=== PATIENT | male | born 1945 | race Caucasian/White ===

== ENCOUNTER → 2017-07-19 08:42 | Outpatient (CLI) | payer MEDICARE, OTHER, SELFPAY ==
[2017-07-19 10:38] LABS: PSA,Total- Diagnostic 0.08 ng/mL (0.0-4.0)
== END ==
PROVIDERS: Family Provider Family Medicine; PCP Family Medicine; Visit Provider Urology
DX: R97.20 Elevated prostate specific antigen [PSA] (principal)
CPT/HCPCS: 36415; 84153

== ENCOUNTER → 2017-09-14 10:40 | Outpatient (CLI) | payer MEDICARE, OTHER, SELFPAY ==
--- NOTE | 2017-09-14 10:41 | EKG12_ITS ---
Test Reason : PREOP Blood Pressure : / mmHG Vent. Rate : 077 BPM Atrial Rate : 077 BPM P-R Int : 176 ms QRS Dur : 150 ms QT Int : 448 ms P-R-T Axes : 066 007 042 degrees QTc Int : 506 ms Normal sinus rhythm Right bundle branch block Abnormal ECG Confirmed by DONTE LUU, SIERRA ([id number]), magazine editor CRISPIN GARCIA ([id number]) on 09/15/2017 9:09:32 AM Referred By: Siddharth Navarro Confirmed By:SIERRA KENT MD
== END ==
PROVIDERS: Family Provider Family Medicine; PCP Family Medicine; Visit Provider Urology
DX: Z01.818 Encounter for other preprocedural examination (principal)
CPT/HCPCS: 93005

== ENCOUNTER → 2017-11-23 07:45 | Outpatient (CLI) | payer MEDICARE, OTHER, SELFPAY ==
[2017-11-23 10:32] LABS: PSA,Total- Diagnostic 0.11 ng/mL (0.0-4.0)
== END ==
PROVIDERS: Family Provider Family Medicine; PCP Family Medicine; Visit Provider Urology
DX: C61 Malignant neoplasm of prostate (principal)
CPT/HCPCS: 36415; 84153

== ENCOUNTER → 2018-01-11 07:42 | Outpatient (CLI) | payer MEDICARE, OTHER, SELFPAY ==
[2018-01-11 08:19] LABS: Hematocrit 37.2 % (40-54); Hemoglobin 11.9 g/dl (13.0-16.5); Mean Corpuscular Hgb 26.5 pg (27.0-32.0); Mean Corpuscular Volume 82.9 fL (80-94); Mean Platelet Vol. 9.7 fl (6.2-12.0); Platelet Count 226 K/mm3 (150-450); RBC Distribution Width CV 15.1 % (11.6-14.6); RBC Distribution Width SD 45.3 fl (35.1-43.9); Red Blood Count 4.49 M/mm3 (4.6-6.2); White Blood Count 6.3 K/mm3 (4.4-11.0)
[2018-01-11 08:27] LABS: Scan Indicated on CBC? Y/N NO
[2018-01-11 08:39] LABS: Anion Gap 9 (5-15); BUN 20 mg/dL (7-18); BUN/Creat Ratio 16.4 RATIO (10-20); Calcium,Total 9.7 mg/dL (8.5-10.1); Chloride 105 mmol/L (98-107); Creatinine, Serum 1.22 mg/dL (0.70-1.30); EST Glomerular Filtration Rate 62 mL/min (>60); Est Glom Filt Rate - Afr Amer 75 mL/min (>60); Glucose 133 mg/dL (74-106); Potassium 4.4 mmol/L (3.5-5.1); Sodium Level 140 mmol/L (136-145)
== END ==
PROVIDERS: Family Provider Family Medicine; PCP Family Medicine; Visit Provider Urology
DX: Z01.812 Encounter for preprocedural laboratory examination (principal); I10 Essential (primary) hypertension; E78.00 Pure hypercholesterolemia, unspecified
CPT/HCPCS: 36415; 80048; 85027

== ENCOUNTER → 2018-01-19 17:32 | Outpatient (CLI) | payer MEDICARE, OTHER, SELFPAY | PROVIDERS: Family Provider Family Medicine; PCP Family Medicine; Visit Provider Urology | DX: R82.99 Other abnormal findings in urine (principal) | CPT/HCPCS: 87077; 87086; 87088; 87186 ==

== ENCOUNTER → 2018-02-07 16:59 | Outpatient (CLI) | payer MEDICARE, OTHER, SELFPAY | PROVIDERS: Referring Provider Urology; Visit Provider Urology | DX: R82.99 Other abnormal findings in urine (principal) | CPT/HCPCS: 87086 ==

== ENCOUNTER → 2018-02-28 08:17 | Outpatient (CLI) | payer MEDICARE, OTHER, SELFPAY ==
[2018-02-28 11:00] LABS: PSA,Total- Diagnostic 0.15 ng/mL (0.0-4.0)
== END ==
PROVIDERS: Family Provider Family Medicine; PCP Family Medicine; Referring Provider Urology; Visit Provider Urology
DX: C61 Malignant neoplasm of prostate (principal)
CPT/HCPCS: 36415; 84153

== ENCOUNTER → 2018-03-23 07:07 | Outpatient (CLI) | payer MEDICARE, OTHER, SELFPAY ==
[2018-03-23 11:03] LABS: AST(SGOT) 21 U/L (15-37); Alanine Aminotransfer ALT/SGPT 44 U/L (16-61); Albumin, Serum 3.8 g/dL (3.2-5.0); Alkaline Phosphatase 86 U/L (45-117); Anion Gap 11 (5-15); BUN 20 mg/dL (7-18); BUN/Creat Ratio 14.4 RATIO (10-20); Bilirubin, Direct 0.07 mg/dL (0.00-0.30); Calcium,Total 9.1 mg/dL (8.5-10.1); Chloride 107 mmol/L (98-107); Cholesterol 178 mg/dL (200); Creatinine, Serum 1.39 mg/dL (0.70-1.30); EST Glomerular Filtration Rate 53 mL/min (>60); Est Glom Filt Rate - Afr Amer 64 mL/min (>60); Globulin 3.8 g/dL (2.2-4.2); Glucose 122 mg/dL (74-106); High Density Lipoprotein 31 mg/dL; Protein, Total 7.6 g/dL (6.4-8.2); Sodium Level 143 mmol/L (136-145); Triglycerides 419 mg/dL
[2018-03-23 13:20] LABS: Microalbumin:Creatinine Ratio 672.9 mg/g CRE (<30 mg/g CRE)
== END ==
PROVIDERS: Family Provider Family Medicine; PCP Family Medicine; Referring Provider Family Medicine; Visit Provider Family Medicine
DX: E11.9 Type 2 diabetes mellitus without complications (principal)
CPT/HCPCS: 36415; 80048; 80061; 80076; 82043; 82570

== ENCOUNTER → 2018-05-30 13:43 | Outpatient (CLI) | payer MEDICARE, OTHER, SELFPAY ==
[2018-05-30 15:35] LABS: PSA,Total- Diagnostic 0.22 ng/mL (0.0-4.0)
== END ==
PROVIDERS: Family Provider Family Medicine; PCP Family Medicine; Referring Provider Urology; Visit Provider Urology
DX: C61 Malignant neoplasm of prostate (principal)
CPT/HCPCS: 36415; 84153

== ENCOUNTER 2018-06-23 05:52 | Day surgery (SDC) | payer MEDICARE, OTHER, SELFPAY ==
--- NOTE | 2018-06-22 17:03 | PCM.HP.BLA ---
History and Physical Date of Admission: 06/23/18 In 2004 patient had PSA of five and Chiqui 3+ 4, then had XRT . During follow-up evaluation develop rectal cancere and colostomy and closure and doing well. Apparently part of the prostate was and involved in the rectal cancer. PSA is increasing too quickly and now has adenopathy, abnormal prostate on CT and ureteral obstruction as well as questionable nodules in lungs. S/p bilateral stents. He had a CT scan at [facility]. And found to have ureteral obstruction. PSA in very low at 0.22 but rising , on Hormone therapy he is going to see Dr Funk we could start zytiga but will see what Dr Funk thinks plan to change his stent in Jun. ALLERGIES: None MEDICATIONS: Flomax 0.4 mg capsule 1 capsule PO BID Amlodipine Besylate 5 mg tablet Benazepril Hcl Losartan Potassium Metoprolol Succinate Simvastatin Notes: Had Pneumonia vaccine 2013 PSH: Catheterize For Residual - 01/19/2018 Cysto Remove Stent FB Sim - 01/13/2018, 09/16/2017 Cystoscopy Insert Stent - 01/13/2018, Right - 05/27/2017, 02/02/2017, 10/08/2016, 02/11/2016, 2013 Cystoscopy Retrogrades, Left - 05/27/2017, 02/11/2016 Depolupron 1 3 4 Month - 03/06/2018, 11/29/2017, 07/25/2017, 03/24/2017, 12/20/2016, 09/13/2016, 06/14/2016, 03/08/2016 Initial Male VB Sounds - 03/20/2018 Injection, Degarelix, 1 Mg - 02/02/2016 Prostate Needle Biopsy - 2004 NON- PSH: Colon Resection - 2013 Colonoscopy Patient documented to have received pneumococcal vaccination PMH: Post-traumatic urethral stricture, male, meatal - 03/20/2018 Benign prostatic hyperplasia with lower urinary tract symptoms (Stable) - 03/06/2018, - 02/02/2016, - 2015, - 2015, - 2015 Other retention of urine (Stable) - 03/06/2018, - 02/07/2018 (Stable), - 01/23/2018, - 01/19/2018 Acute cystitis without hematuria - 01/23/2018 Frequency of micturition - 01/23/2018 Nocturia - 01/23/2018 Urgency of urination - 01/23/2018 Elevated prostate specific antigen [PSA] - 07/25/2017 Malignant neoplasm of prostate - 03/24/2017, - 12/20/2016, - 10/26/2016, - 06/14/2016, - 2016, - 03/30/2016, - 02/23/2016, - 02/02/2016, - 2015, - 2015, - 2015, - 2014, - 2014, - 2013, - 2013, - 2013, - 2012 Histology/Primary Site: Adenocarcinoma, no subtype (morphologic abnormality), Malignant neoplasm of prostate Ch[place] Score: 7 (3+4) Clinical Staging: [id number], Stage IIIC, Staged by: Managing physician on 03/06/2018 Diagnostic Confirmation: Positive histology Behaviour, Grade: Malignant, primary site, Not applicable Laterality: Left Provider at the office diagnosed the cancer Other hydronephrosis - 03/24/2017, - 06/14/2016, - 2016 Unspecified hydronephrosis - 12/20/2016, - 10/26/2016 Gross hematuria - 03/30/2016 Hematuria, unspecified - 2013 Other microscopic hematuria - 2012 Dysuria Flaccid neuropathic bladder, not elsewhere classified Splitting of urinary stream NON- PMH: 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 Tobacco Use Assessment Completed: Used Smokeless in last 30 days? Smoking cessation counseling was provided. Does not use smokeless tobacco. Social Drinker. Does not use drugs. Drinks 2 caffeinated drinks per day. Has not had a blood transfusion. 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 REVIEW OF SYSTEMS: Constitutional: Patient denies fever, chills, weight loss, and weight gain. Genitourinary: Patient reports frequent urination and urinary retention. Patient denies get up at night to void, leakage of urine, blood in urine, frequent urinary tract infections, history of stones, weak stream, and bedwetting. Notes: Reviewed previous review of systems 03/06/2018. No changes. VITAL SIGNS: 06/08/2018 10:29 AM Weight 195 lb / 88.45 kg Height 66 in / 167.64 cm BP 142/92 mmHg BMI 31.5 kg/m? - BMI Counseling was provided. MULTI-SYSTEM PHYSICAL EXAMINATION: Constitutional: Well-nourished. No physical deformities. Normally developed. Good grooming. Neck: Neck symmetrical, not swollen. Normal tracheal position. Respiratory: No labored breathing, no use of accessory muscles. Cardiovascular: Normal temperature, normal extremity pulses, no swelling, no varicosities. Lymphatic: No enlargement of neck, axillae, groin. Skin: No paleness, no jaundice, no cyanosis. No lesion, no ulcer, no rash. Neurologic / Psychiatric: Oriented to time, oriented to place, oriented to person. No depression, no anxiety, no agitation. Gastrointestinal: No mass, no tenderness, no rigidity, non obese abdomen. Eyes: Normal conjunctivae. Normal eyelids. Ears, Nose, Mouth, and Throat: Left ear no scars, no lesions, no masses. Right ear no scars, no lesions, no masses. Nose no scars, no lesions, no masses. Normal hearing. Normal lips. Musculoskeletal: Normal gait and station of head and neck. PAST DATA REVIEWED: Source Of History: Patient 05/30/18 02/28/18 11/23/17 07/19/17 03/17/17 12/14/16 09/07/16 06/11/16 PSA Total PSA 0.22 ng/mL 0.15 ng/mL 0.11 ng/mL 0.08 ng/mL 0.08 ng/mL 0.08 ng/mL 0.09 mg/dl 0.15 mg/dl Notes [facility] [address] [place], [address] This test was performed using the TPSA assay method for the [employer] system. Values obtained with different assay methods cannot be used interchangably. When changing PSA assays in the course of monitoring a patient, additional sequential testing should be carried out to confirm baseline values. [facility] [address] [place], [address] This test was performed using the TPSA assay method for the [employer] chemistry system. Values obtained with different assay methods cannot be used interchangably. When changing PSA assays in the course of monitoring a patient, additional sequential testing should be carried out to confirm baseline values. [facility] [address] [place], [place], [id number] This test was performed using the TPSA assay method for the [employer] system. Values obtained with different assay methods cannot be used interchangably. When changing PSA assays in the course of monitoring a patient, additional sequential testing should be carried out to confirm baseline values. [facility] [address] [place], [address] This test was performed using the TPSA assay method for the [employer] chemistry system. Values obtained with different assay methods cannot be used interchangably. When changing PSA assays in the course of monitoring a patient, additional sequential testing should be carried out to confirm baseline values. [facility] [address] [place], [place], [id number] This test was performed using the TPSA assay method for the [employer] system. Values obtained with different assay methods cannot be used interchangably. When changing PSA assays in the course of monitoring a patient, additional sequential testing should be carried out to confirm baseline values. [facility] [address] [place], [place], [id number] This test was performed using the TPSA assay method for the [employer] system. Values obtained with different assay methods cannot be used interchangably. When changing PSA assays in the course of monitoring a patient, additional sequential testing should be carried out to confirm baseline values. 02/02/16 05/14/11 Hormones Testosterone, Total 245 ng/dL 202 pg/dL Notes [facility] [address] [place], [place], [id number] PROCEDURES: Urinalysis - 60347 Dipstick Dipstick Cont'd Specimen: Voided Blood: about 250 Appearance: Clear Protein: Neg Color: Yellow Urobilinogen: Neg Glucose: Normal Nitrites: Neg Bilirubin: Neg Leukocyte Esterase: 2+ Ketones: Neg Eligard (3month) - J9217, 03411 SQ injection. pt tolerated injection well . Qty: 1 Adm. By: VIGNESH HUBER Unit: kit Lot No [id number] Route: SQ Exp. Date 03/16/2019 Freq: Q3M Mfgr.: PRADIP Site: ruq ASSESSMENT: ICD-10 Details 1 : Malignant neoplasm of prostate - C61 2 Benign prostatic hyperplasia with lower urinary tract symptoms - N40.1 3 Frequency of micturition - R35.0 PLAN: Document Letter(s): Created for Patient: Clinical Summary Notes: 73-year-old male with a complicated history of prostate cancer treated with radiation therapy he then had rectal cancer which was involved in the prostate has retroperitoneal adenopathy. Required bilateral stents for obstruction and the stents need to be changed every so often. Plan the changes stents in June. Also had episode of urinary retention due to prostate, underwent Urolift procedure which is open up the prostate and now is able to urinate and not and retention anymore. Were to continue with hormone deprivation therapy. Last PSA was still fairly low at 0.22 but the patient is concerned about rising and were to continue with observation certainly we could continue treatments and may need to add zytiga or Xtandi if the PSA continues to go higher or if there's any signs of metastatic disease. He's also to see Dr. aMchado coming up shortly. I'll see him in three months for another Eligard. Plan for a stent change in [place].
--- NOTE | 2018-06-22 17:06 | HP.PCM_ITS ---
History and Physical Date of Admission: 06/23/18 In 2004 patient had PSA of five and Chiqui 3+ 4, then had XRT . During follow-up evaluation develop rectal cancere and colostomy and closure and doing well. Apparently part of the prostate was and involved in the rectal cancer. PSA is increasing too quickly and now has adenopathy, abnormal prostate on CT and ureteral obstruction as well as questionable nodules in lungs. S/p bilateral stents. He had a CT scan at [facility]. And found to have ureteral obstruction. PSA in very low at 0.22 but rising , on Hormone therapy he is going to see Dr Funk we could start zytiga but will see what Dr Funk thinks plan to change his stent in Jun. ALLERGIES: None MEDICATIONS: Flomax 0.4 mg capsule 1 capsule PO BID Amlodipine Besylate 5 mg tablet Benazepril Hcl Losartan Potassium Metoprolol Succinate Simvastatin Notes: Had Pneumonia vaccine 2013 PSH: Catheterize For Residual - 01/19/2018 Cysto Remove Stent FB Sim - 01/13/2018, 09/16/2017 Cystoscopy Insert Stent - 01/13/2018, Right - 05/27/2017, 02/02/2017, 10/08/2016, 02/11/2016, 2013 Cystoscopy Retrogrades, Left - 05/27/2017, 02/11/2016 Depolupron 1 3 4 Month - 03/06/2018, 11/29/2017, 07/25/2017, 03/24/2017, 12/20/2016, 09/13/2016, 06/14/2016, 03/08/2016 Initial Male VB Sounds - 03/20/2018 Injection, Degarelix, 1 Mg - 02/02/2016 Prostate Needle Biopsy - 2004 NON- PSH: Colon Resection - 2013 Colonoscopy Patient documented to have received pneumococcal vaccination PMH: Post-traumatic urethral stricture, male, meatal - 03/20/2018 Benign prostatic hyperplasia with lower urinary tract symptoms (Stable) - 03/06/2018, - 02/02/2016, - 2015, - 2015, - 2015 Other retention of urine (Stable) - 03/06/2018, - 02/07/2018 (Stable), - 018, - 01/19/2018 Acute cystitis without hematuria - 01/23/2018 Frequency of micturition - 01/23/2018 Nocturia - 01/23/2018 Urgency of urination - 01/23/2018 Elevated prostate specific antigen [PSA] - 07/25/2017 Malignant neoplasm of prostate - 03/24/2017, - 12/20/2016, - 10/26/2016, - 06/14/2016, - 2016, - 03/30/2016, - 02/23/2016, - 02/02/2016, - 2015, - 2015, - 2015, - 2014, - 2014, - 2013, - 2013, - 2013, - 2012 Histology/Primary Site: Adenocarcinoma, no subtype (morphologic abnormality), Malignant neoplasm of prostate [place] Score: 7 (3+4) Clinical Staging: [id number], Stage IIIC, Staged by: Managing physician on 03/06/2018 Diagnostic Confirmation: Positive histology Behaviour, Grade: Malignant, primary site, Not applicable Laterality: Left Provider at the office diagnosed the cancer Other hydronephrosis - 03/24/2017, - 06/14/2016, - 2016 Unspecified hydronephrosis - 12/20/2016, - 10/26/2016 Gross hematuria - 03/30/2016 Hematuria, unspecified - 2013 Other microscopic hematuria - 2012 Dysuria Flaccid neuropathic bladder, not elsewhere classified Splitting of urinary stream NON- PMH: 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 Tobacco Use Assessment Completed: Used Smokeless in last 30 days? Smoking cessation counseling was provided. Does not use smokeless tobacco. Social Drinker. Does not use drugs. Drinks 2 caffeinated drinks per day. Has not had a blood transfusion. 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 REVIEW OF SYSTEMS: Constitutional: Patient denies fever, chills, weight loss, and weight gain. Genitourinary: Patient reports frequent urination and urinary retention. Patient denies get up at night to void, leakage of urine, blood in urine, frequent urinary tract infections, history of stones, weak stream, and bedwetting. Notes: Reviewed previous review of systems 03/06/2018. No changes. VITAL SIGNS: 06/08/2018 10:29 AM Weight 195 lb / 88.45 kg Height 66 in / 167.64 cm BP 142/92 mmHg BMI 31.5 kg/m? - BMI Counseling was provided. MULTI-SYSTEM PHYSICAL EXAMINATION: Constitutional: Well-nourished. No physical deformities. Normally developed. Good grooming. Neck: Neck symmetrical, not swollen. Normal tracheal position. Respiratory: No labored breathing, no use of accessory muscles. Cardiovascular: Normal temperature, normal extremity pulses, no swelling, no varicosities. Lymphatic: No enlargement of neck, axillae, groin. Skin: No paleness, no jaundice, no cyanosis. No lesion, no ulcer, no rash. Neurologic / Psychiatric: Oriented to time, oriented to place, oriented to person. No depression, no anxiety, no agitation. Gastrointestinal: No mass, no tenderness, no rigidity, non obese abdomen. Eyes: Normal conjunctivae. Normal eyelids. Ears, Nose, Mouth, and Throat: Left ear no scars, no lesions, no masses. Right ear no scars, no lesions, no masses. Nose no scars, no lesions, no masses. Normal hearing. Normal lips. Musculoskeletal: Normal gait and station of head and neck. PAST DATA REVIEWED: Source Of History: Patient 05/30/18 02/28/18 11/23/17 07/19/17 03/17/17 12/14/16 09/07/16 06/11/16 PSA Total PSA 0.22 ng/mL 0.15 ng/mL 0.11 ng/mL 0.08 ng/mL 0.08 ng/mL 0.08 ng/mL 0.09 mg/dl 0.15 mg/dl Notes [facility] [address] [place], [address] This test was performed using the TPSA assay method for the [employer] system. Values obtained with different assay methods cannot be used i nterchangably. When changing PSA assays in the course of monitoring a patient, additional sequential testing should be carried out to confirm baseline values. [facility] [address] [place], [address] This test was performed using the TPSA assay method for the [employer] system. Values obtained with different assay methods cannot be used interc hangably. When changing PSA assays in the course of monitoring a patient, additional sequential testing should be carried out to confirm baseline values. [facility] [address] [place], [place], [id number] This test was performed using the TPSA assay method for the [employer] system. Values obtained with different assay methods cannot be used interchanga mita. When changing PSA assays in the course of monitoring a patient, additional sequential testing should be carried out to confirm baseline values. [facility] [address] [place], [address] This test was performed using the TPSA assay method for the [employer] system. Values obtained with different assay methods cannot be used interchangably. When changing PSA assays in the course of monitoring a patient, additional sequential testing should be carried out to confirm baseline values. [facility] [address] [place], [place], [id number] This test was performed using the TPSA assay method for the [employer] system. Values obtained with different assay methods cannot be used interchangably. When changing PSA assays in the course of monitoring a patient, additional sequential testing should be carried out to confirm baseline values. [facility] [address] [place], [place], [id number] This test was performed using the TPSA assay method for the [employer] system. Values obtained with different assay methods cannot be used interchangably. When changing PSA assays in the course of monitoring a patient, additional sequential testing should be carried out to confirm baseline values. 02/02/16 05/14/11 Hormones Testosterone, Total 245 ng/dL 202 pg/dL Notes [facility] [address] [place], [place], [id number] PROCEDURES: Urinalysis - 26714 Dipstick Dipstick Cont'd Specimen: Voided Blood: about 250 Appearance: Clear Protein: Neg Color: Yellow Urobilinogen: Neg Glucose: Normal Nitrites: Neg Bilirubin: Neg Leukocyte Esterase: 2+ Ketones: Neg Eligard (3month) - J9217, 05706 SQ injection. pt tolerated injection well . Qty: 1 Adm. By: VIGNESH HUBER Unit: kit Lot No [id number] Route: SQ Exp. Date 03/16/2019 Freq: Q3M Mfgr.: PRADIP Site: ruq ASSESSMENT: ICD-10 Details 1 : Malignant neoplasm of prostate - C61 2 Benign prostatic hyperplasia with lower urinary tract symptoms - N40.1 3 Frequency of micturition - R35.0 PLAN: Document Letter(s): Created for Patient: Clinical Summary Notes: 73-year-old male with a complicated history of prostate cancer treated with radiation therapy he then had rectal cancer which was involved in the prostate has retroperitoneal adenopathy. Required bilateral stents for obstruction and the stents need to be changed every so often. Plan the changes stents in June. Also had episode of urinary retention due to prostate, underwent Urolift procedure which is open up the prostate and now is able to urinate and not and retention anymore. Were to continue with hormone deprivation therapy. Last PSA was still fairly low at 0.22 but the patient is concerned about rising and were to continue with observation certainly we could continue treatments and may need to add zytiga or Xtandi if the PSA continues to go higher or if there's any signs of metastatic disease. He's also to see Dr. Machado coming up shortly. I'll see him in three months for another Eligard. Plan for a stent change in [place].
[2018-06-23 06:27] VITALS: BP 191/86; PULSE 76; RESP 16; TEMP 36.4; O2SAT 100; BMI 29.6
[2018-06-23] MEDS: Cefazolin 2 GM in 0.9% Normal Saline 100 ML IV (07:19)
--- NOTE | 2018-06-23 07:51 | DCINST_ITS ---
Discharge Diet: Light diet - advance as tolerated Discharge Activity: Return to Normal Activity Call your doctor if your incision/area has: Continuous Slow Oozing, Sudden Increased Bleeding, Increased Pain/ Swelling, Increased Redness Call your doctor if you observe: Fever of 101 or Higher, Inability to urinate Suture Line Care: Avoid Pulling/Pushing, Avoid Pinching/Bending Allergies/Adverse Reactions: Allergies meperidine [From Demerol] Adverse Reaction (Verified 06/16/18 10:49) Nausea/Vom/Diarrhea Medications to take at Discharge Amlodipine [Norvasc] 5 mg PO DAILY 06/01/13 Benazepril HCl [Lotensin] 20 mg PO DAILY 06/01/13 Losartan Potassium [Cozaar] 100 mg PO DAILY 06/01/13 Metoprolol(XL)Succ [Toprol Xl (Beta Sophia)] 100 mg PO DAILY 06/01/13 Simvastatin [Zocor] 20 mg PO DAILY 06/01/13 Tamsulosin HCl [Flomax] 0.4 mg PO DAILY 06/16/18 Primary Care Physician: Rigo Izaguirre MD [Primary Care Provider] - Test Results: Test results from this visit will be discussed in further detail at your follow- up appointment, if applicable. Please Follow Up With: Siddharth Navarro MD When: KEEP APPT FOR NEXT INJECTION.
--- NOTE | 2018-06-23 07:54 | OP.PCM_ITS ---
Report of Operation Date of Procedure: 06/23/18 Pre-Operative Diagnosis: Prostate cancer bilateral hydronephrosis history of colon cancer and radiation Post-Operative Diagnosis: Same Surgery/Procedure Performed:: Cystoscopy and bilateral stent changes Description of Surgical Findings:: 73-year-old male who has a history of prostate cancer also has a history of colorectal cancer underwent radiation therapy had chemotherapy in the past has developed bilateral obstruction of both ureters which is managed with chronic stents and the stents were in their 6 months ago so he needs a new stent now is a due to get encrusteD. 73-year-old male taken back to the operating room at the smooth induction of anesthesia he was placed supine on the table. The penis and testicles are prepped and draped in usual sterile fashion. Went into the urethra with a 21 Hungarian rigid cystourethroscope the urethra was a little narrow the bulbar urethra had a minor annular stricture was able to get through this with the scope turning the scope up towards the bladder quite difficult very stiff hard from radiation got to the prostate and then identified the stent on the left side grab the stent pulled out the meatus advanced a wire through the stent backloaded over the wire with the scope and then went back into the bladder again very rigid prostate had to be very careful into point down the scope to get all through the prostate very hard rigid prostate from radiation I then pushes stent up in the good position pulled the wire and the stent called coiled in the bladder in good position I then grabbed the other stent on the right side again pulled out the meatus put a wire to the stent on the right side and then went back in the bladder and same situation with a very stiff hard prostate and then advanced a stent up on the right side once stent was in good position pulled the wire and the stent coiled in the bladder I then drained the bladder patient's anesthetic was reversed he needs to urinate before he goes home and then he will see me in a few months for his next hormone deprivation therapy shot. Type of Anesthesia:: General Drains: BILATERAL STENTS - Admit VTE Documentation VTE Present on Admission: No VTE Mechan Device Prophylaxis: SCD's
[2018-06-23 07:55] VITALS: BP 141/77; BP 191/86; PULSE 70; RESP 16; TEMP 36.2; O2SAT 97
[2018-06-23 08:00] VITALS: BP 141/79; BP 191/86; PULSE 69; RESP 16; O2SAT 95
[2018-06-23 08:17] VITALS: BP 160/85; BP 191/86; PULSE 69; RESP 18; TEMP 36.2; O2SAT 97
[2018-06-23 09:59] VITALS: BP 145/87; BP 191/86; PULSE 80; RESP 18; TEMP 36.6; O2SAT 99
== END 2018-06-23 10:02 | disposition home or self-care (01) ==
LOC: SDC 05:53 → AC 05:54
PROVIDERS: Family Provider Family Medicine; PCP Family Medicine; Referring Provider Urology; Visit Provider Urology
DX: N40.1 Benign prostatic hyperplasia with lower urinary tract symptoms (principal); R33.8 Other retention of urine; C61 Malignant neoplasm of prostate; N13.1 Hydronephrosis with ureteral stricture, not elsewhere classified; R35.0 Frequency of micturition; R97.21 Rising PSA following treatment for malignant neoplasm of prostate; C78.00 Secondary malignant neoplasm of unspecified lung; I10 Essential (primary) hypertension; E78.00 Pure hypercholesterolemia, unspecified; Z85.038 Personal history of other malignant neoplasm of large intestine; Z93.3 Colostomy status; Z79.899 Other long term (current) drug therapy
CPT/HCPCS: 00910; 52332; J7120; C1769; C2617; J2405

== ENCOUNTER → 2018-09-04 09:02 | Outpatient (CLI) | payer MEDICARE, OTHER, SELFPAY ==
[2018-09-04 10:47] LABS: PSA,Total - Annual Screen 0.26 ng/mL (0.00-4.00)
[2018-09-04 13:44] LABS: PSA,Total- Diagnostic 0.26 ng/mL (0.0-4.0)
== END ==
PROVIDERS: Family Provider Family Medicine; PCP Family Medicine; Referring Provider Urology; Visit Provider Urology
DX: C61 Malignant neoplasm of prostate (principal)
CPT/HCPCS: 36415; 84153; G0103

== ENCOUNTER → 2018-09-22 07:28 | Outpatient (CLI) | payer MEDICARE, OTHER, SELFPAY ==
[2018-09-22 10:32] LABS: Absolute Lymphocyte Count 1.13 X10^3/ul (0.83-4.51); Absolute Neutrophil Count 3.2 X10^3/uL (2.0-7.7); Basophil# 0.03 X10^3/uL; Basophil% 0.6 % (0-1); Eosinophil# 0.42 X10^3/uL; Eosinophils% 7.7 % (0-5); Hematocrit 37.8 % (40-54); Hemoglobin 12.5 g/dl (13.0-16.5); Lymphocyte # 1.13 X10^3/ul (4.0); Lymphocyte % 20.8 % (19-41); Mean Corp Hgb Conc 33.1 g/gl (32-36); Mean Corpuscular Hgb 26.8 pg (27.0-32.0); Mean Corpuscular Volume 80.9 fL (80-94); Mean Platelet Vol. 10.4 fl (6.2-12.0); Monocyte# 0.62 X10^3/uL; Monocyte% 11.4 % (0-10); Neutrophil # 3.21 X10^3/uL (2.7-7.7); Neutrophil % 59.3 % (47-70); Platelet Count 201 K/mm3 (150-450); RBC Distribution Width CV 14.9 % (11.6-14.6); RBC Distribution Width SD 43.7 fl (35.1-43.9); Red Blood Count 4.67 M/mm3 (4.6-6.2); White Blood Count 5.4 K/mm3 (4.4-11.0)
[2018-09-22 10:33] LABS: POSITIVE COUNT NO; POSITIVE DIFFERENTIAL NO; POSITIVE MORPHOLOGY NO
[2018-09-22 10:58] LABS: Anion Gap 7 (5-15); BUN 25 mg/dL (7-18); BUN/Creat Ratio 19.2 RATIO (10-20); Calcium,Total 9.2 mg/dL (8.5-10.1); Chloride 107 mmol/L (98-107); Cholesterol 212 mg/dL (200); EST Glomerular Filtration Rate 57 mL/min (>60); Est Glom Filt Rate - Afr Amer 69 mL/min (>60); Glucose 125 mg/dL (74-106); High Density Lipoprotein 35 mg/dL; Potassium 4.2 mmol/L (3.5-5.1); Sodium Level 141 mmol/L (136-145); Thyroid Stim Hormone (TSH) 2.05 uIU/mL (0.358-3.74); Triglycerides 555 mg/dL
== END ==
PROVIDERS: Family Provider Family Medicine; PCP Family Medicine; Referring Provider Family Medicine; Visit Provider Family Medicine
DX: I10 Essential (primary) hypertension (principal); R53.83 Other fatigue
CPT/HCPCS: 36415; 80048; 80061; 84443; 85025

== ENCOUNTER → 2018-12-11 08:18 | Outpatient (CLI) | payer MEDICARE, OTHER, SELFPAY ==
[2018-12-11 11:18] LABS: PSA,Total- Diagnostic 0.43 ng/mL (0.0-4.0)
== END ==
PROVIDERS: Family Provider Family Medicine; PCP Family Medicine; Referring Provider Urology; Visit Provider Urology
DX: C61 Malignant neoplasm of prostate (principal)
CPT/HCPCS: 36415; 84153

== ENCOUNTER 2019-01-05 10:46 | Day surgery (SDC) | payer MEDICARE, OTHER, SELFPAY ==
[2018-12-22 17:14] VITALS: BMI 29.6
[2019-01-05 11:21] VITALS: BP 174/84; PULSE 69; RESP 16; TEMP 35.5; O2SAT 98; BMI 29.2
[2019-01-05] MEDS: Lactated Ringers 1,000 ML 75 ML IV (11:39)
[2019-01-05] MEDS: Cefazolin 2 GM in 0.9% Normal Saline 100 ML IV (13:25)
--- NOTE | 2019-01-05 14:00 | OP.PCM_ITS ---
Report of Operation Date of Procedure: 01/05/19 Pre-Operative Diagnosis: Bilateral ureteral obstruction history of prostate cancer Post-Operative Diagnosis: The same Surgery/Procedure Performed:: Right retrograde pyelogram interpretation of fluoroscopic and images and right stent change, left retrograde pyelogram interpretation of fluoroscopic images a left stent change cystoscopy. Description of Surgical Findings:: 73-year-old male with a history of prostate cancer he is on hormone deprivation therapy he has chronic bilateral obstruction which is managed with chronic bilateral stents the stent is due to be changed presents to the operating room for bilateral stent change and retrograde pyelograms 73-year-old male taken back to the operating with smooth induction of general anesthesia he was placed in dorsolithotomy position penis and testicles were prepped and draped in usual sterile fashion went into the urethra with a 21 Setswana rigid cystourethroscope the entire length urethra is normal the sphincter was really tight the prostate was extremely tight as it is went through with the scope he had some scar tissue that developed within the prostatic urethra once I got inside the bladder grabbed the right stent pulled out the meatus put a wire up to the right stent over the wire for the Pollick catheter the retrograde pyelogram and then advanced a wire over the stent in the wire through the Pollick catheter Ms. wire up to the kidney and then pulled the wire and the cancer stent coiled in the bladder and grabbed the left stent pulled out the meatus advance a wire through the stent advance a Pollack catheter over the wire then a retrograde pyelogram and then I could see contrast in the kidney and then advanced a wire up the Pollick catheter backloaded the Pollick catheter off and then over the wire advanced a stent once a stent was good position and pulled the wire stent the kidney bladder good position on both sides drained the bladder and the patient anesthetic was reversed and I will see him next time he gets his hormone shot. Of note the prostatic urethra was very hard had scarred down it was very difficult to get in with the cystoscope to the prostatic urethra. Type of Anesthesia:: General Drains: stent/ b/l - Admit VTE Documentation VTE Present on Admission: No VTE Mechan Device Prophylaxis: SCD's
--- NOTE | 2019-01-05 14:00 | DCINST_ITS ---
Discharge Diet: Light diet - advance as tolerated Discharge Activity: Return to Normal Activity Allergies/Adverse Reactions: Allergies meperidine [From Demerol] Adverse Reaction (Verified 12/26/18 11:03) Nausea/Vom/Diarrhea Medications to take at Discharge Amlodipine [Norvasc] 5 mg PO DAILY 06/01/13 Benazepril HCl [Lotensin] 20 mg PO DAILY 06/01/13 Losartan Potassium [Cozaar] 100 mg PO DAILY 06/01/13 Metoprolol(XL)Succ [Toprol Xl (Beta Sophia)] 100 mg PO DAILY 06/01/13 Simvastatin [Zocor] 40 mg PO DAILY 06/01/13 leuprolide 22.5 mg (3 month) subcutaneous syringe 22.5 mg SC [id number] 12/22/18 Tamsulosin HCl [Flomax] 0.4 mg PO DAILY 12/26/18 Primary Care Physician: Rigo Izaguirre MD [Primary Care Provider] - Test Results: Test results from this visit will be discussed in further detail at your follow- up appointment, if applicable. Please Follow Up With: Siddharth Navarro MD When: please call to make an appointment.
[2019-01-05 14:08] VITALS: BP 151/80; BP 174/84; PULSE 71; RESP 16; TEMP 36.8; O2SAT 97
[2019-01-05 14:15] VITALS: BP 149/82; BP 174/84; PULSE 70; RESP 16; O2SAT 97
[2019-01-05 14:30] VITALS: BP 150/86; BP 174/84; PULSE 68; RESP 16; TEMP 36.6; O2SAT 94
[2019-01-05 15:26] VITALS: BP 146/72; BP 174/84; PULSE 72; RESP 16; O2SAT 98
== END 2019-01-05 17:02 | disposition home or self-care (01) ==
LOC: SDC 10:47 → AC 10:48
PROVIDERS: Family Provider Family Medicine; PCP Family Medicine; Referring Provider Urology; Visit Provider Urology
PROC: (CPT 52332; principal; 2019-01-05 12:25)
DX: N13.5 Crossing vessel and stricture of ureter without hydronephrosis (principal); C61 Malignant neoplasm of prostate; R97.21 Rising PSA following treatment for malignant neoplasm of prostate; E78.00 Pure hypercholesterolemia, unspecified; I10 Essential (primary) hypertension; N40.1 Benign prostatic hyperplasia with lower urinary tract symptoms; N13.39 Other hydronephrosis; R35.0 Frequency of micturition; Z93.3 Colostomy status; Z79.899 Other long term (current) drug therapy
CPT/HCPCS: 00910; 52332; 76000; J7120; C1769; C2617; J2405

== ENCOUNTER → 2019-02-08 09:19 | Outpatient (CLI) | payer MEDICARE, OTHER, SELFPAY ==
[2019-02-08 14:11] LABS: Color, Urine Yellow (Yellow); Glucose, Dipstick Normal (Normal); Ketone-Dipstick Negative (Negative); Leukocyte Esterase-Dipstick 500 /ul (Negative); Nitrite-Dipstick Negative (Negative); Occult Blood-Urine 250 /ul (Negative); Protein-Dipstick 100 mg/dl (Negative); Specific Gravity, Urine 1.015 (1.002-1.030); Urine Bilirubin Dipstick Negative (Negative); Urine Clarity Sl. Cloudy (Clear); Urine Urobilinogen Normal (Normal)
== END ==
PROVIDERS: Family Provider Family Medicine; PCP Family Medicine; Referring Provider Urology; Visit Provider Urology
DX: N39.0 Urinary tract infection, site not specified (principal)
CPT/HCPCS: 81002; 87086; 87088

== ENCOUNTER → 2019-03-14 13:18 | Outpatient (CLI) | payer MEDICARE, OTHER, SELFPAY ==
[2019-03-14 14:39] LABS: PSA,Total- Diagnostic 0.41 ng/mL (0.0-4.0)
== END ==
PROVIDERS: Family Provider Family Medicine; PCP Family Medicine; Referring Provider Urology; Visit Provider Urology
DX: C61 Malignant neoplasm of prostate (principal); R97.20 Elevated prostate specific antigen [PSA]
CPT/HCPCS: 36415; 84153

== ENCOUNTER → 2019-05-01 07:36 | Outpatient (CLI) | payer MEDICARE, OTHER, SELFPAY ==
[2019-05-01 10:25] LABS: Anion Gap 6 (5-15); BUN 28 mg/dL (7-18); BUN/Creat Ratio 20.6 RATIO (10-20); Calcium,Total 9.2 mg/dL (8.5-10.1); Chloride 108 mmol/L (98-107); Cholesterol 186 mg/dL (200); Creatinine, Serum 1.36 mg/dL (0.70-1.30); EST Glomerular Filtration Rate 54 mL/min (>60); Est Glom Filt Rate - Afr Amer 66 mL/min (>60); Glucose 135 mg/dL (74-106); High Density Lipoprotein 34 mg/dL; Potassium 4.2 mmol/L (3.5-5.1); Sodium Level 141 mmol/L (136-145); Triglycerides 376 mg/dL; Very Low Density Lipoprotein 75 mg/dL (5-40)
== END ==
PROVIDERS: Family Provider Family Medicine; PCP Family Medicine; Referring Provider Family Medicine; Visit Provider Family Medicine
DX: I10 Essential (primary) hypertension (principal)
CPT/HCPCS: 36415; 80048; 80061

== ENCOUNTER → 2019-06-18 10:52 | Outpatient (CLI) | payer MEDICARE, OTHER, SELFPAY ==
[2019-06-18 12:41] LABS: PSA,Total- Diagnostic 0.48 ng/mL (0.0-4.0)
== END ==
PROVIDERS: PCP Family Medicine; Referring Provider Urology; Visit Provider Urology
DX: C61 Malignant neoplasm of prostate (principal)
CPT/HCPCS: 36415; 84153

== ENCOUNTER → 2019-06-26 11:39 | Outpatient (CLI) | payer MEDICARE, OTHER, SELFPAY | PROVIDERS: PCP Family Medicine; Referring Provider Family Medicine; Visit Provider Family Medicine | DX: N39.0 Urinary tract infection, site not specified (principal) | CPT/HCPCS: 87077; 87086; 87088; 87186 ==

== ENCOUNTER 2019-07-11 13:44 | Day surgery (SDC) | payer MEDICARE, OTHER, SELFPAY ==
[2019-07-11 14:19] VITALS: BP 149/72; PULSE 75; RESP 16; TEMP 36.2; O2SAT 96; BMI 29.4
[2019-07-11] MEDS: Lactated Ringers 1,000 ML 100 ML IV (14:47)
[2019-07-11] MEDS: Cefazolin 2 GM in 0.9% Normal Saline 100 ML IV (15:39)
--- NOTE | 2019-07-11 16:24 | DCINST_ITS ---
Discharge Diet: Light diet - advance as tolerated Discharge Activity: Return to Normal Activity, May Shower Call your doctor if you observe: Fever of 101 or Higher Catheter: Guthrie to leg bag Drain: [place] Allergies/Adverse Reactions: Allergies meperidine [From Demerol] Adverse Reaction (Verified 07/04/19 08:07) Nausea/Vom/Diarrhea Medications to take at Discharge Amlodipine [Norvasc] 5 mg PO DAILY 06/01/13 Benazepril HCl [Lotensin] 20 mg PO DAILY 06/01/13 Losartan Potassium [Cozaar] 100 mg PO DAILY 06/01/13 Metoprolol(XL)Succ [Toprol Xl (Beta Sophia)] 100 mg PO DAILY 06/01/13 Simvastatin [Zocor] 40 mg PO DAILY 06/01/13 leuprolide (3 month) 22.5 mg (3 month) subcutaneous syringe 22.5 mg SC [id number] 12/22/18 Ciprofloxacin [Cipro] 500 mg PO BID #6 tab 01/05/19 Ciprofloxacin [Cipro] 500 mg PO BID #14 tab 07/11/19 The following prescriptions were given: Ciprofloxacin [Cipro] 500 mg PO BID #14 tab Transmission Status: Pending to [id number] Primary Care Physician: Rigo Izaguirre MD [Primary Care Provider] - Test Results: Test results from this visit will be discussed in further detail at your follow- up appointment, if applicable. Please Follow Up With: Siddharth Navarro MD When: in 2 weeks, please call to make an appointment.
--- NOTE | 2019-07-11 16:26 | PCM.OPRPT ---
Report of Operation Date of Procedure: 07/11/19 Pre-Operative Diagnosis: Prostatic urethral stricture, history of prostate cancer with radiation bilateral ureteral scar tissue causing bilateral obstruction Post-Operative Diagnosis: The same Surgery/Procedure Performed:: Cystoscopy, dilation of urethral stricture, prostatic, left retrograde pyelogram interpretation fluoroscopic images and left stent placement. Right retrograde pyelogram interpretation fluoroscopic images and right stent placement. Guthrie placement Complicated. 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 He has been self dilating but stopped recently because he had some difficulties dilating the urethra probably has a recurrent stricture in the prosthetic urethra. Has a very scarred down prostate. Patient was taken back to the operating room after general anesthesia he was placed in dorsolithotomy position the urethra and penis testicles were prepped and draped in usual fashion, went into the bladder and through the urethra entire length the urethra was okay except until I got to the bulbar urethra and the prostatic urethra right at the sphincter really tight area. Could not get through the scope. I then used a sounds and dilated the stricture starting at [address] up to 28 Mauritanian after dilating this and then I was able to get through with a 21 Mauritanian rigid cystourethroscope again going to the prostate is extremely tight very tight prostate. Once inside the bladder I grabbed the left stent pulled out the meatus put a wire up the stent over the wire I backloaded off the stent and then backloaded the Catheter up and then performed a retrograde pyelogram could see the contrast in the kidney and then loaded up a wire through the Pollick catheter and then backloaded over the wire and then over the wire advanced a stent it was a 6 Mauritanian by 24 cm stent.. Once the stent was in good position then I pulled out the wire and the stent coiled in the kidney bladder good position I then went to the other side and grabbed the stent, grabbed the left stent pulled out the meatus pulled a wire through the left stent was able to get up to the kidney and then over the stent I backloaded the stent off the wire. I then advanced a new Pollick catheter over the wire and performed a retrograde pyelogram. I then advanced a stent up on the left side once a stent was a good position and pulled the wire of the stent coiled in the kidney bladder good position. I then drained the bladder both stents were in place he had extensive scarred scar tissue that was in the prostatic urethra that had to be dilated so we can put a catheter in over a wire I put a 18 Mauritanian moapa tip catheter he will go home with a catheter for 2 weeks and will remove in 2 weeks in the office he will go home with antibiotics. Type of Anesthesia:: General Drains: stent bilateral. - Admit VTE Documentation VTE Present on Admission: No VTE Mechan Device Prophylaxis: SCD's
[2019-07-11 16:35] VITALS: BP 149/72; BP 150/84; PULSE 74; RESP 16; TEMP 36.4; O2SAT 97
[2019-07-11 16:45] VITALS: BP 131/67; BP 149/72; PULSE 73; RESP 16; O2SAT 98
[2019-07-11 17:00] VITALS: BP 149/72; BP 158/78; PULSE 71; RESP 16; O2SAT 97
[2019-07-11 17:08] VITALS: BP 148/72; BP 149/72; PULSE 71; RESP 16; TEMP 36.7; O2SAT 97
[2019-07-11 18:28] VITALS: BP 148/63; BP 149/72; PULSE 84; RESP 20; TEMP 36.7; O2SAT 97
== END 2019-07-11 18:38 | disposition home or self-care (01) ==
LOC: SDC 13:44 → AC 13:46
PROVIDERS: PCP Family Medicine; Referring Provider Urology; Visit Provider Urology
PROC: (CPT 52332; principal; 2019-07-11 15:30)
DX: Z46.6 Encounter for fitting and adjustment of urinary device (principal); N35.819 Other urethral stricture, male, unspecified site; E78.00 Pure hypercholesterolemia, unspecified; I10 Essential (primary) hypertension; T66.XXXA Radiation sickness, unspecified, initial encounter; Y84.2 Radiological procedure and radiotherapy as the cause of abnormal reaction of the patient, or of later complication, without mention of misadventure at the time of the procedure; Z93.3 Colostomy status; Z79.899 Other long term (current) drug therapy; Z85.46 Personal history of malignant neoplasm of prostate; N35.011 Post-traumatic bulbous urethral stricture; Z85.118 Personal history of other malignant neoplasm of bronchus and lung; N39.3 Stress incontinence (female) (male)
CPT/HCPCS: 00910; 52332; 76000; J7120; A4216; C1769; C2617

== ENCOUNTER → 2019-09-12 12:34 | Outpatient (CLI) | payer MEDICARE, OTHER, SELFPAY | PROVIDERS: PCP Family Medicine; Referring Provider Urology; Visit Provider Urology | DX: Z01.818 Encounter for other preprocedural examination (principal) ==

== ENCOUNTER → 2019-09-26 10:05 | Outpatient (CLI) | payer MEDICARE, OTHER, SELFPAY ==
[2019-09-26 12:48] LABS: PSA,Total- Diagnostic 0.55 ng/mL (0.0-4.0)
== END ==
PROVIDERS: PCP Family Medicine; Referring Provider Urology; Visit Provider Urology
DX: C61 Malignant neoplasm of prostate (principal)
CPT/HCPCS: 36415; 84153

== ENCOUNTER → 2019-10-01 07:01 | Outpatient (CLI) | payer MEDICARE, OTHER, SELFPAY ==
[2019-10-01 10:20] LABS: Anion Gap 8 (5-15); BUN 25 mg/dL (7-18); BUN/Creat Ratio 18.1 RATIO (10-20); Calcium,Total 9.7 mg/dL (8.5-10.1); Chloride 104 mmol/L (98-107); Cholesterol 199 mg/dL (200); Creatinine, Serum 1.38 mg/dL (0.70-1.30); EST Glomerular Filtration Rate 53 mL/min (>60); Est Glom Filt Rate - Afr Amer 64 mL/min (>60); Glucose 144 mg/dL (74-106); High Density Lipoprotein 35 mg/dL; Potassium 4.4 mmol/L (3.5-5.1); Sodium Level 138 mmol/L (136-145); Triglycerides 455 mg/dL
== END ==
PROVIDERS: PCP Family Medicine; Referring Provider Family Medicine; Visit Provider Family Medicine
DX: I10 Essential (primary) hypertension (principal); R82.998 Other abnormal findings in urine
CPT/HCPCS: 36415; 80048; 80061; 87077; 87086; 87088; 87186

== ENCOUNTER → 2020-01-02 08:39 | Outpatient (CLI) | payer MEDICARE, OTHER, SELFPAY ==
[2020-01-02 10:46] LABS: PSA,Total- Diagnostic 0.68 ng/mL (0.0-4.0)
== END ==
PROVIDERS: PCP Family Medicine; Referring Provider Urology; Visit Provider Urology
DX: C61 Malignant neoplasm of prostate (principal)
CPT/HCPCS: 36415; 84153

== ENCOUNTER → 2020-01-07 16:53 | Outpatient (CLI) | payer MEDICARE, OTHER, SELFPAY | PROVIDERS: PCP Family Medicine; Referring Provider Urology; Visit Provider Urology | DX: N39.0 Urinary tract infection, site not specified (principal) | CPT/HCPCS: 87077; 87086; 87088; 87186 ==

== ENCOUNTER 2020-01-23 07:07 | Day surgery (SDC) | payer MEDICARE, OTHER, SELFPAY ==
[2020-01-23 07:35] VITALS: BP 168/79; PULSE 70; RESP 16; TEMP 36.4; O2SAT 95; BMI 28.6
[2020-01-23] MEDS: Lactated Ringers 1,000 ML 100 ML IV (07:47)
[2020-01-23] MEDS: Cefazolin 2 GM in 0.9% Normal Saline 100 ML IV (08:51)
[2020-01-23] MEDS: Ketorolac 15 MG/ML Vial IV (09:26)
--- NOTE | 2020-01-23 09:31 | DCINST_ITS ---
Discharge Diet: No Restrictions Discharge Activity: Return to Normal Activity, May Not Drive - for 2 days. Additional Activity Instructions:: Please be aware that pain medications may cause nausea. You should typically eat light foods as you take your pain medication. Pain medication may cause constipation, if this is a problem for you, please discuss with your doctor. Allergies/Adverse Reactions: Allergies hydromorphone [From Dilaudid] Adverse Reaction (Verified 01/23/20 07:34) Other tremors PostOp/ not certain if from Dilaudid meperidine [From Demerol] Adverse Reaction (Verified 01/23/20 07:34) Nausea/Vom/Diarrhea Medications to take at Discharge Amlodipine [Norvasc] 5 mg PO DAILY 06/01/13 Benazepril HCl [Lotensin] 20 mg PO DAILY 06/01/13 Losartan Potassium [Cozaar] 100 mg PO DAILY 06/01/13 Metoprolol(XL)Succ [Toprol Xl (Beta Sophia)] 100 mg PO DAILY 06/01/13 Simvastatin [Zocor] 40 mg PO DAILY 06/01/13 leuprolide (3 month) 22.5 mg (3 month) subcutaneous syringe 22.5 mg SC [id number] 12/22/18 Cephalexin [Keflex] 500 mg PO Q8 5 Days #15 cap 01/23/20 The following prescriptions were given: Cephalexin [Keflex] 500 mg PO Q8 5 Days #15 cap Transmission Status: Pending to [id number] Primary Care Physician: Rigo Izaguirre MD [Primary Care Provider] - Test Results: Test results from this visit will be discussed in further detail at your follow- up appointment, if applicable. Please Follow Up With: Siddharth Navarro MD When: please call to make an appointment.
--- NOTE | 2020-01-23 09:33 | PCM.HP.STD ---
History of Present Illness Date of Admission: 01/23/20 Chief Complaint: Bilateral stents and prostate cancer bilateral ureteral obstruction The patient is a 75 year old male with a history of prostate cancer treated with radiation in the past unfortunately developed severe stricture and scar tissue in the prostatic channel also bilateral ureteral strictures he needs bilateral stents to keep his kidneys drained he is now due for stent change on both sides. Past Medical History Medical History: Medical History (Last Updated 12/22/18 @ 17:09 by Leslie Ellis) Cancer C80.1 HTN (hypertension) I10 Allergies hydromorphone [From Dilaudid] Adverse Reaction (Verified 01/23/20 07:34) Other tremors PostOp/ not certain if from Dilaudid meperidine [From Demerol] Adverse Reaction (Verified 01/23/20 07:34) Nausea/Vom/Diarrhea Home Medications: Ambulatory Orders Medication Instructions Recorded Amlodipine [Norvasc] 5 mg PO DAILY 06/01/13 Benazepril HCl [Lotensin] 20 mg PO DAILY 06/01/13 Losartan Potassium [Cozaar] 100 mg PO DAILY 06/01/13 Metoprolol(XL)Succ [Toprol Xl 100 mg PO DAILY 06/01/13 (Beta Sophia)] Simvastatin [Zocor] 40 mg PO DAILY 06/01/13 leuprolide (3 month) 22.5 mg (3 22.5 mg SC [id number] 12/22/18 month) subcutaneous syringe Cephalexin [Keflex] 500 mg PO Q8 5 Days #15 cap 01/23/20 Surgical History: Surgical History (Last Updated 12/22/18 @ 17:09 by Leslie Ellis) History of appendectomy Z90.49 History of cholecystectomy Z90.49 Surgical History: no surgical history Smoking Status: Never smoker Review of Systems Constitutional: Denies: Chills, Fever, Weight Change HEENT: Denies: Head Aches, Sinus Congestion, Sinus Drainage Cardiovascular: Denies: Chest Pain, Palpitations Respiratory: Denies: Cough, Shortness of breath at rest, Sputum production Gastrointestinal: Denies: Abdominal Pain, Nausea, Vomiting Genitourinary: Denies: Dysuria Musculoskeletal: Denies: Joint Pain, Joint Tenderness Skin: Denies: Rash, Wounds Neurological: Denies: Numbness, Tingling, Focal weakness Psychiatric: Denies: Anxiety, Depression, Homicidal Ideations, Suicidal Ideations Hematologic/ Lymphatic: Denies: Easy Bruising, Easy Bleeding VTE Information - Inpt Only VTE Present on Admission: No - Physical Exam Vitals/I&O's: Vital Signs Temp Pulse Resp BP Pulse Ox 97.6 F L 70 16 168/79 H 95 01/23/20 07:35 01/23/20 07:35 01/23/20 07:35 01/23/20 07:35 01/23/20 07:35 Oxygen Delivery Method Room Air Weight: 90.5 kg Body Mass Index (BMI) 28.6 Intake and Output for Last 24 Hours 01/21/20 01/22/20 01/23/20 23:59 23:59 23:59 Intake Total 110 / 110 Balance 110 / 110 General: Alert, Oriented x3, Cooperative HEENT: Atraumatic, PERRLA, EOMI, Normocephalic Neck: Supple, No JVD, Negative Carotid Bruits Lungs: Clear to auscultation, Normal air movement Cardiovascular: Regular rate, No murmurs Abdomen: Bowel Sounds Present, Soft, Non Tender Extremities: No edema, Capillary Refill Less than 3 Seconds Skin: No rashes, No breakdown Musculoskeletal: No Tenderness to Palpation of Joints or Extremities Neurological: Cranial nerves II-XII grossly intact Psych/Mental Status: Normal Affect, Appropriate Current Medications Acetaminophen (Tylenol) 650 mg PO Q4H PRN PRN PRN Reason: Pain Score 1-5/10 Lactated Ringer's () 1,000 mls @ 100 mls/hr IV .Q10H TEE Last Admin: 01/23/20 07:47 Dose: 100 mls/hr Documented by: Ketorolac Tromethamine (Toradol (Bkc)) 15 mg IV X1 ONE Stop: 01/23/20 09:27 Metoclopramide HCl (Reglan) 10 mg IV X1 PRN PRN Reason: NAUSEA/VOMITING Ondansetron HCl (Zofran) 4 mg IV X1 PRN PRN Reason: NAUSEA Assessment/Plan All Active Problems (Last Updated 12/22/18 @ 17:09 by Leslie Ellis) Avulsion of skin of left hand (Acute) Ureteral obstruction (Acute) Bilateral hydronephrosis (Acute) Prostate cancer (Acute) Plan to proceed with bilateral stent changes
--- NOTE | 2020-01-23 09:35 | OP.PCM_ITS ---
Report of Operation Date of Procedure: 01/23/20 Pre-Operative Diagnosis: Bilateral ureteral obstruction bilateral stents history of prostate cancer Post-Operative Diagnosis: Same Surgery/Procedure Performed:: Cystoscopy and bilateral stent changes, bilateral retrograde pyelograms interpretation fluoroscopic images. Description of Surgical Findings:: 75-year-old male taken back to the operating room at the smooth induction of general anesthesia he was placed in dorsolithotomy position the penis and testicles were prepped and draped in usual sterile fashion went into the bladder with a 21 Barb[place] rigid cystourethroscope was able to get through the urethra quite easily he did have severe strictures along the course of the prostate was able to get through these with a 21 Barb[place] scope a little easier than usual. Then once inside the bladder I found the left stent grabbed the stent pulled out the meatus advance a wire up to the left kidney perform direct left retrograde pyelogram and then over the wire I advanced a 6 Barbadian by 24 cm stent once a stent was a good position pulled the wire and the stent: The kidney bladder good position. I then went to the left side and grabbed the left stent pulled out the meatus put a wire up to the left side put a Pollick catheter up performed a retrograde pyelogram and then over the wire I advanced a stent a 6 Barbadian by 24 cm stent once a stent was in good position then I pulled the wire the stent: The kidney bladder good position the bladder was drained no catheter was left. Spoke to the family afterwards and will see him back in the office for another injection for hormone therapy for his prostate cancer in a few months. Type of Anesthesia:: General - Admit VTE Documentation VTE Present on Admission: No VTE Mechan Device Prophylaxis: SCD's
[2020-01-23 09:38] VITALS: BP 157/75; BP 168/79; PULSE 69; RESP 17; TEMP 36.2; O2SAT 100
[2020-01-23 09:45] VITALS: BP 149/71; BP 168/79; PULSE 69; RESP 16; O2SAT 98
[2020-01-23 10:00] VITALS: BP 143/73; BP 168/79; PULSE 69; RESP 16; O2SAT 98
[2020-01-23 10:08] VITALS: BP 152/76; BP 168/79; PULSE 68; RESP 16; TEMP 36.3; O2SAT 98
[2020-01-23 10:49] VITALS: BP 168/79; BP 171/84; PULSE 73; RESP 18; TEMP 36.1; O2SAT 100
== END 2020-01-23 10:59 | disposition home or self-care (01) ==
LOC: SDC 07:09 → AC 07:10
PROVIDERS: Anesthesiology; PCP Family Medicine; Referring Provider Urology; Visit Provider Urology
PROC: (CPT 52332; principal; 2020-01-23 09:00)
DX: C61 Malignant neoplasm of prostate (principal); Z11.59 Encounter for screening for other viral diseases; I10 Essential (primary) hypertension; N13.1 Hydronephrosis with ureteral stricture, not elsewhere classified; E78.00 Pure hypercholesterolemia, unspecified; Z79.899 Other long term (current) drug therapy; Z85.048 Personal history of other malignant neoplasm of rectum, rectosigmoid junction, and anus; Z93.3 Colostomy status; Z87.440 Personal history of urinary (tract) infections
CPT/HCPCS: 52332; 76000; 87635; C9803; J7120; C1769; C2617; J2405; U0003

== ENCOUNTER → 2020-03-31 08:25 | Outpatient (CLI) | payer MEDICARE, OTHER, SELFPAY ==
[2020-03-31 10:09] LABS: Anion Gap 9 (5-15); BUN 38 mg/dL (7-18); BUN/Creat Ratio 20.3 RATIO (10-20); Calcium,Total 9.5 mg/dL (8.5-10.1); Chloride 109 mmol/L (98-107); Cholesterol 166 mg/dL (200); Creatinine, Serum 1.87 mg/dL (0.70-1.30); EST Glomerular Filtration Rate 37 mL/min (>60); Est Glom Filt Rate - Afr Amer 45 mL/min (>60); Glucose 158 mg/dL (74-106); High Density Lipoprotein 37 mg/dL; PSA,Total- Diagnostic 0.72 ng/mL (0.0-4.0); Potassium 4.4 mmol/L (3.5-5.1); Sodium Level 143 mmol/L (136-145); Triglycerides 196 mg/dL; Very Low Density Lipoprotein 39 mg/dL (5-40)
== END ==
PROVIDERS: PCP Family Medicine; Referring Provider Family Medicine; Visit Provider Family Medicine
DX: C61 Malignant neoplasm of prostate (principal); E11.9 Type 2 diabetes mellitus without complications
CPT/HCPCS: 36415; 80048; 80061; 84153

== ENCOUNTER → 2020-04-17 16:03 | Outpatient (CLI) | payer MEDICARE, OTHER, SELFPAY | PROVIDERS: PCP Family Medicine; Referring Provider Urology; Visit Provider Urology | DX: N30.00 Acute cystitis without hematuria (principal) | CPT/HCPCS: 87077; 87086; 87088; 87186 ==

== ENCOUNTER → 2020-04-23 18:06 | Outpatient (CLI) | payer MEDICARE, OTHER, SELFPAY | PROVIDERS: PCP Family Medicine; Referring Provider Family Medicine; Visit Provider Family Medicine | DX: Z20.828 Contact with and (suspected) exposure to other viral communicable diseases (principal) | CPT/HCPCS: 87635; U0003 ==

== ENCOUNTER 2020-05-28 09:41 | Day surgery (SDC) | payer MEDICARE, OTHER, SELFPAY ==
[2020-05-28] VITALS (7 sets, daily range): BP systolic 114–133; BP diastolic 43–71; PULSE 71–76; RESP 16–18; TEMP 36.4–36.6; O2SAT 95–98; BMI 27.6
[2020-05-28] MEDS: Lactated Ringers 1,000 ML 100 ML IV (10:41)
--- NOTE | 2020-05-28 10:46 | HP.PCM_ITS ---
Problem List (1) Bilateral hydronephrosis Status: Acute (2) Prostate cancer Status: Acute History of Present Illness Date of Admission: 05/28/20 Chief Complaint: Bilateral ureteral obstruction and prostate cancer. Urethral strictures The patient is a 75 year old male with a history of prostate cancer prior radiation he had a Guthrie placed in the office for dense urethral strictures we talked about a suprapubic catheter but he does not have a put in, so today we can remove the catheter and change both the stents and will put a new catheter in for a few more weeks to let the stricture is healed up. Past Medical History Medical History: Medical History (Last Reviewed 05/28/20 @ 10:[address] Siddharth Navarro MD) Cancer C80.1 HTN (hypertension) I10 Allergies hydromorphone [From Dilaudid] Adverse Reaction (Verified 04/25/20 11:21) Other tremors PostOp/ not certain if from Dilaudid meperidine [From Demerol] Adverse Reaction (Verified 04/25/20 11:21) Nausea/Vom/Diarrhea Home Medications: Ambulatory Orders Medication Instructions Recorded Amlodipine [Norvasc] 10 mg PO DAILY 06/01/13 Benazepril HCl [Lotensin] 20 mg PO DAILY 06/01/13 Losartan Potassium [Cozaar] 100 mg PO DAILY 06/01/13 Metoprolol(XL)Succ [Toprol Xl 100 mg PO DAILY 06/01/13 (Beta Sophia)] Simvastatin [Zocor] 40 mg PO DAILY 06/01/13 leuprolide (3 month) 22.5 mg (3 22.5 mg SC [id number] 12/22/18 month) subcutaneous syringe Amoxicillin/Potassium Clav [Amox 1 ea PO BID 04/25/20 Tr-K Clv 875-125 mg Tab] Ciprofloxacin HCl 500 mg PO BID 04/25/20 metFORMIN (XR) [Glucophage Xr] 500 mg PO DAILY 04/25/20 Surgical History: Surgical History (Last Updated 12/22/18 @ 17:09 by Leslie Ellis) History of appendectomy Z90.49 History of cholecystectomy Z90.49 Surgical History: no surgical history Smoking Status: Never smoker Tobacco Use: Non-smoker Review of Systems Constitutional: Denies: Chills, Fever, Weight Change HEENT: Denies: Head Aches, Sinus Congestion, Sinus Drainage Cardiovascular: Denies: Chest Pain, Palpitations Respiratory: Denies: Cough, Shortness of breath at rest, Sputum production Gastrointestinal: Denies: Abdominal Pain, Nausea, Vomiting Genitourinary: Denies: Dysuria Musculoskeletal: Denies: Joint Pain, Joint Tenderness Skin: Denies: Rash, Wounds Neurological: Denies: Numbness, Tingling, Focal weakness Psychiatric: Denies: Anxiety, Depression, Homicidal Ideations, Suicidal Ideations Hematologic/ Lymphatic: Denies: Easy Bruising, Easy Bleeding VTE Information - Inpt Only VTE Present on Admission: No - Physical Exam Vitals/I&O's: Vital Signs Temp Pulse Resp BP Pulse Ox 97.5 F L 76 16 133/71 H 98 05/28/20 10:37 05/28/20 10:37 05/28/20 10:37 05/28/20 10:37 05/28/20 10:37 Oxygen Delivery Method Room Air Weight: 87.543 kg Body Mass Index (BMI) 27.6 General: Alert, Oriented x3, Cooperative HEENT: Atraumatic, PERRLA, EOMI, Normocephalic Neck: Supple, No JVD, Negative Carotid Bruits Lungs: Clear to auscultation, Normal air movement Cardiovascular: Regular rate, No murmurs Abdomen: Bowel Sounds Present, Soft, Non Tender Extremities: No edema, Capillary Refill Less than 3 Seconds Skin: No rashes, No breakdown Musculoskeletal: No Tenderness to Palpation of Joints or Extremities Neurological: Cranial nerves II-XII grossly intact Psych/Mental Status: Normal Affect, Appropriate Current Medications Lactated Ringer's () 1,000 mls @ 100 mls/hr IV .Q10H [facility] Assessment/Plan All Active Problems (Last Updated 12/22/18 @ 17:09 by Leslie Ellis) Bilateral hydronephrosis (Acute) Avulsion of skin of left hand (Acute) Ureteral obstruction (Acute) Bilateral hydronephrosis (Acute) Prostate cancer (Acute) 75-year-old male with prostate cancer on hormone therapy and treatment when to go for bilateral stent changes today and dilation of urethral strictures and placement of Guthrie catheter.
--- NOTE | 2020-05-28 10:50 | OP.PCM_ITS ---
Problem List (1) Bilateral hydronephrosis Status: Acute (2) Prostate cancer Status: Acute Report of Operation Date of Procedure: 05/28/20 Pre-Operative Diagnosis: Bilateral ureteral obstruction, dense urethral strictures Post-Operative Diagnosis: Same Surgery/Procedure Performed:: Cystoscopy and dilation of dense urethral strictures and change left and right stents and Guthrie placement Description of Surgical Findings:: Patient was taken back to the operating room after induction of general anesthesia, the patient was placed in dorsolithotomy position. The urethra and genitals were prepped and draped in usual sterile fashion. Using a 21 Namibian rigid cystourethroscope the entire length of the urethra was severely strictured with multiple dense strictures I then dilated the strictures with sounds to perform a dilation. I then went to the prostatic urethra was very dense.. Identified the trigone the left and right ureteral orifice. I then cannulated the left ureteral orifice and advanced a wire up into the kidney. I then backloaded a 5 Namibian open ended catheter over the wire and injected contrast to delineate the anatomy. After the retrograde was performed I then used fluoroscopic images and guidance to advanced a wire up into the kidney and over the 0.038 glidewire I advanced a 6 Namibian by 26 cm double pigtail stent. I then pulled the 0.038 Glidewire off and the stent coiled in the kidney bladder good position. I then cannulated the right ureteral orifice and advanced a wire up into the kidney. I then backloaded a 5 [place]ibian open ended catheter over the wire and injected contrast to delineate the anatomy. After the retrograde was performed I then used fluoroscopic images and guidance to advanced a wire up into the kidney and over the 0.038 glidewire I advanced a 6 Namibian by 26 cm double pigtail stent. I then pulled the 0.038 Glidewire off and the stent coiled in the kidney bladder good position.The bladder was then drained. We confirmed the position of the stent by fluoroscopy. Guthrie catheter was then placed in the bladder to gravity drainage urine was fairly clear. Patient anesthetic was reversed and was taken back to the PACU in good condition. Type of Anesthesia:: General Drains: stents bilateral - Admit VTE Documentation VTE Present on Admission: No VTE Mechan Device Prophylaxis: SCD's
--- NOTE | 2020-05-28 10:50 | DCINST_ITS ---
Discharge Diet: Light diet - advance as tolerated Discharge Activity: Return to Normal Activity Suture Line Care: Avoid Pulling/Pushing, Avoid Pinching/Bending Catheter: Guthrie to leg bag, Guthrie to large bag Drain: [place] Allergies/Adverse Reactions: Allergies hydromorphone [From Dilaudid] Adverse Reaction (Verified 04/25/20 11:21) Other tremors PostOp/ not certain if from Dilaudid meperidine [From Demerol] Adverse Reaction (Verified 04/25/20 11:21) Nausea/Vom/Diarrhea Medications to take at Discharge Amlodipine [Norvasc] 10 mg PO DAILY 06/01/13 Benazepril HCl [Lotensin] 20 mg PO DAILY 06/01/13 Losartan Potassium [Cozaar] 100 mg PO DAILY 06/01/13 Metoprolol(XL)Succ [Toprol Xl (Beta Sophia)] 100 mg PO DAILY 06/01/13 Simvastatin [Zocor] 40 mg PO DAILY 06/01/13 leuprolide (3 month) 22.5 mg (3 month) subcutaneous syringe 22.5 mg SC [id number] 12/22/18 Amoxicillin/Potassium Clav [Amox Tr-K Clv 875-125 mg Tab] 1 ea PO BID 04/25/20 Ciprofloxacin HCl 500 mg PO BID 04/25/20 metFORMIN (XR) [Glucophage Xr] 500 mg PO DAILY 04/25/20 Primary Care Physician: Rigo Izaguirre MD [Primary Care Provider] - Test Results: Test results from this visit will be discussed in further detail at your follow- up appointment, if applicable. Please Follow Up With: Siddharth Navarro MD When: in 2 weeks, please call to make an appointment.
[2020-05-28] MEDS: Cefazolin 2 GM in 0.9% Normal Saline 100 ML IV (11:01)
[2020-05-28 11:05] LABS: Bedside Glucose 123 mg/dL (70-110)
== END 2020-05-28 13:06 | disposition home or self-care (01) ==
LOC: SDC 09:42 → AC 10:02
PROVIDERS: PCP Family Medicine; Referring Provider Family Medicine; Visit Provider Urology
PROC: 0T9B40Z Drainage of Bladder with Drainage Device, Percutaneous Endoscopic Approach (ICD-10-PCS; CPT 52005; principal; 2020-05-28 11:35)
DX: N13.1 Hydronephrosis with ureteral stricture, not elsewhere classified (principal); I10 Essential (primary) hypertension; Z85.46 Personal history of malignant neoplasm of prostate; Z92.3 Personal history of irradiation; Z79.84 Long term (current) use of oral hypoglycemic drugs; Z79.899 Other long term (current) drug therapy; N40.1 Benign prostatic hyperplasia with lower urinary tract symptoms; E78.00 Pure hypercholesterolemia, unspecified; E11.9 Type 2 diabetes mellitus without complications; Z85.828 Personal history of other malignant neoplasm of skin; Z85.048 Personal history of other malignant neoplasm of rectum, rectosigmoid junction, and anus
CPT/HCPCS: 00910; 52332; 76000; 82962; J7120; C1769; C2617

== ENCOUNTER → 2020-07-07 07:27 | Outpatient (CLI) | payer MEDICARE, OTHER, SELFPAY ==
[2020-05-28 10:37] VITALS: BMI 27.6
[2020-07-07 10:43] LABS: ALB/GLOB Ratio 0.9 RATIO (0.9-2.4); AST(SGOT) 26 U/L (15-37); Alanine Aminotransfer ALT/SGPT 42 U/L (16-61); Albumin, Serum 3.7 g/dL (3.2-5.0); Alkaline Phosphatase 82 U/L (45-117); Anion Gap 7 (5-15); BUN 27 mg/dL (7-18); BUN/Creat Ratio 19.3 RATIO (10-20); Calcium,Total 9.6 mg/dL (8.5-10.1); Chloride 107 mmol/L (98-107); Cholesterol 187 mg/dL (200); EST Glomerular Filtration Rate 52 mL/min (>60); Est Glom Filt Rate - Afr Amer 63 mL/min (>60); Globulin 4.2 g/dL (2.2-4.2); Glucose 137 mg/dL (74-106); High Density Lipoprotein 38 mg/dL; Potassium 4.4 mmol/L (3.5-5.1); Protein, Total 7.9 g/dL (6.4-8.2); Sodium Level 139 mmol/L (136-145); Triglycerides 351 mg/dL; Very Low Density Lipoprotein 70 mg/dL (5-40)
== END ==
PROVIDERS: PCP Family Medicine; Referring Provider Family Medicine; Visit Provider Family Medicine
DX: I10 Essential (primary) hypertension (principal); C61 Malignant neoplasm of prostate
CPT/HCPCS: 36415; 80048; 80061; 84153

== ENCOUNTER → 2020-10-16 14:54 | Outpatient (CLI) | payer MEDICARE, OTHER, SELFPAY ==
[2020-05-28 10:37] VITALS: BMI 27.6
[2020-10-16 18:08] LABS: PSA,Total- Diagnostic 1.17 ng/mL (0.0-4.0)
== END ==
PROVIDERS: PCP Family Medicine; Referring Provider Urology; Visit Provider Urology
DX: R97.20 Elevated prostate specific antigen [PSA] (principal)
CPT/HCPCS: 36415; 84153

== ENCOUNTER 2020-10-29 08:11 | Day surgery (SDC) | payer MEDICARE, OTHER, SELFPAY ==
[2020-05-28 10:37] VITALS: BMI 27.6
[2020-10-29] VITALS (9 sets, daily range): BP systolic 103–143; BP diastolic 53–72; PULSE 67–72; RESP 16; TEMP 36.1–36.9; O2SAT 95–99; BMI 28.2
[2020-10-29] MEDS: Lactated Ringers 1,000 ML 100 ML IV (08:40)
[2020-10-29] MEDS: Ciprofloxacin 400 MG/200 ML BAG 200 MG IV (08:50)
[2020-10-29 09:16] LABS: Bedside Glucose 140 mg/dL (70-110)
--- NOTE | 2020-10-29 10:35 | PCM.HP.STD ---
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 [facility] Medical History (Updated 10/23/20 @ 11:22 by Leilani Berman) Cancer Diabetes Gout High cholesterol History of anal cancer History of edema HTN (hypertension) Non-smoker Port-A-Cath in place Home Medications amlodipine 10 mg PO DAILY 06/01/13 [History Last Taken 10/29/20 07:00] benazepril 20 mg PO DAILY 06/01/13 [History Last Taken 10/29/20 07:00] losartan 100 mg PO DAILY 06/01/13 [History Last Taken 10/29/20 07:00] metoprolol succinate 100 mg PO DAILY 06/01/13 [History Last Taken 01/23/20] simvastatin 40 mg PO DAILY 06/01/13 [History Last Taken 09/06/13 07:30] leuprolide (3 month) 22.5 mg (3 month) subcutaneous syringe 22.5 mg SC [id number] 12/22/18 [History Last Taken 01/07/20] metformin 500 mg PO DAILY 04/25/20 [History Last Taken 10/29/20 07:00] ciprofloxacin HCl [Cipro] 500 mg PO BID #6 tab 10/29/20 [Rx Last Taken Unknown] Allergy/AdvReac Type Severity Reaction Status Date / Time hydromorphone [From Dilaudid] AdvReac Other Verified 10/23/20 11:04 meperidine [From Demerol] AdvReac Nausea/Vom/ Verified 10/23/20 11:04 Diarrhea Surgical History (Updated 10/23/20 @ 11:12 by Leilani Berman) History of appendectomy History of back surgery History of cholecystectomy History of removal of Port-a-Cath Hx of cataract surgery Hx of colonoscopy Hx of cystoscopy Hx of cystoscopy Hx of cystoscopy Hx of cystoscopy (~01/23/20) Hx of cystoscopy (~05/28/20) Hx of dilation of urethra Social History (Updated 12/22/18 @ 17:20 by Ifeanyi MCCOY, PA) Smoking Status: Never smoker alcohol intake: never ROS Constitutional Constitutional: Denies chills, fever(s) or malaise Eyes Eyes: Denies blurry vision or change in vision ENT HEENT: Reports none Cardiovascular Cardiovascular: Denies chest pain or palpitations Respiratory/Chest Respiratory/Chest: Denies cough or shortness of breath with exertion Gastrointestinal Gastrointestinal: Denies abdominal pain, constipation or diarrhea Musculoskeletal Musculoskeletal: Denies back pain, joint stiffness or joint swelling Integumentary Integumentary: Denies dry skin, jaundice, lesions or rash Neurologic Neurologic: Denies confusion, syncope or weakness Psychiatric Psychiatric: Reports none; Denies anxiety or depression Endocrine Endocrinology: Denies excessive sweating, fatigue or flushing Hematologic/Lymphatic Hematologic/Lymphatic: Denies anemia, easy bleeding or easy bruising Vital Signs Vital Signs Vital Signs: 10/29/20 08:30 10/29/20 08:40 Temperature 97.3 F L Temperature Source Temporal Pulse Rate 72 Respiratory Rate 16 Respiratory Pattern Normal Blood Pressure 143/70 H Blood Pressure Mean 94 Blood Pressure Source Monitor Blood Pressure Position Semi-Fowlers Blood Pressure Location Left Arm Pulse Ox 99 Oxygen Delivery Method Room Air Weight Weight: 89.3 kg Body Mass Index (BMI) 28.2 Physical Exam Const alert and oriented x3 General Appearance: cooperative HEENT normocephalic, head/scalp atraumatic, EAC's normal and TM's normal bilaterally Eyes PERRL and EOMs intact bilaterally Pupil: sluggish Neck no lymphadenopathy, supple and no JVD General: trachea midline Lymph Lymphatic: no lymphadenopathy noted, lymphedema and lymphadenopathy Resp normal respiratory effort, normal air movement and clear to auscultation bilaterally Cardio regular rate, regular rhythm and peripheral pulses 2+ throughout GI soft to palpation, non-tender and non-distended Extremity normal capillary refill and no clubbing, cyanosis or edema General Extremity: no tenderness to palpation of joints or extremities Skin no rashes or lesions noted General Skin Exam: turgor normal Lesions: no lesions Rashes: no rashes Neuro CN's II-XII intact bilaterally Speech: speech normal Motor Exam: strength 5/5 throughout; Negative for general weakness Psych thought process normal, cooperative and affect normal Appearance: appropriate Results Lab / Micro Data Labs: Laboratory Results - last 24 hr 10/29/20 09:03 POC Glucose 140 H Assessment & Plan Assessment/Plan (1) Prostate cancer: (2) Bilateral hydronephrosis: (3) Ureteral obstruction: PLAN: Plan to proceed with cystoscopy bilateral stent change, change of Guthrie catheter, bilateral retrograde pyelograms for obstruction
--- NOTE | 2020-10-29 10:37 | PCM.DC ---
Discharge Instructions Diet Discharge Diet: No restrictions Activity Discharge Activity: Return to Normal Activity and May Not Drive (while taking narcotic pain medications.) Dressing / Incision Call your doctor if you observe: Fever of 101 or Higher Follow Up Care Please Follow Up With: Siddharth Navarro MD When: Call [phone] for an appointment, keep appt for next Leuprolide hormone therapy shot. Need to see you in 1 month to change lyman. Test Results: Test results from this visit will be discussed in further detail at your follow-up appointment, if applicable. Discharge Plan Admission Primary Reason for Your Visit: stent change Attending Provider: Siddharth Navarro Primary Care Provider: Rigo Izaguirre Discharge Orders/Prescriptions Prescriptions: New ciprofloxacin HCl [Cipro] 500 mg tablet 500 mg PO BID Qty: 6 RF: 0 Continued Eligard (3 month) 22.5 mg syringe 22.5 mg SC [id number] RF: 0 metoprolol succinate 100 MG tablet 100 mg PO DAILY RF: 0 amlodipine 5 MG tablet 10 mg PO DAILY RF: 0 simvastatin 20 MG tablet 40 mg PO DAILY RF: 0 benazepril 20 MG tablet 20 mg PO DAILY RF: 0 losartan 100 MG tablet 100 mg PO DAILY RF: 0 metformin 500 MG tablet 500 mg PO DAILY RF: 0 Referrals / Follow Up: Siddharth Navarro MD [STAFF PHYSICIAN] - Rigo Izaguirre MD [Primary Care Provider] - Disposition Discharge Orders: Discharge Patient (Routine); Ordered 10/29/20 Ordered By: Dr. Siddharth Navarro
[2020-10-29] MEDS: Lidocaine Jelly 2% 20 ML Syringe (URO-JET) 20 APPLIC (10:41)
--- NOTE | 2020-10-29 10:55 | PCM.OPRPT ---
Report of Operation Date of Procedure: 10/29/20 Pre-Operative Diagnosis: Bilateral ureteral obstruction history of prostate cancer Post-Operative Diagnosis: Same Surgery/Procedure Performed:: Cystoscopy, bilateral retrograde pyelogram, bilateral stent change, complicated Guthrie placement, interpretation of fluoroscopic images Description of Surgical Findings:: Patient was taken back to the operating room at the smooth induction of general anesthesia the penis and testicles were prepped and draped in usual sterile fashion, the existing 14 Guatemalan catheter was removed from the penis, I went into the bladder with a 21 Guatemalan rigid cystourethroscope Entire length of the urethra was clear he had some scar tissue around the sphincter area within the prostatic channel was able to get through this with the scope is very tight. I then reached the bladder and I grabbed the existing stent on the left side I used a grasper pulled out the meatus advance a wire through the stent and then over the wire advanced the Pollack catheter performed a retrograde pyelogram could see contrast going up to the kidney to contrast delineating the anatomy of the kidney. I then put a wire up in the left kidney I backloaded the scope over the wire and then over the wire advanced a stent it was 6 Guatemalan by 26 cm stent. Once the stent was a good position pulled the wire and the stent coiled in the kidney bladder good position and I drained the bladder I then went to to the right side grabbed the existing stent in the right side pulled out the meatus, advance a wire through the right stent and then advance a Pollack catheter up in the right side performed a retrograde pyelogram to see more hydronephrosis on the right side and a swollen right kidney I then advanced a wire up on the right side and then over the wire I placed a stent it was a 6 Guatemalan by 26 cm stent. Once stent was good position I pulled the wire in the kidney and the bladder and the stent coiled in the kidney bladder good position of then drained the bladder I then placed a new catheter there was quite a difficult Guthrie placement because of the scar tissue but it was a 16 Guatemalan catheter into the bladder and then I inflated the balloon with 10 cc cc of saline. Patient anesthetic was reversed he will see me back in 1 month for Guthrie change in the office and will continue with hormone deprivation therapy for his prostate cancer he will need another stent change in a few months. Surgeon: aaron Type of Anesthesia: General Drains: stent bilateral Admit VTE Documentation VTE Present on Admission: No VTE Mechan Device Prophylaxis: SCD's
== END 2020-10-29 12:30 | disposition home or self-care (01) ==
LOC: SDC 08:11 → AC 08:11
PROVIDERS: PCP Family Medicine; Referring Provider Urology; Visit Provider Urology
PROC: (CPT 52332; principal; 2020-10-29 10:05)
DX: N13.1 Hydronephrosis with ureteral stricture, not elsewhere classified (principal); I10 Essential (primary) hypertension; N39.3 Stress incontinence (female) (male); M81.8 Other osteoporosis without current pathological fracture; C79.89 Secondary malignant neoplasm of other specified sites; C61 Malignant neoplasm of prostate; N13.39 Other hydronephrosis; N35.011 Post-traumatic bulbous urethral stricture; R97.21 Rising PSA following treatment for malignant neoplasm of prostate; E11.9 Type 2 diabetes mellitus without complications; E78.00 Pure hypercholesterolemia, unspecified; Z85.048 Personal history of other malignant neoplasm of rectum, rectosigmoid junction, and anus; Z79.899 Other long term (current) drug therapy; Z79.84 Long term (current) use of oral hypoglycemic drugs
CPT/HCPCS: 52332; 76000; 82962; J7120; C1769; C2617; J0744

== ENCOUNTER → 2020-12-10 08:13 | Outpatient (CLI) | payer MEDICARE, OTHER, SELFPAY ==
[2020-05-28 10:37] VITALS: BMI 27.6
[2020-10-29 08:40] VITALS: BMI 28.2
--- NOTE | 2020-12-10 08:25 | BD_ITS ---
STUDY: DUAL ENERGY X-RAY ABSORPTIOMETRY / DXA REASON FOR EXAM: Male, 75 years old. M810. Hormone injection for prostate cancer. TECHNIQUE: Bone Mineral Density (BMD) measurements of lumbar spine and bilateral hips were obtained. COMPARISON: None. FINDINGS: Lumbar Spine (L1-L4): g/cm2 (1.302) / T-score (2.3) / Z-score (3.3) Findings are suggestive of normal bone density with a low fracture risk. Left Femur Total: g/cm2 (0.874) / T-score (-1.1) / Z-score (-0.1) Left Femoral Neck: g/cm2 (0.642) / T-score (-2.1) / Z-score (-0.7) Right Femur Total: g/cm2 (0.853) / T-score (-1.2) / Z-score (-0.2) Right Femoral Neck: g/cm2 (0.660) / T-score (-2.0) / Z-score (-0.5) BD/Dexa Bone Density Study IMPRESSION: The patient is considered osteopenic as outlined below according to World Steven Organization (WHO) criteria with a moderate fracture risk. Reference Information: The T-score is the number of standard deviations above or below the standard which is normal for young adults at their peak bone mineral density. The World Health Organization (WHO) interprets the T-scores as follows: Above -1 Normal bone density Between -1 and -2.5 Osteopenia Equal to / or below -2.5 Osteoporosis As a practical clinical guideline, osteopenia may be graded as follows: Mild -1 through -1.5 Moderate -1.6 through -2.0 Severe -2.1 through -2.4 The Z-score is the number of standard deviations above or below age-matched controls. A Z-score of less than -1.5 would be considered abnormal. References: 1. NIH Osteoporosis and Related Bone Diseases www osteo.org 2. International Society for Clinical Densitometry www iscd.org 3. National Osteoporosis Foundation www nof.org Electronically Signed: Matthew Umana MD at 20:14 EDT , Service support ,
== END ==
PROVIDERS: PCP Family Medicine; Referring Provider Nurse Practitioner Adult Health; Visit Provider Nurse Practitioner Adult Health
DX: M81.8 Other osteoporosis without current pathological fracture (principal); M81.0 Age-related osteoporosis without current pathological fracture
CPT/HCPCS: 77080

== ENCOUNTER → 2020-12-15 10:32 | Outpatient (CLI) | payer MEDICARE, OTHER, SELFPAY ==
[2020-10-29 08:40] VITALS: BMI 28.2
== END ==
PROVIDERS: PCP Family Medicine; Visit Provider Family Medicine
DX: R19.7 Diarrhea, unspecified (principal)
CPT/HCPCS: 83630; 87177; 87209; 87493; 87506

== ENCOUNTER → 2021-01-15 09:55 | Outpatient (CLI) | payer MEDICARE, OTHER, SELFPAY ==
[2021-01-15 12:30] LABS: PSA,Total- Diagnostic 1.18 ng/mL (0.0-4.0)
== END ==
PROVIDERS: PCP Family Medicine; Referring Provider Urology; Visit Provider Urology
DX: C61 Malignant neoplasm of prostate (principal); R97.20 Elevated prostate specific antigen [PSA]
CPT/HCPCS: 36415; 84153

== ENCOUNTER → 2021-03-19 10:57 | Outpatient (CLI) | payer MEDICARE, OTHER, SELFPAY ==
[2021-03-19 12:12] LABS: Absolute Lymphocyte Count 1.36 X10^3/uL (0.83-4.51); Absolute Neutrophil Count 5.8 X10^3/uL (2.0-7.7); Basophil# 0.06 X10^3/uL; Basophil% 0.7 % (0-1); Eosinophils% 3.6 % (0-5); Hematocrit 36.9 % (40-54); Hemoglobin 12.1 g/dL (13.0-16.5); Lymphocyte # 1.36 X10^3/ul (0.83-4.51); Lymphocyte % 16.2 % (19-41); Mean Corp Hgb Conc 32.8 g/dL (32-36); Mean Corpuscular Hgb 26.5 pg (27.0-32.0); Mean Corpuscular Volume 80.9 fL (80-94); Mean Platelet Vol. 9.7 fl (6.2-12.0); Monocyte% 8.3 % (0-10); NRBC Flagged by Analyzer 0 % (0-5); Neutrophil # 5.83 X10^3/uL (2.7-7.7); Neutrophil % 69.3 % (47-70); Platelet Count 328 K/mm3 (150-450); RBC Distribution Width CV 14.7 % (11.6-14.6); RBC Distribution Width SD 43.1 fl (35.1-43.9); Red Blood Count 4.56 M/mm3 (4.6-6.2); White Blood Count 8.4 K/mm3 (4.4-11.0)
[2021-03-19 12:55] LABS: AST(SGOT) 21 U/L (15-37); Alanine Aminotransfer ALT/SGPT 41 U/L (16-61); Albumin, Serum 3.4 g/dL (3.2-5.0); Alkaline Phosphatase 93 U/L (45-117); Anion Gap 7 (5-15); BUN 29 mg/dL (7-18); BUN/Creat Ratio 19.1 RATIO (10-20); Bilirubin, Direct 0.11 mg/dL (0.00-0.30); Calcium,Total 9.9 mg/dL (8.5-10.1); Chloride 105 mmol/L (98-107); Creatinine, Serum 1.52 mg/dL (0.70-1.30); EST Glomerular Filtration Rate 47 mL/min (>60); Est Glom Filt Rate - Afr Amer 57 mL/min (>60); Globulin 5.2 g/dL (2.2-4.2); Glucose 150 mg/dL (74-106); Potassium 4.2 mmol/L (3.5-5.1); Protein, Total 8.6 g/dL (6.4-8.2); Sodium Level 139 mmol/L (136-145)
== END ==
PROVIDERS: PCP Family Medicine; Referring Provider Family Medicine; Visit Provider Family Medicine
DX: E11.9 Type 2 diabetes mellitus without complications (principal); R31.9 Hematuria, unspecified
CPT/HCPCS: 36415; 80048; 80076; 85025

== ENCOUNTER → 2021-03-27 07:32 | Outpatient (CLI) | payer MEDICARE, OTHER, SELFPAY | PROVIDERS: PCP Family Medicine; Referring Provider Family Medicine; Visit Provider Family Medicine | DX: E11.9 Type 2 diabetes mellitus without complications (principal); R31.9 Hematuria, unspecified ==

== ENCOUNTER → 2021-04-06 10:14 | Outpatient (CLI) | payer MEDICARE, OTHER, SELFPAY ==
[2021-04-06 12:32] LABS: PSA,Total- Diagnostic 1.77 ng/mL (0.0-4.0)
== END ==
PROVIDERS: PCP Family Medicine; Referring Provider Urology; Visit Provider Urology
DX: C61 Malignant neoplasm of prostate (principal)
CPT/HCPCS: 36415; 84153

== ENCOUNTER → 2021-04-21 08:17 | Outpatient (CLI) | payer MEDICARE, OTHER, SELFPAY ==
[2021-04-21 10:39] LABS: Cholesterol 135 mg/dL (200); High Density Lipoprotein 33 mg/dL; Triglycerides 146 mg/dL; Very Low Density Lipoprotein 29 mg/dL (5-40)
== END ==
PROVIDERS: PCP Family Medicine; Referring Provider Family Medicine; Visit Provider Family Medicine
DX: E11.9 Type 2 diabetes mellitus without complications (principal)
CPT/HCPCS: 36415; 80061

== ENCOUNTER 2021-05-29 08:44 | Day surgery (SDC) | payer MEDICARE, OTHER, SELFPAY ==
[2021-05-29 09:37] VITALS: BP 153/78; PULSE 68; RESP 16; TEMP 36.4; O2SAT 100; BMI 26.9
[2021-05-29] MEDS: Lactated Ringers 1,000 ML 15 ML IV (09:56)
[2021-05-29 10:05] LABS: Bedside Glucose 122 mg/dL (70-110)
[2021-05-29] MEDS: Lidocaine Jelly 2% 20 ML Syringe (URO-JET) 1 APPLIC (11:18)
--- NOTE | 2021-05-29 11:39 | HP.PCM_ITS ---
HPI - General HPI Narrative VILMA SAM, is a 76 M who presents to change his bilateral stents and also put a new Guthrie catheter in place he has a history of rectal and prostate cancer treated with radiation has significant scar tissue in the prostate and in the ureters causing obstruction and in order to keep his kidneys draining and wor sudha he has bilateral stents and he needs a Guthrie catheter to get severe he urethral strictures and the prostate channel. [facility] Medical History (Updated 05/22/21 @ 13:50 by Chloe Tan) Cancer COVID Diabetes Gout High cholesterol History of anal cancer History of Clostridium difficile infection History of edema HTN (hypertension) Indwelling urethral catheter present Non-smoker Port-A-Cath in place Home Medications amlodipine 10 mg PO DAILY 06/01/13 [History Last Taken 05/29/21 07:30] benazepril 20 mg PO DAILY 06/01/13 [History Last Taken 05/29/21 07:30] losartan 100 mg PO DAILY 06/01/13 [History Last Taken 05/29/21 07:30] metoprolol succinate 100 mg PO DAILY 06/01/13 [History Last Taken 05/29/21 07:30] simvastatin 40 mg PO DAILY 06/01/13 [History Last Taken 09/06/13 07:30] leuprolide (3 month) 22.5 mg (3 month) subcutaneous syringe 22.5 mg SC [id number] 12/22/18 [History Last Taken 01/07/20] metformin 500 mg PO DAILY 04/25/20 [History Last Taken 05/29/21 07:30] sulfamethoxazole-trimethoprim [Bactrim DS] 1 tab PO BID #10 tab 05/29/21 [Rx Last Taken Unknown] Allergy/AdvReac Type Severity Reaction Status Date / Time hydromorphone [From Dilaudid] AdvReac Other Verified 05/22/21 13:34 meperidine [From Demerol] AdvReac Nausea/Vom/ Verified 05/22/21 13:34 Diarrhea Surgical History (Updated 10/23/20 @ 11:12 by Leilani Berman) History of appendectomy History of back surgery History of cholecystectomy History of removal of Port-a-Cath Hx of cataract surgery Hx of colonoscopy Hx of cystoscopy Hx of cystoscopy Hx of cystoscopy Hx of cystoscopy (~01/23/20) Hx of cystoscopy (~05/28/20) Hx of dilation of urethra Social History (Updated 12/22/18 @ 17:20 by Ifeanyi MCCOY, PA) Smoking Status: Never smoker alcohol intake: never Vital Signs Vital Signs Vital Signs: 05/29/21 09:37 Temperature 97.5 F L Temperature Source Temporal Pulse Rate 68 Respiratory Rate 16 Respiratory Pattern Normal Blood Pressure 153/78 H Blood Pressure Mean 103 Blood Pressure Source Monitor Blood Pressure Position Semi-Fowlers Blood Pressure Location Right Arm Pulse Ox 100 Oxygen Delivery Method Room Air Weight Weight: 85 kg Body Mass Index (BMI) 26.9 Results Lab / Micro Data Labs: Laboratory Results - last 24 hr 05/29/21 09:30: POC Glucose 122 H
--- NOTE | 2021-05-29 11:39 | PCM.DC ---
Discharge Instructions Diet Discharge Diet: No restrictions Activity Discharge Activity: Return to Normal Activity and May Not Drive (while taking narcotic pain medications.) Dressing / Incision Call your doctor if you observe: Fever of 101 or Higher Follow Up Care Please Follow Up With: Siddharth Navarro MD When: 1 month for next cath change Test Results: Test results from this visit will be discussed in further detail at your follow-up appointment, if applicable. Discharge Plan Admission Primary Reason for Your Visit: lyman change and stent changes Attending Provider: Siddharth Navarro Primary Care Provider: Rigo Izaguirre Discharge Orders/Prescriptions Prescriptions: New sulfamethoxazole-trimethoprim [Bactrim DS] 800-160 mg tablet 1 tab PO BID Qty: 10 RF: 0 No Action Eligard (3 month) 22.5 mg syringe 22.5 mg SC [id number] RF: 0 metoprolol succinate 100 MG tablet 100 mg PO DAILY RF: 0 amlodipine 5 MG tablet 10 mg PO DAILY RF: 0 simvastatin 20 MG tablet 40 mg PO DAILY RF: 0 benazepril 20 MG tablet 20 mg PO DAILY RF: 0 losartan 100 MG tablet 100 mg PO DAILY RF: 0 metformin 500 MG tablet 500 mg PO DAILY RF: 0 Referrals / Follow Up: Siddharth Navarro MD [STAFF PHYSICIAN] - Rigo Izaguirre MD [Primary Care Provider] - Disposition Disposition (needs filled in before D/C Order can be placed): Home, Self Care
--- NOTE | 2021-05-29 12:12 | PCM.OPRPT ---
Report of Operation Date of Procedure: 05/29/21 Pre-Operative Diagnosis: History of rectal cancer and prostate cancer status post radiation with development of severe stricture in the prostatic urethra and also bilateral ureteral strictures managed with bilateral stents comes in for stent change Post-Operative Diagnosis: The same Surgery/Procedure Performed:: Cystoscopy, left retrograde pyelogram and left stent change interpretation fluoroscopic images, right retrograde pyelogram and right stent change, complicated Lyman placement Description of Surgical Findings:: This is a 76-year-old male who has a history of prostate cancer was treated with radiation therapy long time ago he has developed severe strictures in the prostatic urethra and in the distal ureters causing chronic obstruction been managed with stents and a Lyman catheter he now comes into the operating room for stent changes its been several months since the stents have been changed and they are due for stent change. Patient was taken back to the operating room at the [facility] local anesthesia he was placed in dorsolithotomy position. The 20 Cameroonian catheter was removed from the bladder then went into the bladder with a 21 Cameroonian rigid cystourethroscope the entire length of the urethra was clear the sphincter was intact inside the prostate very scarred down hard prostate could feel resistance with the scope coming through the prostate channel I then went into the bladder and identified the left ureteral orifice and the left stent I grabbed the stent pulled out to the meatus try to thread a wire through the stent but it so encrusted it was not possible so ended up pulling out the stent on the left side I then went back into the left side but it was the angle to get to the ureteral orifice was so difficult I was not able to get to it so I went to the right side grabbed the stent on the right side pulled out the meatus was able to get a wire through the stent in the right side and over the right side and I backloaded the cystoscope put a Pollick catheter up in the kidney david and did retrograde pyelogram interpreted the fluoroscopic images for this procedure I then put a wire up into the kidney and over the wire I placed a new stent 6 Cameroonian by 26 cm stent on the right side I then went back to the left side this to the side is having difficulties on the angle between the bladder neck and the ureteral orifice was quite acute and I had to really torque the prostate over to be able to see the ureteral orifice was very inflamed was extremely difficult try to angle straight angle wire and then I got a 0.0 2 5 angled tip wire I was able to then get the tip of the wire going to the ureter ureteral orifice followed this up with a Pollick catheter and there was able to thread the wire up into the kidney I then advanced the Pollack catheter over the wire and then exchanged for the 0.038 Glidewire and then backloaded the scope over that wire and then placed a stent on the left side again it was a very difficult stent placement on the left side because of the acute angle scarred prostate had to push really hard to get the angle to see the ureteral orifice. Once the stent was changed in the left side then had some difficulty getting catheter and use a 20 Cameroonian catheter had been guided in and then after the catheter was placed then 8 cc was put into the balloon we got urine from the catheter and sent for culture and he was given a few days of antibiotics see him back in a month for Lyman change in the office. Surgeon: aaron Type of Anesthesia: MAC and Topical Anesth Drains: stent 6 x 26 b/l and lyman 20 fr Admit VTE Documentation VTE Present on Admission: No VTE Mechan Device Prophylaxis: SCD's VTE Pharm Prophylaxis ordered?: No
[2021-05-29 12:25] VITALS: BP 122/68; BP 153/78; PULSE 68; RESP 16; TEMP 35.6; O2SAT 98
[2021-05-29 12:30] VITALS: BP 104/70; BP 153/78; PULSE 68; RESP 16; O2SAT 98
--- NOTE | 2021-05-29 12:34 | SUR.PHASEI ---
Guthrie Catheter to leg bag in OR. Back to patient's baseline.
[2021-05-29 12:35] VITALS: BP 122/67; BP 153/78; PULSE 66; RESP 16; O2SAT 97
[2021-05-29 12:40] VITALS: BP 127/73; BP 153/78; PULSE 68; RESP 16; TEMP 35.6; O2SAT 98
[2021-05-29 13:00] VITALS: BP 153/78
== END 2021-05-29 23:59 | disposition home or self-care (01) ==
LOC: SDC 08:45 → AC 08:48
PROVIDERS: PCP Family Medicine; Referring Provider Urology; Visit Provider Urology
PROC: (CPT 52332; principal; 2021-05-29 10:40)
DX: Z46.6 Encounter for fitting and adjustment of urinary device (principal); E11.9 Type 2 diabetes mellitus without complications; N35.011 Post-traumatic bulbous urethral stricture; N13.39 Other hydronephrosis; N40.1 Benign prostatic hyperplasia with lower urinary tract symptoms; R33.8 Other retention of urine; I10 Essential (primary) hypertension; R97.20 Elevated prostate specific antigen [PSA]; E78.00 Pure hypercholesterolemia, unspecified; M10.9 Gout, unspecified; Z79.84 Long term (current) use of oral hypoglycemic drugs; Z79.899 Other long term (current) drug therapy; Z85.048 Personal history of other malignant neoplasm of rectum, rectosigmoid junction, and anus; Z86.16 Personal history of COVID-19; Z85.46 Personal history of malignant neoplasm of prostate
CPT/HCPCS: 52332; 51703; 00910; 76000; 82962; 87077; 87086; 87088; 87186; J7120; C1769; C2617

== ENCOUNTER 2021-07-31 14:18 | Outpatient (CLI) | payer MEDICARE, OTHER, SELFPAY ==
[2021-07-31 18:17] LABS: PSA,Total- Diagnostic 1.79 ng/mL (0.0-4.0)
== END 2021-07-31 23:59 | disposition home or self-care (01) ==
LOC: MFPLAB 14:28
PROVIDERS: PCP Family Medicine; Referring Provider Family Medicine; Visit Provider Urology
DX: C61 Malignant neoplasm of prostate (principal)
CPT/HCPCS: 36415; 84153

== ENCOUNTER 2021-08-10 16:48 | Outpatient (CLI) | payer MEDICARE, OTHER, SELFPAY | END 2021-08-10 23:59 | disposition home or self-care (01) | LOC: LABSPEC 16:50 | PROVIDERS: PCP Family Medicine; Visit Provider Urology | DX: R31.9 Hematuria, unspecified (principal) | CPT/HCPCS: 87077; 87086; 87088; 87186 ==

== ENCOUNTER → 2021-09-21 | Outpatient (CLI) | payer MEDICARE, OTHER, SELFPAY ==
[2021-09-21 10:32] LABS: Anion Gap 7 (5-15); BUN 26 mg/dL (7-18); BUN/Creat Ratio 17.4 RATIO (10-20); Calcium,Total 9.6 mg/dL (8.5-10.1); Chloride 110 mmol/L (98-107); Cholesterol 218 mg/dL (200); Creatinine, Serum 1.49 mg/dL (0.70-1.30); EST Glomerular Filtration Rate 48 mL/min (>60); Est Glom Filt Rate - Afr Amer 59 mL/min (>60); Glucose 136 mg/dL (74-106); High Density Lipoprotein 42 mg/dL; Potassium 4.7 mmol/L (3.5-5.1); Sodium Level 142 mmol/L (136-145); Triglycerides 413 mg/dL
== END | disposition home or self-care (01) ==
LOC: MFPLAB 08:35
PROVIDERS: PCP Family Medicine; Referring Provider Family Medicine; Visit Provider Family Medicine
DX: E11.9 Type 2 diabetes mellitus without complications (principal)
CPT/HCPCS: 36415; 80048; 80061

== ENCOUNTER → 2021-09-22 | Outpatient (CLI) | payer MEDICARE, OTHER, SELFPAY ==
[2021-09-22 14:29] LABS: Microalbumin:Creatinine Ratio 730.5 mg/g CRE (<30 mg/g CRE)
== END | disposition home or self-care (01) ==
LOC: MFPLAB 11:02 → LABSPEC 11:03
PROVIDERS: PCP Family Medicine; Referring Provider Family Medicine; Visit Provider Family Medicine
DX: E11.9 Type 2 diabetes mellitus without complications (principal)
CPT/HCPCS: 82043; 82570

== ENCOUNTER → 2021-10-05 | Outpatient (CLI) | payer MEDICARE, OTHER, SELFPAY ==
--- NOTE | 2021-10-05 15:27 | RAD_ITS ---
STUDY: XR Knee Complete 4 Views or More 10/05/2021 4:24 PM REASON FOR EXAM: Male, 76 years old. PAIN TECHNIQUE: XR Knee Complete 4 Views or More LEFT COMPARISON: None FINDINGS: Normal visualized distal femur. Normal visualized proximal tibia and fibula. Normal proximal tibiofibular articulation. There are atherosclerotic vascular calcifications. Normal medial femorotibial compartment. Normal lateral femorotibial compartment. Normal patellofemoral articulation. The soft tissue structures are unremarkable. RAD/Knee 4 or More Views IMPRESSION: There are no acute findings. Electronically Signed: Yao Perez MD at 16:25 EDT ,
== END | disposition home or self-care (01) ==
LOC: MTRAD 15:26
PROVIDERS: PCP Family Medicine; Referring Provider Family Medicine; Visit Provider Family Medicine
DX: M25.562 Pain in left knee (principal)
CPT/HCPCS: 73564

== ENCOUNTER → 2021-10-30 | Outpatient (CLI) | payer MEDICARE, OTHER, SELFPAY ==
--- NOTE | 2021-10-30 14:21 | ART_ITS ---
Reason For Study: PVD Procedure A bilateral lower extremity continuous wave Doppler with analog waveform analysis,segmental pressures,and ankle brachial indexes without exercise. Unable to exercise due to patient's inability to balance and walk on treadmill. Left Segmental Pressures Left brachial= 180mmHg. Left posterior tibial artery = 231mmHg. Left dorsalis pedis artery = 228mmHg. Left digit = 185 mmHg. The left dorsalis pedis waveforms are triphasic. The left posterior tibial artery waveforms are triphasic. Right Segmental Pressures Right brachial= 183mmHg. Right posterior tibial artery = 239mmHg. Right dorsalis pedis artery = 224mmHg. Right digit = 170 mmHg. The right dorsalis pedis waveforms are triphasic. The right posterior tibial artery waveforms are triphasic. Indices The right ankle brachial index by the dorsalis pedis is 1.22. The right ankle brachial index by the posterior tibial artery is 1.31. The right digital-brachial index is 0.93. The left ankle brachial index by the dorsalis pedis is 1.25. The left ankle brachial index by the posterior tibial artery is 1.26. The left digital-brachial index is 1.01. VL/Lower Ext Art Exam w/ Exercise Interpretation Summary Triphasic Doppler waveforms are noted at ankle level bilaterally. Pulse-volume recordings appear satisfactory bilaterally. Resting ankle-brachial indices are normal bilaterally . Digital-brachial indices are normal bilaterally. There is no evidence of significant arterial occlusive disease in the lower ext remities bilaterally. Ordering Physician: Rigo Izaguirre Referring Physician: RIGO IZAGUIRRE MD Performed By: GENOVEVA SONI
== END | disposition home or self-care (01) ==
LOC: CVS 14:00
PROVIDERS: PCP Family Medicine; Visit Provider Family Medicine
DX: I73.9 Peripheral vascular disease, unspecified (principal)
CPT/HCPCS: 93924

== ENCOUNTER → 2021-11-09 | Outpatient (CLI) | payer MEDICARE, OTHER, SELFPAY ==
[2021-11-09 13:03] LABS: PSA,Total- Diagnostic 1.82 ng/mL (0.0-4.0)
== END | disposition home or self-care (01) ==
LOC: MFPLAB 09:32
PROVIDERS: PCP Family Medicine; Visit Provider Urology
DX: C61 Malignant neoplasm of prostate (principal)
CPT/HCPCS: 36415; 84153

== ENCOUNTER 2021-12-23 08:17 | Day surgery (SDC) | payer MEDICARE, OTHER, SELFPAY ==
[2021-12-23] VITALS (7 sets, daily range): BP systolic 119–176; BP diastolic 60–85; PULSE 67–78; RESP 16; TEMP 36.2–36.7; O2SAT 96–99; BMI 29.0
[2021-12-23] MEDS: Lactated Ringers 1,000 ML 15 ML IV (08:45)
[2021-12-23] MEDS: Cefazolin 2 GM in 0.9% Normal Saline 100 ML IV (09:15)
[2021-12-23 09:25] LABS: Bedside Glucose 144 mg/dL (74-106)
[2021-12-23] MEDS: Lidocaine Jelly 2% 20 ML Syringe (URO-JET) 1 APPLIC (09:40)
--- NOTE | 2021-12-23 10:01 | DCINST_ITS ---
Discharge Instructions Diet Discharge Diet: No restrictions and Light diet - advance as tolerated Follow Up Care Please Follow Up With: Siddharth Navarro MD When: keep appt Test Results: Test results from this visit will be discussed in further detail at your follow- up appointment, if applicable. Discharge Plan Admission Attending Provider: Siddharth Navarro Primary Care Provider: Rigo Izaguirre Discharge Orders/Prescriptions Prescriptions: No Action Eligard (3 month) 22.5 mg syringe 22.5 mg SC [id number] metoprolol succinate 100 MG tablet 100 mg PO DAILY Label Comments: BP amlodipine 5 MG tablet 10 mg PO DAILY Label Comments: BP benazepril [Lotensin] 20 MG tablet 20 mg PO DAILY Label Comments: BP losartan 100 MG tablet 50 mg PO DAILY Label Comments: BP metformin 500 MG tablet 500 mg PO DAILY rosuvastatin 5 mg tablet 5 mg PO DAILY Referrals / Follow Up: Rigo Izaguirre MD [Primary Care Provider] - Disposition Disposition (needs filled in before D/C Order can be placed): Home, Self Care
--- NOTE | 2021-12-23 10:01 | PCM.HP.STD ---
HPI - General HPI Narrative VILMA SAM, is a 76 M who presents for bilateral stent change and history of prostate cancer with radiation scar down ureters bilaterally were also going to change his catheter today Survanta cystoscopy bilateral stent change. PFSH Medical History Cancer Chronic pain COVID Diabetes Gout High cholesterol History of anal cancer History of Clostridium difficile infection HTN (hypertension) Indwelling urethral catheter present Non-smoker Home Medications amlodipine 5 mg tablet 10 mg PO DAILY bp 06/01/13 [History Last Taken 12/23/21] benazepril 20 mg tablet (Lotensin) 20 mg PO DAILY bp 06/01/13 [History Last Taken 12/23/21] losartan 100 mg tablet 50 mg PO DAILY bp 06/01/13 [History Last Taken 12/23/21] metoprolol succinate 100 mg tablet,extended release 24 hr 100 mg PO DAILY bp 06/01/13 [History Last Taken 12/23/21] leuprolide (3 month) 22.5 mg (3 month) subcutaneous syringe (I Love QC) 22.5 mg subcut [id number] PROSTATE CANCER 12/22/18 [History Last Taken 01/07/20] metformin 500 mg tablet,extended release 24 hr 500 mg PO DAILY 04/25/20 [History Last Taken 05/29/21 07:30] rosuvastatin 5 mg tablet 5 mg PO DAILY 12/16/21 [History Last Taken Unknown] Allergy/AdvReac Type Severity Reaction Status Date / Time hydromorphone [From Dilaudid] AdvReac Other Verified 12/23/21 08:36 meperidine [From Demerol] AdvReac Nausea/Vom/ Verified 12/23/21 08:36 Diarrhea Surgical History (Updated 10/23/20 @ 11:12 by Leilani Berman) History of appendectomy History of back surgery History of cholecystectomy History of removal of Port-a-Cath Hx of cataract surgery Hx of colonoscopy Hx of cystoscopy Hx of cystoscopy Hx of cystoscopy Hx of cystoscopy (~01/23/20) Hx of cystoscopy (~05/28/20) Hx of dilation of urethra Social History (Updated 12/22/18 @ 17:20 by Ifeanyi MCCOY, PA) Smoking Status: Never smoker alcohol intake: never Vital Signs Vital Signs Vital Signs: 12/23/21 08:39 12/23/21 08:43 Temperature 97.4 F L Temperature Source Temporal Pulse Rate 78 Respiratory Rate 16 Respiratory Pattern Normal Blood Pressure 176/85 H Blood Pressure Mean 115 Blood Pressure Source Monitor Blood Pressure Position Semi-Fowlers Blood Pressure Location Left Arm Pulse Ox 98 Oxygen Delivery Method Room Air Weight Weight: 89 kg Body Mass Index (BMI) 29.0 Results Lab / Micro Data Labs: Laboratory Results - last 24 hr 12/23/21 08:38: POC Glucose 144 H
--- NOTE | 2021-12-23 10:02 | OP.PCM_ITS ---
Report of Operation Date of Procedure: 12/23/21 Pre-Operative Diagnosis: Bilateral ureteral obstruction chronic urethral strict ures Post-Operative Diagnosis: Same history of radiation for prostate cancer Surgery/Procedure Performed:: Cystoscopy bilateral stent change retrograde pyelogram interpretation fluoroscopic images and new Guthrie placement Description of Surgical Findings:: 76-year-old gentleman who unfortunately has scarred down ureters bilaterally and scarred down prostate from the history of radiation Prostate cancer that was treated with primary radiation therapy has recurrence of cancer he is on hormone therapy because of this and keep his kidneys open he is required bilateral stents on both sides explained to the patient that we need to change his stents every few months because the stents get encrusted and stop working so it is time now to change his stents again at the same time today working also placing a Guthrie catheter in his bladder he has a chronic stricture in the prostatic urethra that keeps going down 76-year-old male taken back to the operating room at the [facility] [place] of general anesthesia he was placed in dorsolithotomy position. The Guthrie catheter was removed the penis and testicles were prepped and draped in usual sterile fashion when of the bladder with a 21 Barbadian rigid cystourethroscope the entire length the urethra was okay got through the sphincter okay the prostate was slightly enlarged very difficult prostate to get through with the scope very rigid and hard was able to get to the bladder I then grabbed the existing stent from the left side pulled out to the meatus with a grasper put a wire up but then contrast into the kidney saw the anatomy then put a wire up and coiled in the kidney and then over the wire place a stent on the left side, I then went to the right side grabbed the existing stent on the right side pulled out the meatus advance a wire up on the right side and then once the wire was in place then backloaded the stent up on the right side and then pulled the wire and the stent coiled in the kidney bladder good position. Once both stents were in good position I did not drain the bladder put a new catheter in the bladder and the patient acetic was reversed taken back to PACU in good condition he will follow- up as planned for Guthrie change in the office in about a month and he will continue with hormone therapy as prescribed in the office. Surgeon: Siddharth Navarro Type of Anesthesia: MAC and Topical Anesth Drains: 26 x 6 Barbadian stents bilateral
== END 2021-12-23 10:58 | disposition home or self-care (01) ==
LOC: SDC 08:19 → AC 08:19
PROVIDERS: PCP Family Medicine; Visit Provider Urology
PROC: (CPT 52332; principal; 2021-12-23 10:50)
DX: N13.5 Crossing vessel and stricture of ureter without hydronephrosis (principal); C61 Malignant neoplasm of prostate; E11.9 Type 2 diabetes mellitus without complications; N35.011 Post-traumatic bulbous urethral stricture; E78.00 Pure hypercholesterolemia, unspecified; I10 Essential (primary) hypertension; G89.29 Other chronic pain; Z79.84 Long term (current) use of oral hypoglycemic drugs; Z79.899 Other long term (current) drug therapy; Z92.3 Personal history of irradiation; Z86.16 Personal history of COVID-19
CPT/HCPCS: 52332; 00910; 76000; 82962; J7120; C1769; J2405

== ENCOUNTER → 2022-01-11 | Outpatient (CLI) | payer MEDICARE, OTHER, SELFPAY ==
--- NOTE | 2022-01-11 13:45 | NEURO ---
NCS and/or EMG Patient Report Ordering Doctor: Rigo Izaguirre DATE OF SERVICE: 01/11/22 Indication: Bilateral lower extremity numbness and tingling over many years. More recently he has developed severe left knee pain. History of diabetes and prostate cancer status post chemotherapy. Please note, the study was ordered for the bilateral lower extremities, however, the patient declined testing of the right side. Findings: Nerve conduction studies were performed in the left lower extremity. The right peroneal motor study recording the extensor digitorum brevis showed a markedly reduced amplitude, normal distal latency and slowed conduction velocity. No conduction block or focal slowing was present across the fibular neck. The right tibial motor study recording the abductor hallucis brevis showed a markedly reduced amplitude, normal distal latency and slowed conduction velocity. The left sural sensory response was absent. The left superficial peroneal sensory response was absent. The left medial plantar response was absent. The left radial sensory response showed a reduced amplitude. Needle EMG left lower extremity muscles was performed. The lumbar paraspinal muscles were not sampled due to the patient's history of back surgery. Active denervation was present in a length-dependent fashion. Motor units were large amplitude and long duration with reduced recruitment in distal muscles. Impression: This is a markedly abnormal study. There is electrophysiologic evidence consistent with a generalized, axonal, active and chronic sensorimotor peripheral neuropathy. There was no clear evidence of an active, superimposed lumbosacral radiculopathy. Tayo Lang D.O. Multi Select Codes Neurology Neurology Interp Codes: 08031-84 Musc test done w/n test comp (interp) and 03189-15 Nrv cndj tst 5-6 studies (interp)
== END | disposition home or self-care (01) ==
PROVIDERS: PCP Family Medicine; Referring Provider Family Medicine; Visit Provider Family Medicine
DX: I73.9 Peripheral vascular disease, unspecified (principal); R20.0 Anesthesia of skin
CPT/HCPCS: 95886; 95909

== ENCOUNTER → 2022-02-15 | Outpatient (CLI) | payer MEDICARE, OTHER, SELFPAY ==
[2022-02-15 10:56] LABS: PSA,Total- Diagnostic 2.72 ng/mL (0.0-4.0)
== END | disposition home or self-care (01) ==
LOC: MFPLAB 09:20
PROVIDERS: PCP Family Medicine; Visit Provider Urology
DX: C61 Malignant neoplasm of prostate (principal)
CPT/HCPCS: 36415; 84153

== ENCOUNTER → 2022-03-01 | Outpatient (CLI) | payer MEDICARE, OTHER, SELFPAY | END | disposition home or self-care (01) | LOC: LABSPEC 16:44 | PROVIDERS: PCP Family Medicine; Visit Provider Urology | DX: N30.01 Acute cystitis with hematuria (principal) | CPT/HCPCS: 87077; 87086; 87088; 87186 ==

== ENCOUNTER → 2022-03-24 | Outpatient (CLI) | payer MEDICARE, OTHER, SELFPAY ==
--- NOTE | 2022-03-24 07:57 | MRI_ITS ---
STUDY: MRI LEFT KNEE REASON FOR EXAM: Male, 77 years old. Left knee pain. TECHNIQUE: Standardized fat and water weighted pulse sequences were obtained in all 3 orthogonal planes. COMPARISON: Left knee x-rays dated October 05, 2021. FINDINGS: Partial thickness radial tear of the posterior horn of the medial meniscus adjacent to the meniscal root (coronal series 6 images 10-13). Mild thinning of the articular cartilage of the medial femorotibial compartment (coronal series 6 images 10-18). Normal medial femoral condyle and tibial plateau. Normal medial collateral ligamentous complex (MCL). Normal distal semimembranosus, gracilis and semitendinosus tendons. Normal lateral meniscus. Mild thinning of the articular cartilage of the lateral femorotibial compartment (coronal series 6 images 10-17). Normal lateral femoral condyle and tibial plateau. Normal proximal tibiofibular articulation. Normal lateral collateral (fibular) ligament. Normal popliteus tendon. Normal biceps femoris tendon. Normal anterior cruciate ligament (ACL). Normal posterior cruciate ligament (PCL). Normal congruent patellofemoral articulation. Moderate thinning of the articular cartilage of the patellofemoral compartment with grade III chondromalacia of the lateral patellar facet (axial series 2 images 8-14). Normal medial and lateral patellar retinaculum. Normal quadriceps tendon. Normal patellar tendon. Normal Hoffa''s fat pad. Small joint effusion (axial series 2 image 8). Prepatellar subcutaneous soft tissue edema (sagittal series 4 image 12). The otherwise visualized osseous structures are unremarkable. MRI/Lower Ext Joint Only (Routine) IMPRESSION: Partial thickness radial tear of the posterior horn of the medial meniscus adjacent to the meniscal root. Mild thinning of the articular cartilage of the medial and lateral femorotibial compartments. Moderate thinning of the articular cartilage of the patellofemoral compartment. 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 Prepatellar subcutaneous soft tissue edema. Small joint effusion. Electronically Signed: Magno Spivey, at 10:11 EST ,
== END | disposition home or self-care (01) ==
LOC: MRI 07:45
PROVIDERS: PCP Family Medicine; Visit Provider Physician Assistant Surgical
DX: M17.12 Unilateral primary osteoarthritis, left knee (principal); S83.8X2D Sprain of other specified parts of left knee, subsequent encounter
CPT/HCPCS: 73721

== ENCOUNTER → 2022-03-31 | Outpatient (CLI) | payer MEDICARE, OTHER, SELFPAY ==
[2022-03-31 10:50] LABS: Anion Gap 9 (5-15); BUN 49 mg/dL (7-18); Calcium,Total 9.2 mg/dL (8.5-10.1); Chloride 107 mmol/L (98-107); Cholesterol 214 mg/dL (200); Creatinine, Serum 1.75 mg/dL (0.70-1.30); EST Glomerular Filtration Rate 40 mL/min (>60); Est Glom Filt Rate - Afr Amer 49 mL/min (>60); Glucose 192 mg/dL (74-106); High Density Lipoprotein 44 mg/dL; Potassium 4.4 mmol/L (3.5-5.1); Sodium Level 136 mmol/L (136-145); Triglycerides 263 mg/dL; Very Low Density Lipoprotein 53 mg/dL (5-40)
== END | disposition home or self-care (01) ==
LOC: MFPLAB 09:45
PROVIDERS: PCP Family Medicine; Referring Provider Family Medicine; Visit Provider Family Medicine
DX: E11.9 Type 2 diabetes mellitus without complications (principal)
CPT/HCPCS: 36415; 80048; 80061

== ENCOUNTER → 2022-05-19 | Outpatient (CLI) | payer MEDICARE, OTHER, SELFPAY ==
[2022-05-19 13:28] LABS: PSA,Total- Diagnostic 2.45 ng/mL (0.0-4.0)
== END | disposition home or self-care (01) ==
LOC: MFPLAB 09:54
PROVIDERS: PCP Family Medicine; Visit Provider Urology
DX: C61 Malignant neoplasm of prostate (principal)
CPT/HCPCS: 36415; 84153

== ENCOUNTER 2022-06-16 11:21 | Day surgery (SDC) | payer MEDICARE, OTHER, SELFPAY ==
[2022-06-16] VITALS (7 sets, daily range): BP systolic 124–138; BP diastolic 58–76; PULSE 70–76; RESP 16–18; TEMP 36.1–37.1; O2SAT 97–100; BMI 28.1
[2022-06-16] MEDS: Lactated Ringers 1,000 ML 15 ML IV (12:01)
--- NOTE | 2022-06-16 13:35 | HP.PCM_ITS ---
HPI - General HPI Narrative VILMA SAM, is a 77 M who presents for bilateral stent change and history of cancer status post radiation with scarred down ureters and chronic obstruction Candice changes stents today has been about 6 months since the last change also we will change the Guthrie catheter [facility] Medical History (Updated 06/09/22 @ 13:29 by Leilani Berman) Cancer Chronic pain COVID Diabetes Guthrie catheter in place Gout High cholesterol History of anal cancer History of Clostridium difficile infection HTN (hypertension) Indwelling urethral catheter present Non-smoker Torn meniscus Home Medications amlodipine 5 mg tablet 10 mg PO DAILY bp 06/01/13 [History Last Taken 06/16/22] benazepril 20 mg tablet (Lotensin) 20 mg PO DAILY bp 06/01/13 [History Last Taken 06/16/22] losartan 100 mg tablet 50 mg PO DAILY bp 06/01/13 [History Last Taken 06/16/22] metoprolol succinate 100 mg tablet,extended release 24 hr 100 mg PO DAILY bp 06/01/13 [History Last Taken 06/16/22] leuprolide (3 month) 22.5 mg (3 month) subcutaneous syringe (Eligard) 22.5 mg subcut [id number] PROSTATE CANCER 12/22/18 [History Last Taken 01/07/20] metformin 500 mg tablet,extended release 24 hr 500 mg PO DAILY 04/25/20 [History Last Taken 05/29/21 07:30] rosuvastatin 5 mg tablet 5 mg PO DAILY 12/16/21 [History Last Taken Unknown] ciprofloxacin HCl 500 mg tablet (Cipro) 500 mg PO BID #6 tabs 06/16/22 [Rx Last Taken Unknown] Allergy/AdvReac Type Severity Reaction Status Date / Time hydromorphone [From Dilaudid] AdvReac Other Verified 06/16/22 11:59 meperidine [From Demerol] AdvReac Nausea/Vom/ Verified 06/16/22 11:59 Diarrhea Surgical History (Updated 06/09/22 @ 13:26 by Leilani Berman) History of appendectomy History of back surgery History of cholecystectomy History of removal of Port-a-Cath Hx of cataract surgery Hx of colonoscopy Hx of cystoscopy Hx of cystoscopy Hx of cystoscopy Hx of cystoscopy (~01/23/20) Hx of cystoscopy (~05/28/20) Hx of cystoscopy Hx of dilation of urethra Social History (Updated 12/22/18 @ 17:20 by Ifeanyi MCCOY PA) Smoking Status: Never smoker alcohol intake: never Vital Signs Vital Signs Vital Signs: 06/16/22 12:02 06/16/22 12:02 Temperature 97 F L Temperature Source Temporal Pulse Rate 70 Respiratory Rate 18 Respiratory Pattern Normal Blood Pressure 133/76 H Blood Pressure Mean 95 Blood Pressure Source Monitor Blood Pressure Position Semi-Fowlers Blood Pressure Location Left Arm Pulse Ox 100 Oxygen Delivery Method Room Air Weight Weight: 88.904 kg Body Mass Index (BMI) 28.1
--- NOTE | 2022-06-16 13:36 | DCINST_ITS ---
Discharge Instructions Diet Discharge Diet: No restrictions and Light diet - advance as tolerated Activity Discharge Activity: Return to Normal Activity Follow Up Care Test Results: Test results from this visit will be discussed in further detail at your follow- up appointment, if applicable. Discharge Plan Admission Primary Reason for Your Visit: stent changes Attending Provider: Siddharth Navarro Primary Care Provider: Rigo Izaguirre Discharge Orders/Prescriptions Prescriptions: New ciprofloxacin HCl [Cipro] 500 mg tablet 500 mg PO BID Qty: 6 0RF Continued Eligard (3 month) 22.5 mg syringe 22.5 mg SC [id number] metoprolol succinate 100 MG tablet 100 mg PO DAILY Label Comments: BP amlodipine 5 MG tablet 10 mg PO DAILY Label Comments: BP benazepril [Lotensin] 20 MG tablet 20 mg PO DAILY Label Comments: BP losartan 100 MG tablet 50 mg PO DAILY Label Comments: BP metformin 500 MG tablet 500 mg PO DAILY rosuvastatin 5 mg tablet 5 mg PO DAILY Referrals / Follow Up: Siddharth Navarro MD [Med Staff - Active Staff] - Rigo Izaguirre MD [Primary Care Provider] - Disposition Disposition (needs filled in before D/C Order can be placed): Home, Self Care
[2022-06-16 14:11] LABS: Bedside Glucose 131 mg/dL (74-106)
[2022-06-16] MEDS: Cefazolin 2 GM in 0.9% Normal Saline 100 ML IV (14:33)
--- NOTE | 2022-06-16 15:03 | OP.PCM_ITS ---
Report of Operation Date of Procedure: 06/16/22 Pre-Operative Diagnosis: Prostate cancer bilateral ureteral obstruction chronic stents Surgery/Procedure Performed:: Cystoscopy and bilateral stent changes Description of Surgical Findings:: Patient was taken back to the operating room after induction of general anesthesia, the patient was placed in dorsolithotomy position. The urethra and genitals were prepped and draped in usual sterile fashion. Using a 21 Sammarinese rigid cystourethroscope the entire length of the urethra was normal then went into the bladder. Identified the trigone the left and right ureteral orifice. I then cannulated the Left ureteral orifice and advanced a wire up into the kidney. I then backloaded a 5 Sammarinese open ended catheter over the wire and injected contrast to delineate the anatomy. After the retrograde was performed I then used fluoroscopic images and guidance to advanced a wire up into the kidney and over the 0.038 glidewire I advanced a 6 Sammarinese by 26 cm double pigtail stent. I then pulled the 0.038 Glidewire off and the stent coiled in the kidney bladder good position. The bladder was then drained. We confirmed the position of the stent by fluoroscopy. Then using a 21 Sammarinese rigid cystourethroscope the entire length of the urethra was normal then went into the bladder. Identified the trigone the left and right ureteral orifice. I then cannulated the Right ureteral orifice and advanced a wire up into the kidney. I then backloaded a 5 Sammarinese open ended catheter over the wire and injected contrast to delineate the anatomy. After the retrograde was performed I then used fluoroscopic images and guidance to advanced a wire up into the kidney and over the 0.038 glidewire I advanced a 6 Sammarinese by 26 cm double pigtail stent. I then pulled the 0.038 Glidewire off and the stent coiled in the kidney bladder good position. The bladder was then drained. We confirmed the position of the stent by fluoroscopy. Patient anesthetic was reversed and was taken back to the PACU in good condition. Patient anesthetic was reversed and was taken back to the PACU in good condition. Surgeon: Siddharth Navarro Type of Anesthesia: General Drains: stent Admit VTE Documentation VTE Present on Admission: No VTE Mechan Device Prophylaxis: SCD's VTE Pharm Prophylaxis ordered?: No
[2022-06-16 15:41] LABS: Bedside Glucose 104 mg/dL (74-106)
== END 2022-06-16 16:02 | disposition home or self-care (01) ==
LOC: SDC 11:24 → AC 11:26
PROVIDERS: PCP Family Medicine; Referring Provider Urology; Visit Provider Urology
PROC: (CPT 52332; principal; 2022-06-16 13:20)
DX: N13.5 Crossing vessel and stricture of ureter without hydronephrosis (principal); E11.9 Type 2 diabetes mellitus without complications; G89.29 Other chronic pain; I10 Essential (primary) hypertension; E78.00 Pure hypercholesterolemia, unspecified; Z86.16 Personal history of COVID-19; Z79.899 Other long term (current) drug therapy; Z79.84 Long term (current) use of oral hypoglycemic drugs
CPT/HCPCS: 52332; 00910; 76000; 82962; J7120; C1769; J2405

== ENCOUNTER → 2022-07-12 | Outpatient (CLI) | payer MEDICARE, OTHER, SELFPAY ==
[2022-07-12 16:04] LABS: Absolute Lymphocyte Count 0.96 X10^3/uL (0.83-4.51); Absolute Neutrophil Count 4.2 X10^3/uL (2.0-7.7); Basophil# 0.04 X10^3/uL; Basophil% 0.7 % (0-1); Eosinophils% 3.4 % (0-5); Hemoglobin 12.3 g/dL (13.0-16.5); Lymphocyte # 0.96 X10^3/ul (0.83-4.51); Lymphocyte % 16.1 % (19-41); Mean Corp Hgb Conc 33.2 g/dL (32-36); Mean Corpuscular Hgb 27.3 pg (27.0-32.0); Mean Corpuscular Volume 82.2 fL (80-94); Mean Platelet Vol. 9.7 fl (6.2-12.0); Monocyte# 0.52 X10^3/uL; Monocyte% 8.7 % (0-10); NRBC Flagged by Analyzer 0 % (0-5); Neutrophil # 4.22 X10^3/uL (2.7-7.7); Neutrophil % 70.6 % (47-70); Platelet Count 222 K/mm3 (150-450); RBC Distribution Width CV 14.6 % (11.6-14.6); RBC Distribution Width SD 43.8 fl (35.1-43.9)
[2022-07-12 16:18] LABS: AST(SGOT) 20 U/L (15-37); Alanine Aminotransfer ALT/SGPT 30 U/L (16-61); Albumin, Serum 3.8 g/dL (3.2-5.0); Alkaline Phosphatase 82 U/L (45-117); Anion Gap 8 (5-15); BUN 31 mg/dL (7-18); Calcium,Total 9.7 mg/dL (8.5-10.1); Chloride 107 mmol/L (98-107); Creatinine, Serum 1.72 mg/dL (0.70-1.30); EST Glomerular Filtration Rate 41 mL/min (>60); Est Glom Filt Rate - Afr Amer 50 mL/min (>60); Globulin 3.8 g/dL (2.2-4.2); Glucose 169 mg/dL (74-106); Potassium 4.2 mmol/L (3.5-5.1); Protein, Total 7.6 g/dL (6.4-8.2); Sodium Level 140 mmol/L (136-145)
== END | disposition home or self-care (01) ==
LOC: MFPLAB 15:31
PROVIDERS: PCP Family Medicine; Visit Provider Nurse Practitioner Family
DX: N18.9 Chronic kidney disease, unspecified (principal); D64.9 Anemia, unspecified
CPT/HCPCS: 36415; 80053; 85025

== ENCOUNTER 2022-07-20 07:47 | Day surgery (SDC) | payer MEDICARE, OTHER, SELFPAY ==
[2022-07-13] MEDS: Cefazolin 2 GM in 0.9% Normal Saline 100 ML IV (09:02)
[2022-07-20] VITALS (8 sets, daily range): BP systolic 133–156; BP diastolic 47–79; PULSE 70–74; RESP 16–18; TEMP 36.3–36.8; O2SAT 95–100; BMI 28.4
[2022-07-20] MEDS: Lactated Ringers 1,000 ML 15 ML IV (08:19)
--- NOTE | 2022-07-20 08:24 | PCM.HP.BLA ---
History and Physical Date of Admission: 07/20/22 [facility] [address] [place] [address] OFFICE VISIT Date of Service:? 06/21/22 MR#: [id number] Acct: [id number] Name:VILMA COMBS Rep #: [id number] : 1945 ? ? Provider: Dr. Jordan Garcia, DO Age/Sex:? 77/M ? ? Location: [facility] [place] [facility] Status: Signed Intake Vital Signs ? 06/16/2311:02 06/21/2312:13 Height 5 ft 10 in 5 ft 9 in Weight: ? 195 lb BMI ? 28.8 Intake Visit Reasons:?LEFT KNEE Chief Complaint: left knee Accompanied by: Is patient in pain?: Yes Pain scale (1-10): 8 Allergies hydromorphone [From Dilaudid] Adverse Reaction (Verified 06/16/22 11:59) Othermeperidine [From Demerol] Adverse Reaction (Verified 06/16/22 11:59) Nausea/Vom/Diarrhea Medications amlodipine 5 mg tablet 10 mg PO DAILY bp 06/01/13 [History Confirmed 06/21/22] losartan 100 mg tablet 50 mg PO DAILY bp 06/01/13 [History Confirmed 06/21/22] metoprolol succinate 100 mg tablet,extended release 24 hr 100 mg PO DAILY bp 06/01/13 [History Confirmed 06/21/22] leuprolide (3 month) 22.5 mg (3 month) subcutaneous syringe (Lex Machinabeatriced) 22.5 mg subcut [id number] PROSTATE CANCER 12/22/18 [History Confirmed 06/21/22] metformin 500 mg tablet,extended release 24 hr 500 mg PO DAILY 04/25/20 [History Confirmed 06/21/22] rosuvastatin 5 mg tablet 5 mg PO DAILY 12/16/21 [History Confirmed 06/21/22] PFSH Medical History? Cancer Chronic pain COVID Diabetes Guthrie catheter in place Gout High cholesterol History of anal cancer History of Clostridium difficile infection HTN (hypertension) Indwelling urethral catheter present Non-smoker Torn meniscus Surgical History? History of appendectomy History of back surgery History of cholecystectomy History of removal of Port-a-Cath Hx of cataract surgery Hx of colonoscopy Hx of cystoscopy Hx of cystoscopy Hx of cystoscopy Hx of cystoscopy (~01/23/20) Hx of cystoscopy (~05/28/20) Hx of cystoscopy Hx of dilation of urethra Social History? Smoking Status:? Never smoker alcohol intake:? never HPI LEFT KNEE Details: Parts of this documentation were recorded by a scribe, this documentation accurately reflects the service provided and the decisions made by me, Dr. oJrdan Garcia, DO 06/21/22 0808. VILMA SAM is a 77 year old M NEW patient here today for left knee pain that he has been having since about 09/2021. Denies any injury to the knee. He states that he started having pain and saw his PCP and had xrays. He did complete PT from 02/11/2022 through 03/18/2022 which caused his pain to become worse. He has also had a lower extremity arterial study as well as an EMG of the left lower leg. He had an MRI of the left knee in 03/2022. He did have a steroid injection 03/29/2022 which did not help at all with the pain. He then had a left knee Duralone injection which was not helpful at all either. He has all anterior knee pain around his patella. He states that his pain occasionally radiates about 4-5 inches into the thigh. Denies numbness, tingling or other associated symptoms. He does feel that the knee wants to give out on him at times and it is painful when it gives out. He has been using a cane now for ambulation since PT. He was taking Meloxicam but this wasn't helpful and then his [employer] told him to stop taking NSAIDs. Ortho Exam General General: Yes no acute distress Neurologic: Yes alert and Yes oriented x3 Psychologic: Yes reasonable and appropriate Right Knee Patella Translation: 1 Left Knee Skin/Wound: Yes CDI, No ecchymosis, No erythema and No swelling Homans Sign: No Knee ROM: No ROM-Extension -20 to 0 (lackign 23) and No ROM-Flexion 0-140 (108) Examination: No med jt line tenderness, No Lat jt line tenderness, Yes Tasneem's Test and No TTP Pes Anserine Stability: NML: Anterior Drawer, NML: Posterior Drawer, NML: Valgus 0, NML: Valgus 30, NML: Varus 0 and NML: Varus 30 Apprehension with Lateral Translation: No Patella Translation: 1 Patella Grind: No KNEE: edema to upper 3rd of leg no joint effusion painful medial and lateral rosalie numbness to the bottom 3rd of his leg denies any hx of infections on his feet Head: Normocephalic Atraumatic Chest: symmetrical rise, non-labored breathing, no audible wheeze Abdomen: no guarding, non-rigid Supplemental Info 03/24/2022 MRI left knee:Partial thickness radial tear of the posterior horn of the medial meniscus adjacent to the meniscal root.? Mild thinning of the articular cartilage of the medial and lateral? femorotibial compartments.? moderate thinning of the articular cartilage of the patellofemoral compartment.? Grade III chondromalacia of the lateral patellar facet.? Prepatellar subcutaneous soft tissue edema.? Small joint effusion.? 01/11/2022 EMG bilateral lower extremity: Markedly abnormal study generalized, axonal, active and chronic sensorimotor peripheral neuropathy 10/05/2021 x-ray left knee: Mild degenerative change and chondrocalcinosis mild ?? Coding Level of Care Code Off vis,new,level 3 Diagnoses Prostate cancer? C61 Medial meniscus tear? S83.249A Left knee DJD? M17.12 Assessment and Plan Assessment and Plan (1) Prostate cancer: ?Status:?Acute (2) Medial meniscus tear: ?Status:?Acute (3) Left knee DJD: ?Status:?Acute Plan Obtained X-rays of patient's left knee. Personally reviewed x-rays. There is no obvious fracture, dislocation, or lucency noted. Patient educated that he does have arthritis of the left knee along with a meniscus tear which seems to be degenerative tear. He has tried and failed conservative care which has included bracing, PT, steroid injection and visco injections with [facility].? Surgical treatment option is to have a left knee arthroscopy for a partial meniscectomy. Educated that with the surgical option there is a risk that he could still have pain from the arthritis of the knee. Reviewed the pre-operative plans with the patient. Risks and benefits of the procedure were fully explained, including but not limited to infection, neurovascular injury, continued pain, arthritis, stiffness, need for further surgery, re-injury, DVT, PE, general risks of anesthesia, and loss of limb or life. The patient understands all the risks and does wish to proceed with written consent for left knee arthroscopy for partial medial meniscectomy. He will need medical clearance d/t his Stage 4 prostate cancer. Follow up 2 weeks post op or sooner if pain, swelling, numbness or associated symptoms, or concerns develop.? All questions answered. Patient in agreement of plan. Tentative surgery date 07/06/2022 06/21/22 1436 <Electronically signed by Jordan Garcia DO> Date Jordan Garcia DO Cosigner Signature: Date (if applicable) I have examined the patient and the H&P has been reviewed. There are no clinical changes since date of exam.
[2022-07-20] MEDS: Epinephrine (1 mg/ml) 1 MG/ML VIAL ×2 (08:25→09:25)
[2022-07-20 08:40] LABS: Bedside Glucose 125 mg/dL (74-106)
[2022-07-20] MEDS: Cefazolin 2 GM in 0.9% Normal Saline 100 ML IV (09:02)
[2022-07-20] MEDS: Bupiv/Epi 0.25% 30 ML Vial (09:35)
[2022-07-20] MEDS: MethylPREDNISolone Acetate 80 MG/ML Vial (09:47)
[2022-07-20] MEDS: Bupivacaine 0.5% PF 10 ML VIAL (09:49)
--- NOTE | 2022-07-20 09:55 | OP.PCM_ITS ---
Operative Report Date of Procedure: 07/20/22 Preop diagnosis: Left knee posterior root medial meniscus tear Postoperative diagnosis: Left knee partial tear of the root of the medial meniscus, partial tear of root lateral meniscus grade 3 cartilage wear posterior medial femoral condyle grade 4 cartilage wear small area of trochlea crystalline deposition, medial and lateral plica band Procedure: Left knee arthroscopic partial medial partial lateral meniscectomy excision of medial and lateral plica Anesthesia: General Estimated blood loss: 5 mL Tourniquet time: 25 minutes 300 mmHg Complications: none Indication for procedure: 77-year-old male patient with ongoing knee pain was failed conservative treatment did have MRI evidence of a posterior root medial meniscus tear the patient did wish to proceed with an elective arthroscopic surgery to attempt to alleviate the symptoms. Risk benefits and alternatives of the procedure were reviewed including risk of bleeding infection nerve artery tissue damage need for further surgery continued pain and expected postoperative course. Procedure: The patient was met in the preoperative holding area. The operative extremity was identified by both patient and physician and family and marked. Patient was brought back to the operating room on a wheeled cart and transferred to the operating table in the supine position. Anesthesia was started. A well- padded tourniquet was placed on the operative extremity. A lower extremity leg jacobs was secured to the operative extremity. The contralateral extremity was well-padded and the end of the bed was flexed to 90 degrees. The patient was prepped and draped in the usual sterile fashion. A timeout was called to ensure the proper patient, procedure, and extremity were being contemplated. 0.5% Marcaine with epinephrine was injected into the planned incisional areas under the skin only. An Esmarch was used to exsanguinate the extremity and the tourniquet was inflated. An 11 blade scalpel was used to make a stab incision in the anterior lateral portal. The arthroscope was inserted into the intercondylar notch and inflow and outflow tubes were attached. Arthroscopic visualization began. The medial compartment was entered. An 18-gauge spinal needle was used to establish the placement for anterior medial portal. An 11 blade scalpel was used to make a stab incision. Blunt probe was inserted followed by a meniscal probe. Immediately there was noted to be thickening of the soft tissue and synovium. I had to use a shaver to perform a synovectomy to allow for visualization with the knee was flexed the posterior medial femoral condyle was noted to have grade 3 cartilage wear but no loose cartilage flaps need to be debrided there was a small partial-thickness tear of the root of the medial meniscus which was debrided with a shaver the ACL was found to be intact. The lateral compartment was entered there was a small partial tear of the root of the lateral meniscus which was debrided with a shaver was also noted to be crystalline deposition within the soft tissues around the knee The arthroscope was switched to the medial portal to complete the procedure. The medial and lateral gutters were inspected and were free of loose bodies. The patellofemoral joint was inspected and there was a grade four 1 cm defect of the central trochlea was also noted to be thickened medial and lateral plica bands which were excised. There was good patellar tracking. The knee was thoroughly irrigated and drained. An intra-articular injection with 5 cc 0.5% Marcaine plain and 40 mg of Depo-Medrol was injected intra-articularly. The arthroscope was removed the portals were closed with 3-0 nylon arthroscopic stitches. Followed by Xeroform 4 x 4's ABDs web roll and an Buck wrap. The tourniquet was let down and the drapes were removed. All counts were correct. The patient was brought back to the PACU in stable condition.
--- NOTE | 2022-07-20 09:59 | DCINST_ITS ---
Discharge Instructions Diet Discharge Diet: No restrictions Activity Weight Bearing Status: Weight bearing as tolerated Dressing / Incision Call your doctor if you observe: Shortness of breath and Chest pain Additional Dressing/Incision Instructions:: Ice and elevate next 72 hours .keep dressing on clean and dry for 48 hours then may remove begin showering daily but do not submerge in tub or pool. After shower may apply Band-Aids . Encourage knee range of motion weightbearing as tolerated, use crutches until confident in knee then may discontinue. No strenuous activity. When not ambulating keep iced and elevated next 72 hours. Do not mix pain medication with recreational drugs or alcohol only take as prescribed can be addictive and abusive, call with any questions or concerns. Follow Up Care Please Follow Up With: Jordan Garcia DO When: 2 weeks Test Results: Test results from this visit will be discussed in further detail at your follow- up appointment, if applicable. Discharge Plan Admission Attending Provider: Jordan Garcia Primary Care Provider: Rigo Izaguirre Discharge Orders/Prescriptions Prescriptions: New oxycodone 5 mg tablet 5 - 10 mg PO Q4H PRN (Reason: pain) 7 Days Qty: 30 0RF No Action Eligard (3 month) 22.5 mg syringe 22.5 mg SC [id number] metoprolol succinate 100 MG tablet 100 mg PO DAILY Label Comments: BP amlodipine 5 MG tablet 10 mg PO DAILY Label Comments: BP losartan 100 MG tablet 50 mg PO DAILY Label Comments: BP metformin 500 MG tablet 500 mg PO DAILY rosuvastatin 5 mg tablet 5 mg PO DAILY Referrals / Follow Up: Rigo Izaguirre MD [Primary Care Provider] - Disposition Discharge Orders: Discharge Patient (Routine); Ordered 07/20/22 Ordered By: Dr. Jordan Garcia
[2022-07-20 10:30] LABS: Bedside Glucose 110 mg/dL (74-106)
--- NOTE | 2022-07-20 11:33 | SUR.PHASEII ---
PT JERKING IN BED, ANESTHESIA AND CHARGE NURSE IN TO SEE HIM. STATES THAT LAST TIME HE REACTED THIS WAY HE WAS TOLD THAT IT WAS THE ANESTESIA WEARING OFF AND THAT EVENTUALLY IT STOPPED. WILL CONTINUE TO MONITOR HIM.
== END 2022-07-20 12:41 | disposition home or self-care (01) ==
LOC: SDC 07:47 → AC 07:48
PROVIDERS: PCP Family Medicine; Referring Provider Family Medicine; Visit Provider Orthopaedic Surgery
PROC: (CPT 29870; principal; 2022-07-20 08:55)
DX: M23.222 Derangement of posterior horn of medial meniscus due to old tear or injury, left knee (principal); C61 Malignant neoplasm of prostate; E11.9 Type 2 diabetes mellitus without complications; M23.252 Derangement of posterior horn of lateral meniscus due to old tear or injury, left knee; X58.XXXA Exposure to other specified factors, initial encounter; M67.52 Plica syndrome, left knee; I10 Essential (primary) hypertension; E78.00 Pure hypercholesterolemia, unspecified; M17.12 Unilateral primary osteoarthritis, left knee; M22.42 Chondromalacia patellae, left knee; G89.29 Other chronic pain; Z79.84 Long term (current) use of oral hypoglycemic drugs; Z79.899 Other long term (current) drug therapy; Z86.16 Personal history of COVID-19
CPT/HCPCS: 29880; 01400; 82962; 93005; J7120; J2405

== ENCOUNTER → 2022-08-24 | Outpatient (CLI) | payer MEDICARE, OTHER, SELFPAY | END | disposition home or self-care (01) | LOC: MFPLAB 09:15 | PROVIDERS: PCP Family Medicine; Visit Provider Registered Nurse | DX: C61 Malignant neoplasm of prostate (principal) | CPT/HCPCS: 36415; 84153 ==

== ENCOUNTER → 2022-08-30 | Outpatient (CLI) | payer MEDICARE, OTHER, SELFPAY ==
[2022-08-30 16:08] LABS: Uric Acid 5.7 mg/dL (3.5-7.2)
== END | disposition home or self-care (01) ==
PROVIDERS: PCP Family Medicine; Visit Provider Orthopaedic Surgery
DX: M10.9 Gout, unspecified (principal)
CPT/HCPCS: 36415; 84550

== ENCOUNTER 2022-09-02 14:00 | Outpatient (RCR) | payer MEDICARE, OTHER, SELFPAY ==
--- NOTE | 2022-08-04 14:51 | HP.PTEVAL ---
Patient's Visit Information VILMA SAM is a 77 year old M referred to Physical Therapy by Dr. Jordan Garcia DO with a diagnosis of Left Knee Scope. Date of Evaluation: 08/04/22 Physical Therapist: Shanice Phelan DPT - Visit Plan Frequency: 2x /Week Duration: 4 Weeks Plan: Left Knee Scope 06/23/22- focus on LE ROM and strength with functional mobility. HEP Given IE: Bolster Extn, Quad set, SLR, heel slide - Subjective 07/21/22 Dr. Ibarra performed a Left knee arthroscopic partial medial partial lateral meniscectomy excision of medial and lateral plica- he saw him the other day and he is going to do an injection in 4 weeks. The knee is not anyless painful than before surgery. He gave him some pain medication and is Voltaran gel. Pain is located along the distal patella and radiated above the patella and into the medial joint line- He had chemo in 2013 and he has had spots in his legs since then- so he has soreness in his left ankle. Has had 2 back surgeries so he knows what nerve pain feels like and he does not have that. The leg feels heavy and the pain is constant- its a soreness pain. Worst: 12/23 Agg: weather. Eases: nothing seems to make it better. Best: 07/23. No N/T in the toes. 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 He doesn't plan to go back just wants to be able to do some easy golfing. Sleep: wakes him up- right side- he is sleeping in his bed. He started using the cane late last year- due to the knee pain- they were worried about him falling. Fully I prior to surgery- able to drive. PMHx/Meds: no change since saw Dr. Ibarra. - Objective Posture: FH, RS- can correct with verbal cues but does not maintain. Gait: antalgic- decreased stance on the left LE with poor heel toe pattern- does not reach full extension. HR/TR: able to UE A. SLS: weight shift but does not SLS due to balance. Palpation: tender to medial and lateral joint line, distal patella and distal quad Flex: HS: severe, Gastroc: severe. ROM: WFL in all planes. Strength: Core: poor, Hip: 4-/5, Knee: Flexion: 4-/5 Extn: 4+/5, Ankle: 5/5. Observation: no s/s of infection. Transfers: sit to stand: requires UE A - Balance/Special Test Scores Lower Extremity Functional Score: 14 - Goals Goal 1:: Patient will be I with HEP and progression Goal Time Frame: 4-6 Weeks Goal 2:: Patient will ambulate >300 feet with a normalized gait pattern and LRD Goal Time Frame: 4-6 Weeks Goal 3:: Patient will asc/desc 8 recip with 1 HR Goal Time Frame: 4-6 Weeks Goal 4:: Patient will report 80% improvement Goal Time Frame: 4-6 Weeks - Rehabilitation Potential Physical Therapy Diagnosis: Patient presents with hypomobility- he has decreased LE and core strength/stabilization, proprioception, flex and muscular endurance leading to poor posture and increased pain with ADL's s/p left knee scope Rehabilitation Potential: Good - Anticipated Interventions Patient/Client Instruction: Educate patient on: Benefits of Fitness Program Therapeutic Exercise to Include: Strength training, Endurance training, Balance training, Coordination, Agility training, Body mechanics, Postural training, Flexibilty training, Gait and locomotor training, Neuromotor development, Passive ROM, Active ROM For the Purpose of:: To improve muscle performance and motor function TENS: Yes Cryotherapy (ice pack, ice massage): Yes Thermo therapy (hot pack): Yes Ultrasound (thermal/non thermal): Yes Thank you for the opportunity to evaluate your patient. For Medicare and Medicare HMO plans, please review the plan of care and approve it. It will need to be FAXED BACK to us at [phone] for Medicare purposes. For Medicare only, by signing this I certify the plan of care. Please let me know if there are questions or concerns regarding this plan of care. Physician Signature: Date:
--- NOTE | 2022-09-02 15:12 | HP.PTREVAL ---
Dr. Jordan Garcia, DO, It has been my pleasure to treat VILMA SAM over the last 10 visits for Left Knee Scope. Please see the progress note below for an update on the physical therapy plan of care! Subjective: Patient reports that he saw the MD on Tuesday-who gave him an injection. He was told that it was torn in 2 places. The knee was good all night but he got up this morning and it was really bad. Worst: 3/10 with pain- but more stiffness. The stiffness is in the anterior knee the pains in the quad. He is using the cane just when he goes out in the community. Objective/Function: Posture: FH, RS- can correct with verbal cues but does not maintain. Gait: antalgic- decreased stance on the left LE with poor heel toe pattern- does not reach full extension. Straight Cane HR/TR: able to UE A. SLS: weight shift but does not SLS due to balance. Palpation: tender to medial and lateral joint line, distal patella and distal quad Flex: HS: severe, Gastroc: severe. ROM: WFL in al planes. Strength: Core: poor, Hip: 4-/5, Knee: Flexion: 4-/5 Extn: 4+/5, Ankle: 5/5. Observation: no s/s of infection. Transfers: sit to stand: requires UE A. Did not attempt stairs today as pt had significant pain today Plan Plan: 09/02/22: pt appropriate to continue PT 2x a week for 4 weeks- will call to schedule if he decides he wants to continue- not sure if he will due to other health issues. PT issues HEP (marching, weight shift, hip abd). Left Knee Scope 06/23/22- focus on LE ROM and strength with functional mobility. HEP Given IE: Bolster Extn, Quad set, SLR, heel slide Balance/Gait/Functional tests - Balance/Special Test Scores Lower Extremity Functional Score: 14 Tug Test: >30sec.=impaired mobility Goals Goal 1:: Patient will be I with HEP and progression Goal Time Frame: 4-6 Weeks Goal Progress: Progressing Goal 2:: Patient will ambulate >300 feet with a normalized gait pattern and LRD Goal Time Frame: 4-6 Weeks Goal Progress: Progressing Goal 3:: Patient will asc/desc 8 recip with 1 HR Goal Time Frame: 4-6 Weeks Goal 4:: Patient will report 80% improvement Goal Time Frame: 4-6 Weeks Goal Progress: Progressing Anticipated Interventions Patient/Client Instruction: Educate patient on: Benefits of Fitness Program Therapeutic Exercise to Include: Strength training, Endurance training, Balance training, Coordination, Agility training, Body mechanics, Postural training, Flexibilty training, Gait and locomotor training, Neuromotor development, Passive ROM, Active ROM For the Purpose of:: To improve muscle performance and motor function TENS: Yes Cryotherapy (ice pack, ice massage): Yes Thermo therapy (hot pack): Yes Ultrasound (thermal/non thermal): Yes Please do not hesitate to contact me at [phone] by phone or if you have questions or concerns regarding this new plan of care! Sincerely, Shanice Phelan DPT
--- NOTE | 2022-11-29 12:30 | HP.PTDCNRP_ITS ---
Patient Information Patient Information: VILMA SAM was seen in my office for initial evaluation on 08/04/22. The following Plan of Care was established for this patient: POC Established Initial Frequency: 2x /Week Initial Duration: 4 Weeks Anticipated Interventions Patient/Client Instruction: Educate patient on: Benefits of Fitness Program Therapeutic Exercise to Include: Strength training, Endurance training, Balance training, Coordination, Agility training, Body mechanics, Postural training, Flexibilty training, Gait and locomotor training, Neuromotor development, Pas sive ROM and Active ROM For the Purpose of:: To improve muscle performance and motor function TENS: Yes Cryotherapy (ice pack, ice massage): Yes Thermo therapy (hot pack): Yes Ultrasound (thermal/non thermal): Yes Last Seen Last Seen: This patient was last seen in our office . Pertinent comments regarding their Physical therapy will appear below: Patient to continue HEP and be d/c from PT. At this point I will be discontinuing this patient from physical therapy. I would be happy to see this patient again in the future if found appropriate by the physician. Thank you! Shanice Phelan DPT Balance/Gait/Functional tests Balance/Special Test Scores Lower Extremity Functional Score: 73 Tug Test: >30sec.=impaired mobility
== END 2022-09-02 19:00 | disposition home or self-care (01) ==
LOC: PT 14:00
PROVIDERS: PCP Family Medicine; Referring Provider Orthopaedic Surgery; Visit Provider Orthopaedic Surgery
DX: M17.12 Unilateral primary osteoarthritis, left knee (principal); M79.89 Other specified soft tissue disorders; G89.29 Other chronic pain; M25.662 Stiffness of left knee, not elsewhere classified
CPT/HCPCS: 97110; 97162; 97164

== ENCOUNTER → 2022-09-30 | Outpatient (CLI) | payer MEDICARE, OTHER, SELFPAY ==
[2022-09-30 10:44] LABS: Anion Gap 8 (5-15); BUN 34 mg/dL (7-18); Calcium,Total 9.6 mg/dL (8.5-10.1); Chloride 108 mmol/L (98-107); Cholesterol 215 mg/dL (200); Creatinine, Serum 1.48 mg/dL (0.70-1.30); EST Glomerular Filtration Rate 49 mL/min (>60); Est Glom Filt Rate - Afr Amer 59 mL/min (>60); Glucose 142 mg/dL (74-106); High Density Lipoprotein 44 mg/dL; Potassium 4.4 mmol/L (3.5-5.1); Sodium Level 141 mmol/L (136-145); Triglycerides 323 mg/dL; Very Low Density Lipoprotein 65 mg/dL (5-40)
== END | disposition home or self-care (01) ==
LOC: MFPLAB 08:09
PROVIDERS: PCP Family Medicine; Visit Provider Family Medicine
DX: I10 Essential (primary) hypertension (principal)
CPT/HCPCS: 36415; 80048; 80061

== ENCOUNTER → 2022-10-28 | Outpatient (CLI) | payer MEDICARE, OTHER, SELFPAY ==
[2022-10-28 16:24] LABS: Color, Urine Yellow (Yellow); Glucose, Dipstick Normal (Normal); Ketone-Dipstick 5 mg/dl (Negative); Leukocyte Esterase-Dipstick 500 /ul (Negative); Nitrite-Dipstick Positive (Negative); Occult Blood-Urine 250 /ul (Negative); Protein-Dipstick 500 mg/dl (Negative); Urine Bilirubin Dipstick Negative (Negative); Urine Clarity Cloudy (Clear); Urine Urobilinogen Normal (Normal)
== END | disposition home or self-care (01) ==
LOC: LABSPEC 16:00
PROVIDERS: PCP Family Medicine; Referring Provider Urology; Visit Provider Urology
DX: R30.0 Dysuria (principal)
CPT/HCPCS: 81002

== ENCOUNTER → 2022-11-23 | Outpatient (CLI) | payer MEDICARE, OTHER, SELFPAY | END | disposition home or self-care (01) | LOC: MFPLAB 08:43 | PROVIDERS: PCP Family Medicine; Visit Provider Urology | DX: C61 Malignant neoplasm of prostate (principal) | CPT/HCPCS: 36415; 84153 ==

== ENCOUNTER 2022-12-17 11:32 | Day surgery (SDC) | payer MEDICARE, OTHER, SELFPAY ==
[2022-12-17] VITALS (7 sets, daily range): BP systolic 130–151; BP diastolic 65–76; PULSE 68–80; RESP 16–18; TEMP 36.3–36.6; O2SAT 94–98; BMI 28.8
[2022-12-17] MEDS: Lactated Ringers 1,000 ML 15 ML IV (11:45)
[2022-12-17 12:21] LABS: Bedside Glucose 126 mg/dL (74-106)
[2022-12-17] MEDS: Cefazolin 2 GM in 0.9% Normal Saline 100 ML IV (13:07)
--- NOTE | 2022-12-17 13:34 | HP.PCM_ITS ---
HPI - General General Date of Service: 12/17/22 Chief Complaint: Prostate cancer chronic obstruction HPI Narrative VILMA SAM, is a 77 M who presents for stent changes for chronic obstruction from prostate cancer also Guthrie catheter change retains both the stents. [facility] Medical History (Updated 12/10/22 @ 10:12 by Deneen Olivera) Cancer Chronic pain COVID Diabetes Gout High cholesterol History of anal cancer History of Clostridium difficile infection HTN (hypertension) Indwelling urethral catheter present Non-smoker Torn meniscus Home Medications amlodipine 5 mg tablet 10 mg PO DAILY bp 06/01/13 [History Last Taken 12/17/22] losartan 100 mg tablet 100 mg PO DAILY bp 06/01/13 [History Last Taken 12/17/22] metoprolol succinate 100 mg tablet,extended release 24 hr 100 mg PO DAILY bp 06/01/13 [History Last Taken 12/17/22] leuprolide (3 month) 22.5 mg (3 month) subcutaneous syringe ([employer]) 22.5 mg subcut [id number] PROSTATE CANCER 12/22/18 [History Last Taken 12/16/22] metformin 500 mg tablet,extended release 24 hr 500 mg PO DAILY 04/25/20 [History Last Taken 12/16/22] rosuvastatin 5 mg tablet 5 mg PO DAILY 12/16/21 [History Last Taken 12/16/22] benazepril 20 mg tablet 20 mg PO DAILY 12/10/22 [History Last Taken 12/17/22] ciprofloxacin HCl 500 mg tablet (Cipro) 500 mg PO BID #6 tabs 12/17/22 [Rx Last Taken Unknown] Allergy/AdvReac Type Severity Reaction Status Date / Time hydromorphone [From Dilaudid] AdvReac Other Verified 12/17/22 12:10 meperidine [From Demerol] AdvReac Nausea/Vom/ Verified 12/17/22 12:10 Diarrhea Surgical History (Updated 12/10/22 @ 10:12 by Deneen Olivera) History of appendectomy History of back surgery History of cholecystectomy History of removal of Port-a-Cath Hx of cataract surgery Hx of colonoscopy Hx of cystoscopy Hx of cystoscopy Hx of cystoscopy Hx of cystoscopy (~01/23/20) Hx of cystoscopy (~05/28/20) Hx of cystoscopy Hx of cystoscopy Hx of dilation of urethra Hx of left knee surgery Social History Smoking Status: Never smoker alcohol intake: never Vital Signs Vital Signs Vital Signs: 12/17/22 12:05 12/17/22 12:05 Temperature 97.4 F L Temperature Source Temporal Pulse Rate 72 Respiratory Rate 16 Respiratory Pattern Normal Blood Pressure 151/76 H Blood Pressure Mean 101 Blood Pressure Source Monitor Blood Pressure Position Semi-Fowlers Blood Pressure Location Left Arm Pulse Ox 98 Oxygen Delivery Method Room Air Weight Weight: 91.2 kg Body Mass Index (BMI) 28.8 Results Lab / Micro Data Labs: Laboratory Results - last 24 hr 12/17/22 11:55: POC Glucose 126 H
--- NOTE | 2022-12-17 13:35 | DCINST_ITS ---
Discharge Instructions Diet Discharge Diet: No restrictions Activity Discharge Activity: Return to Normal Activity and May Not Drive (while taking narcotic pain medications.) Dressing / Incision Call your doctor if you observe: Fever of 101 or Higher Follow Up Care Please Follow Up With: Siddharth Navarro MD When: Call [phone] for an appointment Test Results: Test results from this visit will be discussed in further detail at your follow- up appointment, if applicable. Discharge Plan Admission Primary Reason for Your Visit: stent change Attending Provider: Siddharth Navarro Primary Care Provider: Rigo Izaguirre Discharge Orders/Prescriptions Prescriptions: New ciprofloxacin HCl [Cipro] 500 mg tablet 500 mg PO BID Qty: 6 0RF Continued Eligard (3 month) 22.5 mg syringe 22.5 mg SC [id number] metoprolol succinate 100 MG tablet 100 mg PO DAILY Patient Comments: BP amlodipine 5 MG tablet 10 mg PO DAILY Patient Comments: BP losartan 100 MG tablet 100 mg PO DAILY Patient Comments: BP metformin 500 MG tablet 500 mg PO DAILY rosuvastatin 5 mg tablet 5 mg PO DAILY benazepril 20 mg tablet 20 mg PO DAILY Patient Comments: TAKE 1 TABLET BY MOUTH ONCE DAILY Referrals / Follow Up: Rigo Izaguirre MD [Primary Care Provider] - Disposition Disposition (needs filled in before D/C Order can be placed): Home, Self Care
--- NOTE | 2022-12-17 13:35 | OP.PCM_ITS ---
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 He also has a chronic scar tissue in the urethra that is managed with a chronic Guthrie catheter as a result of the radiation therapy in the past. Patient was taken back to the operating room after smooth induction of a MAC local he was placed in comfort position in lithotomy. I then took out the catheter of the penis and testicles were prepped and 50 usual fashion went in the bladder and grabbed existing stent from the left side pulled out the meatus put a wire up to the stent I then performed a retrograde pyelogram and then we placed a stent up on the left side. I then went to the right side grabbed the stent on the right side and then put a wire through the stent performed a retrograde pyelogram over a Pollick catheter and then placed a right new stent on the right side. The Guthrie catheter was then placed in the bladder patient acetic was reversed and he will follow-up for his next Guthrie catheter change and continue with hormone deprivation therapy as an outpatient. Surgeon: Siddharth Navarro Type of Anesthesia: General Drains: stents bilateral Estimated Blood Loss (mL): 0 Admit VTE Documentation VTE Present on Admission: No VTE Mechan Device Prophylaxis: SCD's VTE Pharm Prophylaxis ordered?: No
== END 2022-12-17 14:50 | disposition home or self-care (01) ==
LOC: SDC 11:32 → AC 11:34
PROVIDERS: PCP Family Medicine; Referring Provider Urology; Visit Provider Urology
PROC: (CPT 52332; principal; 2022-12-17 11:50)
DX: C61 Malignant neoplasm of prostate (principal); E11.9 Type 2 diabetes mellitus without complications; Z79.84 Long term (current) use of oral hypoglycemic drugs; Z86.16 Personal history of COVID-19; E78.00 Pure hypercholesterolemia, unspecified; I10 Essential (primary) hypertension; Z79.899 Other long term (current) drug therapy; N31.2 Flaccid neuropathic bladder, not elsewhere classified; R97.20 Elevated prostate specific antigen [PSA]; N13.5 Crossing vessel and stricture of ureter without hydronephrosis
CPT/HCPCS: 52332; 00910; 76000; 82962; J7120; C1769; C2617; J2405

== ENCOUNTER → 2023-01-25 | Outpatient (CLI) | payer MEDICARE, OTHER, SELFPAY ==
--- NOTE | 2023-01-25 18:47 | CT_ITS ---
EXAM: CT LEFT LOWER EXTREMITY WITHOUT INTRAVENOUS CONTRAST CLINICAL INDICATION: templating left TKA TECHNIQUE: Helically acquired images were obtained of the left lower extremity without intravenous contrast. 2-D reformats were performed by the technologist. CTDIvol = ( 18.73 ) mGy, DLP = ( 1472.15 ) mGycm This CT exam was performed using one or more of the following dose reduction techniques: automated exposure control, adjustment of the mA and/or kV according to patient size, and/or use of iterative reconstruction technique. COMPARISON: No relevant prior studies available. FINDINGS: BONES/JOINTS: Preoperative planning study showing diffuse osteopenia. Medial and lateral meniscal chondrocalcinosis noted. Mild degenerative space loss at the medial lateral femorotibial compartments. Small amount of suprapatellar joint fluid. Prominent suprapatellar enthesophyte. Prominent posterior calcaneal enthesophyte. Ankle mortise appears to be intact. End-stage osteonecrosis involving the left hip. Mild to moderate degenerative changes of the pubic symphysis. Mild enthesopathy at the left greater trochanter. Amorphous calcifications and some small ossifications located lateral/peripheral to the left acetabular roof. No acute fracture or malalignment. SOFT TISSUES: Subcutaneous edema involving the distal lower extremity. No radiopaque foreign body. Small fat-containing inguinal hernias bilaterally. VASCULATURE: Peripheral vascular calcifications posteriorly at the level of the lower extremity. BLADDER: Decompressed bladder with Guthrie catheter in place. REPRODUCTIVE: Calcified prostate. CT/Extremity Lower without Contra IMPRESSION: 1. Preoperative planning study demonstrating end-stage osteoarthrosis involving the left hip. 2. Ancillary findings as above. Electronically Signed: Karthikeyan Bonds MD at 1:28 EDT ,
== END | disposition home or self-care (01) ==
PROVIDERS: PCP Family Medicine; Visit Provider Orthopaedic Surgery
DX: M17.12 Unilateral primary osteoarthritis, left knee (principal)
CPT/HCPCS: 73700

== ENCOUNTER → 2023-01-26 | Outpatient (CLI) | payer MEDICARE, OTHER, SELFPAY ==
[2023-01-26 15:43] LABS: AST(SGOT) 19 U/L (15-37); Alanine Aminotransfer ALT/SGPT 68 U/L (16-61); Albumin, Serum 3.9 g/dL (3.2-5.0); Alkaline Phosphatase 98 U/L (45-117); Anion Gap 5 (5-15); BUN 25 mg/dL (7-18); BUN/Creat Ratio 16.6 RATIO (10-20); Calcium,Total 9.8 mg/dL (8.5-10.1); Chloride 109 mmol/L (98-107); Creatinine, Serum 1.51 mg/dL (0.70-1.30); EST Glomerular Filtration Rate 48 mL/min (>60); Est Glom Filt Rate - Afr Amer 58 mL/min (>60); Globulin 3.8 g/dL (2.2-4.2); Glucose 124 mg/dL (74-106); Potassium 4.3 mmol/L (3.5-5.1); Protein, Total 7.7 g/dL (6.4-8.2); Sodium Level 140 mmol/L (136-145)
[2023-01-26 15:50] LABS: Hemoglobin A1c 6.3 % (3.8-5.6)
[2023-01-26 15:53] LABS: Absolute Lymphocyte Count 1.13 X10^3/uL (0.83-4.51); Absolute Neutrophil Count 4.2 X10^3/uL (2.0-7.7); Basophil# 0.04 X10^3/uL; Basophil% 0.6 % (0-1); Eosinophil# 0.23 X10^3/uL; Eosinophils% 3.6 % (0-5); Hematocrit 39.1 % (40-54); Hemoglobin 12.7 g/dL (13.0-16.5); Lymphocyte # 1.13 X10^3/ul (0.83-4.51); Lymphocyte % 17.8 % (19-41); Mean Corp Hgb Conc 32.5 g/dL (32-36); Mean Corpuscular Hgb 27.7 pg (27.0-32.0); Mean Corpuscular Volume 85.2 fL (80-94); Mean Platelet Vol. 10.4 fl (6.2-12.0); Monocyte# 0.72 X10^3/uL; Monocyte% 11.4 % (0-10); NRBC Flagged by Analyzer 0 % (0-5); Neutrophil % 66.3 % (47-70); Platelet Count 226 K/mm3 (150-450); RBC Distribution Width CV 14.2 % (11.6-14.6); RBC Distribution Width SD 43.7 fl (35.1-43.9); Red Blood Count 4.59 M/mm3 (4.6-6.2); White Blood Count 6.3 K/mm3 (4.4-11.0)
== END | disposition home or self-care (01) ==
LOC: MFPLAB 11:51
PROVIDERS: PCP Family Medicine; Visit Provider Family Medicine
DX: Z01.818 Encounter for other preprocedural examination (principal); E11.9 Type 2 diabetes mellitus without complications
CPT/HCPCS: 36415; 80053; 83036; 85025

== ENCOUNTER 2023-02-15 09:33 | Inpatient (IN) | payer MEDICARE, OTHER, SELFPAY ==
[2023-02-04 15:26] LABS: Prothrombin Time (Protime)PT. 12.6 SECONDS (11.7-14.9)
[2023-02-04 15:27] LABS: Partial Thromboplast Time 37.5 Seconds (24.1-36.2)
[2023-02-04 16:10] LABS: Magnesium 2.1 mg/dL (1.6-2.6)
[2023-02-04 16:26] LABS: Hemoglobin A1c 6.4 % (3.8-5.6)
[2023-02-06 09:07] LABS: Fructosamine 264 umol/L (0-285)
[2023-02-15] VITALS (12 sets, daily range): BP systolic 120–160; BP diastolic 59–80; PULSE 68–74; RESP 14–18; TEMP 36.2–36.8; O2SAT 94–99; BMI 28.2
[2023-02-15] MEDS: Magnesium 1 GM over 15 mins IV (10:34)
[2023-02-15] MEDS: Gabapentin 600 MG Tablet PO (10:34)
[2023-02-15] MEDS: Scopolamine 1mg/72hr Patch 1 PATCH TD (10:34)
[2023-02-15] MEDS: Lactated Ringers 1,000 ML 15 ML IV (10:34)
[2023-02-15] MEDS: Acetaminophen 500 MG Tablet 1000 MG PO ×2 (10:34→22:06)
[2023-02-15] MEDS: Insulin Lispro 100 UNIT/ML INSULN.PEN SC ×2 (10:40→15:43)
--- NOTE | 2023-02-15 11:17 | PCM.HP.BLA ---
History and Physical Date of Admission: 02/15/23 [facility] [address] [place] [address] OFFICE VISIT Date of Service: 01/07/23 MR#: [id number] Acct: [id number] Name: VILMA SAM Rep #: [id number] : 1945 Provider: Dr. Jordan Garcia DO Age/Sex: 77/M [place] [facility] [place] Status: Signed Intake Vital Signs 12/18/2311:05 01/07/2310:04 Height 5 ft 10 in 5 ft 10 in Weight: 202 lb BMI 29.0 Intake Visit Reasons: LEFT KNEE Chief Complaint: left knee pain Is patient in pain?: Yes Pain scale (1-10): 6 Allergies hydromorphone [From Dilaudid] Adverse Reaction (Verified 01/07/23 10:08) Othermeperidine [From Demerol] Adverse Reaction (Verified 01/07/23 10:08) Nausea/Vom/Diarrhea Medications amlodipine 5 mg tablet 10 mg PO DAILY bp 06/01/13 [History Confirmed 01/07/23] losartan 100 mg tablet 100 mg PO DAILY bp 06/01/13 [History Confirmed 01/07/23] metoprolol succinate 100 mg tablet,extended release 24 hr 100 mg PO DAILY bp 06/01/13 [History Confirmed 01/07/23] leuprolide (3 month) 22.5 mg (3 month) subcutaneous syringe (Eligard) 22.5 mg subcut [id number] PROSTATE CANCER 12/22/18 [History Confirmed 01/07/23] metformin 500 mg tablet,extended release 24 hr 500 mg PO DAILY 04/25/20 [History Confirmed 01/07/23] rosuvastatin 5 mg tablet 5 mg PO DAILY 12/16/21 [History Confirmed 01/07/23] benazepril 20 mg tablet 20 mg PO DAILY 12/10/22 [History Confirmed 01/07/23] ciprofloxacin HCl 500 mg tablet (Cipro) 500 mg PO BID #6 tabs 12/17/22 [Rx Confirmed 01/07/23] amlodipine 10 mg tablet 10 mg PO DAILY 01/07/23 [History Confirmed 01/07/23] [facility] Medical History Cancer Chronic pain COVID Diabetes Gout High cholesterol History of anal cancer History of Clostridium difficile infection HTN (hypertension) Indwelling urethral catheter present Non-smoker Torn meniscus Surgical History History of appendectomy History of back surgery History of cholecystectomy History of removal of Port-a-Cath Hx of cataract surgery Hx of colonoscopy Hx of cystoscopy Hx of cystoscopy Hx of cystoscopy Hx of cystoscopy (~01/23/20) Hx of cystoscopy (~05/28/20) Hx of cystoscopy Hx of cystoscopy Hx of dilation of urethra Hx of left knee surgery Social History Smoking Status: Never smoker alcohol intake: never HPI LEFT KNEE Details: Parts of this documentation were recorded by a scribe, this documentation accurately reflects the service provided and the decisions made by me, Dr. Jordan Garcia, DO 01/07/23 0757. VILMA SAM is a 77 year old M here today for continued left knee pain. States that the last set of Euflexxa injections didn't help with his knee pain and he thinks it made it worse. Today he would like to discuss having a TKA with Dr Garcia. Patient does ambulate with a cane. The pain is making it hard to walk. He does feel like his instability has gotten worse as well. States that is pain is over his anterior knee and is going up into the thigh. He is afraid is is going to start affecting his hip because when his knee given out it almost causes his left hip to buckle as well. He has been taking Aleve and using Voltaren and neither of which helps anymore. Patient does have swelling to the BL lower extremities. He does report having numbness in the BL lower leg. Last chemotherapy was in 2013 for prostate cancer. Denies any hx of radiation. He does have an indwelling catheter and an ostomy bag as well. Ortho Exam General General: Yes no acute distress Neurologic: Yes alert and Yes oriented x3 Psychologic: Yes reasonable and appropriate Right Knee Patella Translation: 1 Left Knee Skin/Wound: Yes CDI, No ecchymosis, No erythema and No swelling Homans Sign: No Knee ROM: No ROM-Extension -20 to 0 (lacking 14) and No ROM-Flexion 0-140 (120) Examination: Yes med jt line tenderness, Yes Lat jt line tenderness, Yes Crepitus and Yes Pain with flexion Stability: NML: Anterior Drawer, NML: Posterior Drawer, NML: Valgus 0 and NML: Valgus 30 Patella Translation: 1 Patella Grind: Yes KNEE: edema to BL lower legs worse on right side Left Hip HIP: 10 internal with groin pain 10 external with groin pain Head: Normocephalic Atraumatic Chest: symmetrical rise, non-labored breathing, no audible wheeze Abdomen: no guarding, non-rigid Supplemental Info 07/20/2022 operative report left knee arthroscopy:Postoperative diagnosis: Left knee partial tear of the root of the medial meniscus, partial tear of root lateral meniscus grade 3 cartilage wear posterior medial femoral condyle grade 4 cartilage wear small area of trochlea crystalline deposition, medial and lateral plica band Procedure: Left knee arthroscopic partial medial partial lateral meniscectomy excision of medial and lateral plica 03/24/2022 MRI left knee:Partial thickness radial tear of the posterior horn of the medial meniscus adjacent to the meniscal root. Mild thinning of the articular cartilage of the medial and lateral femorotibial compartments. moderate thinning of the articular cartilage of the patellofemoral compartment. 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 Prepatellar subcutaneous soft tissue edema. Small joint effusion. 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 Personally reviewed x-rays. There is no obvious fracture, dislocation, or lucency noted. Patient educated that he does have arthritis of the left hip as well as the left knee. Patient has tried and failed left knee PT, steroid injection, viscosupplementation and knee bracing and arthroscopy without relief. He wishes to further discuss a left TKA. Risks, benefits and alternatives of surgery reviewed including but not limited to bleeding, infection, nerve, artery and/or tissue damage, fracture, VTE, mechanical feel of the knee, continued pain, stiffness and expected post-operative course. Patient educated that the swelling in his lower legs does increase his risk of infection and blood clots. Patient educated that it is recommended that he is admitted secondary to his age and comorbidities, edema. He will be on blood thinners post op. Discuss the recovery period. Will need PCP and oncology clearance and A1C/fructosamine. will Need CT for makoplasty. b Also discussed IOVERA tx and if this is covered by insurance he wishes to have IOVERA. Should have his catheter changed prior to having TKA, he is due to have his catheter changed the week of January. Tentative surgery date 02/15/2023. Follow up for IOVERA treatment or sooner if pain, swelling, numbness or associated symptoms, or concerns develop. All questions answered. Patient in agreement of plan. 01/07/23 1052 <Electronically signed by Jordan Garcia DO> Date Jordan Garcia DO Cosignemely Signature: Date (if applicable) CC: ~ I have examined the patient and the H&P has been reviewed. There are no clinical changes since date of exam.
[2023-02-15 11:31] LABS: Bedside Glucose 201 mg/dL (74-106)
[2023-02-15] MEDS: Cefazolin 2 GM in 0.9% Normal Saline (100mL Bag) 100 ML IV (11:45)
[2023-02-15] MEDS: TXA 1000mg in NS100 100ml (IVPB at Incision) 660 MG IV (11:55)
--- NOTE | 2023-02-15 12:00 | KNEE_PTH ---
PATIENT: VILMA SAM LOC: MS3 U#:[id number] AGE/SX: 78/M ROOM: [facility] [place] RE02/15/[address]: Dr. Jordan Garcia DO : 1945 BED: 1 DIS: 02/18/2023 SPEC #: [id number] RECD: 02/15/23 15:02 STATUS: BRUCE KALIE #: [id number] DERREK: 02/15/23 12:[address]: Jordan Garcia DEPT: SURGICAL PATHOLOGY RECD BY: Yissel Dennis ENTERED: 02/16/23 10:46 SP TYPE: TOTAL KNEE OTHR DR: DO Dr. Mango Fitch, DO Dr. Rigo Izaguirre MD Tissues: Knee, NOS Procedures: Decalcification bone/plaque Surgery Specimen Level IV HEADER OPERATION: ERAS, total knee arthroplasty, robotic assisted PRE-OP DIAGNOSIS: Left knee degenerative joint disease TISSUE SUBMITTED: Left knee bone and tissue MICROSCOPIC DIAGNOSIS Bone and tissue of left knee, total knee resection: Degenerative joint disease. AM:sarah 02/21/2023 MICROSCOPIC DESCRIPTION Slides are reviewed. GROSS DESCRIPTION Received is one container designated bone and tissue left knee. The specimen consists of multiple fragments of richmond-yellow bone measuring in aggregate 11.0 x 13.0 x 3.0 cm. No soft tissue is identified. A number of bony fragments contain articular surfaces consistent with tibial plateau and femoral condyle and displaying prominent osteophyte formation and bone erosion. Recycling Operations Manager sections are submitted in two cassettes after decalcification. / NIELS:sarah 02/16/2023 TC:5 CPT: 57097, 90518
[2023-02-15] MEDS: Lactated Ringers 1,000 ML 125 ML IV (12:16)
[2023-02-15] MEDS: dexAMETHasone 4 MG/ML Vial (12:32)
[2023-02-15] MEDS: 0.9% Normal Saline (Pres. free 10 ML Vial (12:33)
[2023-02-15] MEDS: Epinephrine (1 mg/ml) 1 MG/ML VIAL (12:34)
[2023-02-15] MEDS: Bupivacaine 0.5% PF 10 ML VIAL (12:35)
[2023-02-15] MEDS: TXA 1000mg in NS100 100ml (IVPB at Closure) 660 MG IV (13:37)
--- NOTE | 2023-02-15 14:12 | CASEMGMT ---
Social Work SW performed chart review; LW and HCPOA documents on file as of 2013. Patient's HCPOA is patient's Claudia and alternate is Mirian Feliz. Gina VELASQUEZ, AVA
--- NOTE | 2023-02-15 14:19 | PCM.OP.BLANK ---
Operative Report Date of Procedure: 02/15/23 Preoperative diagnosis: Left knee DJD with flexion contracture Postoperative diagnosis: Same Procedure: Left total knee arthroplasty CT guided Robotic Assisted Implant: Angi triathlon cemented, femoral component size 7, tibial baseplate size 6, asymmetric patella size 35, polyethylene X3 size 9 CS Anesthesia: Spinal with adductor canal block conversion to general Intra-Op Tourniquet time: 12 minutes at 300 mmHg Complications: None Condition: Stable to PACU Estimated blood loss: 200 cc Product Marketing Analyst Josr Dudley. My physician logging assistant was a vital part of this case. He was important in appropriate retraction during the case, and protection of soft tissues during procedure. His intimate knowledge of the case and my steps aided in safe and expedient completion of the procedure as well as appropriate position of the extremity during the case. He was also vital in assisting with closure under my direct supervision. Indication for procedure: This is a 78-year-old male with long standing degenerative joint disease of the knee who has failed conservative treatment and wished to proceed with elective total knee arthroplasty. Risk benefits and alternatives were reviewed including; risk of bleeding, infection, nerve artery and tissue damage, continued pain, postoperative stiffness, venous thromboembolism, need for postoperative rehabilitation, mechanical feel to the knee, and expected postoperative course. The pre- operative CT and templating was performed with component sizing. Procedure: The patient was met in the preoperative holding area. The operative extremity was identified by both patient and physician and was marked. Patient was met by anesthesia. An adductor canal block was placed by anesthesia postoperatively the patient was brought back to the operating room on a wheeled cart and transferred to the operating table in the supine position. Anesthesia was started. A well-padded tourniquet was placed on the operative extremity. The patient was prepped and draped in the usual sterile fashion. A timeout was called to ensure the proper patient procedure and extremity were being contemplated. An esmarch was used to exsanguinate the extremity. The tourniquet was inflated. A 10 blade scalpel was used to make a midline incision down through the skin and subcutaneous tissue. Skin retractors placed. Bovie and Aquamantis were used to perform meticulous hemostasis. full-thickness flaps were elevated medial and lateral along the joint capsule. A deep blade scalpel was used to perform a medial parapatellar arthrotomy. The knee was brought to full extension. A bovie was used to release the soft tissues off the most proximal aspect of the medial tibial plateau, a three-quarter inch curved osteotome was also used in this process. The infrapatellar fat pad was excised. The suprapatellar fat pad was excised partially anteriorolateraly and portion the anterioromedial pad was elevated from the femur. At this point our intra-articular femoral array was placed at a 45 degree angle proximal and posterior to the medial epicondyle. femoral checkpoint was placed at this time. Our tibial array was placed greater than 1 hands breath below the incision at a 20 degree angle stab incisions were made with a 15 blade scalpel and pins were placed and attached to the tibial array , tibial checkpoint was placed in the proximal tibial metaphysis. Tourniquet was let down. At this point registration newman were taken throughout the knee . Once the knee was registered we then tensioned the medial and lateral ligaments in extension and 90 degrees of flexion. We then used these numbers to adjust our components within parameters to balance the knee in both flexion and extension once this was done on our monitor we then proceeded with using the robotic arm to make our tibial plateau cut, anterior and posterior chamfer and distal femur cuts. we removed the cut fragments with the use of a bovie and Victorina, we did use a lamina electronic controls repairer supervisor to insure we visualized and removed all posterior osteophytes and at this time also used the Aquamantis on the posterior joint capsule. We had to recut the distal femur 3 times since secondary to his flexion contracture to obtain full extension , we then trialed and achieved the desired plan with a well-balanced knee. we used the green probe to radha the corresponding tibial rotation based on our CT template. Lug holes were drilled in the femur the tibia preparation was completed with the appropriate sized base plate pinned based on previous rotation radha. An appropriate sized fin punch was used on the tibia and the patella was prepared by first using a caliper to ensure sufficient bone stock and a patellar reamer to remove the desired amount of bone. lug holes drilled for an asymmetric poly. We then brought the knee through range of motion with excellent patellar tracking. We thoroughly irrigated the knee. Trial components were removed a posterior capsular injection was preformed with our standard cocktail. In addition the aqua Mantis was also used to aid in hemostasis. Betadine rinse was allowed to sit and washed out completely. Components were cemented into place. Aricept rinse was then used followed by several more liters of irrigation after it was allowed to sit. The joint capsule was closed with #1 Ethibond [id number] followed by Vicryl in the subcutaneous tissues with sammi in the skin. Arrays and checkpoints were removed prior to closure all counts were correct stab incisions were closed with a staple standard dressing in the form of Mepilex AG for the main incision and a small Mepilex over the pin holes. Thigh-high JAMILA hose applied over top of dressing. Patient tolerated the procedure well and was directed to PACU in stable condition . There were no intraoperative complications.
[2023-02-15] MEDS: Cefazolin 1 GM/50 ML BAG IV ×2 (14:45→22:05)
--- NOTE | 2023-02-15 14:45 | RAD_ITS ---
STUDY: X-RAY - LEFT KNEE REASON FOR EXAM: Male, 78 years old. Post op -- AP and Lateral x-ray of operative knee in PACU TECHNIQUE: 2 view(s) of the knee. COMPARISON: Comparison is made with prior study dated October 05, 2021. FINDINGS: Normal visualized distal femur. Normal visualized proximal tibia and fibula. Normal proximal tibiofibular articulation. The patient is status post total knee replacement. There is good alignment. Postoperative soft tissue changes. RAD/Knee 1 or 2 Views IMPRESSION: Status post total knee replacement. There is good alignment. Postoperative soft tissue changes. Electronically Signed: Matthew Umana MD at 15:12 EDT ,
[2023-02-15 16:18] LABS: Bedside Glucose 185 mg/dL (74-106)
[2023-02-15] MEDS: 0.9% Normal Saline (1000mL) 1,000 ML 125 ML IV ×2 (17:02→23:48)
[2023-02-15] MEDS: HYDROmorphone 0.5 MG/0.5 ML SYRINGE IV (17:03)
--- NOTE | 2023-02-15 19:14 | PCM.PN.HOSP ---
Subjective Subjective Patient with no acute events since operative intervention. He notes at this point dull aching rating it 1 out of 10 in severity to the left knee otherwise feeling well. He does report being significantly fatigued and continues to doze off intermittently while he is attempting to eat. He denies any history of motion sickness and does not have any history of significant perioperative nausea and emesis or associated with anesthetic administration but does have a scopolamine patch on which was discussed and he is amenable to discontinuing this just in case it is contributing. Patient denies fevers, chills, nausea, emesis, abdominal pain, chest pain or dyspnea. Objective Data Objective Data Vital Signs: Vital Signs Temp Pulse Resp BP Pulse Ox O2 Del Method O2 Flow Rate 97.8 F 72 15 122/62 H 94 Room Air 3 02/15/23 16:36 02/15/23 16:36 02/15/23 16:36 02/15/23 16:36 02/15/23 16:36 02/15/23 16:36 02/15/23 15:45 Oxygen Flow Rate (L/min) 3 Oxygen Delivery Method Room Air Weight: 196 lb 13.965 oz Body Mass Index (BMI) 28.2 Intake & Output: Intake and Output for Last 24 Hours 02/13/23 02/14/23 02/15/23 23:59 23:59 23:59 Intake Total 1380 / 1380 Output Total 1450 / 1450 Balance -70 / -70 Lab / Micro Data Labs: Laboratory Results - last 24 hr 02/15/23 10:16: POC Glucose 201 H 02/15/23 15:41: POC Glucose 185 H Micro: Microbiology 02/04/23 11:47 Swab (Method) Nasal Screen MRSA/MSSA - Final Radiography Diagnostic Testing: Radiology Impression Knee X-Ray 02/15/23 14:45 IMPRESSION: Status post total knee replacement. There is good alignment. Postoperative soft tissue changes. Electronically Signed: Matthew Umana MD at 15:12 EDT , Physical Exam Narrative Physical Examination: General: Awake, alert, oriented x 3 and cooperative, seated upright in SD bed in no apparent distress fatigued appearance reporting that he is intermittently dozing off while he is attempting to eat. Skin: Normal color, normal turgor, no icterus, no cyanosis except status post recent left total knee replacement with dressing in place, no drainage. HEENT: AT/NC, EOMI, PERRLA, dry MM. Lungs: Mildly diminished, greater bases, proper effort, no rales, ronchi or wheezing. Heart: Regular rate and rhythm; no gallop, rub audible. Abdomen: Soft, overweight, NTTP, ND, hyperactive BS. Extremities: No cyanosis, no clubbing, peripheral nonpitting edema, status post left total knee replacement dressing in place with no drainage. Neurological: Patient awake, alert, oriented as noted, cognitive function currently seems appropriately intact but does report frequently dozing off; pupils equally reactive to light and accommodation, cranial nerves grossly normal, moving all 4 extremities except expected left lower extremity difficulty status post recent left total knee replacement. Psychiatric: Affect appears fatigued otherwise normal, no acute evidence of depressive or anxiety feelings. Assessment & Plan Assessment/Plan (1) Left knee pain: QUALIFIERS: Chronicity: chronic Qualified Code(s): M25.562 - Pain in left knee; G89.29 - Other chronic pain PLAN: Plan The patient is an 78 y/o M w/ PMHx: Hx Anal CA, Chronic pain syndrome, Diabetes mellitus type II, HTN, HLD, Hx Cdiff colitis, Prostate CA with chronic indwelling catheter s/p recent BL ureteral stents on leuprolide injections who presents to the [facility] on 02/15[facility]23 for planned L TKR per Dr. Garcia. #1. Severe Osteoarthritis, left knee: Failed conservative therapies and treatments, admitted per Dr. Garcia for planned L TKR, post-operative pain management, bowel regimen, DVT Prophylaxis, PT/OT/CM per Orthopedic surgery discretion. #2. Diabetes mellitus type II: May consider holding oral home regimen, ADA diet, accu checks w/ ISS. Of note patient was administered IV Decadron 10 mg x 1 thus would expect some mild hyperglycemia associated. #3. Hypertension: Continue home regimen including amlodipine, metoprolol home regimen. Will request nursing clarification as patient is listed as being on both benazepril and losartan which were both continued, will discontinue the RICHARD inhibitor at this time until clarified further. PRN hydralazine. #4. Hyperlipidemia: We will continue patient on statin therapy. #5. Prostate cancer: Patient status post recent 12/17/2022 cystoscopy with bilateral retrograde pyelograms as well as a right stent placement, left stent placement and Guthrie changed with chronic indwelling Guthrie catheter per Dr. Navarro. Patient is on chronic every 3 month leuprolide injections, encourage continued outpatient follow-up with urology. #6. History anal cancer: 08/2013 diagnosis found on colonoscopy, status postresection, considered in remission, encourage continued outpatient follow-up as previously arranged. #7. Overweight: Weight loss and lifestyle changes encouraged. #8. DVT prophylaxis: SCDs, Eliquis per Dr. Garcia discretion. Charges/Coding Visit Charges Inpatient E&M: 81190 Subs Hosp L3
[2023-02-15] MEDS: Senna/Docusate Sodium 1 Tablet 2 TABLET PO (22:05)
[2023-02-15 22:31] LABS: Bedside Glucose 157 mg/dL (74-106)
[2023-02-16] MEDS: Acetaminophen 500 MG Tablet 1000 MG PO ×3 (05:15→21:36)
[2023-02-16] MEDS: Cefazolin 1 GM/50 ML BAG IV (06:44)
[2023-02-16] MEDS: 0.9% Normal Saline (1000mL) 1,000 ML 125 ML IV (06:44)
[2023-02-16] MEDS: APIXABAN 2.5 MG TABLET (WCH) PO ×2 (06:47→21:35)
[2023-02-16 07:02] LABS: Bedside Glucose 156 mg/dL (74-106)
[2023-02-16 07:20] LABS: Hematocrit 34.7 % (40-54); Hemoglobin 11.5 g/dL (13.0-16.5); Mean Corp Hgb Conc 33.1 g/dL (32-36); Mean Corpuscular Volume 81.5 fL (80-94); Mean Platelet Vol. 10.4 fl (6.2-12.0); Platelet Count 209 K/mm3 (150-450); RBC Distribution Width CV 13.7 % (11.6-14.6); RBC Distribution Width SD 40.1 fl (35.1-43.9); Red Blood Count 4.26 M/mm3 (4.6-6.2); White Blood Count 7.2 K/mm3 (4.4-11.0)
[2023-02-16 07:35] VITALS: BP 139/99; PULSE 79; RESP 14; TEMP 36.6; O2SAT 97
[2023-02-16 07:44] VITALS: PULSE 79
[2023-02-16] MEDS: Metoprolol(XL)Succ 100 MG Tablet PO (07:44)
[2023-02-16] MEDS: oxyCODONE 5 MG Tablet PO ×4 (07:44→21:39)
[2023-02-16] MEDS: Senna/Docusate Sodium 1 Tablet 2 TABLET PO ×2 (07:44→21:36)
[2023-02-16] MEDS: Losartan Potassium 100 MG Tablet PO (07:45)
[2023-02-16] MEDS: amLODIPine 10 MG Tablet PO (07:45)
[2023-02-16] MEDS: metFORMIN HCl 500 MG Tablet PO (07:45)
[2023-02-16 07:56] LABS: Anion Gap 8 (5-15); BUN 18 mg/dL (7-18); BUN/Creat Ratio 13.4 RATIO (10-20); Chloride 109 mmol/L (98-107); Creatinine, Serum 1.34 mg/dL (0.70-1.30); EST Glomerular Filtration Rate 55 mL/min (>60); Est Glom Filt Rate - Afr Amer 66 mL/min (>60); Glucose 148 mg/dL (74-106); Potassium 4.2 mmol/L (3.5-5.1); Sodium Level 139 mmol/L (136-145)
--- NOTE | 2023-02-16 08:13 | PCM.PN.ORT ---
Subjective Subjective Seen and examined. Complain of pain but overall doing well no fevers chills nausea vomiting shortness of breath or chest pain. No other complaints or concerns Objective Data Objective Data Vital Signs: Vital Signs Temp Pulse Resp BP Pulse Ox O2 Del Method O2 Flow Rate 97.8 F 79 18 131/70 H 98 Room Air 3 02/15/23 20:36 02/16/23 07:44 02/15/23 20:36 02/15/23 20:36 02/15/23 20:36 02/15/23 22:36 02/15/23 15:45 Oxygen Flow Rate (L/min) 3 Oxygen Delivery Method Room Air Weight: 196 lb 13.965 oz Body Mass Index (BMI) 28.2 Intake & Output: Intake and Output for Last 24 Hours 02/14/23 02/15/23 02/16/23 23:59 23:59 23:59 Intake Total 3236.16 / 3236.16 866.67 / 866.67 Output Total 1450 / 1450 600 / 600 Balance 1786.16 / 1786.16 266.67 / 266.67 Lab / Micro Data 02/16/23 06:25 02/16/23 06:25 Labs: Laboratory Results - last 24 hr 02/15/23 10:16: POC Glucose 201 H 02/15/23 15:41: POC Glucose 185 H 02/15/23 22:07: POC Glucose 157 H 02/16/23 06:25: WBC 7.2, RBC 4.26 L, Hgb 11.5 L, Hct 34.7 L, MCV 81.5, MCH 27.0, MCHC 33.1, RDW Std Deviation 40.1, RDW Coeff of Edmar 13.7, Plt Count 209, MPV 10.4, Sodium 139, Potassium 4.2, Chloride 109 H, Carbon Dioxide 22.0, Anion Gap 8, BUN 18, Creatinine 1.34 H, Estim Creat Clear Calc 45.40, Est GFR (MDRD) Af Amer 66, Est GFR (MDRD) Non-Af 55 L, BUN/Creatinine Ratio 13.4, Glucose 148 H, Calcium 9.0, Magnesium 2.0 02/16/23 06:40: POC Glucose 156 H Micro: Microbiology 02/04/23 11:47 Swab (Method) Nasal Screen MRSA/MSSA - Final Radiography Diagnostic Testing: Radiology Impression Knee X-Ray 02/15/23 14:45 IMPRESSION: Status post total knee replacement. There is good alignment. Postoperative soft tissue changes. Electronically Signed: Matthew Umana MD at 15:12 EDT , Physical Exam Const alert and oriented x3 General Appearance: cooperative Extremity Extremity Narrative: Dressing clean dry intact compartment soft neurovascular intact EHL tibialis anterior gastrocsoleus intact sensation light touch 2 out of 4 pedal pulse Assessment & Plan Assessment/Plan (1) S/P total knee arthroplasty: QUALIFIERS: Laterality: left Qualified Code(s): Z96.652 - Presence of left artificial knee joint PLAN: Plan Postop day #1 left total knee arthroplasty PT OT weightbearing as tolerated encourage full knee range of motion Eliquis 2.5 mg twice daily for 2 weeks postop Dressing to be changed daily after 72 hours postop and incision should be cleaned daily at that time with antibacterial soap and warm water DC planning home tomorrow if safe and cleared by physical therapy otherwise may need transitional care or rehab
--- NOTE | 2023-02-16 08:17 | DCINST_ITS ---
Discharge Instructions Diet Discharge Diet: No restrictions Dressing / Incision Call your doctor if you observe: Shortness of breath and Chest pain Additional Dressing/Incision Instructions:: Ice and elevate lower extremities 2 weeks while not ambulating. Ambulation is encouraged. Weight bearing as tolerated. Use assistive devise for stability. Encourage FULL knee extension and flexion 1 time EVERY time you get up and down and MULTIPLE times per day. No showering 72 hours after surgery. Begin showering postop day #3. Remove the dressing prior to shower and gently wash with warm water and antibacterial soap then pat dry and place abdominal pad (or plain gauze) and JAMILA hose over top. This is to be done daily. Do not submerge for 3 weeks. If not showering daily after the initial 72 hours then you must clean incision and change dressing daily. Do not allow animals near the incision area. Keep clean. Follow anti- coagulation recommendations as prescribed. Do not take any NSAIDs while on blood thinner. Do not take any additional narcotic pain medication other than what was prescribed on your surgery day without discussing with physician. Narcotic medication can be addictive. Do not drink alcohol while taking narcotics. Supplement narcotic prescription with acetaminophen 1000 mg 4 times a day. Start physical therapy. If you are not currently scheduled for physical therapy or you are unsure of appointment time please call office JULES to arrange. Call Dr. Garcia with any concerns. Follow Up Care Please Follow Up With: Jordan Garcia DO When: 2 weeks Test Results: Test results from this visit will be discussed in further detail at your follow- up appointment, if applicable. Discharge Plan Admission Admit Date/Time: 02/15/23 09:33 Primary Reason for Your Visit: Left total knee arthroplasty Attending Provider: Jordan Garcia Primary Care Provider: Rigo Izaguirre Consulting Providers: Hamzah Bob; aMngo Sal Discharge Orders/Prescriptions Prescriptions: New acetaminophen [acetaminophen] 500 mg tablet 1,000 mg PO Q6H PRN Qty: 100 0RF Eliquis 2.5 mg tablet 2.5 mg PO BID Qty: 28 0RF oxycodone 5 mg tablet 5 - 10 mg PO Q4H PRN (Reason: pain) 7 Days Qty: 60 0RF Continued Eligard (3 month) 22.5 mg syringe 22.5 mg SC [id number] amlodipine 10 mg tablet 10 mg PO DAILY metoprolol succinate 100 MG tablet 100 mg PO DAILY Patient Comments: BP losartan 100 MG tablet 100 mg PO DAILY Patient Comments: BP metformin 500 MG tablet 500 mg PO DAILY rosuvastatin 5 mg tablet 5 mg PO DAILY benazepril 20 mg tablet 20 mg PO DAILY Patient Comments: TAKE 1 TABLET BY MOUTH ONCE DAILY Referrals / Follow Up: Rigo Izaguirre MD [Primary Care Provider] -
[2023-02-16] MEDS: Insulin Lispro 100 UNIT/ML INSULN.PEN SC ×3 (10:48→21:36)
--- NOTE | 2023-02-16 11:48 | CASEMGMT ---
NATHAN STOUT Assessment: Face to Face with pt for initial transition planning/care coordination assessment. NATHAN STOUT introduced self and role at [facility], pt voices understanding and consents to assessment. Pt is A&O x4 and answers all questions appropriately at this time. Pt sitting up in chair in no distress. Care providers, pharmacy, and demographics verified/updated. Admitting Dx: left total knee arthroplasty robotic PCP:Dmitriy Specialists:Jose, ortho; Melanie, uro Preferred Pharmacy: [facility] Retail Insurance: [facility], [place] Prescription Benefit: yes LNOK: Claudia Smith, Living Arrangements: Pt lives with in a single story home with 3 steps to enter through the garage. Pt reports he was I in ADL's prior to surgery and used a cane. Pt denies concerns at home. Transportation: Pt drives self and denies concerns with transportation. Pt will transport pt until he can drive again. DME:cane, FWW, shower chair, [facility] care. 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 HHC/SNF: Pt has had HHC in the past but cannot recall the name of the agency. Pt denies SNF stays. Pt states no concerns with going home at time of dc. Pt has outpt therapy set up on Tuesday at [facility]. TC to [facility] Retail pharmacy, pt cost of eliquis is $21.84. Pt states no further concerns/needs. CM to follow. Advised pt to ask CM if any further question/concerns/needs arise, voices understanding. Pt Goal: Home with outpt therapy already set up Plan: Home with outpt therapy already set up
[2023-02-16 11:57] LABS: Bedside Glucose 202 mg/dL (74-106)
--- NOTE | 2023-02-16 14:37 | NURSING ---
HOME MEDS VERIFIED W/PT WELL CALLING AT HOME AND CHECKING. PT DOES TAKE ALL THE MEDS ON HIS HOME LIST. COMMUNICATION SENT TO DR OCHOA
--- NOTE | 2023-02-16 14:58 | NURSING ---
DR ALMAGUER CALLED REGARDING PAGE ABOUT HOME MEDS. HE STATES HE WAS GOING TO CALL PTS PCP DR ENRIQUEZ
--- NOTE | 2023-02-16 15:43 | PCM.PN.HOSP ---
Reason for Visit Reason for Visit: Diagnoses Other acute postprocedural pain (02/15/23) Other chronic pain (02/15/23) Pain in left knee (02/15/23) Presence of left artificial knee joint (02/15/23) Subjective Subjective Patient was seen and examined today, there was some confusion because the patient was listed as taking losartan and benazepril as an outpatient, he was only supposed to be on the losartan, I called his PCP and confirm this and his home-going medication list will need to be corrected to confirm that he is not to take the benazepril when he goes home. Objective Data Objective Data Vital Signs: Vital Signs Temp Pulse Resp BP Pulse Ox O2 Del Method O2 Flow Rate 97.8 F 79 14 139/99 H 97 Room Air 3 02/16/23 07:35 02/16/23 07:44 02/16/23 07:35 02/16/23 07:35 02/16/23 07:35 02/16/23 10:00 02/15/23 15:45 Oxygen Flow Rate (L/min) 3 Oxygen Delivery Method Room Air Weight: 89.3 kg Body Mass Index (BMI) 28.2 Intake & Output: Intake and Output for Last 24 Hours 02/14/23 02/15/23 02/16/23 23:59 23:59 23:59 Intake Total 3236.16 / 3236.16 916.67 / 916.67 Output Total 1450 / 1450 600 / 600 Balance 1786.16 / 1786.16 316.67 / 316.67 Lab / Micro Data 02/16/23 06:25 02/16/23 06:25 Labs: Laboratory Results - last 24 hr 02/15/23 15:41: POC Glucose 185 H 02/15/23 22:07: POC Glucose 157 H 02/16/23 06:25: WBC 7.2, RBC 4.26 L, Hgb 11.5 L, Hct 34.7 L, MCV 81.5, MCH 27.0, MCHC 33.1, RDW Std Deviation 40.1, RDW Coeff of [place]mar 13.7, Plt Count 209, MPV 10.4, Sodium 139, Potassium 4.2, Chloride 109 H, Carbon Dioxide 22.0, Anion Gap 8, BUN 18, Creatinine 1.34 H, Estim Creat Clear Calc 45.40, Est GFR (MDRD) Af Amer 66, Est GFR (MDRD) Non-Af 55 L, BUN/Creatinine Ratio 13.4, Glucose 148 H, Calcium 9.0, Magnesium 2.0 02/16/23 06:40: POC Glucose 156 H 02/16/23 10:46: POC Glucose 202 H Micro: Microbiology 02/04/23 11:47 Swab (Method) Nasal Screen MRSA/MSSA - Final Physical Exam Const alert, oriented x3, no apparent distress and healthy appearing General Appearance: cooperative, well kempt and well developed Orientation / Consciousness: awake, oriented to person, oriented to place and oriented to time HEENT normocephalic, head/scalp atraumatic and moist oral mucous membranes Eyes PERRL, EOMs intact bilaterally and conjunctivae normal Neck supple, no JVD, thyroid normal and no carotid bruits General: trachea midline Resp normal respiratory effort, no retractions, no use of accessory muscles and clear to auscultation bilaterally Auscultation: Negative for rales, rhonchi or wheezes Cardio regular rate, regular rhythm, S1 normal heart sound, S2 normal heart sound, no murmurs, no rub and no gallops GI normal to inspection, nondistended, normoactive bowel sounds, soft to palpation, non-tender and non-distended GI Narrative: Patient has a colostomy over the left mid abdominal area Neuro oriented x3, CN's II-XII intact bilaterally, moves all extremities, no focal motor deficits and no sensory deficits noted Sensorium / Orientation: awake, alert, oriented to person, oriented to place and oriented to time Speech: speech normal Psych affect normal Assessment & Plan Assessment/Plan (1) S/P total knee arthroplasty: QUALIFIERS: Laterality: left Qualified Code(s): Z96.652 - Presence of left artificial knee joint PLAN: Plan 1. Essential hypertension-patient will remain on his present medications, again he was not to resume his benazepril when he is discharged home. 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
[2023-02-16 16:00] VITALS: BP 121/65; PULSE 78; RESP 15; TEMP 36.7; O2SAT 98
[2023-02-16] MEDS: Atorvastatin Calcium 10 MG Tablet PO (21:37)
[2023-02-16 21:42] LABS: Bedside Glucose 156 mg/dL (74-106)
[2023-02-16 22:15] LABS: Bedside Glucose 190 mg/dL (74-106)
[2023-02-17 05:58] LABS: Hematocrit 31.5 % (40-54); Hemoglobin 10.4 g/dL (13.0-16.5); Mean Corpuscular Hgb 27.1 pg (27.0-32.0); Mean Platelet Vol. 10.3 fl (6.2-12.0); Platelet Count 176 K/mm3 (150-450); RBC Distribution Width CV 14.2 % (11.6-14.6); RBC Distribution Width SD 41.9 fl (35.1-43.9); Red Blood Count 3.84 M/mm3 (4.6-6.2); White Blood Count 5.5 K/mm3 (4.4-11.0)
[2023-02-17] MEDS: oxyCODONE 5 MG Tablet PO ×4 (06:34→20:42)
[2023-02-17] MEDS: Acetaminophen 500 MG Tablet 1000 MG PO ×3 (06:34→20:42)
[2023-02-17 06:58] LABS: Bedside Glucose 144 mg/dL (74-106)
[2023-02-17 07:54] VITALS: BP 110/70; PULSE 79; RESP 14; TEMP 36.6; O2SAT 96
[2023-02-17] MEDS: metFORMIN HCl 500 MG Tablet PO (08:09)
[2023-02-17] MEDS: Losartan Potassium 100 MG Tablet PO (10:12)
[2023-02-17 10:13] VITALS: PULSE 79
[2023-02-17] MEDS: APIXABAN 2.5 MG TABLET (WCH) PO ×2 (10:13→20:43)
[2023-02-17] MEDS: Metoprolol(XL)Succ 100 MG Tablet PO (10:13)
[2023-02-17] MEDS: amLODIPine 10 MG Tablet PO (10:13)
[2023-02-17] MEDS: Senna/Docusate Sodium 1 Tablet 2 TABLET PO ×2 (10:13→20:42)
--- NOTE | 2023-02-17 11:17 | CASEMGMT ---
Social Work SW spoke with [employer] who states pt was unable to complete stairs and took extended time with ambulation. SW met with pt and introduced self and role of SW. Pt is agreeable that he cannot return home at this time and will need short term rehabilitation. A list of SNF and RU providers including quality and resource use data and consistent with the patient?s preferred geographic region, medical needs, and insurance network were provided from the [employer] Guide. SW explained both levels of care and Medicare coverage. Pt wants time to speak with his regarding options. SW will revisit pt later today for discharge planning. MARY Matute
[2023-02-17 11:34] LABS: Bedside Glucose 155 mg/dL (74-106)
[2023-02-17] MEDS: Insulin Lispro 100 UNIT/ML INSULN.PEN SC ×2 (11:55→20:39)
--- NOTE | 2023-02-17 13:04 | PCM.PN.HOSP ---
Reason for Visit Reason for Visit: Diagnoses Other acute postprocedural pain (02/15/23) Other chronic pain (02/15/23) Pain in left knee (02/15/23) Presence of left artificial knee joint (02/15/23) Subjective Subjective Patient was seen and examined today, he does not have any complaints of shortness of breath, fevers, or chills. Objective Data Objective Data Vital Signs: Vital Signs Temp Pulse Resp BP Pulse Ox O2 Del Method O2 Flow Rate 97.9 F 79 14 110/70 96 Room Air 3 02/17/23 07:54 02/17/23 10:13 02/17/23 07:54 02/17/23 07:54 02/17/23 07:54 02/17/23 09:30 02/15/23 15:45 Oxygen Flow Rate (L/min) 3 Oxygen Delivery Method Room Air Weight: 89.3 kg Body Mass Index (BMI) 28.2 Intake & Output: Intake and Output for Last 24 Hours 02/15/23 02/16/23 02/17/23 23:59 23:59 23:59 Intake Total 3236.16 / 3236.16 1075.00 / 1075.00 Output Total 1450 / 1450 1100 / 1100 1150 / 1150 Balance 1786.16 / 1786.16 -25.00 / -25.00 -1150 / -1150 Lab / Micro Data 02/17/23 05:45 02/16/23 06:25 Labs: Laboratory Results - last 24 hr 02/16/23 16:36: POC Glucose 156 H 02/16/23 21:34: POC Glucose 190 H 02/17/23 05:45: WBC 5.5, RBC 3.84 L, Hgb 10.4 L, Hct 31.5 L, MCV 82.0, MCH 27.1, MCHC 33.0, RDW Std Deviation 41.9, RDW Coeff of [place] 14.2, Plt Count 176, MPV 10.3 02/17/23 06:27: POC Glucose 144 H 02/17/23 11:15: POC Glucose 155 H Micro: Microbiology 02/04/23 11:47 Swab (Method) Nasal Screen MRSA/MSSA - Final Physical Exam Narrative alert, oriented x3, no apparent distress and healthy appearing General Appearance: cooperative, well kempt and well developed Orientation / Consciousness: awake, oriented to person, oriented to place and oriented to time HEENT normocephalic, head/scalp atraumatic and moist oral mucous membranes Eyes PERRL, EOMs intact bilaterally and conjunctivae normal Neck supple, no JVD, thyroid normal and no carotid bruits General: trachea midline Resp normal respiratory effort, no retractions, no use of accessory muscles and clear to auscultation bilaterally Auscultation: Negative for rales, rhonchi or wheezes Cardio regular rate, regular rhythm, S1 normal heart sound, S2 normal heart sound, no murmurs, no rub and no gallops GI normal to inspection, nondistended, normoactive bowel sounds, soft to palpation, non-tender and non-distended GI Narrative: Patient has a colostomy over the left mid abdominal area Neuro oriented x3, CN's II-XII intact bilaterally, moves all extremities, no focal motor deficits and no sensory deficits noted Sensorium / Orientation: awake, alert, oriented to person, oriented to place and oriented to time Speech: speech normal Psych affect normal Assessment & Plan Assessment/Plan (1) S/P total knee arthroplasty: QUALIFIERS: Laterality: left Qualified Code(s): Z96.652 - Presence of left artificial knee joint PLAN: Plan 1. Essential hypertension-patient will remain on his present medications, again he was not to resume his benazepril when he is discharged home. I went over this with him today and he understands. 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
--- NOTE | 2023-02-17 13:27 | PCM.PN.ORT ---
Subjective Subjective Patient was seen and examined today. He denies chest pain, shortness of breath, nausea, vomiting, fevers or chills. He states that his pain is mostly well controlled. He states that he slept well last night. His pain does increase with ambulation. He does acknowledge that he is having some difficulty with ambulation and is hesitant to go home due to the difficulties he is having. PT/OT will evaluate today. Denies any other concerns at this time. Objective Data Objective Data Vital Signs: Vital Signs Temp Pulse Resp BP Pulse Ox O2 Del Method O2 Flow Rate 97.9 F 79 14 110/70 96 Room Air 3 02/17/23 07:54 02/17/23 10:13 02/17/23 07:54 02/17/23 07:54 02/17/23 07:54 02/17/23 09:30 02/15/23 15:45 Oxygen Flow Rate (L/min) 3 Oxygen Delivery Method Room Air Weight: 196 lb 13.965 oz Body Mass Index (BMI) 28.2 Intake & Output: Intake and Output for Last 24 Hours 02/15/23 02/16/23 02/17/23 23:59 23:59 23:59 Intake Total 3236.16 / 3236.16 1075.00 / 1075.00 Output Total 1450 / 1450 1100 / 1100 1150 / 1150 Balance 1786.16 / 1786.16 -25.00 / -25.00 -1150 / -1150 Lab / Micro Data 02/17/23 05:45 02/16/23 06:25 Labs: Laboratory Results - last 24 hr 02/16/23 16:36: POC Glucose 156 H 02/16/23 21:34: POC Glucose 190 H 02/17/23 05:45: WBC 5.5, RBC 3.84 L, Hgb 10.4 L, Hct 31.5 L, MCV 82.0, MCH 27.1, MCHC 33.0, RDW Std Deviation 41.9, RDW Coeff of [place] 14.2, Plt Count 176, MPV 10.3 02/17/23 06:27: POC Glucose 144 H 02/17/23 11:15: POC Glucose 155 H Micro: Microbiology 02/04/23 11:47 Swab (Method) Nasal Screen MRSA/MSSA - Final Physical Exam Const alert and oriented x3 General Appearance: cooperative Extremity Extremity Narrative: Upon inspection of the left knee there is a JAMILA hose over top of 2 dressings that are clean, dry and intact. He has soft compartments. Negative Homans. Intact sensation to light touch throughout left lower extremity. Palpable pedal pulses. Neurovascularly intact. Assessment & Plan Assessment/Plan (1) S/P total knee arthroplasty: QUALIFIERS: Laterality: left Qualified Code(s): Z96.652 - Presence of left artificial knee joint PLAN: Plan Postop day #2 left total knee arthroplasty Continue PT/OT weightbearing as tolerated. Encourage full knee range of motion Eliquis 2.5 mg twice daily for 2 weeks postop Dressing to be changed daily after 72 hours postop and incision should be cleaned daily at that time with antibacterial soap and warm water DC planning to SNF pending insurance and patient preference.
[2023-02-17 13:33] VITALS: BP 160/65; PULSE 83; RESP 18; TEMP 36.9; O2SAT 97
--- NOTE | 2023-02-17 15:13 | CASEMGMT ---
Social Work SW met with pt and and discussed discharge plan. Pt requesting to go to SNF for short term rehab prior to return home. Preferred provider is 1. TCU [facility]. [facility] 3. SW. Referral made to TCU and they are able to accept tomorrow. Pt updated and agreeable. Pt states he will notify his . Hospitalist updated and states he will update ortho. Plan: TCU, can discharge on Tuesday MARY Talamantes
[2023-02-17 16:36] VITALS: BP 151/65; PULSE 88; RESP 16; TEMP 37.3; O2SAT 96
[2023-02-17 16:46] LABS: Bedside Glucose 143 mg/dL (74-106)
[2023-02-17 20:33] VITALS: BP 170/73; PULSE 80; RESP 18; TEMP 36.6; O2SAT 95
[2023-02-17] MEDS: Atorvastatin Calcium 10 MG Tablet PO (20:43)
[2023-02-17 21:11] LABS: Bedside Glucose 167 mg/dL (74-106)
[2023-02-18 03:00] VITALS: BP 166/83; PULSE 81; RESP 18; TEMP 36.8; O2SAT 96
[2023-02-18] MEDS: oxyCODONE 5 MG Tablet PO (06:08)
[2023-02-18] MEDS: Acetaminophen 500 MG Tablet 1000 MG PO (06:08)
[2023-02-18 06:23] LABS: Bedside Glucose 147 mg/dL (74-106)
[2023-02-18 06:54] LABS: Hematocrit 31.2 % (40-54); Hemoglobin 10.3 g/dL (13.0-16.5); Mean Corpuscular Volume 81.7 fL (80-94); Mean Platelet Vol. 10.5 fl (6.2-12.0); Platelet Count 161 K/mm3 (150-450); RBC Distribution Width CV 14.2 % (11.6-14.6); RBC Distribution Width SD 41.9 fl (35.1-43.9); Red Blood Count 3.82 M/mm3 (4.6-6.2); White Blood Count 4.7 K/mm3 (4.4-11.0)
--- NOTE | 2023-02-18 07:56 | TREXTCAR_ITS ---
Diet Diet Order/Speech Therapy: 02/16/23 07:02 ADA [Diet: Consistent Carb - Calorie Controlled] Food consistency:: Regular Liquid Consistency:: Regular/Thin Is pt able to select menu?: Yes How many daily calories?: 1800 calorie Routine Orders/Code Status Routine Lab Work: - (Fingerstick blood sugars every morning, every 4 p.m. daily, Humalog subcu per scale: 200-250: 5 units, 251-300: 8 units, 301-350: 12 units) Wound(s) LEFT KNEE: Wound Type: Surgical Incision Therapies Weight Bearing: Full weight bearing Physical Therapy: Eval and Treat Occupational Therapy: Eval and Treat Problem/Diagnosis (1) S/P total knee arthroplasty: Status: Acute Code(s): Z96.659 - Presence of unspecified artificial knee joint Plan 1. Essential hypertension-patient will remain on his present medications, again he was not to resume his benazepril when he is discharged home. I went over this with him today and he understands. 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-complicates care, medical course, recovery, and prognosis #4 osteoarthritis of the left knee-status post total knee replacement postop day #3-PT and OT are seeing the patient, orthopedic surgery is managing the patient #5 hyperlipidemia-patient is on a statin presently Total clinical time spent by myself addressing the patient's medical issues, reviewing all of his data, and collaborating with patient's care team: 25 minutes Allergies/Procedures Done in Hospital Allergies hydromorphone [From Dilaudid] Adverse Reaction (Verified 02/15/23 10:18) Other tremors PostOp/ not certain if from Dilaudid meperidine [From Demerol] Adverse Reaction (Verified 02/15/23 10:18) Nausea/Vom/Diarrhea Procedures: - (Left total knee arthroplasty CT-guided robotic assisted-02/15/2023) Type of Care/Length of Stay Estimated LOS: Convalescent Care Less Than 30 days Type of Care Needed: Skilled Rehab Potential: Good Prognosis: Good Additional Orders/Day of Discharge H&P will serve as current which was dated: 02/15/23 Day of Discharge: 02/18/23 Follow Up Care Please Follow Up With: Jordan Garcia DO Discharge Plan Admission Admit Date/Time: 02/15/23 09:33 Primary Reason for Your Visit: Left total knee arthroplasty Attending Provider: Jordan Garcia Primary Care Provider: Rigo Izaguirre Consulting Providers: Hamzah Bob; Mango Sal Discharge Orders/Prescriptions Prescriptions: New acetaminophen [acetaminophen] 500 mg tablet 1,000 mg PO Q6H PRN Qty: 100 0RF Eliquis 2.5 mg tablet 2.5 mg PO BID Qty: 28 0RF oxycodone 5 mg tablet 5 - 10 mg PO Q4H PRN (Reason: pain) 7 Days Qty: 60 0RF acetaminophen 500 mg Tablet 1,000 mg PO Q8 Qty: 0 0RF Eliquis 5 mg Tablet 2.5 mg PO BID Qty: 0 0RF oxycodone 5 mg Tablet 5 - 10 mg PO Q4H PRN PRN (Reason: Pain Score 4-10) 2 Days Qty: 10 0RF sennosides-docusate sodium [Stool Softener-Stimulant Laxat] 8.6-50 mg Tablet 2 tab PO BID Qty: 0 0RF Continued amlodipine 10 mg tablet 10 mg PO DAILY metoprolol succinate 100 MG tablet 100 mg PO DAILY Patient Comments: BP losartan 100 MG tablet 100 mg PO DAILY Patient Comments: BP metformin 500 MG tablet 500 mg PO DAILY rosuvastatin 5 mg tablet 5 mg PO DAILY Discontinued Eligard (3 month) 22.5 mg syringe 22.5 mg SC [id number] benazepril 20 mg tablet 20 mg PO DAILY Patient Comments: TAKE 1 TABLET BY MOUTH ONCE DAILY Referrals / Follow Up: Rigo Izaguirre MD [Primary Care Provider] - Jordan Garcia DO [Med Staff - Active Staff] - See Referral Note (In 2 weeks, Dr. Garcia will see the patient in TCU) Disposition Disposition (needs filled in before D/C Order can be placed): Residential Facility (1) S/P total knee arthroplasty Qualifiers: Laterality: left Qualified Code(s): Z96.652 - Presence of left artificial knee joint
[2023-02-18] MEDS: metFORMIN HCl 500 MG Tablet PO (08:33)
[2023-02-18 08:45] VITALS: PULSE 79
[2023-02-18] MEDS: amLODIPine 10 MG Tablet PO (08:45)
[2023-02-18] MEDS: Metoprolol(XL)Succ 100 MG Tablet PO (08:45)
[2023-02-18] MEDS: Senna/Docusate Sodium 1 Tablet 2 TABLET PO (08:46)
[2023-02-18] MEDS: Losartan Potassium 100 MG Tablet PO (08:46)
[2023-02-18] MEDS: APIXABAN 2.5 MG TABLET (WCH) PO (08:46)
[2023-02-18 08:55] VITALS: BP 153/64; PULSE 77; RESP 16; TEMP 36.5; O2SAT 96
--- NOTE | 2023-02-18 08:56 | CASEMGMT ---
Social Work Per physician, pt is ready for dischrage today. Discharge orders faxed to TCU and Hollie updated that pt will be coming to TCU today. SW met with pt and he is agreeable to dc today. Pt states he will notify his . Nursing updated. Disposition: TCU, skilled level of care MARY Richardson
--- NOTE | 2023-02-18 18:12 | PCM.PN.HOSP ---
Reason for Visit Reason for Visit: Diagnoses Other acute postprocedural pain (02/15/23) Other chronic pain (02/15/23) Pain in left knee (02/15/23) Presence of left artificial knee joint (02/15/23) Presence of unspecified artificial knee joint (02/15/23) Subjective Subjective Seen and examined earlier this morning, he appeared medically stable, I talked with orthopedic surgery about his care, we received approval for him to go to TCU for inpatient rehab services. I filled out the patient's paperwork to be transferred to TCU. Objective Data Objective Data Vital Signs: Vital Signs Temp Pulse Resp BP Pulse Ox O2 Del Method O2 Flow Rate 97.7 F L 77 16 153/64 H 96 Room Air 3 02/18/23 08:55 02/18/23 08:55 02/18/23 08:55 02/18/23 08:55 02/18/23 08:55 02/18/23 08:55 02/15/23 15:45 Oxygen Flow Rate (L/min) 3 Oxygen Delivery Method Room Air Weight: 89.3 kg Body Mass Index (BMI) 28.2 Intake & Output: Intake and Output for Last 24 Hours 02/16/23 02/17/23 02/18/23 23:59 23:59 23:59 Intake Total 1075.00 / 1075.00 800 / 800 Output Total 1100 / 1100 2150 / 2550 900 / 900 Balance -25.00 / -25.00 -1350 / -1750 -900 / -900 Lab / Micro Data 02/18/23 05:55 02/16/23 06:25 Labs: Laboratory Results - last 24 hr 02/17/23 20:37: POC Glucose 167 H 02/18/23 05:55: WBC 4.7, RBC 3.82 L, Hgb 10.3 L, Hct 31.2 L, MCV 81.7, MCH 27.0, MCHC 33.0, RDW Std Deviation 41.9, RDW Coeff of [place]mar 14.2, Plt Count 161, MPV 10.5 02/18/23 05:59: POC Glucose 147 H Micro: Microbiology 02/04/23 11:47 Swab (Method) Nasal Screen MRSA/MSSA - Final Physical Exam Narrative alert, oriented x3, no apparent distress and healthy appearing General Appearance: cooperative, well kempt and well developed Orientation / Consciousness: awake, oriented to person, oriented to place and oriented to time HEENT normocephalic, head/scalp atraumatic and moist oral mucous membranes Eyes PERRL, EOMs intact bilaterally and conjunctivae normal Neck supple, no JVD, thyroid normal and no carotid bruits General: trachea midline Resp normal respiratory effort, no retractions, no use of accessory muscles and clear to auscultation bilaterally Auscultation: Negative for rales, rhonchi or wheezes Cardio regular rate, regular rhythm, S1 normal heart sound, S2 normal heart sound, no murmurs, no rub and no gallops GI normal to inspection, nondistended, normoactive bowel sounds, soft to palpation, non-tender and non-distended GI Narrative: Patient has a colostomy over the left mid abdominal area Neuro oriented x3, CN's II-XII intact bilaterally, moves all extremities, no focal motor deficits and no sensory deficits noted Sensorium / Orientation: awake, alert, oriented to person, oriented to place and oriented to time Speech: speech normal Psych affect normal Assessment & Plan Assessment/Plan (1) S/P total knee arthroplasty: QUALIFIERS: Laterality: left Qualified Code(s): Z96.652 - Presence of left artificial knee joint PLAN: Plan 1. Essential hypertension-patient will remain on his present medications, I did the medical reconciliation for the patient to go to TCU along with his TCU paperwork this morning. 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
== END 2023-02-18 09:08 | disposition skilled nursing facility (03) | DRG 470 ==
LOC: ACINP 09:37 → MS3 02-16 06:49
PROVIDERS: Admitting Provider Orthopaedic Surgery; PCP Family Medicine; Referring Provider Orthopaedic Surgery; Visit Provider Orthopaedic Surgery
PROC: 0SRD0JZ Replacement of Left Knee Joint with Synthetic Substitute, Open Approach (ICD-10-PCS; CPT 27447; principal; 2023-02-15 11:30)
DX: M17.12 Unilateral primary osteoarthritis, left knee (principal); E11.9 Type 2 diabetes mellitus without complications; Z93.3 Colostomy status; I10 Essential (primary) hypertension; E78.00 Pure hypercholesterolemia, unspecified; M16.12 Unilateral primary osteoarthritis, left hip; G89.29 Other chronic pain; E66.3 Overweight; Z68.28 Body mass index [BMI] 28.0-28.9, adult; Z79.84 Long term (current) use of oral hypoglycemic drugs; Z79.899 Other long term (current) drug therapy; Z85.46 Personal history of malignant neoplasm of prostate; Z85.048 Personal history of other malignant neoplasm of rectum, rectosigmoid junction, and anus; Z86.16 Personal history of COVID-19
CPT/HCPCS: 36415; 73560; 80048; 82962; 82985; 83036; 83735; 85027; 85610; 85730; 86850; 86900; 86901; 87081; 88305; 88311; 94668; 97110; 97116; 97162; 97166; 97530; 97535; 99252; C1776; J7030; J7120; G0463; J2405; J3475; J3490

== ENCOUNTER 2023-02-18 09:16 | Inpatient (IN) | payer MEDICARE, OTHER, SELFPAY ==
[2023-02-18 09:30] VITALS: BP 153/74; PULSE 82; RESP 16; TEMP 36.6; O2SAT 95; BMI 28.7
[2023-02-18 11:08] LABS: Bedside Glucose 155 mg/dL (74-106)
[2023-02-18] MEDS: Acetaminophen 500 MG Tablet 1000 MG PO ×2 (13:02→21:18)
--- NOTE | 2023-02-18 13:15 | HP.PCM_ITS ---
HPI - General General Date of Admission: 02/18/23 Date of Service: 02/18/23 Chief Complaint: Here for rehabilitation. HPI Narrative VILMA SAM, is a 78 Male who presents with followin02/15/2023 Admit to [facility]. 02/15/[address] Dr[address] Garcia perfomed CT guided robotic assisted left total knee arthroplasty. 02/15/2023 Pain control, bowel regimen, DVT prophylaxis, PT/OT/CM, for left TKA. 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 02/16/2023 Only on Losartan, not Benazepril. PT/OT left TKA. 02/17/2023 No complaints. Eliquis 2.5mg twice daily x 2 weeks for DVT prophylaxis thru 03/01/2023. 02/18/2023 Admit to TCU with debility, here for rehabilitation, strengthening, prior to discharge home with . [facility] Medical History (Updated 02/18/23 @ 13:[address] Tong Carpenter MD) Bladder infection Cancer Chronic pain COVID Diabetes Gout High cholesterol History of anal cancer History of Clostridium difficile infection HTN (hypertension) Indwelling urethral catheter present Non-smoker Torn meniscus Home Medications losartan 100 mg tablet 100 mg PO DAILY bp 06/01/13 [History Last Taken 02/18/23] metoprolol succinate 100 mg tablet,extended release 24 hr 100 mg PO DAILY bp 06/01/13 [History Last Taken 02/18/23] metformin 500 mg tablet,extended release 24 hr 500 mg PO DAILY DIABETES 04/25/20 [History Last Taken 02/18/23] rosuvastatin 5 mg tablet 5 mg PO DAILY CHOLESTEROL 12/16/21 [History Last Taken 02/17/23] amlodipine 10 mg tablet 10 mg PO DAILY BP 01/07/23 [History Last Taken 02/18/23] acetaminophen 500 mg tablet 1,000 mg (2 x 500 mg) PO Q6H PRN pain #100 tabs 02/16/23 [Rx Last Taken Unknown] apixaban 2.5 mg tablet (Eliquis) 2.5 mg PO BID blood thinner #28 tabs 02/16/23 [Rx Last Taken Unknown] oxycodone 5 mg tablet 5 - 10 mg (1 - 2 x 5 mg) PO Q4H PRN pain 7 days #60 tabs 02/16/23 [Rx Last Taken Unknown] acetaminophen 500 mg tablet 1,000 mg (2 x 500 mg) PO Q8 pain #0 tabs 02/18/23 [Rx Last Taken Unknown] apixaban 5 mg tablet (Eliquis) 2.5 mg (1/2 x 5 mg) PO BID blood thinner #0 tabs 02/18/23 [Rx Last Taken 02/18/23] oxycodone 5 mg tablet 5 - 10 mg (1 - 2 x 5 mg) PO Q4H PRN PRN Pain Score 4-10 2 days #10 tabs 02/18/23 [Rx Last Taken 02/18/23] sennosides 8.6 mg-docusate sodium 50 mg tablet (Stool Softener-Stimulant Laxative) 2 tab PO BID bowels #0 tabs 02/18/23 [Rx Last Taken Unknown] Allergy/AdvReac Type Severity Reaction Status Date / Time hydromorphone [From Dilaudid] AdvReac Other Verified 02/15/23 10:18 meperidine [From Demerol] AdvReac Nausea/Vom/ Verified 02/15/23 10:18 Diarrhea Surgical History (Updated 02/18/23 @ 13:[address] Tong Carpenter MD) History of appendectomy History of back surgery History of cholecystectomy History of removal of Port-a-Cath History of total left knee replacement Hx of cataract surgery Hx of colonoscopy Hx of cystoscopy Hx of cystoscopy Hx of cystoscopy Hx of cystoscopy (~01/23/20) Hx of cystoscopy (~05/28/20) Hx of cystoscopy Hx of cystoscopy Hx of cystoscopy Hx of dilation of urethra Hx of left knee surgery Social History (Updated 02/18/23 @ 13:[address] Togn Carpenter MD) household members: spouse Smoking Status: Never smoker alcohol intake: never substance use type: does not use ROS Constitutional Constitutional: Denies chills, fever(s) or weight gain ENT HEENT: Denies headache(s), nasal congestion or nasal discharge Cardiovascular Cardiovascular: Denies chest pain or palpitations Respiratory/Chest Respiratory/Chest: Denies cough, excessive phlegm production or shortness of breath with exertion Gastrointestinal Gastrointestinal: Denies abdominal pain, nausea or vomiting Genitourinary Genitourinary: Denies dysuria Musculoskeletal Musculoskeletal: Denies joint pain or joint swelling Integumentary Integumentary: Denies rash or wounds Neurologic Neurologic: Denies focal weakness, numbness or tingling Psychiatric Psychiatric: Denies anxiety, auditory hallucinations, depression, homicidal ideation or suicidal ideation Vital Signs Vital Signs Vital Signs: 02/18/23 09:30 02/18/23 09:30 Temperature 97.8 F Temperature Source Temporal Pulse Rate 82 Pulse Rhythm Regular Pulse Strength Normal (2+) Respiratory Rate 16 16 Respiratory Effort Normal Non-Labored Respiratory Depth Normal Respiratory Pattern Normal Blood Pressure 153/74 H Blood Pressure Mean 100 Blood Pressure Source Monitor Pulse Ox 95 Oxygen Delivery Method Room Air Room Air Weight Weight: 90.718 kg Body Mass Index (BMI) 28.7 Physical Exam Const alert General Appearance: cooperative HEENT normocephalic Eyes PERRL and EOMs intact bilaterally Neck supple, no JVD and no carotid bruits Resp normal respiratory effort, normal air movement and clear to auscultation bilaterally Cardio regular rate and regular rhythm GI normal to inspection, nondistended, normoactive bowel sounds, non-tender and non-distended Extremity normal capillary refill General Extremity: Negative for edema Skin no rashes or lesions noted General Skin Exam: no breakdown Psych affect normal Appearance: appropriate Results Lab / Micro Data Labs: Laboratory Results - last 24 hr 02/18/23 10:40: POC Glucose 155 H Assessment & Plan Assessment/Plan (1) Debility: (2) Status post total left knee replacement: (3) Diabetes: (4) HTN (hypertension): (5) Hyperlipidemia: (6) History of prostate cancer: (7) History of anal cancer: (8) Bilateral ureteral obstruction: PLAN: Plan 78 year old male with below past medical history hospitalized for left total knee arthroplasty 02/15/[address] Garcia, admitted to TCU with debility, here for rehabilitation, strengthening, prior to discharge home with . * Debility - PT/OT. * Pain - Tylenol 1000mg q8, Oxycodone 5-10mg q4h prn. * Bowel - senna/colace 2 tablets bid, Magnesium citrate 300ml po daily prn. * Adult immunization - Administer pneumonia vaccine, covid19 vaccine, flu vaccine as appropriate. * DVT prophylaxis - Eliquis 2.5mg bid thru 03/04/2023. * Hypertension - Metoprolol succinate 100mg daily, Losartan 100mg daily, Amlodipine 10mg daily. * Hyperlipidemia - Atorvastatin 10mg qhs. * Diabetes Mellitus II - Metformin XR 500mg daily.
--- NOTE | 2023-02-18 13:48 | CASEMGMT ---
Social Work Met with patient to complete initial assessment. Introduced self and role. Verified contacts. Discussed code status. Pt wishes to be full code. Educated to Medicare benefit. Encouraged to contact secondary insurance to ensure copay coverage. Pt's goal is to return home with at [facility]. SW will continue to follow for DC planning. RON ShaikhW
[2023-02-18 16:43] LABS: Bedside Glucose 187 mg/dL (74-106)
[2023-02-18] MEDS: Ondansetron ODT 4 MG Tablet 8 MG PO (18:19)
--- NOTE | 2023-02-18 19:23 | RAD_ITS ---
INDICATION: nausea/vomiting EXAMINATION/TECHNIQUE: X-RAY - XR Abdomen 1 View: 2 image AP abdomen COMPARISON: None FINDINGS: BOWEL GAS PATTERN: Nonspecific air-filled mildly distended stomach. Layering distended loops of small bowel in the upper and central abdomen. Moderate peripheral colonic stool. . FREE AIR: Not well assessed on a supine view. ORGANOMEGALY: Not seen. CALCIFICATIONS: Bilateral double-J ureteral stents with dense projecting over the expected location of the renal pelvis and bladder.] Right lower quadrant surgical clips. No pelvic phleboliths. Prostatic radiation rods. LOWER CHEST: No acute pathology. BONES AND SOFT TISSUES: Severe left hip osteoarthritis with superior femoral acetabular osseous remodeling. Mild right hip osteoarthritis. RAD/Abdomen Single View IMPRESSION: Multiple dilated loops of small bowel in the central abdomen with moderate colonic stool. Findings could be secondary to constipation, generalized dysmotility from abdominal inflammatory process, with distal small bowel obstruction cannot excluded. Consider CT. Electronically Signed: Josr Heaton MD at 23:09 EDT ,
[2023-02-18] MEDS: APIXABAN 2.5 MG TABLET (WCH) PO (21:19)
[2023-02-18] MEDS: Senna/Docusate Sodium 1 Tablet 2 TABLET PO (21:19)
[2023-02-18 21:55] LABS: Bedside Glucose 192 mg/dL (74-106)
[2023-02-18] MEDS: Lactulose 20 GM/30 ML UDC PO (22:59)
[2023-02-19 00:08] LABS: Mucous, Urine 0 SEEN /hpf (<or=2+); Squamous Epithelial Cells - UA 0 SEEN /hpf (0-5)
[2023-02-19 00:12] LABS: Color, Urine Yellow (Yellow); Glucose, Dipstick Normal (Normal); Ketone-Dipstick Negative (Negative); Leukocyte Esterase-Dipstick 500 /ul (Negative); Nitrite-Dipstick Positive (Negative); Occult Blood-Urine 150 /ul (Negative); Protein-Dipstick 500 mg/dl (Negative); Urine Bilirubin Dipstick Negative (Negative); Urine Clarity Sl. Cloudy (Clear); Urine Urobilinogen Normal (Normal)
[2023-02-19 00:18] LABS: Bacteria 3+ /hpf (None Seen); Red Blood Cells-Urine 25-50 SEEN /hpf (0-5); White Blood Cells >100 SEEN /hpf (0-5)
[2023-02-19] MEDS: Ciprofloxacin 250 MG Tablet PO ×2 (01:12→09:11)
[2023-02-19] MEDS: Ondansetron ODT 4 MG Tablet 8 MG PO (05:14)
--- NOTE | 2023-02-19 06:45 | NURSING ---
Pt woke up this am at 0500 and c/o nausea. Has had no stool out of colostomy since lactulose given. Zofran given per order. Pt has had 2 episodes of vomiting green bile emesis. Abd firm with tympanic bowel sounds. Pt devaughn pain, states he is just tired and has nausea. Dr. Carpenter, new order for CT of abdomen and pelvis.
--- NOTE | 2023-02-19 06:45 | NURSING ---
Pt woke up at 0500, c/o nausea, Zofran given per order, cool washcloth given. Pt then had 2 episodes of vomiting green bile. Pt denies pain, states he just feels tired and nauseated. Dr. Carpenter notified, new order for CT abdomen and pelvis and notify him of results. Pt informed of new orders.
[2023-02-19 06:59] LABS: Bedside Glucose 201 mg/dL (74-106)
[2023-02-19 07:58] LABS: Absolute Lymphocyte Count 0.32 X10^3/uL (0.83-4.51); Absolute Neutrophil Count 5.6 X10^3/uL (2.0-7.7); Basophil# 0.02 X10^3/uL; Basophil% 0.3 % (0-1); Hematocrit 37.1 % (40-54); Hemoglobin 11.9 g/dL (13.0-16.5); Lymphocyte # 0.32 X10^3/ul (0.83-4.51); Lymphocyte % 4.8 % (19-41); Mean Corp Hgb Conc 32.1 g/dL (32-36); Mean Corpuscular Hgb 26.9 pg (27.0-32.0); Mean Corpuscular Volume 83.7 fL (80-94); Monocyte# 0.78 X10^3/uL; Monocyte% 11.6 % (0-10); NRBC Flagged by Analyzer 0 % (0-5); Neutrophil # 5.59 X10^3/uL (2.7-7.7); POSITIVE DIFFERENTIAL YES; Platelet Count 246 K/mm3 (150-450); RBC Distribution Width CV 14.3 % (11.6-14.6); RBC Distribution Width SD 43.5 fl (35.1-43.9); Red Blood Count 4.43 M/mm3 (4.6-6.2); White Blood Count 6.7 K/mm3 (4.4-11.0)
[2023-02-19 08:04] LABS: Differential Indicated SCAN CRITERIA MET
[2023-02-19 08:25] LABS: Anion Gap 6 (5-15); BUN 26 mg/dL (7-18); BUN/Creat Ratio 17.4 RATIO (10-20); Calcium,Total 9.7 mg/dL (8.5-10.1); Chloride 106 mmol/L (98-107); Creatinine, Serum 1.49 mg/dL (0.70-1.30); EST Glomerular Filtration Rate 48 mL/min (>60); Est Glom Filt Rate - Afr Amer 58 mL/min (>60); Estimated Creatinine Clearance 40.83 ml/min; Glucose 197 mg/dL (74-106); Potassium 3.7 mmol/L (3.5-5.1); Sodium Level 138 mmol/L (136-145)
--- NOTE | 2023-02-19 08:29 | NURSING ---
PT OFF UNIT TO CT SCAN AT THIS TIME VIA BED
[2023-02-19 08:31] LABS: Differential Comment SCANNED
[2023-02-19] MEDS: metFORMIN (XR) 500 MG Tablet PO (09:09)
[2023-02-19] MEDS: Losartan Potassium 100 MG Tablet PO (09:10)
[2023-02-19] MEDS: APIXABAN 2.5 MG TABLET (WCH) PO (09:11)
[2023-02-19] MEDS: Senna/Docusate Sodium 1 Tablet 2 TABLET PO (09:11)
[2023-02-19 09:12] VITALS: BP 180/85; PULSE 86
[2023-02-19] MEDS: Metoprolol(XL)Succ 100 MG Tablet PO (09:12)
[2023-02-19] MEDS: amLODIPine 10 MG Tablet PO (09:13)
[2023-02-19] MEDS: Atorvastatin Calcium 10 MG Tablet PO (09:13)
[2023-02-19 09:17] VITALS: BP 180/85; PULSE 86
[2023-02-19] MEDS: Tuberculin,Purif.prot.deriv. 50 TU/ML Vial 0.1 ML ID (09:35)
[2023-02-19] MEDS: 0.9% Saline Lock 10 ML Syringe IV (09:41)
[2023-02-19] MEDS: 0.9% Normal Saline (1000mL) 1,000 ML 100 ML IV (09:45)
--- NOTE | 2023-02-19 09:51 | NURSING ---
WALKED IN TO PT ROOM AND FOUND PT BLOOD BAND CUT OFF AND LYING ON PT BED SIDE TABLE. CALLED LAB AND LAB STATED TO THROW OLD AWAY AND IF PT NEEDS ANY BLOOD WE WOULD HAVE TO START ALL OVER AGAIN. RN AWARE.
--- NOTE | 2023-02-19 09:55 | NURSING ---
PT VOMITING CLEAR MUCUS. CHECKED COLOSTOMY AND NOTHING IN IT AT THIS TIME. PT IS VOIDING STRAW/CLEAR URINE. WILL CONTINUE TO MONITOR.
[2023-02-19 11:45] LABS: Bedside Glucose 174 mg/dL (74-106)
--- NOTE | 2023-02-19 11:52 | NURSING ---
DR LIMON UPATED ON CT SCAN OF ABD/PELVIS, NEW ORDER TO SEND PT TO ER.
--- NOTE | 2023-02-19 11:55 | NURSING ---
REPORT CALLED TO NATHAN SCOTT
--- NOTE | 2023-02-19 12:01 | NURSING ---
Notified patients spouse that he is being transferred to the ED.
--- NOTE | 2023-02-19 13:16 | DS.PCM_ITS ---
Providers Date of Admission: 02/18/23 Primary Care Physician: Dr. Rigo Izaguirre MD Reason For Visit: LEFT TOTAL KNEE ARTHROPLASTY Diagnosis Discharge Diagnosis (1) Debility: Status: Acute Code(s): R53.81 - Other malaise (2) Status post total left knee replacement: Status: Acute Code(s): Z96.652 - Presence of left artificial knee joint (3) Diabetes: Status: Acute Code(s): E11.9 - Type 2 diabetes mellitus without complications (4) HTN (hypertension): Status: Chronic Code(s): I10 - Essential (primary) hypertension (5) Hyperlipidemia: Status: Acute Code(s): E78.5 - Hyperlipidemia, unspecified (6) History of prostate cancer: Status: Acute Code(s): Z85.46 - Personal history of malignant neoplasm of prostate (7) History of anal cancer: Status: Acute Code(s): Z85.048 - Personal history of other malignant neoplasm of rectum, rectosigmoid junction, and anus (8) Bilateral ureteral obstruction: Status: Acute Code(s): N13.5 - Crossing vessel and stricture of ureter without hydronephrosis Plan 78 year old male with below past medical history hospitalized for left total knee arthroplasty 02/15/[address] Garcia, admitted to TCU with debility, here for rehabilitation, strengthening, prior to discharge home with . * Debility - PT/OT. * Pain - Tylenol 1000mg q8, Oxycodone 5-10mg q4h prn. * Bowel - senna/colace 2 tablets bid, Magnesium citrate 300ml po daily prn. * Adult immunization - Administer pneumonia vaccine, covid19 vaccine, flu vaccine as appropriate. * DVT prophylaxis - Eliquis 2.5mg bid thru 03/04/2023. * Hypertension - Metoprolol succinate 100mg daily, Losartan 100mg daily, Amlodipine 10mg daily. * Hyperlipidemia - Atorvastatin 10mg qhs. * Diabetes Mellitus II - Metformin XR 500mg daily. Medications at Discharge Home Medications losartan 100 mg tablet 100 mg PO DAILY bp 06/01/13 metoprolol succinate 100 mg tablet,extended release 24 hr 100 mg PO DAILY bp 06/01/13 metformin 500 mg tablet,extended release 24 hr 500 mg PO DAILY DIABETES 04/25/20 rosuvastatin 5 mg tablet 5 mg PO DAILY CHOLESTEROL 12/16/21 amlodipine 10 mg tablet 10 mg PO DAILY BP 01/07/23 acetaminophen 500 mg tablet 1,000 mg (2 x 500 mg) PO Q6H PRN pain #100 tabs apixaban 2.5 mg tablet (Eliquis) 2.5 mg PO BID blood thinner #28 tabs 02/16/23 oxycodone 5 mg tablet 5 - 10 mg (1 - 2 x 5 mg) PO Q4H PRN pain 7 days #60 tabs 02/16/23 acetaminophen 500 mg tablet 1,000 mg (2 x 500 mg) PO Q8 pain #0 tabs 02/18/23 apixaban 5 mg tablet (Eliquis) 2.5 mg (1/2 x 5 mg) PO BID blood thinner #0 tabs 02/18/23 oxycodone 5 mg tablet 5 - 10 mg (1 - 2 x 5 mg) PO Q4H PRN PRN Pain Score 4-10 2 days #10 tabs 02/18/23 sennosides 8.6 mg-docusate sodium 50 mg tablet (Stool Softener-Stimulant Laxative) 2 tab PO BID bowels #0 tabs 02/18/23 Hospital Course Operations total knee replacement (Left.) Procedures None Summary of Care Provided Minutes Spent on Discharge: 15 Hospital Course: 78 year old male with below past medical history hospitalized for left total knee arthroplasty 02/15/[address] Garcia, admitted to TCU with debility, here for rehabilitation, strengthening, prior to discharge home with . 02/19/2023 CT abdomen/pelvis shows partial small bowel obstruction. Discharge to [facility] 02/19/2023 for evaluation, possible admission to hospital. Weight / BMI Weight Weight: 90.718 kg Body Mass Index (BMI) 28.7 ABG / Lab / Microbiology Data 02/19/23 07:45 02/19/23 07:45 Laboratory: Laboratory Results - last 24 hr 02/18/23 16:11: POC Glucose 187 H 02/18/23 21:37: POC Glucose 192 H 02/18/23 23:58: Urine Color Yellow, Urine Clarity Sl. Cloudy, Urine pH 6.0, Ur Specific [place] 1.020, Urine Protein 500 H, Urine Glucose (UA) Normal, Urine Ketones Negative, Urine Occult Blood 150 H, Urine Nitrite Positive H, Urine Bilirubin Negative, Urine Urobilinogen Normal, Ur Leukocyte Esterase 500 H, Urine RBC 25-50 SEEN, Urine WBC >100 SEEN, Ur Squamous Epith Cells 0 SEEN, Urine Bacteria 3+, Urine Mucus 0 SEEN 02/19/23 06:29: POC Glucose 201 H 02/19/23 07:45: WBC 6.7, RBC 4.43 L, Hgb 11.9 L, Hct 37.1 L, MCV 83.7, MCH 26.9 L, MCHC 32.1, RDW Std Deviation 43.5, RDW Coeff of [place] 14.3, Plt Count 246, MPV 10.0, Immature Gran % (Auto) 0.300, Neut % (Auto) 83.0 H, Lymph % (Auto) 4.8 L, Foster % (Auto) 11.6 H, Eos % (Auto) 0.0, Baso % (Auto) 0.3, Absolute Neuts (auto) 5.6, Absolute Lymphs (auto) 0.32 L, Nucleated RBC % 0, Differential Comment S CANNED, Sodium 138, Potassium 3.7, Chloride 106, Carbon Dioxide 26.0, Anion Gap 6, BUN 26 H, Creatinine 1.49 H, Estim Creat Clear Calc 40.83, Est GFR (MDRD) Af Amer 58 L, Est GFR (MDRD) Non-Af 48 L, BUN/Creatinine Ratio 17.4, Glucose 197 H, Calcium 9.7 02/19/23 11:12: POC Glucose 174 H Radiography Diagnostic Testing: Radiology Impression KUB X-Ray 02/18/23 19:23 IMPRESSION: Multiple dilated loops of small bowel in the central abdomen with moderate colonic stool. Findings could be secondary to constipation, generalized dysmotility from abdominal inflammatory process, with distal small bowel obstruction cannot excluded. Consider CT. Electronically Signed: Josr Heaton MD at 23:09 EDT , D/C Instructions Discharge Activity: Return to Normal Activity and Use Walker Weight Bearing Status: Weight bearing as tolerated Call your doctor if you observe: Fever of 101 or Higher, Inability to urinate, Inability to have a bowel movement, Shortness of breath, Dizziness, Fainting spells, Swelling in the ankles, Chest pain and Uncontrolled pain Additional Instructions: Discharge to [facility] Department 02/19/2023 for evaluation, possible admission to hospital. Please Follow Up With: Jordan Garcia, DO Meaningful Use Info Meaningful Use Diagnoses (Choose all that apply): None applicable Discharge Plan Admission Admit Date/Time: 02/18/23 09:16 Primary Reason for Your Visit: Debility. Attending Provider: Tong Carpenter Chi Primary Care Provider: Rigo Izaguirre Instructions Additional Instructions / Restrictions: Discharge to [facility] 02/19/2023 for evaluation, possible admission to hospital. Discharge Orders/Prescriptions Prescriptions: No Action amlodipine 10 mg tablet 10 mg PO DAILY metoprolol succinate 100 MG tablet 100 mg PO DAILY Patient Comments: BP losartan 100 MG tablet 100 mg PO DAILY Patient Comments: BP metformin 500 MG tablet 500 mg PO DAILY rosuvastatin 5 mg tablet 5 mg PO DAILY acetaminophen [acetaminophen] 500 mg tablet 1,000 mg PO Q6H PRN Qty: 100 0RF Eliquis 2.5 mg tablet 2.5 mg PO BID Qty: 28 0RF Patient Comments: 2.5MG PO BID oxycodone 5 mg tablet 5 - 10 mg PO Q4H PRN (Reason: pain) 7 Days Qty: 60 0RF acetaminophen 500 mg Tablet 1,000 mg PO Q8 Qty: 0 0RF Eliquis 5 mg Tablet 2.5 mg PO BID Qty: 0 0RF Patient Comments: 2.5MGPO BID oxycodone 5 mg Tablet 5 - 10 mg PO Q4H PRN PRN (Reason: Pain Score 4-10) 2 Days Qty: 10 0RF sennosides-docusate sodium [Stool Softener-Stimulant Laxat] 8.6-50 mg Tablet 2 tab PO BID Qty: 0 0RF Referrals / Follow Up: Rigo Izaguirre MD [Primary Care Provider] - Disposition Disposition (needs filled in before D/C Order can be placed): [facility]
--- NOTE | 2023-02-19 13:18 | NURSING ---
Ari for spouse to return call to [facility]
--- NOTE | 2023-03-02 08:16 | MDS.RN ---
Information for the mds was obtained from review of the clinical record, interview of resident, staff, and direct observation of resident's care.
== END 2023-02-19 13:16 | disposition short-term general hospital (02) | DRG 560 ==
LOC: TCU 09:20
PROVIDERS: Admitting Provider Family Medicine Geriatric Medicine; PCP Family Medicine; Referring Provider Family Medicine Geriatric Medicine; Visit Provider Family Medicine Geriatric Medicine
DX: Z47.1 Aftercare following joint replacement surgery (principal); K56.600 Partial intestinal obstruction, unspecified as to cause; E11.9 Type 2 diabetes mellitus without complications; Z93.3 Colostomy status; I10 Essential (primary) hypertension; E78.00 Pure hypercholesterolemia, unspecified; N13.5 Crossing vessel and stricture of ureter without hydronephrosis; Z79.01 Long term (current) use of anticoagulants; G89.29 Other chronic pain; Z79.84 Long term (current) use of oral hypoglycemic drugs; Z96.652 Presence of left artificial knee joint; Z79.899 Other long term (current) drug therapy
CPT/HCPCS: 36415; 74018; 80048; 81001; 82962; 85025; 87077; 87086; 87088; 87186; 97110; 97162; 97166; J7030; A4216

== ENCOUNTER 2023-02-19 12:05 | Inpatient (IN) | payer MEDICARE, OTHER, SELFPAY ==
[2023-02-19 12:07] VITALS: BP 179/85; PULSE 91; RESP 16; TEMP 36.7; O2SAT 96; BMI 28.0
--- NOTE | 2023-02-19 12:15 | EDS_ITS ---
<Statement entered by Rigo Mann MD - 02/19/23 20:41> I have personally performed a face to face assessment of the patient and have reviewed the EWA Note. HPI History of Present Illness Chief Complaint: Nausea/Vomiting Narrative Narrative: 78-year-old male was sent to the ED from TCU for nausea and vomiting. He was admitted on and had left total knee arthroplasty. He developed nausea and vomiting over the last few days. He has a colostomy due to remote anal cancer (surgery in 2013 at [facility]). He has not been able to keep anything down over the last few days and had decreased output in the colostomy bag. Denies abdominal pain. CT done this morning in the TCU shows partial early distal small bowel obstruction. Patient denies history of obstruction. Of note he was also started on Cipro x1 day for UTI. [facility] Medical History (Updated 02/19/23 @ 12:41 by DARIUS Henderson) Bladder infection Cancer Chronic pain COVID Diabetes Gout High cholesterol History of anal cancer History of Clostridium difficile infection HTN (hypertension) Indwelling urethral catheter present Non-smoker Torn meniscus Home Medications losartan 100 mg tablet 100 mg PO DAILY bp 06/01/13 [History Last Taken 02/18/23] metoprolol succinate 100 mg tablet,extended release 24 hr 100 mg PO DAILY bp 06/01/13 [History Last Taken 02/18/23] metformin 500 mg tablet,extended release 24 hr 500 mg PO DAILY DIABETES 04/25/20 [History Last Taken 02/18/23] rosuvastatin 5 mg tablet 5 mg PO DAILY CHOLESTEROL 12/16/21 [History Last Taken 02/17/23] amlodipine 10 mg tablet 10 mg PO DAILY BP 01/07/23 [History Last Taken 02/18/23] acetaminophen 500 mg tablet 1,000 mg (2 x 500 mg) PO Q6H PRN pain #100 tabs 02/16/23 [Rx Last Taken Unknown] apixaban 2.5 mg tablet (Eliquis) 2.5 mg PO BID blood thinner #28 tabs 02/16/23 [Rx Last Taken Unknown] oxycodone 5 mg tablet 5 - 10 mg (1 - 2 x 5 mg) PO Q4H PRN pain 7 days #60 tabs 02/16/23 [Rx Last Taken Unknown] acetaminophen 500 mg tablet 1,000 mg (2 x 500 mg) PO Q8 pain #0 tabs 02/18/23 [Rx Last Taken Unknown] apixaban 5 mg tablet (Eliquis) 2.5 mg (1/2 x 5 mg) PO BID blood thinner #0 tabs 02/18/23 [Rx Last Taken 02/18/23] oxycodone 5 mg tablet 5 - 10 mg (1 - 2 x 5 mg) PO Q4H PRN PRN Pain Score 4-10 2 days #10 tabs 02/18/23 [Rx Last Taken 02/18/23] sennosides 8.6 mg-docusate sodium 50 mg tablet (Stool Softener-Stimulant Laxative) 2 tab PO BID bowels #0 tabs 02/18/23 [Rx Last Taken Unknown] Allergy/AdvReac Type Severity Reaction Status Date / Time hydromorphone [From Dilaudid] AdvReac Other Verified 02/15/23 10:18 meperidine [From Demerol] AdvReac Nausea/Vom/ Verified 02/15/23 10:18 Diarrhea Surgical History History of appendectomy History of back surgery History of cholecystectomy History of removal of Port-a-Cath History of total left knee replacement Hx of cataract surgery Hx of colonoscopy Hx of cystoscopy Hx of cystoscopy Hx of cystoscopy Hx of cystoscopy (~01/23/20) Hx of cystoscopy (~05/28/20) Hx of cystoscopy Hx of cystoscopy Hx of cystoscopy Hx of dilation of urethra Hx of left knee surgery Social History (Updated 02/18/23 @ 13:[address] Tong Carpenter MD) household members: spouse Smoking Status: Never smoker alcohol intake: never substance use type: does not use ROS ROS ED ROS Narrative Constitutional: Negative for fever, chills, malaise. Eyes: Negative for visual change. ENT: Negative for sore throat, ear pain, rhinorrhea. CVS: Negative for palpitations, chest pain, syncope. Respiratory: Negative for shortness of breath, cough, orthopnea. GI: Negative for abdominal pain, nausea, vomiting, diarrhea, constipation, melena, hematochezia. : Negative for dysuria, hematuria or frequency. Neuro: Negative for headache, motor/sensory dysfunction. Skin: Negative for rash, abscess, or wound. Musc: Negative for joint pain, swelling, trauma. Heme: Negative for easy bruising, bleeding, lymphadenopathy. EXAM Physical Exam Narrative Exam Narrative: CONST: Patient sitting in no acute distress. EYES: Normal inspection. ENT: Normal inspection, dry mucous membranes. NECK: Normal inspection. RESP: No respiratory distress, CTAB. CVS: Regular rate and rhythm, no murmur, no gallop. ABD: Soft with left upper quadrant tenderness, no guarding or rebound, nondistended. Colostomy bag left lower abdomen intact. SKIN: Left knee arthroplasty incision is stapled, slight erythema and warmth on the medial knee/thigh. EXTREMITIES: Normal appearance, no pedal edema. NEURO: Oriented x4. PSYCH: Normal affect. Const Vital Signs: 02/19/23 12:07 Temperature 98.1 F Temperature Source Oral Pulse Rate 91 Respiratory Rate 16 Blood Pressure 179/85 H Blood Pressure Mean 116 Pulse Ox 96 Oxygen Delivery Method Room Air MDM MDM MDM Narrative Medical decision making narrative: 78-year-old male is POD #4 for left knee arthroplasty presenting with few days of nausea vomiting and decreased output from his colostomy bag. He is dry heaving but appears nontoxic. Vital signs stable. He has dry mucous membranes and left-sided abdominal tenderness with no peritoneal signs. I reviewed blood work done this morning in the TCU. White count is 6.7, hemoglobin 11.9, normal electrolytes with creatinine of 1.49. No prior for comparison. CT shows early partial SBO. I consulted general surgery and Dr. Michele evaluated at bedside and recommended NG tube placement and admission to the medicine team. Discharge Plan Triage Chief Complaint: Nausea/Vomiting ED Midlevel Provider: Kita Winkler ED Provider: Rigo Mann Dx/Rx/DC Orders Clinical Impression: Nausea and vomiting, Partial small bowel obstruction Prescriptions: No Action amlodipine 10 mg tablet 10 mg PO DAILY metoprolol succinate 100 MG tablet 100 mg PO DAILY Patient Comments: BP losartan 100 MG tablet 100 mg PO DAILY Patient Comments: BP metformin 500 MG tablet 500 mg PO DAILY rosuvastatin 5 mg tablet 5 mg PO DAILY acetaminophen [acetaminophen] 500 mg tablet 1,000 mg PO Q6H PRN Qty: 100 0RF Eliquis 2.5 mg tablet 2.5 mg PO BID Qty: 28 0RF oxycodone 5 mg tablet 5 - 10 mg PO Q4H PRN (Reason: pain) 7 Days Qty: 60 0RF acetaminophen 500 mg Tablet 1,000 mg PO Q8 Qty: 0 0RF Eliquis 5 mg Tablet 2.5 mg PO BID Qty: 0 0RF oxycodone 5 mg Tablet 5 - 10 mg PO Q4H PRN PRN (Reason: Pain Score 4-10) 2 Days Qty: 10 0RF sennosides-docusate sodium [Stool Softener-Stimulant Laxat] 8.6-50 mg Tablet 2 tab PO BID Qty: 0 0RF Primary Care Provider: Rigo Izaguirre Referrals: Rigo Izaguirre MD [Primary Care Provider] -
[2023-02-19] MEDS: 0.9% Normal Saline (1000mL) 1,000 ML 999 ML IV (12:20)
[2023-02-19] MEDS: Ondansetron 4 MG/2 ML Vial IV ×3 (12:22→17:36)
[2023-02-19] MEDS: Oxymetazoline 0.05% 1 SPRAY SPRAY.BTL 2 SPRAY NASAL (12:42)
--- NOTE | 2023-02-19 12:51 | RAD_ITS ---
EXAM: XR ABDOMEN, 1 VIEW CLINICAL INDICATION: NG Insertion TECHNIQUE: Frontal supine view of the abdomen/pelvis. COMPARISON: No relevant prior studies available. FINDINGS: GASTROINTESTINAL TRACT: Incompletely evaluated. ORGANS: Cholecystectomy clips are in place. BONES/JOINTS: No acute abnormality. TUBES, LINES AND DEVICES: Endogastric tube extends into the proximal stomach with proximal sidehole at the level of the distal esophagus. Recommend further advancing the tube. Residual contrast material noted within the renal collecting system bilaterally. Partially visualized bilateral ureteral stent catheters. RAD/Abdomen Single View (Portable) IMPRESSION: Recommend further insertion of the endogastric tube. Electronically Signed: Amol Whitley MD at 13:17 EDT ,
[2023-02-19 12:52] LABS: Absolute Lymphocyte Count 0.38 X10^3/uL (0.83-4.51); Absolute Neutrophil Count 4.2 X10^3/uL (2.0-7.7); Basophil# 0.01 X10^3/uL; Basophil% 0.2 % (0-1); Eosinophil# 0.01 X10^3/uL; Eosinophils% 0.2 % (0-5); Hematocrit 34.3 % (40-54); Hemoglobin 11.1 g/dL (13.0-16.5); Lymphocyte # 0.38 X10^3/ul (0.83-4.51); Lymphocyte % 7.1 % (19-41); Mean Corp Hgb Conc 32.4 g/dL (32-36); Mean Corpuscular Hgb 26.8 pg (27.0-32.0); Mean Corpuscular Volume 82.9 fL (80-94); Mean Platelet Vol. 10.3 fl (6.2-12.0); Monocyte# 0.74 X10^3/uL; Monocyte% 13.9 % (0-10); NRBC Flagged by Analyzer 0 % (0-5); Neutrophil # 4.17 X10^3/uL (2.7-7.7); Neutrophil % 78.2 % (47-70); POSITIVE DIFFERENTIAL YES; Platelet Count 224 K/mm3 (150-450); RBC Distribution Width CV 14.3 % (11.6-14.6); RBC Distribution Width SD 43.4 fl (35.1-43.9); Red Blood Count 4.14 M/mm3 (4.6-6.2); White Blood Count 5.3 K/mm3 (4.4-11.0)
[2023-02-19 12:53] LABS: Differential Indicated SCAN CRITERIA MET
[2023-02-19 13:23] LABS: Anion Gap 7 (5-15); BUN 28 mg/dL (7-18); Calcium,Total 9.4 mg/dL (8.5-10.1); Chloride 106 mmol/L (98-107); Creatinine, Serum 1.47 mg/dL (0.70-1.30); EST Glomerular Filtration Rate 49 mL/min (>60); Est Glom Filt Rate - Afr Amer 59 mL/min (>60); Estimated Creatinine Clearance 41.38 ml/min; Glucose 185 mg/dL (74-106); Potassium 3.6 mmol/L (3.5-5.1); Sodium Level 139 mmol/L (136-145)
[2023-02-19 13:38] LABS: Differential Comment SCANNED
--- NOTE | 2023-02-19 14:02 | ED.RN ---
NG ADVANCED PER DR ORDER. CALLED FOR REPEAT XRAY TO CONFIRM PLACEMENT
--- NOTE | 2023-02-19 14:03 | CON.PCM.SX_ITS ---
Assessment & Plan Assessment/Plan (1) Partial small bowel obstruction: PLAN: Patient has extensive surgical history and likely has adhesions causing a partial small bowel obstruction. I will have the emergency room place an NG tube. Continue NG suction for 24 hours to decompress and then I will likely order some imaging with contrast tomorrow. Jose Michele MD Pager: [facility] [address] [place] [address], [address] [place] [address] Office: HPI Consult Data Date of Consult: 02/19/23 HPI Narrative HPI Narrative: VILMA SAM, is a 78 M who presents as a transfer from the TCU. Patient had orthopedic surgery 4 days ago. The patient started having decreased output from his colostomy and increased nausea yesterday. KUB and CT scan showed a partial small bowel obstruction so he was sent to the emergency room. Patient has never had a bowel obstruction in the past. He denies fevers or chills. He does not have any pain in his abdomen only nausea and decreased stool output. [facility] Medical History (Updated 02/19/23 @ 12:41 by DARIUS Henderson) Bladder infection Cancer Chronic pain COVID Diabetes Gout High cholesterol History of anal cancer History of Clostridium difficile infection HTN (hypertension) Indwelling urethral catheter present Non-smoker Torn meniscus Home Medications losartan 100 mg tablet 100 mg PO DAILY bp 06/01/13 [History Last Taken 02/18/23] metoprolol succinate 100 mg tablet,extended release 24 hr 100 mg PO DAILY bp 06/01/13 [History Last Taken 02/18/23] metformin 500 mg tablet,extended release 24 hr 500 mg PO DAILY DIABETES 04/25/20 [History Last Taken 02/18/23] rosuvastatin 5 mg tablet 5 mg PO DAILY CHOLESTEROL 12/16/21 [History Last Taken 02/17/23] amlodipine 10 mg tablet 10 mg PO DAILY BP 01/07/23 [History Last Taken 02/18/23] acetaminophen 500 mg tablet 1,000 mg (2 x 500 mg) PO Q6H PRN pain #100 tabs 02/16/23 [Rx Last Taken Unknown] apixaban 2.5 mg tablet (Eliquis) 2.5 mg PO BID blood thinner #28 tabs 02/16/23 [Rx Last Taken 02/18/23] oxycodone 5 mg tablet 5 - 10 mg (1 - 2 x 5 mg) PO Q4H PRN pain 7 days #60 tabs 02/16/23 [Rx Last Taken Unknown] acetaminophen 500 mg tablet 1,000 mg (2 x 500 mg) PO Q8 pain #0 tabs 02/18/23 [Rx Last Taken Unknown] apixaban 5 mg tablet (Eliquis) 2.5 mg (1/2 x 5 mg) PO BID blood thinner #0 tabs 02/18/23 [Rx Last Taken 02/18/23] oxycodone 5 mg tablet 5 - 10 mg (1 - 2 x 5 mg) PO Q4H PRN PRN Pain Score 4-10 2 days #10 tabs 02/18/23 [Rx Last Taken 02/18/23] sennosides 8.6 mg-docusate sodium 50 mg tablet (Stool Softener-Stimulant Laxative) 2 tab PO BID bowels #0 tabs 02/18/23 [Rx Last Taken Unknown] Allergy/AdvReac Type Severity Reaction Status Date / Time hydromorphone [From Dilaudid] AdvReac Other Verified 02/15/23 10:18 meperidine [From Demerol] AdvReac Nausea/Vom/ Verified 02/15/23 10:18 Diarrhea Surgical History History of appendectomy History of back surgery History of cholecystectomy History of removal of Port-a-Cath History of total left knee replacement Hx of cataract surgery Hx of colonoscopy Hx of cystoscopy Hx of cystoscopy Hx of cystoscopy Hx of cystoscopy (~01/23/20) Hx of cystoscopy (~05/28/20) Hx of cystoscopy Hx of cystoscopy Hx of cystoscopy Hx of dilation of urethra Hx of left knee surgery Social History (Updated 02/18/23 @ 13:[address] Tong Carpenter MD) household members: spouse Smoking Status: Never smoker alcohol intake: never substance use type: does not use ROS Constitutional Constitutional: Reports anorexia; Denies fatigue or fever(s) Eyes Eyes: Denies blurry vision ENT HEENT: Denies abnormal hearing Cardiovascular Cardiovascular: Denies chest pain Respiratory/Chest Respiratory/Chest: Denies cough or dyspnea Gastrointestinal Gastrointestinal: Reports nausea; Denies abdominal pain or vomiting Genitourinary Genitourinary: Denies change in urinary stream Musculoskeletal Musculoskeletal: Denies abnormal gait Integumentary Integumentary: Denies jaundice Physical Exam Const alert and oriented x3 HEENT normocephalic Eyes PERRL Resp normal respiratory effort Cardio Rate: regular rate Rhythm: regular rhythm GI soft to palpation and non-tender Inspection: abdominal distention Extremity normal to inspection Lab / Micro Data 02/19/23 12:22 02/19/23 12:22 Labs: Laboratory Results - last 24 hr 02/19/23 12:22: WBC 5.3, RBC 4.14 L, Hgb 11.1 L, Hct 34.3 L, MCV 82.9, MCH 26.8 L, MCHC 32.4, RDW Std Deviation 43.4, RDW Coeff of [place] 14.3, Plt Count 224, MPV 10.3, Immature Gran % (Auto) 0.400, Neut % (Auto) 78.2 H, Lymph % (Auto) 7.1 L, [place] % (Auto) 13.9 H, Eos % (Auto) 0.2, Baso % (Auto) 0.2, Absolute Neuts (auto) 4.2, Absolute Lymphs (auto) 0.38 L, Nucleated RBC % 0, Differential Comment SCANNED, Sodium 139, Potassium 3.6, Chloride 106, Carbon Dioxide 26.0, Anion Gap 7, BUN 28 H, Creatinine 1.47 H, Estim Creat Clear Calc 41.38, Est GFR (MDRD) Af Amer 59 L, Est GFR (MDRD) Non-Af 49 L, BUN/Creatinine Ratio 19.0, Glucose 185 H, Calcium 9.4 Radiology Impression KUB X-Ray 02/19/23 12:51 IMPRESSION: Recommend further insertion of the endogastric tube. Electronically Signed: Amol Whitley MD at 13:17 EDT ,
[2023-02-19] MEDS: Morphine 4 MG/ML Syringe IV (14:15)
--- NOTE | 2023-02-19 14:28 | RAD_ITS ---
EXAM: XR ABDOMEN, 1 VIEW CLINICAL INDICATION: ng advanced -- KUB with both diaphragms for NG/OG Verification TECHNIQUE: Frontal supine view of the abdomen/pelvis. COMPARISON: No relevant prior studies available. FINDINGS: GASTROINTESTINAL TRACT: Distended bowel loops incompletely evaluated on this exam. ORGANS: No organomegaly. BONES/JOINTS: No acute abnormality. TUBES, LINES AND DEVICES: Endogastric tube extends into the proximal stomach with proximal sidehole at the level of the esophagogastric junction. Recommend further advancing the tube. Residual contrast material within the renal collecting system. Bilateral ureteral stent catheters partially visualized. RAD/Abdomen Single View (Portable) IMPRESSION: Recommend further advancing the endogastric tube. Electronically Signed: Amol Whitley MD at 15:39 EDT ,
[2023-02-19 16:05] VITALS: BMI 28.7
[2023-02-19 16:22] VITALS: BP 203/74; PULSE 84; RESP 16; TEMP 36.4; O2SAT 95
[2023-02-19] MEDS: 0.9% Normal Saline (1000mL) 1,000 ML 125 ML IV (16:42)
[2023-02-19] MEDS: 0.9% Saline Lock 10 ML Syringe IV ×2 (16:43→19:32)
[2023-02-19] MEDS: Pantoprazole Sodium 40 MG in 0.9% Normal Saline (100mL MB+) 100 ML 330 MG IV (16:53)
--- NOTE | 2023-02-19 17:18 | NURSING ---
Recent KUB states to advance 4-5cm so this room service waiter at this time. Radiology called, order is placed and aware of order.
[2023-02-19] MEDS: Enalaprilat 1.25 MG/ML Vial 2.5 MG IV (17:20)
--- NOTE | 2023-02-19 17:25 | RAD_ITS ---
EXAM: XR ABDOMEN, 1 VIEW CLINICAL INDICATION: placement of NG tube TECHNIQUE: Frontal supine view of the abdomen/pelvis. COMPARISON: Abdominal radiograph earlier on the same date. FINDINGS: LOWER THORAX: No acute pathology. GASTROINTESTINAL TRACT: Nonspecific bowel gas pattern. Non-obstructive. No bowel or stomach distention. ORGANS: Bilateral ureteral stents partially visualized with hydronephrotic left kidney and contrast identified in the bilateral collecting systems greater on the left. No organomegaly. No abnormal calcifications. BONES/JOINTS: No acute pathology. SOFT TISSUES: Surgical clips in the right upper quadrant. TUBES, LINES AND DEVICES: Enteric tube tip and side-port below the level of the GE junction. RAD/Abdomen Single View IMPRESSION: 1. Enteric tube tip and side-port below the level of the GE junction. 2. Bilateral ureteral stents partially visualized with hydronephrotic left kidney and contrast identified in the bilateral collecting systems greater on the left. Electronically Signed: Ramiro Childress DO at 18:52 EDT ,
[2023-02-19] MEDS: Heparin Injection (Vial) 5,000 UNIT/ML VIAL 5000 UNIT SC ×2 (17:33→22:34)
[2023-02-19 17:50] VITALS: BP 187/78; PULSE 87
--- NOTE | 2023-02-19 18:31 | PCM.HP.STD ---
HPI - General General Date of Admission: 02/19/23 Date of Service: 02/19/23 Chief Complaint: Nausea and vomiting, abdominal pain, abdominal distention HPI Narrative VILMA SAM, is a 78 M who presents to the emergency room at [facility] after being transported from the TCU unit where he was undergoing rehab services, he was transferred for evaluation of abdominal distention, abdominal pain, and persistent nausea and vomiting. Patient recently underwent a total left knee replacement, his past medical history includes a colostomy due to anal cancer. Labs obtained in the emergency room included a CBC which showed a normal white blood cell count, hemoglobin was 11.1, chemistry panel was remarkable for a creatinine of 1.47, a BUN of 28, and a glucose of 185. CT of the abdomen and pelvis performed earlier this morning when the patient was in TCU showed a partial early distal small bowel obstruction, I distended biliary tree without evidence of an obstructing stone or mass, and surgical changes of distal colectomy and proctectomy. General surgery was contacted (Dr. Michele) he recommended insertion of an NG tube and admission of the patient to the hospital. Patient was admitted to [place] [address] for small bowel obstruction. [facility] Medical History (Updated 02/19/23 @ 12:41 by DARIUS Henderson) Bladder infection Cancer Chronic pain COVID Diabetes Gout High cholesterol History of anal cancer History of Clostridium difficile infection HTN (hypertension) Indwelling urethral catheter present Non-smoker Torn meniscus Home Medications losartan 100 mg tablet 100 mg PO DAILY bp 06/01/13 [History Last Taken 02/18/23] metoprolol succinate 100 mg tablet,extended release 24 hr 100 mg PO DAILY bp 06/01/13 [History Last Taken 02/18/23] metformin 500 mg tablet,extended release 24 hr 500 mg PO DAILY DIABETES 04/25/20 [History Last Taken 02/18/23] rosuvastatin 5 mg tablet 5 mg PO DAILY CHOLESTEROL 12/16/21 [History Last Taken 02/17/23] amlodipine 10 mg tablet 10 mg PO DAILY BP 01/07/23 [History Last Taken 02/18/23] acetaminophen 500 mg tablet 1,000 mg (2 x 500 mg) PO Q6H PRN pain #100 tabs 02/16/23 [Rx Last Taken Unknown] apixaban 2.5 mg tablet (Eliquis) 2.5 mg PO BID blood thinner #28 tabs 02/16/23 [Rx Last Taken 02/18/23] oxycodone 5 mg tablet 5 - 10 mg (1 - 2 x 5 mg) PO Q4H PRN pain 7 days #60 tabs 02/16/23 [Rx Last Taken Unknown] acetaminophen 500 mg tablet 1,000 mg (2 x 500 mg) PO Q8 pain #0 tabs 02/18/23 [Rx Last Taken Unknown] apixaban 5 mg tablet (Eliquis) 2.5 mg (1/2 x 5 mg) PO BID blood thinner #0 tabs 02/18/23 [Rx Last Taken 02/18/23] oxycodone 5 mg tablet 5 - 10 mg (1 - 2 x 5 mg) PO Q4H PRN PRN Pain Score 4-10 2 days #10 tabs 02/18/23 [Rx Last Taken 02/18/23] sennosides 8.6 mg-docusate sodium 50 mg tablet (Stool Softener-Stimulant Laxative) 2 tab PO BID bowels #0 tabs 02/18/23 [Rx Last Taken Unknown] Allergy/AdvReac Type Severity Reaction Status Date / Time hydromorphone [From Dilaudid] AdvReac Other Verified 02/15/23 10:18 meperidine [From Demerol] AdvReac Nausea/Vom/ Verified 02/15/23 10:18 Diarrhea Surgical History History of appendectomy History of back surgery History of cholecystectomy History of removal of Port-a-Cath History of total left knee replacement Hx of cataract surgery Hx of colonoscopy Hx of cystoscopy Hx of cystoscopy Hx of cystoscopy Hx of cystoscopy (~01/23/20) Hx of cystoscopy (~05/28/20) Hx of cystoscopy Hx of cystoscopy Hx of cystoscopy Hx of dilation of urethra Hx of left knee surgery Social History (Updated 02/18/23 @ 13:[address] Tong Carpenter MD) household members: spouse Smoking Status: Never smoker alcohol intake: never substance use type: does not use ROS Constitutional Constitutional: Denies anorexia, change in weight, chills, fatigue, fever(s), malaise, night sweats or weakness Eyes Eyes: Denies blurry vision, change in vision, discharge from eye(s) or eye pain Cardiovascular Cardiovascular: Denies chest pain, claudication, dyspnea on exertion, edema, lightheadedness or palpitations Respiratory/Chest Respiratory/Chest: Denies cough, excessive phlegm production, hemoptysis, productive cough, shortness of breath at rest or shortness of breath with exertion Gastrointestinal Gastrointestinal: Reports abdominal pain, nausea and vomiting; Denies constipation, diarrhea, hematemesis, hematochezia or melena Genitourinary Genitourinary: Denies dysuria, hematuria, urinary frequency, urinary hesitancy, urinary incontinence or urinary urgency Musculoskeletal Musculoskeletal: Reports joint pain; Denies back pain, joint stiffness, joint swelling, myalgias or neck pain Neurologic Neurologic: Denies abnormal gait, abnormal speech, dizziness, focal weakness, headache(s), loss of vision, numbness, other visual disturbances, paresthesias, syncope or tingling Psychiatric Psychiatric: Denies anxiety, cognitive impairment, depression, irritability, mood swings or suicidal ideation Endocrine Endocrinology: Denies change in body appearance, cold intolerance, excessive sweating, heat intolerance, polydipsia or polyuria Hematologic/Lymphatic Hematologic/Lymphatic: Denies none, anemia, easy bleeding, easy bruising or lymphadenopathy Allergic/Immunologic Allergic/Immunologic: Denies rhinitis, urticaria, eczemia or asthma Vital Signs Vital Signs Vital Signs: 02/19/23 12:07 02/19/23 16:22 02/19/23 17:50 Temperature 98.1 F 97.6 F L Temperature Source Oral Oral Pulse Rate 91 84 87 Respiratory Rate 16 16 Blood Pressure 179/85 H 203/74 H Blood Pressure [BP] 187/78 H Blood Pressure Mean 116 117 Blood Pressure Mean [BP] 114 Blood Pressure Source Monitor Blood Pressure Source [BP] Monitor Blood Pressure Position Semi-Fowlers Blood Pressure Position [BP] Semi-Fowlers Blood Pressure Location Left Arm Blood Pressure Location [BP] Left Forearm Pulse Ox 96 95 Oxygen Delivery Method Room Air Room Air Weight Weight: 90.718 kg Body Mass Index (BMI) 28.7 Physical Exam Const alert, oriented x3, no apparent distress and average body habitus General Appearance: cooperative, well kempt and well developed Orientation / Consciousness: awake, oriented to person, oriented to place and oriented to time HEENT normocephalic, head/scalp atraumatic, hearing grossly normal bilaterally and moist oral mucous membranes Eyes PERRL, EOMs intact bilaterally and conjunctivae normal Neck supple, no JVD, thyroid normal and no carotid bruits General: trachea midline Resp normal respiratory effort, no retractions, no use of accessory muscles and clear to auscultation bilaterally Auscultation: Negative for rales, rhonchi or wheezes Cardio regular rate, regular rhythm, S1 normal heart sound, S2 normal heart sound, no murmurs, no rub and no gallops GI GI Narrative: Patient's abdomen is distended and tympanic, bowel sounds are minimal, patient has diffuse moderate abdominal discomfort to palpation, there is a colostomy in place. Auscultation: hypoactive bowel sounds Palpation: tender other (Diffuse abdominal discomfort to palpation) Extremity Extremity Narrative: There is a surgical incision over the patient's left knee, this area is clean and dry and there is no discharge from the area. Skin no rashes or lesions noted Neuro oriented x3, CN's II-XII intact bilaterally, moves all extremities, no focal motor deficits and no sensory deficits noted Sensorium / Orientation: awake and alert Speech: speech normal Psych affect normal Results Lab / Micro Data 02/19/23 12:22 02/19/23 12:22 Labs: Laboratory Results - last 24 hr 02/19/23 12:22: WBC 5.3, RBC 4.14 L, Hgb 11.1 L, Hct 34.3 L, MCV 82.9, MCH 26.8 L, MCHC 32.4, RDW Std Deviation 43.4, RDW Coeff of [place] 14.3, Plt Count 224, MPV 10.3, Immature Gran % (Auto) 0.400, Neut % (Auto) 78.2 H, Lymph % (Auto) 7.1 L, [place] % (Auto) 13.9 H, Eos % (Auto) 0.2, Baso % (Auto) 0.2, Absolute Neuts (auto) 4.2, Absolute Lymphs (auto) 0.38 L, Nucleated RBC % 0, Differential Comment SCANNED, Sodium 139, Potassium 3.6, Chloride 106, Carbon Dioxide 26.0, Anion Gap 7, BUN 28 H, Creatinine 1.47 H, Estim Creat Clear Calc 41.38, Est GFR (MDRD) Af Amer 59 L, Est GFR (MDRD) Non-Af 49 L, BUN/Creatinine Ratio 19.0, Glucose 185 H, Calcium 9.4 Radiology Impression KUB X-Ray 02/19/23 12:51 IMPRESSION: Recommend further insertion of the endogastric tube. Electronically Signed: Amol Whitley MD at 13:17 EDT , KUB X-Ray 02/19/23 14:28 IMPRESSION: Recommend further advancing the endogastric tube. Electronically Signed: Amol Whitley MD at 15:39 EDT , ADDENDUM: 02/19/23 1634 IMPRESSION: undefined Assessment & Plan Assessment/Plan (1) Partial small bowel obstruction: PLAN: Plan 1. Distal small bowel obstruction-etiology unclear, patient was admitted to [place] [address], he will be seen in consultation by general surgery, and NG was inserted in the emergency room and this will be hooked up to low intermittent suction. #2 essential hypertension-I placed the patient on IV Vasotec, IV metoprolol every 6 hours, and Apresoline as needed for extreme hypertension. #3 type 2 diabetes-patient's blood sugars will be monitored, sliding scale insulin will be administered as needed #4 osteoarthritis of the left knee-status post total knee replacement postop day #4 #5 hyperlipidemia-patient's statin will be held due to his n.p.o. status Total clinical time spent by myself addressing the patient's medical issues, reviewing all of his data, and collaborating with patient's care team: 55 minutes Charges/Coding Visit Charges Inpatient E&M: 50421 Init Hosp L2
[2023-02-19 18:43] VITALS: BP 192/80
--- NOTE | 2023-02-19 18:59 | NURSING ---
Applied Tele-Monitor at this time.
[2023-02-19 19:31] VITALS: BP 192/80; PULSE 87
[2023-02-19] MEDS: hydrALAZINE 20 MG/ML Vial 10 MG IV (19:31)
[2023-02-19 20:36] VITALS: BP 168/73; PULSE 91; RESP 18; TEMP 37.1; O2SAT 97
[2023-02-20] VITALS (23 sets, daily range): BP systolic 170–199; BP diastolic 74–97; PULSE 78–95; RESP 16–18; TEMP 36.4–37; O2SAT 95–99
[2023-02-20] MEDS: Insulin Lispro 100 UNIT/ML INSULN.PEN SC ×3 (00:24→12:24)
[2023-02-20] MEDS: 0.9% Normal Saline (1000mL) 1,000 ML 125 ML IV ×4 (00:25→23:48)
[2023-02-20] MEDS: 0.9% Saline Lock 10 ML Syringe IV ×5 (00:25→23:30)
[2023-02-20] MEDS: Metoprolol Tartrate 5 MG/5 ML Vial IV ×5 (00:25→23:38)
[2023-02-20] MEDS: Ondansetron 4 MG/2 ML Vial IV ×5 (00:25→23:38)
[2023-02-20 00:57] LABS: Bedside Glucose 160 mg/dL (74-106)
[2023-02-20] MEDS: Enalaprilat 1.25 MG/ML Vial 2.5 MG IV ×5 (00:57→23:49)
[2023-02-20 06:06] LABS: Absolute Lymphocyte Count 0.43 X10^3/uL (0.83-4.51); Absolute Neutrophil Count 3.1 X10^3/uL (2.0-7.7); Basophil# 0.01 X10^3/uL; Basophil% 0.2 % (0-1); Eosinophil# 0.01 X10^3/uL; Eosinophils% 0.2 % (0-5); Hematocrit 34.4 % (40-54); Hemoglobin 10.9 g/dL (13.0-16.5); Lymphocyte # 0.43 X10^3/ul (0.83-4.51); Lymphocyte % 10.3 % (19-41); Mean Corp Hgb Conc 31.7 g/dL (32-36); Mean Corpuscular Hgb 26.5 pg (27.0-32.0); Mean Corpuscular Volume 83.5 fL (80-94); Mean Platelet Vol. 10.5 fl (6.2-12.0); Monocyte# 0.63 X10^3/uL; NRBC Flagged by Analyzer 0 % (0-5); Neutrophil # 3.09 X10^3/uL (2.7-7.7); Neutrophil % 73.8 % (47-70); POSITIVE DIFFERENTIAL YES; Platelet Count 233 K/mm3 (150-450); RBC Distribution Width CV 14.6 % (11.6-14.6); RBC Distribution Width SD 44.1 fl (35.1-43.9); Red Blood Count 4.12 M/mm3 (4.6-6.2); White Blood Count 4.2 K/mm3 (4.4-11.0)
[2023-02-20] MEDS: Heparin Injection (Vial) 5,000 UNIT/ML VIAL 5000 UNIT SC ×3 (06:16→23:34)
[2023-02-20 07:23] LABS: Bedside Glucose 151 mg/dL (74-106)
[2023-02-20 07:26] LABS: Anion Gap 7 (5-15); BUN 28 mg/dL (7-18); BUN/Creat Ratio 19.7 RATIO (10-20); Calcium,Total 8.7 mg/dL (8.5-10.1); Chloride 112 mmol/L (98-107); Creatinine, Serum 1.42 mg/dL (0.70-1.30); EST Glomerular Filtration Rate 51 mL/min (>60); Est Glom Filt Rate - Afr Amer 62 mL/min (>60); Estimated Creatinine Clearance 42.84 ml/min; Glucose 160 mg/dL (74-106); Potassium 3.5 mmol/L (3.5-5.1); Sodium Level 142 mmol/L (136-145)
[2023-02-20 07:31] LABS: Differential Indicated SCAN CRITERIA MET
--- NOTE | 2023-02-20 08:24 | PCM.PN.SRG ---
Subjective Subjective Patient is not having any gas in his colostomy bag yet. He denies any nausea or vomiting or abdominal pain today. Objective Data Objective Data Vital Signs: Vital Signs Temp Pulse Resp BP Pulse Ox O2 Del Method 97.7 F L 79 18 170/82 H 97 Room Air 02/20/23 06:05 02/20/23 06:33 02/20/23 06:05 02/20/23 06:33 02/20/23 06:05 02/20/23 06:05 Oxygen Delivery Method Room Air Weight: 200 lb Body Mass Index (BMI) 28.7 Intake & Output: Intake and Output for Last 24 Hours 02/18/23 02/19/23 02/20/23 23:59 23:59 23:59 Intake Total 1189.17 / 1289.17 1964.58 / 1964.58 Output Total 425 / 825 925 / 925 Balance 764.17 / 464.17 1039.58 / 1039.58 Lab / Micro Data 02/20/23 05:00 02/20/23 05:00 Labs: Laboratory Results - last 24 hr 02/19/23 12:22: WBC 5.3, RBC 4.14 L, Hgb 11.1 L, Hct 34.3 L, MCV 82.9, MCH 26.8 L, MCHC 32.4, RDW Std Deviation 43.4, RDW Coeff of [place] 14.3, Plt Count 224, MPV 10.3, Immature Gran % (Auto) 0.400, Neut % (Auto) 78.2 H, Lymph % (Auto) 7.1 L, [place] % (Auto) 13.9 H, Eos % (Auto) 0.2, Baso % (Auto) 0.2, Absolute Neuts (auto) 4.2, Absolute Lymphs (auto) 0.38 L, Nucleated RBC % 0, Differential Comment SCANNED, Sodium 139, Potassium 3.6, Chloride 106, Carbon Dioxide 26.0, Anion Gap 7, BUN 28 H, Creatinine 1.47 H, Estim Creat Clear Calc 41.38, Est GFR (MDRD) Af Amer 59 L, Est GFR (MDRD) Non-Af 49 L, BUN/Creatinine Ratio 19.0, Glucose 185 H, Calcium 9.4 02/20/23 00:22: POC Glucose 160 H 02/20/23 05:00: WBC 4.2 L, RBC 4.12 L, Hgb 10.9 L, Hct 34.4 L, MCV 83.5, MCH 26.5 L, MCHC 31.7 L, RDW Std Deviation 44.1 H, RDW Coeff of [place] 14.6, Plt Count 233, MPV 10.5, Immature Gran % (Auto) 0.500, Neut % (Auto) 73.8 H, Lymph % (Auto) 10.3 L, [place] % (Auto) 15.0 H, Eos % (Auto) 0.2, Baso % (Auto) 0.2, Absolute Neuts (auto) 3.1, Absolute Lymphs (auto) 0.43 L, Nucleated RBC % 0, Sodium 142, Potassium 3.5, Chloride 112 H, Carbon Dioxide 23.0, Anion Gap 7, BUN 28 H, Creatinine 1.42 H, Estim Creat Clear Calc 42.84, Est GFR (MDRD) Af Amer 62, Est GFR (MDRD) Non-Af 51 L, BUN/Creatinine Ratio 19.7, Glucose 160 H, Calcium 8.7 02/20/23 06:28: POC Glucose 151 H Radiography Diagnostic Testing: Radiology Impression KUB X-Ray 02/19/23 12:51 IMPRESSION: Recommend further insertion of the endogastric tube. Electronically Signed: Amol Whitley MD at 13:17 EDT , KUB X-Ray 02/19/23 14:28 IMPRESSION: Recommend further advancing the endogastric tube. Electronically Signed: Amol Whitley MD at 15:39 EDT , ADDENDUM: 02/19/23 1634 IMPRESSION: undefined KUB X-Ray 02/19/23 17:25 IMPRESSION: 1. Enteric tube tip and side-port below the level of the GE junction. 2. Bilateral ureteral stents partially visualized with hydronephrotic left kidney and contrast identified in the bilateral collecting systems greater on the left. Electronically Signed: Ramiro Childress DO at 18:52 EDT , Physical Exam Const oriented x3 and no apparent distress Resp normal respiratory effort GI soft to palpation and non-tender Assessment & Plan Assessment/Plan (1) Partial small bowel obstruction: PLAN: Patient has a partial small bowel obstruction is not having any bowel function yet. Continue to observe on IV fluids with n.p.o. If there is still no bowel function tomorrow we will discuss contrast study versus exploratory laparoscopy. Hold a.m. dose of heparin in case. Jose Michele MD Pager: [facility] [address] [place] [address], [address] [place] [address] Office:
[2023-02-20] MEDS: Pantoprazole Sodium 40 MG in 0.9% Normal Saline (100mL MB+) 100 ML 330 MG IV (08:36)
[2023-02-20 10:53] LABS: Differential Comment SCANNED
[2023-02-20 13:05] LABS: Bedside Glucose 161 mg/dL (74-106)
--- NOTE | 2023-02-20 15:10 | PCM.PN.HOSP ---
Reason for Visit Reason for Visit: Diagnoses Partial intestinal obstruction, unspecified as to cause (02/19/23) Subjective Subjective Patient was was seen and examined today, his NG tube remains in place, talked with general surgery briefly about his care, general surgery may do an imaging study tomorrow on the patient if he does not improve. Patient's blood pressure is still little high. Objective Data Objective Data Vital Signs: Vital Signs Temp Pulse Resp BP Pulse Ox O2 Del Method 98.2 F 80 16 171/91 H 97 Room Air 02/20/23 12:05 02/20/23 12:44 02/20/23 12:05 02/20/23 12:44 02/20/23 12:05 02/20/23 12:05 Oxygen Delivery Method Room Air Weight: 90.718 kg Body Mass Index (BMI) 28.7 Intake & Output: Intake and Output for Last 24 Hours 02/18/23 02/19/23 02/20/23 23:59 23:59 23:59 Intake Total 1189.17 / 1289.17 2224.58 / 2224.58 Output Total 425 / 825 1575 / 1575 Balance 764.17 / 464.17 649.58 / 649.58 Lab / Micro Data 02/20/23 05:00 02/20/23 05:00 Labs: Laboratory Results - last 24 hr 02/20/23 00:22: POC Glucose 160 H 02/20/23 05:00: WBC 4.2 L, RBC 4.12 L, Hgb 10.9 L, Hct 34.4 L, MCV 83.5, MCH 26.5 L, MCHC 31.7 L, RDW Std Deviation 44.1 H, RDW Coeff of [place] 14.6, Plt Count 233, MPV 10.5, Immature Gran % (Auto) 0.500, Neut % (Auto) 73.8 H, Lymph % (Auto) 10.3 L, [place] % (Auto) 15.0 H, Eos % (Auto) 0.2, Baso % (Auto) 0.2, Absolute Neuts (auto) 3.1, Absolute Lymphs (auto) 0.43 L, Nucleated RBC % 0, Differential Comment SCANNED, Diff Path Review May foll, Sodium 142, Potassium 3.5, Chloride 112 H, Carbon Dioxide 23.0, Anion Gap 7, BUN 28 H, Creatinine 1.42 H, Estim Creat Clear Calc 42.84, Est GFR (MDRD) Af Amer 62, Est GFR (MDRD) Non-Af 51 L, BUN/Creatinine Ratio 19.7, Glucose 160 H, Calcium 8.7 02/20/23 06:28: POC Glucose 151 H 02/20/23 12:18: POC Glucose 161 H Radiography Diagnostic Testing: Radiology Impression KUB X-Ray 02/19/23 14:28 IMPRESSION: Recommend further advancing the endogastric tube. Electronically Signed: Amol Whitley MD at 15:39 EDT , ADDENDUM: 02/19/23 1634 IMPRESSION: undefined KUB X-Ray 02/19/23 17:25 IMPRESSION: 1. Enteric tube tip and side-port below the level of the GE junction. 2. Bilateral ureteral stents partially visualized with hydronephrotic left kidney and contrast identified in the bilateral collecting systems greater on the left. Electronically Signed: Ramiro VCoty Childress at 18:52 EDT , Physical Exam Narrative alert, oriented x3, no apparent distress and average body habitus General Appearance: cooperative, well kempt and well developed Orientation / Consciousness: awake, oriented to person, oriented to place and oriented to time HEENT normocephalic, head/scalp atraumatic, hearing grossly normal bilaterally and moist oral mucous membranes Eyes PERRL, EOMs intact bilaterally and conjunctivae normal Neck supple, no JVD, thyroid normal and no carotid bruits General: trachea midline Resp normal respiratory effort, no retractions, no use of accessory muscles and clear to auscultation bilaterally Auscultation: Negative for rales, rhonchi or wheezes Cardio regular rate, regular rhythm, S1 normal heart sound, S2 normal heart sound, no murmurs, no rub and no gallops GI GI Narrative: Patient's abdomen is tympanic but nondistended, bowel sounds are minimal, patient has no abdominal discomfort to palpation Auscultation: hypoactive bowel sounds Palpation: Abdomen is soft, no rebound abdominal tenderness was noted Extremity Extremity Narrative: There is a surgical incision over the patient's left knee, this area is clean and dry and there is no discharge from the area. Skin no rashes or lesions noted Neuro oriented x3, CN's II-XII intact bilaterally, moves all extremities, no focal motor deficits and no sensory deficits noted Sensorium / Orientation: awake and alert Speech: speech normal Psych affect normal Assessment & Plan Assessment/Plan (1) Partial small bowel obstruction: PLAN: Plan 1. Distal small bowel obstruction-etiology unclear, patient is being seen by general surgery, NG suction will continue at this time #2 essential hypertension-patient is on IV metoprolol and Vasotec #3 type 2 diabetes-patient's blood sugars will be monitored, sliding scale insulin will be administered as needed #4 osteoarthritis of the left knee-status post total knee replacement postop day #5 #5 hyperlipidemia-patient's statin will be held due to his n.p.o. status Total clinical time spent by myself addressing the patient's medical issues, reviewing all of his data, and collaborating with patient's care team: 35 minutes Charges/Coding Visit Charges Inpatient E&M: 38237 Subs Hosp L2
--- NOTE | 2023-02-20 16:56 | NURSING ---
Earlier pt was only able to dangle feet and take a few steps in front of bed with therapy as he felt to weak to walk. Now pt was able to Dangle feet, Stand up and walked to the corner of the kitchen by room 307 and back to bed. Pt had 3-quarter sized, formed, hard stool at stoma site prior to the walk. After the walk he had 3 more that were same in shape and size. Dr. Michele aware, No new orders.
[2023-02-20] MEDS: hydrALAZINE 20 MG/ML Vial 10 MG IV (23:29)
[2023-02-21] VITALS (17 sets, daily range): BP systolic 141–191; BP diastolic 72–100; PULSE 82–98; RESP 16–18; TEMP 36.4–37.3; O2SAT 95–99
[2023-02-21 00:28] LABS: Bedside Glucose 135 mg/dL (74-106)
[2023-02-21 00:28] LABS: Bedside Glucose 141 mg/dL (74-106)
[2023-02-21] MEDS: 0.9% Saline Lock 10 ML Syringe IV (05:56)
[2023-02-21] MEDS: hydrALAZINE 20 MG/ML Vial 10 MG IV ×2 (05:56→11:57)
[2023-02-21] MEDS: Ondansetron 4 MG/2 ML Vial IV ×3 (06:04→17:50)
[2023-02-21] MEDS: Metoprolol Tartrate 5 MG/5 ML Vial IV ×3 (06:04→17:50)
[2023-02-21] MEDS: Enalaprilat 1.25 MG/ML Vial 2.5 MG IV ×3 (06:14→11:36)
[2023-02-21] MEDS: 0.9% Normal Saline (1000mL) 1,000 ML 125 ML IV ×2 (06:16→17:55)
[2023-02-21 07:17] LABS: Bedside Glucose 129 mg/dL (74-106)
--- NOTE | 2023-02-21 07:48 | PN.SURG_ITS ---
Subjective Subjective Patient had some hard stool balls from his colostomy overnight Objective Data Objective Data Vital Signs: Vital Signs Temp Pulse Resp BP Pulse Ox O2 Del Method 97.8 F 83 18 167/82 H 97 Room Air 02/21/23 05:48 02/21/23 06:24 02/21/23 05:48 02/21/23 06:24 02/21/23 05:48 02/21/23 06:00 Oxygen Delivery Method Room Air Weight: 200 lb Body Mass Index (BMI) 28.7 Intake & Output: Intake and Output for Last 24 Hours 02/19/23 02/20/23 02/21/23 23:59 23:59 23:59 Intake Total 1189.17 / 1289.17 4247.50 / 4397.50 1058.33 / 1058.33 Output Total 425 / 825 1975 / 2775 1150 / 1150 Balance 764.17 / 464.17 2272.50 / 1622.50 -91.67 / -91.67 Lab / Micro Data 02/20/23 05:00 02/20/23 05:00 Labs: Laboratory Results - last 24 hr 02/20/23 05:00: Differential Comment SCANNED, Diff Path Review September02/20/23 12:18: POC Glucose 161 H 02/20/23 18:40: POC Glucose 141 H 02/20/23 23:29: POC Glucose 135 H 02/21/23 05:54: POC Glucose 129 H Physical Exam Const oriented x3 Resp normal respiratory effort GI soft to palpation Inspection: Negative for abdominal distention Assessment & Plan Assessment/Plan (1) Partial small bowel obstruction: PLAN: The patient had some hard bowel movement yesterday but I believe this is just his colon waking up. Unsure if the small bowel has resumed function. I will order a small bowel follow-through for today. Jose Michele MD Pager: [facility] [address] [place] [address], [address] [place] [address] Office:
--- NOTE | 2023-02-21 08:45 | RAD_ITS ---
INDICATION: sbo -- gastgrograffin follow through EXAMINATION/TECHNIQUE: Gastrograffin oral contrast was administered orally via enteric tube to the patient. 6 total images. No fluoroscopic images. COMPARISON: Prior study dated: 02/19/2023 FINDINGS: The implementation project manager image shows an enteric tube in place in the stomach. Bilateral ureteral stents are seen. Dilated small bowel seen diffusely throughout the abdomen. Degenerative changes of the spine. The lung bases are clear. Contrast is injected into the enteric tube, filling the stomach and extending into the duodenum. Images obtained up to 120 minutes after contrast injection show mild progression of contrast into the proximal dilated small bowel. RAD/Small Bowel Series Only IMPRESSION: Diffuse small bowel dilatation with slow transit of contrast into the proximal dilated small bowel. There is no further extension after 120 minutes. Electronically Signed: Rene Mendoaz MD at 12:07 EDT ,
--- NOTE | 2023-02-21 10:56 | EKG12_ITS ---
Test Reason : PREOP Blood Pressure : / mmHG Vent. Rate : 095 BPM Atrial Rate : 095 BPM P-R Int : 134 ms QRS Dur : 134 ms QT Int : 408 ms P-R-T Axes : 067 -47 049 degrees QTc Int : 512 ms Normal sinus rhythm Right bundle branch block Left anterior fascicular block Bifascicular block Abnormal ECG No previous ECGs available Confirmed by YUE LUU, DENICE ([id number]), associate entertainment editor TIP HAIR ([id number]) on 02/22/2023 11:28:23 AM Referred By: Confirmed By:DENICE TURNER MD
[2023-02-21] MEDS: Pantoprazole Sodium 40 MG in 0.9% Normal Saline (100mL MB+) 100 ML 330 MG IV (11:04)
[2023-02-21 11:45] LABS: Bedside Glucose 154 mg/dL (74-106)
--- NOTE | 2023-02-21 12:29 | PCM.PN.BLA ---
Progress Note The patient had a small bowel follow-through today and after 2 hours the contrast at stoma of the colon and the small bowel looked moderately distended. At that point I canceled the small bowel follow-through and recommended surgery and placed his NG back to suction. I discussed surgery with the patient in detail. I will attempt to start laparoscopically and see if I can take down the adhesions and relieve the small bowel obstruction but if not I may have to convert to open surgery and I may have to resect bowel. I discussed the risks of the procedure such as bleeding, infection, injury to bowel or bladder, need for bowel resection, injury to underlying bowel. Patient understands the risks and is willing to proceed. Jose Michele MD Pager: [facility] [address] [place] [address] Office:
[2023-02-21 12:59] LABS: Pathologist Review Reviewed
[2023-02-21 13:24] LABS: Partial Thromboplast Time 33.1 Seconds (24.1-36.2)
[2023-02-21 13:59] LABS: Hemoglobin A1c 6.3 % (3.8-5.6)
[2023-02-21] MEDS: 0.9% Normal Saline (1000mL) 1,000 ML 15 ML IV (14:30)
[2023-02-21] MEDS: Cefotetan 2 GM in 0.9% Normal Saline (100mL MB+) 100 ML IV (14:35)
[2023-02-21] MEDS: Bupivacaine 0.5% PF 10 ML VIAL (15:00)
[2023-02-21] MEDS: Lactated Ringers 1,000 ML 15 ML IV (15:25)
[2023-02-21] MEDS: Sugammadex Sodium 200 MG/2 ML VIAL IV (15:49)
--- NOTE | 2023-02-21 16:00 | OP.PCM_ITS ---
Report of Operation Date of Procedure: 02/21/23 Pre-Operative Diagnosis: Small bowel obstruction Post-Operative Diagnosis: Small bowel obstruction Surgery/Procedure Performed:: Exploratory laparoscopy with lysis of adhesions Type of Anesthesia: General/Regional Estimated Blood Loss (mL): 10 Description of Procedure: Patient was brought back to the operating room and general anesthesia was in duced. The colostomy was draped off. The abdomen was prepped and draped in usual sterile fashion. A small midline incision was made superior to the umbilicus and deepened to the fascia which was elevated and incised. A finger sweep was performed and a port was placed into the abdomen and it was inflated to 15 mmHg. Patient was placed in Trendelenburg position. Under direct visualization 2 right lower quadrant 5 mm ports were placed as well as a left lower quadrant 5 mm port. The cecum was identified and traced back to the terminal ileum. The terminal ileum entered the pelvis and then came back out and the proximal small bowel was adherent to the stoma site. Proximal to the stoma site the small bowel was distended. I am unsure if the site of obstruction is the pelvis or the left lower quadrant small bowel adhesion and has it all appeared to have some stool in it. On his original CT scan all of the bowel that was in the pelvis was completely decompressed so I believe it is the more proximal adhesion. The more proximal small bowel was taken down sharply from its adhesions and its interloop adhesions were removed. The bowel was completely freed up and mobile. It was ran proximally and the bowel proximal to this was very distended. All of the small bowel except for the adhesion in the pelvis was mobilized and freely mobile. I do not believe that I would be able to safely remove the small bowel loop from the pelvis so I left it there. The left lower quadrant is irrigated and suction and then the air was allowed to desufflate from the abdomen. All the incisions were injected with local anesthetic. The fascia of the midline incision was closed with a [id number] 0 Vicryl suture. All of the incisions were closed with interrupted 4-0 Monocryl suture. Steri-Strips and bandages were applied and patient was taken to PACU in stable condition. Admit VTE Documentation VTE Mechan Device Prophylaxis: SCD's
[2023-02-21 16:38] LABS: Bedside Glucose 171 mg/dL (74-106)
--- NOTE | 2023-02-21 18:01 | PN.HOSP_ITS ---
Reason for Visit Reason for Visit: Diagnoses Partial intestinal obstruction, unspecified as to cause (02/19/23) Subjective Subjective Patient was seen and examined today, he went to surgery today for an exploratory laparoscopy with lysis of adhesions, I talked briefly with general surgery about his care today. He is alert, he does not complain of any severe abdominal pain, NG tube is still in place. Objective Data Objective Data Vital Signs: Vital Signs Temp Pulse Resp BP Pulse Ox O2 Del Method O2 Flow Rate 97.5 F L 93 18 141/72 H 97 Nasal Cannula 2 02/21/23 17:34 02/21/23 17:50 02/21/23 17:34 02/21/23 17:50 02/21/23 17:34 02/21/23 17:34 02/21/23 17:34 Oxygen Flow Rate (L/min) 2 Oxygen Delivery Method Nasal Cannula Weight: 90.718 kg Body Mass Index (BMI) 28.7 Intake & Output: Intake and Output for Last 24 Hours 02/19/23 02/20/23 02/21/23 23:59 23:59 23:59 Intake Total 1189.17 / 1289.17 4247.50 / 4397.50 3268.33 / 3268.33 Output Total 425 / 825 1975 / 2775 2750 / 2750 Balance 764.17 / 464.17 2272.50 / 1622.50 518.33 / 518.33 Lab / Micro Data 02/20/23 05:00 02/20/23 05:00 Labs: Laboratory Results - last 24 hr 02/20/23 05:00: Diff Path Review Reviewed 02/20/23 18:40: POC Glucose 141 H 02/20/23 23:29: POC Glucose 135 H 02/21/23 05:00: Hemoglobin A1c 6.3 H 02/21/23 05:54: POC Glucose 129 H 02/21/23 11:22: POC Glucose 154 H 02/21/23 11:55: APTT Cancelled 02/21/23 13:08: APTT 33.1 02/21/23 16:19: POC Glucose 171 H Radiography Diagnostic Testing: Radiology Impression Small Bowel X-Ray 02/21/23 08:45 IMPRESSION: Diffuse small bowel dilatation with slow transit of contrast into the proximal dilated small bowel. There is no further extension after 120 minutes. Electronically Signed: Rene Mendoza MD at 12:07 EDT Reading Location ID and State: [facility]0 / [place] Tel , Service support , Physical Exam Const alert, oriented x3, no apparent distress and average body habitus General Appearance: cooperative, well kempt and well developed Orientation / Consciousness: awake, oriented to person, oriented to place and oriented to time HEENT normocephalic, head/scalp atraumatic and moist oral mucous membranes Eyes PERRL, EOMs intact bilaterally and conjunctivae normal Neck supple, no JVD, thyroid normal and no carotid bruits General: trachea midline Resp normal respiratory effort, no retractions, no use of accessory muscles and clear to auscultation bilaterally Auscultation: Negative for rales, rhonchi or wheezes Cardio regular rate, regular rhythm, S1 normal heart sound, S2 normal heart sound, no murmurs, no rub and no gallops GI non-distended GI Narrative: Patient has a colostomy bag in place, NG tube is in place Extremity no clubbing, cyanosis or edema Skin no rashes or lesions noted Skin Narrative: There is a recent surgical incision over the patient's left knee with sammi in place Neuro oriented x3, CN's II-XII intact bilaterally, moves all extremities, no focal motor deficits and no sensory deficits noted Sensorium / Orientation: awake and alert Speech: speech normal Psych affect normal Assessment & Plan Assessment/Plan (1) Partial small bowel obstruction: PLAN: Plan 1. Small bowel obstruction-postop day 0 lysis of adhesions-General surgery is participating in his care #2 essential hypertension-patient will remain on IV medications for blood pressure, blood pressure will be monitored #3 type 2 diabetes-patient's blood sugars were monitored, sliding scale insulin will be given if necessary #4 osteoarthritis of the left knee-status post total knee replacement postop day #6-PT and OT are seeing patient #5 hyperlipidemia-patient's statin is being held due to his n.p.o. status Total clinical time spent by myself addressing the patient's medical issues, reviewing all of his data, and collaborating with patient's care team: 25 minutes Charges/Coding Visit Charges Inpatient E&M: 07811 Subs Hosp L1
[2023-02-21] MEDS: Heparin Injection (Vial) 5,000 UNIT/ML VIAL 5000 UNIT SC (21:46)
[2023-02-22] VITALS (22 sets, daily range): BP systolic 161–199; BP diastolic 71–96; PULSE 82–106; RESP 12–20; TEMP 36.1–37; O2SAT 95–97
[2023-02-22] MEDS: 0.9% Normal Saline (1000mL) 1,000 ML 125 ML IV ×3 (00:23→16:15)
[2023-02-22] MEDS: hydrALAZINE 20 MG/ML Vial 10 MG IV ×2 (00:29→16:00)
[2023-02-22] MEDS: Ondansetron 4 MG/2 ML Vial IV ×5 (00:31→22:56)
[2023-02-22] MEDS: 0.9% Saline Lock 10 ML Syringe IV ×3 (00:31→22:56)
[2023-02-22] MEDS: Enalaprilat 1.25 MG/ML Vial 2.5 MG IV ×3 (00:37→12:53)
[2023-02-22 00:46] LABS: Bedside Glucose 137 mg/dL (74-106)
[2023-02-22] MEDS: Metoprolol Tartrate 5 MG/5 ML Vial IV ×3 (00:49→12:54)
[2023-02-22] MEDS: Heparin Injection (Vial) 5,000 UNIT/ML VIAL 5000 UNIT SC ×3 (06:14→21:43)
--- NOTE | 2023-02-22 06:35 | PCM.PN.SRG ---
Subjective Subjective The patient report is having a softer bowel movement overnight through his colostomy. He denies any nausea or dry heaving overnight. He says he overall feels better than before surgery. Objective Data Objective Data Vital Signs: Vital Signs Temp Pulse Resp BP Pulse Ox O2 Del Method O2 Flow Rate 98.6 F 98 16 186/96 H 95 Room Air 1 02/22/23 00:57 02/22/23 06:20 02/22/23 00:57 02/22/23 06:20 02/22/23 00:57 02/22/23 00:57 02/21/23 23:56 Oxygen Flow Rate (L/min) 1 Oxygen Delivery Method Room Air Weight: 200 lb Body Mass Index (BMI) 28.7 Intake & Output: Intake and Output for Last 24 Hours 02/20/23 02/21/23 02/22/23 23:59 23:59 23:59 Intake Total 4247.50 / 4397.50 3329.58 / 3429.58 908.33 / 908.33 Output Total 1975 / 2775 2750 / 3450 1150 / 1150 Balance 2272.50 / 1622.50 579.58 / -20.42 -241.67 / -241.67 Lab / Micro Data 02/20/23 05:00 02/20/23 05:00 Labs: Laboratory Results - last 24 hr 02/20/23 05:00: Diff Path Review Reviewed 02/21/23 05:00: Hemoglobin A1c 6.3 H 02/21/23 05:54: POC Glucose 129 H 02/21/23 11:22: POC Glucose 154 H 02/21/23 11:55: APTT Cancelled 02/21/23 13:08: APTT 33.1 02/21/23 16:19: POC Glucose 171 H 02/22/23 00:21: POC Glucose 137 H Radiography Diagnostic Testing: Radiology Impression Small Bowel X-Ray 02/21/23 08:45 IMPRESSION: Diffuse small bowel dilatation with slow transit of contrast into the proximal dilated small bowel. There is no further extension after 120 minutes. Electronically Signed: Rene Mendoza MD at 12:07 EDT , Physical Exam Const oriented x3 and no apparent distress Resp normal respiratory effort GI soft to palpation and non-tender Assessment & Plan Assessment/Plan (1) Partial small bowel obstruction: PLAN: Patient had laparoscopic lysis of adhesions yesterday. He has decreased output from his NG. He says he feels better than yesterday but there is still no gas in the bag. His NG appears clearer than it was yesterday. I will try to remove the NG this morning and keep him on sips and chips until he starts having more significant bowel function. Once he starts passing gas I will advance diet as tolerated. Jose Michele MD Pager: [facility] [address] [place] [address], [address] [place] [address] Office:
--- NOTE | 2023-02-22 06:57 | NURSING ---
NGT removed at this time, per physician orders. pt tolerated well.
[2023-02-22 07:17] LABS: Bedside Glucose 135 mg/dL (74-106)
[2023-02-22] MEDS: Pantoprazole Sodium 40 MG in 0.9% Normal Saline (100mL MB+) 100 ML 330 MG IV (09:43)
--- NOTE | 2023-02-22 09:46 | CASEMGMT ---
Social Work SW met with pt and discussed discharge plan. Pt was admitted from TCU and would like to return to TCU for short term therapy prior to returning home. WARNER spoke with Hollie in TCU and pt can be accepted back when medically ready. Pt and physician notified. Plan: TCU, when medically ready MARY Talamantes
--- NOTE | 2023-02-22 09:58 | PCM.PN.HOSP ---
Reason for Visit Reason for Visit: Diagnoses Partial intestinal obstruction, unspecified as to cause (02/19/23) Subjective Subjective Patient was seen and examined today, I talked briefly with general surgery, his NG tube was removed, patient does have some bowel sounds. Patient is on sips and chips at this time, I will transition him over to oral blood pressure medication. I am going to refrain from placing him back on amlodipine due to its effect on slowing the bowels. Objective Data Objective Data Vital Signs: Vital Signs Temp Pulse Resp BP Pulse Ox O2 Del Method O2 Flow Rate 97.9 F 88 12 188/91 H 97 Room Air 1 02/22/23 08:49 02/22/23 08:49 02/22/23 08:49 02/22/23 08:49 02/22/23 08:49 02/22/23 09:35 02/21/23 23:56 Oxygen Flow Rate (L/min) 1 Oxygen Delivery Method Room Air Weight: 90.718 kg Body Mass Index (BMI) 28.7 Intake & Output: Intake and Output for Last 24 Hours 02/20/23 02/21/23 02/22/23 23:59 23:59 23:59 Intake Total 4247.50 / 4397.50 3329.58 / 3429.58 1958.33 / 1958.33 Output Total 1975 / 2775 2750 / 3450 1500 / 1500 Balance 2272.50 / 1622.50 579.58 / -20.42 458.33 / 458.33 Lab / Micro Data 02/20/23 05:00 02/20/23 05:00 Labs: Laboratory Results - last 24 hr 02/20/23 05:00: Diff Path Review Reviewed 02/21/23 05:00: Hemoglobin A1c 6.3 H 02/21/23 11:22: POC Glucose 154 H 02/21/23 11:55: APTT Cancelled 02/21/23 13:08: APTT 33.1 02/21/23 16:19: POC Glucose 171 H 02/22/23 00:21: POC Glucose 137 H 02/22/23 06:01: POC Glucose 135 H Radiography Diagnostic Testing: Radiology Impression Small Bowel X-Ray 02/21/23 08:45 IMPRESSION: Diffuse small bowel dilatation with slow transit of contrast into the proximal dilated small bowel. There is no further extension after 120 minutes. Electronically Signed: Rene Mendoza MD at 12:07 EDT Reading Location ID and State: [facility] / [place] Tel , Service support , Physical Exam Const alert, oriented x3, no apparent distress and average body habitus General Appearance: cooperative, well kempt and well developed Orientation / Consciousness: awake, oriented to person, oriented to place and oriented to time HEENT normocephalic, head/scalp atraumatic and moist oral mucous membranes Eyes PERRL, EOMs intact bilaterally and conjunctivae normal Neck supple, no JVD, thyroid normal and no carotid bruits General: trachea midline Resp normal respiratory effort and clear to auscultation bilaterally Auscultation: Negative for rales, rhonchi or wheezes Cardio regular rate, regular rhythm, S1 normal heart sound, S2 normal heart sound, no murmurs, no rub and no gallops GI normal to inspection, nondistended, normoactive bowel sounds, soft to palpation, non-tender and non-distended GI Narrative: Patient has a colostomy Extremity no clubbing, cyanosis or edema Skin no rashes or lesions noted General Skin Exam: no breakdown Neuro oriented x3, CN's II-XII intact bilaterally, no focal motor deficits and no sensory deficits noted Sensorium / Orientation: awake and alert Speech: speech normal Psych affect normal Assessment & Plan Assessment/Plan (1) Partial small bowel obstruction: PLAN: Plan 1. Small bowel obstruction-postop day 1 lysis of adhesions-General surgery is participating in his care, his NG tube is now out, I will reintroduce oral blood pressure medications #2 essential hypertension-patient's blood pressure medications will be readjusted today #3 type 2 diabetes-patient's blood sugars were monitored, sliding scale insulin will be given if necessary #4 osteoarthritis of the left knee-status post total knee replacement postop day #7-PT and OT are seeing patient, he will return to TCU when medically stable, he does not need preapproval to go back to TCU. #5 hyperlipidemia-patient's statin is being held due to his n.p.o. status Total clinical time spent by myself addressing the patient's medical issues, reviewing all of his data, and collaborating with patient's care team: 35 minutes Charges/Coding Visit Charges Inpatient E&M: 30893 Subs Hosp L2
[2023-02-22 11:48] LABS: Bedside Glucose 149 mg/dL (74-106)
[2023-02-22 17:05] LABS: Bedside Glucose 148 mg/dL (74-106)
[2023-02-22] MEDS: Metoprolol(XL)Succ 100 MG Tablet PO (18:32)
[2023-02-22] MEDS: hydrALAZINE 50 MG Tablet PO ×2 (18:33→22:55)
[2023-02-22] MEDS: Losartan Potassium 100 MG Tablet PO (18:34)
[2023-02-22] MEDS: hydroCHLOROthiazide 12.5mg 12.5 MG PO (18:34)
[2023-02-22 22:23] LABS: Bedside Glucose 148 mg/dL (74-106)
[2023-02-23] VITALS (9 sets, daily range): BP systolic 153–192; BP diastolic 68–87; PULSE 76–89; RESP 18–20; TEMP 36.3–36.6; O2SAT 94–97
[2023-02-23] MEDS: 0.9% Normal Saline (1000mL) 1,000 ML 125 ML IV (00:04)
[2023-02-23] MEDS: Ondansetron 4 MG/2 ML Vial IV ×4 (05:23→23:19)
[2023-02-23] MEDS: hydrALAZINE 50 MG Tablet PO ×2 (05:23→14:28)
[2023-02-23] MEDS: Heparin Injection (Vial) 5,000 UNIT/ML VIAL 5000 UNIT SC ×3 (05:23→21:49)
--- NOTE | 2023-02-23 07:10 | PCM.PN.SRG ---
Subjective Subjective Patient says that he had a lot of bowel output yesterday. He says he is still feeling bloated and not very hungry and not having any appetite Objective Data Objective Data Vital Signs: Vital Signs Temp Pulse Resp BP Pulse Ox O2 Del Method O2 Flow Rate 97.4 F L 89 18 192/80 H 97 Room Air 1 02/23/23 05:07 02/23/23 05:23 02/23/23 05:07 02/23/23 05:23 02/23/23 05:07 02/23/23 05:07 02/21/23 23:56 Oxygen Flow Rate (L/min) 1 Oxygen Delivery Method Room Air Weight: 200 lb Body Mass Index (BMI) 28.7 Intake & Output: Intake and Output for Last 24 Hours 02/21/23 02/22/23 02/23/23 23:59 23:59 23:59 Intake Total 3329.58 / 3429.58 3685.00 / 3685.00 977.08 / 977.08 Output Total 2750 / 3450 2550 / 2550 450 / 450 Balance 579.58 / -20.42 1135.00 / 1135.00 527.08 / 527.08 Lab / Micro Data 02/20/23 05:00 02/20/23 05:00 Labs: Laboratory Results - last 24 hr 02/22/23 06:01: POC Glucose 135 H 02/22/23 11:11: POC Glucose 149 H 02/22/23 16:48: POC Glucose 148 H 02/22/23 21:40: POC Glucose 148 H Physical Exam Const oriented x3 and no apparent distress Resp normal respiratory effort GI soft to palpation Assessment & Plan Assessment/Plan (1) Partial small bowel obstruction: PLAN: Patient is having stool output from his colostomy but he is still feeling very bloated and not very hungry. I asked him to stay at his own pace and take his clear liquid diet very slowly. Once he is feeling more hungry and tolerating more of a diet I will advance his diet. I will also decrease IV fluid rate as he has been urinating a lot. Jose Michele MD Pager: [facility] [address] [place] [address], [address] [place] [address] Office:
[2023-02-23] MEDS: 0.9% Normal Saline (1000mL) 1,000 ML 40 ML IV (09:25)
[2023-02-23] MEDS: Pantoprazole Sodium 40 MG in 0.9% Normal Saline (100mL MB+) 100 ML 330 MG IV (09:25)
[2023-02-23] MEDS: Metoprolol(XL)Succ 100 MG Tablet PO (09:26)
[2023-02-23] MEDS: Losartan Potassium 100 MG Tablet PO (09:27)
[2023-02-23] MEDS: hydroCHLOROthiazide 12.5mg 12.5 MG PO (09:27)
[2023-02-23 11:00] LABS: Bedside Glucose 153 mg/dL (74-106)
--- NOTE | 2023-02-23 11:16 | PCM.PN.HOSP ---
Reason for Visit Reason for Visit: Diagnoses Partial intestinal obstruction, unspecified as to cause (02/19/23) Subjective Subjective Abdomen overall better, though slope tender. +BM and flatus. Objective Data Objective Data Vital Signs: Vital Signs Temp Pulse Resp BP Pulse Ox O2 Del Method O2 Flow Rate 36.3 C L 83 18 153/69 H 97 Room Air 1 02/23/23 08:15 02/23/23 09:26 02/23/23 08:15 02/23/23 09:26 02/23/23 08:15 02/23/23 09:34 02/21/23 23:56 Oxygen Flow Rate (L/min) 1 Oxygen Delivery Method Room Air Weight: 90.718 kg Body Mass Index (BMI) 28.7 Intake & Output: Intake and Output for Last 24 Hours 02/21/23 02/22/23 02/23/23 23:59 23:59 23:59 Intake Total 3329.58 / 3429.58 3685.00 / 3685.00 1977.08 / 1976.08 Output Total 2750 / 3450 2550 / 2550 450 / 450 Balance 579.58 / -20.42 1135.00 / 1135.00 1527.08 / 1527.08 Lab / Micro Data 02/20/23 05:00 02/20/23 05:00 Labs: Laboratory Results - last 24 hr 02/22/23 11:11: POC Glucose 149 H 02/22/23 16:48: POC Glucose 148 H 02/22/23 21:40: POC Glucose 148 H 02/23/23 06:42: POC Glucose 153 H Physical Exam Const alert and no apparent distress HEENT head/scalp atraumatic and moist oral mucous membranes Resp normal respiratory effort, no retractions, no use of accessory muscles and clear to auscultation bilaterally Cardio regular rate, regular rhythm, S1 normal heart sound and S2 normal heart sound GI GI Narrative: distended. hypoactive BS. colostomy in RLE Neuro Sensorium / Orientation: awake and alert Assessment & Plan Assessment/Plan (1) Partial small bowel obstruction: PLAN: s/p LAURA on 02/21. GS following. Diet per GS, currently on CLD. PLAN: Plan Chronic conditions: essential hypertension: continue losartan, metoprolol succinate, HCTZ, hydralazine type 2 diabetes-patient's blood sugars were monitored, sliding scale insulin will be given if necessary. Metformin on hold osteoarthritis of the left knee-status post total knee replacement postop day #7-PT and OT are seeing patient, he will return to TCU when medically stable, he does not need preapproval to go back to TCU. He was on apixaban for VTE prophylaxis from this surgery. hyperlipidemia-resume statin VTE prophylaxis: Charges/Coding Visit Charges Inpatient E&M: 48954 Subs Hosp L2
[2023-02-23 12:46] LABS: Bedside Glucose 132 mg/dL (74-106)
[2023-02-23 16:33] LABS: Bedside Glucose 143 mg/dL (74-106)
[2023-02-23 20:39] LABS: Bedside Glucose 141 mg/dL (74-106)
[2023-02-23] MEDS: hydrALAZINE 20 MG/ML Vial 10 MG IV (21:49)
[2023-02-24 04:00] VITALS: BP 157/84; PULSE 80; RESP 18; TEMP 36.6; O2SAT 96
[2023-02-24] MEDS: 0.9% Normal Saline (1000mL) 1,000 ML 40 ML IV (04:11)
[2023-02-24] MEDS: Heparin Injection (Vial) 5,000 UNIT/ML VIAL 5000 UNIT SC ×3 (04:57→20:59)
[2023-02-24] MEDS: Ondansetron 4 MG/2 ML Vial IV ×3 (04:57→18:51)
[2023-02-24 06:36] LABS: Bedside Glucose 139 mg/dL (74-106)
[2023-02-24 06:53] LABS: Absolute Lymphocyte Count 0.58 X10^3/uL (0.83-4.51); Absolute Neutrophil Count 9.1 X10^3/uL (2.0-7.7); Basophil# 0.02 X10^3/uL; Basophil% 0.2 % (0-1); Eosinophil# 0.02 X10^3/uL; Eosinophils% 0.2 % (0-5); Hematocrit 35.1 % (40-54); Hemoglobin 11.2 g/dL (13.0-16.5); Lymphocyte # 0.58 X10^3/ul (0.83-4.51); Lymphocyte % 5.4 % (19-41); Mean Corp Hgb Conc 31.9 g/dL (32-36); Mean Corpuscular Hgb 26.6 pg (27.0-32.0); Mean Corpuscular Volume 83.4 fL (80-94); Mean Platelet Vol. 9.9 fl (6.2-12.0); Monocyte# 0.91 X10^3/uL; Monocyte% 8.5 % (0-10); NRBC Flagged by Analyzer 0 % (0-5); Neutrophil # 9.08 X10^3/uL (2.7-7.7); Neutrophil % 84.4 % (47-70); POSITIVE DIFFERENTIAL YES; Platelet Count 303 K/mm3 (150-450); RBC Distribution Width CV 14.9 % (11.6-14.6); RBC Distribution Width SD 44.8 fl (35.1-43.9); Red Blood Count 4.21 M/mm3 (4.6-6.2); White Blood Count 10.8 K/mm3 (4.4-11.0)
[2023-02-24 06:58] LABS: Differential Indicated SCAN CRITERIA MET
[2023-02-24 07:15] LABS: Anion Gap 10 (5-15); BUN 22 mg/dL (7-18); Calcium,Total 8.4 mg/dL (8.5-10.1); Chloride 115 mmol/L (98-107); Creatinine, Serum 1.47 mg/dL (0.70-1.30); EST Glomerular Filtration Rate 49 mL/min (>60); Est Glom Filt Rate - Afr Amer 59 mL/min (>60); Estimated Creatinine Clearance 41.38 ml/min; Glucose 142 mg/dL (74-106); Potassium 2.8 mmol/L (3.5-5.1); Sodium Level 144 mmol/L (136-145)
[2023-02-24 07:20] LABS: Differential Comment SCANNED
--- NOTE | 2023-02-24 07:35 | CT_ITS ---
HISTORY: SBO, recent surgery. TECHNIQUE: Helically acquired images were obtained of the abdomen and pelvis after the intravenous administration of 100mL Isovue-370. A radiation dose optimization technique was used for this scan. 454 images. COMPARISON: XR same day, CT 02/19/2023. FINDINGS: Motion artifact lowers the sensitivity of the examination. LOWER CHEST: Calcified granuloma in the right middle lobe. Mild dependent atelectasis in the right middle and lower lobes with mild pleural effusion. Mild dependent and alveolar opacities with air bronchograms in the left lower lobe with trace pleural effusion. BOWEL: Dilated fluid-filled distal esophagus with increased fluid dilatation of the stomach. Mildly increased dilatation of air-fluid levels in small bowel with transition in caliber distally in the left lower quadrant. Appendix not visualized. Contrast reaches the colon. Left lower quadrant colostomy with rectosigmoid resection. PERITONEUM: Trace extraluminal air in the anterior pelvis. Trace free fluid. LIVER: No enhancing mass. Small portal perfusion defect or focal fatty infiltration again noted. GALLBLADDER/BILIARY TREE: Cholecystectomy with unchanged biliary ductal dilatation. SPLEEN/PANCREAS/ADRENAL GLANDS: Homogeneous and nonenlarged. KIDNEYS: Bilateral ureteral stents in place.Unchanged left hydronephrosis with cortical thinning. No right hydronephrosis. Right renal scarring with cyst again seen. VESSELS: No abdominal aortic aneurysm. Atherosclerosis of the abdominal aorta and its major branches. Small retroperitoneal lymph nodes not pathologically enlarged. PELVIC ORGANS: Guthrie catheter and air again seen in the partially decompressed and thick-walled bladder. Prostate radiotherapy seeds. ABDOMINAL WALL: Fat-containing inguinal hernias. Subcutaneous edema. BONES: Degenerative change. CT/Abdomen/Pelvis W IV Cont ONLY IMPRESSION: Worsening partial small bowel obstruction with increased dilatation of small bowel, left lower quadrant transition zone, and oral contrast exiting the left lower quadrant colostomy. Trace free fluid. Trace free extraluminal air in the anterior pelvis, which may be postoperative rather than related to bowel perforation or peritonitis. Bilateral ureteral stents in place with unchanged moderate left hydronephrosis. Persistent bladder wall thickening. Bibasilar atelectasis and pneumonia with mild pleural effusions. Cholecystectomy with unchanged biliary ductal dilatation. Electronically Signed: Mercedes Holloway MD at 8:43 EDT ,
--- NOTE | 2023-02-24 07:35 | PCM.PN.HOSP ---
Reason for Visit Reason for Visit: Diagnoses Partial intestinal obstruction, unspecified as to cause (02/19/23) Subjective Subjective Vomiting overnight. NGT replaced. Objective Data Objective Data Vital Signs: Vital Signs Temp Pulse Resp BP Pulse Ox O2 Del Method O2 Flow Rate 36.6 C 80 18 157/84 H 96 Room Air 1 02/24/23 04:00 02/24/23 04:00 02/24/23 04:00 02/24/23 04:00 02/24/23 04:00 02/24/23 04:00 02/21/23 23:56 Oxygen Flow Rate (L/min) 1 Oxygen Delivery Method Room Air Weight: 90.718 kg Body Mass Index (BMI) 28.7 Intake & Output: Intake and Output for Last 24 Hours 02/22/23 02/23/23 02/24/23 23:59 23:59 23:59 Intake Total 3685.00 / 3685.00 2687.08 / 2687.08 750.67 / 750.67 Output Total 2550 / 2550 1400 / 1700 1050 / 1050 Balance 1135.00 / 1135.00 1287.08 / 987.08 -299.33 / -299.33 Lab / Micro Data 02/24/23 06:30 02/24/23 06:30 Labs: Laboratory Results - last 24 hr 02/23/23 06:42: POC Glucose 153 H 02/23/23 11:49: POC Glucose 132 H 02/23/23 16:05: POC Glucose 143 H 02/23/23 20:17: POC Glucose 141 H 02/24/23 06:19: POC Glucose 139 H 02/24/23 06:30: WBC 10.8, RBC 4.21 L, Hgb 11.2 L, Hct 35.1 L, MCV 83.4, MCH 26.6 L, MCHC 31.9 L, RDW Std Deviation 44.8 H, RDW Coeff of Edmar 14.9 H, Plt Count 303, MPV 9.9, Immature Gran % (Auto) 1.300 H, Neut % (Auto) 84.4 H, Lymph % (Auto) 5.4 L, [place] % (Auto) 8.5, Eos % (Auto) 0.2, Baso % (Auto) 0.2, Absolute Neuts (auto) 9.1 H, Absolute Lymphs (auto) 0.58 L, Nucleated RBC % 0, Differential Comment SCANNED, Sodium 144, Potassium 2.8 L, Chloride 115 H, Carbon Dioxide 19.0 L, Anion Gap 10, BUN 22 H, Creatinine 1.47 H, Estim Creat Clear Calc 41.38, Est GFR (MDRD) Af Amer 59 L, Est GFR (MDRD) Non-Af 49 L, BUN/Creatinine Ratio 15.0, Glucose 142 H, Calcium 8.4 L Physical Exam Const alert and no apparent distress Resp normal respiratory effort, no retractions, no use of accessory muscles and clear to auscultation bilaterally Cardio regular rate, regular rhythm, S1 normal heart sound and S2 normal heart sound GI GI Narrative: distended. Auscultation: hypoactive bowel sounds Neuro Sensorium / Orientation: awake and alert Assessment & Plan Assessment/Plan (1) Partial small bowel obstruction: PLAN: s/p LAURA on 02/21. GS following. NGT replaced on 02/24 (2) HTN (hypertension): QUALIFIERS: Hypertension type: primary hypertension Qualified Code(s): I10 - Essential (primary) hypertension PLAN: add PRN hydralazine since he now NPO. PLAN: Plan Chronic conditions: essential hypertension: continue losartan, metoprolol succinate, HCTZ, hydralazine type 2 diabetes-patient's blood sugars were monitored, sliding scale insulin will be given if necessary. Metformin on hold osteoarthritis of the left knee-status post total knee replacement postop day #7-PT and OT are seeing patient, he will return to TCU when medically stable, he does not need preapproval to go back to TCU. He was on apixaban for VTE prophylaxis from this surgery. hyperlipidemia-resume statin VTE prophylaxis: Charges/Coding Visit Charges Inpatient E&M: 33457 Subs Hosp L2
--- NOTE | 2023-02-24 07:40 | RAD_ITS ---
HISTORY: postoperative ileus. TECHNIQUE: XR Abdomen 1 View. COMPARISON: 02/21/2023. FINDINGS: BOWEL GAS PATTERN: Nasogastric tube removed. Multiple dilated small bowel loops again seen with interval passage of oral contrast into the ascending, transverse, and descending colon FREE AIR: Not assessed on supine view. SOFT TISSUES: Right upper quadrant surgical clips. Bilateral ureteral stents. RAD/Abdomen Single View (Portable) IMPRESSION: Persistent partial small bowel obstruction or ileus with interval passage of contrast into the colon. Electronically Signed: Mercedes Holloway MD at 8:51 EDT ,
[2023-02-24 08:40] VITALS: BP 186/95; PULSE 83; RESP 20; TEMP 37.1; O2SAT 93
--- NOTE | 2023-02-24 08:48 | NURSING ---
Ng placed per Dr. Michele orders. Enrico ordered at this time.
--- NOTE | 2023-02-24 08:50 | RAD_ITS ---
HISTORY: NG tube placement. TECHNIQUE: XR Abdomen 1 View. COMPARISON: 07:43. FINDINGS: BOWEL GAS PATTERN: Nasogastric tube tip in the mid abdomen at the level of the distal stomach. Gaseous dilatation of stomach and small bowel again seen. Oral contrast reaches the colon. FREE AIR: No gross free air seen on upright view. SOFT TISSUES: Cholecystectomy and bilateral ureteral stents noted with residual contrast in the dilated left renal collecting system. RAD/Abdomen Single View (Portable) IMPRESSION: Satisfactory appearance of nasogastric tube. Electronically Signed: Mercedes Holloway MD at 9:07 EDT ,
[2023-02-24] MEDS: Potassium Chloride 10mEq/100mL 10 MEQ/100 ML IV.SOLN. 100 MEQ IV BOLUS ×4 (08:51→13:43)
--- NOTE | 2023-02-24 10:11 | NURSING ---
NG to Suction and immediately had 700cc of olive green color drainage. Dr. Michele here with pt
[2023-02-24 10:21] VITALS: BP 170/96; PULSE 89
--- NOTE | 2023-02-24 10:21 | NURSING ---
This RN is aware of Vital Signs taken by [facility] [employer] Laminator/Itzel from this Morning. This RN rechecked bp at this time. See Vital Sign Intervention.
[2023-02-24] MEDS: Pantoprazole Sodium 40 MG in 0.9% Normal Saline (100mL MB+) 100 ML 330 MG IV (11:28)
--- NOTE | 2023-02-24 11:28 | NURSING ---
Potassium and protonix compatible per clinical pharmocology.
--- NOTE | 2023-02-24 13:07 | PN.SURG_ITS ---
Subjective Subjective Patient was having vomiting overnight. He still does report some liquid came out of his colostomy. He also reports bloating and abdominal pain. Objective Data Objective Data Vital Signs: Vital Signs Temp Pulse Resp BP Pulse Ox O2 Del Method O2 Flow Rate 98.8 F 89 20 H 170/96 H 93 Room Air 1 02/24/23 08:40 02/24/23 10:21 02/24/23 08:40 02/24/23 10:21 02/24/23 08:40 02/24/23 08:45 02/21/23 23:56 Oxygen Flow Rate (L/min) 1 Oxygen Delivery Method Room Air Weight: 200 lb Body Mass Index (BMI) 28.7 Intake & Output: Intake and Output for Last 24 Hours 02/22/23 02/23/23 02/24/23 23:59 23:59 23:59 Intake Total 3685.00 / 3685.00 2687.08 / 2687.08 1301.34 / 1301.34 Output Total 2550 / 2550 1400 / 1700 1050 / 1050 Balance 1135.00 / 1135.00 1287.08 / 987.08 251.34 / 251.34 Lab / Micro Data 02/24/23 06:30 02/24/23 06:30 Labs: Laboratory Results - last 24 hr 02/23/23 16:05: POC Glucose 143 H 02/23/23 20:17: POC Glucose 141 H 02/24/23 06:19: POC Glucose 139 H 02/24/23 06:30: WBC 10.8, RBC 4.21 L, Hgb 11.2 L, Hct 35.1 L, MCV 83.4, MCH 26.6 L, MCHC 31.9 L, RDW Std Deviation 44.8 H, RDW Coeff of [place] 14.9 H, Plt Count 303, MPV 9.9, Immature Gran % (Auto) 1.300 H, Neut % (Auto) 84.4 H, Lymph % (Auto) 5.4 L, [place] % (Auto) 8.5, Eos % (Auto) 0.2, Baso % (Auto) 0.2, Absolute Neuts (auto) 9.1 H, Absolute Lymphs (auto) 0.58 L, Nucleated RBC % 0, Differential Comment SCANNED, Sodium 144, Potassium 2.8 L, Chloride 115 H, Carbon Dioxide 19.0 L, Anion Gap 10, BUN 22 H, Creatinine 1.47 H, Estim Creat Clear Calc 41.38, Est GFR (MDRD) Af Amer 59 L, Est GFR (MDRD) Non-Af 49 L, BUN/Creatinine Ratio 15.0, Glucose 142 H, Calcium 8.4 L, Magnesium 2.0 Radiography Diagnostic Testing: Radiology Impression Abdomen/Pelvis CT 02/24/23 07:35 IMPRESSION: Worsening partial small bowel obstruction with increased dilatation of small bowel, left lower quadrant transition zone, and oral contrast exiting the left lower quadrant colostomy. Trace free fluid. Trace free extraluminal air in the anterior pelvis, which may be postoperative rather than related to bowel perforation or peritonitis. Bilateral ureteral stents in place with unchanged moderate left hydronephrosis. Persistent bladder wall thickening. Bibasilar atelectasis and pneumonia with mild pleural effusions. Cholecystectomy with unchanged biliary ductal dilatation. Electronically Signed: Mercedes Holloway MD at 8:43 EDT , KUB X-Ray 02/24/23 07:40 IMPRESSION: Persistent partial small bowel obstruction or ileus with interval passage of contrast into the colon. Electronically Signed: Mercedes Holloway MD at 8:51 EDT , KUB X-Ray 02/24/23 08:50 IMPRESSION: Satisfactory appearance of nasogastric tube. Electronically Signed: Mercedes Holloway MD at 9:07 EDT , Physical Exam Const oriented x3 and no apparent distress Resp normal respiratory effort GI soft to palpation Inspection: abdominal distention Assessment & Plan Assessment/Plan (1) Partial small bowel obstruction: PLAN: The patient had an NG tube placed this morning with over a liter of bilious output. I repeated the CT scan which does show a bowel obstruction. It appears the loop of bowel that I freed up that was attached to the colostomy is still the source of the obstruction. Somehow the contrast from the study before surgery all made through into the colon but on the CT scan today all of the contrast is in the colon but the distal small bowel is all completely collapsed and the proximal small bowel and stomach are all dilated. At this point I believe that an area of bowel would need to be resected as it must be ischemic or stenotic. I was hoping that freeing it up and opening it would allow it to decompress but it must be an intrinsic issue as the piece of bowel appears straight but it is still causing obstruction. I discussed taking him for surgery tomorrow. I also offered the patient transfer to [facility]. 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 The obstruction is just proximal to this and I would likely need to free everything up from the pelvis to perform a small bowel resection of this area. The other option would be performing small bowel bypass just proximal to the area of obstruction to just distal to the area coming out of the pelvis and perform a loop side to side bypass. I discussed both these options with him. The patient is agreeable. I discussed the risks including but not limited to bleeding, infection, need for bowel resection, injury to any pelvic organs that are attached to the bowel. Patient understands the risks. I will start him on prophylactic antibiotics to prevent translocation of bacteria as the patient has a new knee prosthesis. Patient is decompressing today via NG tube and I will take him to surgery tomorrow. I would asked the patient to have his Lovenox held tomorrow. Hold off on resuming Eliquis yet. Jose Michele MD Pager: [facility] [address] [place] [address] [address] [place] [address] Office:
[2023-02-24] MEDS: 0.9% Saline Lock 10 ML Syringe IV (13:42)
[2023-02-24 13:48] VITALS: PULSE 89
[2023-02-24] MEDS: hydrALAZINE 50 MG Tablet PO (13:48)
[2023-02-24] MEDS: Piperacil/Tazobactam 3.375 GM in 0.9% Normal Saline (50mL MB+) 50 ML IV ×2 (15:23→21:00)
[2023-02-24 15:31] VITALS: BP 174/74; PULSE 89; RESP 18; TEMP 36.5; O2SAT 95
[2023-02-24 16:46] LABS: Potassium 3.1 mmol/L (3.5-5.1)
[2023-02-24 17:51] LABS: Bedside Glucose 122 mg/dL (74-106)
[2023-02-24] MEDS: 0.9% Normal Saline (1000mL) 1,000 ML 125 ML IV (18:51)
[2023-02-24 19:03] LABS: Bedside Glucose 117 mg/dL (74-106)
[2023-02-24 20:45] VITALS: BP 167/66; PULSE 100; RESP 18; TEMP 36.6; O2SAT 95
[2023-02-24 23:13] LABS: Bedside Glucose 119 mg/dL (74-106)
[2023-02-25] VITALS (15 sets, daily range): BP systolic 124–198; BP diastolic 53–99; PULSE 84–94; RESP 16–18; TEMP 36.3–37.1; O2SAT 94–97; BMI 28.7
[2023-02-25] MEDS: Ondansetron 4 MG/2 ML Vial IV ×4 (00:15→22:55)
[2023-02-25] MEDS: 0.9% Normal Saline (1000mL) 1,000 ML 125 ML IV ×4 (03:54→23:24)
[2023-02-25] MEDS: hydrALAZINE 20 MG/ML Vial 10 MG IV (03:54)
--- NOTE | 2023-02-25 04:54 | EKG12_ITS ---
Test Reason : AM EKG Blood Pressure : / mmHG Vent. Rate : 098 BPM Atrial Rate : 098 BPM P-R Int : 122 ms QRS Dur : 140 ms QT Int : 382 ms P-R-T Axes : 050 -69 046 degrees QTc Int : 487 ms Normal sinus rhythm Right bundle branch block Left anterior fascicular block Bifascicular block Abnormal ECG When compared with ECG of 21-FEB-2023 11:03, No significant change was found Confirmed by YUE LUU, DENICE ([id number]), editor greeting card TIP [employer]IR ([id number]) on 03/03/2023 1:26:08 PM Referred By: TRIPP Confirmed By:DENICE TURNER MD
[2023-02-25] MEDS: Piperacil/Tazobactam 3.375 GM in 0.9% Normal Saline (50mL MB+) 50 ML IV ×3 (05:29→22:38)
[2023-02-25 06:47] LABS: Bedside Glucose 110 mg/dL (74-106)
[2023-02-25 07:12] LABS: Anion Gap 14 (5-15); BUN 22 mg/dL (7-18); BUN/Creat Ratio 15.3 RATIO (10-20); Calcium,Total 7.8 mg/dL (8.5-10.1); Chloride 118 mmol/L (98-107); Creatinine, Serum 1.44 mg/dL (0.70-1.30); EST Glomerular Filtration Rate 50 mL/min (>60); Est Glom Filt Rate - Afr Amer 61 mL/min (>60); Estimated Creatinine Clearance 42.25 ml/min; Glucose 119 mg/dL (74-106); Potassium 3.2 mmol/L (3.5-5.1); Sodium Level 147 mmol/L (136-145)
--- NOTE | 2023-02-25 07:25 | PN.HOSP_ITS ---
Reason for Visit Reason for Visit: Diagnoses Essential (primary) hypertension (02/19/23) Partial intestinal obstruction, unspecified as to cause (02/19/23) Subjective Subjective Still with NGT. Abdomen feeling better and less distended. Objective Data Objective Data Vital Signs: Vital Signs Temp Pulse Resp BP Pulse Ox O2 Del Method O2 Flow Rate 36.6 C 91 18 161/75 H 95 Room Air 1 02/25/23 03:30 02/25/23 03:54 02/25/23 03:30 02/25/23 04:15 02/25/23 03:30 02/25/23 03:30 02/21/23 23:56 Oxygen Flow Rate (L/min) 1 Oxygen Delivery Method Room Air Weight: 90.718 kg Body Mass Index (BMI) 28.7 Intake & Output: Intake and Output for Last 24 Hours 02/23/23 02/24/23 02/25/23 23:59 23:59 23:59 Intake Total 2687.08 / 2687.08 2430.67 / 2460.67 1140 / 1140 Output Total 1400 / 1700 3400 / 4050 1400 / 1400 Balance 1287.08 / 987.08 -969.33 / -1589.33 -260 / -260 Lab / Micro Data 02/24/23 06:30 02/25/23 06:10 Labs: Laboratory Results - last 24 hr 02/24/23 06:30: Magnesium 2.0 02/24/23 11:25: POC Glucose 122 H 02/24/23 16:25: Potassium 3.1 L 02/24/23 18:29: POC Glucose 117 H 02/24/23 20:57: POC Glucose 119 H 02/25/23 06:10: WBC Cancelled, Corrected WBC Cancelled, RBC Cancelled, Hgb Cancelled, Hct Cancelled, MCV Cancelled, MCH Cancelled, MCHC Cancelled, RDW Std Deviation Cancelled, RDW Coeff of [place]mar Cancelled, Plt Count Cancelled, MPV Cancelled, Immature Gran % (Auto) Cancelled, Neut % (Auto) Cancelled, Lymph % (Auto) Cancelled, [place] % (Auto) Cancelled, Eos % (Auto) Cancelled, Baso % (Auto) Cancelled, Absolute Neuts (auto) Cancelled, Absolute Lymphs (auto) Cancelled, Total Counted Cancelled, Neutrophils % (Manual) Cancelled, Band Neutrophils % Cancelled, Lymphocytes % (Manual) Cancelled, Monocytes % (Manual) Cancelled, E osinophils % (Manual) Cancelled, Basophils % (Manual) Cancelled, Metamyelocytes % Cancelled, Myelocytes % Cancelled, Promyelocytes % Cancelled, Blast Cells % Cancelled, Plasma Cell % (Manual) Cancelled, Other Cells % Cancelled, Nucleated RBC % Cancelled, Nucleated RBCs/100 WBC Cancelled, Differential Comment Cancelled, Diff Path Review Cancelled, Hypersegmented Neuts Cancelled, Atypical Lymphocytes Cancelled, Reactive Lymphocytes Cancelled, Smudge Cells Cancelled, Toxic Granulation Cancelled, Toxic Vacuolation Cancelled, Dohle Bodies Cancelled, Mary Kay Rods Cancelled, Platelet Estimate Cancelled, Plt Morphology Comment Cancelled, RBC Morphology Cancelled 02/25/23 06:10: RBC Morphology Cancelled, Polychromasia Cancelled, Hypochromasia Cancelled, Poikilocytosis Cancelled, Basophilic Stippling Cancelled, Anisocytosis Cancelled, Microcytosis Cancelled, Macrocytosis Cancelled, Spherocytes Cancelled, Sickle Cells Cancelled, Target Cells Cancelled, Tear Drop Cells Cancelled, Ovalocytes Cancelled, Stomatocytes Cancelled, [place] Bodies Cancelled, [place] Cells Cancelled, Bite Cells Cancelled, Crenated Cell Cancelled, Acanthocytes (Spur) Cancelled, Rouleaux Cancelled, Schistocytes Cancelled, Sodium 147 H, Potassium 3.2 L, Chloride 118 H, Carbon Dioxide 15.0 L, Anion Gap 14, BUN 22 H, Creatinine 1.44 H, Estim Creat Clear Calc 42.25, Est GFR (MDRD) Af Amer 61, Est GFR (MDRD) Non-Af 50 L, BUN/Creatinine Ratio 15.3, Glucose 119 H, Calcium 7.8 L 02/25/23 06:21: POC Glucose 110 H Radiography Diagnostic Testing: Radiology Impression Abdomen/Pelvis CT 02/24/23 07:35 IMPRESSION: Worsening partial small bowel obstruction with increased dilatation of small bowel, left lower quadrant transition zone, and oral contrast exiting the left lower quadrant colostomy. Trace free fluid. Trace free extraluminal air in the anterior pelvis, which may be postoperative rather than related to bowel perforation or peritonitis. Bilateral ureteral stents in place with unchanged moderate left hydronephrosis. Persistent bladder wall thickening. Bibasilar atelectasis and pneumonia with mild pleural effusions. Cholecystectomy with unchanged biliary ductal dilatation. Electronically Signed: Mercedes Holloway MD at 8:43 EDT , KUB X-Ray 02/24/23 07:40 IMPRESSION: Persistent partial small bowel obstruction or ileus with interval passage of contrast into the colon. Electronically Signed: Mercedes Holloway MD at 8:51 EDT , KUB X-Ray 02/24/23 08:50 IMPRESSION: Satisfactory appearance of nasogastric tube. Electronically Signed: Mercedes Holloway MD at 9:07 EDT , Physical Exam Const alert and no apparent distress HEENT head/scalp atraumatic and moist oral mucous membranes HEENT Narrative: NGT in place. Resp normal respiratory effort, no retractions, no use of accessory muscles and clear to auscultation bilaterally Cardio regular rate, regular rhythm, S1 normal heart sound and S2 normal heart sound GI GI Narrative: less distended. Assessment & Plan Assessment/Plan (1) Partial small bowel obstruction: PLAN: s/p LAURA on 02/21. GS following. NGT replaced on 02/24 Plan for OR today. (2) HTN (hypertension): QUALIFIERS: Hypertension type: primary hypertension Qualified Code(s): I10 - Essential (primary) hypertension PLAN: add PRN hydralazine since he now NPO. add scheduled enalaprilat. (3) Hypokalemia: PLAN: replaced again today. check magnesium. PLAN: Plan Chronic conditions: * essential hypertension: continue losartan, metoprolol succinate, HCTZ, hydralazine * type 2 diabetes-patient's blood sugars were monitored, sliding scale insulin will be given if necessary. Metformin on hold * osteoarthritis of the left knee-status post total knee replacement postop day #7-PT and OT are seeing patient, he will return to TCU when medically stable, he does not need preapproval to go back to TCU. He was on apixaban for VTE prophylaxis from this surgery. * hyperlipidemia-resume statin VTE prophylaxis: Charges/Coding Visit Charges Inpatient E&M: 09102 Subs Hosp L2
--- NOTE | 2023-02-25 10:16 | CASEMGMT ---
Social Work Discharge Plan is for pt to return to TCU when medically ready. Hollie in TCU updated that pt will not be ready for discharge today but does confirm he can return when medically ready. Plan: TCU, when medically ready MARY Talamantes
[2023-02-25] MEDS: Pantoprazole Sodium 40 MG in 0.9% Normal Saline (100mL MB+) 100 ML 330 MG IV (10:48)
[2023-02-25] MEDS: Potassium Chloride 10mEq/100mL 10 MEQ/100 ML IV.SOLN. 100 MEQ IV BOLUS ×4 (10:53→14:50)
--- NOTE | 2023-02-25 11:45 | NURSING ---
Patient left unit to the OR. Report given to AC charge, Antonella. All questions and concerns answered.
--- NOTE | 2023-02-25 11:47 | NURSING ---
AC Charge Nurse Antonella informed of order for midline w/ notification but no arrival of AccessRN for midline placement at this time per primary RN #[id number] PIV infusing without issue.
[2023-02-25] MEDS: Lactated Ringers 1,000 ML 15 ML IV (12:05)
[2023-02-25 12:19] LABS: Bedside Glucose 118 mg/dL (74-106)
--- NOTE | 2023-02-25 13:00 | COL_PTH ---
PATIENT: VILMA SAM LOC: MS3 U#:[id number] AGE/SX: 78/M ROOM: UT308 RE02/19/[address]: Dr. Neena Medina MD : 1945 BED: 1 DIS: 03/05/2023 SPEC #: [id number] RECD: 02/25/23 18:24 STATUS: BRUCE REMaggie #: [id number] DERREK: 02/25/23 13:[address]: Jose Michele DEPT: SURGICAL PATHOLOGY RECD BY: Yaneth Shields ENTERED: 02/28/23 07:32 SP TYPE: COLON OTHR DR: MD Dr. Hamzah Lombardi DO Dr. Mark Tereletsky, DO Dr. Nana Yaa Koram, MD Dr. Paul Nielsen, MD Tissues: Colon, NOS Procedures: Surgery Specimen Level V Comments: @ Ordering doctor for SUV edited from to @ by KIKE at 02/28/23 144 @ Submitting doctor edited from to @ by RGOOD at 02/28/23 1446 HEADER OPERATION: Exploratory laparotomy, small bowel resection PRE-OP DIAGNOSIS: Partial small bowel obstruction TISSUE SUBMITTED: Small bowel MICROSCOPIC DIAGNOSIS Small bowel, segmental resection: Serosal fibrosis, fat necrosis and vascular ectasia consistent with obstruction. Small bowel mucosa with mild nonspecific chronic inflammation. AM:sarah 03/02/2023 MICROSCOPIC DESCRIPTION Slides are reviewed. GROSS DESCRIPTION Received in fixative is one container labeled with the patient's name and designated small bowel. The specimen consists of a segment of small bowel measuring 56.0 cm in length. The center portion of the serosal surface shows dusky appearance. Focal adhesions are noted from one segment of the small bowel to the other segment in the center portion of the small bowel. The small bowel focally narrows up to 1.5 cm in diameter. Other portion of the small bowel measures up to 3.0 cm in diameter. Both resection margins are stapled. No mass lesion is identified. The central portion of the small bowel with adhesion to one segment to another segment shows flattened villi and measures 0.1 cm in thickness. The bowel in the peripheral portion measures up to 0.4 cm in thickness. A donut-shaped piece of bowel tissue is also noted measuring 4.0 x 1.0 x 1.0 cm. Sections will be submitted after fixation. / SJ:sarah 02/28/2023 Detached piece of bowel tissue shows multiple sammi. Sections of the mesenteric tissue do not reveal any obviously enlarged lymph node. Soaker Soda Worker sections are submitted in six cassettes as follows: 1??detached piece of bowel tissue, 2 - proximal and distal resection margins, 3 & 4 - central portion of the bowel, 5 - floor representative section from the peripheral portion of the uninvolved bowel, 6 - mesenteric tissue. / NIELS:sarah 03/01/2023 TC:3 CPT: 58717
[2023-02-25] MEDS: Bupivacaine Mpf 0.5% 30 ML VIAL (14:55)
--- NOTE | 2023-02-25 15:03 | PCM.OPRPT ---
Report of Operation Date of Procedure: 02/25/23 Pre-Operative Diagnosis: Small bowel obstruction Post-Operative Diagnosis: Small bowel obstruction Surgery/Procedure Performed:: Exploratory laparotomy with resection of small bowel Description of Surgical Findings:: Small bowel stenosis and obstruction in the pelvis Type of Anesthesia: General/Regional Specimen's removed: Small bowel segment Estimated Blood Loss (mL): 20 Description of Procedure: Patient was brought back to the operating room and general anesthesia was induced. The abdomen was prepped and draped in usual sterile fashion. An incision was made from just above the umbilicus down to the pubic symphysis and this was deepened to the fascia. The fascia was elevated and incised and the abdomen was entered. A finger sweep was performed and there were no adhesions. The fascia was opened superiorly and inferiorly along the length of the incision. A wound protector was then placed. The small bowel was traced down to the pelvis where it became obstructed. Using lots of finger fracture I was able to free up the small bowel from the pelvis after a lot of dissection. The small bowel that was in the pelvis was very stenotic and appeared to be only the diameter of my pinky finger. Distal to that the bowel appeared normal decompressed. Proximal to this it was distended. The decision was made to resect this entire area. ALDA stapler was used proximally to divide the dilated small bowel. Distally beyond the area that was stuck in the pelvis the small bowel was divided using ALDA stapler. There was a lot of length of small bowel between the anastomosis and the ileocecal valve. Next using LigaSure impact the small bowel was removed from its mesentery. It was sent for pathology. The corners of each staple line were removed and the ends of the small bowel were anastomosed in a [id number] functional end-to-end fashion. The staple line was inspected and appeared to have no bleeding. The he was closed with a [place] 60 stapler. Crotch suture was placed with 3-0 silk. The abdomen was irrigated and suctioned dry. The pelvis was inspected. There was oozing from his radiation throughout the pelvis but there was no pulsatile bleeding. The area was irrigated and suctioned dry. The bowel was returned to the abdomen and the wound protector was removed. The gloves were all changed to the surgical staff and then the fascia was closed in a running fashion from top and bottom meeting in the middle with #1 PDS suture. The skin was injected with local anesthetic and then closed with sammi. Dressing was applied. Patient was taken to PACU in stable condition. Admit VTE Documentation VTE Mechan Device Prophylaxis: SCD's
[2023-02-25 16:46] LABS: Bedside Glucose 122 mg/dL (74-106)
[2023-02-25 17:44] LABS: Bedside Glucose 138 mg/dL (74-106)
[2023-02-25] MEDS: Enalaprilat 1.25 MG/ML Vial 0.625 MG IV ×2 (18:45→22:37)
[2023-02-25] MEDS: 0.9% Saline Lock 10 ML Syringe IV ×3 (22:29→22:55)
[2023-02-25] MEDS: Morphine 2 MG/ML Syringe IV (22:30)
[2023-02-26] VITALS (15 sets, daily range): BP systolic 150–209; BP diastolic 55–76; PULSE 79–104; RESP 18–20; TEMP 36.4–37.4; O2SAT 95–100
[2023-02-26 00:15] LABS: Bedside Glucose 114 mg/dL (74-106)
[2023-02-26] MEDS: Morphine 2 MG/ML Syringe IV ×2 (02:38→14:40)
[2023-02-26] MEDS: 0.9% Saline Lock 10 ML Syringe IV ×3 (02:43→07:10)
[2023-02-26] MEDS: Ondansetron 4 MG/2 ML Vial IV ×3 (05:54→18:44)
[2023-02-26] MEDS: Enalaprilat 1.25 MG/ML Vial 0.625 MG IV ×3 (05:54→18:39)
[2023-02-26] MEDS: Piperacil/Tazobactam 3.375 GM in 0.9% Normal Saline (50mL MB+) 50 ML IV ×3 (05:54→22:31)
[2023-02-26 06:45] LABS: Bedside Glucose 137 mg/dL (74-106)
[2023-02-26 07:00] LABS: Absolute Lymphocyte Count 0.45 X10^3/uL (0.83-4.51); Absolute Neutrophil Count 9.7 X10^3/uL (2.0-7.7); Basophil# 0.02 X10^3/uL; Basophil% 0.2 % (0-1); Eosinophil# 0.01 X10^3/uL; Eosinophils% 0.1 % (0-5); Hemoglobin 10.4 g/dL (13.0-16.5); Lymphocyte # 0.45 X10^3/ul (0.83-4.51); Lymphocyte % 3.9 % (19-41); Mean Corp Hgb Conc 30.6 g/dL (32-36); Mean Corpuscular Hgb 26.3 pg (27.0-32.0); Mean Corpuscular Volume 86.1 fL (80-94); Mean Platelet Vol. 10.7 fl (6.2-12.0); Monocyte# 1.08 X10^3/uL; Monocyte% 9.4 % (0-10); NRBC Flagged by Analyzer 0 % (0-5); Neutrophil # 9.73 X10^3/uL (2.7-7.7); Neutrophil % 85.1 % (47-70); POSITIVE DIFFERENTIAL YES; Platelet Count 261 K/mm3 (150-450); RBC Distribution Width CV 15.9 % (11.6-14.6); RBC Distribution Width SD 48.8 fl (35.1-43.9); Red Blood Count 3.95 M/mm3 (4.6-6.2); White Blood Count 11.4 K/mm3 (4.4-11.0)
[2023-02-26 07:06] LABS: Differential Indicated SCAN CRITERIA MET
[2023-02-26] MEDS: hydrALAZINE 20 MG/ML Vial 10 MG IV ×2 (07:09→20:51)
[2023-02-26 07:43] LABS: Anion Gap 12 (5-15); BUN 20 mg/dL (7-18); BUN/Creat Ratio 12.8 RATIO (10-20); Calcium,Total 7.9 mg/dL (8.5-10.1); Chloride 122 mmol/L (98-107); Creatinine, Serum 1.56 mg/dL (0.70-1.30); EST Glomerular Filtration Rate 46 mL/min (>60); Est Glom Filt Rate - Afr Amer 55 mL/min (>60); Glucose 130 mg/dL (74-106); Magnesium 2.1 mg/dL (1.6-2.6); Potassium 3.2 mmol/L (3.5-5.1); Sodium Level 149 mmol/L (136-145)
--- NOTE | 2023-02-26 08:26 | PN.HOSP_ITS ---
Reason for Visit Reason for Visit: Diagnoses Hypokalemia (02/19/23) Essential (primary) hypertension (02/19/23) Partial intestinal obstruction, unspecified as to cause (02/19/23) Subjective Subjective Feeling ok post op. Objective Data Objective Data Vital Signs: Vital Signs Temp Pulse Resp BP Pulse Ox O2 Del Method O2 Flow Rate 37.4 C H 99 20 H 209/72 H 96 Room Air 1 02/26/23 05:49 02/26/23 07:09 02/26/23 07:06 02/26/23 07:09 02/26/23 07:06 02/26/23 07:06 02/21/23 23:56 Oxygen Flow Rate (L/min) 1 Oxygen Delivery Method Room Air Weight: 90.7 kg Body Mass Index (BMI) 28.7 Intake & Output: Intake and Output for Last 24 Hours 02/24/23 02/25/23 02/26/23 23:59 23:59 23:59 Intake Total 2430.67 / 2460.67 5503.75 / 5503.75 140 / 140 Output Total 3400 / 4050 2710 / 2710 600 / 600 Balance -969.33 / -1589.33 2793.75 / 2793.75 -460 / -460 Lab / Micro Data 02/26/23 05:45 02/26/23 05:45 Labs: Laboratory Results - last 24 hr 02/25/23 11:07: POC Glucose 118 H 02/25/23 15:35: POC Glucose 122 H 02/25/23 17:15: POC Glucose 138 H 02/25/23 21:54: POC Glucose 114 H 02/26/23 05:45: WBC 11.4 H, RBC 3.95 L, Hgb 10.4 L, Hct 34.0 L, MCV 86.1, MCH 26.3 L, MCHC 30.6 L, RDW Std Deviation 48.8 H, RDW Coeff of [place] 15.9 H, Plt Count 261, MPV 10.7, Immature Gran % (Auto) 1.300 H, Neut % (Auto) 85.1 H, Lymph % (Auto) 3.9 L, [place] % (Auto) 9.4, Eos % (Auto) 0.1, Baso % (Auto) 0.2, Absolute Neuts (auto) 9.7 H, Absolute Lymphs (auto) 0.45 L, Nucleated RBC % 0, Sodium 149 H, Potassium 3.2 L, Chloride 122 H, Carbon Dioxide 15.0 L, Anion Gap 12, BUN 20 H, Creatinine 1.56 H, Estim Creat Clear Calc 39.00, Est GFR (MDRD) Af Amer 55 L, Est GFR (MDRD) Non-Af 46 L, BUN/Creatinine Ratio 12.8, Glucose 130 H, Calcium 7.9 L, Magnesium 2.1 02/26/23 06:17: POC Glucose 137 H Physical Exam Const alert and no apparent distress HEENT head/scalp atraumatic and moist oral mucous membranes Resp normal respiratory effort, no retractions, no use of accessory muscles and clear to auscultation bilaterally Cardio regular rate, regular rhythm, S1 normal heart sound and S2 normal heart sound GI GI Narrative: distended. Auscultation: hypoactive bowel sounds Extremity normal to inspection Neuro Sensorium / Orientation: awake and alert Assessment & Plan Assessment/Plan (1) Partial small bowel obstruction: PLAN: s/p LAURA on 02/21. NGT replaced on 02/24. 02/25 Ex lap with resection of small bowel. mgmt per GS If failure to progress, may need to consider TPN. (2) HTN (hypertension): QUALIFIERS: Hypertension type: primary hypertension Qualified Code(s): I10 - Essential (primary) hypertension PLAN: add PRN hydralazine since he now NPO. add scheduled enalaprilat. BP still very high, will add IV metoprolol. May need to increase enalaprilat if that fails to yield results. Pt placed on telemetry because of the IV metoprolol. If persists, may consider clonidine patch. (3) Hypokalemia: PLAN: ongoing replace again today. magnesium WNL (4) Hypernatremia: PLAN: pt has been on LR since the . change to 0.45 NS monitor PLAN: Plan Chronic conditions: * type 2 diabetes-patient's blood sugars were monitored, sliding scale insulin will be given if necessary. Metformin on hold * osteoarthritis of the left knee-status post total knee replacement postop day #7-PT and OT are seeing patient, he will return to TCU when medically stable, he does not need preapproval to go back to TCU. He was on apixaban for VTE prophylaxis from this surgery. * hyperlipidemia-resume statin when able VTE prophylaxis: I discussed with the patient's at bedside. She is concerned by the patient being depressed. She had mentioned that he is ready for things to be over. Just recommend her to be continue to be encouraging and to listen to what he has to say. Anticipate a long recovery overall. Charges/Coding Visit Charges Inpatient E&M: 35590 Subs Hosp L2
--- NOTE | 2023-02-26 08:28 | PN.SURG_ITS ---
Subjective Subjective Patient seen and examined during AM rounds. He is found sitting out of bed in the chair. He states that he was in significant discomfort in bed but is feeling better in the chair. He denies any feelings of passage of gas into his ostomy appliance. He denies an appetite this morning. Objective Data Objective Data Vital Signs: Vital Signs Temp Pulse Resp BP Pulse Ox O2 Del Method O2 Flow Rate 99.3 F H 99 20 H 209/72 H 96 Room Air 1 02/26/23 05:49 02/26/23 07:09 02/26/23 07:06 02/26/23 07:09 02/26/23 07:06 02/26/23 07:06 02/21/23 23:56 Oxygen Flow Rate (L/min) 1 Oxygen Delivery Method Room Air Weight: 199 lb 15.348 oz Body Mass Index (BMI) 28.7 Intake & Output: Intake and Output for Last 24 Hours 02/24/23 02/25/23 02/26/23 23:59 23:59 23:59 Intake Total 2430.67 / 2460.67 5503.75 / 5503.75 140 / 140 Output Total 3400 / 4050 2710 / 2710 600 / 600 Balance -969.33 / -1589.33 2793.75 / 2793.75 -460 / -460 Lab / Micro Data 02/26/23 05:45 02/26/23 05:45 Labs: Laboratory Results - last 24 hr 02/25/23 11:07: POC Glucose 118 H 02/25/23 15:35: POC Glucose 122 H 02/25/23 17:15: POC Glucose 138 H 02/25/23 21:54: POC Glucose 114 H 02/26/23 05:45: WBC 11.4 H, RBC 3.95 L, Hgb 10.4 L, Hct 34.0 L, MCV 86.1, MCH 26.3 L, MCHC 30.6 L, RDW Std Deviation 48.8 H, RDW Coeff of [place] 15.9 H, Plt Count 261, MPV 10.7, Immature Gran % (Auto) 1.300 H, Neut % (Auto) 85.1 H, Lymph % (Auto) 3.9 L, [place] % (Auto) 9.4, Eos % (Auto) 0.1, Baso % (Auto) 0.2, Absolute Neuts (auto) 9.7 H, Absolute Lymphs (auto) 0.45 L, Nucleated RBC % 0, Sodium 149 H, Potassium 3.2 L, Chloride 122 H, Carbon Dioxide 15.0 L, Anion Gap 12, BUN 20 H, Creatinine 1.56 H, Estim Creat Clear Calc 39.00, Est GFR (MDRD) Af Amer 55 L, Est GFR (MDRD) Non-Af 46 L, BUN/Creatinine Ratio 12.8, Glucose 130 H, Calcium 7.9 L, Magnesium 2.1 02/26/23 06:17: POC Glucose 137 H Physical Exam Const oriented x3 Constitutional Narrative: Appears somewhat frail and in mild discomfort Resp normal respiratory effort GI GI Narrative: Mildly distended, operative dressings intact, minimally tender to palpation about incisions. Ostomy appliance in place in the left lower quadrant without output. NG tube in place with minimal, thin, brown aspirate Assessment & Plan Assessment/Plan (1) Partial small bowel obstruction: PLAN: Patient is an 78-year-old male postoperative days 1 and 5 from diagnostic laparoscopy with lysis of adhesions followed by ex lap and small bowel resection yesterday. Patient exhibits significant hypertension and low-grade fever this morning. He states that he had some initial difficulty with postoperative pain control but this is now improved. We continue to await return of bowel function, but his nasogastric tube output is minimal. His abdominal exam is as expected. Discussed management of patient's hypertension with hospitalist service and they have already look to transition him to intravenous formulations of his antihypertensives. Additionally, patient appears to have a developing metabolic acidosis and I have transitioned him from normal saline to lactated Ringer's to work to slowly correct this in light of patient's chronic kidney disease. Plan: ? Continue optimization of patient's postoperative pain control ? Agree with transition to IV hydralazine and metoprolol and patient's unknown enteral absorption ? Continue to keep patient out of bed in a chair and mobilize as tolerated ? Continue n.p.o. status with nasogastric tube to intermittent low wall suction ? Continue to hold anticoagulation and obtain repeat a.m. labs ? Replete potassium?already ordered by Dr. Bob Charges/Coding Visit Charges Inpatient E&M: 87757 Subs Hosp L2
[2023-02-26 09:29] LABS: ALB/GLOB Ratio 0.7 RATIO (0.9-2.4); AST(SGOT) 19 U/L (15-37); Alanine Aminotransfer ALT/SGPT 51 U/L (16-61); Albumin, Serum 2.2 g/dL (3.2-5.0); Alkaline Phosphatase 85 U/L (45-117); Protein, Total 5.2 g/dL (6.4-8.2)
[2023-02-26] MEDS: Pantoprazole Sodium 40 MG in 0.9% Normal Saline (100mL MB+) 100 ML 330 MG IV (09:48)
[2023-02-26] MEDS: Lactated Ringers 1,000 ML 125 ML IV (09:54)
[2023-02-26] MEDS: Potassium Chloride 10mEq/100mL 10 MEQ/100 ML IV.SOLN. 100 MEQ IV BOLUS ×4 (10:30→13:33)
[2023-02-26] MEDS: Menthol/Lanolin/Calamine/Znox 113 GM Tube 1 APPLIC TOPICAL ×2 (10:33→22:26)
[2023-02-26 12:15] LABS: Bedside Glucose 143 mg/dL (74-106)
[2023-02-26] MEDS: 0.45% Normal Saline 1,000 ML 100 ML IV ×2 (12:21→22:20)
[2023-02-26] MEDS: Metoprolol Tartrate 5 MG/5 ML Vial IV ×2 (12:22→18:41)
[2023-02-26 15:16] LABS: Differential Comment SCANNED
[2023-02-26 16:15] LABS: Bedside Glucose 154 mg/dL (74-106)
[2023-02-26 16:43] LABS: Mucous, Urine 0 SEEN /hpf (<or=2+)
[2023-02-26 16:53] LABS: Color, Urine Yellow (Yellow); Glucose, Dipstick Normal (Normal); Ketone-Dipstick 50 mg/dl (Negative); Leukocyte Esterase-Dipstick 500 /ul (Negative); Nitrite-Dipstick Negative (Negative); Occult Blood-Urine 250 /ul (Negative); Protein-Dipstick 100 mg/dl (Negative); Urine Bilirubin Dipstick Negative (Negative); Urine Clarity Cloudy (Clear); Urine Urobilinogen Normal (Normal)
[2023-02-26 17:06] LABS: Bacteria 1+ /hpf (None Seen); Red Blood Cells-Urine 50-100 SEEN /hpf (0-5); Squamous Epithelial Cells - UA 0-5 SEEN /hpf (0-5); White Blood Cells >100 SEEN /hpf (0-5)
[2023-02-26 17:08] LABS: Fine Granular Cast- Urine 0-5 SEEN /lpf (0-5)
[2023-02-26] MEDS: Insulin Lispro 100 UNIT/ML INSULN.PEN SC (18:38)
[2023-02-26 22:57] LABS: Bedside Glucose 150 mg/dL (74-106)
[2023-02-27] VITALS (14 sets, daily range): BP systolic 148–197; BP diastolic 62–81; PULSE 78–102; RESP 16–19; TEMP 36.2–36.6; O2SAT 95–97
[2023-02-27] MEDS: Metoprolol Tartrate 5 MG/5 ML Vial IV ×5 (00:19→23:12)
[2023-02-27] MEDS: Enalaprilat 1.25 MG/ML Vial 0.625 MG IV ×2 (00:20→06:14)
[2023-02-27] MEDS: Ondansetron 4 MG/2 ML Vial IV ×5 (00:20→23:13)
[2023-02-27] MEDS: 0.9% Normal Saline (250mL Bag) 250 ML 15 ML IV (06:07)
[2023-02-27] MEDS: Piperacil/Tazobactam 3.375 GM in 0.9% Normal Saline (50mL MB+) 50 ML IV ×3 (06:07→23:13)
[2023-02-27 06:55] LABS: Absolute Lymphocyte Count 0.41 X10^3/uL (0.83-4.51); Absolute Neutrophil Count 10.1 X10^3/uL (2.0-7.7); Basophil# 0.01 X10^3/uL; Basophil% 0.1 % (0-1); Eosinophil# 0.06 X10^3/uL; Eosinophils% 0.5 % (0-5); Hematocrit 28.7 % (40-54); Hemoglobin 9.2 g/dL (13.0-16.5); Lymphocyte # 0.41 X10^3/ul (0.83-4.51); Lymphocyte % 3.5 % (19-41); Mean Corp Hgb Conc 32.1 g/dL (32-36); Mean Corpuscular Hgb 27.4 pg (27.0-32.0); Mean Corpuscular Volume 85.4 fL (80-94); Mean Platelet Vol. 10.1 fl (6.2-12.0); Monocyte# 1.05 X10^3/uL; Monocyte% 8.9 % (0-10); NRBC Flagged by Analyzer 0 % (0-5); Neutrophil # 10.11 X10^3/uL (2.7-7.7); POSITIVE DIFFERENTIAL YES; Platelet Count 207 K/mm3 (150-450); RBC Distribution Width CV 16.5 % (11.6-14.6); RBC Distribution Width SD 50.8 fl (35.1-43.9); Red Blood Count 3.36 M/mm3 (4.6-6.2); White Blood Count 11.8 K/mm3 (4.4-11.0)
[2023-02-27 06:59] LABS: Differential Indicated SCAN CRITERIA MET
--- NOTE | 2023-02-27 07:23 | PN.HOSP_ITS ---
Reason for Visit Reason for Visit: Diagnoses Hyperosmolality and hypernatremia (02/19/23) Hypokalemia (02/19/23) Essential (primary) hypertension (02/19/23) Partial intestinal obstruction, unspecified as to cause (02/19/23) Subjective Subjective NGT clamped. Minimal output in ostomy. Objective Data Objective Data Vital Signs: Vital Signs Temp Pulse Resp BP Pulse Ox O2 Del Method O2 Flow Rate 36.6 C 97 16 197/67 H 95 Room Air 1 02/27/23 03:34 02/27/23 06:14 02/27/23 03:34 02/27/23 06:14 02/27/23 03:34 02/27/23 03:34 02/21/23 23:56 Oxygen Flow Rate (L/min) 1 Oxygen Delivery Method Room Air Weight: 90.7 kg Body Mass Index (BMI) 28.7 Intake & Output: Intake and Output for Last 24 Hours 02/25/23 02/26/23 02/27/23 23:59 23:59 23:59 Intake Total 5503.75 / 5503.75 3225.83 / 3255.83 110 / 110 Output Total 2710 / 2710 1250 / 1250 850 / 850 Balance 2793.75 / 2793.75 1975.83 / 2005.83 -740 / -740 Lab / Micro Data 02/27/23 06:40 02/27/23 06:40 Labs: Laboratory Results - last 24 hr 02/26/23 05:45: Differential Comment SCANNED, Sodium 149 H 02/26/23 05:45: Sodium Cancelled, Potassium 3.2 L 02/26/23 05:45: Potassium Cancelled, Chloride 122 H 02/26/23 05:45: Chloride Cancelled, Carbon Dioxide 15.0 L 02/26/23 05:45: Carbon Dioxide Cancelled, Anion Gap 12 02/26/23 05:45: Anion Gap Cancelled, BUN 20 H 02/26/23 05:45: BUN Cancelled, Creatinine 1.56 H 02/26/23 05:45: Creatinine Cancelled, Estim Creat Clear Calc 39.00 02/26/23 05:45: Estim Creat Clear Calc Cancelled, Est GFR (MDRD) Af Amer 55 L 02/26/23 05:45: Est GFR (MDRD) Af Amer Cancelled, Est GFR (MDRD) Non-Af 46 L 02/26/23 05:45: Est GFR (MDRD) Non-Af Cancelled, BUN/Creatinine Ratio 12.8 02/26/23 05:45: BUN/Creatinine Ratio Cancelled, Glucose 130 H 02/26/23 05:45: Glucose Cancelled, Calcium 7.9 L 02/26/23 05:45: Calcium Cancelled, Magnesium 2.1, Total Bilirubin 0.60 02/26/23 05:45: Total Bilirubin Cancelled, AST 19 02/26/23 05:45: AST Cancelled, ALT 51 02/26/23 05:45: ALT Cancelled, Alkaline Phosphatase 85 02/26/23 05:45: Alkaline Phosphatase Cancelled, Total Protein 5.2 L 02/26/23 05:45: Total Protein Cancelled, Albumin 2.2 L 02/26/23 05:45: Albumin Cancelled, Globulin 3.0 02/26/23 05:45: Globulin Cancelled, Albumin/Globulin Ratio 0.7 L 02/26/23 05:45: Albumin/Globulin Ratio Cancelled 02/26/23 11:41: POC Glucose 143 H 02/26/23 15:52: POC Glucose 154 H 02/26/23 16:10: Urine Color Yellow, Urine Clarity Cloudy, Urine pH 5.0, Ur Specific [place] 1.020, Urine Protein 100 H, Urine Glucose (UA) Normal, Urine Ketones 50 H, Urine Occult Blood 250 H, Urine Nitrite Negative, Urine Bilirubin Negative, Urine Urobilinogen Normal, Ur Leukocyte Esterase 500 H, Urine RBC 50- 100 SEEN, Urine WBC >100 SEEN, Ur Squamous Epith Cells 0-5 SEEN, Urine Bacteria 1+, Fine Granular Casts 0-5 SEEN, Urine Mucus 0 SEEN 02/26/23 22:30: POC Glucose 150 H 02/27/23 06:40: WBC 11.8 H, RBC 3.36 L, Hgb 9.2 L, Hct 28.7 L, MCV 85.4, MCH 27.4, MCHC 32.1, RDW Std Deviation 50.8 H, RDW Coeff of [place] 16.5 H, Plt Count 207, MPV 10.1, Immature Gran % (Auto) 1.000 H, Neut % (Auto) 86.0 H, Lymph % (Auto) 3.5 L, [place] % (Auto) 8.9, Eos % (Auto) 0.5, Baso % (Auto) 0.1, Absolute Neuts (auto) 10.1 H, Absolute Lymphs (auto) 0.41 L, Nucleated RBC % 0 Physical Exam Const alert and no apparent distress HEENT head/scalp atraumatic and moist oral mucous membranes Resp normal respiratory effort, no retractions, no use of accessory muscles and clear to auscultation bilaterally GI GI Narrative: distended. hypoactive BS. Minimal output in ostomy (the bag is opaque, so I was unable to determine color). Extremity General Extremity: edema bilateral lower extremity Details: moderate Neuro oriented x3 Sensorium / Orientation: awake and alert Assessment & Plan Assessment/Plan (1) Partial small bowel obstruction: PLAN: s/p LAURA on 02/21. NGT replaced on 02/24. 02/25 Ex lap with resection of small bowel. mgmt per GS DW nutrition to initiate PPN. (2) HTN (hypertension): QUALIFIERS: Hypertension type: primary hypertension Qualified Code(s): I10 - Essential (primary) hypertension PLAN: BP persistently high. Currently NPO so home medications have been held. Scheduled enalaprilat initiated 02/25, then scheduled IV metoprolol on the (pt had to be placed on telemetry in order to receive IV metoprolol). On the , creatinine is trending up, it is unclear if enalaprilat is contributing, so I will discontinue. Will clonidine patch and give a dose of furosemide. Additionally, HLIV today. (3) Hypokalemia: PLAN: ongoing replace again today. magnesium WNL (4) Hypernatremia: PLAN: pt has been on LR since the . Changed to 1/2 NS on 02/26. Will HLIV. PLAN: Plan Chronic conditions: * type 2 diabetes-patient's blood sugars were monitored, sliding scale insulin will be given if necessary. Metformin on hold * osteoarthritis of the left knee-status post total knee replacement postop day #7-PT and OT are seeing patient, he will return to TCU when medically stable, he does not need preapproval to go back to TCU. He was on apixaban for VTE prophylaxis from this surgery. * hyperlipidemia-resume statin when able VTE prophylaxis: SQ heparin SHAKIR Vergara. Charges/Coding Visit Charges Inpatient E&M: 66656 Subs Hosp L2
[2023-02-27 07:30] LABS: Anion Gap 10 (5-15); BUN 18 mg/dL (7-18); Chloride 125 mmol/L (98-107); Creatinine, Serum 1.63 mg/dL (0.70-1.30); EST Glomerular Filtration Rate 44 mL/min (>60); Est Glom Filt Rate - Afr Amer 53 mL/min (>60); Estimated Creatinine Clearance 37.32 ml/min; Glucose 139 mg/dL (74-106); Magnesium 2.1 mg/dL (1.6-2.6); Phosphorus 2.4 mg/dL (2.5-4.9); Potassium 3.2 mmol/L (3.5-5.1); Sodium Level 151 mmol/L (136-145)
[2023-02-27] MEDS: hydroCHLOROthiazide 12.5mg 12.5 MG PO (08:19)
[2023-02-27] MEDS: Menthol/Lanolin/Calamine/Znox 113 GM Tube 1 APPLIC TOPICAL ×2 (08:19→23:13)
[2023-02-27] MEDS: 0.45% Normal Saline 1,000 ML 100 ML IV (08:20)
[2023-02-27] MEDS: Pantoprazole Sodium 40 MG in 0.9% Normal Saline (100mL MB+) 100 ML 330 MG IV (08:21)
--- NOTE | 2023-02-27 08:47 | PCM.PN.SRG ---
Subjective Subjective Patient seen and examined during AM rounds. He is found sitting out of bed in the chair. He reports less discomfort this morning. Once again he denies any feelings of passage of gas into his ostomy appliance but is careful to note that he has a relief valve on his appliance. Objective Data Objective Data Vital Signs: Vital Signs Temp Pulse Resp BP Pulse Ox O2 Del Method O2 Flow Rate 97.9 F 94 18 169/70 H 95 Room Air 1 02/27/23 08:10 02/27/23 08:10 02/27/23 08:10 02/27/23 08:10 02/27/23 08:10 02/27/23 08:10 02/21/23 23:56 Oxygen Flow Rate (L/min) 1 Oxygen Delivery Method Room Air Weight: 199 lb 15.348 oz Body Mass Index (BMI) 28.7 Intake & Output: Intake and Output for Last 24 Hours 02/25/23 02/26/23 02/27/23 23:59 23:59 23:59 Intake Total 5503.75 / 5503.75 3225.83 / 3255.83 1132 / 1132 Output Total 2710 / 2710 1250 / 1250 850 / 850 Balance 2793.75 / 2793.75 1975.83 / 2004.83 282 / 282 Lab / Micro Data 02/27/23 06:40 02/27/23 06:40 Labs: Laboratory Results - last 24 hr 02/26/23 05:45: Differential Comment SCANNED, Sodium 149 H 02/26/23 05:45: Sodium Cancelled, Potassium 3.2 L 02/26/23 05:45: Potassium Cancelled, Chloride 122 H 02/26/23 05:45: Chloride Cancelled, Carbon Dioxide 15.0 L 02/26/23 05:45: Carbon Dioxide Cancelled, Anion Gap 12 02/26/23 05:45: Anion Gap Cancelled, BUN 20 H 02/26/23 05:45: BUN Cancelled, Creatinine 1.56 H 02/26/23 05:45: Creatinine Cancelled, Estim Creat Clear Calc 39.00 02/26/23 05:45: Estim Creat Clear Calc Cancelled, Est GFR (MDRD) Af Amer 55 L 02/26/23 05:45: Est GFR (MDRD) Af Amer Cancelled, Est GFR (MDRD) Non-Af 46 L 02/26/23 05:45: Est GFR (MDRD) Non-Af Cancelled, BUN/Creatinine Ratio 12.8 02/26/23 05:45: BUN/Creatinine Ratio Cancelled, Glucose 130 H 02/26/23 05:45: Glucose Cancelled, Calcium 7.9 L 02/26/23 05:45: Calcium Cancelled, Total Bilirubin 0.60 02/26/23 05:45: Total Bilirubin Cancelled, AST 19 02/26/23 05:45: AST Cancelled, ALT 51 02/26/23 05:45: ALT Cancelled, Alkaline Phosphatase 85 02/26/23 05:45: Alkaline Phosphatase Cancelled, Total Protein 5.2 L 02/26/23 05:45: Total Protein Cancelled, Albumin 2.2 L 02/26/23 05:45: Albumin Cancelled, Globulin 3.0 02/26/23 05:45: Globulin Cancelled, Albumin/Globulin Ratio 0.7 L 02/26/23 05:45: Albumin/Globulin Ratio Cancelled 02/26/23 11:41: POC Glucose 143 H 02/26/23 15:52: POC Glucose 154 H 02/26/23 16:10: Urine Color Yellow, Urine Clarity Cloudy, Urine pH 5.0, Ur Specific [place] 1.020, Urine Protein 100 H, Urine Glucose (UA) Normal, Urine Ketones 50 H, Urine Occult Blood 250 H, Urine Nitrite Negative, Urine Bilirubin Negative, Urine Urobilinogen Normal, Ur Leukocyte Esterase 500 H, Urine RBC 50-100 SEEN, Urine WBC >100 SEEN, Ur Squamous Epith Cells 0-5 SEEN, Urine Bacteria 1+, Fine Granular Casts 0-5 SEEN, Urine Mucus 0 SEEN 02/26/23 22:30: POC Glucose 150 H 02/27/23 06:40: WBC 11.8 H, RBC 3.36 L, Hgb 9.2 L, Hct 28.7 L, MCV 85.4, MCH 27.4, MCHC 32.1, RDW Std Deviation 50.8 H, RDW Coeff of [place] 16.5 H, Plt Count 207, MPV 10.1, Immature Gran % (Auto) 1.000 H, Neut % (Auto) 86.0 H, Lymph % (Auto) 3.5 L, [place] % (Auto) 8.9, Eos % (Auto) 0.5, Baso % (Auto) 0.1, Absolute Neuts (auto) 10.1 H, Absolute Lymphs (auto) 0.41 L, Nucleated RBC % 0, Sodium 151 H, Potassium 3.2 L, Chloride 125 H, Carbon Dioxide 16.0 L, Anion Gap 10, BUN 18, Creatinine 1.63 H, Estim Creat Clear Calc 37.32, Est GFR (MDRD) Af Amer 53 L, Est GFR (MDRD) Non-Af 44 L, BUN/Creatinine Ratio 11.0, Glucose 139 H, Calcium 8.0 L, Phosphorus 2.4 L, Magnesium 2.1 Physical Exam Const oriented x3 and no apparent distress Constitutional Narrative: Anasarca present Resp normal respiratory effort GI GI Narrative: Patient mildly distended, operative dressing is taken down and wound appears appropriate with skin sammi still intact. There is slight serous drainage from the wound but no surrounding erythema or purulence noted. Patient's tenderness is appropriate. His ostomy appliance is flat in the left lower quadrant. Nasogastric tube is in place with scant output and is currently disconnected from suction Bladder / Kidney Exam: catheter in place Assessment & Plan Assessment/Plan (1) Partial small bowel obstruction: PLAN: Patient is an 78-year-old male postoperative days 2 and 6 from diagnostic laparoscopy with lysis of adhesions followed by ex lap and small bowel resection. Patient has improved hypertension after transitioning to IV formulations of his regular medications. Appears well controlled for postoperative pain. We continue to await return of bowel function, but his nasogastric tube output remains minimal and he denies any present nausea despite being clamped for medications and a recent walk. His abdominal exam is as expected. Patient continues to exhibit evidence of metabolic acidosis and he was transition from normal saline to lactated Ringer's and then to half-normal saline by the hospitalist service yesterday. He remains with hypernatremia and hyperchloremia so plan is to consult nutrition for initiation of PPN. We will have to closely monitor patient's blood sugars given his diabetes. Lastly, with the presence of anasarca hospitalist service has already placed an order for beginning diuresis. Plan: ? Continue optimization of blood pressure via intravenous formulations per hospitalist service ? Initiate clamp trial of patient's nasogastric tube keeping him out of bed in a chair with aspiration precautions in place. Nursing has been instructed on full details. We will follow-up the results of this testing to see if patient's nasogastric tube can be discontinued later today. ? Continue to hold anticoagulation as patient has had a further fall in his hemoglobin. It remains unknown whether or not this is related to actual blood loss or simple hemodilution with patient's fluid status in flux. Repeat a.m. labs ? Replete potassium?combination of potassium chloride and potassium phosphate ordered?recheck a.m. labs for both electrolytes and patient's bump in creatinine Charges/Coding Visit Charges Inpatient E&M: 65493 Init Hosp L2
[2023-02-27 09:56] LABS: Differential Comment SCANNED
[2023-02-27] MEDS: Potassium Chloride 10mEq/100mL 10 MEQ/100 ML IV.SOLN. 100 MEQ IV BOLUS ×4 (10:45→16:18)
[2023-02-27] MEDS: Potassium Phosphate 15 MM in 0.9% Normal Saline (250mL Bag) 250 ML 125 MM IV (10:51)
[2023-02-27 11:36] LABS: Bedside Glucose 124 mg/dL (74-106)
[2023-02-27] MEDS: 0.9% Saline Lock 10 ML Syringe IV ×3 (12:21→23:13)
[2023-02-27] MEDS: Furosemide 40 MG/4 ML Vial IV (12:21)
--- NOTE | 2023-02-27 12:53 | NURSING ---
This Nurse Clamped NG tube at 08:30 this morning. At 12:35, this RN unclamped NG tube and put back to LIWS. at 1305, this RN will measure how much output pt has had in the 30min that the NG has been since back to suction.
[2023-02-27 13:30] LABS: Bedside Glucose 136 mg/dL (74-106)
[2023-02-27] MEDS: TPN - Clinimix E 4.25%-5% 2,000 ML with Multivitamins 10 ML, Trace Elements 1 ML, Folic... 42 ML IV (16:59)
[2023-02-27] MEDS: cloNIDine HCl 0.2 MG Patch TD (18:28)
[2023-02-27 20:08] LABS: Bedside Glucose 129 mg/dL (74-106)
[2023-02-28] VITALS (13 sets, daily range): BP systolic 131–197; BP diastolic 63–87; PULSE 87–97; RESP 16–20; TEMP 36.4–36.7; O2SAT 93–98; BMI 30.1
[2023-02-28 00:09] LABS: Bedside Glucose 137 mg/dL (74-106)
[2023-02-28] MEDS: Piperacil/Tazobactam 3.375 GM in 0.9% Normal Saline (50mL MB+) 50 ML IV (05:26)
[2023-02-28] MEDS: 0.9% Saline Lock 10 ML Syringe IV ×5 (05:26→18:09)
[2023-02-28] MEDS: Metoprolol Tartrate 5 MG/5 ML Vial IV ×3 (05:26→17:56)
[2023-02-28] MEDS: Ondansetron 4 MG/2 ML Vial IV ×3 (05:26→17:57)
[2023-02-28] MEDS: 0.9% Normal Saline (250mL Bag) 250 ML 15 ML IV (05:44)
[2023-02-28 06:37] LABS: Bedside Glucose 138 mg/dL (74-106)
--- NOTE | 2023-02-28 07:45 | NURSING ---
attempted to draw labs through [facility]. despite multiple flushes, repositioning unable to draw appropriate waste and blood. discussed placing picc line with patient as had discussed with Dr. Michele. pt agreeable
[2023-02-28] MEDS: Menthol/Lanolin/Calamine/Znox 113 GM Tube 1 APPLIC TOPICAL ×2 (08:41→21:07)
[2023-02-28] MEDS: hydrALAZINE 20 MG/ML Vial 10 MG IV ×2 (08:46→14:52)
--- NOTE | 2023-02-28 09:21 | CASEMGMT ---
Social Work SW left a message for Hollie in TCU letting her know that pt is not ready for discharge to TCU today. LIV Barragan
--- NOTE | 2023-02-28 09:49 | PN.SURG_ITS ---
Subjective Subjective Patient had a little bit of liquid in his colostomy bag. He is not complaining of any pain Objective Data Objective Data Vital Signs: Vital Signs Temp Pulse Resp BP Pulse Ox O2 Del Method O2 Flow Rate 98.1 F 89 18 197/87 H 95 Room Air 1 02/28/23 08:43 02/28/23 08:46 02/28/23 08:43 02/28/23 08:43 02/28/23 08:43 02/28/23 08:51 02/21/23 23:56 Oxygen Flow Rate (L/min) 1 Oxygen Delivery Method Room Air Weight: 210 lb 8.663 oz Body Mass Index (BMI) 30.1 Intake & Output: Intake and Output for Last 24 Hours 02/26/23 02/27/23 02/28/23 23:59 23:59 23:59 Intake Total 3225.83 / 3255.83 2502.42 / 2502.42 329.25 / 329.25 Output Total 1250 / 1250 4175 / 4175 1000 / 1000 Balance 1975.83 / 2005.83 -1672.58 / -1672.58 -670.75 / -670.75 Lab / Micro Data 02/27/23 06:40 02/27/23 06:40 Labs: Laboratory Results - last 24 hr 02/27/23 06:25: POC Glucose 124 H 02/27/23 06:40: Differential Comment SCANNED 02/27/23 12:24: POC Glucose 136 H 02/27/23 18:11: POC Glucose 129 H 02/27/23 23:15: POC Glucose 137 H 02/28/23 05:40: POC Glucose 138 H Physical Exam Const oriented x3 and no apparent distress Resp normal respiratory effort GI soft to palpation Palpation: Negative for tender Assessment & Plan Assessment/Plan (1) Partial small bowel obstruction: PLAN: Patient had laparotomy and small bowel resection on Tuesday. He had NG maintained over the weekend and has not been passing much gas into his colostomy bag. I am getting a KUB this morning to check the status of his bowel distenti on. Patient is on PPN. Unable to draw labs this morning through his midline. Jose Michele MD Pager: [facility] [address] [place] [address], [address] [place] [address] Office:
--- NOTE | 2023-02-28 09:51 | NURSING ---
call placed to Dr. Garcia office to see when sammi are to be removed - awaiting call back
--- NOTE | 2023-02-28 10:00 | RAD_ITS ---
EXAM: XR ABDOMEN, 1 VIEW CLINICAL INDICATION: postoperative ileus TECHNIQUE: Frontal supine view of the abdomen/pelvis. COMPARISON: XR Abdomen dated 02/24/2023 FINDINGS: GASTROINTESTINAL TRACT: Persistent distended small bowel loops suggestive of small bowel obstruction. ORGANS: No organomegaly. BONES/JOINTS: No acute abnormality. TUBES, LINES AND DEVICES: Double-J ureteral stent catheters remain in place. Enteric tube extends into the stomach. RAD/Abdomen Single View (Portable) IMPRESSION: Small bowel distention which may represent distal obstruction. Electronically Signed: Amol Whitley MD at 16:16 EDT ,
--- NOTE | 2023-02-28 11:07 | WOUNDNOTE ---
per Dr. Garcia office - pt will be seen on 03/01/[address] Garcia to evaluate pt to see if sammi will need out.
[2023-02-28] MEDS: Pantoprazole Sodium 40 MG in 0.9% Normal Saline (100mL MB+) 100 ML 330 MG IV (11:12)
--- NOTE | 2023-02-28 11:15 | PN_ITS ---
Subjective Subjective Patient seen and examined. He complained of a ripped right big toenail. He denies any abdominal pain, nausea, vomiting, fever or chills. Review of systems is otherwise negative. He is passing gas in his colostomy bag. Review of systems is otherwise negative. He wants podiatry consulted to check out his toe nail. Objective Data Objective Data Vital Signs: Vital Signs Temp Pulse Resp BP Pulse Ox O2 Del Method O2 Flow Rate 98.1 F 89 18 197/87 H 96 Room Air 1 02/28/23 08:43 02/28/23 08:46 02/28/23 08:43 02/28/23 08:43 02/28/23 09:01 02/28/23 08:51 02/21/23 23:56 Oxygen Flow Rate (L/min) 1 Oxygen Delivery Method Room Air Weight: 210 lb 8.663 oz Body Mass Index (BMI) 30.1 Intake & Output: Intake and Output for Last 24 Hours 02/26/23 02/27/23 02/28/23 23:59 23:59 23:59 Intake Total 3225.83 / 3255.83 2502.42 / 2502.42 329.25 / 329.25 Output Total 1250 / 1250 4175 / 4175 1000 / 1000 Balance 1975.83 / 2005.83 -1672.58 / -1672.58 -670.75 / -670.75 Lab / Micro Data 02/27/23 06:40 02/27/23 06:40 Labs: Laboratory Results - last 24 hr 02/27/23 06:25: POC Glucose 124 H 02/27/23 12:24: POC Glucose 136 H 02/27/23 18:11: POC Glucose 129 H 02/27/23 23:15: POC Glucose 137 H 02/28/23 05:40: POC Glucose 138 H Physical Exam Const alert, oriented x3 and no apparent distress HEENT normocephalic, head/scalp atraumatic, moist oral mucous membranes and oropharynx normal Eyes EOMs intact bilaterally Neck no lymphadenopathy, supple and no JVD Lymph Lymphatic: no lymphadenopathy noted and no lymphedema noted Resp normal respiratory effort, normal air movement and clear to auscultation bilaterally Cardio regular rhythm, S1 normal heart sound, S2 normal heart sound and no murmurs GI normal to inspection, nondistended, normoactive bowel sounds GI Narrative: abdomen nontender, non distended, no organomegaly. Colostomy bag has scant liquid stool. Normal bowel sounds Extremity normal capillary refill, no clubbing, cyanosis or edema and no calf tenderness Skin Skin Narrative: has a torn right great toenail. Neuro CN's II-XII intact bilaterally, no focal motor deficits, no sensory deficits noted and deep tendon reflexes 2+ bilaterally Motor Exam: strength 5/5 throughout and general weakness Psych thought process normal and cooperative Assessment & Plan Assessment/Plan (1) Partial small bowel obstruction: PLAN: Plan #Partial small bowel obstruction * s/p exploratory laparotomy with small bowel resection on 02/25/2023 * on PPN * general surgery on board. * for KUB today * on clear liquid diet * #Hypertension * NPO * on clonidine patch. Once he is able to tolerate oral diet, will resume oral meds * on IV metoprolol prn and IV enalaprilat * #Torn right big toenail: patient told he can follow up with podiatry on outpatient basis, but he insists he wants podiatry to see him in the hospital. Will consult podiatry. #Hypernatremia: labs pending today #Hypokalemia: labs pending today. He has been a difficult draw, so PICC line insertion pending. #Type 2 diabetes mellitus * metformin on hold. ISS. Accuchecks ACHS * Osteoarthritis of the left knee * s/p left total knee replacement * PT/OT on board. Fall precautions. * #Hyperlipidemia: on statin. DVT prophylaxis: heparin Charges/Coding Visit Charges Inpatient E&M: 36663 Subs Hosp L2
[2023-02-28 11:37] LABS: Bedside Glucose 124 mg/dL (74-106)
[2023-02-28 13:51] LABS: Absolute Lymphocyte Count 0.58 X10^3/uL (0.83-4.51); Absolute Neutrophil Count 8.6 X10^3/uL (2.0-7.7); Basophil# 0.01 X10^3/uL; Basophil% 0.1 % (0-1); Eosinophil# 0.17 X10^3/uL; Eosinophils% 1.6 % (0-5); Hematocrit 28.6 % (40-54); Lymphocyte # 0.58 X10^3/ul (0.83-4.51); Lymphocyte % 5.6 % (19-41); Mean Corp Hgb Conc 31.5 g/dL (32-36); Mean Corpuscular Hgb 26.6 pg (27.0-32.0); Mean Corpuscular Volume 84.6 fL (80-94); Mean Platelet Vol. 10.6 fl (6.2-12.0); Monocyte# 0.83 X10^3/uL; NRBC Flagged by Analyzer 0 % (0-5); Neutrophil # 8.62 X10^3/uL (2.7-7.7); Neutrophil % 83.3 % (47-70); POSITIVE DIFFERENTIAL YES; Platelet Count 244 K/mm3 (150-450); RBC Distribution Width CV 16.9 % (11.6-14.6); RBC Distribution Width SD 51.4 fl (35.1-43.9); Red Blood Count 3.38 M/mm3 (4.6-6.2); White Blood Count 10.4 K/mm3 (4.4-11.0)
[2023-02-28 14:00] LABS: Differential Indicated SCAN CRITERIA MET
[2023-02-28 14:16] LABS: ALB/GLOB Ratio 0.5 RATIO (0.9-2.4); AST(SGOT) 19 U/L (15-37); Alanine Aminotransfer ALT/SGPT 38 U/L (16-61); Alkaline Phosphatase 92 U/L (45-117); Anion Gap 7 (5-15); BUN 20 mg/dL (7-18); BUN/Creat Ratio 12.9 RATIO (10-20); Bilirubin, Direct 0.24 mg/dL (0.00-0.30); Calcium,Total 8.7 mg/dL (8.5-10.1); Chloride 122 mmol/L (98-107); Creatinine, Serum 1.55 mg/dL (0.70-1.30); EST Glomerular Filtration Rate 46 mL/min (>60); Est Glom Filt Rate - Afr Amer 56 mL/min (>60); Estimated Creatinine Clearance 39.25 ml/min; Globulin 3.8 g/dL (2.2-4.2); Glucose 151 mg/dL (74-106); Magnesium 1.8 mg/dL (1.6-2.6); Phosphorus 2.4 mg/dL (2.5-4.9); Potassium 3.1 mmol/L (3.5-5.1); Protein, Total 5.8 g/dL (6.4-8.2); Sodium Level 153 mmol/L (136-145); Triglycerides 325 mg/dL
--- NOTE | 2023-02-28 14:22 | PCM.CONS.GEN ---
Assessment & Plan Assessment/Plan (1) Pain in right toe(s): PLAN: Exam performed Patient had right ingrowing hangnail that was splintered longitudinally along the medial nail plate with ingrowing to the medial nail border. All toenails were mechanically debrided in length and thickness without incident incident using sterile nail nippers. A sterile atraumatic slant back procedure was performed to remove the splintered hangnail and ingrowing portion of that nail. Pain resolved postdebridement Recommend daily application of bacitracin and Band-Aid per nursing Patient follow-up outpatient for routine nail care. (2) Ingrowing nail: HPI Consult Data Date of Consult: 02/28/23 HPI Narrative HPI Narrative: VILMA SAM, is a 78 M who presents postop with a bowel obstruction after left total knee replacement. Patient caught his right hallux on some sheets and tore a piece of the nail loosened causing pain and discomfort. Patient denies constitutional symptoms and has no other complaints at this time. FORMERLY [facility] Medical History Bladder infection Cancer Chronic pain COVID Diabetes Gout High cholesterol History of anal cancer History of Clostridium difficile infection HTN (hypertension) Indwelling urethral catheter present Non-smoker Torn meniscus Home Medications losartan 100 mg tablet 100 mg PO DAILY bp 06/01/13 [History Last Taken 02/18/23] metoprolol succinate 100 mg tablet,extended release 24 hr 100 mg PO DAILY bp 06/01/13 [History Last Taken 02/18/23] metformin 500 mg tablet,extended release 24 hr 500 mg PO DAILY DIABETES 04/25/20 [History Last Taken 02/18/23] rosuvastatin 5 mg tablet 5 mg PO DAILY CHOLESTEROL 12/16/21 [History Last Taken 02/17/23] amlodipine 10 mg tablet 10 mg PO DAILY BP 01/07/23 [History Last Taken 02/18/23] acetaminophen 500 mg tablet 1,000 mg (2 x 500 mg) PO Q6H PRN pain #100 tabs 02/16/23 [Rx Last Taken Unknown] apixaban 2.5 mg tablet (Eliquis) 2.5 mg PO BID blood thinner #28 tabs 02/16/23 [Rx Last Taken 02/18/23] oxycodone 5 mg tablet 5 - 10 mg (1 - 2 x 5 mg) PO Q4H PRN pain 7 days #60 tabs 02/16/23 [Rx Last Taken Unknown] acetaminophen 500 mg tablet 1,000 mg (2 x 500 mg) PO Q8 pain #0 tabs 02/18/23 [Rx Last Taken Unknown] apixaban 5 mg tablet (Eliquis) 2.5 mg (1/2 x 5 mg) PO BID blood thinner #0 tabs 02/18/23 [Rx Last Taken 02/18/23] oxycodone 5 mg tablet 5 - 10 mg (1 - 2 x 5 mg) PO Q4H PRN PRN Pain Score 4-10 2 days #10 tabs 02/18/23 [Rx Last Taken 02/18/23] sennosides 8.6 mg-docusate sodium 50 mg tablet (Stool Softener-Stimulant Laxative) 2 tab PO BID bowels #0 tabs 02/18/23 [Rx Last Taken Unknown] Allergy/AdvReac Type Severity Reaction Status Date / Time hydromorphone [From Dilaudid] AdvReac Other Verified 02/15/23 10:18 meperidine [From Demerol] AdvReac Nausea/Vom/ Verified 02/15/23 10:18 Diarrhea Surgical History History of appendectomy History of back surgery History of cholecystectomy History of removal of Port-a-Cath History of total left knee replacement Hx of cataract surgery Hx of colonoscopy Hx of cystoscopy Hx of cystoscopy Hx of cystoscopy Hx of cystoscopy (~01/23/20) Hx of cystoscopy (~05/28/20) Hx of cystoscopy Hx of cystoscopy Hx of cystoscopy Hx of dilation of urethra Hx of left knee surgery Social History household members: spouse Smoking Status: Never smoker alcohol intake: never substance use type: does not use ROS Constitutional Constitutional: Denies excessive sweating, fatigue or fever(s) Eyes Eyes: Denies burning, erythema or loss of peripheral vision ENT HEENT: Reports dizziness; Denies dry mouth or loss taste/smell Cardiovascular Cardiovascular: Reports leg edema; Denies dyspnea or dyspnea at rest Respiratory/Chest Respiratory/Chest: Denies mouth breathing, productive cough or red skin Gastrointestinal Gastrointestinal: Reports bloating, constipation and cramping Physical Exam Narrative Dorsalis pedis and posterior tibial pulses palpable 2 out of 4. Skin well-hydrated intact to bilateral lower extremity. Digital hair growth noted. No sign skin atrophy. Light touch protective sensation intact bilateral feet. Right hallux great toenail demonstrates a hangnail with ingrowing nature to the medial nail fold. Some sanguinous drainage noted. No signs of infection. Postdebridement was a stable small partial-thickness wound to the medial hallux nail bed. Again no signs of infection noted. Pain resolved postdebridement. Status post left knee replacement. No signs DVT. No gross musculoskeletal deformity. Bilateral muscular strength 5 out of 5 to bilateral lower extremity compartments Const alert and oriented x3 Lab / Micro Data 02/28/23 13:37 02/28/23 13:37 Labs: Laboratory Results - last 24 hr 02/27/23 18:11: POC Glucose 129 H 02/27/23 23:15: POC Glucose 137 H 02/28/23 05:40: POC Glucose 138 H 02/28/23 11:19: POC Glucose 124 H 02/28/23 13:37: WBC 10.4, RBC 3.38 L, Hgb 9.0 L, Hct 28.6 L, MCV 84.6, MCH 26.6 L, MCHC 31.5 L, RDW Std Deviation 51.4 H, RDW Coeff of [place] 16.9 H, Plt Count 244, MPV 10.6, Immature Gran % (Auto) 1.400 H, Neut % (Auto) 83.3 H, Lymph % (Auto) 5.6 L, [place] % (Auto) 8.0, Eos % (Auto) 1.6, Baso % (Auto) 0.1, Absolute Neuts (auto) 8.6 H, Absolute Lymphs (auto) 0.58 L, Nucleated RBC % 0, Differential Comment COMMENT, Sodium 153 H, Potassium 3.1 L, Chloride 122 H, Carbon Dioxide 24.0, Anion Gap 7, BUN 20 H, Creatinine 1.55 H, Estim Creat Clear Calc 39.25, Est GFR (MDRD) Af Amer 56 L, Est GFR (MDRD) Non-Af 46 L, BUN/Creatinine Ratio 12.9, Glucose 151 H, Calcium 8.7, Phosphorus 2.4 L, Magnesium 1.8, Total Bilirubin 0.60, Direct Bilirubin 0.24, Indirect Bilirubin Cancelled, AST 19, ALT 38, Alkaline Phosphatase 92, Total Protein 5.8 L, Albumin 2.0 L, Globulin 3.8, Albumin/Globulin Ratio 0.5 L, Triglycerides 325 H
[2023-02-28 14:25] LABS: International Normalized Ratio 1.2
[2023-02-28] MEDS: Potassium Chloride 10mEq/100mL 10 MEQ/100 ML IV.SOLN. 100 MEQ IV BOLUS ×4 (16:07→19:24)
[2023-02-28] MEDS: TPN - Clinimix E 4.25%-5% 2,000 ML with Multivitamins 10 ML, Trace Elements 1 ML, Folic... 42 ML IV (16:13)
[2023-02-28 17:29] LABS: Bedside Glucose 150 mg/dL (74-106)
[2023-02-28 22:50] LABS: Bedside Glucose 142 mg/dL (74-106)
[2023-03-01] VITALS (18 sets, daily range): BP systolic 157–210; BP diastolic 68–83; PULSE 75–98; RESP 16–18; TEMP 36.4–36.9; O2SAT 94–99
[2023-03-01] MEDS: 0.9% Saline Lock 10 ML Syringe IV ×5 (00:07→17:47)
[2023-03-01] MEDS: Metoprolol Tartrate 5 MG/5 ML Vial IV ×5 (00:07→23:17)
[2023-03-01] MEDS: Ondansetron 4 MG/2 ML Vial IV ×5 (00:11→23:20)
[2023-03-01 05:49] LABS: Absolute Lymphocyte Count 0.54 X10^3/uL (0.83-4.51); Basophil# 0.02 X10^3/uL; Basophil% 0.3 % (0-1); Eosinophil# 0.26 X10^3/uL; Eosinophils% 3.5 % (0-5); Hemoglobin 8.1 g/dL (13.0-16.5); Lymphocyte # 0.54 X10^3/ul (0.83-4.51); Lymphocyte % 7.3 % (19-41); Mean Corp Hgb Conc 31.2 g/dL (32-36); Mean Corpuscular Hgb 26.8 pg (27.0-32.0); Mean Corpuscular Volume 86.1 fL (80-94); Mean Platelet Vol. 10.8 fl (6.2-12.0); Monocyte# 0.54 X10^3/uL; Monocyte% 7.3 % (0-10); NRBC Flagged by Analyzer 0 % (0-5); Neutrophil # 5.98 X10^3/uL (2.7-7.7); Neutrophil % 80.5 % (47-70); POSITIVE DIFFERENTIAL YES; Platelet Count 211 K/mm3 (150-450); RBC Distribution Width CV 17.2 % (11.6-14.6); RBC Distribution Width SD 52.8 fl (35.1-43.9); Red Blood Count 3.02 M/mm3 (4.6-6.2); White Blood Count 7.4 K/mm3 (4.4-11.0)
[2023-03-01 05:51] LABS: Differential Indicated SCAN CRITERIA MET
[2023-03-01 06:07] LABS: Anisocytosis 1+
[2023-03-01 06:22] LABS: ALB/GLOB Ratio 0.5 RATIO (0.9-2.4); AST(SGOT) 26 U/L (15-37); Alanine Aminotransfer ALT/SGPT 42 U/L (16-61); Albumin, Serum 1.8 g/dL (3.2-5.0); Alkaline Phosphatase 94 U/L (45-117); Anion Gap 7 (5-15); BUN 20 mg/dL (7-18); BUN/Creat Ratio 13.4 RATIO (10-20); Calcium,Total 8.4 mg/dL (8.5-10.1); Chloride 125 mmol/L (98-107); Creatinine, Serum 1.49 mg/dL (0.70-1.30); EST Glomerular Filtration Rate 48 mL/min (>60); Est Glom Filt Rate - Afr Amer 58 mL/min (>60); Estimated Creatinine Clearance 40.83 ml/min; Globulin 3.5 g/dL (2.2-4.2); Glucose 160 mg/dL (74-106); Magnesium 1.9 mg/dL (1.6-2.6); Phosphorus 2.7 mg/dL (2.5-4.9); Potassium 3.1 mmol/L (3.5-5.1); Protein, Total 5.3 g/dL (6.4-8.2); Sodium Level 154 mmol/L (136-145)
[2023-03-01 06:58] LABS: Bedside Glucose 144 mg/dL (74-106)
--- NOTE | 2023-03-01 07:21 | PN.ORTHO_ITS ---
Subjective Subjective Patient seen and examined. His knee is doing okay does admit to stiffness has not been doing much in terms of range of motion with all that has been going on. Objective Data Objective Data Vital Signs: Vital Signs Temp Pulse Resp BP Pulse Ox O2 Del Method O2 Flow Rate 98.5 F 83 18 186/74 H 96 Room Air 1 03/01/23 04:05 03/01/23 06:57 03/01/23 04:05 03/01/23 06:57 03/01/23 06:09 03/01/23 06:09 02/21/23 23:56 Oxygen Flow Rate (L/min) 1 Oxygen Delivery Method Room Air Weight: 210 lb 8.663 oz Body Mass Index (BMI) 30.1 Intake & Output: Intake and Output for Last 24 Hours 02/27/23 02/28/23 03/01/23 23:59 23:59 23:59 Intake Total 2502.42 / 2502.42 2262.13 / 2492.13 460 / 460 Output Total 4175 / 4175 2080 / 2530 1370 / 1370 Balance -1672.58 / -1672.58 182.13 / -37.87 -910 / -910 Lab / Micro Data 03/01/23 05:40 03/01/23 05:40 Labs: Laboratory Results - last 24 hr 02/28/23 11:19: POC Glucose 124 H 02/28/23 13:37: WBC 10.4, RBC 3.38 L, Hgb 9.0 L, Hct 28.6 L, MCV 84.6, MCH 26.6 L, MCHC 31.5 L, RDW Std Deviation 51.4 H, RDW Coeff of [place] 16.9 H, Plt Count 244, MPV 10.6, Immature Gran % (Auto) 1.400 H, Neut % (Auto) 83.3 H, Lymph % (Auto) 5.6 L, [place] % (Auto) 8.0, Eos % (Auto) 1.6, Baso % (Auto) 0.1, Absolute Neuts (auto) 8.6 H, Absolute Lymphs (auto) 0.58 L, Nucleated RBC % 0, Dif ferential Comment COMMENT, PT 15.0 H, INR 1.2, Sodium 153 H, Potassium 3.1 L, Chloride 122 H, Carbon Dioxide 24.0, Anion Gap 7, BUN 20 H, Creatinine 1.55 H, Estim Creat Clear Calc 39.25, Est GFR (MDRD) Af Amer 56 L, Est GFR (MDRD) Non-Af 46 L, BUN/Creatinine Ratio 12.9, Glucose 151 H, Calcium 8.7, Phosphorus 2.4 L, Magnesium 1.8, Total Bilirubin 0.60, Direct Bilirubin 0.24, Indirect Bilirubin Cancelled, AST 19, ALT 38, Alkaline Phosphatase 92, Total Protein 5.8 L, Albumin 2.0 L, Globulin 3.8, Albumin/Globulin Ratio 0.5 L, Triglycerides 325 H 02/28/23 16:05: POC Glucose 150 H 02/28/23 21:09: POC Glucose 142 H 03/01/23 05:40: WBC 7.4, RBC 3.02 L, Hgb 8.1 L, Hct 26.0 L, MCV 86.1, MCH 26.8 L , MCHC 31.2 L, RDW Std Deviation 52.8 H, RDW Coeff of [place] 17.2 H, Plt Count 211, MPV 10.8, Immature Gran % (Auto) 1.100 H, Neut % (Auto) 80.5 H, Lymph % (Auto) 7.3 L, [place] % (Auto) 7.3, Eos % (Auto) 3.5, Baso % (Auto) 0.3, Absolute Neuts (auto) 6.0, Absolute Lymphs (auto) 0.54 L, Nucleated RBC % 0, Anisocytosis 1+, Sodium 154 H, Potassium 3.1 L, Chloride 125 H, Carbon Dioxide 22.0, Anion Gap 7, BUN 20 H, Creatinine 1.49 H, Estim Creat Clear Calc 40.83, Est GFR (MDRD) Af Amer 58 L, Est GFR (MDRD) Non-Af 48 L, BUN/Creatinine Ratio 13.4, Glucose 160 H, Calcium 8.4 L, Phosphorus 2.7, Magnesium 1.9, Total Bilirubin 0.50, AST 26, ALT 42, Alkaline Phosphatase 94, Total Protein 5.3 L, Albumin 1.8 L, Globulin 3.5, Albumin/Globulin Ratio 0.5 L 03/01/23 06:21: POC Glucose 144 H Radiography Diagnostic Testing: Radiology Impression KUB X-Ray 02/28/23 10:00 IMPRESSION: Small bowel distention which may represent distal obstruction. Electronically Signed: Amol Whitley MD at 16:16 EDT , Physical Exam Const alert, oriented x3 and no apparent distress General Appearance: cooperative Extremity Extremity Narrative: Left knee incision well approximated healing well sammi are ready for removal no signs of infection or blood clot neurovascular intact left lower extremity Assessment & Plan Assessment/Plan (1) S/P total knee arthroplasty: QUALIFIERS: Laterality: left Qualified Code(s): Z96.652 - Presence of left artificial knee joint PLAN: Plan Spoke with nursing clean sammi with alcohol and removed today. Encourage knee range of motion ensure patient is receiving physical therapy specifically for the knee. Follow-up in the office in 4 weeks or sooner if any questions or concerns.
[2023-03-01] MEDS: Dextrose 5%-Water (1000mL Bag) 1,000 ML 75 ML IV ×2 (08:08→20:54)
--- NOTE | 2023-03-01 08:11 | PCM.PN.SRG ---
Subjective Subjective The patient had a liquid bowel movement overnight. He does not report any nausea or abdominal pain. Objective Data Objective Data Vital Signs: Vital Signs Temp Pulse Resp BP Pulse Ox O2 Del Method O2 Flow Rate 98.1 F 86 17 210/81 H 99 Room Air 1 03/01/23 07:50 03/01/23 07:50 03/01/23 07:50 03/01/23 07:50 03/01/23 07:50 03/01/23 07:50 02/21/23 23:56 Oxygen Flow Rate (L/min) 1 Oxygen Delivery Method Room Air Weight: 210 lb 8.663 oz Body Mass Index (BMI) 30.1 Intake & Output: Intake and Output for Last 24 Hours 02/27/23 02/28/23 03/01/23 23:59 23:59 23:59 Intake Total 2502.42 / 2502.42 2262.13 / 2492.13 460 / 460 Output Total 4175 / 4175 2080 / 2530 1370 / 1370 Balance -1672.58 / -1672.58 182.13 / -37.87 -910 / -910 Lab / Micro Data 03/01/23 05:40 03/01/23 05:40 Labs: Laboratory Results - last 24 hr 02/28/23 11:19: POC Glucose 124 H 02/28/23 13:37: WBC 10.4, RBC 3.38 L, Hgb 9.0 L, Hct 28.6 L, MCV 84.6, MCH 26.6 L, MCHC 31.5 L, RDW Std Deviation 51.4 H, RDW Coeff of [place] 16.9 H, Plt Count 244, MPV 10.6, Immature Gran % (Auto) 1.400 H, Neut % (Auto) 83.3 H, Lymph % (Auto) 5.6 L, [place] % (Auto) 8.0, Eos % (Auto) 1.6, Baso % (Auto) 0.1, Absolute Neuts (auto) 8.6 H, Absolute Lymphs (auto) 0.58 L, Nucleated RBC % 0, Differential Comment COMMENT, PT 15.0 H, INR 1.2, Sodium 153 H, Potassium 3.1 L, Chloride 122 H, Carbon Dioxide 24.0, Anion Gap 7, BUN 20 H, Creatinine 1.55 H, Estim Creat Clear Calc 39.25, Est GFR (MDRD) Af Amer 56 L, Est GFR (MDRD) Non-Af 46 L, BUN/Creatinine Ratio 12.9, Glucose 151 H, Calcium 8.7, Phosphorus 2.4 L, Magnesium 1.8, Total Bilirubin 0.60, Direct Bilirubin 0.24, Indirect Bilirubin Cancelled, AST 19, ALT 38, Alkaline Phosphatase 92, Total Protein 5.8 L, Albumin 2.0 L, Globulin 3.8, Albumin/Globulin Ratio 0.5 L, Triglycerides 325 H 02/28/23 16:05: POC Glucose 150 H 02/28/23 21:09: POC Glucose 142 H 03/01/23 05:40: WBC 7.4, RBC 3.02 L, Hgb 8.1 L, Hct 26.0 L, MCV 86.1, MCH 26.8 L, MCHC 31.2 L, RDW Std Deviation 52.8 H, RDW Coeff of [place] 17.2 H, Plt Count 211, MPV 10.8, Immature Gran % (Auto) 1.100 H, Neut % (Auto) 80.5 H, Lymph % (Auto) 7.3 L, [place] % (Auto) 7.3, Eos % (Auto) 3.5, Baso % (Auto) 0.3, Absolute Neuts (auto) 6.0, Absolute Lymphs (auto) 0.54 L, Nucleated RBC % 0, Anisocytosis 1+, Sodium 154 H, Potassium 3.1 L, Chloride 125 H, Carbon Dioxide 22.0, Anion Gap 7, BUN 20 H, Creatinine 1.49 H, Estim Creat Clear Calc 40.83, Est GFR (MDRD) Af Amer 58 L, Est GFR (MDRD) Non-Af 48 L, BUN/Creatinine Ratio 13.4, Glucose 160 H, Calcium 8.4 L, Phosphorus 2.7, Magnesium 1.9, Total Bilirubin 0.50, AST 26, ALT 42, Alkaline Phosphatase 94, Total Protein 5.3 L, Albumin 1.8 L, Globulin 3.5, Albumin/Globulin Ratio 0.5 L 03/01/23 06:21: POC Glucose 144 H Radiography Diagnostic Testing: Radiology Impression KUB X-Ray 02/28/23 10:00 IMPRESSION: Small bowel distention which may represent distal obstruction. Electronically Signed: Amol Whitley MD at 16:16 EDT , Physical Exam Const oriented x3 and no apparent distress Resp normal respiratory effort GI normal to inspection, nondistended, normoactive bowel sounds Assessment & Plan Assessment/Plan (1) Partial small bowel obstruction: PLAN: The patient is having bowel function so I will remove his NG tube and start clear liquids. He may resume his oral antihypertensive. I would still continue to hold anticoagulation as his hemoglobin dropped by a gram. I will be rechecked in the morning. Continue clears today to see how he tolerates and possibly advance diet tomorrow. Jose Michele MD Pager: [facility] [address] [place] [address], [address] [place] [address] Office:
[2023-03-01] MEDS: Metoprolol(XL)Succ 100 MG Tablet PO (09:20)
[2023-03-01] MEDS: hydroCHLOROthiazide 25 MG Tablet PO (09:20)
[2023-03-01] MEDS: Menthol/Lanolin/Calamine/Znox 113 GM Tube 1 APPLIC TOPICAL ×2 (09:21→20:55)
[2023-03-01] MEDS: Pantoprazole Sodium 40 MG in 0.9% Normal Saline (100mL MB+) 100 ML 330 MG IV (09:25)
[2023-03-01] MEDS: Smz/Tmp Ds Tablet 1 TABLET PO ×2 (09:42→16:20)
[2023-03-01] MEDS: Losartan Potassium 100 MG Tablet PO (09:42)
[2023-03-01] MEDS: Insulin Lispro 100 UNIT/ML INSULN.PEN SC ×3 (11:07→20:55)
--- NOTE | 2023-03-01 11:13 | CASEMGMT ---
Social Work Social work following patient. Patient has been accepted to TCU, however not medically ready for discharge at this time. Sw updated Sari Lara (TCU study abroad coordinator for TCU) that patient not yet ready for discharge. Patient on clear diet and will need to meet with dispatcher service. Betito Calvo, STAMP CLASSIFIER, SCOW CAPTAIN
--- NOTE | 2023-03-01 11:13 | PCM.PROGNOTE ---
Subjective Subjective Patient seen and examined. He had no complaints today. He has been started on a clear liquid diet. He has remained hemodynamically stable. Review of systems is otherwise negative. Objective Data Objective Data Vital Signs: Vital Signs Temp Pulse Resp BP Pulse Ox O2 Del Method O2 Flow Rate 98.1 F 86 17 210/81 H 99 Room Air 1 03/01/23 07:50 03/01/23 09:20 03/01/23 07:50 03/01/23 07:50 03/01/23 07:50 03/01/23 07:57 02/21/23 23:56 Oxygen Flow Rate (L/min) 1 Oxygen Delivery Method Room Air Weight: 210 lb 8.663 oz Body Mass Index (BMI) 30.1 Intake & Output: Intake and Output for Last 24 Hours 02/27/23 02/28/23 03/01/23 23:59 23:59 23:59 Intake Total 2502.42 / 2502.42 2262.13 / 2492.13 810 / 810 Output Total 4175 / 4175 2080 / 2530 1370 / 1370 Balance -1672.58 / -1672.58 182.13 / -37.87 -560 / -560 Lab / Micro Data 03/01/23 05:40 03/01/23 05:40 Labs: Laboratory Results - last 24 hr 02/28/23 11:19: POC Glucose 124 H 02/28/23 13:37: WBC 10.4, RBC 3.38 L, Hgb 9.0 L, Hct 28.6 L, MCV 84.6, MCH 26.6 L, MCHC 31.5 L, RDW Std Deviation 51.4 H, RDW Coeff of [place] 16.9 H, Plt Count 244, MPV 10.6, Immature Gran % (Auto) 1.400 H, Neut % (Auto) 83.3 H, Lymph % (Auto) 5.6 L, [place] % (Auto) 8.0, Eos % (Auto) 1.6, Baso % (Auto) 0.1, Absolute Neuts (auto) 8.6 H, Absolute Lymphs (auto) 0.58 L, Nucleated RBC % 0, Differential Comment COMMENT, PT 15.0 H, INR 1.2, Sodium 153 H, Potassium 3.1 L, Chloride 122 H, Carbon Dioxide 24.0, Anion Gap 7, BUN 20 H, Creatinine 1.55 H, Estim Creat Clear Calc 39.25, Est GFR (MDRD) Af Amer 56 L, Est GFR (MDRD) Non-Af 46 L, BUN/Creatinine Ratio 12.9, Glucose 151 H, Calcium 8.7, Phosphorus 2.4 L, Magnesium 1.8, Total Bilirubin 0.60, Direct Bilirubin 0.24, Indirect Bilirubin Cancelled, AST 19, ALT 38, Alkaline Phosphatase 92, Total Protein 5.8 L, Albumin 2.0 L, Globulin 3.8, Albumin/Globulin Ratio 0.5 L, Triglycerides 325 H 02/28/23 16:05: POC Glucose 150 H 02/28/23 21:09: POC Glucose 142 H 03/01/23 05:40: WBC 7.4, RBC 3.02 L, Hgb 8.1 L, Hct 26.0 L, MCV 86.1, MCH 26.8 L, MCHC 31.2 L, RDW Std Deviation 52.8 H, RDW Coeff of [place] 17.2 H, Plt Count 211, MPV 10.8, Immature Gran % (Auto) 1.100 H, Neut % (Auto) 80.5 H, Lymph % (Auto) 7.3 L, [place] % (Auto) 7.3, Eos % (Auto) 3.5, Baso % (Auto) 0.3, Absolute Neuts (auto) 6.0, Absolute Lymphs (auto) 0.54 L, Nucleated RBC % 0, Anisocytosis 1+, Sodium 154 H, Potassium 3.1 L, Chloride 125 H, Carbon Dioxide 22.0, Anion Gap 7, BUN 20 H, Creatinine 1.49 H, Estim Creat Clear Calc 40.83, Est GFR (MDRD) Af Amer 58 L, Est GFR (MDRD) Non-Af 48 L, BUN/Creatinine Ratio 13.4, Glucose 160 H, Calcium 8.4 L, Phosphorus 2.7, Magnesium 1.9, Total Bilirubin 0.50, AST 26, ALT 42, Alkaline Phosphatase 94, Total Protein 5.3 L, Albumin 1.8 L, Globulin 3.5, Albumin/Globulin Ratio 0.5 L 03/01/23 06:21: POC Glucose 144 H Radiography Diagnostic Testing: Radiology Impression KUB X-Ray 10/16/23 10:00 IMPRESSION: Small bowel distention which may represent distal obstruction. Electronically Signed: Amol Whitley MD at 16:16 EDT , Physical Exam Const alert, oriented x3, no apparent distress and average body habitus General Appearance: cooperative, well kempt and well developed Orientation / Consciousness: awake HEENT normocephalic, head/scalp atraumatic, hearing grossly normal bilaterally, moist oral mucous membranes and oropharynx normal Eyes PERRL, EOMs intact bilaterally and conjunctivae normal Neck no lymphadenopathy, supple, no JVD, thyroid normal and no carotid bruits General: trachea midline Lymph Lymphatic: no lymphadenopathy noted and no lymphedema noted Resp normal respiratory effort, normal air movement, no retractions, no use of accessory muscles and clear to auscultation bilaterally Auscultation: Negative for rales, rhonchi or wheezes Cardio regular rate, regular rhythm, S1 normal heart sound, S2 normal heart sound, no murmurs, no rub and no gallops GI normal to inspection, nondistended, normoactive bowel sounds and soft to palpation GI Narrative: abdomen nontender, non distended, no organomegaly. Colostomy bag has scant liquid stool. Normal bowel sounds. Intact sutures over abdomen at laparotomy site Auscultation: hypoactive bowel sounds Palpation: tender other (Diffuse abdominal discomfort to palpation) Extremity normal to inspection, normal capillary refill, no clubbing, cyanosis or edema and no calf tenderness Extremity Narrative: There is a surgical incision over the patient's left knee, this area is clean and dry and there is no discharge from the area. Sutures removed from patient's left knee General Extremity: edema bilateral lower extremity Details: moderate Skin no rashes or lesions noted Skin Narrative: right great toenail wrapped in bandage General Skin Exam: no breakdown Neuro oriented x3, CN's II-XII intact bilaterally, moves all extremities, no focal motor deficits, no sensory deficits noted and deep tendon reflexes 2+ bilaterally Sensorium / Orientation: awake and alert Speech: speech normal Motor Exam: strength 5/5 throughout and general weakness Psych thought process normal, cooperative and affect normal Appearance: appropriate Assessment & Plan Assessment/Plan (1) Partial small bowel obstruction: PLAN: Plan #Partial small bowel obstruction s/p exploratory laparotomy with small bowel resection on 02/25/2023 on PPN general surgery on board. on clear liquid diet #Hypertension oral meds resumed as he is on a clear liquid diet. on PO hydralazine, losartan and metoprolol on clonidine patch on IV metoprolol prn and IV enalaprilat #Torn right big toenail: patient told he can follow up with podiatry on outpatient basis, but he insists he wants podiatry to see him in the hospital. podiatry saw patient and had bedside debridement of splintered hangnail and ingrowing part of the toenail. daily application of bacitracin. 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 baseline Cr is ~ 1.4. Will monitor #Hypernatremia: sodium today is 154. Will start on D5W infusion. Will have to review PPN formula to bring down a low sodium #Hypokalemia: potassium today is 3.1. Will replace and trend. #Type 2 diabetes mellitus metformin on hold. ISS. Accuchecks ACHS Osteoarthritis of the left knee s/p left total knee replacement PT/OT on board. Fall precautions. #Hyperlipidemia: on statin. DVT prophylaxis: heparin Charges/Coding Visit Charges Inpatient E&M: [id number] [facility] L3
[2023-03-01] MEDS: TPN - Clinimix E 4.25%-5% 2,000 ML with Multivitamins 10 ML, Trace Elements 1 ML, Folic... 84 ML IV (16:06)
[2023-03-01 16:35] LABS: Bedside Glucose 176 mg/dL (74-106)
[2023-03-01 16:42] LABS: Bedside Glucose 162 mg/dL (74-106)
[2023-03-01 21:52] LABS: Bedside Glucose 173 mg/dL (74-106)
[2023-03-02] VITALS (11 sets, daily range): BP systolic 125–158; BP diastolic 50–66; PULSE 67–81; RESP 16–18; TEMP 36.5–36.7; O2SAT 93–95; BMI 30.1
[2023-03-02] MEDS: Metoprolol Tartrate 5 MG/5 ML Vial IV ×4 (04:57→23:03)
[2023-03-02] MEDS: Ondansetron 4 MG/2 ML Vial IV ×4 (04:57→23:04)
[2023-03-02] MEDS: Insulin Lispro 100 UNIT/ML INSULN.PEN SC ×3 (04:58→16:15)
[2023-03-02 05:26] LABS: Bedside Glucose 176 mg/dL (74-106)
[2023-03-02] MEDS: 0.9% Saline Lock 10 ML Syringe IV ×3 (06:13→17:38)
[2023-03-02 06:19] LABS: Absolute Neutrophil Count 6.1 X10^3/uL (2.0-7.7); Basophil# 0.02 X10^3/uL; Basophil% 0.3 % (0-1); Differential Indicated SCAN CRITERIA MET; Eosinophil# 0.31 X10^3/uL; Eosinophils% 4.2 % (0-5); Hematocrit 23.3 % (40-54); Hemoglobin 7.4 g/dL (13.0-16.5); Lymphocyte % 5.4 % (19-41); Mean Corp Hgb Conc 31.8 g/dL (32-36); Mean Corpuscular Hgb 27.2 pg (27.0-32.0); Mean Corpuscular Volume 85.7 fL (80-94); Mean Platelet Vol. 10.8 fl (6.2-12.0); Monocyte# 0.58 X10^3/uL; Monocyte% 7.8 % (0-10); NRBC Flagged by Analyzer 0 % (0-5); Neutrophil # 6.05 X10^3/uL (2.7-7.7); Neutrophil % 81.1 % (47-70); POSITIVE DIFFERENTIAL YES; Platelet Count 188 K/mm3 (150-450); RBC Distribution Width CV 16.7 % (11.6-14.6); RBC Distribution Width SD 52.5 fl (35.1-43.9); Red Blood Count 2.72 M/mm3 (4.6-6.2); White Blood Count 7.5 K/mm3 (4.4-11.0)
[2023-03-02 06:32] LABS: Anisocytosis 1+
[2023-03-02 06:55] LABS: ALB/GLOB Ratio 0.5 RATIO (0.9-2.4); AST(SGOT) 23 U/L (15-37); Alanine Aminotransfer ALT/SGPT 47 U/L (16-61); Albumin, Serum 1.7 g/dL (3.2-5.0); Alkaline Phosphatase 93 U/L (45-117); Anion Gap 6 (5-15); BUN 21 mg/dL (7-18); Calcium,Total 7.9 mg/dL (8.5-10.1); Chloride 114 mmol/L (98-107); EST Glomerular Filtration Rate 48 mL/min (>60); Est Glom Filt Rate - Afr Amer 58 mL/min (>60); Estimated Creatinine Clearance 40.56 ml/min; Globulin 3.4 g/dL (2.2-4.2); Glucose 189 mg/dL (74-106); Magnesium 1.8 mg/dL (1.6-2.6); Phosphorus 3.2 mg/dL (2.5-4.9); Potassium 2.9 mmol/L (3.5-5.1); Protein, Total 5.1 g/dL (6.4-8.2); Sodium Level 144 mmol/L (136-145)
--- NOTE | 2023-03-02 07:14 | PCM.PN.SRG ---
Subjective Subjective Patient reports he is passing flatus from his colostomy. He tolerated clear liquids with no nausea or vomiting yesterday. He only has incisional pain. He reports no pain in his deep abdomen or pelvis. Objective Data Objective Data Vital Signs: Vital Signs Temp Pulse Resp BP Pulse Ox O2 Del Method O2 Flow Rate 97.9 F 77 18 148/66 H 95 Room Air 1 03/02/23 03:40 03/02/23 04:57 03/02/23 03:40 03/02/23 04:57 03/02/23 03:40 03/02/23 03:40 02/21/23 23:56 Oxygen Flow Rate (L/min) 1 Oxygen Delivery Method Room Air Weight: 210 lb 8.663 oz Body Mass Index (BMI) 30.1 Intake & Output: Intake and Output for Last 24 Hours 02/28/23 03/01/23 03/02/23 23:59 23:59 23:59 Intake Total 2262.13 / 2492.13 2686.6 / 2686.6 Output Total 2080 / 2530 2220 / 2220 650 / 650 Balance 182.13 / -37.87 466.6 / 466.6 -650 / -650 Lab / Micro Data 03/02/23 06:10 03/02/23 06:10 Labs: Laboratory Results - last 24 hr 03/01/23 11:06: POC Glucose 176 H 03/01/23 16:19: POC Glucose 162 H 03/01/23 20:53: POC Glucose 173 H 03/02/23 04:57: POC Glucose 176 H 03/02/23 06:10: WBC 7.5, RBC 2.72 L, Hgb 7.4 L, Hct 23.3 L, MCV 85.7, MCH 27.2, MCHC 31.8 L, RDW Std Deviation 52.5 H, RDW Coeff of [place] 16.7 H, Plt Count 188, MPV 10.8, Immature Gran % (Auto) 1.200 H, Neut % (Auto) 81.1 H, Lymph % (Auto) 5.4 L, [place] % (Auto) 7.8, Eos % (Auto) 4.2, Baso % (Auto) 0.3, Absolute Neuts (auto) 6.1, Absolute Lymphs (auto) 0.40 L, Nucleated RBC % 0, Anisocytosis 1+, Sodium 144, Potassium 2.9 L, Chloride 114 H, Carbon Dioxide 24.0, Anion Gap 6, BUN 21 H, Creatinine 1.50 H, Estim Creat Clear Calc 40.56, Est GFR (MDRD) Af Amer 58 L, Est GFR (MDRD) Non-Af 48 L, BUN/Creatinine Ratio 14.0, Glucose 189 H, Calcium 7.9 L, Phosphorus 3.2, Magnesium 1.8, Total Bilirubin 0.30, AST 23, ALT 47, Alkaline Phosphatase 93, Total Protein 5.1 L, Albumin 1.7 L, Globulin 3.4, Albumin/Globulin Ratio 0.5 L Physical Exam Const oriented x3 and no apparent distress Resp normal respiratory effort GI soft to palpation and non-tender Assessment & Plan Assessment/Plan (1) Partial small bowel obstruction: PLAN: Patient tolerated some clear liquids yesterday with no nausea or vomiting. He reports passing gas from his colostomy. His abdomen is soft and nontender except for at his incision. His white count has returned to normal but his hemoglobin continues to drift downward. His platelets also decreased leading me to believe this is likely dilutional. The patient is on TPN and taking clear liquids and getting IV medications as well. Patient may benefit from diuresis. Patient is hypokalemic and I have replaced the potassium. I will also advance him to a full liquid diet. Jose Michele MD Pager: [facility] [address] [place] [address], [address] [place] [address] Office:
[2023-03-02] MEDS: Potassium Chloride 10mEq/100mL 10 MEQ/100 ML IV.SOLN. 100 MEQ IV BOLUS ×4 (08:23→11:52)
[2023-03-02] MEDS: hydroCHLOROthiazide 25 MG Tablet PO (08:36)
[2023-03-02] MEDS: Smz/Tmp Ds Tablet 1 TABLET PO ×2 (08:36→16:15)
[2023-03-02] MEDS: Furosemide 40 MG/4 ML Vial IV (08:48)
[2023-03-02] MEDS: Losartan Potassium 100 MG Tablet PO (09:42)
[2023-03-02] MEDS: Metoprolol(XL)Succ 100 MG Tablet PO (09:42)
[2023-03-02] MEDS: Pantoprazole Sodium 40 MG in 0.9% Normal Saline (100mL MB+) 100 ML 330 MG IV (09:42)
[2023-03-02] MEDS: Menthol/Lanolin/Calamine/Znox 113 GM Tube 1 APPLIC TOPICAL ×2 (09:43→22:53)
[2023-03-02] MEDS: Ensure Plus High Protein 120 ML LIQUID PO ×3 (11:58→22:53)
--- NOTE | 2023-03-02 13:40 | PCM.PROGNOTE ---
Subjective Subjective Patient seen and examined. He complained of swelling in his lower extremities. HE denied any fever, chills, cough, chest pain, palpitations, dizziness, nausea, vomiting or any other symptoms. He is on room air. His PPN is being discontinued. Diet has been advanced by general surgery. Objective Data Objective Data Vital Signs: Vital Signs Temp Pulse Resp BP Pulse Ox O2 Del Method O2 Flow Rate 98 F 77 17 158/53 H 95 Room Air 1 03/02/23 12:25 03/02/23 12:25 03/02/23 12:25 03/02/23 12:25 03/02/23 12:25 03/02/23 12:25 02/21/23 23:56 Oxygen Flow Rate (L/min) 1 Oxygen Delivery Method Room Air Weight: 210 lb 8.663 oz Body Mass Index (BMI) 30.1 Intake & Output: Intake and Output for Last 24 Hours 02/28/23 03/01/23 03/02/23 23:59 23:59 23:59 Intake Total 2262.13 / 2492.13 2686.6 / 2686.6 3062.6 / 3062.6 Output Total 2080 / 2530 2220 / 2220 2450 / 2450 Balance 182.13 / -37.87 466.6 / 466.6 612.6 / 612.6 Lab / Micro Data 03/02/23 06:10 03/02/23 06:10 Labs: Laboratory Results - last 24 hr 03/01/23 11:06: POC Glucose 176 H 03/01/23 16:19: POC Glucose 162 H 03/01/23 20:53: POC Glucose 173 H 03/02/23 04:57: POC Glucose 176 H 03/02/23 06:10: WBC 7.5, RBC 2.72 L, Hgb 7.4 L, Hct 23.3 L, MCV 85.7, MCH 27.2, MCHC 31.8 L, RDW Std Deviation 52.5 H, RDW Coeff of [place] 16.7 H, Plt Count 188, MPV 10.8, Immature Gran % (Auto) 1.200 H, Neut % (Auto) 81.1 H, Lymph % (Auto) 5.4 L, [place] % (Auto) 7.8, Eos % (Auto) 4.2, Baso % (Auto) 0.3, Absolute Neuts (auto) 6.1, Absolute Lymphs (auto) 0.40 L, Nucleated RBC % 0, Anisocytosis 1+, Sodium 144, Potassium 2.9 L, Chloride 114 H, Carbon Dioxide 24.0, Anion Gap 6, BUN 21 H, Creatinine 1.50 H, Estim Creat Clear Calc 40.56, Est GFR (MDRD) Af Amer 58 L, Est GFR (MDRD) Non-Af 48 L, BUN/Creatinine Ratio 14.0, Glucose 189 H, Calcium 7.9 L, Phosphorus 3.2, Magnesium 1.8, Total Bilirubin 0.30, AST 23, ALT 47, Alkaline Phosphatase 93, Total Protein 5.1 L, Albumin 1.7 L, Globulin 3.4, Albumin/Globulin Ratio 0.5 L Physical Exam Const alert, oriented x3, no apparent distress and average body habitus General Appearance: cooperative, well kempt and well developed Orientation / Consciousness: awake, oriented to person, oriented to place and oriented to time HEENT normocephalic, head/scalp atraumatic, hearing grossly normal bilaterally, moist oral mucous membranes and oropharynx normal Eyes PERRL, EOMs intact bilaterally and conjunctivae normal Neck no lymphadenopathy, supple, no JVD, thyroid normal and no carotid bruits General: trachea midline Lymph Lymphatic: no lymphadenopathy noted and no lymphedema noted Resp normal respiratory effort, normal air movement, no retractions, no use of accessory muscles and clear to auscultation bilaterally Auscultation: Negative for rales, rhonchi or wheezes Cardio regular rate, regular rhythm, S1 normal heart sound, S2 normal heart sound, no murmurs, no rub and no gallops GI normal to inspection, nondistended, normoactive bowel sounds, soft to palpation, non-tender and non-distended GI Narrative: abdomen nontender, non distended, no organomegaly. Colostomy bag has iquid stool. Normal bowel sounds. Intact sutures over abdomen at laparotomy site Palpation: tender other (Diffuse abdominal discomfort to palpation) Extremity normal to inspection, normal capillary refill, no clubbing, cyanosis or edema and no calf tenderness Extremity Narrative: There is a surgical incision over the patient's left knee, this area is clean and dry and there is no discharge from the area. Sutures removed from patient's left knee General Extremity: edema bilateral (bilateral lower extremity edema) lower extremity Details: moderate Skin no rashes or lesions noted Skin Narrative: r General Skin Exam: no breakdown Neuro oriented x3, CN's II-XII intact bilaterally, moves all extremities, no focal motor deficits, no sensory deficits noted and deep tendon reflexes 2+ bilaterally Sensorium / Orientation: awake and alert Speech: speech normal Motor Exam: strength 5/5 throughout and general weakness Psych thought process normal, cooperative and affect normal Appearance: appropriate Assessment & Plan Assessment/Plan (1) Partial small bowel obstruction: PLAN: Plan #Partial small bowel obstruction s/p exploratory laparotomy with small bowel resection on 02/25/2023 diet advanced as per general surgery will dc PPN today general surgery on board. on clear liquid diet #Hypertension on PO hydralazine, losartan and metoprolol on clonidine patch on IV metoprolol prn and IV enalaprilat prn #Torn right big toenail: podiatry saw patient and had bedside debridement of splintered hangnail and ingrowing part of the toenail. daily application of bacitracin. management as per podiatry #CKD 3B: Cr is 1.5 today. baseline Cr is ~ 1.4. Will monitor #Hypernatremia: resolved. Sodium is 144 today #Hypokalemia: potassium today is 2.9 Will replace aggressively and trend. Check magnesium level #Fluid overload: Has bilateral lower extremity edema. This likely due to fluid overload as he received 2 L of the PPN yesterday. We will give a dose of IV Lasix 40 mg x 1 and monitor. #Type 2 diabetes mellitus metformin on hold. Will resume metformin and trend. ISS. Accuchecks ACHS Osteoarthritis of the left knee s/p left total knee replacement PT/OT on board. Fall precautions. #Hyperlipidemia: on statin. DVT prophylaxis: heparin Charges/Coding Visit Charges Inpatient E&M: 63494 Subs Hosp L2
[2023-03-02 13:55] LABS: Bedside Glucose 157 mg/dL (74-106)
[2023-03-02 14:03] LABS: Hematocrit 26.3 % (40-54); Hemoglobin 8.5 g/dL (13.0-16.5)
[2023-03-02 14:13] LABS: Potassium 3.7 mmol/L (3.5-5.1)
[2023-03-02 16:45] LABS: Bedside Glucose 164 mg/dL (74-106)
[2023-03-02] MEDS: Atorvastatin Calcium 10 MG Tablet PO (22:54)
[2023-03-03] VITALS (13 sets, daily range): BP systolic 117–161; BP diastolic 49–78; PULSE 73–78; RESP 14–16; TEMP 36.4–36.8; O2SAT 92–95
[2023-03-03 00:31] LABS: Bedside Glucose 135 mg/dL (74-106)
[2023-03-03] MEDS: Ondansetron 4 MG/2 ML Vial IV ×4 (05:34→23:14)
[2023-03-03] MEDS: Metoprolol Tartrate 5 MG/5 ML Vial IV ×4 (05:34→23:14)
[2023-03-03 06:53] LABS: Bedside Glucose 136 mg/dL (74-106)
[2023-03-03] MEDS: 0.9% Saline Lock 10 ML Syringe IV ×3 (08:34→17:21)
[2023-03-03 08:43] LABS: Absolute Lymphocyte Count 0.53 X10^3/uL (0.83-4.51); Absolute Neutrophil Count 4.9 X10^3/uL (2.0-7.7); Basophil# 0.02 X10^3/uL; Basophil% 0.3 % (0-1); Eosinophil# 0.24 X10^3/uL; Eosinophils% 3.8 % (0-5); Hemoglobin 7.1 g/dL (13.0-16.5); Lymphocyte # 0.53 X10^3/ul (0.83-4.51); Lymphocyte % 8.3 % (19-41); Mean Corp Hgb Conc 30.9 g/dL (32-36); Mean Corpuscular Hgb 26.5 pg (27.0-32.0); Mean Corpuscular Volume 85.8 fL (80-94); Mean Platelet Vol. 10.9 fl (6.2-12.0); Monocyte# 0.59 X10^3/uL; Monocyte% 9.2 % (0-10); NRBC Flagged by Analyzer 0 % (0-5); Neutrophil # 4.92 X10^3/uL (2.7-7.7); POSITIVE DIFFERENTIAL YES; Platelet Count 172 K/mm3 (150-450); RBC Distribution Width CV 16.6 % (11.6-14.6); RBC Distribution Width SD 50.8 fl (35.1-43.9); Red Blood Count 2.68 M/mm3 (4.6-6.2); White Blood Count 6.4 K/mm3 (4.4-11.0)
[2023-03-03 08:45] LABS: Differential Indicated SCAN CRITERIA MET
[2023-03-03 09:02] LABS: Anion Gap 5 (5-15); BUN 20 mg/dL (7-18); BUN/Creat Ratio 11.7 RATIO (10-20); Calcium,Total 7.9 mg/dL (8.5-10.1); Chloride 111 mmol/L (98-107); Creatinine, Serum 1.71 mg/dL (0.70-1.30); EST Glomerular Filtration Rate 41 mL/min (>60); Est Glom Filt Rate - Afr Amer 50 mL/min (>60); Estimated Creatinine Clearance 35.58 ml/min; Glucose 142 mg/dL (74-106); Sodium Level 142 mmol/L (136-145)
[2023-03-03] MEDS: metFORMIN (XR) 500 MG Tablet PO (09:11)
[2023-03-03] MEDS: Smz/Tmp Ds Tablet 1 TABLET PO ×2 (09:11→17:21)
[2023-03-03] MEDS: hydroCHLOROthiazide 25 MG Tablet PO (09:12)
[2023-03-03] MEDS: Menthol/Lanolin/Calamine/Znox 113 GM Tube 1 APPLIC TOPICAL ×2 (09:12→23:08)
[2023-03-03] MEDS: Losartan Potassium 100 MG Tablet PO (09:12)
[2023-03-03] MEDS: Metoprolol(XL)Succ 100 MG Tablet PO (09:13)
[2023-03-03] MEDS: amLODIPine 10 MG Tablet PO (09:13)
[2023-03-03] MEDS: Ensure Plus High Protein 120 ML LIQUID PO ×4 (09:15→23:13)
[2023-03-03 09:30] LABS: Anisocytosis 1+; Hypochromasia 2+
[2023-03-03] MEDS: Pantoprazole Sodium 40 MG in 0.9% Normal Saline (100mL MB+) 100 ML 330 MG IV (10:15)
--- NOTE | 2023-03-03 10:49 | CASEMGMT ---
Social Work Per physician, pt is not medically ready for discharge today. Hollie in TCU updated. MARY Talamantes
--- NOTE | 2023-03-03 11:17 | PN_ITS ---
Subjective Subjective Patient seen and examined. He had no complaints today. He is tolerating a diet. His hb has dropped to 7.1 today, and platelets have dropped some more to 172, from 188. Potassium is 3. Objective Data Objective Data Vital Signs: Vital Signs Temp Pulse Resp BP Pulse Ox O2 Del Method O2 Flow Rate 97.6 F L 76 16 151/58 H 95 Room Air 1 03/03/23 08:57 03/03/23 09:13 03/03/23 08:57 03/03/23 08:57 03/03/23 08:57 03/03/23 08:57 02/21/23 23:56 Oxygen Flow Rate (L/min) 1 Oxygen Delivery Method Room Air Weight: 210 lb 8.663 oz Body Mass Index (BMI) 30.1 Intake & Output: Intake and Output for Last 24 Hours 03/01/23 03/02/23 03/03/23 23:59 23:59 23:59 Intake Total 2686.6 / 2686.6 3062.6 / 3262.6 510 / 510 Output Total 2220 / 2220 2800 / 3050 950 / 950 Balance 466.6 / 466.6 262.6 / 212.6 -440 / -440 Lab / Micro Data 03/03/23 08:30 03/03/23 08:30 Labs: Laboratory Results - last 24 hr 03/02/23 11:49: POC Glucose 157 H 03/02/23 13:50: Hgb 8.5 L, Hct 26.3 L, Potassium 3.7 03/02/23 16:08: POC Glucose 164 H 03/02/23 22:57: POC Glucose 135 H 03/03/23 06:36: POC Glucose 136 H 03/03/23 08:30: WBC 6.4, RBC 2.68 L, Hgb 7.1 L, Hct 23.0 L, MCV 85.8, MCH 26.5 L , MCHC 30.9 L, RDW Std Deviation 50.8 H, RDW Coeff of [place] 16.6 H, Plt Count 172, MPV 10.9, Immature Gran % (Auto) 1.400 H, Neut % (Auto) 77.0 H, Lymph % (Auto) 8.3 L, [place] % (Auto) 9.2, Eos % (Auto) 3.8, Baso % (Auto) 0.3, Absolute Neuts (auto) 4.9, Absolute Lymphs (auto) 0.53 L, Nucleated RBC % 0, Hypochromasia 2+, Anisocytosis 1+, Sodium 142, Potassium 3.0 L, Chloride 111 H, Carbon Dioxide 26.0, Anion Gap 5, BUN 20 H, Creatinine 1.71 H, Estim Creat Clear Calc 35.58, Est GFR (MDRD) Af Amer 50 L, Est GFR (MDRD) Non-Af 41 L, BUN/Creatinine Ratio 11.7, Glucose 142 H, Calcium 7.9 L Physical Exam Const alert, oriented x3, no apparent distress and average body habitus General Appearance: cooperative, well kempt and well developed Orientation / Consciousness: awake, oriented to person, oriented to place and oriented to time HEENT normocephalic, head/scalp atraumatic, hearing grossly normal bilaterally, moist oral mucous membranes and oropharynx normal Eyes PERRL, EOMs intact bilaterally and conjunctivae normal Neck no lymphadenopathy, supple, no JVD, thyroid normal and no carotid bruits General: trachea midline Lymph Lymphatic: no lymphadenopathy noted and no lymphedema noted Resp normal respiratory effort, normal air movement, no retractions, no use of accessory muscles and clear to auscultation bilaterally Auscultation: Negative for rales, rhonchi or wheezes Cardio regular rate, regular rhythm, S1 normal heart sound, S2 normal heart sound, no murmurs, no rub and no gallops GI normal to inspection, nondistended, normoactive bowel sounds, soft to palpation, non-tender and non-distended GI Narrative: abdomen nontender, non distended, no organomegaly. Colostomy bag has iquid stool. Normal bowel sounds. Intact sutures over abdomen at laparotomy site Auscultation: hypoactive bowel sounds Palpation: tender other (Diffuse abdominal discomfort to palpation) Extremity normal to inspection, normal capillary refill, no clubbing, cyanosis or edema and no calf tenderness Extremity Narrative: There is a surgical incision over the patient's left knee, this area is clean and dry and there is no discharge from the area. Sutures removed from patient's left knee General Extremity: edema bilateral (bilateral lower extremity edema) lower extremity Details: moderate Skin no rashes or lesions noted Skin Narrative: r General Skin Exam: no breakdown Neuro oriented x3, CN's II-XII intact bilaterally, moves all extremities, no focal motor deficits, no sensory deficits noted and deep tendon reflexes 2+ bilaterally Sensorium / Orientation: awake and alert Speech: speech normal Motor Exam: strength 5/5 throughout and general weakness Psych thought process normal, cooperative and affect normal Appearance: appropriate Assessment & Plan Assessment/Plan (1) Partial small bowel obstruction: PLAN: Plan #Partial small bowel obstruction * s/p exploratory laparotomy with small bowel resection on 02/25/2023 * diet advanced as per general surgery * now on regular diet. PPN discontinued yesterday * general surgery on board. * #Hypertension * on PO hydralazine, losartan and metoprolol * on clonidine patch * on IV metoprolol prn and IV enalaprilat prn * #Torn right big toenail: * podiatry saw patient and had bedside debridement of splintered hangnail and ingrowing part of the toenail. * daily application of bacitracin. * management as per podiatry #CKD 3B: Cr is slightly up to 1.71 today. baseline Cr is ~ 1.4. Will monitor #Hypernatremia: resolved. #Hypokalemia: potassium today is 3.0 Will replace aggressively and trend. Check magnesium level #Fluid overload: Bilateral lower extremity edema has improved significantly. We will continue diuresing today. #Anemia: * Hemoglobin is down to 7.1. Patient does not appear to be bleeding and is stable. * We will hold off on transfusion for now. There is a concern this could be hemodilutional as also lets have dropped. * Will monitor hemoglobin. * #Type 2 diabetes mellitus * on metformin. ISS. Accuchecks ACHS * Osteoarthritis of the left knee * s/p left total knee replacement * PT/OT on board. Fall precautions. * #Hyperlipidemia: on statin. DVT prophylaxis: heparin Disposition: Anticipate DC to TCU for the next 24 to 48 hours. Charges/Coding Visit Charges Inpatient E&M: 47613 Subs Hosp L2
[2023-03-03] MEDS: Insulin Lispro 100 UNIT/ML INSULN.PEN SC ×2 (11:44→23:10)
[2023-03-03] MEDS: Potassium Chloride Oral Tablet 20 MEQ 60 MEQ PO (11:44)
[2023-03-03] MEDS: Furosemide 40 MG/4 ML Vial IV ×2 (11:44→17:21)
[2023-03-03 12:12] LABS: Bedside Glucose 174 mg/dL (74-106)
[2023-03-03] MEDS: Atorvastatin Calcium 10 MG Tablet PO (23:07)
[2023-03-03 23:57] LABS: Bedside Glucose 162 mg/dL (74-106)
[2023-03-04] VITALS (8 sets, daily range): BP systolic 129–146; BP diastolic 55–60; PULSE 75–80; RESP 16–18; TEMP 36.6–37.2; O2SAT 92–95; BMI 30.3
[2023-03-04] MEDS: Metoprolol Tartrate 5 MG/5 ML Vial IV (05:49)
[2023-03-04] MEDS: Ondansetron 4 MG/2 ML Vial IV ×2 (05:49→11:58)
[2023-03-04] MEDS: 0.9% Saline Lock 10 ML Syringe IV (05:50)
[2023-03-04] MEDS: Insulin Lispro 100 UNIT/ML INSULN.PEN SC ×2 (06:32→11:59)
[2023-03-04 06:41] LABS: Bedside Glucose 148 mg/dL (74-106)
[2023-03-04 06:54] LABS: Bedside Glucose 154 mg/dL (74-106)
--- NOTE | 2023-03-04 08:20 | PCM.PN.SRG ---
Subjective Subjective The patient reports he tolerated regular diet. He is having bowel output. He is not having any abdominal pain. Objective Data Objective Data Vital Signs: Vital Signs Temp Pulse Resp BP Pulse Ox O2 Del Method O2 Flow Rate 97.8 F 80 16 141/60 H 93 Room Air 1 03/04/23 05:47 03/04/23 05:49 03/04/23 05:47 03/04/23 06:01 03/04/23 05:47 03/04/23 05:47 02/21/23 23:56 Oxygen Flow Rate (L/min) 1 Oxygen Delivery Method Room Air Weight: 211 lb 3.245 oz Body Mass Index (BMI) 30.3 Intake & Output: Intake and Output for Last 24 Hours 03/02/23 03/03/23 03/04/23 23:59 23:59 23:59 Intake Total 3062.6 / 3262.6 510 / 910 600 / 600 Output Total 2800 / 3050 950 / 3350 3050 / 3050 Balance 262.6 / 212.6 -440 / -2440 -2450 / -2450 Lab / Micro Data 03/03/23 08:30 03/03/23 08:30 Labs: Laboratory Results - last 24 hr 03/03/23 08:30: WBC 6.4, RBC 2.68 L, Hgb 7.1 L, Hct 23.0 L, MCV 85.8, MCH 26.5 L, MCHC 30.9 L, RDW Std Deviation 50.8 H, RDW Coeff of [place] 16.6 H, Plt Count 172, MPV 10.9, Immature Gran % (Auto) 1.400 H, Neut % (Auto) 77.0 H, Lymph % (Auto) 8.3 L, [place] % (Auto) 9.2, Eos % (Auto) 3.8, Baso % (Auto) 0.3, Absolute Neuts (auto) 4.9, Absolute Lymphs (auto) 0.53 L, Nucleated RBC % 0, Hypochromasia 2+, Anisocytosis 1+, Sodium 142, Potassium 3.0 L, Chloride 111 H, Carbon Dioxide 26.0, Anion Gap 5, BUN 20 H, Creatinine 1.71 H, Estim Creat Clear Calc 35.58, Est GFR (MDRD) Af Amer 50 L, Est GFR (MDRD) Non-Af 41 L, BUN/Creatinine Ratio 11.7, Glucose 142 H, Calcium 7.9 L 03/03/23 11:25: POC Glucose 174 H 03/03/23 16:40: POC Glucose 148 H 03/03/23 23:09: POC Glucose 162 H 03/04/23 06:31: POC Glucose 154 H Physical Exam Const oriented x3 and no apparent distress Resp normal respiratory effort GI soft to palpation and non-tender Assessment & Plan Assessment/Plan (1) Partial small bowel obstruction: PLAN: Patient still complaining of bilateral lower extremity swelling but he reports he is tolerating a diet with stool from his colostomy. He is not having any abdominal pain. As long as his hemoglobin is stable today he may be transferred to TCU. I will see him there on Tuesday or Tuesday to remove his asmmi. Patient may resume Eliquis. Jose Michele MD Pager: [facility] [address] [place] [address], [address] [place] [address] Office:
[2023-03-04] MEDS: Menthol/Lanolin/Calamine/Znox 113 GM Tube 1 APPLIC TOPICAL ×2 (09:09→21:52)
[2023-03-04] MEDS: Ensure Plus High Protein 120 ML LIQUID PO ×3 (09:09→21:53)
[2023-03-04] MEDS: Losartan Potassium 100 MG Tablet PO (09:10)
[2023-03-04] MEDS: hydroCHLOROthiazide 25 MG Tablet PO (09:10)
[2023-03-04] MEDS: Smz/Tmp Ds Tablet 1 TABLET PO ×2 (09:10→16:32)
[2023-03-04] MEDS: Metoprolol(XL)Succ 100 MG Tablet PO (09:10)
[2023-03-04] MEDS: metFORMIN (XR) 500 MG Tablet PO (09:10)
[2023-03-04] MEDS: amLODIPine 10 MG Tablet PO (09:11)
[2023-03-04] MEDS: Furosemide 40 MG/4 ML Vial IV (09:26)
[2023-03-04] MEDS: Pantoprazole Sodium 40 MG in 0.9% Normal Saline (100mL MB+) 100 ML 330 MG IV (09:27)
[2023-03-04 09:44] LABS: Absolute Lymphocyte Count 0.54 X10^3/uL (0.83-4.51); Basophil# 0.01 X10^3/uL; Basophil% 0.2 % (0-1); Eosinophil# 0.19 X10^3/uL; Eosinophils% 2.9 % (0-5); Hematocrit 22.8 % (40-54); Hemoglobin 7.4 g/dL (13.0-16.5); Lymphocyte # 0.54 X10^3/ul (0.83-4.51); Lymphocyte % 8.1 % (19-41); Mean Corp Hgb Conc 32.5 g/dL (32-36); Mean Corpuscular Hgb 27.3 pg (27.0-32.0); Mean Corpuscular Volume 84.1 fL (80-94); Mean Platelet Vol. 11.1 fl (6.2-12.0); Monocyte# 0.79 X10^3/uL; Monocyte% 11.9 % (0-10); NRBC Flagged by Analyzer 0 % (0-5); Neutrophil # 5.03 X10^3/uL (2.7-7.7); Neutrophil % 75.7 % (47-70); POSITIVE DIFFERENTIAL YES; Platelet Count 185 K/mm3 (150-450); RBC Distribution Width CV 16.7 % (11.6-14.6); RBC Distribution Width SD 50.6 fl (35.1-43.9); Red Blood Count 2.71 M/mm3 (4.6-6.2); White Blood Count 6.6 K/mm3 (4.4-11.0)
--- NOTE | 2023-03-04 09:44 | NURSING ---
BMP and CBC obtained via PICC line and sent down to lab.
[2023-03-04 09:47] LABS: Differential Indicated SCAN CRITERIA MET
[2023-03-04 10:05] LABS: Anion Gap 7 (5-15); BUN 25 mg/dL (7-18); BUN/Creat Ratio 11.5 RATIO (10-20); Chloride 107 mmol/L (98-107); Creatinine, Serum 2.17 mg/dL (0.70-1.30); EST Glomerular Filtration Rate 31 mL/min (>60); Est Glom Filt Rate - Afr Amer 38 mL/min (>60); Estimated Creatinine Clearance 28.03 ml/min; Glucose 160 mg/dL (74-106); Potassium 3.2 mmol/L (3.5-5.1); Sodium Level 141 mmol/L (136-145)
[2023-03-04 10:23] LABS: Differential Comment SCANNED
--- NOTE | 2023-03-04 10:55 | RAD_ITS ---
INDICATION: pain EXAMINATION/TECHNIQUE: X-RAY - LEFT XR Ankle 2 Views 2 VIEWS COMPARISON: No relevant prior comparison study available FINDINGS: SOFT TISSUES: Diffuse soft tissue swelling. No radiopaque foreign body. BONES/JOINTS: No acute fracture or subluxation.. Normal alignment. Preservation of the joint space.. Posterior calcaneal spur. RAD/Ankle 2 Views IMPRESSION: Soft tissues swelling. No evidence of acute osseous injury. Electronically Signed: Justice Samuel MD at 12:04 EDT ,
--- NOTE | 2023-03-04 10:55 | RAD_ITS ---
INDICATION: pain EXAMINATION/TECHNIQUE: X-RAY - LEFT XR Foot 2 Views 2 VIEWS COMPARISON: No relevant prior comparison study available FINDINGS: SOFT TISSUES: No soft tissue swelling or gas. No radiopaque foreign body. BONES/JOINTS: No acute fracture or subluxation.. Demineralization of the osseous structures. 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 Small posterior calcaneal spur.. No sclerotic or destructive changes observed. RAD/Foot 2 Views IMPRESSION: Degenerative arthrosis. No demonstrated acute osseous changes. Electronically Signed: Justice Samuel MD at 13:38 EDT ,
[2023-03-04] MEDS: Potassium Chloride Oral Tablet 20 MEQ 40 MEQ PO (11:58)
[2023-03-04 12:12] LABS: Bedside Glucose 175 mg/dL (74-106)
[2023-03-04] MEDS: APIXABAN 2.5 MG TABLET (WCH) PO ×2 (15:05→21:51)
--- NOTE | 2023-03-04 15:05 | PCM.PROGNOTE ---
Objective Data Objective Data Vital Signs: Vital Signs Temp Pulse Resp BP Pulse Ox O2 Del Method O2 Flow Rate 99 F 78 16 146/58 H 94 Room Air 1 03/04/23 09:45 03/04/23 09:45 03/04/23 09:45 03/04/23 09:45 03/04/23 11:46 03/04/23 09:45 02/21/23 23:56 Oxygen Flow Rate (L/min) 1 Oxygen Delivery Method Room Air Weight: 211 lb 3.245 oz Body Mass Index (BMI) 30.3 Intake & Output: Intake and Output for Last 24 Hours 03/02/23 03/03/23 03/04/23 23:59 23:59 23:59 Intake Total 3062.6 / 3262.6 510 / 910 710 / 710 Output Total 2800 / 3050 950 / 3350 3050 / 3050 Balance 262.6 / 212.6 -440 / -2440 -2340 / -2340 Lab / Micro Data 03/04/23 09:35 03/04/23 09:35 Labs: Laboratory Results - last 24 hr 03/03/23 16:40: POC Glucose 148 H 03/03/23 23:09: POC Glucose 162 H 03/04/23 06:31: POC Glucose 154 H 03/04/23 09:35: WBC 6.6, RBC 2.71 L, Hgb 7.4 L, Hct 22.8 L, MCV 84.1, MCH 27.3, MCHC 32.5 D, RDW Std Deviation 50.6 H, RDW Coeff of [place] 16.7 H, Plt Count 185, MPV 11.1, Immature Gran % (Auto) 1.200 H, Neut % (Auto) 75.7 H, Lymph % (Auto) 8.1 L, [place] % (Auto) 11.9 H, Eos % (Auto) 2.9, Baso % (Auto) 0.2, Absolute Neuts (auto) 5.0, Absolute Lymphs (auto) 0.54 L, Nucleated RBC % 0, Differential Comment SCANNED, Sodium 141, Potassium 3.2 L, Chloride 107, Carbon Dioxide 27.0, Anion Gap 7, BUN 25 H, Creatinine 2.17 H, Estim Creat Clear Calc 28.03, Est GFR (MDRD) Af Amer 38 L, Est GFR (MDRD) Non-Af 31 L, BUN/Creatinine Ratio 11.5, Glucose 160 H, Calcium 8.0 L 03/04/23 11:50: POC Glucose 175 H Radiography Diagnostic Testing: Radiology Impression Ankle X-Ray 03/04/23 10:55 IMPRESSION: Soft tissues swelling. No evidence of acute osseous injury. Electronically Signed: Justice Samuel MD at 12:04 EDT , Foot X-Ray 03/04/23 10:55 IMPRESSION: Degenerative arthrosis. No demonstrated acute osseous changes. Electronically Signed: Justice Samuel MD at 13:38 EDT ,
--- NOTE | 2023-03-04 15:08 | PN_ITS ---
Subjective Subjective Patient seen and examined. He was complaining of pain in his right foot. He had no other complaints. She is creatinine has trended up slightly to 2.17. Review of systems otherwise negative he has remained hemodynamically stable. Objective Data Objective Data Vital Signs: Vital Signs Temp Pulse Resp BP Pulse Ox O2 Del Method O2 Flow Rate 99 F 78 16 146/58 H 94 Room Air 1 03/04/23 09:45 03/04/23 09:45 03/04/23 09:45 03/04/23 09:45 03/04/23 11:46 03/04/23 09:45 02/21/23 23:56 Oxygen Flow Rate (L/min) 1 Oxygen Delivery Method Room Air Weight: 211 lb 3.245 oz Body Mass Index (BMI) 30.3 Intake & Output: Intake and Output for Last 24 Hours 03/02/23 03/03/23 03/04/23 23:59 23:59 23:59 Intake Total 3062.6 / 3262.6 510 / 910 710 / 710 Output Total 2800 / 3050 950 / 3350 3050 / 3050 Balance 262.6 / 212.6 -440 / -2440 -2340 / -2340 Lab / Micro Data 03/04/23 09:35 03/04/23 09:35 Labs: Laboratory Results - last 24 hr 03/03/23 16:40: POC Glucose 148 H 03/03/23 23:09: POC Glucose 162 H 03/04/23 06:31: POC Glucose 154 H 03/04/23 09:35: WBC 6.6, RBC 2.71 L, Hgb 7.4 L, Hct 22.8 L, MCV 84.1, MCH 27.3, MCHC 32.5 D, RDW Std Deviation 50.6 H, RDW Coeff of [place] 16.7 H, Plt Count 185, MPV 11.1, Immature Gran % (Auto) 1.200 H, Neut % (Auto) 75.7 H, Lymph % (Auto) 8.1 L, [place] % (Auto) 11.9 H, Eos % (Auto) 2.9, Baso % (Auto) 0.2, Absolute Neuts (auto) 5.0, Absolute Lymphs (auto) 0.54 L, Nucleated RBC % 0, Differential C omment SCANNED, Sodium 141, Potassium 3.2 L, Chloride 107, Carbon Dioxide 27.0, Anion Gap 7, BUN 25 H, Creatinine 2.17 H, Estim Creat Clear Calc 28.03, Est GFR (MDRD) Af Amer 38 L, Est GFR (MDRD) Non-Af 31 L, BUN/Creatinine Ratio 11.5, Glucose 160 H, Calcium 8.0 L 03/04/23 11:50: POC Glucose 175 H Radiography Diagnostic Testing: Radiology Impression Ankle X-Ray 03/04/23 10:55 IMPRESSION: Soft tissues swelling. No evidence of acute osseous injury. Electronically Signed: Justice Samuel MD at 12:04 EDT , Foot X-Ray 03/04/23 10:55 IMPRESSION: Degenerative arthrosis. No demonstrated acute osseous changes. Electronically Signed: Justice Samuel MD at 13:38 EDT , Physical Exam Const alert, oriented x3, no apparent distress and average body habitus General Appearance: cooperative, well kempt and well developed Orientation / Consciousness: awake, oriented to person, oriented to place and oriented to time HEENT normocephalic, head/scalp atraumatic, hearing grossly normal bilaterally, moist oral mucous membranes and oropharynx normal Eyes PERRL, EOMs intact bilaterally and conjunctivae normal Neck no lymphadenopathy, supple, no JVD, thyroid normal and no carotid bruits General: trachea midline Lymph Lymphatic: no lymphadenopathy noted and no lymphedema noted Resp normal respiratory effort, normal air movement, no retractions, no use of accessory muscles and clear to auscultation bilaterally Auscultation: Negative for rales, rhonchi or wheezes Cardio regular rate, regular rhythm, S1 normal heart sound, S2 normal heart sound, no murmurs, no rub and no gallops GI normal to inspection, nondistended, normoactive bowel sounds, soft to palpation, non-tender and non-distended GI Narrative: abdomen nontender, non distended, no organomegaly. Colostomy bag has iquid st ool. Normal bowel sounds. Intact sutures over abdomen at laparotomy site Auscultation: hypoactive bowel sounds Palpation: tender other (Diffuse abdominal discomfort to palpation) Extremity normal to inspection, normal capillary refill, no clubbing, cyanosis or edema and no calf tenderness Extremity Narrative: There is a surgical incision over the patient's left knee, this area is clean and dry and there is no discharge from the area. Sutures removed from patient's left knee General Extremity: edema bilateral (bilateral lower extremity edema) lower extremity Details: moderate Skin no rashes or lesions noted Skin Narrative: r General Skin Exam: no breakdown Neuro oriented x3, CN's II-XII intact bilaterally, moves all extremities, no focal motor deficits, no sensory deficits noted and deep tendon reflexes 2+ bi laterally Sensorium / Orientation: awake and alert Speech: speech normal Motor Exam: strength 5/5 throughout and general weakness Psych thought process normal, cooperative and affect normal Appearance: appropriate Assessment & Plan Assessment/Plan (1) Partial small bowel obstruction: PLAN: Plan #Partial small bowel obstruction * s/p exploratory laparotomy with small bowel resection on 02/25/2023 * diet advanced as per general surgery * now on regular diet. * general surgery on board. * #Hypertension * on PO hydralazine, losartan and metoprolol * on clonidine patch * on IV metoprolol prn and IV enalaprilat prn * #Torn right big toenail: * podiatry saw patient and had bedside debridement of splintered hangnail and ingrowing part of the toenail. * daily application of bacitracin. * management as per podiatry * Complained of right foot pain today. X-ray done showed degenerative arthrosis . PT OT on board. #MEAGAN on CKD 3B: Creatinine trended further post to 2.21 today from 1.7 yesterday . Likely due to Lasix. Lasix discontinued. Trend creatinine. #Hypernatremia: resolved. #Hypokalemia: Potassium is 3.2 today. Replace and trend. #Fluid overload: Bilateral lower extremity edema has improved significantly. DC Lasix due to upward trending creatinine. #Anemia: * Hemoglobin today 7.4. Will monitor. * * #Type 2 diabetes mellitus * on metformin. ISS. Accuchecks ACHS * Osteoarthritis of the left knee * s/p left total knee replacement * PT/OT on board. Fall precautions. * #Hyperlipidemia: on statin. DVT prophylaxis: heparin Disposition: For likely DC to TCU tomorrow. Charges/Coding Visit Charges Inpatient E&M: 19365 Subs Hosp L2
[2023-03-04] MEDS: oxyCODONE 5 MG Tablet PO (16:31)
[2023-03-04 16:45] LABS: Bedside Glucose 142 mg/dL (74-106)
[2023-03-04] MEDS: Atorvastatin Calcium 10 MG Tablet PO (21:52)
[2023-03-04 22:30] LABS: Bedside Glucose 138 mg/dL (74-106)
[2023-03-05 02:41] VITALS: BP 138/53; PULSE 73; RESP 16; TEMP 37.2; O2SAT 93
[2023-03-05] MEDS: oxyCODONE 5 MG Tablet PO (05:29)
[2023-03-05] MEDS: 0.9% Saline Lock 10 ML Syringe IV ×2 (05:30→10:26)
[2023-03-05 05:37] VITALS: BMI 30.4
[2023-03-05 07:02] LABS: Bedside Glucose 126 mg/dL (74-106)
[2023-03-05 07:21] LABS: Absolute Lymphocyte Count 0.62 X10^3/uL (0.83-4.51); Absolute Neutrophil Count 3.9 X10^3/uL (2.0-7.7); Basophil# 0.02 X10^3/uL; Basophil% 0.4 % (0-1); Eosinophil# 0.22 X10^3/uL; Eosinophils% 3.9 % (0-5); Hematocrit 23.8 % (40-54); Hemoglobin 7.3 g/dL (13.0-16.5); Lymphocyte # 0.62 X10^3/ul (0.83-4.51); Lymphocyte % 11.1 % (19-41); Mean Corp Hgb Conc 30.7 g/dL (32-36); Mean Corpuscular Hgb 26.3 pg (27.0-32.0); Mean Corpuscular Volume 85.6 fL (80-94); Mean Platelet Vol. 11.5 fl (6.2-12.0); Monocyte# 0.72 X10^3/uL; Monocyte% 12.9 % (0-10); NRBC Flagged by Analyzer 0 % (0-5); Neutrophil # 3.92 X10^3/uL (2.7-7.7); Neutrophil % 70.1 % (47-70); Platelet Count 191 K/mm3 (150-450); RBC Distribution Width CV 16.5 % (11.6-14.6); RBC Distribution Width SD 51.3 fl (35.1-43.9); Red Blood Count 2.78 M/mm3 (4.6-6.2); White Blood Count 5.6 K/mm3 (4.4-11.0)
[2023-03-05 07:51] LABS: Anion Gap 9 (5-15); BUN 36 mg/dL (7-18); BUN/Creat Ratio 15.3 RATIO (10-20); Calcium,Total 8.1 mg/dL (8.5-10.1); Chloride 107 mmol/L (98-107); Creatinine, Serum 2.36 mg/dL (0.70-1.30); EST Glomerular Filtration Rate 28 mL/min (>60); Est Glom Filt Rate - Afr Amer 34 mL/min (>60); Estimated Creatinine Clearance 25.78 ml/min; Glucose 143 mg/dL (74-106); Potassium 3.8 mmol/L (3.5-5.1); Sodium Level 142 mmol/L (136-145)
[2023-03-05 08:22] VITALS: BP 147/67; PULSE 77; RESP 18; TEMP 36.7; O2SAT 94
[2023-03-05] MEDS: amLODIPine 10 MG Tablet PO (08:27)
[2023-03-05 08:28] VITALS: PULSE 77
[2023-03-05] MEDS: Losartan Potassium 100 MG Tablet PO (08:28)
[2023-03-05] MEDS: hydroCHLOROthiazide 25 MG Tablet PO (08:28)
[2023-03-05] MEDS: metFORMIN (XR) 500 MG Tablet PO (08:28)
[2023-03-05] MEDS: Metoprolol(XL)Succ 100 MG Tablet PO (08:28)
[2023-03-05] MEDS: Smz/Tmp Ds Tablet 1 TABLET PO (08:29)
[2023-03-05] MEDS: APIXABAN 2.5 MG TABLET (WCH) PO (08:29)
[2023-03-05] MEDS: Menthol/Lanolin/Calamine/Znox 113 GM Tube 1 APPLIC TOPICAL (08:29)
[2023-03-05] MEDS: Ensure Plus High Protein 120 ML LIQUID PO ×2 (08:30→13:51)
--- NOTE | 2023-03-05 08:55 | PN.SURG_ITS ---
Subjective Subjective Patient tolerating diet and having output from his colostomy. Patient's hemoglobin is stable at 7.3 Objective Data Objective Data Vital Signs: Vital Signs Temp Pulse Resp BP Pulse Ox O2 Del Method O2 Flow Rate 98.0 F 77 18 147/67 H 94 Room Air 1 03/05/23 08:22 03/05/23 08:28 03/05/23 08:22 03/05/23 08:22 03/05/23 08:22 03/05/23 08:22 02/21/23 23:56 Oxygen Flow Rate (L/min) 1 Oxygen Delivery Method Room Air Weight: 212 lb 8.41 oz Body Mass Index (BMI) 30.4 Intake & Output: Intake and Output for Last 24 Hours 03/03/23 03/04/23 03/05/23 23:59 23:59 23:59 Intake Total 510 / 910 1760 / 2060 600 / 600 Output Total 950 / 3350 4500 / 4800 700 / 700 Balance -440 / -2440 -2740 / -2740 -100 / -100 Lab / Micro Data 03/05/23 07:11 03/05/23 07:11 Labs: Laboratory Results - last 24 hr 03/04/23 09:35: WBC 6.6, RBC 2.71 L, Hgb 7.4 L, Hct 22.8 L, MCV 84.1, MCH 27.3, MCHC 32.5 D, RDW Std Deviation 50.6 H, RDW Coeff of [place] 16.7 H, Plt Count 185, MPV 11.1, Immature Gran % (Auto) 1.200 H, Neut % (Auto) 75.7 H, Lymph % (Auto) 8.1 L, [place] % (Auto) 11.9 H, Eos % (Auto) 2.9, Baso % (Auto) 0.2, Absolute Neuts (auto) 5.0, Absolute Lymphs (auto) 0.54 L, Nucleated RBC % 0, Differential Comment SCANNED, Sodium 141, Potassium 3.2 L, Chloride 107, Carbon Dioxide 27.0, Anion Gap 7, BUN 25 H, Creatinine 2.17 H, Estim Creat Clear Calc 28.03, Est GFR (MDRD) Af Amer 38 L, Est GFR (MDRD) Non-Af 31 L, BUN/Creatinine Ratio 11.5, Glucose 160 H, Calcium 8.0 L 10/20/23 11:50: POC Glucose 175 H 03/04/23 16:23: POC Glucose 142 H 03/04/23 21:47: POC Glucose 138 H 03/05/23 06:44: POC Glucose 126 H 03/05/23 07:11: WBC 5.6, RBC 2.78 L, Hgb 7.3 L, Hct 23.8 L, MCV 85.6, MCH 26.3 L , MCHC 30.7 L D, RDW Std Deviation 51.3 H, RDW Coeff of [place] 16.5 H, Plt Count 191, MPV 11.5, Immature Gran % (Auto) 1.600 H, Neut % (Auto) 70.1 H, Lymph % (Auto) 11.1 L, [place] % (Auto) 12.9 H, Eos % (Auto) 3.9, Baso % (Auto) 0.4, Absolute Neuts (auto) 3.9, Absolute Lymphs (auto) 0.62 L, Nucleated RBC % 0, Sodium 142, Potassium 3.8, Chloride 107, Carbon Dioxide 26.0, Anion Gap 9, BUN 36 H, Creatinine 2.36 H, Estim Creat Clear Calc 25.78, Est GFR (MDRD) Af Amer 34 L, Est GFR (MDRD) Non-Af 28 L, BUN/Creatinine Ratio 15.3, Glucose 143 H, Calcium 8.1 L Radiography Diagnostic Testing: Radiology Impression Ankle X-Ray 03/04/23 10:55 IMPRESSION: Soft tissues swelling. No evidence of acute osseous injury. Electronically Signed: Justice Samuel MD at 12:04 EDT Reading Location ID and State: [facility] / [place] Tel , Service support , Foot X-Ray 03/04/23 10:55 IMPRESSION: Degenerative arthrosis. No demonstrated acute osseous changes. Electronically Signed: Justice Samuel MD at 13:38 EDT , Physical Exam Const oriented x3 and no apparent distress Resp normal respiratory effort GI soft to palpation and non-tender GI Narrative: Colostomy in place with gas and liquid stool. Incision clean dry and intact with sammi Assessment & Plan Assessment/Plan (1) Partial small bowel obstruction: PLAN: Patient is tolerating diet and having flatus and stool from colostomy. Hemoglobin is stable at 7.3 okay to resume Eliquis at and transfer to TCU. Dr. Michele will plan to remove his sammi either Tuesday or Tuesday in the TCU. Maribel Casey M.D. Pager: [phone] [facility] [address] [place] [address], [facility], [address] [place] [address] Office: [phone]
[2023-03-05] MEDS: 0.9% Normal Saline (500mL Bag) 500 ML IV (10:26)
[2023-03-05] MEDS: Pantoprazole Sodium 40 MG Tablet PO (10:28)
[2023-03-05 11:53] LABS: Bedside Glucose 143 mg/dL (74-106)
--- NOTE | 2023-03-05 13:03 | TREXTCAR_ITS ---
Diet Diet Order/Speech Therapy: 03/03/23 08:30 Diet: Consistent Carb - Calorie Controlled Is pt able to select menu?: Yes Diet Comments: NO CARBONATION How many daily calories?: 1999 calorie Routine Orders/Code Status Enema Type: Fleetz Enema Frequency: Daily PRN Suppository Type: Dulcolax 10mg Suppository Frequency: Daily PRN O2 Frequency: PRN Keep PO Greater than or Equal to (%): 90 Wound(s) Lt knee: Wound Type: Surgical Incision ABDOMEN: Wound Type: Surgical Incision Left top of foot: Wound Type: Blister Coccyx: Wound Type: Pressure Injury Therapies Weight Bearing: Weight bearing as tolerated Physical Therapy: Eval and Treat Occupational Therapy: Eval and Treat Speech Therapy: Eval and Treat Problem/Diagnosis (1) Partial small bowel obstruction: Status: Acute Code(s): K56.600 - Partial intestinal obstruction, unspecified as to cause Plan #Partial small bowel obstruction * s/p exploratory laparotomy with small bowel resection on 02/25/2023 * diet advanced as per general surgery * now on regular diet. * general surgery on board. * #Hypertension * on PO hydralazine, losartan and metoprolol * on clonidine patch * on IV metoprolol prn and IV enalaprilat prn * #Torn right big toenail: * podiatry saw patient and had bedside debridement of splintered hangnail and ingrowing part of the toenail. * daily application of bacitracin. * management as per podiatry * Complained of right foot pain today. X-ray done showed degenerative arthrosis. PT OT on board. #MEAGAN on CKD 3B: Creatinine trended further post to 2.21 today from 1.7 yesterday. Likely due to Lasix. Lasix discontinued. Trend creatinine. #Hypernatremia: resolved. #Hypokalemia: Potassium is 3.2 today. Replace and trend. #Fluid overload: Bilateral lower extremity edema has improved significantly. DC Lasix due to upward trending creatinine. #Anemia: * Hemoglobin today 7.4. Will monitor. * * #Type 2 diabetes mellitus * on metformin. ISS. Accuchecks ACHS * Osteoarthritis of the left knee * s/p left total knee replacement * PT/OT on board. Fall precautions. * #Hyperlipidemia: on statin. DVT prophylaxis: heparin Disposition: For likely DC to TCU tomorrow. Allergies/Procedures Done in Hospital Allergies hydromorphone [From Dilaudid] Adverse Reaction (Verified 02/15/23 10:18) Other tremors PostOp/ not certain if from Dilaudid meperidine [From Demerol] Adverse Reaction (Verified 02/15/23 10:18) Nausea/Vom/Diarrhea Procedures: None Type of Care/Length of Stay Estimated LOS: Convalescent Care Less Than 30 days Type of Care Needed: Skilled Rehab Potential: Fair Prognosis: Fair Additional Orders/Day of Discharge Day of Discharge: 03/05/23 Dietary and Speech Recommendations Dietitian Recommendations/Changes: Recommend advance diet as tolerated to transitional, continue add ensure plus high protein 120mL 4x/day w/ medpass. Continue daily wts. Discharge Plan Admission Admit Date/Time: 02/19/23 12:42 Primary Reason for Your Visit: small bowel obstruction Attending Provider: Neena Medina Primary Care Provider: Rigo Izaguirre Consulting Providers: Jose Michele; Mango Sal; Hamzah Bob; [place] Mir Instructions Patient Instructions: Small Bowel Obstruction Discharge Orders/Prescriptions Prescriptions: New oxycodone 5 mg Tablet 5 mg PO Q6H PRN PRN (Reason: Pain Score 6-10) 3 Days Qty: 12 0RF Continued amlodipine 10 mg tablet 10 mg PO DAILY metoprolol succinate 100 MG tablet 100 mg PO DAILY Patient Comments: BP losartan 100 MG tablet 100 mg PO DAILY Patient Comments: BP metformin 500 MG tablet 500 mg PO DAILY rosuvastatin 5 mg tablet 5 mg PO DAILY acetaminophen 500 mg tablet 1,000 mg PO Q6H PRN Qty: 100 0RF Eliquis 2.5 mg tablet 2.5 mg PO BID Qty: 28 0RF Patient Comments: 2.5MG PO BID Eliquis 5 mg Tablet 2.5 mg PO BID Qty: 0 0RF Patient Comments: 2.5MGPO BID sennosides-docusate sodium [Stool Softener-Stimulant Laxat] 8.6-50 mg Tablet 2 tab PO BID Qty: 0 0RF Discontinued oxycodone 5 mg tablet 5 - 10 mg PO Q4H PRN (Reason: pain) 7 Days Qty: 60 0RF acetaminophen 500 mg Tablet 1,000 mg PO Q8 Qty: 0 0RF oxycodone 5 mg Tablet 5 - 10 mg PO Q4H PRN PRN (Reason: Pain Score 4-10) 2 Days Qty: 10 0RF Referrals / Follow Up: Ry Victor DPM [Med Staff - Active Staff] - Within 2 Weeks (follow up for nail care) Rigo Izaguirre MD [Primary Care Provider] - Within 1 Week Disposition Disposition (needs filled in before D/C Order can be placed): [facility]
[2023-03-05 14:48] VITALS: BP 145/67; PULSE 75; RESP 18; TEMP 36.7; O2SAT 94
--- NOTE | 2023-03-05 14:53 | DS.PCM_ITS ---
Providers Date of Admission: 02/19/23 Date of Discharge: 03/05/23 Primary Care Physician: Dr. Rigo Izaguirre MD Consultations 02/19/23 16:04 Consult: General Surgery Routine Consulting Provider: Jose Michele Reason for Consult: small bowel obstruction EMERGENT Consult: No Notified: Yes Date Notified: 02/19/23 Time Notified: 12:46 Method of Notification: Verbal 02/28/23 04:33 Consult: Onc/Wound/fire prevention inspector Routine Comment: Reason for Consult:: left knee sammi assess for removal? 02/28/23 11:27 Consult: Podiatry Routine Consulting Provider: [place] Mir Reason for Consult: torn right great toenail EMERGENT Consult: No Notified: Yes Date Notified: 02/28/23 Time Notified: 11:27 Method of Notification: Text Reason For Visit: SMALL BOWEL OBSTRUCTION Diagnosis Discharge Diagnosis (1) Partial small bowel obstruction: Status: Acute Code(s): K56.600 - Partial intestinal obstruction, unspecified as to cause Plan #Partial small bowel obstruction * s/p exploratory laparotomy with small bowel resection on 02/25/2023 * diet advanced as per general surgery * now on regular diet. * general surgery on board. * #Hypertension * on PO hydralazine, losartan and metoprolol * on clonidine patch * on IV metoprolol prn and IV enalaprilat prn * #Torn right big toenail: * podiatry saw patient and had bedside debridement of splintered hangnail and ingrowing part of the toenail. * daily application of bacitracin. * management as per podiatry * Complained of right foot pain today. X-ray done showed degenerative arthrosis. PT OT on board. #MEAGAN on CKD 3B: Creatinine trended further post to 2.21 today from 1.7 yesterday. Likely due to Lasix. Lasix discontinued. Trend creatinine. #Hypernatremia: resolved. #Hypokalemia: Potassium is 3.2 today. Replace and trend. #Fluid overload: Bilateral lower extremity edema has improved significantly. DC Lasix due to upward trending creatinine. #Anemia: * Hemoglobin today 7.4. Will monitor. * * #Type 2 diabetes mellitus * on metformin. ISS. Accuchecks ACHS * Osteoarthritis of the left knee * s/p left total knee replacement * PT/OT on board. Fall precautions. * #Hyperlipidemia: on statin. DVT prophylaxis: heparin Disposition: For likely DC to TCU tomorrow. Medications at Discharge Home Medications losartan 100 mg tablet 100 mg PO DAILY bp 06/01/13 metoprolol succinate 100 mg tablet,extended release 24 hr 100 mg PO DAILY bp 06/01/13 metformin 500 mg tablet,extended release 24 hr 500 mg PO DAILY DIABETES 04/25/20 rosuvastatin 5 mg tablet 5 mg PO DAILY CHOLESTEROL 12/16/21 amlodipine 10 mg tablet 10 mg PO DAILY BP 01/07/23 acetaminophen 500 mg tablet 1,000 mg (2 x 500 mg) PO Q6H PRN pain #100 tabs 02/16/23 apixaban 2.5 mg tablet (Eliquis) 2.5 mg PO BID blood thinner #28 tabs 02/16/23 apixaban 5 mg tablet (Eliquis) 2.5 mg (1/2 x 5 mg) PO BID blood thinner #0 tabs 02/18/23 sennosides 8.6 mg-docusate sodium 50 mg tablet (Stool Softener-Stimulant Laxative) 2 tab PO BID bowels #0 tabs 02/18/23 oxycodone 5 mg tablet 5 mg PO Q6H PRN PRN Pain Score 6-10 3 days #12 tabs 03/05/23 Hospital Course Operations - (Exploratory laparotomy with small bowel resection) Procedures None Summary of Care Provided Minutes Spent on Discharge: 65 Hospital Course: Patient is an 78-year-old male with a past medical history as outlined was admitted through the ED on 02/19/2023 with a complaint of nausea and vomiting and abdominal pain as well as abdominal distention. He had been in the TCU for rehab when he developed the symptoms. He had been admitted there after he had total left knee replacement. Patient had a history of anal cancer as well and h ad a colostomy bag. CT of the abdomen and pelvis done showed the distal early small bowel obstruction. General surgery was consulted and he had an NG tube placed. He was admitted and managed for small bowel obstruction. Patient eventually required surgery and had exploratory laparotomy with small bowel resection. NG tube was subsequently removed and he was eventually restarted on a diet. He had a protracted and prolonged hospital course complicated by patient requiring peripheral parenteral nutrition. He was eventually resumed on a diet and his PPN was discontinued. He also had some fluid overload and was given Lasix. However subsequently his creatinine trended upwards to a peak of 2.3. This was thought to be due to the Lasix and Lasix was discontinued. He had a torn right big toenail and podiatry was consulted and he had bedside debridement done by podiatry. Urine cultures grew Citrobacter melanotic because which was sensitive to Bactrim and so he was placed on Bactrim and completed a course of it. Creatinine as mentioned trended up to a peak of three 2.3. Patient was however stable and making urine. Decision therefore made to discharge patient to the transitional care unit. He is to have follow-up BMP there to assess kidney function within the next 2 to 3 days. General surgery to follow patient up in the TCU for sammi to be removed on 03/07/2023. Patient seen and examined prior to discharge. He felt well and had no complaints. He had an uneventful night. Review of systems otherwise negative. Labs and vitals reviewed. Home medication reviewed and reconciled. Physical Exam Const alert, oriented x3, no apparent distress and average body habitus General Appearance: cooperative, well kempt and well developed Orientation / Consciousness: awake, oriented to person, oriented to place and oriented to time HEENT normocephalic, head/scalp atraumatic, hearing grossly normal bilaterally, moist oral mucous membranes and oropharynx normal Mouth: oral and palatal mucosa normal Eyes PERRL, EOMs intact bilaterally and conjunctivae normal Neck no lymphadenopathy, supple, no JVD, thyroid normal and no carotid bruits General: trachea midline Lymph Lymphatic: no lymphadenopathy noted and no lymphedema noted Resp normal respiratory effort, normal air movement, no retractions, no use of accessory muscles and clear to auscultation bilaterally Auscultation: Negative for rales, rhonchi or wheezes Cardio regular rate, regular rhythm, S1 normal heart sound, S2 normal heart sound, no murmurs, no rub and no gallops GI normal to inspection, nondistended, normoactive bowel sounds, soft to palpation, non-tender and non-distended GI Narrative: abdomen nontender, non distended, no organomegaly. Colostomy bag has iquid stool. Normal bowel sounds. Intact sutures over abdomen at laparotomy site Auscultation: hypoactive bowel sounds Palpation: tender other (Diffuse abdominal discomfort to palpation) Extremity normal to inspection, normal capillary refill, no clubbing, cyanosis or edema and no calf tenderness Extremity Narrative: There is a surgical incision over the patient's left knee, this area is clean and dry and there is no discharge from the area. Sutures removed from patient's left knee General Extremity: edema bilateral (bilateral lower extremity edema) lower extremity Details: moderate Skin no rashes or lesions noted Skin Narrative: r General Skin Exam: no breakdown Neuro oriented x3, CN's II-XII intact bilaterally, moves all extremities, no focal motor deficits, no sensory deficits noted and deep tendon reflexes 2+ bilaterally Sensorium / Orientation: awake and alert Speech: speech normal Motor Exam: strength 5/5 throughout and general weakness Psych thought process normal, cooperative and affect normal Appearance: appropriate Weight / BMI Weight Weight: 212 lb 8.41 oz Body Mass Index (BMI) 30.4 ABG / Lab / Microbiology Data 03/05/23 07:11 03/05/23 07:11 Laboratory: Laboratory Results - last 24 hr 03/04/23 16:23: POC Glucose 142 H 03/04/23 21:47: POC Glucose 138 H 03/05/23 06:44: POC Glucose 126 H 03/05/23 07:11: WBC 5.6, RBC 2.78 L, Hgb 7.3 L, Hct 23.8 L, MCV 85.6, MCH 26.3 L , MCHC 30.7 L D, RDW Std Deviation 51.3 H, RDW Coeff of [place] 16.5 H, Plt Count 191, MPV 11.5, Immature Gran % (Auto) 1.600 H, Neut % (Auto) 70.1 H, Lymph % (Auto) 11.1 L, [place] % (Auto) 12.9 H, Eos % (Auto) 3.9, Baso % (Auto) 0.4, Absolute Neuts (auto) 3.9, Absolute Lymphs (auto) 0.62 L, Nucleated RBC % 0, Sodium 142, Potassium 3.8, Chloride 107, Carbon Dioxide 26.0, Anion Gap 9, BUN 36 H, Creatinine 2.36 H, Estim Creat Clear Calc 25.78, Est GFR (MDRD) Af Amer 34 L, Est GFR (MDRD) Non-Af 28 L, BUN/Creatinine Ratio 15.3, Glucose 143 H, Calcium 8.1 L 03/05/23 11:32: POC Glucose 143 H D/C Instructions Discharge Diet: Low fat / Low cholesterol Discharge Activity: Return to Normal Activity Weight Bearing Status: Weight bearing as tolerated Call your doctor if you observe: Fever of 101 or Higher, Shortness of breath, Dizziness, Swelling in the ankles and Chest pain Meaningful Use Info Meaningful Use Diagnoses (Choose all that apply): None applicable Discharge Plan Admission Admit Date/Time: 02/19/23 12:42 Primary Reason for Your Visit: small bowel obstruction Attending Provider: Neena Medina Primary Care Provider: Rigo Izaguirre Consulting Providers: Jose Michele; Mango Sal; Hamzah Bob; [place] Mir Instructions Patient Instructions: Small Bowel Obstruction Discharge Orders/Prescriptions Prescriptions: New oxycodone 5 mg Tablet 5 mg PO Q6H PRN PRN (Reason: Pain Score 6-10) 3 Days Qty: 12 0RF Continued amlodipine 10 mg tablet 10 mg PO DAILY metoprolol succinate 100 MG tablet 100 mg PO DAILY Patient Comments: BP losartan 100 MG tablet 100 mg PO DAILY Patient Comments: BP metformin 500 MG tablet 500 mg PO DAILY rosuvastatin 5 mg tablet 5 mg PO DAILY acetaminophen 500 mg tablet 1,000 mg PO Q6H PRN Qty: 100 0RF Eliquis 2.5 mg tablet 2.5 mg PO BID Qty: 28 0RF Patient Comments: 2.5MG PO BID Eliquis 5 mg Tablet 2.5 mg PO BID Qty: 0 0RF Patient Comments: 2.5MGPO BID sennosides-docusate sodium [Stool Softener-Stimulant Laxat] 8.6-50 mg Tablet 2 tab PO BID Qty: 0 0RF Discontinued oxycodone 5 mg tablet 5 - 10 mg PO Q4H PRN (Reason: pain) 7 Days Qty: 60 0RF acetaminophen 500 mg Tablet 1,000 mg PO Q8 Qty: 0 0RF oxycodone 5 mg Tablet 5 - 10 mg PO Q4H PRN PRN (Reason: Pain Score 4-10) 2 Days Qty: 10 0RF Referrals / Follow Up: Ry Victor DPM [Med Staff - Active Staff] - Within 2 Weeks (follow up for nail care) Rigo Izaguirre MD [Primary Care Provider] - Within 1 Week Disposition Disposition (needs filled in before D/C Order can be placed): [facility] Charges/Coding Visit Charges Inpatient E&M: 95182 Disch Hosp >30min
== END 2023-03-05 16:12 | disposition skilled nursing facility (03) | DRG 330 ==
LOC: ED 12:43 → MS3 02-21 08:47
PROVIDERS: Anesthesiology; Physician Assistant; Surgery; Admitting Provider Internal Medicine; Emergency Provider Emergency Medicine; PCP Family Medicine; Visit Provider Student in an Organized Health Care Education/Training Program
PROC: 0DN84ZZ Release Small Intestine, Percutaneous Endoscopic Approach (ICD-10-PCS; CPT 49320; principal; 2023-02-21 15:00)
PROC: 0DB80ZZ Excision of Small Intestine, Open Approach (ICD-10-PCS; CPT 49000; principal; 2023-02-25 12:40)
DX: K56.51 Intestinal adhesions [bands], with partial obstruction (principal); E87.0 Hyperosmolality and hypernatremia; E87.21 Acute metabolic acidosis; N17.9 Acute kidney failure, unspecified; N39.0 Urinary tract infection, site not specified; D63.1 Anemia in chronic kidney disease; N13.5 Crossing vessel and stricture of ureter without hydronephrosis; E11.22 Type 2 diabetes mellitus with diabetic chronic kidney disease; N18.32 Chronic kidney disease, stage 3b; Z93.3 Colostomy status; I12.9 Hypertensive chronic kidney disease with stage 1 through stage 4 chronic kidney disease, or unspecified chronic kidney disease; E78.00 Pure hypercholesterolemia, unspecified; E87.6 Hypokalemia; M17.12 Unilateral primary osteoarthritis, left knee; L60.0 Ingrowing nail; L60.3 Nail dystrophy; B96.89 Other specified bacterial agents as the cause of diseases classified elsewhere; G89.29 Other chronic pain; R60.0 Localized edema; Z90.49 Acquired absence of other specified parts of digestive tract; Z79.01 Long term (current) use of anticoagulants; Z79.84 Long term (current) use of oral hypoglycemic drugs; Z79.891 Long term (current) use of opiate analgesic; Z79.899 Other long term (current) drug therapy; Z85.048 Personal history of other malignant neoplasm of rectum, rectosigmoid junction, and anus; Z85.46 Personal history of malignant neoplasm of prostate; Z86.16 Personal history of COVID-19
CPT/HCPCS: 36415; 36569; 73600; 73620; 74018; 74177; 74250; 80048; 80053; 81001; 82248; 82962; 83036; 83735; 84100; 84132; 84478; 85014; 85018; 85025; 85610; 85730; 88307; 93005; 97110; 97116; 97162; 97166; 97530; 97535; 97802; 97803; 99285; J7030; J7040; J7050; J7120; Q9967; A4216; C1760; J1940; J2405

== ENCOUNTER → 2023-02-19 | Outpatient (CLI) | payer MEDICARE, OTHER, SELFPAY ==
--- NOTE | 2023-02-19 07:33 | CT_ITS ---
EXAM: CT ABDOMEN AND PELVIS WITH INTRAVENOUS CONTRAST CLINICAL INDICATION: BILAT URETERAL OBSTRUCTION TECHNIQUE: Helically acquired images were obtained of the abdomen and pelvis with intravenous contrast. This CT exam was performed using one or more of the following dose reduction techniques: automated exposure control, adjustment of the mA and/or kV according to patient size, and/or use of iterative reconstruction technique. CONTRAST: IV 100mL Isovue-370 COMPARISON: No relevant prior studies available. FINDINGS: LOWER THORAX: See below. ABDOMEN: LIVER: Normal. Homogeneous. No focal mass. GALLBLADDER AND BILE DUCTS: Cholecystectomy clips are in place. Distention of the biliary tree without evidence of an obstructing stone or mass. Common bile duct measuring 13 mm in maximum diameter. PANCREAS: Normal. No focal cystic or solid mass. SPLEEN: Normal. Normal size without focal cystic or solid mass. ADRENALS: Normal. No nodules. KIDNEYS AND URETERS: See below. STOMACH AND BOWEL: Multiple dilated loops of small bowel noted with transition to nondistended small bowel within the lower abdomen. Appearance suggestive of small bowel obstruction. Left-sided colostomy in place with surgical resection of the distal colon and rectum. PELVIS: APPENDIX: No evidence of acute appendicitis. BLADDER: Guthrie catheter in place within decompressed thick-walled urinary bladder. REPRODUCTIVE: Prostate gland is not significantly enlarged. ABDOMEN and PELVIS: INTRAPERITONEAL SPACE: Normal. No ascites or other fluid collection. No free air. BONES/JOINTS: No suspicious lytic or blastic abnormality. SOFT TISSUES: Normal. No discrete abdominal or pelvic wall hernia. VASCULATURE: Normal. Abdominal aorta is non-dilated. LYMPH NODES: Normal. No enlarged lymph nodes. TUBES, LINES AND DEVICES: Bilateral double-J ureteral stent catheters are in place. Right renal collecting system is decompressed. There is moderate diffuse left hydronephrosis and hydroureter. There is diffuse cortical thinning of the left kidney which may be due to chronic obstructive changes. Focal areas of cortical scarring within the right kidney. No evidence of ureteral stone. 5.6 cm right renal cyst. CT/Abdomen/Pelvis W IV Cont ONLY IMPRESSION: 1. Partial molar early distal small bowel obstruction. 2. Surgical changes of distal colectomy and proctectomy. 3. Distended biliary tree without evidence of an obstructing stone or mass. 4. Double-J ureteral stent catheters in place with residual distention of the left renal collecting system. Electronically Signed: Amol Whitley MD at 11:01 EDT ,
== END | disposition home or self-care (01) ==
LOC: CT 07:15
PROVIDERS: PCP Family Medicine; Visit Provider Family Medicine Geriatric Medicine
DX: N13.5 Crossing vessel and stricture of ureter without hydronephrosis (principal)
CPT/HCPCS: 74177; Q9967

== ENCOUNTER 2023-03-05 16:26 | Inpatient (IN) | payer MEDICARE, OTHER, SELFPAY ==
[2023-03-05 16:42] VITALS: BP 162/64; PULSE 78; RESP 14; RESP 16; TEMP 36.3; O2SAT 91; O2SAT 95; BMI 29.2
[2023-03-05 16:44] VITALS: BMI 29.2
--- NOTE | 2023-03-05 18:33 | HP.PCM_ITS ---
HPI - General General Date of Admission: 03/05/23 Date of Service: 03/07/23 Chief Complaint: Here for rehabilitation. HPI Narrative VILMA SAM, is a 78 Male who presents with followin02/19/2023 [facility] Emergency Department, TCU resident status post left TKA with small bowel obstruction. Nausea/vomiting, decreased output from colostomy, dry heaving. Hemoglobin 11.9, Creatinine 1.49. CT abdomen/pelvis showed small bowel obstruction, NG tube placed per Dr. Michele. 02/19/2023 Admit to Hospital. NG tube, General Surgery for small bowel obstruction. IV Vasotec, IV Metoprolol, IV Hydralazine PRN high blood pressure. 02/20/2023 NG tube, blood pressure elevated. 02/21/2023 Small bowel follow through consistent with obstruction. Dr. Michele recommended surgery. 02/21/2023 Dr. Michele performed exploratory laparoscopy with lysis of adhesions. 02/21/2023 PT/OT for debility. 02/22/2023 NG removed, positive bowel sounds, sips and chips diet. PO blood pressure medications. PT/OT for TCU. 02/23/2023 Lot of bowel output, bloated, no hungry. No appetite. Clear liquid diet, decrease IV fluid rate. 02/23/2023 Abdominal pain improved, but tender, positive flatus. 02/24/2023 Vomiting overnight, NG tube replaced. TCU on discharge. NPO currently. 02/25/2023 Dr. Michele performed exploratory laparoscopy with resection of small bowel. 02/26/2023 Feels okay. Consider TPN. Metoprolol IV, Hydralazine IV for elevated blood pressure. Replace potassium. Change LR to 1/2 Normal Saline. 02/27/2023 NG tube clamped, minimal output to ostomy. Start PPN. Stop Enalapril due to elevated creatinine. Add Clonidine patch, Furosemide for elevated blood pressure. 02/28/2023 Podiatry for ripped right big toenail, hangnail debrided. Gas from colostomy. On PPN, Clear liquid diet. Resume oral blood pressure medications. 03/01/2023 Liquid bowel movement overnight. Remove NG tube, hold anticoagulation. 03/02/2023 Bilateral lower extremity swelling, Discontinue PPN, Advance diet. PO Hydralazine, Losartan, Metoprolol, clonidine patch, IV Metoprolol PRN, IV Enalapril PRN high blood pressure. Lasix 40mg IV x 1 dose for fluid overload. Replace potassium 2.9. 03/03/2023 Hemoglobin 7.1, Hold transfusion. Replace potassium 3.0. 03/04/2023 Creatinine 2.17, secondary to Lasix, Trend BMP. Replace potassium 3.2. Hemoglobin 7.4. Right foot pain, X-ray shows arthritis. 03/05/2023 Admit to TCU with debility, here for rehabilitation, strengtheing, prior to discharge home with . [facility] Medical History Bladder infection Cancer Chronic pain COVID Diabetes Gout High cholesterol History of anal cancer History of Clostridium difficile infection HTN (hypertension) Indwelling urethral catheter present Non-smoker Torn meniscus Home Medications losartan 100 mg tablet 100 mg PO DAILY bp 06/01/13 [History Last Taken 03/05/23] metoprolol succinate 100 mg tablet,extended release 24 hr 100 mg PO DAILY bp 06/01/13 [History Last Taken 03/05/23] metformin 500 mg tablet,extended release 24 hr 500 mg PO DAILY DIABETES 04/25/20 [History Last Taken 03/05/23] rosuvastatin 5 mg tablet 5 mg PO DAILY CHOLESTEROL 12/16/21 [History Last Taken 03/04/23] amlodipine 10 mg tablet 10 mg PO DAILY BP 01/07/23 [History Last Taken 03/05/23] acetaminophen 500 mg tablet 1,000 mg (2 x 500 mg) PO Q6H PRN pain #100 tabs 02/16/23 [Rx Last Taken Unknown] apixaban 2.5 mg tablet (Eliquis) 2.5 mg PO BID blood thinner #28 tabs 02/16/23 [Rx Last Taken 03/05/23] apixaban 5 mg tablet (Eliquis) 2.5 mg (1/2 x 5 mg) PO BID blood thinner #0 tabs 02/18/23 [Rx Last Taken 02/18/23] sennosides 8.6 mg-docusate sodium 50 mg tablet (Stool Softener-Stimulant Laxative) 2 tab PO BID bowels #0 tabs 02/18/23 [Rx Last Taken Unknown] oxycodone 5 mg tablet 5 mg PO Q6H PRN PRN Pain Score 6-10 3 days #12 tabs 03/05/23 [Rx Last Taken 03/05/23] Allergy/AdvReac Type Severity Reaction Status Date / Time hydromorphone [From Dilaudid] AdvReac Other Verified 02/15/23 10:18 meperidine [From Demerol] AdvReac Nausea/Vom/ Verified 02/15/23 10:18 Diarrhea Surgical History History of appendectomy History of back surgery History of cholecystectomy History of removal of Port-a-Cath History of total left knee replacement Hx of cataract surgery Hx of colonoscopy Hx of cystoscopy Hx of cystoscopy Hx of cystoscopy Hx of cystoscopy (~01/23/20) Hx of cystoscopy (~05/28/20) Hx of cystoscopy Hx of cystoscopy Hx of cystoscopy Hx of dilation of urethra Hx of left knee surgery Social History household members: spouse Smoking Status: Never smoker alcohol intake: never substance use type: does not use ROS Constitutional Constitutional: Denies chills, fever(s) or weight gain ENT HEENT: Reports loss taste/smell; Denies headache(s), nasal congestion or nasal discharge Cardiovascular Cardiovascular: Denies chest pain or palpitations Respiratory/Chest Respiratory/Chest: Denies cough, excessive phlegm production or shortness of breath with exertion Gastrointestinal Gastrointestinal: Denies abdominal pain, nausea or vomiting Genitourinary Genitourinary: Denies dysuria Musculoskeletal Musculoskeletal: Denies joint pain or joint swelling Integumentary Integumentary: Denies rash or wounds Neurologic Neurologic: Denies focal weakness, numbness or tingling Psychiatric Psychiatric: Denies anxiety, auditory hallucinations, depression, homicidal ideation or suicidal ideation Vital Signs Vital Signs Vital Signs: 03/05/23 16:42 03/05/23 16:42 Temperature 97.3 F L Temperature Source Temporal Pulse Rate 78 78 Pulse Rhythm Regular Pulse Strength Normal (2+) Respiratory Rate 16 14 Respiratory Effort Normal Non-Labored Respiratory Depth Normal Respiratory Pattern Normal Blood Pressure 162/64 H Blood Pressure Mean 96 Blood Pressure Source Monitor Blood Pressure Position Supine Blood Pressure Location Right Arm Pulse Ox 91 95 Oxygen Delivery Method Room Air Room Air Weight Weight: 92.6 kg Body Mass Index (BMI) 29.2 Physical Exam Const alert General Appearance: cooperative HEENT normocephalic Eyes PERRL and EOMs intact bilaterally Neck supple, no JVD and no carotid bruits Resp normal respiratory effort, normal air movement and clear to auscultation bilaterally Cardio regular rate and regular rhythm GI normal to inspection, nondistended, normoactive bowel sounds, non-tender and non-distended GI Narrative: Midline incision sammi intact. Colostomy. Bladder / Kidney Exam: catheter in place urethral Extremity normal capillary refill General Extremity: Negative for edema Skin no rashes or lesions noted General Skin Exam: no breakdown Psych affect normal Appearance: appropriate Results Lab / Micro Data 03/07/23 05:24 03/07/23 05:24 Assessment & Plan Assessment/Plan (1) Debility: (2) Small bowel obstruction: (3) Status post small bowel resection: (4) Hypertensive urgency: (5) Hypokalemia: (6) Acute kidney injury: (7) Status post total left knee replacement: (8) Diabetes: (9) Postoperative anemia: (10) HTN (hypertension): QUALIFIERS: Hypertension type: primary hypertension Qualified Code(s): I10 - Essential (primary) hypertension (11) Hyperlipidemia: (12) History of prostate cancer: (13) Indwelling Guthrie catheter present: (14) Colostomy present: PLAN: Plan 78 year old male with below past medical history significant for recent left total knee arthroplasty hospitalized for small bowel obstruction, underwent small bowel resection 02/25/[address] Michele, complicated by postoperative anemia, hypokalemia, acute kidney injury, elevated blood pressure, admitted to TCU with debility, here for rehabilitation, strengthening, prior to discharge home with . * Debility - PT/OT. * Pain - Tylenol 1000mg q6 prn pain (1-5), Oxycodone 5mg q4h prn pain (6-10). * Bowel - senna/colace 2 tablets bid, Magnesium citrate 300ml daily prn. * Adult immunization - Administer pneumonia vaccine, covid19 vaccine, flu vaccine as appropriate. * DVT prophylaxis - Lovenox 30mg sc daily. * Hypertension - Metoprolol succinate 100mg daily, Losartan 100mg daily, Amlodipine 10mg daily. * Hyperlipidemia - Atorvastatin 10mg qhs. * Skin irritation - Bacitracin ointment topical daily. * Nutrition - Ensure Plus 120ml 4x/day. * Diabetes Mellitus II - Metformin XR 500mg daily. * Acute kidney injury - Creatinine 2.36, trend bmp.
[2023-03-05] MEDS: Atorvastatin Calcium 10 MG Tablet PO (21:51)
[2023-03-05] MEDS: Ensure Plus High Protein 120 ML LIQUID PO (21:51)
[2023-03-05] MEDS: Senna/Docusate Sodium 1 Tablet 2 TABLET PO (21:52)
[2023-03-06 05:54] LABS: Absolute Lymphocyte Count 0.48 X10^3/uL (0.83-4.51); Absolute Neutrophil Count 3.8 X10^3/uL (2.0-7.7); Basophil# 0.02 X10^3/uL; Basophil% 0.4 % (0-1); Eosinophil# 0.14 X10^3/uL; Eosinophils% 2.7 % (0-5); Hematocrit 26.2 % (40-54); Lymphocyte # 0.48 X10^3/ul (0.83-4.51); Lymphocyte % 9.2 % (19-41); Mean Corp Hgb Conc 30.5 g/dL (32-36); Mean Corpuscular Hgb 26.1 pg (27.0-32.0); Mean Corpuscular Volume 85.6 fL (80-94); Mean Platelet Vol. 11.6 fl (6.2-12.0); Monocyte# 0.65 X10^3/uL; Monocyte% 12.5 % (0-10); NRBC Flagged by Analyzer 0 % (0-5); Neutrophil # 3.83 X10^3/uL (2.7-7.7); Neutrophil % 73.7 % (47-70); POSITIVE DIFFERENTIAL YES; Platelet Count 233 K/mm3 (150-450); RBC Distribution Width CV 16.5 % (11.6-14.6); RBC Distribution Width SD 51.1 fl (35.1-43.9); Red Blood Count 3.06 M/mm3 (4.6-6.2); White Blood Count 5.2 K/mm3 (4.4-11.0)
[2023-03-06] MEDS: Enoxaparin 30 MG/0.3 ML Syringe SC (05:57)
[2023-03-06 06:00] VITALS: BMI 29.6
[2023-03-06 06:02] LABS: Differential Indicated SCAN CRITERIA MET
[2023-03-06 06:12] LABS: Anion Gap 7 (5-15); BUN 33 mg/dL (7-18); BUN/Creat Ratio 15.6 RATIO (10-20); Calcium,Total 8.3 mg/dL (8.5-10.1); Chloride 109 mmol/L (98-107); Creatinine, Serum 2.11 mg/dL (0.70-1.30); EST Glomerular Filtration Rate 32 mL/min (>60); Est Glom Filt Rate - Afr Amer 39 mL/min (>60); Estimated Creatinine Clearance 28.83 ml/min; Glucose 165 mg/dL (74-106); Potassium 3.9 mmol/L (3.5-5.1); Sodium Level 141 mmol/L (136-145)
[2023-03-06 06:21] LABS: Differential Comment SCANNED
[2023-03-06 06:23] LABS: Bedside Glucose 161 mg/dL (74-106)
[2023-03-06 08:27] VITALS: PULSE 88
[2023-03-06] MEDS: Losartan Potassium 100 MG Tablet PO (08:27)
[2023-03-06] MEDS: amLODIPine 10 MG Tablet PO (08:27)
[2023-03-06] MEDS: Metoprolol(XL)Succ 100 MG Tablet PO (08:27)
[2023-03-06] MEDS: metFORMIN (XR) 500 MG Tablet PO (08:28)
[2023-03-06] MEDS: Senna/Docusate Sodium 1 Tablet 2 TABLET PO ×2 (08:28→21:39)
[2023-03-06] MEDS: BACITRACIN 15 GM Tube 1 APPLIC TOPICAL (08:28)
[2023-03-06] MEDS: Tuberculin,Purif.prot.deriv. 50 TU/ML Vial 0.1 ML ID (08:47)
[2023-03-06 10:00] VITALS: PULSE 78; RESP 12; O2SAT 94
[2023-03-06] MEDS: Ensure Plus High Protein 120 ML LIQUID PO ×2 (11:50→21:39)
[2023-03-06] MEDS: Iron Polysaccharide Complex 150 MG CAPSULE PO (11:51)
[2023-03-06 16:00] VITALS: BP 132/56; PULSE 76; RESP 14; TEMP 36.8; O2SAT 96
[2023-03-06] MEDS: Atorvastatin Calcium 10 MG Tablet PO (21:39)
--- NOTE | 2023-03-06 21:45 | NURSING ---
Spoke w/ Dr. Carpenter via phone to update staff reports stool passed in colostomy is hard and pt verbalizes some abdominal discomfort. Currently taking Senna-S 2 tablets po BID. New order received and read back to add Miralax 17 gm po daily. Spoke w/ pt to update on new order as option w/ border measurer to start Miralax tonight or tomorrow. Pt elects to start Miralax tomorrow.
[2023-03-07] MEDS: Ensure Plus High Protein 120 ML LIQUID PO ×2 (05:30→21:24)
[2023-03-07] MEDS: Enoxaparin 30 MG/0.3 ML Syringe SC (05:30)
[2023-03-07 06:00] VITALS: BMI 29.6
[2023-03-07 06:19] LABS: Hematocrit 24.8 % (40-54); Hemoglobin 7.7 g/dL (13.0-16.5)
[2023-03-07 06:47] LABS: Bedside Glucose 144 mg/dL (74-106)
[2023-03-07 06:58] LABS: Anion Gap 6 (5-15); BUN 32 mg/dL (7-18); BUN/Creat Ratio 17.2 RATIO (10-20); Calcium,Total 8.4 mg/dL (8.5-10.1); Chloride 110 mmol/L (98-107); Creatinine, Serum 1.86 mg/dL (0.70-1.30); EST Glomerular Filtration Rate 37 mL/min (>60); Est Glom Filt Rate - Afr Amer 45 mL/min (>60); Estimated Creatinine Clearance 32.71 ml/min; Glucose 141 mg/dL (74-106); Sodium Level 140 mmol/L (136-145)
[2023-03-07] MEDS: BACITRACIN 15 GM Tube 1 APPLIC TOPICAL (08:53)
[2023-03-07 08:55] VITALS: PULSE 88
[2023-03-07] MEDS: Losartan Potassium 100 MG Tablet PO (08:55)
[2023-03-07] MEDS: Metoprolol(XL)Succ 100 MG Tablet PO (08:55)
[2023-03-07] MEDS: Iron Polysaccharide Complex 150 MG CAPSULE PO (08:55)
[2023-03-07] MEDS: amLODIPine 10 MG Tablet PO (08:55)
[2023-03-07] MEDS: Senna/Docusate Sodium 1 Tablet 2 TABLET PO ×2 (08:55→21:24)
[2023-03-07] MEDS: metFORMIN (XR) 500 MG Tablet PO (08:56)
[2023-03-07] MEDS: Polyethylene Glycol 3350 17 GM PACKET PO (08:56)
--- NOTE | 2023-03-07 10:54 | CASEMGMT ---
Social Work Patient is a readmit to TCU. No changes to assessment. Educated to Medicare benefit - admitted on day . Confirmed code status is full code. Pt's goal is to return home with . SW will continue to follow for DC planning. Chula Lu, RON HAMMERW
--- NOTE | 2023-03-07 12:59 | NURSING ---
Outreach Director Note; Activity Asset: Complete Young is independent in his choice of daily activities. Young will watch tv, read the newspaper and visit with family and friends. He did state he welcomes visit from the periodontist when available. Staff will continue to remind him of daily activities and respect his right to say no.
[2023-03-07 13:09] VITALS: BP 164/67; PULSE 79; RESP 16; TEMP 36.4; O2SAT 96
[2023-03-07 14:23] VITALS: PULSE 76; RESP 14; O2SAT 95
--- NOTE | 2023-03-07 16:23 | PCM.PN.DRR ---
Documented by User: Nilo Salas 03/07/23 16:52 TCU RX Drug Regimen Review Subjective/Objective Subjective/Objective: Subjective: 78 year old male with below past medical history significant for recent left total knee arthroplasty hospitalized for small bowel obstruction, underwent small bowel resection 02/25/[address] Michele, complicated by postoperative anemia, hypokalemia, acute kidney injury, elevated blood pressure, admitted to TCU with debility, here for rehabilitation, strengthening, prior to discharge home with . Objective: Allergies hydromorphone [From Dilaudid] Adverse Reaction (Verified 02/15/23 10:18) Other tremors PostOp/ not certain if from Dilaudid meperidine [From Demerol] Adverse Reaction (Verified 02/15/23 10:18) Nausea/Vom/Diarrhea Current Medications Generic Name Dose Route Start Last Admin Trade Name Freq PRN Reason Stop Dose Admin Acetaminophen 1,000 mg 03/05/23 19:05 Acetaminophen 500 Mg Tablet PO Q6H PRN PRN Pain Score 1-5 Amlodipine Besylate 10 mg 03/06/23 10:00 03/07/23 08:55 Amlodipine 10 Mg Tablet PO 10 mg DAILY TEE Administration Protocol Atorvastatin Calcium 10 mg 03/05/23 22:00 03/06/23 21:39 Atorvastatin Calcium 10 Mg Tablet PO 10 mg QHS TEE Administration Bacitracin 1 applic 03/06/23 10:00 03/07/23 08:53 Bacitracin 15 Gm Tube TOPICAL 1 applic DAILY TEE Administration Protocol Calamine/Phenol 1 applic 03/07/23 10:25 Menthol/Lanolin/Calamine/Znox 113 Gm Tube TOPICAL BID TEE Protocol Enoxaparin Sodium 30 mg 03/06/23 06:00 03/07/23 05:30 Enoxaparin 30 Mg/0.3 Ml Syringe SC 30 mg DAILY@0600 TEE Administration Losartan Potassium 100 mg 03/06/23 10:00 03/07/23 08:55 Losartan Potassium 100 Mg Tablet PO 100 mg DAILY TEE Administration Protocol Magnesium Citrate 300 ml 03/05/23 19:04 Magnesium Citrate 300 Ml PO DAILY PRN PRN Constipation Metformin HCl 500 mg 03/06/23 08:00 03/07/23 08:56 Metformin (Xr) 500 Mg Tablet PO 500 mg DAILYCM TEE Administration Metoprolol Succinate 100 mg 03/06/23 10:00 03/07/23 08:55 Metoprolol(Xl)Succ 100 Mg Tablet PO 100 mg DAILY TEE Administration Protocol Miconazole Nitrate 1 applic 03/07/23 10:30 Miconazole Nitrate 43 Gm Bottle TOPICAL BID [facility] Protocol Nutritional Formula (Lactose Free) 120 ml 03/05/23 17:00 03/07/23 05:30 Ensure Plus High Protein 120 Ml Liquid PO 120 ml 4X/DAY TEE Administration Oxycodone HCl 5 mg 03/05/23 19:05 Oxycodone 5 Mg Tablet PO Q4H PRN PRN Pain Score 6-10 Polyethylene Glycol 17 gm 03/07/23 10:00 03/07/23 08:56 Polyethylene Glycol 3350 17 Gm Packet PO 17 gm DAILY TEE Administration Polysaccharide Iron Complex 150 mg 03/06/23 10:00 03/07/23 08:55 Iron Polysaccharide Complex 150 Mg Capsule PO 150 mg DAILY TEE Administration Senna/Docusate Sodium 2 tablet 03/05/23 22:00 03/07/23 08:55 Senna/Docusate Sodium 1 Tablet PO 2 tablet BID TEE Administration Tuberculin PPD 0.1 ml 03/13/23 10:00 Tuberculin,Purif.Prot.Deriv. 50 Tu/Ml Vial ID 03/13/23 10:01 X1 ONE Problem List (Updated 03/05/23 @ 18:[address] Tong Carpenter MD) Colostomy present (Acute) Indwelling Guthrie catheter present (Acute) Postoperative anemia (Acute) Acute kidney injury (Acute) Hypertensive urgency (Acute) Status post small bowel resection (Acute) Small bowel obstruction (Acute) Hypokalemia (Acute) History of prostate cancer (Acute) Hyperlipidemia (Acute) HTN (hypertension) (Chronic) Diabetes (Acute) Status post total left knee replacement (Acute) Debility (Acute) Vital Signs Temp Pulse Resp BP Pulse Ox O2 Del Method 97.6 F L 76 14 164/67 H 95 Room Air 03/07/23 13:09 03/07/23 14:23 03/07/23 14:23 03/07/23 13:09 03/07/23 14:23 03/07/23 14:23 Oxygen Delivery Method Room Air Weight: 93.667 kg Body Mass Index (BMI) 29.6 Sodium 140 mmol/L (136-145) 03/07/23 05:24 Potassium 4.0 mmol/L (3.5-5.1) 03/07/23 05:24 Chloride 110 mmol/L (98-107) H 03/07/23 05:24 Carbon Dioxide 24.0 mmol/L (21.0-32.0) 03/07/23 05:24 Anion Gap 6 (5-15) 03/07/23 05:24 BUN 32 mg/dL (7-18) H 03/07/23 05:24 Creatinine 1.86 mg/dL (0.70-1.30) H 03/07/23 05:24 Est GFR (MDRD) Af Amer 45 mL/min (>60) L 03/07/23 05:24 Est GFR (MDRD) Non-Af 37 mL/min (>60) L 03/07/23 05:24 BUN/Creatinine Ratio 17.2 RATIO (10-20) 03/07/23 05:24 Glucose 141 mg/dL (74-106) H 03/07/23 05:24 Assessment/Plan: 1. Pain: acetaminophen 1000 mg PO Q6H PRN pain (1-5), oxycodone 5 mg PO Q4H PRN pain (6-10). The patient has not used any PRN doses of pain medications so far this admission. Please continue to monitor pain levels, PRN medication usage, LFTs (AST/ALT = 23/47 U/L on 03/02/23), for dizziness/drowsiness, for syncope/ataxia/falls, for constipation, and for respiratory depressions. 2. Bowel: senna/docusate 2 tablets PO BID, polyethylene glycol 17 grams PO daily. magnesium citrate 300 mL PO daily PRN constipation. The patient has not required any PRN doses of magnesium citrate so far this admission, and his las bowel movement was on 03/04/23. Please continue to monitor for bowel movements, for PRN medication usage, for constipation and for diarrhea. Please consider administering magnesium citrate as the patient has not had a bowel movement in 3 days. 3. DVT prophylaxis: enoxaparin 30 mg SQ daily. Please continue to monitor for s/s of a DVT such as lower extremity erythema/swelling/pain, for s/s of bleeding or excessive bruising, renal function (serum creatinine 1.86 mg/dL with creatinine clearance ~33 mL/min on 03/07/23), hemoglobin levels (Hgb = 7.7 g/dL on 03/07/23), and platelet count (PLT = 233 K/mm3 on 03/06/23). Because the patient's renal function has improved will increase enoxaparin dose to 40 mg SC daily. 4. Hypertension: amlodipine 10 mg PO daily, losartan 100 mg PO daily, metoprolol succinate 100 mg PO daily. Please continue to monitor blood pressures (recent range = 129-164/55-67 mmHg), heart rates (recent range = 73-88 beats/min), for fatigue, for lower extremity edema, renal function (serum creatinine 1.86 mg/dL with creatinine clearance ~33 mL/min on 03/07/23), potassium levels (K = 4.0 mmol/L on 03/07/23), and sodium levels (Na = 140 mmol/L on 03/07/23). The patient continues to have high blood pressures despite being on 3 blood pressure agents at large doses. Please consider changing metoprolol succinate 100 mg PO daily to carvedilol 12.5 mg PO BID with additional titration to 25 mg PO BID if needed for further blood pressure control as patient may benefit from the additional blood pressure lowering effect from carvedilol vs. metoprolol succinate. 5. Hyperlipidemia: atorvastatin 10 mg PO QHS. Please continue to monitor lipid levels (cholesterol = 215 mg/dL with LDL = 106 mg/dL on 09/30/22), for myopathies, and LFTs (AST/ALT = 23/47 U/L on 03/02/23). 6. Diabetes Mellitus II: metformin XR 500 mg PO daily. Please continue to monitor blood glucose (recent range = 126-161 mg/dL), hemoglobin A1C (A1C = 6.3% on 02/21/23), for GI distress, renal function (GFR = 37 mL/min on 03/07/23), and vitamin B-12 levels (no recent vitamin B-12 level). Please consider ordering a vitamin B-12 level to assess for deficiency as the patient is on metformin therapy. 7. Iron deficiency anemia: iron polysaccharide 150 mg PO daily. Please continue to monitor iron levels (no recent iron levels), hemoglobin levels (Hgb = 7.7 g/dL on 03/07/23), for constipation and discolored stools. Please consider ordering iron studies to assess repletion status. 8. Skin irritation/tinea corporis: bacitracin ointment 1 application topically daily, calmoseptine ointment 1 application topically BID, miconazole nitrate powder 1 application topically BID. Please continue to monitor for resolution of tinea corporis as well as for skin irritation and integrity. 9. General nutrition: ensure plus high protein 120 mL PO 4x daily. Please continue to monitor overall nutritional status. Assessment/Plan for indications treated with psychotropic medications: NA Medical chart and medication regimen reviewed. The following medication irregularities or issues were identified: 1. Hypertension: amlodipine 10 mg PO daily, losartan 100 mg PO daily, metoprolol succinate 100 mg PO daily. The patient continues to have high blood pressures despite being on 3 blood pressure agents at large doses. Please consider changing metoprolol succinate 100 mg PO daily to carvedilol 12.5 mg PO BID with additional titration to 25 mg PO BID if needed for further blood pressure control as patient may benefit from the additional blood pressure lowering effect from carvedilol vs. metoprolol succinate. 2. Diabetes Mellitus II: metformin XR 500 mg PO daily. Please consider ordering a vitamin B-12 level to assess for deficiency as the patient is on metformin therapy. 3. Iron deficiency anemia: iron polysaccharide 150 mg PO daily. Please consider ordering iron studies to assess repletion status. Date Date of Note:: 03/07/23 Documented by User: Dr. Tong Carpenter MD 03/07/23 17:06 TCU RX Drug Regimen Review Provider Comments Provider responsibility Provider Comments to Recommendations by Pharmacy: Agree
[2023-03-07] MEDS: Furosemide 20 MG Tablet PO (18:00)
[2023-03-07] MEDS: Atorvastatin Calcium 10 MG Tablet PO (21:24)
[2023-03-07] MEDS: Menthol/Lanolin/Calamine/Znox 113 GM Tube 1 APPLIC TOPICAL (21:24)
[2023-03-07] MEDS: Miconazole Nitrate 43 GM Bottle 1 APPLIC TOPICAL (21:25)
[2023-03-08 05:29] LABS: Hematocrit 24.4 % (40-54); Hemoglobin 7.6 g/dL (13.0-16.5)
[2023-03-08] MEDS: Ensure Plus High Protein 120 ML LIQUID PO ×4 (05:37→21:28)
[2023-03-08] MEDS: Enoxaparin 40 MG/0.4 ML Syringe SC (05:37)
[2023-03-08 06:00] VITALS: BMI 28.3
[2023-03-08 06:22] LABS: Bedside Glucose 131 mg/dL (74-106)
--- NOTE | 2023-03-08 08:07 | NURSING ---
Addendum entered by Ayde Rico 03/08/23 08:55: Call back from , updated that patient is to receive blood tomorrow morning @0830. Original Note: Updated patient that 2 units blood ordered. Left VM with .
[2023-03-08] MEDS: Losartan Potassium 100 MG Tablet PO (08:37)
[2023-03-08] MEDS: Iron Polysaccharide Complex 150 MG CAPSULE PO (08:37)
[2023-03-08] MEDS: metFORMIN (XR) 500 MG Tablet PO (08:37)
[2023-03-08] MEDS: Polyethylene Glycol 3350 17 GM PACKET PO (08:38)
[2023-03-08] MEDS: Furosemide 20 MG Tablet PO (08:39)
[2023-03-08 08:40] VITALS: BP 170/76; PULSE 83
[2023-03-08] MEDS: Senna/Docusate Sodium 1 Tablet 2 TABLET PO ×2 (08:40→21:29)
[2023-03-08] MEDS: Metoprolol(XL)Succ 100 MG Tablet PO (08:40)
[2023-03-08] MEDS: amLODIPine 10 MG Tablet PO (08:40)
[2023-03-08] MEDS: Miconazole Nitrate 43 GM Bottle 1 APPLIC TOPICAL ×2 (08:43→21:28)
[2023-03-08] MEDS: Menthol/Lanolin/Calamine/Znox 113 GM Tube 1 APPLIC TOPICAL ×2 (08:43→21:28)
[2023-03-08] MEDS: BACITRACIN 15 GM Tube 1 APPLIC TOPICAL (08:45)
[2023-03-08 08:49] VITALS: BP 170/76; PULSE 83
[2023-03-08] MEDS: COVID VAC 23-24(12UP)(ANDU)/PF 50 MCG/0.5 ML SYRINGE IM (11:09)
--- NOTE | 2023-03-08 11:16 | NURSING ---
GAVE PT THE COVID VACCINE SPIKEVAX IN LEFT DELT. PT TOLERATED WELL. WILL CONTINUE TO MONITOR.
[2023-03-08 14:41] VITALS: BMI 28.3
[2023-03-08 14:51] VITALS: BP 151/61; PULSE 86; RESP 16; TEMP 36.4; O2SAT 96
--- NOTE | 2023-03-08 16:56 | NURSING ---
Message sent to Dr Michele in regard to abdominal incision and sammi to be removed today. Dr Michele to come to see patient tomorrow AM d/t concern of middle 3 abdominal sammi appearance. Informed Dr that patient is scheduled for blood tranfusion tomorrow if he is not on floor when Dr does rounds.
[2023-03-08] MEDS: Atorvastatin Calcium 10 MG Tablet PO (21:29)
[2023-03-09] MEDS: Enoxaparin 40 MG/0.4 ML Syringe SC (05:27)
[2023-03-09] MEDS: Ensure Plus High Protein 120 ML LIQUID PO ×3 (05:31→22:07)
[2023-03-09 06:20] LABS: Bedside Glucose 144 mg/dL (74-106)
[2023-03-09 06:22] LABS: Anion Gap 5 (5-15); BUN 24 mg/dL (7-18); BUN/Creat Ratio 14.5 RATIO (10-20); Calcium,Total 8.3 mg/dL (8.5-10.1); Chloride 109 mmol/L (98-107); Creatinine, Serum 1.66 mg/dL (0.70-1.30); EST Glomerular Filtration Rate 43 mL/min (>60); Est Glom Filt Rate - Afr Amer 52 mL/min (>60); Estimated Creatinine Clearance 36.65 ml/min; Glucose 148 mg/dL (74-106); Potassium 3.6 mmol/L (3.5-5.1); Sodium Level 139 mmol/L (136-145)
[2023-03-09] MEDS: metFORMIN (XR) 500 MG Tablet PO (08:00)
[2023-03-09] MEDS: BACITRACIN 15 GM Tube 1 APPLIC TOPICAL (08:00)
[2023-03-09] MEDS: Furosemide 20 MG Tablet PO (08:01)
[2023-03-09] MEDS: Polyethylene Glycol 3350 17 GM PACKET PO (08:01)
[2023-03-09] MEDS: Iron Polysaccharide Complex 150 MG CAPSULE PO (08:01)
[2023-03-09] MEDS: Senna/Docusate Sodium 1 Tablet 2 TABLET PO ×2 (08:01→22:08)
[2023-03-09] MEDS: amLODIPine 10 MG Tablet PO (08:01)
[2023-03-09] MEDS: Losartan Potassium 100 MG Tablet PO (08:01)
[2023-03-09 08:02] VITALS: BP 160/68; PULSE 99
[2023-03-09] MEDS: Metoprolol(XL)Succ 100 MG Tablet PO (08:02)
[2023-03-09] MEDS: Menthol/Lanolin/Calamine/Znox 113 GM Tube 1 APPLIC TOPICAL ×2 (08:06→22:07)
[2023-03-09] MEDS: Miconazole Nitrate 43 GM Bottle 1 APPLIC TOPICAL ×2 (08:06→22:07)
--- NOTE | 2023-03-09 08:42 | NURSING ---
IN TO TAKE PT JACKI OUT. LEFT SURGICAL WOUND OPEN TO AIR BUT PT ASKED FOR A SMALL DRY DRESSING TO MID AREA OF ABDOMINAL. THIS NURSE APPLIED. PT THEN LEFT BY BED AT 0825 TO INFUSION CENTER FOR BLOOD.
--- NOTE | 2023-03-09 14:15 | NURSING ---
Addendum entered by Adeola Prince 03/09/23 14:16: via bed from transfusion center. Original Note: Patient returns to unit (TCU)
[2023-03-09 15:20] VITALS: BP 155/71; PULSE 82; RESP 24; TEMP 36.9; O2SAT 95
--- NOTE | 2023-03-09 15:31 | NURSING ---
Addendum entered by Adeola Prince 03/09/23 16:47: [id number] callback from pt's , gave update on patient. requested phone number for this unit, no other comments/requests/concerns at this time. Original Note: Attempted to call and give family () update, left voicemail.
[2023-03-09 17:10] VITALS: PULSE 83; RESP 18; O2SAT 95
[2023-03-09] MEDS: Atorvastatin Calcium 10 MG Tablet PO (22:08)
[2023-03-10 06:00] VITALS: BMI 27.3
[2023-03-10] MEDS: Ensure Plus High Protein 120 ML LIQUID PO ×4 (06:17→22:05)
[2023-03-10] MEDS: Enoxaparin 40 MG/0.4 ML Syringe SC (06:19)
[2023-03-10 06:20] LABS: Bedside Glucose 157 mg/dL (74-106)
[2023-03-10 06:41] LABS: Anion Gap 9 (5-15); BUN 28 mg/dL (7-18); BUN/Creat Ratio 18.4 RATIO (10-20); Calcium,Total 8.5 mg/dL (8.5-10.1); Chloride 107 mmol/L (98-107); Creatinine, Serum 1.52 mg/dL (0.70-1.30); EST Glomerular Filtration Rate 47 mL/min (>60); Est Glom Filt Rate - Afr Amer 57 mL/min (>60); Estimated Creatinine Clearance 40.02 ml/min; Glucose 135 mg/dL (74-106); Potassium 3.5 mmol/L (3.5-5.1); Sodium Level 141 mmol/L (136-145)
[2023-03-10 08:36] VITALS: BP 166/75; PULSE 85; RESP 18; TEMP 36.3; O2SAT 95
[2023-03-10] MEDS: BACITRACIN 15 GM Tube 1 APPLIC TOPICAL (08:40)
[2023-03-10] MEDS: Menthol/Lanolin/Calamine/Znox 113 GM Tube 1 APPLIC TOPICAL ×2 (08:43→22:10)
[2023-03-10] MEDS: Miconazole Nitrate 43 GM Bottle 1 APPLIC TOPICAL ×2 (08:43→22:10)
[2023-03-10] MEDS: Iron Polysaccharide Complex 150 MG CAPSULE PO (08:44)
[2023-03-10] MEDS: metFORMIN (XR) 500 MG Tablet PO (08:44)
[2023-03-10] MEDS: Losartan Potassium 100 MG Tablet PO (08:44)
[2023-03-10] MEDS: amLODIPine 10 MG Tablet PO (08:45)
[2023-03-10] MEDS: Furosemide 20 MG Tablet PO (08:45)
[2023-03-10] MEDS: Polyethylene Glycol 3350 17 GM PACKET PO (08:45)
[2023-03-10 08:47] VITALS: BP 166/75; PULSE 85
[2023-03-10] MEDS: Senna/Docusate Sodium 1 Tablet 2 TABLET PO ×2 (08:47→22:05)
[2023-03-10] MEDS: Metoprolol(XL)Succ 100 MG Tablet PO (08:47)
[2023-03-10 10:00] VITALS: PULSE 85
--- NOTE | 2023-03-10 14:18 | NURSING ---
Buck wraps removed per patient request. He reported it made his swelling worse. Legs are elevated.
--- NOTE | 2023-03-10 15:17 | NURSING ---
During patient assessment, colostomy bag was leaking. Colostomy bag changed today. Dressing on abdomen incision also changed.
[2023-03-10 15:23] LABS: Hematocrit 34.1 % (40-54); Hemoglobin 10.7 g/dL (13.0-16.5)
[2023-03-10] MEDS: Atorvastatin Calcium 10 MG Tablet PO (22:05)
[2023-03-11] MEDS: Enoxaparin 40 MG/0.4 ML Syringe SC (05:30)
[2023-03-11] MEDS: Ensure Plus High Protein 120 ML LIQUID PO ×4 (05:30→21:43)
[2023-03-11 06:00] VITALS: BMI 27.6
[2023-03-11 06:43] LABS: Bedside Glucose 149 mg/dL (74-106)
[2023-03-11 06:51] LABS: Anion Gap 9 (5-15); BUN 28 mg/dL (7-18); BUN/Creat Ratio 21.9 RATIO (10-20); Calcium,Total 8.6 mg/dL (8.5-10.1); Chloride 108 mmol/L (98-107); Creatinine, Serum 1.28 mg/dL (0.70-1.30); EST Glomerular Filtration Rate 58 mL/min (>60); Est Glom Filt Rate - Afr Amer 70 mL/min (>60); Estimated Creatinine Clearance 47.53 ml/min; Glucose 135 mg/dL (74-106); Potassium 4.1 mmol/L (3.5-5.1); Sodium Level 140 mmol/L (136-145)
[2023-03-11] MEDS: metFORMIN (XR) 500 MG Tablet PO (08:14)
[2023-03-11] MEDS: BACITRACIN 15 GM Tube 1 APPLIC TOPICAL (08:14)
[2023-03-11] MEDS: Menthol/Lanolin/Calamine/Znox 113 GM Tube 1 APPLIC TOPICAL ×2 (08:15→21:46)
[2023-03-11] MEDS: Losartan Potassium 100 MG Tablet PO (08:15)
[2023-03-11] MEDS: Miconazole Nitrate 43 GM Bottle 1 APPLIC TOPICAL ×2 (08:15→21:46)
[2023-03-11] MEDS: Furosemide 20 MG Tablet PO (08:16)
[2023-03-11] MEDS: Iron Polysaccharide Complex 150 MG CAPSULE PO (08:16)
[2023-03-11] MEDS: amLODIPine 10 MG Tablet PO (08:16)
[2023-03-11 08:18] VITALS: BP 178/79; PULSE 83
[2023-03-11] MEDS: Metoprolol(XL)Succ 100 MG Tablet PO (08:18)
[2023-03-11] MEDS: Senna/Docusate Sodium 1 Tablet 2 TABLET PO ×2 (08:18→21:43)
--- NOTE | 2023-03-11 11:26 | CASEMGMT ---
Social Work BIMS () and PHQ-2 () completed for MDS assessment. Chula Lu MSW ACUTE CARE PHYSICIAN
[2023-03-11 12:44] VITALS: BP 146/61; PULSE 82; RESP 14; TEMP 36.6; O2SAT 96
[2023-03-11] MEDS: Acetaminophen 500 MG Tablet 1000 MG PO (16:29)
[2023-03-11] MEDS: Atorvastatin Calcium 10 MG Tablet PO (21:43)
[2023-03-12 04:40] VITALS: BMI 60.7
[2023-03-12] MEDS: Ensure Plus High Protein 120 ML LIQUID PO ×4 (05:29→20:46)
[2023-03-12] MEDS: Enoxaparin 40 MG/0.4 ML Syringe SC (05:29)
[2023-03-12 07:12] LABS: Bedside Glucose 149 mg/dL (74-106)
[2023-03-12 07:31] LABS: Bedside Glucose 161 mg/dL (74-106)
[2023-03-12] MEDS: Losartan Potassium 100 MG Tablet PO (08:31)
[2023-03-12] MEDS: Menthol/Lanolin/Calamine/Znox 113 GM Tube 1 APPLIC TOPICAL ×2 (08:31→20:48)
[2023-03-12] MEDS: Furosemide 20 MG Tablet PO (08:32)
[2023-03-12] MEDS: amLODIPine 10 MG Tablet PO (08:32)
[2023-03-12] MEDS: Senna/Docusate Sodium 1 Tablet 2 TABLET PO ×2 (08:32→20:46)
[2023-03-12] MEDS: Iron Polysaccharide Complex 150 MG CAPSULE PO (08:33)
[2023-03-12] MEDS: metFORMIN (XR) 500 MG Tablet PO (08:33)
[2023-03-12] MEDS: Polyethylene Glycol 3350 17 GM PACKET PO (08:34)
[2023-03-12] MEDS: BACITRACIN 15 GM Tube 1 APPLIC TOPICAL (08:34)
[2023-03-12 08:35] VITALS: BP 152/43; PULSE 89
[2023-03-12] MEDS: Metoprolol(XL)Succ 100 MG Tablet PO (08:35)
[2023-03-12] MEDS: Miconazole Nitrate 43 GM Bottle 1 APPLIC TOPICAL ×2 (08:39→20:48)
[2023-03-12 08:40] VITALS: BP 152/43; PULSE 89; RESP 18; O2SAT 98
[2023-03-12 08:44] VITALS: RESP 18
[2023-03-12 09:01] LABS: Anion Gap 6 (5-15); BUN 32 mg/dL (7-18); BUN/Creat Ratio 23.5 RATIO (10-20); Calcium,Total 9.1 mg/dL (8.5-10.1); Chloride 108 mmol/L (98-107); Creatinine, Serum 1.36 mg/dL (0.70-1.30); EST Glomerular Filtration Rate 54 mL/min (>60); Est Glom Filt Rate - Afr Amer 65 mL/min (>60); Estimated Creatinine Clearance 44.73 ml/min; Glucose 169 mg/dL (74-106); Potassium 3.8 mmol/L (3.5-5.1); Sodium Level 138 mmol/L (136-145)
[2023-03-12 15:16] VITALS: BP 169/77; PULSE 85; RESP 18; TEMP 36.4; O2SAT 97
[2023-03-12 18:04] VITALS: BP 195/90
--- NOTE | 2023-03-12 18:05 | NURSING ---
Addendum entered by Sia Sheehan 03/12/23 18:23: dr carpenter notified, new order hydralazine 25mg TID, start now. recheck BP in one hour. Original Note: Patient's bp trending up throughout day. Manual bp taken: bp-195/90 semi-fowlers, resting. Pt denies pain, discomfort. RN called and notified Dr. Carpenter.
[2023-03-12 18:25] VITALS: BP 195/90; PULSE 85
[2023-03-12] MEDS: hydrALAZINE 25 MG Tablet PO (18:25)
[2023-03-12] MEDS: Atorvastatin Calcium 10 MG Tablet PO (20:46)
[2023-03-13] VITALS (7 sets, daily range): BP systolic 154–173; BP diastolic 75–81; PULSE 79–87; RESP 16–18; TEMP 36.4; O2SAT 97; BMI 27.6
[2023-03-13] MEDS: hydrALAZINE 25 MG Tablet PO ×3 (04:56→20:57)
[2023-03-13] MEDS: Ensure Plus High Protein 120 ML LIQUID PO ×4 (04:56→20:56)
[2023-03-13] MEDS: Enoxaparin 40 MG/0.4 ML Syringe SC (04:56)
[2023-03-13 06:31] LABS: Bedside Glucose 138 mg/dL (74-106)
[2023-03-13 06:48] LABS: Absolute Lymphocyte Count 0.84 X10^3/uL (0.83-4.51); Absolute Neutrophil Count 4.1 X10^3/uL (2.0-7.7); Basophil# 0.02 X10^3/uL; Basophil% 0.4 % (0-1); Eosinophil# 0.16 X10^3/uL; Eosinophils% 2.9 % (0-5); Hematocrit 32.3 % (40-54); Hemoglobin 10.1 g/dL (13.0-16.5); Lymphocyte # 0.84 X10^3/ul (0.83-4.51); Mean Corp Hgb Conc 31.3 g/dL (32-36); Mean Corpuscular Hgb 26.9 pg (27.0-32.0); Mean Corpuscular Volume 86.1 fL (80-94); Mean Platelet Vol. 10.6 fl (6.2-12.0); Monocyte# 0.47 X10^3/uL; Monocyte% 8.4 % (0-10); NRBC Flagged by Analyzer 0 % (0-5); Neutrophil # 4.09 X10^3/uL (2.7-7.7); Neutrophil % 72.8 % (47-70); Platelet Count 259 K/mm3 (150-450); RBC Distribution Width CV 15.4 % (11.6-14.6); RBC Distribution Width SD 48.4 fl (35.1-43.9); Red Blood Count 3.75 M/mm3 (4.6-6.2); White Blood Count 5.6 K/mm3 (4.4-11.0)
[2023-03-13 07:03] LABS: Anion Gap 6 (5-15); BUN 31 mg/dL (7-18); BUN/Creat Ratio 25.2 RATIO (10-20); Calcium,Total 8.6 mg/dL (8.5-10.1); Chloride 109 mmol/L (98-107); Creatinine, Serum 1.23 mg/dL (0.70-1.30); EST Glomerular Filtration Rate 60 mL/min (>60); Est Glom Filt Rate - Afr Amer 73 mL/min (>60); Estimated Creatinine Clearance 49.46 ml/min; Glucose 152 mg/dL (74-106); Potassium 3.7 mmol/L (3.5-5.1); Sodium Level 137 mmol/L (136-145)
[2023-03-13] MEDS: BACITRACIN 15 GM Tube 1 APPLIC TOPICAL (08:12)
[2023-03-13] MEDS: Metoprolol(XL)Succ 100 MG Tablet PO (08:13)
[2023-03-13] MEDS: amLODIPine 10 MG Tablet PO (08:14)
[2023-03-13] MEDS: Furosemide 20 MG Tablet PO (08:14)
[2023-03-13] MEDS: Losartan Potassium 100 MG Tablet PO (08:14)
[2023-03-13] MEDS: metFORMIN (XR) 500 MG Tablet PO (08:14)
[2023-03-13] MEDS: Polyethylene Glycol 3350 17 GM PACKET PO (08:15)
[2023-03-13] MEDS: Senna/Docusate Sodium 1 Tablet 2 TABLET PO ×2 (08:15→20:56)
[2023-03-13] MEDS: Iron Polysaccharide Complex 150 MG CAPSULE PO (08:15)
[2023-03-13] MEDS: Miconazole Nitrate 43 GM Bottle 1 APPLIC TOPICAL ×2 (08:24→20:59)
[2023-03-13] MEDS: Menthol/Lanolin/Calamine/Znox 113 GM Tube 1 APPLIC TOPICAL ×2 (08:26→20:58)
[2023-03-13] MEDS: Tuberculin,Purif.prot.deriv. 50 TU/ML Vial 0.1 ML ID (10:57)
[2023-03-13] MEDS: Acetaminophen 500 MG Tablet 1000 MG PO (11:47)
--- NOTE | 2023-03-13 11:51 | NURSING ---
VITALS CHECKED AND PT STATED HIS LEFT CALF WAS HURTING. ASKED PT WHEN IT STARTED PT STATED TODAY. CALF NOT RED,SWOLLEN OR HOT. GAVE PRN PAIN MED. REPORTED TO RN. WILL CONTINUE TO MONITOR.
--- NOTE | 2023-03-13 15:33 | NURSING ---
dr hollis notified pt c/o LT calf pain from knee to foot. new order for doppler LLE in AM
--- NOTE | 2023-03-13 16:47 | NURSING ---
IN ROOM AND UPDATED ON NEW ORDERS.
[2023-03-13] MEDS: Atorvastatin Calcium 10 MG Tablet PO (20:57)
[2023-03-14] VITALS (7 sets, daily range): BP systolic 142–166; BP diastolic 68–77; PULSE 78–89; RESP 14–16; TEMP 36.3–36.5; O2SAT 95–96; BMI 27.6
[2023-03-14] MEDS: Ensure Plus High Protein 120 ML LIQUID PO ×4 (05:17→20:44)
[2023-03-14] MEDS: hydrALAZINE 25 MG Tablet PO ×3 (05:17→20:43)
[2023-03-14] MEDS: Enoxaparin 40 MG/0.4 ML Syringe SC (05:17)
[2023-03-14 06:46] LABS: Bedside Glucose 152 mg/dL (74-106)
[2023-03-14] MEDS: BACITRACIN 15 GM Tube 1 APPLIC TOPICAL (08:31)
[2023-03-14] MEDS: metFORMIN (XR) 500 MG Tablet PO (08:31)
[2023-03-14] MEDS: Losartan Potassium 100 MG Tablet PO (08:31)
[2023-03-14] MEDS: Iron Polysaccharide Complex 150 MG CAPSULE PO (08:31)
[2023-03-14] MEDS: Metoprolol(XL)Succ 100 MG Tablet PO (08:31)
[2023-03-14] MEDS: Polyethylene Glycol 3350 17 GM PACKET PO (08:32)
[2023-03-14] MEDS: Furosemide 20 MG Tablet PO (08:32)
[2023-03-14] MEDS: amLODIPine 10 MG Tablet PO (08:32)
[2023-03-14] MEDS: Senna/Docusate Sodium 1 Tablet 2 TABLET PO ×2 (08:32→20:43)
[2023-03-14] MEDS: Miconazole Nitrate 43 GM Bottle 1 APPLIC TOPICAL ×2 (08:37→20:46)
[2023-03-14] MEDS: Menthol/Lanolin/Calamine/Znox 113 GM Tube 1 APPLIC TOPICAL ×2 (08:37→20:46)
--- NOTE | 2023-03-14 09:21 | NURSING ---
Auto Radiator Specialist Note; MDS for 03/12/2023 complete
--- NOTE | 2023-03-14 11:29 | CASEMGMT ---
Social Work IDT met with patient and for care plan meeting. Discussed patient's progress in PT/OT/SN. Educated to Medicare benefit and copay coverage. Pt readmitted on day . Pt's goal is to return home with . Offered therapy training and car transfers. scheduled car tx for 03/18. Then pt and to determine after another week of therapy, when pt is ready to DC. SW offered ongoing assistance with DC planning. Chula Lu, DRIVERS' CASH CLERK COLD PRESS OPERATOR
--- NOTE | 2023-03-14 19:39 | NURSING ---
Patient Guthrie catheter replaced. 16 ecuadorean inserted. Patient draining clear yellow drainage. Patient noted to tolerate procedure well. Returned to sitting position and resting w/ call light in hands.
[2023-03-14] MEDS: Atorvastatin Calcium 10 MG Tablet PO (20:44)
[2023-03-15 05:31] VITALS: BP 159/81; PULSE 81
[2023-03-15] MEDS: hydrALAZINE 25 MG Tablet PO ×3 (05:31→20:03)
[2023-03-15] MEDS: Enoxaparin 40 MG/0.4 ML Syringe SC (05:31)
[2023-03-15] MEDS: Ensure Plus High Protein 120 ML LIQUID PO ×4 (05:31→20:03)
[2023-03-15 05:50] LABS: Hematocrit 32.9 % (40-54); Hemoglobin 10.2 g/dL (13.0-16.5)
[2023-03-15 06:00] VITALS: BMI 27.3
[2023-03-15 06:42] LABS: Bedside Glucose 136 mg/dL (74-106)
[2023-03-15 09:23] VITALS: BMI 27.3
[2023-03-15] MEDS: Senna/Docusate Sodium 1 Tablet 2 TABLET PO ×2 (09:28→20:02)
[2023-03-15] MEDS: Polyethylene Glycol 3350 17 GM PACKET PO (09:28)
[2023-03-15] MEDS: metFORMIN (XR) 500 MG Tablet PO (09:28)
[2023-03-15 09:29] VITALS: PULSE 81
[2023-03-15] MEDS: Furosemide 20 MG Tablet PO (09:29)
[2023-03-15] MEDS: Metoprolol(XL)Succ 100 MG Tablet PO (09:29)
[2023-03-15] MEDS: Iron Polysaccharide Complex 150 MG CAPSULE PO (09:29)
[2023-03-15] MEDS: Losartan Potassium 100 MG Tablet PO (09:30)
[2023-03-15] MEDS: amLODIPine 10 MG Tablet PO (09:30)
[2023-03-15] MEDS: BACITRACIN 15 GM Tube 1 APPLIC TOPICAL (09:30)
[2023-03-15] MEDS: Menthol/Lanolin/Calamine/Znox 113 GM Tube 1 APPLIC TOPICAL ×2 (09:42→20:03)
[2023-03-15] MEDS: Miconazole Nitrate 43 GM Bottle 1 APPLIC TOPICAL ×2 (09:42→20:04)
[2023-03-15 13:41] VITALS: BP 172/88; PULSE 81; RESP 18; TEMP 36.2; O2SAT 98
[2023-03-15 14:17] VITALS: PULSE 81
[2023-03-15 20:03] VITALS: BP 165/72; PULSE 79
[2023-03-15] MEDS: Atorvastatin Calcium 10 MG Tablet PO (20:03)
[2023-03-15 20:08] VITALS: O2SAT 95
[2023-03-16] MEDS: Acetaminophen 500 MG Tablet 1000 MG PO (03:17)
[2023-03-16 05:27] VITALS: BP 175/82; PULSE 83
[2023-03-16] MEDS: hydrALAZINE 25 MG Tablet PO ×3 (05:27→20:33)
[2023-03-16] MEDS: Enoxaparin 40 MG/0.4 ML Syringe SC (05:28)
[2023-03-16] MEDS: Ensure Plus High Protein 120 ML LIQUID PO ×4 (05:33→20:36)
[2023-03-16 06:29] LABS: Bedside Glucose 117 mg/dL (74-106)
[2023-03-16 10:20] VITALS: PULSE 98
[2023-03-16] MEDS: Metoprolol(XL)Succ 100 MG Tablet PO (10:20)
[2023-03-16] MEDS: Miconazole Nitrate 43 GM Bottle 1 APPLIC TOPICAL ×2 (10:20→20:36)
[2023-03-16] MEDS: metFORMIN (XR) 500 MG Tablet PO (10:20)
[2023-03-16] MEDS: Menthol/Lanolin/Calamine/Znox 113 GM Tube 1 APPLIC TOPICAL ×2 (10:20→20:36)
[2023-03-16] MEDS: amLODIPine 10 MG Tablet PO (10:21)
[2023-03-16] MEDS: Iron Polysaccharide Complex 150 MG CAPSULE PO (10:21)
[2023-03-16] MEDS: Senna/Docusate Sodium 1 Tablet 2 TABLET PO ×2 (10:21→20:33)
[2023-03-16] MEDS: Losartan Potassium 100 MG Tablet PO (10:22)
[2023-03-16] MEDS: Furosemide 20 MG Tablet PO (10:22)
[2023-03-16] MEDS: Polyethylene Glycol 3350 17 GM PACKET PO (10:22)
[2023-03-16] MEDS: BACITRACIN 15 GM Tube 1 APPLIC TOPICAL (10:22)
[2023-03-16 14:32] VITALS: PULSE 80
[2023-03-16 15:45] VITALS: BP 148/69; PULSE 84; RESP 20; TEMP 36.2; O2SAT 96
[2023-03-16 20:02] VITALS: O2SAT 96
[2023-03-16 20:33] VITALS: BP 162/72; PULSE 78
[2023-03-16] MEDS: Atorvastatin Calcium 10 MG Tablet PO (20:33)
[2023-03-17] VITALS (9 sets, daily range): BP systolic 131–173; BP diastolic 54–76; PULSE 75–87; RESP 14–18; TEMP 36.6; O2SAT 92–94; BMI 26.7
[2023-03-17] MEDS: Acetaminophen 500 MG Tablet 1000 MG PO (01:17)
[2023-03-17] MEDS: Enoxaparin 40 MG/0.4 ML Syringe SC (05:31)
[2023-03-17] MEDS: hydrALAZINE 25 MG Tablet PO ×4 (05:31→20:46)
[2023-03-17 06:23] LABS: Bedside Glucose 132 mg/dL (74-106)
[2023-03-17] MEDS: BACITRACIN 15 GM Tube 1 APPLIC TOPICAL (08:00)
[2023-03-17] MEDS: Polyethylene Glycol 3350 17 GM PACKET PO (08:01)
[2023-03-17] MEDS: Metoprolol(XL)Succ 100 MG Tablet PO (08:02)
[2023-03-17] MEDS: Furosemide 20 MG Tablet PO (08:02)
[2023-03-17] MEDS: metFORMIN (XR) 500 MG Tablet PO (08:02)
[2023-03-17] MEDS: Losartan Potassium 100 MG Tablet PO (08:02)
[2023-03-17] MEDS: Senna/Docusate Sodium 1 Tablet 2 TABLET PO ×2 (08:02→20:47)
[2023-03-17] MEDS: amLODIPine 10 MG Tablet PO (08:03)
[2023-03-17] MEDS: Iron Polysaccharide Complex 150 MG CAPSULE PO (08:03)
[2023-03-17] MEDS: Menthol/Lanolin/Calamine/Znox 113 GM Tube 1 APPLIC TOPICAL ×2 (08:07→20:50)
[2023-03-17] MEDS: Miconazole Nitrate 43 GM Bottle 1 APPLIC TOPICAL ×2 (08:08→20:50)
--- NOTE | 2023-03-17 10:44 | NURSING ---
CHANGED PT COLOSTOMY APPLIANCE. CLEANED AREA,BEEFY RED IN COLOR. NO S/S OF INFECTION OR REDNESS NOTED. PT TOLERATED WELL.
[2023-03-17] MEDS: Pneumococcal Vaccine 20 Valent 0.5 ML Syringe IM (11:01)
--- NOTE | 2023-03-17 11:05 | NURSING ---
Administered scheduled Prevnar pneumococcal vaccine to left deltoid, pt tolerated well. Vaccine Information sheet received; pt has no questions\concerns at this time.
[2023-03-17] MEDS: Ensure Plus High Protein 120 ML LIQUID PO ×3 (11:35→20:46)
[2023-03-17] MEDS: Atorvastatin Calcium 10 MG Tablet PO (20:47)
[2023-03-18] VITALS (8 sets, daily range): BP systolic 131–169; BP diastolic 63–81; PULSE 81–91; RESP 18–24; TEMP 35.9; O2SAT 96–97; BMI 26.9
[2023-03-18] MEDS: Ensure Plus High Protein 120 ML LIQUID PO ×4 (05:48→21:58)
[2023-03-18] MEDS: hydrALAZINE 25 MG Tablet PO ×3 (05:48→21:57)
[2023-03-18] MEDS: Enoxaparin 40 MG/0.4 ML Syringe SC (05:48)
[2023-03-18 06:40] LABS: Bedside Glucose 133 mg/dL (74-106)
[2023-03-18] MEDS: metFORMIN (XR) 500 MG Tablet PO (08:34)
[2023-03-18] MEDS: BACITRACIN 15 GM Tube 1 APPLIC TOPICAL (08:34)
[2023-03-18] MEDS: Menthol/Lanolin/Calamine/Znox 113 GM Tube 1 APPLIC TOPICAL ×2 (08:35→21:58)
[2023-03-18] MEDS: Iron Polysaccharide Complex 150 MG CAPSULE PO (08:36)
[2023-03-18] MEDS: Losartan Potassium 100 MG Tablet PO (08:36)
[2023-03-18] MEDS: Furosemide 20 MG Tablet PO (08:36)
[2023-03-18] MEDS: Polyethylene Glycol 3350 17 GM PACKET PO (08:37)
[2023-03-18] MEDS: Metoprolol(XL)Succ 100 MG Tablet PO (08:37)
[2023-03-18] MEDS: amLODIPine 10 MG Tablet PO (08:37)
[2023-03-18] MEDS: Senna/Docusate Sodium 1 Tablet 2 TABLET PO ×2 (08:37→21:57)
[2023-03-18] MEDS: Miconazole Nitrate 43 GM Bottle 1 APPLIC TOPICAL ×2 (08:39→21:58)
[2023-03-18] MEDS: Acetaminophen 500 MG Tablet 1000 MG PO (10:33)
[2023-03-18] MEDS: Atorvastatin Calcium 10 MG Tablet PO (21:57)
[2023-03-19] MEDS: Ensure Plus High Protein 120 ML LIQUID PO ×4 (05:32→20:53)
[2023-03-19] MEDS: Enoxaparin 40 MG/0.4 ML Syringe SC (05:39)
[2023-03-19 05:43] VITALS: BP 162/61; PULSE 84
[2023-03-19] MEDS: hydrALAZINE 25 MG Tablet PO ×3 (05:43→20:53)
[2023-03-19 06:00] VITALS: BMI 26.7
[2023-03-19 06:58] LABS: Bedside Glucose 149 mg/dL (74-106)
[2023-03-19] MEDS: oxyCODONE 5 MG Tablet PO ×2 (08:20→18:42)
[2023-03-19] MEDS: BACITRACIN 15 GM Tube 1 APPLIC TOPICAL (08:21)
[2023-03-19] MEDS: metFORMIN (XR) 500 MG Tablet PO (08:21)
[2023-03-19] MEDS: Losartan Potassium 100 MG Tablet PO (08:22)
[2023-03-19] MEDS: Menthol/Lanolin/Calamine/Znox 113 GM Tube 1 APPLIC TOPICAL ×2 (08:22→20:54)
[2023-03-19] MEDS: Miconazole Nitrate 43 GM Bottle 1 APPLIC TOPICAL ×2 (08:22→20:55)
[2023-03-19] MEDS: Furosemide 20 MG Tablet PO (08:23)
[2023-03-19] MEDS: Polyethylene Glycol 3350 17 GM PACKET PO (08:23)
[2023-03-19] MEDS: Iron Polysaccharide Complex 150 MG CAPSULE PO (08:23)
[2023-03-19 08:24] VITALS: BP 151/66; PULSE 92
[2023-03-19] MEDS: Metoprolol(XL)Succ 100 MG Tablet PO (08:24)
[2023-03-19] MEDS: amLODIPine 10 MG Tablet PO (08:24)
[2023-03-19] MEDS: Senna/Docusate Sodium 1 Tablet 2 TABLET PO ×2 (08:24→20:53)
[2023-03-19 13:10] VITALS: BP 141/57; PULSE 88
[2023-03-19] MEDS: Acetaminophen 500 MG Tablet 1000 MG PO ×2 (14:14→20:52)
[2023-03-19 15:03] VITALS: BP 145/69; PULSE 88; RESP 18; TEMP 36.4; O2SAT 95
[2023-03-19 20:53] VITALS: BP 143/53; PULSE 77
[2023-03-19] MEDS: Atorvastatin Calcium 10 MG Tablet PO (20:54)
[2023-03-20 05:34] LABS: Absolute Lymphocyte Count 0.97 X10^3/uL (0.83-4.51); Absolute Neutrophil Count 3.5 X10^3/uL (2.0-7.7); Basophil# 0.04 X10^3/uL; Basophil% 0.7 % (0-1); Eosinophil# 0.24 X10^3/uL; Eosinophils% 4.4 % (0-5); Hematocrit 33.3 % (40-54); Hemoglobin 10.1 g/dL (13.0-16.5); Lymphocyte # 0.97 X10^3/ul (0.83-4.51); Lymphocyte % 17.9 % (19-41); Mean Corp Hgb Conc 30.3 g/dL (32-36); Mean Corpuscular Volume 85.6 fL (80-94); Mean Platelet Vol. 10.9 fl (6.2-12.0); Monocyte# 0.63 X10^3/uL; Monocyte% 11.6 % (0-10); NRBC Flagged by Analyzer 0 % (0-5); Neutrophil # 3.48 X10^3/uL (2.7-7.7); Neutrophil % 64.5 % (47-70); Platelet Count 238 K/mm3 (150-450); RBC Distribution Width CV 15.4 % (11.6-14.6); RBC Distribution Width SD 47.8 fl (35.1-43.9); Red Blood Count 3.89 M/mm3 (4.6-6.2); White Blood Count 5.4 K/mm3 (4.4-11.0)
[2023-03-20 05:47] LABS: Anion Gap 8 (5-15); BUN 42 mg/dL (7-18); BUN/Creat Ratio 29.8 RATIO (10-20); Calcium,Total 8.9 mg/dL (8.5-10.1); Chloride 108 mmol/L (98-107); Creatinine, Serum 1.41 mg/dL (0.70-1.30); EST Glomerular Filtration Rate 51 mL/min (>60); Est Glom Filt Rate - Afr Amer 62 mL/min (>60); Estimated Creatinine Clearance 43.14 ml/min; Glucose 135 mg/dL (74-106); Potassium 4.4 mmol/L (3.5-5.1); Sodium Level 139 mmol/L (136-145)
[2023-03-20 06:00] VITALS: BMI 26.5
[2023-03-20 06:05] VITALS: BP 158/74; PULSE 82
[2023-03-20] MEDS: hydrALAZINE 25 MG Tablet PO ×3 (06:05→20:12)
[2023-03-20] MEDS: Enoxaparin 40 MG/0.4 ML Syringe SC (06:07)
[2023-03-20] MEDS: Ensure Plus High Protein 120 ML LIQUID PO ×4 (06:07→20:17)
[2023-03-20 06:34] LABS: Bedside Glucose 127 mg/dL (74-106)
[2023-03-20] MEDS: Menthol/Lanolin/Calamine/Znox 113 GM Tube 1 APPLIC TOPICAL ×2 (09:44→20:16)
[2023-03-20] MEDS: Iron Polysaccharide Complex 150 MG CAPSULE PO (09:44)
[2023-03-20] MEDS: Losartan Potassium 100 MG Tablet PO (09:44)
[2023-03-20] MEDS: Furosemide 20 MG Tablet PO (09:44)
[2023-03-20] MEDS: Senna/Docusate Sodium 1 Tablet 2 TABLET PO ×2 (09:44→20:12)
[2023-03-20] MEDS: Polyethylene Glycol 3350 17 GM PACKET PO (09:44)
[2023-03-20] MEDS: amLODIPine 10 MG Tablet PO (09:44)
[2023-03-20] MEDS: metFORMIN (XR) 500 MG Tablet PO (09:44)
[2023-03-20] MEDS: BACITRACIN 15 GM Tube 1 APPLIC TOPICAL (09:45)
[2023-03-20] MEDS: Miconazole Nitrate 43 GM Bottle 1 APPLIC TOPICAL ×2 (09:45→20:17)
[2023-03-20 09:47] VITALS: PULSE 82
[2023-03-20] MEDS: Metoprolol(XL)Succ 100 MG Tablet PO (09:47)
[2023-03-20 13:48] VITALS: PULSE 77
[2023-03-20 14:55] VITALS: BP 136/72; PULSE 84; RESP 18; TEMP 36.2; O2SAT 97
[2023-03-20] MEDS: oxyCODONE 5 MG Tablet PO (20:11)
[2023-03-20 20:12] VITALS: BP 123/52; PULSE 82
[2023-03-20] MEDS: Atorvastatin Calcium 10 MG Tablet PO (20:13)
[2023-03-20 20:18] VITALS: O2SAT 95
[2023-03-21] VITALS (8 sets, daily range): BP systolic 127–168; BP diastolic 70–89; PULSE 72–88; RESP 16; TEMP 36.3; O2SAT 94–98; BMI 26.4
[2023-03-21] MEDS: hydrALAZINE 25 MG Tablet PO ×3 (05:59→20:37)
[2023-03-21] MEDS: Enoxaparin 40 MG/0.4 ML Syringe SC (05:59)
[2023-03-21] MEDS: Ensure Plus High Protein 120 ML LIQUID PO ×4 (05:59→20:41)
[2023-03-21 06:42] LABS: Bedside Glucose 115 mg/dL (74-106)
[2023-03-21] MEDS: Polyethylene Glycol 3350 17 GM PACKET PO (09:24)
[2023-03-21] MEDS: metFORMIN (XR) 500 MG Tablet PO (09:25)
[2023-03-21] MEDS: Menthol/Lanolin/Calamine/Znox 113 GM Tube 1 APPLIC TOPICAL ×2 (09:25→20:42)
[2023-03-21] MEDS: BACITRACIN 15 GM Tube 1 APPLIC TOPICAL (09:26)
[2023-03-21] MEDS: Miconazole Nitrate 43 GM Bottle 1 APPLIC TOPICAL ×2 (09:26→20:42)
[2023-03-21] MEDS: Losartan Potassium 100 MG Tablet PO (09:26)
[2023-03-21] MEDS: Furosemide 20 MG Tablet PO (09:27)
[2023-03-21] MEDS: Senna/Docusate Sodium 1 Tablet 2 TABLET PO ×2 (09:27→20:37)
[2023-03-21] MEDS: Metoprolol(XL)Succ 100 MG Tablet PO (09:27)
[2023-03-21] MEDS: amLODIPine 10 MG Tablet PO (09:27)
[2023-03-21] MEDS: Iron Polysaccharide Complex 150 MG CAPSULE PO (09:27)
[2023-03-21] MEDS: Acetaminophen 500 MG Tablet 1000 MG PO (09:32)
--- NOTE | 2023-03-21 11:49 | CASEMGMT ---
Social Work Received call from requesting to set DC date for pt for 04/01. IDT agreeable. Discussed DC needs. Offered HHC vs OP. prefers HHC. Pt has no DME needs, but inquiring about half bed rail. SW educated to providing pt with script and presenting it at point of purchase to waive taxes. appreciative. to transport. SW spoke with pt to confirm DC 04/01. Provided bed rail script to pt. Inquired about HHC preference. [facility] SW phoned referral to [facility] PT/OT. Plan: DC home with 04/01, [facility] PT/OT RON ShaikhW
[2023-03-21] MEDS: oxyCODONE 5 MG Tablet PO (20:35)
[2023-03-21] MEDS: Atorvastatin Calcium 10 MG Tablet PO (20:37)
[2023-03-22] VITALS (8 sets, daily range): BP systolic 132–171; BP diastolic 52–82; PULSE 81–91; RESP 18; TEMP 36.2–36.3; O2SAT 96; BMI 26.5
[2023-03-22] MEDS: Acetaminophen 500 MG Tablet 1000 MG PO (06:09)
[2023-03-22] MEDS: hydrALAZINE 25 MG Tablet PO ×3 (06:10→20:47)
[2023-03-22] MEDS: Enoxaparin 40 MG/0.4 ML Syringe SC (06:10)
[2023-03-22] MEDS: Ensure Plus High Protein 120 ML LIQUID PO ×4 (06:11→20:48)
[2023-03-22 06:43] LABS: Bedside Glucose 125 mg/dL (74-106)
[2023-03-22] MEDS: metFORMIN (XR) 500 MG Tablet PO (09:27)
[2023-03-22] MEDS: Losartan Potassium 100 MG Tablet PO (09:28)
[2023-03-22] MEDS: BACITRACIN 15 GM Tube 1 APPLIC TOPICAL (09:28)
[2023-03-22] MEDS: Furosemide 20 MG Tablet PO (09:28)
[2023-03-22] MEDS: Iron Polysaccharide Complex 150 MG CAPSULE PO (09:28)
[2023-03-22] MEDS: amLODIPine 10 MG Tablet PO (09:29)
[2023-03-22] MEDS: Senna/Docusate Sodium 1 Tablet 2 TABLET PO ×2 (09:29→20:48)
[2023-03-22] MEDS: Polyethylene Glycol 3350 17 GM PACKET PO (09:29)
[2023-03-22] MEDS: Metoprolol(XL)Succ 100 MG Tablet PO (09:29)
[2023-03-22] MEDS: Menthol/Lanolin/Calamine/Znox 113 GM Tube 1 APPLIC TOPICAL ×2 (09:31→20:48)
[2023-03-22] MEDS: Miconazole Nitrate 43 GM Bottle 1 APPLIC TOPICAL ×2 (09:31→20:49)
[2023-03-22] MEDS: Atorvastatin Calcium 10 MG Tablet PO (20:49)
[2023-03-23 06:00] VITALS: BMI 26.5
[2023-03-23 06:35] VITALS: BP 178/80; PULSE 78
[2023-03-23 06:35] LABS: Bedside Glucose 128 mg/dL (74-106)
[2023-03-23] MEDS: Enoxaparin 40 MG/0.4 ML Syringe SC (06:35)
[2023-03-23] MEDS: hydrALAZINE 25 MG Tablet PO ×3 (06:35→21:16)
[2023-03-23] MEDS: Ensure Plus High Protein 120 ML LIQUID PO ×4 (06:36→21:16)
[2023-03-23] MEDS: metFORMIN (XR) 500 MG Tablet PO (08:37)
[2023-03-23] MEDS: Iron Polysaccharide Complex 150 MG CAPSULE PO (08:37)
[2023-03-23] MEDS: Senna/Docusate Sodium 1 Tablet 2 TABLET PO ×2 (08:38→21:15)
[2023-03-23] MEDS: Furosemide 20 MG Tablet PO (08:38)
[2023-03-23] MEDS: Polyethylene Glycol 3350 17 GM PACKET PO (08:38)
[2023-03-23 08:39] VITALS: BP 178/80; PULSE 78
[2023-03-23] MEDS: Metoprolol(XL)Succ 100 MG Tablet PO (08:39)
[2023-03-23] MEDS: Losartan Potassium 100 MG Tablet PO (08:39)
[2023-03-23] MEDS: amLODIPine 10 MG Tablet PO (08:39)
[2023-03-23] MEDS: BACITRACIN 15 GM Tube 1 APPLIC TOPICAL (08:41)
[2023-03-23] MEDS: Menthol/Lanolin/Calamine/Znox 113 GM Tube 1 APPLIC TOPICAL ×2 (08:43→21:17)
[2023-03-23] MEDS: Miconazole Nitrate 43 GM Bottle 1 APPLIC TOPICAL ×2 (08:44→21:17)
[2023-03-23 13:38] VITALS: BP 159/71; PULSE 96; RESP 18; TEMP 36.2; O2SAT 95
[2023-03-23 15:03] VITALS: BP 159/71; PULSE 96
[2023-03-23 18:40] LABS: Mucous, Urine 0 SEEN /hpf (<or=2+); Squamous Epithelial Cells - UA 0 SEEN /hpf (0-5)
[2023-03-23 18:44] LABS: Color, Urine Yellow (Yellow); Glucose, Dipstick Normal (Normal); Ketone-Dipstick Negative (Negative); Leukocyte Esterase-Dipstick 500 /ul (Negative); Nitrite-Dipstick Negative (Negative); Occult Blood-Urine 150 /ul (Negative); Protein-Dipstick 100 mg/dl (Negative); Specific Gravity, Urine 1.015 (1.002-1.030); Urine Bilirubin Dipstick Negative (Negative); Urine Clarity Clear (Clear); Urine Urobilinogen Normal (Normal)
[2023-03-23 18:50] LABS: Bacteria RARE /hpf (None Seen); Red Blood Cells-Urine 5-10 SEEN /hpf (0-5); White Blood Cells 25-50 SEEN /hpf (0-5)
--- NOTE | 2023-03-23 20:32 | DS.PCM_ITS ---
Providers Date of Admission: 03/05/23 Primary Care Physician: Dr. Rigo Izaguirre MD Consultations 03/07/23 07:44 Consult: General Surgery Routine Consulting Provider: Italia Tan Reason for Consult: s/p small bowel resection. EMERGENT Consult: Yes MD Notified: Yes Date Notified: 03/07/23 Time Notified: 07:44 Method of Notification: Verbal Reason For Visit: SMALL BOWEL OBSTRUCTION, DEBILITY Diagnosis Discharge Diagnosis (1) Debility: Status: Acute Code(s): R53.81 - Other malaise (2) Small bowel obstruction: Status: Acute Code(s): K56.609 - Unspecified intestinal obstruction, unspecified as to partial versus complete obstruction (3) Status post small bowel resection: Status: Acute Code(s): Z90.49 - Acquired absence of other specified parts of digestive tract (4) Hypertensive urgency: Status: Acute Code(s): I16.0 - Hypertensive urgency (5) Hypokalemia: Status: Resolved Code(s): E87.6 - Hypokalemia (6) Acute kidney injury: Status: Acute Code(s): N17.9 - Acute kidney failure, unspecified (7) Status post total left knee replacement: Status: Acute Code(s): Z96.652 - Presence of left artificial knee joint (8) Diabetes: Status: Acute Code(s): E11.9 - Type 2 diabetes mellitus without complications (9) Postoperative anemia: Status: Acute Code(s): D64.9 - Anemia, unspecified (10) HTN (hypertension): Status: Inactive Code(s): I10 - Essential (primary) hypertension Qualifiers: Hypertension type: primary hypertension Qualified Code(s): I10 - Essential (primary) hypertension (11) Hyperlipidemia: Status: Acute Code(s): E78.5 - Hyperlipidemia, unspecified (12) History of prostate cancer: Status: Acute Code(s): Z85.46 - Personal history of malignant neoplasm of prostate (13) Indwelling Guthrie catheter present: Status: Acute Code(s): Z97.8 - Presence of other specified devices (14) Colostomy present: Status: Acute Code(s): Z93.3 - Colostomy status Plan 78 year old male with below past medical history significant for recent left total knee arthroplasty hospitalized for small bowel obstruction, underwent small bowel resection 02/25/[address] Michele, complicated by postoperative anemia, hypokalemia, acute kidney injury, elevated blood pressure, admitted to TCU with debility, here for rehabilitation, strengthening, prior to discharge home with . * Debility - PT/OT. * Pain - Tylenol 1000mg q6 prn pain (1-5), Oxycodone 5mg q4h prn pain (6-10). * Bowel - senna/colace 2 tablets bid, Magnesium citrate 300ml daily prn. * Adult immunization - Administer pneumonia vaccine, covid19 vaccine, flu vaccine as appropriate. * DVT prophylaxis - Lovenox 30mg sc daily. * Hypertension - Metoprolol succinate 100mg daily, Losartan 100mg daily, Amlodipine 10mg daily. * Hyperlipidemia - Atorvastatin 10mg qhs. * Skin irritation - Bacitracin ointment topical daily. * Nutrition - Ensure Plus 120ml 4x/day. * Diabetes Mellitus II - Metformin XR 500mg daily. * Acute kidney injury - Creatinine 2.36, trend bmp. Medications at Discharge Home Medications losartan 100 mg tablet 100 mg PO DAILY bp 06/01/13 metoprolol succinate 100 mg tablet,extended release 24 hr 100 mg PO DAILY bp metformin 500 mg tablet,extended release 24 hr 500 mg PO DAILY DIABETES 04/25/20 rosuvastatin 5 mg tablet 5 mg PO DAILY CHOLESTEROL 12/16/21 amlodipine 10 mg tablet 10 mg PO DAILY BP 01/07/23 acetaminophen 500 mg tablet 1,000 mg (2 x 500 mg) PO Q6H PRN pain #100 tabs 02/16/23 furosemide 20 mg tablet 20 mg PO DAILY 30 days #30 tabs 03/23/23 hydralazine 25 mg tablet 25 mg PO TID 30 days #90 tabs 03/23/23 polyethylene glycol 3350 17 gram oral powder packet 17 g PO DAILY 30 days #30 ea 03/23/23 polysaccharide iron complex 150 mg iron capsule (Ferrex) 150 mg PO DAILY 30 days #30 caps 03/23/23 sennosides 8.6 mg-docusate sodium 50 mg tablet (Stool Softener-Stimulant Laxative) 2 tab PO BID 30 days #120 tabs 03/23/23 Hospital Course Operations - (small bowel resection.) Procedures None Summary of Care Provided Minutes Spent on Discharge: 35 Hospital Course: 78 year old male with below past medical history significant for recent left total knee arthroplasty hospitalized for small bowel obstruction, underwent small bowel resection 02/25/[address] Michele, complicated by postoperative anemia, hypokalemia, acute kidney injury, elevated blood pressure, admitted to TCU with debility, here for rehabilitation, strengthening, prior to discharge home with . Discharge home with , [facility] PT/OT. Physical Exam Const alert General Appearance: cooperative HEENT normocephalic Eyes PERRL and EOMs intact bilaterally Neck supple, no JVD and no carotid bruits Resp normal respiratory effort, normal air movement and clear to auscultation bilaterally Cardio regular rate and regular rhythm GI normal to inspection, nondistended, normoactive bowel sounds, non-tender and non-distended Extremity normal capillary refill General Extremity: Negative for edema Skin no rashes or lesions noted General Skin Exam: no breakdown Psych affect normal Appearance: appropriate Medical Records Data Medical Nutrition Assessment Dietitian: Malnutrition Criteria Met Start: 03/14/23 13:39 Freq: Status: Active Protocol: Document 03/14/23 13:39 SLA (Rec: 03/14/23 13:39 SLA Desktop) Nutrition Malnutrition Evidence of Malnutrition Exists Yes Malnutrition (moderate): Acute Illness/Injury Evidenced By Suboptimal Energy Intake ( Moderate),Weight Loss (Severe) Intake Problem Increased Nutrient Needs (specify) Etiology protein r/t recent surgeries and PI to coccyx Signs/Symptoms as evidenced by need for healing Status Active Problem Inadequate Oral Intake Status Inactive Problem Clinical Problem Acute Disease or Injury Related Malnutrition Etiology related to issues w/ GI dysfunction and inadequate energy intake Signs/Symptoms as evidenced by 7.1% wt loss and ~50% po intake since adm Status Active Problem Recommendation Dietitian Recommendations/Changes Will liberalize diet to Regular no carbonation d/t signs and symptoms of malnutrition Will continue ONS w/ medpass - res likes [facility] Weight / BMI Weight Weight: 83.915 kg Body Mass Index (BMI) 26.5 ABG / Lab / Microbiology Data 03/20/23 04:50 03/20/23 04:50 Laboratory: Laboratory Results - last 24 hr 03/23/23 06:13: POC Glucose 128 H 03/23/23 18:30: Urine Color Yellow, Urine Clarity Clear, Urine pH 5.0, Ur Specific [place] 1.015, Urine Protein 100 H, Urine Glucose (UA) Normal, Urine Ketones Negative, Urine Occult Blood 150 H, Urine Nitrite Negative, Urine Bilirubin Negative, Urine Urobilinogen Normal, Ur Leukocyte Esterase 500 H, Urine RBC 5-10 SEEN, Urine WBC 25-50 SEEN, Ur Squamous Epith Cells 0 SEEN, Urine Bacteria RARE, Urine Mucus 0 SEEN Microbiology: Microbiology 03/16/23 06:00 Nasal Secretion SARS-CoV-2 Antigen (Rapid) - Final 03/13/23 05:00 Nasal Secretion SARS-CoV-2 Antigen (Rapid) - Final 03/10/23 06:15 Nasal Secretion SARS-CoV-2 Antigen (Rapid) - Final 03/08/23 09:00 Stool Stool Occult Blood (MAGDI) - Final 03/07/23 05:32 Nasal Secretion SARS-CoV-2 Antigen (Rapid) - Final D/C Instructions Discharge Diet: No restrictions Discharge Activity: Return to Normal Activity, May Shower and Use Walker Weight Bearing Status: Weight bearing as tolerated Call your doctor if you observe: Fever of 101 or Higher, Inability to urinate, Inability to have a bowel movement, Shortness of breath, Dizziness, Fainting spells, Swelling in the ankles, Chest pain and Uncontrolled pain Additional Instructions: Discharge home with , [facility] PT/OT. Please Follow Up With: Ry Victor DPM Meaningful Use Info Meaningful Use Diagnoses (Choose all that apply): None applicable Discharge Plan Admission Admit Date/Time: 03/05/23 16:26 Primary Reason for Your Visit: Debility. Attending Provider: Tong Carpenter Chi Primary Care Provider: Rigo Izaguirre Consulting Providers: Italia Tan Instructions Additional Instructions / Restrictions: Discharge home with , [facility] PT/OT. Discharge Orders/Prescriptions Prescriptions: New sennosides-docusate sodium [Stool Softener-Stimulant Laxat] 8.6-50 mg Tablet 2 tab PO BID 30 Days Qty: 120 0RF polysaccharide iron complex [Ferrex 150] 150 mg iron Capsule 150 mg PO DAILY 30 Days Qty: 30 0RF hydralazine 25 mg Tablet 25 mg PO TID 30 Days Qty: 90 0RF furosemide 20 mg Tablet 20 mg PO DAILY 30 Days Qty: 30 0RF polyethylene glycol 3350 17 gram Powder In Packet 17 g PO DAILY 30 Days Qty: 30 0RF Continued amlodipine 10 mg tablet 10 mg PO DAILY metoprolol succinate 100 MG tablet 100 mg PO DAILY Patient Comments: BP losartan 100 MG tablet 100 mg PO DAILY Patient Comments: BP metformin 500 MG tablet 500 mg PO DAILY rosuvastatin 5 mg tablet 5 mg PO DAILY acetaminophen 500 mg tablet 1,000 mg PO Q6H PRN Qty: 100 0RF Discontinued Eliquis 2.5 mg tablet 2.5 mg PO BID Qty: 28 0RF Patient Comments: 2.5MG PO BID Eliquis 5 mg Tablet 2.5 mg PO BID Qty: 0 0RF Patient Comments: 2.5MGPO BID sennosides-docusate sodium [Stool Softener-Stimulant Laxat] 8.6-50 mg Tablet 2 tab PO BID Qty: 0 0RF oxycodone 5 mg Tablet 5 mg PO Q6H PRN PRN (Reason: Pain Score 6-10) 3 Days Qty: 12 0RF Referrals / Follow Up: Ry Victor DPM [Med Staff - Active Staff] - (after d/c from TCU) Rigo Izaguirre MD [Primary Care Provider] - Disposition Disposition (needs filled in before D/C Order can be placed): Home Health Service
[2023-03-23 20:35] VITALS: PULSE 76; RESP 16; O2SAT 97
[2023-03-23 21:16] VITALS: BP 143/59; PULSE 80
[2023-03-23] MEDS: Atorvastatin Calcium 10 MG Tablet PO (21:16)
[2023-03-23] MEDS: oxyCODONE 5 MG Tablet PO (21:16)
[2023-03-24] VITALS (7 sets, daily range): BP systolic 108–167; BP diastolic 48–83; PULSE 80–94; RESP 18; TEMP 36; O2SAT 95–96; BMI 26.7
[2023-03-24] MEDS: Ensure Plus High Protein 120 ML LIQUID PO ×4 (05:37→20:21)
[2023-03-24] MEDS: hydrALAZINE 25 MG Tablet PO ×3 (05:38→20:16)
[2023-03-24] MEDS: Enoxaparin 40 MG/0.4 ML Syringe SC (05:38)
[2023-03-24 06:35] LABS: Bedside Glucose 141 mg/dL (74-106)
--- NOTE | 2023-03-24 08:08 | NURSING ---
PT COLOSTOMY UNIT CHANGED OUT THIS MORNING. PT TOLERATED WELL AND NO REDNESS, NO S/S OF INFECTION.AREA LOOKS GREAT.
[2023-03-24] MEDS: BACITRACIN 15 GM Tube 1 APPLIC TOPICAL (09:10)
[2023-03-24] MEDS: Furosemide 20 MG Tablet PO (09:11)
[2023-03-24] MEDS: metFORMIN (XR) 500 MG Tablet PO (09:11)
[2023-03-24] MEDS: Iron Polysaccharide Complex 150 MG CAPSULE PO (09:11)
[2023-03-24] MEDS: Losartan Potassium 100 MG Tablet PO (09:11)
[2023-03-24] MEDS: Polyethylene Glycol 3350 17 GM PACKET PO (09:12)
[2023-03-24] MEDS: Senna/Docusate Sodium 1 Tablet 2 TABLET PO ×2 (09:12→20:16)
[2023-03-24] MEDS: amLODIPine 10 MG Tablet PO (09:12)
[2023-03-24] MEDS: Metoprolol(XL)Succ 100 MG Tablet PO (09:12)
[2023-03-24] MEDS: Menthol/Lanolin/Calamine/Znox 113 GM Tube 1 APPLIC TOPICAL ×2 (09:16→20:25)
[2023-03-24] MEDS: Miconazole Nitrate 43 GM Bottle 1 APPLIC TOPICAL ×2 (09:16→20:26)
[2023-03-24] MEDS: Acetaminophen 500 MG Tablet 1000 MG PO (14:18)
[2023-03-24] MEDS: oxyCODONE 5 MG Tablet PO (20:14)
[2023-03-24] MEDS: Atorvastatin Calcium 10 MG Tablet PO (20:16)
[2023-03-24] MEDS: Cefdinir 300 MG Capsule PO (20:20)
[2023-03-25 05:23] VITALS: BP 123/75; PULSE 82
[2023-03-25] MEDS: hydrALAZINE 25 MG Tablet PO ×3 (05:23→20:17)
[2023-03-25] MEDS: Ensure Plus High Protein 120 ML LIQUID PO ×4 (05:23→20:17)
[2023-03-25] MEDS: Enoxaparin 40 MG/0.4 ML Syringe SC (05:24)
[2023-03-25 06:00] VITALS: BMI 26.3
[2023-03-25 06:41] LABS: Bedside Glucose 150 mg/dL (74-106)
[2023-03-25] MEDS: metFORMIN (XR) 500 MG Tablet PO (09:00)
[2023-03-25] MEDS: BACITRACIN 15 GM Tube 1 APPLIC TOPICAL (09:37)
[2023-03-25] MEDS: Menthol/Lanolin/Calamine/Znox 113 GM Tube 1 APPLIC TOPICAL ×2 (09:37→20:19)
[2023-03-25] MEDS: Senna/Docusate Sodium 1 Tablet 2 TABLET PO ×2 (09:38→20:18)
[2023-03-25] MEDS: Polyethylene Glycol 3350 17 GM PACKET PO (09:38)
[2023-03-25] MEDS: Miconazole Nitrate 43 GM Bottle 1 APPLIC TOPICAL ×2 (09:38→20:20)
[2023-03-25] MEDS: Iron Polysaccharide Complex 150 MG CAPSULE PO (09:39)
[2023-03-25] MEDS: Furosemide 20 MG Tablet PO (09:39)
[2023-03-25] MEDS: amLODIPine 10 MG Tablet PO (09:39)
[2023-03-25] MEDS: Losartan Potassium 100 MG Tablet PO (09:39)
[2023-03-25 09:40] VITALS: BP 122/71; PULSE 94
[2023-03-25] MEDS: Metoprolol(XL)Succ 100 MG Tablet PO (09:40)
[2023-03-25] MEDS: Cefdinir 300 MG Capsule PO ×2 (09:48→20:18)
[2023-03-25 14:30] VITALS: BP 126/70; PULSE 94
[2023-03-25 15:54] VITALS: BP 122/65; PULSE 90; RESP 14; TEMP 36.4; O2SAT 97
[2023-03-25 20:17] VITALS: BP 133/67; PULSE 83
[2023-03-25] MEDS: oxyCODONE 5 MG Tablet PO (20:17)
[2023-03-25] MEDS: Atorvastatin Calcium 10 MG Tablet PO (20:19)
[2023-03-25] MEDS: Acetaminophen 500 MG Tablet 1000 MG PO (20:28)
[2023-03-25 20:30] VITALS: O2SAT 96
[2023-03-26] MEDS: Ensure Plus High Protein 120 ML LIQUID PO ×4 (04:56→21:26)
[2023-03-26 04:57] VITALS: BP 154/72; PULSE 81
[2023-03-26] MEDS: hydrALAZINE 25 MG Tablet PO ×3 (04:57→21:28)
[2023-03-26] MEDS: Enoxaparin 40 MG/0.4 ML Syringe SC (04:57)
[2023-03-26 06:00] VITALS: BMI 26.4
[2023-03-26 06:48] LABS: Bedside Glucose 143 mg/dL (74-106)
[2023-03-26 08:12] VITALS: O2SAT 95
[2023-03-26 09:15] VITALS: BP 128/69; PULSE 95; RESP 17; TEMP 36.1; O2SAT 96
[2023-03-26] MEDS: metFORMIN (XR) 500 MG Tablet PO (09:22)
[2023-03-26 09:23] VITALS: PULSE 95
[2023-03-26] MEDS: Senna/Docusate Sodium 1 Tablet 2 TABLET PO ×2 (09:23→21:27)
[2023-03-26] MEDS: Iron Polysaccharide Complex 150 MG CAPSULE PO (09:23)
[2023-03-26] MEDS: amLODIPine 10 MG Tablet PO (09:23)
[2023-03-26] MEDS: Furosemide 20 MG Tablet PO (09:23)
[2023-03-26] MEDS: Losartan Potassium 100 MG Tablet PO (09:23)
[2023-03-26] MEDS: Polyethylene Glycol 3350 17 GM PACKET PO (09:23)
[2023-03-26] MEDS: Cefdinir 300 MG Capsule PO ×2 (09:23→21:28)
[2023-03-26] MEDS: Metoprolol(XL)Succ 100 MG Tablet PO (09:23)
[2023-03-26] MEDS: BACITRACIN 15 GM Tube 1 APPLIC TOPICAL (09:24)
[2023-03-26] MEDS: Miconazole Nitrate 43 GM Bottle 1 APPLIC TOPICAL ×2 (09:24→21:30)
[2023-03-26] MEDS: Menthol/Lanolin/Calamine/Znox 113 GM Tube 1 APPLIC TOPICAL ×2 (09:24→21:30)
[2023-03-26 13:33] VITALS: BP 145/71; PULSE 94
[2023-03-26 21:28] VITALS: BP 149/75; PULSE 78
[2023-03-26] MEDS: Atorvastatin Calcium 10 MG Tablet PO (21:28)
[2023-03-27] MEDS: oxyCODONE 5 MG Tablet PO (05:25)
[2023-03-27 05:26] VITALS: BP 174/79; PULSE 82
[2023-03-27] MEDS: Enoxaparin 40 MG/0.4 ML Syringe SC (05:26)
[2023-03-27] MEDS: Ensure Plus High Protein 120 ML LIQUID PO ×4 (05:26→21:39)
[2023-03-27] MEDS: hydrALAZINE 25 MG Tablet PO ×3 (05:26→21:39)
[2023-03-27 06:00] VITALS: BMI 26.2
[2023-03-27 06:13] LABS: Bedside Glucose 133 mg/dL (74-106)
[2023-03-27 06:29] LABS: Absolute Lymphocyte Count 1.25 X10^3/uL (0.83-4.51); Absolute Neutrophil Count 4.7 X10^3/uL (2.0-7.7); Basophil# 0.03 X10^3/uL; Basophil% 0.4 % (0-1); Eosinophil# 0.27 X10^3/uL; Eosinophils% 3.8 % (0-5); Hematocrit 33.6 % (40-54); Hemoglobin 10.2 g/dL (13.0-16.5); Lymphocyte # 1.25 X10^3/ul (0.83-4.51); Lymphocyte % 17.8 % (19-41); Mean Corp Hgb Conc 30.4 g/dL (32-36); Mean Corpuscular Volume 85.5 fL (80-94); Mean Platelet Vol. 10.5 fl (6.2-12.0); Monocyte# 0.68 X10^3/uL; Monocyte% 9.7 % (0-10); NRBC Flagged by Analyzer 0 % (0-5); Neutrophil # 4.73 X10^3/uL (2.7-7.7); Neutrophil % 67.3 % (47-70); Platelet Count 246 K/mm3 (150-450); RBC Distribution Width CV 15.4 % (11.6-14.6); RBC Distribution Width SD 48.1 fl (35.1-43.9); Red Blood Count 3.93 M/mm3 (4.6-6.2)
[2023-03-27 07:00] LABS: Anion Gap 5 (5-15); BUN 37 mg/dL (7-18); BUN/Creat Ratio 26.1 RATIO (10-20); Calcium,Total 9.1 mg/dL (8.5-10.1); Chloride 108 mmol/L (98-107); Creatinine, Serum 1.42 mg/dL (0.70-1.30); EST Glomerular Filtration Rate 51 mL/min (>60); Est Glom Filt Rate - Afr Amer 62 mL/min (>60); Estimated Creatinine Clearance 42.84 ml/min; Glucose 156 mg/dL (74-106); Potassium 4.3 mmol/L (3.5-5.1); Sodium Level 137 mmol/L (136-145)
[2023-03-27 08:15] VITALS: BP 132/69; PULSE 92; RESP 17; TEMP 36.3; O2SAT 97
[2023-03-27] MEDS: BACITRACIN 15 GM Tube 1 APPLIC TOPICAL (08:17)
[2023-03-27] MEDS: Miconazole Nitrate 43 GM Bottle 1 APPLIC TOPICAL ×2 (08:17→21:40)
[2023-03-27] MEDS: Menthol/Lanolin/Calamine/Znox 113 GM Tube 1 APPLIC TOPICAL ×2 (08:17→21:40)
[2023-03-27] MEDS: metFORMIN (XR) 500 MG Tablet PO (08:17)
[2023-03-27] MEDS: Losartan Potassium 100 MG Tablet PO (08:18)
[2023-03-27] MEDS: Iron Polysaccharide Complex 150 MG CAPSULE PO (08:18)
[2023-03-27] MEDS: amLODIPine 10 MG Tablet PO (08:18)
[2023-03-27] MEDS: Polyethylene Glycol 3350 17 GM PACKET PO (08:18)
[2023-03-27] MEDS: Furosemide 20 MG Tablet PO (08:18)
[2023-03-27 08:19] VITALS: PULSE 92
[2023-03-27] MEDS: Cefdinir 300 MG Capsule PO ×2 (08:19→21:39)
[2023-03-27] MEDS: Senna/Docusate Sodium 1 Tablet 2 TABLET PO ×2 (08:19→21:39)
[2023-03-27] MEDS: Metoprolol(XL)Succ 100 MG Tablet PO (08:19)
[2023-03-27] MEDS: Acetaminophen 500 MG Tablet 1000 MG PO (12:27)
[2023-03-27 13:47] VITALS: BP 129/63; PULSE 90
[2023-03-27 13:49] VITALS: PULSE 90
[2023-03-27 21:39] VITALS: BP 169/83; PULSE 83
[2023-03-27] MEDS: Atorvastatin Calcium 10 MG Tablet PO (21:40)
[2023-03-28] VITALS (8 sets, daily range): BP systolic 143–169; BP diastolic 71–83; PULSE 82–89; RESP 16–18; TEMP 36.1; O2SAT 94–97; BMI 26.3
[2023-03-28] MEDS: Enoxaparin 40 MG/0.4 ML Syringe SC (06:07)
[2023-03-28] MEDS: hydrALAZINE 25 MG Tablet PO ×3 (06:08→21:36)
[2023-03-28] MEDS: Ensure Plus High Protein 120 ML LIQUID PO ×4 (06:08→21:34)
[2023-03-28 06:45] LABS: Bedside Glucose 127 mg/dL (74-106)
[2023-03-28] MEDS: metFORMIN (XR) 500 MG Tablet PO (07:59)
[2023-03-28] MEDS: Losartan Potassium 100 MG Tablet PO (10:10)
[2023-03-28] MEDS: Iron Polysaccharide Complex 150 MG CAPSULE PO (10:10)
[2023-03-28] MEDS: Cefdinir 300 MG Capsule PO ×2 (10:10→21:36)
[2023-03-28] MEDS: Furosemide 20 MG Tablet PO (10:10)
[2023-03-28] MEDS: amLODIPine 10 MG Tablet PO (10:11)
[2023-03-28] MEDS: Metoprolol(XL)Succ 100 MG Tablet PO (10:11)
[2023-03-28] MEDS: Senna/Docusate Sodium 1 Tablet 2 TABLET PO ×2 (10:11→21:37)
[2023-03-28] MEDS: Miconazole Nitrate 43 GM Bottle 1 APPLIC TOPICAL ×2 (10:29→21:39)
[2023-03-28] MEDS: Menthol/Lanolin/Calamine/Znox 113 GM Tube 1 APPLIC TOPICAL ×2 (10:29→21:39)
[2023-03-28] MEDS: BACITRACIN 15 GM Tube 1 APPLIC TOPICAL (10:29)
[2023-03-28] MEDS: oxyCODONE 5 MG Tablet PO (21:35)
[2023-03-28] MEDS: Atorvastatin Calcium 10 MG Tablet PO (21:36)
[2023-03-29] VITALS (8 sets, daily range): BP systolic 135–161; BP diastolic 67–75; PULSE 72–94; RESP 18–20; TEMP 36.2; O2SAT 96; BMI 26.4
[2023-03-29] MEDS: hydrALAZINE 25 MG Tablet PO ×3 (06:11→21:23)
[2023-03-29] MEDS: Enoxaparin 40 MG/0.4 ML Syringe SC (06:11)
[2023-03-29] MEDS: Ensure Plus High Protein 120 ML LIQUID PO ×4 (06:12→21:24)
[2023-03-29 06:50] LABS: Bedside Glucose 119 mg/dL (74-106)
[2023-03-29] MEDS: Losartan Potassium 100 MG Tablet PO (09:31)
[2023-03-29] MEDS: metFORMIN (XR) 500 MG Tablet PO (09:31)
[2023-03-29] MEDS: Iron Polysaccharide Complex 150 MG CAPSULE PO (09:31)
[2023-03-29] MEDS: Miconazole Nitrate 43 GM Bottle 1 APPLIC TOPICAL ×2 (09:33→21:25)
[2023-03-29] MEDS: Menthol/Lanolin/Calamine/Znox 113 GM Tube 1 APPLIC TOPICAL ×2 (09:33→21:25)
[2023-03-29] MEDS: Furosemide 20 MG Tablet PO (09:33)
[2023-03-29] MEDS: BACITRACIN 15 GM Tube 1 APPLIC TOPICAL (09:34)
[2023-03-29] MEDS: Polyethylene Glycol 3350 17 GM PACKET PO (09:35)
[2023-03-29] MEDS: Senna/Docusate Sodium 1 Tablet 2 TABLET PO ×2 (09:35→21:23)
[2023-03-29] MEDS: Cefdinir 300 MG Capsule PO ×2 (09:35→21:24)
[2023-03-29] MEDS: amLODIPine 10 MG Tablet PO (09:35)
[2023-03-29] MEDS: Metoprolol(XL)Succ 100 MG Tablet PO (09:35)
[2023-03-29] MEDS: oxyCODONE 5 MG Tablet PO (21:22)
[2023-03-29] MEDS: Atorvastatin Calcium 10 MG Tablet PO (21:23)
[2023-03-30 05:04] VITALS: BP 158/73; PULSE 81
[2023-03-30] MEDS: Ensure Plus High Protein 120 ML LIQUID PO ×3 (05:04→21:34)
[2023-03-30] MEDS: Enoxaparin 40 MG/0.4 ML Syringe SC (05:04)
[2023-03-30] MEDS: hydrALAZINE 25 MG Tablet PO ×3 (05:04→21:34)
[2023-03-30 06:26] LABS: Bedside Glucose 147 mg/dL (74-106)
[2023-03-30] MEDS: Iron Polysaccharide Complex 150 MG CAPSULE PO (09:13)
[2023-03-30] MEDS: Furosemide 20 MG Tablet PO (09:13)
[2023-03-30] MEDS: BACITRACIN 15 GM Tube 1 APPLIC TOPICAL (09:13)
[2023-03-30] MEDS: Losartan Potassium 100 MG Tablet PO (09:13)
[2023-03-30] MEDS: metFORMIN (XR) 500 MG Tablet PO (09:13)
[2023-03-30 09:14] VITALS: PULSE 85
[2023-03-30] MEDS: Senna/Docusate Sodium 1 Tablet 2 TABLET PO ×2 (09:14→21:34)
[2023-03-30] MEDS: Metoprolol(XL)Succ 100 MG Tablet PO (09:14)
[2023-03-30] MEDS: Cefdinir 300 MG Capsule PO ×2 (09:14→21:33)
[2023-03-30] MEDS: Miconazole Nitrate 43 GM Bottle 1 APPLIC TOPICAL ×2 (09:15→21:36)
[2023-03-30] MEDS: Polyethylene Glycol 3350 17 GM PACKET PO (09:15)
[2023-03-30] MEDS: Menthol/Lanolin/Calamine/Znox 113 GM Tube 1 APPLIC TOPICAL ×2 (09:16→21:36)
[2023-03-30] MEDS: amLODIPine 10 MG Tablet PO (09:21)
[2023-03-30 14:34] VITALS: BP 129/67; PULSE 84
[2023-03-30 16:00] VITALS: BP 136/69; PULSE 78; RESP 15; TEMP 35.7; O2SAT 95
[2023-03-30] MEDS: oxyCODONE 5 MG Tablet PO (21:32)
[2023-03-30 21:34] VITALS: BP 148/79; PULSE 77
[2023-03-30] MEDS: Atorvastatin Calcium 10 MG Tablet PO (21:35)
[2023-03-30 23:20] VITALS: O2SAT 96
[2023-03-31 04:22] VITALS: BP 150/71; PULSE 80
[2023-03-31] MEDS: hydrALAZINE 25 MG Tablet PO ×3 (04:22→20:33)
[2023-03-31] MEDS: Enoxaparin 40 MG/0.4 ML Syringe SC (04:23)
[2023-03-31] MEDS: Ensure Plus High Protein 120 ML LIQUID PO ×4 (04:23→20:32)
[2023-03-31 06:13] VITALS: O2SAT 94
[2023-03-31 06:36] LABS: Bedside Glucose 129 mg/dL (74-106)
[2023-03-31] MEDS: metFORMIN (XR) 500 MG Tablet PO (08:20)
[2023-03-31] MEDS: BACITRACIN 15 GM Tube 1 APPLIC TOPICAL (09:59)
[2023-03-31] MEDS: Iron Polysaccharide Complex 150 MG CAPSULE PO (09:59)
[2023-03-31] MEDS: Miconazole Nitrate 43 GM Bottle 1 APPLIC TOPICAL ×2 (10:00→20:35)
[2023-03-31] MEDS: Menthol/Lanolin/Calamine/Znox 113 GM Tube 1 APPLIC TOPICAL ×2 (10:00→20:35)
[2023-03-31] MEDS: Polyethylene Glycol 3350 17 GM PACKET PO (10:00)
[2023-03-31] MEDS: Losartan Potassium 100 MG Tablet PO (10:00)
[2023-03-31] MEDS: Cefdinir 300 MG Capsule PO ×2 (10:01→20:33)
[2023-03-31] MEDS: Furosemide 20 MG Tablet PO (10:01)
[2023-03-31] MEDS: Senna/Docusate Sodium 1 Tablet 2 TABLET PO ×2 (10:02→20:32)
[2023-03-31] MEDS: amLODIPine 10 MG Tablet PO (10:10)
[2023-03-31 10:15] VITALS: BP 129/66; PULSE 85
[2023-03-31] MEDS: Metoprolol(XL)Succ 100 MG Tablet PO (10:15)
--- NOTE | 2023-03-31 11:23 | MDS.RN ---
MDS pain interview completed.
[2023-03-31 14:19] VITALS: BP 116/56; PULSE 81; RESP 16; TEMP 36.6; O2SAT 96
[2023-03-31 14:43] VITALS: PULSE 81
[2023-03-31 20:33] VITALS: BP 140/76; PULSE 77
[2023-03-31] MEDS: Atorvastatin Calcium 10 MG Tablet PO (20:33)
[2023-04-01 05:14] VITALS: BP 156/79; PULSE 78
[2023-04-01] MEDS: hydrALAZINE 25 MG Tablet PO (05:14)
[2023-04-01] MEDS: Enoxaparin 40 MG/0.4 ML Syringe SC (05:15)
[2023-04-01 06:00] VITALS: BMI 26.4
[2023-04-01 07:46] LABS: Bedside Glucose 127 mg/dL (74-106)
[2023-04-01 08:09] VITALS: BP 150/68; PULSE 85; RESP 17; TEMP 36.1; O2SAT 97
[2023-04-01] MEDS: Losartan Potassium 100 MG Tablet PO (08:11)
[2023-04-01] MEDS: Menthol/Lanolin/Calamine/Znox 113 GM Tube 1 APPLIC TOPICAL (08:11)
[2023-04-01] MEDS: metFORMIN (XR) 500 MG Tablet PO (08:11)
[2023-04-01] MEDS: Miconazole Nitrate 43 GM Bottle 1 APPLIC TOPICAL (08:11)
[2023-04-01 08:12] VITALS: PULSE 85
[2023-04-01] MEDS: amLODIPine 10 MG Tablet PO (08:12)
[2023-04-01] MEDS: Furosemide 20 MG Tablet PO (08:12)
[2023-04-01] MEDS: Senna/Docusate Sodium 1 Tablet 2 TABLET PO (08:12)
[2023-04-01] MEDS: Iron Polysaccharide Complex 150 MG CAPSULE PO (08:12)
[2023-04-01] MEDS: Metoprolol(XL)Succ 100 MG Tablet PO (08:12)
[2023-04-01] MEDS: Polyethylene Glycol 3350 17 GM PACKET PO (08:12)
--- NOTE | 2023-04-01 12:57 | CASEMGMT ---
Social Work BIMS () and PHQ-2 () completed for MDS assessment. Chula Lu MSW [employer]IST
== END 2023-04-01 11:37 | disposition home health service (06) | DRG 390 ==
PROVIDERS: Admitting Provider Family Medicine Geriatric Medicine; PCP Family Medicine; Referring Provider Family Medicine Geriatric Medicine; Visit Provider Family Medicine Geriatric Medicine
DX: K56.609 Unspecified intestinal obstruction, unspecified as to partial versus complete obstruction (principal); B95.2 Enterococcus as the cause of diseases classified elsewhere; E11.9 Type 2 diabetes mellitus without complications; E78.00 Pure hypercholesterolemia, unspecified; E87.6 Hypokalemia; T83.511A Infection and inflammatory reaction due to indwelling urethral catheter, initial encounter; Z93.3 Colostomy status; I10 Essential (primary) hypertension; Z79.84 Long term (current) use of oral hypoglycemic drugs; G89.29 Other chronic pain; Z79.01 Long term (current) use of anticoagulants; Z86.16 Personal history of COVID-19; Z79.899 Other long term (current) drug therapy; Z23 Encounter for immunization; N39.0 Urinary tract infection, site not specified; Y73.8 Miscellaneous gastroenterology and urology devices associated with adverse incidents, not elsewhere classified
CPT/HCPCS: 36415; 36430; 80048; 81001; 82274; 82962; 85014; 85018; 85025; 86850; 86900; 86901; 86920; 86922; 87077; 87086; 87088; 87186; 87811; 90480; 90677; 93971; 97110; 97116; 97162; 97166; 97530; 97535; 97802; G0009; J7040; P9016; 91322; A4216; J1940

== ENCOUNTER 2023-03-09 08:30 | Outpatient (CLI) | payer MEDICARE, OTHER, SELFPAY ==
[2023-03-09] MEDS: 0.9% NaCl Peripheral Flush Adult/Peds IV (08:50)
[2023-03-09] MEDS: 0.9% Normal Saline (500mL Bag) 500 ML 15 ML IV (08:50)
[2023-03-09 08:53] VITALS: BP 156/62; PULSE 87; RESP 16; TEMP 36.2; O2SAT 98; BMI 27.9
[2023-03-09 09:23] VITALS: BP 169/69; PULSE 86; RESP 18; TEMP 36.3; O2SAT 100
[2023-03-09 10:23] VITALS: BP 174/70; PULSE 88; RESP 16; TEMP 36.7
[2023-03-09 10:59] VITALS: BP 169/66; PULSE 84; RESP 18; TEMP 36.3
[2023-03-09] MEDS: Furosemide 20 MG/2 ML VIAL IV (11:10)
[2023-03-09 11:57] VITALS: BP 175/76; PULSE 87; RESP 16; TEMP 36.3; O2SAT 98
[2023-03-09 13:03] VITALS: BP 165/62; PULSE 86; RESP 16; TEMP 36; O2SAT 96
== END 2023-03-09 08:31 | disposition home or self-care (01) ==
PROVIDERS: PCP Family Medicine; Referring Provider Family Medicine Geriatric Medicine; Visit Provider Family Medicine Geriatric Medicine
DX: D64.89 Other specified anemias (principal)
CPT/HCPCS: 36415; 36430; 86850; 86900; 86901; 86920; 86922; J7040; P9016; A4216; J1940

== ENCOUNTER → 2023-03-14 | Outpatient (CLI) | payer MEDICARE, OTHER, SELFPAY ==
--- NOTE | 2023-03-14 09:39 | VDLE_ITS ---
Reason For Study: LLE Pain Procedure LEFT This is a venous duplex using B-mode, color GSV is normal. flow and spectral Doppler. CFV is compressible, spontaneous, phasic, Exam performed portable in patient room. competent, and demonstrates normal The exam was diagnostic. augmentation. A preliminary report was called and/or faxed FV is compressible, spontaneous, phasic, to TCU RN. competent and demonstrates normal augmentation. POP V is compressible, spontaneous, phasic, competent and demonstrates normal augmentation. T/P Trunk is compressible. PTV is compressible. LT PerV is compressible. VL/Venous Duplex US, Unilateral Interpretation Summary Deep veins of the left lower extremity are patent and compressible segmentally. There is no evidence of left lower extremity deep vein thrombosis. Valvular competence appears intac t within the proximal deep venous system on the left . The left great saphenous vein appears patent a nd compressible segmentally. Ordering Physician: Tong Carpenter Chi Referring Physician: Tong Carpenter Chi Performed By: Aidan Banegas RVT
== END | disposition home or self-care (01) ==
LOC: CVS 09:39
PROVIDERS: PCP Family Medicine; Referring Provider Family Medicine Geriatric Medicine; Visit Provider Family Medicine Geriatric Medicine
DX: M79.662 Pain in left lower leg (principal)
CPT/HCPCS: 93971

== ENCOUNTER → 2023-04-21 | Outpatient (CLI) | payer MEDICARE, OTHER, SELFPAY ==
[2023-04-21 18:14] LABS: PSA,Total- Diagnostic 9.96 ng/mL (0.0-4.0)
== END | disposition home or self-care (01) ==
LOC: MFPLAB 14:05
PROVIDERS: PCP Family Medicine; Visit Provider Urology
DX: R97.20 Elevated prostate specific antigen [PSA] (principal)
CPT/HCPCS: 36415; 84153

== ENCOUNTER → 2023-06-02 | Outpatient (CLI) | payer MEDICARE, OTHER, SELFPAY ==
--- OUTSIDE RECORDS SUMMARY | 2023-06-02 15:06 | XMS RPT_ITS | CCD ---
Author Name Unknown Address [address] [place] [address] Organization [facility] Care Team Providers Care [employer] Hand Name Role Phone Rigo Manrique MD Primary Care Provider 1( [phone] Siddharth Navarro Unavailable PACO EDMONDS Referring Unavailable RIGO MANRIQUE Primary Care Unavailable PACO EDMONDS Referring Unavailable PACO EDMONDS Attending Unavailable RIGO MANRIQUE Primary Care Unavailable PACO EDMONDS Referring Unavailable RIGO MANRIQUE Primary Care Unavailable PACO EDMONDS Referring Unavailable PACO EDMONDS Attending Unavailable RIGO MANRIQUE Primary Care Unavailable PACO EDMONDS Referring Unavailable RIGO MANRIQUE Primary Care Unavailable Allergies Allergy Classification Reported Allergen(s) Allergy Type Date of Onset Reaction(s) Facility (2 sources) Melatonin; Translations: [MELATONIN] Drug Allergy 08-08-2013 Rash [facility] (2 sources) Meperidine; Translations: [MEPERIDINE (PF)] Drug Allergy 07-17-2013 Vomiting [facility] Medications Completed/Discontinued Medications Medication Drug Class(es) Dates Sig (Normalized) Sig (Original) amLODIPine 5 mg oral tablet (1 source) Dihydropyridine Calcium Channel Sophia Start: 05-24-2013 take 2 tablets by mouth once daily amLODIPine (NORVASC) 5 mg tablet Take 10 mg by mouth once daily. 0 05/24/2013 Active Problems Active Problems Problem Classification Problem Date Documented Da te Episodic/Chronic Cancer of prostate (3 sources) Malignant tumor of prostate; Translations: [Malignant neoplasm of prostate] Onset: 09-06-2016 Chronic Cancer of rectum and anus (2 sources) Malignant tumor of rectum; Translations: [Malignant neoplasm of rectum] Onset: 02-14-2014 02-14-2014 Chronic Disorders of lipid metabolism (1 source) Hypercholesterolemi a; Translations: [Pure hypercholesterolemi a, unspecified] 07-06-2013 Chronic Essential hypertension (1 source) Hypertensive disorder; Translations: [Essential (primary) hypertension] Chronic Nutritional deficiencies (1 source) Vitamin D deficiency; Translations: [Vitamin D deficiency, unspecified] Onset: 02-11-2014 02-11-2014 Chronic Other lower respiratory disease (1 source) Multiple nodules of lung; Translations: [Other nonspecific abnormal finding of lung field] Episodic Other nervous system disorders (2 sources) Neuropathy; Translations: [Polyneuropathy, unspecified] Onset: 01-11-2014 01-11-2014 Chronic Other non-epithelial cancer of skin (1 source) History of malignant basal cell neoplasm of skin; Translations: [Personal history of other malignant neoplasm of skin] 05-11-2021 Episodic Residual codes; unclassified (1 source) Family history of prostate cancer; Translations: [Family history of malignant neoplasm of prostate] 05-11-2021 Episodic Secondary malignancies (1 source) Secondary malignant neoplasm of left lung; Translations: [Secondary malignant neoplasm of left lung] Chronic Secondary malignancies (1 source) Secondary malignant neoplasm of intra-abdominal lymph nodes; Translations: [Secondary and unspecified malignant neoplasm of intra-abdominal lymph nodes] Onset: 10-07-2013 10-07-2013 Chronic Secondary malignancies (1 source) Secondary malignant neoplasm of lung; Translations: [Secondary malignant neoplasm of unspecified lung] Onset: 03-21-2017 03-21-2017 Chronic Secondary malignancies (1 source) Secondary malignant neoplasm of left lung; Translations: [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)] Onset: 03-21-2017 Chronic Past or Other Problems Problem Classification Problem Date Documented Da te Episodic/Chronic Cancer of rectum and anus (2 sources) History of malignant neoplasm of rectum; Translations: [Personal history of other malignant neoplasm of rectum, rectosigmoid junction, and anus] Onset: 02-11-2014 02-11-2014 Episodic Fluid and electrolyte disorders (1 source) Hypokalemia; Translations: [Hypokalemia] Onset: 07-24-2013 Episodic Other lower respiratory disease (1 source) Other nonspecific abnormal finding of lung field; Translations: [Lung nodules] Onset: 11-17-2021 Episodic Residual codes; unclassified (1 source) Patient encounter status; Translations: [Encounter for prophylactic measures, unspecified] Onset: 07-24-2013 Episodic Results Test Name Value Interpretation Reference Range Facil ity Encounters Encounter Date Encounter Type Care Provider Facility Start: 05-26-2022 End: 05-26-2022 ambulatory [facility] Facility:[facility] Start: 11-19-2021 End: 11-19-2021 ambulatory [facility] Facility:[facility] Start: 11-17-2021 End: 11-17-2021 ambulatory [facility] Facility:[facility] Start: 11-17-2021 End: 11-17-2021 Subsequent hospital visit by physician [facility] ([facility] Work Phone: Cat Scan Procedures Date Procedure Procedure Detail Performing Clinician Start: 11-17-2021 Ct thorax w/o contra st material Paco Edmonds MD Work Phone: Start: 09-28-[address] screening assessment [address] ([facility]) Work Phone: Plan of Treatment Date Care Activity Detail Author Start: 11-17-2024 DIABETES SCREEN DIABETES SCREEN [facility] Start: 01-14-2022 Influenza vaccination INFLUENZA (#1) [facility] Start: 05-16-2021 ADVANCE DIRECTIVE DISCUSSION ADVANCE DIRECTIVE DISCUSSION [facility] Start: 09-28-2018 Adult depression screening assessment DEPRESSION SCREENING [facility] Start: 01-14-2008 PNEUMOCOCCAL: 65+ (1 - PCV) PNEUMOCOCCAL: 65+ (1 - PCV) [facility] Start: 1993 SHINGRIX VACCINE (1 of 2) SHINGRIX VACCINE (1 of 2) [facility] Start: 1962 Urine microalbumin profile DTAP,TDAP,TD (1 - Tdap) [facility] Start: 1961 ANNUAL 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 ANETA DISEASE VISIT ANNUAL PCP TEAM CHRONIC DISEASE VISIT [facility] Start: 1961 BP CONTROLLED (<130/80) BP CON TROLLED (<130/80) [facility] Ct thorax w/o contra st material CT CHEST WO IVCON Radiology Routine Lung nodules Malignant neoplasm of prostate (HCC) 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) 11/17/2021 10:45 AM EDT [facility] Immun[facility] Immunization Date Immunization Notes Care Provider Alex clemons 03-12-2015 influenza, high dose seasonal, preservative-free Ct ([facility]) Work Phone: [facility] Payers Date Payer Category Payer Private Health Insurance [facility] AARP SUPPLEMENT [id number] 2012-Present [phone] [address] [place] [address] Indemnity [id number] 2012 Unknown [id number] 2007 Medicare MEDICARE MEDICAR E A AND B [id number] 2007-Present [phone] [place] [address] Medicare [id number] 2007 Medicare [id number] Social History Date Type Detail Facility Start: 04-30-2013 Tobacco smoking stat [facility] Never smoked tobacco [facility] Start: 04-30-2013 Tobacco use and exposure Smoke less tobacco non-user [facility] Start: 05-13-2021 Alcohol intake Current drinke r of alcohol (finding) [facility] Start: 06-17-2016 History SDOH Alcohol Comment rare [facility] Start: 1945 Sex Assigned At Male C [facility] Start: 11-07-2021 End: 11-17-2021 Exposure to SARS-CoV-2 (event) Not sure [facility] Progress note 05-26-2022 Note Date & Type Note Facility 05-26-2022 Note HNO ID: [id number] Author: Paco Edmonds MD Service: ? Author Type: Physician Type: Progress Notes Filed: 05/27/2022 10:53 AM Note Text: Hematology and Medical Oncology PATIENT NAME: Vilma Smith. CLINIC NO: [id number]. ATTENDING PHYSICIAN: Paco Edmonds MD. DATE OF SERVICE: 05/26/2022 Diagnosis: History of rectal cancer; and metastatic prostate cancer with lung metastasis. HPI: Vilma Smith is a 77 year old male with metastatic prostate cancer and history of rectal cancer. H/o The pateint had prior endoscopy by Dr. Hammonds in 2006 with complete resection of one benign polyp after he was treated for localized prostate cancer. Patient is also being evaluated by Dr. San for history of prostate cancer with radiation treatment in 2006. On examination, Dr. San identified an irregular anal mass at the anterior position. He was referred to Dr. Waggoner for lower endoscopy with anoscopy and biopsy on 06/08/13. The patient was found to have an irregular mass in the anus. Pathology demonstrated invasive adenocarcinoma, moderately to well-differentiated.The patient had an MRI of his pelvis which reveals a T3 lesion. There were no metastatic disease. He saw Dr. Ocampo for surgery. Patient had a PROCTECTOMY COMPLETE W/ ABDOMINOPERINEAL W/ COLOSTOMY on 07/17/2013. Pathologic Staging (pTNM):pT2, pN1a: Patient completed 12 cycles of adjuvant chemotherapy with FOLFOX on February 12. On cycle # 8 - 9 of FOLFOX next week with 20% reduction of Oxaliplatin. cycle # 10 -12 without Oxaliplatin because of neurological toxicity. Patient had progression of prostate cancer in 2016. He developed bilateral hydronephrosis as well as bilateral pulmonary nodules. He saw Dr. Cunningham and started on androgen ablation therapy. He had bilateral ureteral stents and has no flank pain or hematuria. Follow-up CT scan last month showed improvement or decrease in size of his pulmonary nodules as well as hydronephrosis and decrease in his PSA. Current treatment: ELIGARD ( hormone sensitive; metastatic prostate cancer ) Interim history: Mr. Smith is doing well with androgen ablation therapy for his metastatic prostate cancer is stable. He has no bone pain, cough or shortness of breath. His weight and appetite is stable. 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 His only complaint is severe pain in his left knee due to meniscus tear and degenerative arthritis. He is undergoing physical therapy. All medications AND allergies updated and reviewed by me. REVIEW OF SYSTEMS Appetite:good Energy level: Fair Denies fevers. Resp:denies cough or sob Cardiac:denies chest pain/palpitations GI:denies abd pain, n/v, ostomy functioning well :denies dysuria/hematuria -did have an episode of hematuria-has been seen by urology Extrem:denies pain to back/bones/joints Neuro:tingling/numbness to finger tips/soles of feet Skin:denies rashes Heme:denies bleeding Past medical history, appointments, medications, allergies reviewed. No changes. EXAM: APPEARANCE Well appearing, alert, in no acute distress, well-hydrated, well nourished. Performance status 90% BP 133/70 Pulse 68 Temp 97.1 Wt 200 lb (90.7kg) SpO2 98% HEART RRR with normal S1 and S2, no murmurs, no gallops, no JVD appreciated LUNG clear to auscultation LYMPH NODES No cervical lymphadenopathy, No supraclavicular lymphadenopathy and No axillary lymphadenopathy. ABDOMEN bowel sounds normoactive, no bruits, soft, non-tender, non-distended, without organomegaly or palpable masses. Colostomy normal functioning. EXTREMITIES No edema NEURO Awake, alert and oriented x 3, Normal gait and No involuntary motions. SKIN Skin color, texture, turgor normal, no suspicious rashes or lesions LABS: Component Latest Ref Rng AND Units 05/26/2022 WBC 3.70 - 11.00 k/uL 6.24 RBC 4.20 - 6.00 m/uL 4.44 Hemoglobin 13.0 - 17.0 g/dL 11.8 (L) Hematocrit 39.0 - 51.0 % 36.2 (L) MCV 80.0 - 100.0 fL 81.5 MCH 26.0 - 34.0 pg 26.6 MCHC 30.5 - 36.0 g/dL 32.6 RDW-CV 11.5 - 15.0 % 15.3 (H) Platelet Count 150 - 400 k/uL 234 MPV 9.0 - 12.7 fL 9.7 Neut% % 64.1 Abs Neut (ANC) 1.45 - 7.50 k/uL 4.00 Lymph% % 20.0 Abs Lymph 1.00 - 4.00 k/uL 1.25 Miner% % 8.7 Abs Miner <0.87 k/uL 0.54 Eosin% % 5.6 Abs Eosin <0.46 k/uL 0.35 Baso% % 1.1 Abs Baso <0.11 k/uL 0.07 Immature Gran % % 0.5 IMMATURE GRANS (ABS) <0.10 k/uL 0.03 NRBC /100 WBC 0.0 Absolute nRBC <0.01 k/uL <0.01 DTYPE Auto Component Latest Ref Rng AND Units 05/26/2022 Protein, Total 6.3 - 8.0 g/dL 7.0 Albumin 3.9 - 4.9 g/dL 4.4 Calcium 8.5 - 10.2 mg/dL 10.0 Bilirubin, Total 0.2 - 1.3 mg/dL 0.3 Alkaline Phosphatase 38 - 113 U/L 93 AST 14 - 40 U/L 18 ALT 10 - 54 U/L 21 Glucose 74 - 99 mg/dL 158 (H) BUN 9 - 24 mg/dL 32 (H) Creatinine 0.73 - 1.22 mg/dL 1.52 (H) Sodium 136 - 144 mmol/L 140 Potassium 3.7 - 5.1 mmol/L 4.5 Chloride 97 - 105 mmol (more content not included)... [facility] Progress note 11-19-2021 Note Date & Type Note Facility 11-19-2021 Note HNO ID: [id number] Author: Paco Edmonds MD Service: ? Author Type: Physician Type: Progress Notes Filed: 11/20/2021 9:00 AM Note Text: Hematology and Medical Oncology PATIENT NAME: Vilma Smith. CLINIC NO: [id number]. ATTENDING PHYSICIAN: Paco Edmonds MD. DATE OF SERVICE:11/19/2021. Diagnosis:?History of rectal cancer; and metastatic prostate cancer?with lung metastasis. ? HPI: Vilma Smith is a 76?year old male with?metastatic prostate cancer and history of?rectal cancer. ?? H/o The pateint had prior endoscopy by Dr. Hammonds in 2006 with complete resection of one benign polyp after he was treated for localized prostate cancer. ?? Patient is also being evaluated by Dr. San for history of prostate cancer with radiation treatment in 2006. On examination, Dr. San identified an irregular anal mass at the anterior position. He was referred to Dr. Waggoner for lower endoscopy with anoscopy and biopsy on 06/08/13. The patient was found to have an irregular mass in the anus. Pathology demonstrated invasive adenocarcinoma, moderately to well-differentiated.The patient had an MRI of his pelvis which reveals a T3 lesion. There were no metastatic disease. ?? He saw?Dr. Ocampo for surgery. Patient had a PROCTECTOMY COMPLETE W/ ABDOMINOPERINEAL W/ COLOSTOMY on 07/17/2013. Pathologic Staging (pTNM):pT2, pN1a:? Patient completed 12 cycles of adjuvant chemotherapy with FOLFOX on February 12. On cycle # 8 - 9 of FOLFOX next week with 20% reduction of Oxaliplatin. cycle # 10 -12 without Oxaliplatin because of neurological toxicity. ?? Patient had progression of prostate cancer?in 2017.??He developed bilateral hydronephrosis as well as bilateral pulmonary nodules. He?saw Dr. Cunningham and started on androgen ablation therapy. He had?bilateral ureteral stents and has no flank pain or hematuria. Follow-up CT scan last month showed improvement or decrease in size of his pulmonary nodules as well as hydronephrosis and decrease in his PSA. ? Current treatment:?ELIGARD?(?hormone sensitive;?metastatic prostate cancer?) ? Interim history:?Mr. Smith?is doing well with androgen ablation therapy?for his metastatic prostate cancer?is stable.?His PSA is slowly rising,?but he has no bone pain, cough or shortness of breath. His weight and appetite is stable. ? He had?several urethral dilation and stent placement?from stricture secondary to radiation therapy. He now has a indwelling Guthrie catheter because of bladder outlet obstruction??He has no?symptom of anemia, lightheadedness,?or shortness of breath.?He continues to have moderate fatigue from anemia and after his ELIGARD injection. Bone density test showed mild osteopenia on his hips. Normal density in the spine. ? All medications AND allergies updated?and?reviewed by me. ?? REVIEW OF SYSTEMS ?? Appetite:good Energy level: Fair? Denies fevers. Resp:denies cough or sob Cardiac:denies chest pain/palpitations GI:denies abd pain, n/v, ostomy functioning well :denies dysuria/hematuria -did have an episode of hematuria-has been seen by urology Extrem:denies pain to back/bones/joints Neuro:tingling/numbness to finger tips/soles of feet Skin:denies rashes Heme:denies bleeding ?? Past medical history, appointments, medications, allergies reviewed. No changes. ?? EXAM: APPEARANCE Well appearing, alert, in no acute distress, well-hydrated, well nourished. Performance status?90% BP 155/76 Pulse 80 Temp 97 Ht 5' 7.323 (1.71m) Wt 198 lb (89.8kg) SpO2 97% BMI 30.71 kg/(m2). HEART RRR with normal S1 and S2, no murmurs, no gallops, no JVD appreciated LUNG clear to auscultation LYMPH NODES No cervical lymphadenopathy, No supraclavicular lymphadenopathy and No axillary lymphadenopathy. ABDOMEN bowel sounds normoactive, no bruits, soft, non-tender, non-distended, without organomegaly or palpable masses.?Colostomy?normal?functioning. EXTREMITIES No edema NEURO Awake, alert and oriented x 3, Normal gait and No involuntary motions. SKIN Skin color, texture, turgor normal, no suspicious rashes or lesions ?? LABS:? Component Latest Ref Rng AND Units 11/17/2021 WBC 3.70 - 11.00 k/uL 6.34 RBC 4.20 - 6.00 m/uL 4.67 Hemoglobin 13.0 - 17.0 g/dL 12.4 (L) Hematocrit 39.0 - 51.0 % 38.4 (L) MCV 80.0 - 100.0 fL 82.2 MCH 26.0 - 34.0 pg 26.6 MCHC 30.5 - 36.0 g/dL 32.3 RDW-CV 11.5 - 15.0 % 15.6 (H) Platelet Count 150 - 400 k/uL 225 MPV 9.0 - 12.7 fL 9.6 Neut% % 62.9 Abs Neut (ANC) 1.45 - 7.50 k/uL 3.99 Lymph% % 18.5 Abs Lymph 1.00 - 4.00 k/uL 1.17 Miner% % 9.0 Abs Miner <0.87 k/uL 0.57 Eosin% % 8.4 Abs Eosin <0.46 k/uL 0.53 (H) Baso% % 0.6 Abs Baso <0.11 k/uL 0.04 Immature Gran % % 0.6 IMMATURE GRANS (ABS) <0.10 k/uL 0.04 NRBC /100 WBC 0.0 Absolute nRBC <0.01 k/uL <0.01 DTYPE Auto Iron 41 - 186 ug/dL 45 TIBC 232 - 386 ug/dL 326 Transferrin Saturation 15.0 - 57.0 % 13.8 ( (more content not included)... [facility] Progress note 11-17-2021 Note Date & Type Note Facility 11-17-2021 Note HNO ID: [id number] Author: YAN Harry) Service: ? Author Type: Planer Offbearer Type: Progress Notes Filed: 11/17/2021 12:04 PM Note Text: Radiology Service Progress Note PATIENT NAME: Vilma Smith DATE OF SERVICE: November 17, 2021 TIME: 12:03 PM PATIENT IDENTITY VERIFICATION COMPLETED USING TWO (2) IDENTIFIERS: Name and Date of confirmed by patient verbally. FALL SCREENING: Has the patient had 2 falls in the last year or 1 fall with injury or currently using an Ambulatory Assistive Device (Walker, Cane, Wheelchair, Crutches, etc.)? No PATIENT GENDER DATA: Male PATIENT RELEVANT IMPLANT DATA REVIEWED: Yes RADIOLOGY DEPARTMENT: CT; Exam(s) Completed: Chest PERIPHERAL IV DATA: Not applicable SIGNED BY: RT Gurpreet(Titus) November 17, 2021 12:03 PM [facility] History of Present illness Narrative 11-17-2021 RT Piero(R) - 11/17/2021 10:20 AM EDT Note Date & Type Note Facility 11-17-2021 History of Presen t illness Narrative Radiology Service Progress Note PATIENT NAME: Vilma Smith DATE OF SERVICE: November 17, 2021 TIME: 12:03 PM PATIENT IDENTITY VERIFICATION COMPLETED USING TWO (2) IDENTIFIERS: Name and Date of confirmed by patient verbally. FALL SCREENING: Has the patient had 2 falls in the last year or 1 fall with injury or currently using an Ambulatory Assistive Device (Walker, Cane, Wheelchair, Crutches, etc.)? No PATIENT GENDER DATA: Male PATIENT RELEVANT IMPLANT DATA REVIEWED: Yes RADIOLOGY DEPARTMENT: CT; Exam(s) Completed: Chest PERIPHERAL IV DATA: Not applicable SIGNED BY: RT Gurpreet(Titus) November 17, 2021 12:03 PM documented in this encounter [facility] History of Past illness Narrative 07-27-2013 Note Date & Type Note Facility documented as of this encounter (statuses as of 11/18/2021) [facility] Evaluation note Note Date & Type Note Facility documented in this encounter [facility] Reason for Referral Specialty Diagnoses / Procedures Referred By Jerald zendejas Referred To Contact CT IMAGING Diagnoses Lung nodules Malignant neoplasm of prostate (HCC) 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) Procedures CT CHEST WO IVCON CAT SCAN OF CHEST Paco Edmonds MD [address] [place] [address] Ct Imaging Referral ID Status Reason Start Date Expiration Date V isits Requested Visits Authorized [id number] Closed Auto-Generate d Referral 11/11/2021 06/12/2022 1 1 Advance Directives No Advanced Directives Records FoundDocuments on File Type Date Recorded 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 Advance Directive(s) 06/21/2017 9:26 AM Advance Directive(s) 06/15/2017 8:37 AM Advance Directive(s) 05/10/2013 9:57 AM Summary Purpose Family History No Family History Records Found Additional Source Comments Source Comments (unrecognize d section and content) In the event this informatio n is protected by the Federal Confidentiality of Alcohol and Drug Abuse Patient Records regulations: The Federal rules restrict any use of the information to criminally investigate or prosecute any alcohol or drug abuse patient.[facility] Reason for Visit (unrecogniz ed section and content) Specialty Diagnoses / Procedures Referred By Jerald zendejas Referred To Contact CT IMAGING Diagnoses Lung nodules Malignant neoplasm of prostate (HCC) 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 This clinical summary was aggregated from multiple sources. Caution should be exercised in using it in the provision of clinical care. This summary normalizes information from multiple sources, and as a consequence, information in this document may materially change the coding, format and clinical context of patient data. In addition, data may be omitted in some cases. CLINICAL DECISIONS SHOULD BE BASED ON THE PRIMARY CLINICAL RECORDS. [employer] provides no warranty or guarantee of the accuracy or completeness of information in this document.
== END | disposition home or self-care (01) ==
LOC: MFPLAB 14:45
PROVIDERS: PCP Family Medicine; Visit Provider Urology
DX: C61 Malignant neoplasm of prostate (principal)
CPT/HCPCS: 36415; 84153

== ENCOUNTER → 2023-06-10 | Outpatient (CLI) | payer MEDICARE, OTHER, SELFPAY ==
--- NOTE | 2023-06-10 08:20 | NM_ITS ---
CLINICAL: 78-year-old male with history of primary prostate carcinoma. WHOLE BODY 99m Tc MDP RADIONUCLIDE BONE SCINTIGRAPHY COMPARISON: None available FINDINGS: Following the intravenous administration of 27.2 mCi of 99m Tc MDP, whole body bone images reveal: 1. Increased radiopharmaceutical concentration is demonstrated in the lower cervical spine posteriorly on the left and right, the fifth lumbar vertebra and first sacral segment, the left and to lesser extent right hip articulation, the left ankle and left forefoot, the acromioclavicular compartment of the right shoulder. 2. Facilitated uptake is noted in the medial and lateral femoral and tibial components, distal tibial component of the recently operated left knee arthroplasty. 3. The remaining skeletal structures are scintigraphically unremarkable with normal-appearing renal images and urinary bladder activity identified. NM/Bone Scan Whole Body IMPRESSION: 1. The increase in tracer uptake defined in the cervical and lumbar spine, sacrum, bilateral hips, the left ankle, the left forefoot and right shoulder is most consistent with degenerative arthrosis. Plain film radiography correlation may be of benefit in the region of the left hip. 2. Enhanced radiotracer visualized in the left knee arthroplasty is most consistent with normal postsurgical change in the absence of pain and discomfort. 3. There is no definitive scintigraphic evidence of skeletal metastatic disease on the current examination. Electronically Signed: Raghav Raymundo DO at 9:16 EST ,
--- OUTSIDE RECORDS SUMMARY | 2023-06-10 08:23 | XMS RPT_ITS | CCD ---
Author Name Unknown Address [address] [place] [address] Organization [facility] Care Team Providers Care N[place] Brakeman Name Role Phone Rigo Manrique MD Primary Care Provider Siddharth Navarro Unavailable PACO EDMONDS Referring Unavailable [...] Melatonin; Translations: [MELATONIN] Drug Allergy 08-08-2013 Rash [facility] (2 sources) Meperidine; Translations: [MEPERIDINE (PF)] Drug Allergy 07-17-2013 Vomiting [facility] Medications Completed/Discontinued Medications Medication Drug Class(es) Dates [...] Provider Facility Start: 05-26-2022 End: 05-26-2022 ambulatory [facility] Facility:[facility] Start: 11-19-2021 End: 11-19-2021 ambulatory [facility] Facility:[facility] Start: 11-17-2021 End: 11-17-2021 ambulatory [facility] Facility:[facility] Start: 11-17-2021 End: 11-17-2021 Subsequent hospital visit by physician [facility] (I-Stat) Work Phone: Cat Scan Procedures Date Procedure Procedure Detail Performing Clinician Start: 11-17-2021 Ct thorax w/o contra st material Paco Edmonds MD Work Phone: Start: 09-28-[address] depression screening assessment [address] (I-Stat) Work Phone: Plan of Treatment Date Care Activity Detail Author Start: 11-17-2024 DIABETES SCREEN DIABETES SCREEN [facility] Start: 01-14-2022 Influenza vaccination INFLUENZA (#1) [facility] Start: 05-16-2021 ADVANCE DIRECTIVE DISCUSSION ADVANCE DIRECTIVE DISCUSSION [facility] Start: 09-28-2018 Adult depression screening assessment DEPRESSION SCREENING [facility] Start: 01-14-2008 PNEUMOCOCCAL: 65+ (1 - PCV) PNEUMOCOCCAL: 65+ (1 - PCV) [facility] Start: 1993 SHINGRIX VACCINE (1 of 2) SHINGRIX VACCINE (1 of 2) [facility] Start: 1962 Urine microalbumin profile DTAP,TDAP,TD (1 - Tdap) [facility] Start: 1961 ANNUAL PCP TEAM INDUSTRIAL CHEMICALS SUPERVISOR ANETA DISEASE VISIT ANNUAL PCP TEAM CHRONIC DISEASE VISIT [facility] Start: 1961 BP CONTROLLED (<130/80) BP CON TROLLED (<130/80) [facility] Ct thorax w/o contra st material CT CHEST WO IVCON Radiology Routine Lung nodules Malignant neoplasm of prostate (HCC) 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) 11/17/2021 10:45 AM EDT [facility] Immun[facility] Immunization Date Immunization Notes Care Provider Alex clemons 03-12-2015 influenza, high dose seasonal, preservative-free Ct (I-Stat) Work Phone: [facility] Payers Date Payer Category Payer Private Health Insurance [facility] AARP SUPPLEMENT [id number] 2012-Present [phone] [address] [place] [address] Indemnity [id number] 2012 Unknown [id number] 2007 Medicare MEDICARE MEDICAR E A AND B [id number] 2007-Present [phone] [place] [address] Medicare [id number] 2007 Medicare [id number] Social History Date Type Detail Facility Start: 04-30-2013 Tobacco smoking stat [facility] Never smoked tobacco [facility] Start: 04-30-2013 Tobacco use and exposure Smoke less tobacco non-user [facility] Start: 05-13-2021 Alcohol intake Current drinke r of alcohol (finding) [facility] Start: 06-17-2016 History SDOH Alcohol Comment rare [facility] Start: 1945 Sex Assigned At Male [facility] Start: 11-07-2021 End: 11-17-2021 Exposure to SARS-CoV-2 (event) Not sure [facility] Progress note 05-26-2022 Note Date & Type Note Facility 05-26-2022 Note HNO ID: [id number] Author: Paco Edmonds MD Service: ? Author Type: Physician Type: Progress Notes Filed: 05/27/2022 10:53 AM Note Text: Hematology and Medical Oncology PATIENT NAME: Vilma Smith. CLINIC NO: [id number]. ATTENDING PHYSICIAN: Paco Edmonds MD. DATE OF [...] Abs Lymph 1.00 - 4.00 k/uL 1.25 Hays% % 8.7 Abs Hays <0.87 k/uL 0.54 Eosin% % 5.6 Abs [...] - 105 mmol (more content not included)... [facility] Progress note 11-19-2021 Note Date & Type Note Facility 11-19-2021 Note HNO ID: [id number] Author: Paco Edmonds MD Service: ? Author Type: Physician Type: Progress Notes Filed: 11/20/2021 9:00 AM Note Text: Hematology and Medical Oncology PATIENT NAME: Vilma Smith. CLINIC NO: [id number]. ATTENDING PHYSICIAN: Paco Edmonds MD. DATE OF [...] Abs Lymph 1.00 - 4.00 k/uL 1.17 Hays% % 9.0 Abs Hays <0.87 k/uL 0.57 Eosin% % 8.4 Abs [...] Type Note Facility 11-17-2021 Note HNO ID: [id number] Author: YAN Harry) Service: ? Author Type: Pediatric Dental Assistant Type: Progress Notes Filed: 11/17/2021 12:04 PM [...] RT Gurpreet(Titus) November 17, 2021 12:03 PM [facility] History of Present illness Narrative 11-17-2021 [...] 2021 12:03 PM documented in this encounter [facility] History of Past illness Narrative 07-27-2013 Note Date & Type Note Facility documented as of this encounter (statuses as of 11/18/2021) [facility] Evaluation note Note Date & Type Note Facility documented in this encounter [facility] Reason for Referral Specialty Diagnoses / Procedures Referred By Jerald zendejas Referred To Contact CT IMAGING Diagnoses Lung nodules Malignant neoplasm of prostate (HCC) 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) Procedures CT CHEST WO IVCON CAT SCAN OF CHEST Paco Edmonds MD [address] [place] [address] Ct Imaging Referral ID Status Reason Start Date Expiration Date V isits Requested Visits Authorized [id number] Closed Auto-Generate d Referral 11/11/2021 06/12/2022 1 1 Advance Directives No Advanced Directives Records FoundDocuments on File Type Date Recorded Patient Dynamics Ax Solution Architect Expl anation Advance Directive(s) 06/21/2017 9:26 AM [...] or prosecute any alcohol or drug abuse patient.[facility] Reason for Visit (unrecogniz ed section and content) Specialty Diagnoses / Procedures Referred By Jerald zendejas Referred To Contact CT IMAGING Diagnoses Lung nodules Malignant neoplasm of prostate (HCC) 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) Procedures CT CHEST WO IVCON CAT SCAN OF CHEST Paco Edmonds MD [address] [place] [address] Ct Imaging Referral ID Status Reason Start Date Expiration Date V isits Requested Visits Authorized [id number] Closed Auto-Generate d Referral 11/11/2021 06/12/2022 1 [...] BE BASED ON THE PRIMARY CLINICAL RECORDS. [employer] provides no warranty or guarantee of the accuracy or completeness of information in this document.
== END | disposition home or self-care (01) ==
LOC: NM 08:20
PROVIDERS: PCP Family Medicine; Referring Provider Urology; Visit Provider Urology
DX: C61 Malignant neoplasm of prostate (principal)
CPT/HCPCS: 78306; A9503

== ENCOUNTER → 2023-07-06 | Outpatient (CLI) | payer MEDICARE, OTHER, SELFPAY ==
--- OUTSIDE RECORDS SUMMARY | 2023-07-06 12:06 | XMS RPT_ITS | CCD ---
Author Name Unknown Address [address] [place] [address] Organization [facility] Care Team Providers Care Rn Managed Care Name Role Phone Rigo Manrique MD Primary [...] Melatonin; Translations: [MELATONIN] Drug Allergy 08-08-2013 Rash [facility] (2 sources) Meperidine; Translations: [MEPERIDINE (PF)] Drug Allergy 07-17-2013 Vomiting [facility] Medications Completed/Discontinued Medications Medication Drug [...] Provider Facility Start: 05-26-2022 End: 05-26-2022 ambulatory [facility] Facility:[facility] Start: 11-19-2021 End: 11-19-2021 ambulatory [facility] Facility:[facility] Start: 11-17-2021 End: 11-17-2021 ambulatory [facility] Facility:[facility] Start: 11-17-2021 End: 11-17-2021 Subsequent hospital visit by physician Ct [facility] Wstr (I-Stat) Work Phone: Cat Scan Procedures Date Procedure Procedure Detail Performing Clinician Start: 11-17-2021 Ct thorax w/o contra st material Paco Edmonds MD Work Phone: Start: 09-28-[address] assessment [address] (I-Stat) Work Phone: Plan of Treatment Date Care Activity Detail Author Start: 11-17-2024 DIABETES SCREEN DIABETES SCREEN [facility] Start: 01-14-2022 Influenza vaccination INFLUENZA (#1) [facility] Start: 05-16-2021 ADVANCE DIRECTIVE DISCUSSION ADVANCE DIRECTIVE DISCUSSION [facility] Start: 09-28-2018 Adult depression screening assessment DEPRESSION SCREENING [facility] Start: 01-14-2008 PNEUMOCOCCAL: 65+ (1 - PCV) PNEUMOCOCCAL: 65+ (1 - PCV) [facility] Start: 1993 SHINGRIX VACCINE (1 of 2) SHINGRIX VACCINE (1 of 2) [facility] Start: 1962 Urine microalbumin profile DTAP,TDAP,TD (1 - Tdap) [facility] Start: 1961 ANNUAL PCP 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 ANETA DISEASE VISIT ANNUAL PCP TEAM CHRONIC DISEASE VISIT [facility] Start: 1961 BP CONTROLLED (<130/80) BP CON TROLLED (<130/80) [facility] Ct thorax w/o contra st material CT CHEST WO IVCON Radiology Routine Lung nodules Malignant neoplasm of prostate (HCC) 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) 11/17/2021 10:45 AM EDT [facility] Immunizations Immunization Date Immunization Notes Care Provider Alex clemons 03-12-2015 influenza, high dose seasonal, preservative-free Ct (I-Stat) Work Phone: [facility] Payers Date Payer Category Payer Private Health Insurance [facility] AARP SUPPLEMENT [id number] 2012-Present [phone] [address] [place] [address] Indemnity [id number] 2012 Unknown [id number] 2007 Medicare MEDICARE MEDICAR E A AND B [id number] 2007-Present [phone] [place] [address] Medicare [id number] 2007 Medicare [id number] Social History Date Type Detail Facility Start: 04-30-2013 Tobacco smoking stat [facility] Never smoked tobacco [facility] Start: 04-30-2013 Tobacco use and exposure Smoke less tobacco non-user [facility] Start: 05-13-2021 Alcohol intake Current drinke r of alcohol (finding) [facility] Start: 06-17-2016 History SDOH Alcohol Comment rare [facility] Start: 1945 Sex Assigned At Male C [facility] Start: 11-07-2021 End: 11-17-2021 Exposure to SARS-CoV-2 (event) Not sure [facility] Progress note 05-26-2022 Note Date & Type Note Facility 05-26-2022 Note HNO ID: [id number] Author: Paco Edmonds MD Service: ? Author Type: Physician Type: Progress Notes Filed: 05/27/2022 10:53 AM Note Text: Hematology and Medical Oncology PATIENT NAME: Vilma Smith. CLINIC NO: [id number]. ATTENDING PHYSICIAN: Paco Edmonds MD. DATE OF [...] Abs Lymph 1.00 - 4.00 k/uL 1.25 Bladen% % 8.7 Abs Bladen <0.87 k/uL 0.54 Eosin% % 5.6 Abs [...] - 105 mmol (more content not included)... [facility] Progress note 11-19-2021 Note Date & Type Note Facility 11-19-2021 Note HNO ID: [id number] Author: Paco Edmonds MD Service: ? Author Type: Physician Type: Progress Notes Filed: 11/20/2021 9:00 AM Note Text: Hematology and Medical Oncology PATIENT NAME: Vilma Smith. CLINIC NO: [id number]. ATTENDING PHYSICIAN: Paco Edmonds MD. DATE OF SERVICE:11/19/2021. Diagnosis:?History of rectal cancer; and metastatic prostate cancer?with lung metastasis. ? HPI: iVlma Smith is a 76?year old male with?metastatic [...] Abs Lymph 1.00 - 4.00 k/uL 1.17 Bladen% % 9.0 Abs Bladen <0.87 k/uL 0.57 Eosin% % 8.4 Abs [...] Type Note Facility 11-17-2021 Note HNO ID: [id number] Author: YAN Harry) Service: ? Author Type: Applications Support Specialist Type: Progress Notes Filed: 11/17/2021 12:04 PM [...] RT Gurpreet(Titus) November 17, 2021 12:03 PM [facility] History of Present illness Narrative 11-17-2021 RT [...] 2021 12:03 PM documented in this encounter [facility] History of Past illness Narrative 07-27-2013 Note Date & Type Note Facility documented as of this encounter (statuses as of 11/18/2021) [facility] Evaluation note Note Date & Type Note Facility documented in this encounter [facility] Reason for Referral Specialty Diagnoses / Procedures Referred By Jerald zendejas Referred To Contact CT IMAGING Diagnoses Lung nodules Malignant neoplasm of prostate (HCC) 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) Procedures CT CHEST WO IVCON CAT SCAN OF CHEST Paco Edmonds MD [address] [place] [address] Ct Imaging Referral ID Status Reason Start Date Expiration Date V isits Requested Visits Authorized [id number] Closed Auto-Generate d Referral 11/11/2021 06/12/2022 1 1 Advance Directives No Advanced Directives Records FoundDocuments on File Type Date Recorded Patient Reporting Lead Expl anation Advance Directive(s) 06/21/2017 9:26 AM [...] or prosecute any alcohol or drug abuse patient.[facility] Reason for Visit (unrecogniz ed section and content) Specialty Diagnoses / Procedures Referred By Jerald zendejas Referred To Contact CT IMAGING Diagnoses Lung nodules Malignant neoplasm of prostate (HCC) 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) Procedures CT CHEST WO IVCON CAT SCAN OF CHEST Paco Edmonds MD [address] [place] [address] Ct Imaging Referral ID Status Reason Start Date Expiration Date V isits Requested Visits Authorized [id number] Closed Auto-Generate d Referral 11/11/2021 06/12/2022 1 [...] BE BASED ON THE PRIMARY CLINICAL RECORDS. [employer] provides no warranty or guarantee of the accuracy or completeness of information in this document.
[2023-07-06 15:25] LABS: ALB/GLOB Ratio 0.8 RATIO (0.9-2.4); AST(SGOT) 14 U/L (15-37); Alanine Aminotransfer ALT/SGPT 15 U/L (16-61); Albumin, Serum 3.5 g/dL (3.2-5.0); Alkaline Phosphatase 86 U/L (45-117); Anion Gap 5 (5-15); BUN 35 mg/dL (7-18); BUN/Creat Ratio 23.5 RATIO (10-20); Calcium,Total 9.8 mg/dL (8.5-10.1); Chloride 110 mmol/L (98-107); Cholesterol 167 mg/dL (200); Creatinine, Serum 1.49 mg/dL (0.70-1.30); EST Glomerular Filtration Rate 48 mL/min (>60); Est Glom Filt Rate - Afr Amer 58 mL/min (>60); Globulin 4.4 g/dL (2.2-4.2); Glucose 112 mg/dL (74-106); High Density Lipoprotein 40 mg/dL; Potassium 4.4 mmol/L (3.5-5.1); Protein, Total 7.9 g/dL (6.4-8.2); Sodium Level 139 mmol/L (136-145); Triglycerides 367 mg/dL; Very Low Density Lipoprotein 73 mg/dL (5-40)
[2023-07-06 16:15] LABS: Hemoglobin A1c 6.2 % (3.8-5.6)
== END | disposition home or self-care (01) ==
LOC: MFPLAB 11:46
PROVIDERS: PCP Family Medicine; Visit Provider Family Medicine
DX: E11.9 Type 2 diabetes mellitus without complications (principal)
CPT/HCPCS: 36415; 80053; 80061; 83036

== ENCOUNTER → 2023-08-09 | Outpatient (CLI) | payer MEDICARE, OTHER, SELFPAY | END | disposition home or self-care (01) | LOC: LAB 14:21 | PROVIDERS: PCP Family Medicine; Referring Provider Urology; Visit Provider Urology | DX: C61 Malignant neoplasm of prostate (principal) | CPT/HCPCS: 36415; 84153 ==

== ENCOUNTER 2023-08-12 12:30 | Outpatient (RCR) | payer MEDICARE, OTHER, SELFPAY ==
--- NOTE | 2023-05-11 17:42 | HP.PTEVAL ---
Patient's Visit Information Visit Information Visit Information: VILMA SAM is a 78 year old M referred to Physical Therapy by Dr. Jordan Garcia DO with a diagnosis of UNILATERAL PRIMARY OSTEORTHRITIS ,LEFT KNEE. Date of Evaluation: 05/11/23 Physical Therapist: Bernardo Villagomez, PT, Cert MDT, OCS Visit Plan Frequency: 2x /Week Duration: 6 Weeks Plan: S/P TKA 02/15/23 AFTER SURGERY S/P COLON SURGERY WITH COLOSTOMY REVISION PT INTERVETIONS ROM/FLEXABLITY KNEE ,STRENGTHENING QUADS/HAMS/HIP , FUNCTIONAL STRENGTHENING ,BALANCE TRAINING AND ENDURANCE PROGRAM Subjective Subjective: This 78 y/o male presents to physical therapy with left TKA Feb [address] Garcia at [facility]. Patient developed bowel obstruction and had exploratory surgery next day and had colon surgery with colostomy bag with patient was in hospital 45 days. Patient eventually was transferred to TCU for rehab for ~ 3weeks then d/c to home Apr 01 . Patient started [facility] PT/OT ~3weeks . Patient needed assist with dressing and ADLS . Patient 1 story home with 2 steps with rail. Patient uses walk in shower with grab rails. Patient used FWW trying to transition to cane. Patient sleeping okay. Patient taking teylonal . Patient denies parastshia/tingling . 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 Patient condition affects QOL and function walking. Patient goals to decrease pain. Patient seen DR Garcia last week. Payient has stage 4 prostrate CA Pain Left Knee: Pain Intensity (Out of 10): 1 Pain Intensity Range: 10 Objective Objective: POSTURE: mild forward posture hips/knees flexed OBSERVATION: colostomy bag ,cathedar SKIN: well approximate GAIT: reciprocal pattern with fww slow chris with hip/knees flexed slight decrease stance time ,also ambulated with cane using 2 point pattern forward posture 2 point pattern slow chris ~ 125 ft became fatigue BALANCE: fair+ with device MMT: ( peak force) quads 20.1 ,hamstrings 15.7 STAIRS: one step at time with rails AROM: supine knee 5-114 degrees GIRTH PATELLA : 42.1 cm 6 ABOVE MID PATELLA: 43.5cm Balance/Special Test Scores CATSIB Score (Max score 120 seconds): 40 Lower Extremity Functional Score: 25 TUG Test Time Seconds: 25.25 WOMAC Total Score: 46 WOMAC Percentatge: 52.0900 Goals Goal 1:: I with HEP for TKA Goal Time Frame: 4-6 Weeks Goal 2:: Patient to improve gait with gait community distance with cane Goal Time Frame: 4-6 Weeks Goal 3:: Patient to improve peak force of quads/hams by 10-15# to improve function amd gait Goal Time Frame: 4-6 Weeks Goal 4:: Patient to improve WOMAC score by 5-10 points to improve function and QOL Goal Time Frame: 4-6 Weeks Goal 5:: Patient to improve LFES score by 5- 10points to improve QOL and function Goal Time Frame: 4-6 Weeks Goal 6:: Patient to improve AROM 0-120 flexion to improve stairs Goal Time Frame: 4-6 Weeks Rehabilitation Potential Physical Therapy Diagnosis: This patient had TKA left side with complication with bowel obstruction which required surgery with weakness ,decrease strength , gait ,balance and endurance thus will benefit from skilled PT Rehabilitation Potential: Good Anticipated Interventions Patient/Client Instruction: Educate patient on: Condition and Plan of Care For the Purpose of:: To decrease pain, To decrease swelling/inflammation, To increase ROM, To improve muscle performance and motor function, To improve ability to perform ADL's, To increase tolerance to activity/condition/position, To improve ability of physical actions for home/community/work/leisure, To improve health of tissue, To decrease soft tissue restriction, To increase flexibility/ROM, To improve endurance, To improve balance and To improve tolerance to ADL's Therapeutic Exercise to Include: Strength training, Endurance training, Balance training, Flexibilty training, Gait and locomotor training, Passive ROM and Active ROM Comment: QUADS/HAMS/HIP For the Purpose of:: To decrease pain, To increase ROM, To improve muscle performance and motor function, To improve ability to perform ADL's, To increase tolerance to activity/condition/position, To improve performance and independence with ADL's, To decrease level of supervision to perform tasks, To improve ability of physical actions for home/community/work/leisure, To improve gait and locomotor functions, To improve health of tissue, To decrease soft tissue restriction, To increase flexibility/ROM, To improve endurance, To improve balance and To improve tolerance to ADL's Text: Thank you for the opportunity to evaluate your patient. For Medicare and Medicare HMO plans, please review the plan of care and approve it. It will need to be FAXED BACK to us at [phone] for Medicare purposes. For Medicare only, by signing this I certify the plan of care. Please let me know if there are questions or concerns regarding this plan of care. Physician Signature: Date:
--- NOTE | 2023-06-16 13:11 | HP.PTREVAL ---
Re-Evaluation Intro: Dr. Jordan Garcia, DO, It has been my pleasure to treat VILMA SAM over the last 10 visits for UNILATERAL PRIMARY OSTEORTHRITIS ,LEFT KNEE. Please see the progress note below for an update on the physical therapy plan of care! Subjective Subjective: Patient had bone scan due to Prostrate CA but negative Patient is feeling better Bee using cane all the time Prostrate CA new medication Objective Objective/Function: POSTURE: mild forward posture hips/knees flexed OBSERVATION: colostomy bag ,cathedar SKIN: well approximate GAIT: reciprocal pattern with fww slow chris with hip/knees flexed slight decrease stance time ,also ambulated with cane using 2 point pattern forward posture 2 point pattern slow chris ~ 100 ft uses in in house BALANCE: fair+ with device MMT: ( peak force) quads 37.8 ,hamstrings 29.5 STAIRS: one step at time with rails AROM: supine knee 5-114 degrees GIRTH PATELLA : 40.2 cm 6 ABOVE MID PATELLA: 41.5cm Plan Plan Plan: S/P TKA 02/15/23 AFTER SURGERY S/P COLON SURGERY WITH COLOSTOMY REVISION PT INTERVETIONS ROM/FLEXABLITY KNEE ,STRENGTHENING QUADS/HAMS/HIP , FUNCTIONAL STRENGTHENING ,BALANCE TRAINING AND ENDURANCE PROGRAM Balance/Gait/Functional tests Balance/Special Test Scores CATSIB Score (Max score 120 seconds): 40 Lower Extremity Functional Score: 28 TUG Test Time Seconds: 25.25 Tug Test: 20-30sec.=variable mobility WOMAC Total Score: 46 WOMAC Percentage: 52.0900 Goals Goals Goal 1:: I with HEP for TKA Goal Time Frame: 4-6 Weeks Goal Progress: Progressing Goal 2:: Patient to improve gait with gait community distance with cane Goal Time Frame: 4-6 Weeks Goal Progress: Progressing Goal 3:: Patient to improve peak force of quads/hams by 10-15# to improve function amd gait Goal Time Frame: 4-6 Weeks Goal Progress: NEW GOAL Goal 4:: Patient to improve WOMAC score by 5-10 points to improve function and QOL Goal Time Frame: 4-6 Weeks Goal Progress: Progressing Goal 5:: Patient to improve LFES score by 5- 10points to improve QOL and function Goal Time Frame: 4-6 Weeks Goal Progress: Progressing Goal 6:: Patient to improve AROM 0-120 flexion to improve stairs Goal Time Frame: 4-6 Weeks Goal Progress: Progressing Anticipated Interventions Anticipated Interventions Patient/Client Instruction: Educate patient on: Condition and Plan of Care For the Purpose of:: To decrease pain, To decrease swelling/inflammation, To increase ROM, To improve muscle performance and motor function, To improve ability to perform ADL's, To increase tolerance to activity/condition/position, To improve ability of physical actions for home/community/work/leisure, To improve health of tissue, To decrease soft tissue restriction, To increase flexibility/ROM, To improve endurance, To improve balance and To improve tolerance to ADL's Therapeutic Exercise to Include: Strength training, Endurance training, Balance training, Flexibilty training, Gait and locomotor training, Passive ROM and Active ROM Comment: QUADS/HAMS/HIP For the Purpose of:: To decrease pain, To increase ROM, To improve muscle performance and motor function, To improve ability to perform ADL's, To increase tolerance to activity/condition/position, To improve performance and independence with ADL's, To decrease level of supervision to perform tasks, To improve ability of physical actions for home/community/work/leisure, To improve gait and locomotor functions, To improve health of tissue, To decrease soft tissue restriction, To increase flexibility/ROM, To improve endurance, To improve balance and To improve tolerance to ADL's Re-Evaluation Ending Re-evaluation ending: Please do not hesitate to contact me at [phone] by phone or if you have questions or concerns regarding this new plan of care! Sincerely, Bernardo Villagomez, PT, Cert MDT, OCS
--- NOTE | 2023-07-15 13:00 | HP.PTREVAL_ITS ---
Re-Evaluation Intro: Dr. Jordan Garcia, DO, It has been my pleasure to treat VILMA SAM over the last 18 visits for UNILATERAL PRIMARY OSTEORTHRITIS ,LEFT KNEE. Please see the progress note below for an update on the physical therapy plan of care! Subjective Subjective: Cont to feel weak with other comorbities with prostate CA More stiffness pain is not as bad Patient uses cane 100% in house but commumity fww Objective Objective/Function: POSTURE: mild forward posture hips/knees flexed OBSERVATION: colostomy bag ,cathedar * Patient will continue to benefit from skilled PT due to comorbities with CA although base on ROM and strength has been progressing* SKIN: well approximate GAIT: reciprocal pattern with fww slow chris with hip/knees flexed slight decrease stance time ,also ambulated with cane using 2 point pattern forward posture 2 point pattern slow chris ~ 100 ft uses in in house BALANCE: fair+ with device MMT: ( peak force) quads 48.2 ,hamstrings 34.5 STAIRS: one step at time with rails AROM: supine knee 5-120 degrees EDEMA: mild kneeP Plan Plan Plan: S/P TKA 02/15/23 AFTER SURGERY S/P COLON SURGERY WITH COLOSTOMY REVISION PROSTATE CA PT INTERVETIONS ROM/FLEXABLITY KNEE ,STRENGTHENING QUADS/HAMS/HIP , FUNCTIONAL STRENGTHENING ,BALANCE TRAINING AND ENDURANCE PROGRAM Balance/Gait/Functional tests Balance/Special Test Scores CATSIB Score (Max score 120 seconds): 40 Lower Extremity Functional Score: 28 TUG Test Time Seconds: 25.25 Tug Test: 20-30sec.=variable mobility WOMAC Total Score: 46 WOMAC Percentage: 52.0900 Goals Goals Goal 1:: I with HEP for TKA Goal Time Frame: 4-6 Weeks Goal Progress: Progressing Goal 2:: Patient to improve gait with gait community distance with cane Goal Time Frame: 4-6 Weeks Goal Progress: Progressing Goal 3:: Patient to improve peak force of quads/hams by 10-15# to improve function amd gait Goal Time Frame: 4-6 Weeks Goal Progress: NEW GOAL Goal 4:: Patient to improve WOMAC score by 5-10 points to improve function and QOL Goal Time Frame: 4-6 Weeks Goal Progress: Progressing Goal 5:: Patient to improve LFES score by 5- 10points to improve QOL and function Goal Time Frame: 4-6 Weeks Goal Progress: Progressing Goal 6:: Patient to improve AROM 0-120 flexion to improve stairs Goal Time Frame: 4-6 Weeks Goal Progress: Progressing Anticipated Interventions Anticipated Interventions Patient/Client Instruction: Educate patient on: Condition and Plan of Care For the Purpose of:: To decrease pain, To decrease swelling/inflammation, To increase ROM, To improve muscle performance and motor function, To improve ability to perform ADL's, To increase tolerance to activity/condition/position, To improve ability of physical actions for home/community/work/leisure, To impro ve health of tissue, To decrease soft tissue restriction, To increase flexibility/ROM, To improve endurance, To improve balance and To improve tolerance to ADL's Therapeutic Exercise to Include: Strength training, Endurance training, Balance training, Flexibilty training, Gait and locomotor training, Passive ROM and Active ROM Comment: QUADS/HAMS/HIP For the Purpose of:: To decrease pain, To increase ROM, To improve muscle performance and motor function, To improve ability to perform ADL's, To increase tolerance to activity/condition/position, To improve performance and independence with ADL's, To decrease level of supervision to perform tasks, To improve ability of physical actions for home/community/work/leisure, To improve gait and locomotor functions, To improve health of tissue, To decrease soft tissue restriction, To increase flexibility/ROM, To improve endurance, To improve balance and To improve tolerance to ADL's Re-Evaluation Ending Re-evaluation ending: Please do not hesitate to contact me at [phone] by phone or if you have questions or concerns regarding this new plan of care! Sincerely, Bernardo Villagomez, PT, Cert MDT, OCS
--- NOTE | 2023-08-12 13:01 | HP.PTDCSUM ---
Discharge Summary D/C summary: It has been my pleasure to treat VILMA SAM referred by Dr. Jordan Garcia DO, with the diagnosis of UNILATERAL PRIMARY OSTEORTHRITIS ,LEFT KNEE for a total of 26 visit(s). Discharge Date: 08/12/23 Please see the following information for a summary of their discharge status. Subjective Subjective: Plan to have surgery for stents in Kidneys August 25 and would like to be D/C Due to medical problems complex influences condition Pain Left Knee: Pain Intensity (Out of 10): 4 Overall Improvement % Improvement: 50 Objective Objective/Function: POSTURE: mild forward posture hips/knees flexed OBSERVATION: colostomy bag ,cathedar GAIT: ambulate with cane using 2 point pattern forward posture 2 point pattern slow chris ~ 150 ft uses in in house with cane and mainly in house uses fww like shoppongh BALANCE: fair+ with device MMT: ( peak force) quads 48.7 ,hamstrings 37.5 ,hip flexion 34 which is fairly equal to right STAIRS: one step at time with rails AROM: supine knee 5-120 degrees Goals Goal 1:: I with HEP for TKA Goal Progress: Goal Met Goal 2:: Patient to improve gait with gait community distance with cane Goal Progress: Goal Met Goal 3:: Patient to improve peak force of quads/hams by 10-15# to improve function amd gait Goal Progress: NEW GOAL Goal 4:: Patient to improve WOMAC score by 5-10 points to improve function and QOL Goal Progress: Progressing Goal 5:: Patient to improve LFES score by 5- 10points to improve QOL and function Goal Progress: Goal Met Goal 6:: Patient to improve AROM 0-120 flexion to improve stairs Goal Progress: Goal Met Plan Plan: D/C D/C Information Discharge Comments: HEP d/c sentence: If there are questions or concerns regarding this patient's physical therapy, please feel free to call me at [phone]. Thank you for the referral of this patient. Sincerely, Bernardo Villagomez, PT, Cert MDT, OCS Balance/Gait/Functional tests Balance/Special Test Scores CATSIB Score (Max score 120 seconds): 40 Lower Extremity Functional Score: 38 TUG Test Time Seconds: 21.2 Tug Test: 20-30sec.=variable mobility WOMAC Total Score: 22 WOMAC Percentage: 77.0900 Improvement % Improvement: 50
== END 2023-08-12 19:00 | disposition home or self-care (01) ==
LOC: PT 12:30
PROVIDERS: PCP Family Medicine; Referring Provider Orthopaedic Surgery; Visit Provider Orthopaedic Surgery
DX: M17.12 Unilateral primary osteoarthritis, left knee (principal)
CPT/HCPCS: 97110; 97162; 97530

== ENCOUNTER 2023-08-26 07:10 | Day surgery (SDC) | payer MEDICARE, OTHER, SELFPAY ==
[2023-08-26] VITALS (7 sets, daily range): BP systolic 123–158; BP diastolic 64–79; PULSE 67–73; RESP 14–18; TEMP 36.1–36.6; O2SAT 97–99; BMI 25.6
[2023-08-26] MEDS: Lactated Ringers 1,000 ML 15 ML IV (07:53)
[2023-08-26 08:15] LABS: Bedside Glucose 130 mg/dL (74-106)
--- NOTE | 2023-08-26 08:27 | HP.PCM_ITS ---
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 [facility] Medical History Cancer Chronic pain COVID Diabetes Elevated PSA Gout High cholesterol History of anal cancer History of Clostridium difficile infection HTN (hypertension) Indwelling urethral catheter present Non-smoker Torn meniscus Home Medications losartan 100 mg tablet 100 mg PO DAILY bp 06/01/13 [History Last Taken 08/26/23] metoprolol succinate 100 mg tablet,extended release 24 hr 100 mg PO DAILY bp 06/01/13 [History Last Taken 08/26/23] metformin 500 mg tablet,extended release 24 hr 500 mg PO DAILY DIABETES 04/25/20 [History Last Taken 03/05/23] rosuvastatin 5 mg tablet 5 mg PO DAILY CHOLESTEROL 12/16/21 [History Last Taken 03/04/23] amlodipine 10 mg tablet 10 mg PO DAILY BP 01/07/23 [History Last Taken 08/26/23] acetaminophen 500 mg tablet 1,000 mg (2 x 500 mg) PO Q6H PRN pain #100 tabs 02/16/23 [Rx Last Taken Unknown] hydralazine 25 mg tablet 25 mg PO TID 30 days #90 tabs 03/23/23 [Rx Last Taken Unknown] enzalutamide 40 mg tablet (Xtandi) 160 mg PO QHS 08/17/23 [History Last Taken Unknown] Allergy/AdvReac Type Severity Reaction Status Date / Time hydromorphone [From Dilaudid] AdvReac Other Verified 08/26/23 07:18 meperidine [From Demerol] AdvReac Nausea/Vom/ Verified 08/26/23 07:18 Diarrhea Surgical History History of appendectomy History of back surgery History of cholecystectomy History of removal of Port-a-Cath History of total left knee replacement Hx of cataract surgery Hx of colectomy Hx of colonoscopy Hx of cystoscopy Hx of cystoscopy Hx of cystoscopy Hx of cystoscopy (~01/23/20) Hx of cystoscopy (~05/28/20) Hx of cystoscopy Hx of cystoscopy Hx of cystoscopy Hx of dilation of urethra Hx of left knee surgery S/P total knee arthroplasty Social History household members: spouse Smoking Status: Never smoker alcohol intake: never substance use type: does not use Vital Signs Vital Signs Vital Signs: 08/26/23 07:31 08/26/23 07:31 Temperature 97.8 F Temperature Source Temporal Pulse Rate 73 Respiratory Rate 16 Respiratory Pattern Normal Blood Pressure 158/71 H Blood Pressure Mean 100 Blood Pressure Source Monitor Blood Pressure Position Sitting Blood Pressure Location Right Arm Pulse Ox 99 Oxygen Delivery Method Room Air Weight Weight: 81 kg Body Mass Index (BMI) 25.6 Results Lab / Micro Data Labs: Laboratory Results - last 24 hr 08/26/23 07:37: POC Glucose 130 H
[2023-08-26] MEDS: Cefazolin 2 GM in 0.9% Normal Saline (100mL Bag) 100 ML IV (08:56)
--- NOTE | 2023-08-26 08:59 | DCINST_ITS ---
Discharge Instructions Diet Discharge Diet: No restrictions Activity Discharge Activity: Return to Normal Activity and May Not Drive (while taking narcotic pain medications.) Dressing / Incision Call your doctor if you observe: Fever of 101 or Higher Follow Up Care Please Follow Up With: Siddharth Navarro MD When: Call [phone] for an appointment Test Results: Test results from this visit will be discussed in further detail at your follow- up appointment, if applicable. Discharge Plan Admission Primary Reason for Your Visit: Stent changes Attending Provider: Siddharth Navarro Primary Care Provider: Rigo Izaguirre Discharge Orders/Prescriptions Prescriptions: Continued amlodipine 10 mg tablet 10 mg PO DAILY metoprolol succinate 100 MG tablet 100 mg PO DAILY losartan 100 MG tablet 100 mg PO DAILY Patient Comments: BP metformin 500 MG tablet 500 mg PO DAILY rosuvastatin 5 mg tablet 5 mg PO DAILY acetaminophen 500 mg tablet 1,000 mg PO Q6H PRN Qty: 100 0RF hydralazine 25 mg Tablet 25 mg PO TID 30 Days Qty: 90 0RF Xtandi 40 mg tablet 160 mg PO QHS Referrals / Follow Up: Siddharth Navarro MD [Med Staff - Active Staff] - Rigo Izaguirre MD [Primary Care Provider] - Disposition Disposition (needs filled in before D/C Order can be placed): Home, Self Care
--- NOTE | 2023-08-26 09:00 | OP.PCM_ITS ---
Report of Operation Date of Procedure: 08/26/23 Pre-Operative Diagnosis: Bilateral obstruction from cancer Post-Operative Diagnosis: The same Surgery/Procedure Performed:: Cystoscopy, and left stent change and right stent change new Guthrie placement complicated, bilateral retrograde pyelograms Description of Surgical Findings:: Patient was taken back to the operating room after induction of general anesthesia, the patient was placed in dorsolithotomy position. The urethra and genitals were prepped and draped in usual sterile fashion. Using a 21 Spanish rigid cystourethroscope the entire length of the urethra was normal then went into the bladder. Identified the trigone the left and right ureteral orifice. I then cannulated the right ureteral orifice and advanced a wire up into the kidney. I then backloaded a 5 Spanish open ended catheter over the wire and injected contrast to delineate the anatomy. After the retrograde was performed I then used fluoroscopic images and guidance to advanced a wire up into the kidney and over the 0.038 glidewire I advanced a 6 Spanish by 26 cm double pigtail stent. I then pulled the 0.038 Glidewire off and the stent coiled in the kidney bladder good position. The bladder was then drained. We confirmed the position of the stent by fluoroscopy. I went to the other side and cannulated the Left ureteral orifice and advanced a wire up into the kidney. I then backloaded a 5 Spanish open ended catheter over the wire and injected contrast to delineate the anatomy. After the retrograde was performed I then used fluoroscopic images and guidance to advanced a wire up into the kidney and over the 0.038 glidewire I advanced a 6 Spanish by 26 cm double pigtail stent. I then pulled the 0.038 Glidewire off and the stent coiled in the kidney bladder good position. The bladder was then drained. We confirmed the position of the stent by fluoroscopy. Patient anesthetic was reversed and was taken back to the PACU in good condition. Surgeon: Siddharth Navarro Type of Anesthesia: General Drains: 6 fr x 26 cm stent bilateral Admit VTE Documentation VTE Present on Admission: No VTE Mechan Device Prophylaxis: SCD's VTE Pharm Prophylaxis ordered?: No
== END 2023-08-26 10:33 | disposition home or self-care (01) ==
LOC: SDC 07:11 → AC 07:12
PROVIDERS: PCP Family Medicine; Visit Provider Urology
PROC: (CPT 52332; principal; 2023-08-26 08:55)
DX: N31.2 Flaccid neuropathic bladder, not elsewhere classified (principal); C61 Malignant neoplasm of prostate; E11.9 Type 2 diabetes mellitus without complications; E78.00 Pure hypercholesterolemia, unspecified; I10 Essential (primary) hypertension; N40.1 Benign prostatic hyperplasia with lower urinary tract symptoms; N13.39 Other hydronephrosis; Z79.899 Other long term (current) drug therapy; Z79.84 Long term (current) use of oral hypoglycemic drugs; Z86.16 Personal history of COVID-19
CPT/HCPCS: 52332; 00910; 76000; 82962; J7120; C1769

== ENCOUNTER → 2023-09-23 | Outpatient (CLI) | payer MEDICARE, OTHER, SELFPAY | END | disposition home or self-care (01) | LOC: MTLAB 12:58 | PROVIDERS: PCP Family Medicine; Referring Provider Urology; Visit Provider Urology | DX: R97.20 Elevated prostate specific antigen [PSA] (principal) | CPT/HCPCS: 36415; 84153 ==

== ENCOUNTER → 2023-10-03 | Outpatient (CLI) | payer MEDICARE, OTHER, SELFPAY ==
[2023-10-03 15:33] LABS: Absolute Lymphocyte Count 0.86 X10^3/uL (0.83-4.51); Absolute Neutrophil Count 4.6 X10^3/uL (2.0-7.7); Basophil# 0.04 X10^3/uL; Basophil% 0.6 % (0-1); Eosinophil# 0.11 X10^3/uL; Eosinophils% 1.8 % (0-5); Hematocrit 40.9 % (40-54); Hemoglobin 12.9 g/dL (13.0-16.5); Lymphocyte # 0.86 X10^3/ul (0.83-4.51); Lymphocyte % 13.7 % (19-41); Mean Corp Hgb Conc 31.5 g/dL (32-36); Mean Corpuscular Hgb 26.4 pg (27.0-32.0); Mean Corpuscular Volume 83.6 fL (80-94); Mean Platelet Vol. 10.4 fl (6.2-12.0); Monocyte# 0.64 X10^3/uL; Monocyte% 10.2 % (0-10); NRBC Flagged by Analyzer 0 % (0-5); Neutrophil % 73.2 % (47-70); Platelet Count 260 K/mm3 (150-450); RBC Distribution Width CV 16.3 % (11.6-14.6); RBC Distribution Width SD 49.6 fl (35.1-43.9); Red Blood Count 4.89 M/mm3 (4.6-6.2); White Blood Count 6.3 K/mm3 (4.4-11.0)
[2023-10-03 16:11] LABS: Anion Gap 8 (5-15); BUN 37 mg/dL (7-18); BUN/Creat Ratio 23.9 RATIO (10-20); Calcium,Total 9.8 mg/dL (8.5-10.1); Chloride 106 mmol/L (98-107); Creatinine, Serum 1.55 mg/dL (0.70-1.30); EST Glomerular Filtration Rate 46 mL/min (>60); Est Glom Filt Rate - Afr Amer 56 mL/min (>60); Glucose 135 mg/dL (74-106); Potassium 4.3 mmol/L (3.5-5.1); Sodium Level 140 mmol/L (136-145); Thyroid Stim Hormone (TSH) 2.06 uIU/mL (0.358-3.74)
== END | disposition home or self-care (01) ==
LOC: MFPLAB 11:31
PROVIDERS: PCP Family Medicine; Visit Provider Family Medicine
DX: R53.83 Other fatigue (principal)
CPT/HCPCS: 36415; 80048; 84443; 85025

== ENCOUNTER → 2023-10-14 | Outpatient (CLI) | payer MEDICARE, OTHER, SELFPAY ==
[2023-10-14 18:29] LABS: Xtra Tube EP Lab EXTRA TUBE
[2023-10-14 18:31] LABS: Xtra Tube EP Lab EXTRA TUBE
== END | disposition home or self-care (01) ==
LOC: MTLAB 10:27
PROVIDERS: PCP Family Medicine; Referring Provider Internal Medicine Medical Oncology; Visit Provider Internal Medicine Medical Oncology
DX: C61 Malignant neoplasm of prostate (principal)
CPT/HCPCS: 36415; 84153

== ENCOUNTER → 2023-10-17 | Outpatient (CLI) | payer MEDICARE, OTHER, SELFPAY ==
--- NOTE | 2023-10-17 16:10 | CT_ITS ---
EXAM: CT CHEST, ABDOMEN AND PELVIS WITH INTRAVENOUS CONTRAST CLINICAL INDICATION: PROSTATE CA TECHNIQUE: Helically acquired images were obtained of the chest, abdomen and pelvis with intravenous contrast. This CT exam was performed using one or more of the following dose reduction techniques: automated exposure control, adjustment of the mA and/or kV according to patient size, and/or use of iterative reconstruction technique. CONTRAST: IV 100mL Isovue-300 COMPARISON: PET/CT scan dated 10/11/2023. FINDINGS: CHEST: LUNGS AND PLEURAL SPACES: Unremarkable. No mass. No consolidation or edema. No pleural effusion or thickening. No pneumothorax. HEART: Unremarkable. Heart size is normal. No pericardial effusion. MEDIASTINUM: Unremarkable. No mediastinal or hilar adenopathy. Esophagus is unremarkable. No hiatal hernia. THYROID: Unremarkable. No thyroid lesions. ABDOMEN: LIVER: Unremarkable. Homogeneous. No focal mass. GALLBLADDER AND BILE DUCTS: Unremarkable. No calcified gallstones. No gallbladder distention or wall edema. No intra- or extrahepatic biliary ductal dilation. PANCREAS: Unremarkable. No focal cystic or solid mass. SPLEEN: Unremarkable. Normal size without focal cystic or solid mass. ADRENALS: Unremarkable. No nodules. KIDNEYS AND URETERS: There is left-sided hydroureter. There are bilateral ureteral stents with the proximal portions in the proximal ureters bilaterally. Normal renal size and position. STOMACH AND BOWEL: Unremarkable. No stomach or bowel distention. No focal inflammatory change. PELVIS: APPENDIX: No evidence of acute appendicitis. BLADDER: There is a Guthrie catheter in bladder. Bladder wall is thickened. REPRODUCTIVE: Unremarkable as visualized. No mass. CHEST, ABDOMEN and PELVIS: INTRAPERITONEAL SPACE: Unremarkable. No ascites or other fluid collection. No free air. BONES/JOINTS: Unremarkable. No suspicious lytic or blastic abnormality. SOFT TISSUES: Unremarkable. No discrete abdominal or pelvic wall hernia. VASCULATURE: Unremarkable. Aorta is non-dilated. No aortic dissection. No obvious central pulmonary embolism although this study was not performed with the pulmonary embolism protocol. LYMPH NODES: Unremarkable. No enlarged lymph nodes. OTHER FINDINGS: There are multiple low-density masses throughout the compatible static disease. Correspond to hypermetabolic lesion seen on the previous PET CT scan. CT/CT Chest, Abd, Pel w/Contrast IMPRESSION: 1. Multiple low-density masses in the liver compatible with metastatic disease. As seen on previous PET CT scan. 2. Left-sided hydronephrosis and hydroureter. Bilateral ureteral stents present with the proximal portions of the stent in the proximal ureters. 3. Thickening of the urinary bladder wall. Electronically Signed: Amador Cortez MD at 0:08 EDT ,
== END | disposition home or self-care (01) ==
LOC: CT 15:40
PROVIDERS: PCP Family Medicine; Referring Provider Internal Medicine Medical Oncology; Visit Provider Internal Medicine Medical Oncology
DX: C61 Malignant neoplasm of prostate (principal)
CPT/HCPCS: 71260; 74177; Q9967

== ENCOUNTER → 2023-10-27 | Outpatient (CLI) | payer MEDICARE, OTHER, SELFPAY ==
[2023-10-27] VITALS (13 sets, daily range): BP systolic 130–185; BP diastolic 54–76; PULSE 69–72; RESP 13–19; TEMP 36.5; O2SAT 94–100; BMI 25.1
--- NOTE | 2023-10-27 | IMM_PTH ---
PATIENT: VILMA SAM LOC: CT U#:[id number] AGE/SX: 78/M ROOM: RE10/27/[address]: Dr. Jordan Gonzales MD : 1945 BED: DIS: 10/27/2023 SPEC #: [id number] RECD: 10/27/23 11:55 STATUS: BRUCE REQ #: [id number] DERREK: 10/27/23 00:[address]: Jordan Gonzales DEPT: IMMUNOHISTOCHEMISTRY RECD BY: Jaren Izaguirre ENTERED: 10/27/23 11:56 SP TYPE: IMMUNO OTHR DR: Dr. Rigo Izaguirre MD Tissues: Liver, NOS Procedures: RCC (add) NAPSIN A (add) CK20 (add) CK5-6 (add) CK7 (add) CK8 (add) HEP PAR (add) KI-67 (add) P53 (add) TTF1 (add) Pankeratin (initial) P40 (add) PSAP (add) PHYSICIAN & [address] [address] SPECIMEN INFORMATION: Tissue Source: Liver biopsy Clinical Info: Liver mass Specimen Number: [id number] CPT code: 12852,48730o15 METHODOLOGY: Deparaffinized sections of prefer/formalin-fixed tissue or PAP/DQ stained slides are incubated with monoclonal/polyclonal antibodies/oligonucleotide probes. Localization is made via biotin free immunoperoxidase method. Appropriate controls are performed and reacted as expected. Results on target cell population are indicated in the following table: RESULTS: ANTIBODY / CLONE RESULT AE1-3 (AE1/AE3/PCK26) positive CK7 (OV-TL12/30) negative CK8 (90sjbgR55) positive CK20 (KS20.8) negative TTF-1 (8G7G3/1) negative Napsin A (Rabbit Polyclonal) negative HepPar (OCh1E5) negative RCC (PN-15) negative PSAP (PASE/4LJ) positive, focal CK5-6 (D5 & 1684) negative P40 (BC28) negative P53 (DO-7) positive (indeterminate pattern) Ki-67 (30-9) positive, ~40% Chromo (LK2H10) negative Synapto (polyclonal) negative These tests were developed and their performance characteristics determined by [facility]. They may not have been cleared or approved by the U.S. Food and Drug Administration. The FDA has determined that such clearance or approval is not necessary. The above immunohistochemical/dualISH markers are ordered and reviewed by the Pathologist. INTERPRETATION: Liver mass, biopsy: Poorly differentiated metastatic adenocarcinoma. See comment. COMMENT: IHC profile is consistent with prostate primary. Case has been reviewed in consultation with Dr. Jay who concurs with the above diagnosis. IDC:KADY BOWSER/ 10/28/2023
--- NOTE | 2023-10-27 | ASPIGT_PTH ---
PATIENT: VILMA SAM LOC: NE U#:[id number] AGE/SX: 78/M ROOM: RE10/27/[address]: Dr. Jordan Gonzales MD : 1945 BED: DIS: 10/27/2023 SPEC #: [id number] RECD: 10/27/23 10:36 STATUS: BRUCE JADE #: [id number] DERREK: 10/27/23 00:[address]: Jordan Gonzales DEPT: SURGICAL PATHOLOGY RECD BY: Yaneth Shields ENTERED: 10/27/23 10:40 SP TYPE: ASP RAD OTHR DR: Dr. Rigo Izaguirre MD Tissues: Liver, NOS Procedures: FNA Specimen Adequacy Special Stain Group II Surgery Specimen Level IV Surgery Specimen Level V Imprint (control) HEADER OPERATION: Liver, CT guided core biopsy PRE-OP DIAGNOSIS: Liver mass TISSUE SUBMITTED: 18 gauge x 5 cores MICROSCOPIC DIAGNOSIS Liver mass, CT guided core biopsy:Poorly differentiated metastatic adenocarcinoma. See note. NOTE: Immunohistochemistry ([id number]) support the above diagnosis and consistent with prostatic primary. SJ/mr 10/28/2023 COMMENT Correlation with clinical, radiologic findings and appropriate follow up are necessary. Molecular studies on the tumor can be performed if clinically indicated. Please notify the laboratory if they are needed. Please make reference to previous specimen [id number] left prostate, needle core biopsy diagnosis of moderate well differentiated adenocarcinoma and [id number] anal verge, biopsy and anterior anal biopsy diagnosis of invasive adenocarcinoma. The specimen is evaluated at the time of biopsy by Dr. Jacobo. Immediate Evaluation = Malignant cells present desired non-small cell carcinoma. Case has been reviewed in consultation with Dr. Jay who concurs with the above diagnosis. IDC:AM MICROSCOPIC DESCRIPTION Slides are reviewed. GROSS DESCRIPTION Received in fixative is one container labeled with the patient's name and designated Liver CT guided core biopsy. The specimen consists of multiple irregular fragments of light richmond soft tissue that in aggregate measure 2.0 x 0.5 x 0.1 cm. The specimen is totally submitted in one cassette. Two touch imprints are prepared at the time of core biopsy. NIELS/mr 10/27/2023 TC:0 [facility]:[id number] ADDENDUM ADDENDUM ADDENDUM ADDENDUM ADDENDUM ADDENDUM 05/15/2024 08:51 ADDENDUM 05/30/2024 08:30 ADDENDUM 05/15/2024 08:51 ADDENDUM 05/15/2024 08:51 ADDENDUM 05/15/2024 08:51 ADDENDUM 05/15/2024 08:51 PD-L1 (KEYTRUDA) IMMUNOHISTOCHEMICAL ANALYSIS FROM [facility] RESULTS: Tumor proportion score: <1% / NEGATIVE Please see complete report in e-chart or EMR [facility] ADVANCED PROSTATE NGS REPORT FROM [facility] RESULT SUMMARY : ABNORMAL TUMOR TYPE: Adenocarcinoma CLINICAL INFORMATION: Liver mass CT- guided core biopsy showed poorly differentiated metastatic adenocarcinoma (Testing performed on [id number]). HISTOPATHOLOGIC REVIEW: Tumor is present and is estimated to comprise 20-50% of nuclei in the sample. IMMUNOTHERAPY BIOMARKERS: TUMOR MUTATION BURDEN: LOW (3.1 mutations / MB) MICROSATELLITE INSTABILITY: MSI NEGATIVE (0.82%) Please see complete report in e-chart or EMR
[2023-10-27 08:52] LABS: Absolute Lymphocyte Count 0.85 X10^3/uL (0.83-4.51); Absolute Neutrophil Count 4.4 X10^3/uL (2.0-7.7); Basophil# 0.03 X10^3/uL; Basophil% 0.5 % (0-1); Eosinophil# 0.18 X10^3/uL; Hematocrit 41.1 % (40-54); Hemoglobin 13.3 g/dL (13.0-16.5); Lymphocyte # 0.85 X10^3/ul (0.83-4.51); Mean Corp Hgb Conc 32.4 g/dL (32-36); Mean Corpuscular Hgb 27.1 pg (27.0-32.0); Mean Corpuscular Volume 83.7 fL (80-94); Mean Platelet Vol. 9.1 fl (6.2-12.0); Monocyte# 0.63 X10^3/uL; Monocyte% 10.4 % (0-10); NRBC Flagged by Analyzer 0 % (0-5); Neutrophil # 4.37 X10^3/uL (2.7-7.7); Neutrophil % 71.8 % (47-70); Platelet Count 229 K/mm3 (150-450); RBC Distribution Width CV 15.2 % (11.6-14.6); Red Blood Count 4.91 M/mm3 (4.6-6.2); White Blood Count 6.1 K/mm3 (4.4-11.0)
[2023-10-27 09:05] LABS: Prothrombin Time (Protime)PT. 13.3 SECONDS (11.7-14.9)
[2023-10-27 09:06] LABS: Partial Thromboplast Time 31.8 Seconds (24.1-36.2)
[2023-10-27] MEDS: 0.9% Normal Saline (250mL Bag) 250 ML 15 ML IV (09:30)
[2023-10-27] MEDS: 0.9% Saline Lock 10 ML Syringe IV (09:30)
[2023-10-27] MEDS: Midazolam 2 MG/2 ML Syringe IV (09:45)
[2023-10-27] MEDS: fentaNYL 100 MCG/2 ML Ampul IV (09:48)
[2023-10-27] MEDS: Lidocaine 2% (20 ml mdv) 20 ML Vial INFILT (09:57)
--- NOTE | 2023-10-27 10:45 | PCM.OP.PRO ---
Procedure Report Date of Procedure: 10/27/23 Assessment & Plan Assessment/Plan (1) Liver lesion: PLAN: PROCEDURE: CT DIRECTED CORE LIVER BIOPSY ORDERING PROVIDER: Dr. Gonzales INDICATION: Male, 78 years old. Multiple liver lesions. PROVIDER: ROLLY Capellan CONSENT: Written informed consent was obtained having explained the risks, benefits and alternatives in detail with the patient who accepted the risks and agreed to proceed. Laboratory review and clinical assessment was performed. PRE-PROCEDURE SEDATION ASSESSMENT: Current history and physical dictated by referring provider and reviewed. No clinical changes since date of exam. Patient has an ASA Class of 2. PROCEDURAL SEDATION PROTOCOL: The Drugs used were: 2 mg Versed, IV, and 50 mcg Fentanyl, IV. The sedation time was: 22 minutes, starting at 9:45 AM and terminated at 10:07 AM. The procedural sedation protocol was independently monitored by the department nurse. RADIATION DOSAGE (If Supplied By Facility): CTDIvol = 17.30 mGy, DLP = 375.27 mGycm Individualized dose optimization techniques were used for this CT. TECHNIQUE: The patient was placed in a supine with right side elevated position. Using CT image guidance with image documentation, a suitable location in the right lobe of the liver was identified. The skin surface was prepped with betadine and draped in a sterile fashion. 2% lidocaine was used for local anesthesia. Using a 45 degree approach, puncture of the targeted liver lesion was uneventful with an 18-gauge core needle system. 5, 18-gauge core samples were obtained, and submitted in formalin to the pathologist for further assessment. The needle was removed. An occlusive sterile dressing was applied. Patient tolerated the procedure well, and returned to the holding bay for nursing monitoring. IMPRESSION: 1. CT directed core needle biopsy of the targeted liver lesion, using CT image guidance with image documentation as described. 2. Procedural Sedation protocol utilized with independent monitoring. Procedures Radiology Radiology CT Procedures: 31768 Biopsy Liver Multi Select Codes Radiology Radiology CT Procedures: [id number] CT guidance parenchymal tissue
== END | disposition home or self-care (01) ==
PROVIDERS: PCP Family Medicine; Referring Provider Internal Medicine Medical Oncology; Visit Provider Internal Medicine Medical Oncology
DX: Z01.818 Encounter for other preprocedural examination (principal); C78.7 Secondary malignant neoplasm of liver and intrahepatic bile duct; C61 Malignant neoplasm of prostate; R16.0 Hepatomegaly, not elsewhere classified
CPT/HCPCS: 47000; 36415; 77012; 84153; 85025; 85610; 85730; 88172; 88305; 88307; 88313; 88341; 88342; 99156; J7050; A4216

== ENCOUNTER → 2023-11-11 | Outpatient (CLI) | payer MEDICARE, OTHER, SELFPAY ==
--- NOTE | 2023-11-11 10:42 | ECHODONC_ITS ---
Reason For Study: PRECHEMO Procedure This was a 2D Doppler, Color Flow transthoracic echocardiogram. Myocardial strain analysis was performed in this exam to aid in the assessment of cardiac function. Exam performed in department. Left Ventricle Normal LV size. Left ventricular systolic function is normal. The left ventricular ejection fraction is 65 %. No regional wall motion abnormalities noted. Right Ventricle Normal right ventricle. Normal systolic function. Atria Normal left atrium. Normal right atrium. Mitral Valve There is mild mitral annular calcification. Bileaflet diffuse mitral valve thickening. Tricuspid Valve Normal tricuspid valve. Aortic Valve Trisinus/trileaflet aortic valve. Pulmonic Valve Normal pulmonic valve. Great Vessels Normal aortic root. The pulmonary artery is normal size. Normal inferior vena cava. Pericardium/Pleural No pericardial effusion. MMode/2D Measurements & Calculations RVDd: 2.8 cm LVOT diam: 2.2 cm LAV(MOD-bp): 49.2 ml LVOT area: 3.7 cm2 LAV(MOD-bp) Indexed: 25.0 ml/m2 LAV(MOD-sp2): 60.9 ml LAV(MOD-sp4): 39.8 ml SV(MOD-sp4): 45.3 ml SV(sp4-el): 48.1 ml LVAd ap4: 25.3 cm2 LVLd ap4: 7.9 cm EDV(MOD-sp4): 67.8 ml EDV(sp4-el): 69.1 ml LVAs ap4: 12.7 cm2 LVLs ap4: 6.5 cm ESV(MOD-sp4): 22.6 ml ESV(sp4-el): 21.0 ml EF(MOD-sp4): 66.7 % EF(sp4-el): 69.6 % LA A4 area: 16.7 cm2 RA A4 area: 11.3 cm2 TAPSE: 2.2 cm Time Measurements MV dec time: 0.23 sec Doppler Measurements & Calculations MV E max neeraj: 70.6 cm/sec Lat Peak E' Neeraj: 8.5 cm/sec Med Peak E' Neeraj: 8.2 cm/sec MV A max neeraj: 68.0 cm/sec E/E' lat: 8.3 E/E' med: 8.6 MV E/A: 1.0 MV V2 max: 90.0 cm/sec MV dec slope: 314.8 cm/sec2 Ao V2 max: 133.7 cm/sec MV max P.2 mmHg Ao max P.2 mmHg MV V2 mean: 47.4 cm/sec Ao V2 mean: 90.2 cm/sec MV mean P.1 mmHg Ao mean P.8 mmHg MV V2 VTI: 21.1 cm Ao V2 VTI: 28.9 cm MVA(VTI): 4.1 cm2 AV (velocity ratio): 0.82 MOO(I,D): 3.0 cm2 MOO(V,D): 2.7 cm2 LV V1 max: 98.6 cm/sec SV(LVOT): 86.7 ml PA V2 max: 79.7 cm/sec LV V1 max P.9 mmHg PA max PG (full): 0.95 mmHg LV V1 mean P.1 mmHg LV V1 mean: 67.7 cm/sec LV V1 VTI: 23.7 cm TR max neeraj: 176.2 cm/sec TR max P.4 mmHg ECHO/ONC Echo Complete Interpretation Summary Normal LV size. Left ventricular systolic function is normal. The left ventricular ejection fraction is 65 %. There is mild mitral annular calcification. Bileaflet diffuse mitral valve thickening. The global longitudinal strain = -18.7 % (normal). Ordering Physician: Jordan Gonzales Referring Physician: Jordan Gonzales Performed By: Key Velez and Student
== END | disposition home or self-care (01) ==
LOC: CVS 10:38
PROVIDERS: PCP Family Medicine; Referring Provider Internal Medicine Medical Oncology; Visit Provider Internal Medicine Medical Oncology
DX: Z01.818 Encounter for other preprocedural examination (principal); C61 Malignant neoplasm of prostate
CPT/HCPCS: 93306; 93356

== ENCOUNTER → 2023-12-29 | Outpatient (CLI) | payer MEDICARE, OTHER, SELFPAY ==
[2023-12-29 12:25] LABS: Absolute Lymphocyte Count 0.66 X10^3/uL (0.83-4.51); Absolute Neutrophil Count 7.4 X10^3/uL (2.0-7.7); Basophil# 0.04 X10^3/uL; Basophil% 0.5 % (0-1); Eosinophil# 0.11 X10^3/uL; Eosinophils% 1.2 % (0-5); Hematocrit 39.9 % (40-54); Hemoglobin 12.8 g/dL (13.0-16.5); Lymphocyte # 0.66 X10^3/ul (0.83-4.51); Lymphocyte % 7.4 % (19-41); Mean Corp Hgb Conc 32.1 g/dL (32-36); Mean Corpuscular Hgb 27.6 pg (27.0-32.0); Mean Platelet Vol. 9.8 fl (6.2-12.0); Monocyte% 6.8 % (0-10); NRBC Flagged by Analyzer 0 % (0-5); Neutrophil # 7.43 X10^3/uL (2.7-7.7); Neutrophil % 83.6 % (47-70); Platelet Count 201 K/mm3 (150-450); RBC Distribution Width CV 15.9 % (11.6-14.6); RBC Distribution Width SD 49.5 fl (35.1-43.9); Red Blood Count 4.64 M/mm3 (4.6-6.2); White Blood Count 8.9 K/mm3 (4.4-11.0)
--- NOTE | 2023-12-29 12:26 | CT_ITS ---
STUDY: CT ABDOMEN AND PELVIS WITH CONTRAST REASON FOR EXAM: Male, 78 years old. PROSTATE CA RADIATION DOSAGE (If Supplied By Facility): CTDIvol = ( 14.85 ) mGy, DLP = ( 951.88 ) mGycm TECHNIQUE: Transaxial images were obtained from the dome of the diaphragm to the symphysis pubis without oral contrast. IV 100mL Isovue-370 was administered. Sagittal and coronal images were reconstructed. Individualized dose optimization techniques were used for this CT. COMPARISON: Comparison is made with prior study February 24, 2023. FINDINGS: Since prior study, there is now evidence of multiple hypodense masses of varying sizes involving both the right and left lobes of the liver. Findings are in keeping with metastatic deposits. Coronary artery calcification. There are surgical clips in the gallbladder fossa consistent with a prior cholecystectomy. Normal spleen. Normal pancreas. Normal bilateral adrenal glands. There is evidence of bilateral double-J stent catheters with the proximal tip in the right renal pelvis. The tip of the left double-J catheter is in the proximal portion of the left ureter. The distal tips are in the urinary bladder. Stable mild degree of bilateral hydronephrosis stable right renal cyst. Normal visualized stomach. Normal small intestine. There is evidence of surgical anastomosis of the sigmoid colon. A colostomy is seen in the left anterior lower quadrant. Prominent presacral soft tissue changes. This has progressed as compared to prior study and this may represent progressive fibrosis if the patient received radiation therapy. There is diffuse atherosclerotic calcification of the abdominal aorta, without a demonstrated aneurysm. 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 Normal inferior vena cava. Normal retroperitoneum. There is circumferential bladder wall thickening. Prostatic calcification with indentation of the bladder base. Small bilateral inguinal hernias. There are diffuse degenerative changes of the visualized lumbar spine. CT/Abdomen/Pelvis W IV Cont ONLY IMPRESSION: Multiple hepatic masses. Metastatic deposits should be ruled out. Progressive increase in the presacral soft tissue density suggests a possible postoperative scarring and/or radiation therapy with possible small amount of fluid. Bilateral double-J stent catheters seen. Electronically Signed: Matthew Umana MD at 9:53 EDT ,
[2023-12-29 12:34] LABS: International Normalized Ratio 1.1; Prothrombin Time (Protime)PT. 13.9 SECONDS (11.7-14.9)
[2023-12-29 12:35] LABS: Partial Thromboplast Time 29.5 Seconds (24.1-36.2)
[2023-12-29 13:15] LABS: ALB/GLOB Ratio 0.9 RATIO (0.9-2.4); AST(SGOT) 23 U/L (15-37); Alanine Aminotransfer ALT/SGPT 25 U/L (16-61); Albumin, Serum 3.3 g/dL (3.2-5.0); Alkaline Phosphatase 76 U/L (45-117); Anion Gap 8 (5-15); BUN 35 mg/dL (7-18); BUN/Creat Ratio 22.7 RATIO (10-20); Calcium,Total 9.3 mg/dL (8.5-10.1); Chloride 103 mmol/L (98-107); Creatinine, Serum 1.54 mg/dL (0.70-1.30); EST Glomerular Filtration Rate 46 mL/min (>60); Est Glom Filt Rate - Afr Amer 56 mL/min (>60); Globulin 3.5 g/dL (2.2-4.2); Glucose 194 mg/dL (74-106); LDH 187 U/L (87-241); Potassium 4.6 mmol/L (3.5-5.1); Protein, Total 6.8 g/dL (6.4-8.2); Sodium Level 138 mmol/L (136-145)
== END | disposition home or self-care (01) ==
LOC: CT 12:10
PROVIDERS: PCP Family Medicine; Referring Provider Internal Medicine Medical Oncology; Visit Provider Internal Medicine Medical Oncology
DX: C61 Malignant neoplasm of prostate (principal); T14.8XXA Other injury of unspecified body region, initial encounter
CPT/HCPCS: 36415; 74177; 80053; 83615; 84153; 85025; 85610; 85730; Q9967

== ENCOUNTER 2024-01-09 09:55 | Day surgery (SDC) | payer MEDICARE, OTHER, SELFPAY ==
[2024-01-09] VITALS (9 sets, daily range): BP systolic 137–159; BP diastolic 65–73; PULSE 58–67; RESP 16–18; TEMP 36.2–36.6; O2SAT 97–100; BMI 25.2
[2024-01-09] MEDS: Lactated Ringers 1,000 ML 15 ML IV (10:41)
--- NOTE | 2024-01-09 10:56 | PRE.ANES_ITS ---
ASA Classification* ASA Classification ASA Classification: 3 Assessment & Plan Anesthesia* Anesthesia Assessment Anesthesia Assessment: Discussed sedation and/or anesthesia options, risks, benefits, and alternatives with patient/parents/legal guardian/POA. Questions invited. The patient/parents/legal guardian/POA seems to understand and agrees to proceed with anesthesia plan. Reviewed the physical assessment, medical history, allergy history and patient home medications list prior to surgery/procedure/anesthetic and documented any changes. Performed airway and anesthesia risk assessments. Anesthesia Type Anesthesia Type: MAC History Source History Obtained from:: Patient and Chart Anesthesia Focused Assessment* Temperature: 97.8 F Pulse Rate: 58 Blood Pressure: 159/65 Respiratory Rate: 18 Pulse Ox: 100 Oxygen Delivery Method: Room Air Airway Assessment Mouth opens: >3 cm Mallampati Score: II Teeth Condition: Intact Neck Range of motion (ROM): Full ROM Pertinent Findings ECHO Pertinent Findings:: 65% EF Focused Labs Anesthesia Preop lab: CBC WBC 8.9 K/mm3 (4.4-11.0) 12/29/23 12:14 RBC 4.64 M/mm3 (4.6-6.2) 12/29/23 12:14 Hgb 12.8 g/dL (13.0-16.5) L 12/29/23 12:14 Hct 39.9 % (40-54) L 12/29/23 12:14 Plt Count 201 K/mm3 (150-450) 12/29/23 12:14 CHEMISTRY Potassium 4.6 mmol/L (3.5-5.1) 12/29/23 12:14 Sodium 138 mmol/L (136-145) 12/29/23 12:14 Magnesium 2.0 mg/dL (1.6-2.6) 12/12/23 13:49 Phosphorus 2.9 mg/dL (2.5-4.9) 12/12/23 13:49 BUN 35 mg/dL (7-18) H 12/29/23 12:14 Creatinine 1.54 mg/dL (0.70-1.30) H 12/29/23 12:14 Glucose 194 mg/dL (74-106) H 12/29/23 12:14 POC Glucose 130 mg/dL (74-106) H 08/26/23 07:37 TSH 2.06 uIU/mL (0.358-3.74) 10/03/23 11:31 COAG PT 13.9 SECONDS (11.7-14.9) 12/29/23 12:14 Pre-Assessment Diagnosis/Proposed Procedure Planned Operative Procedure(s): RIGHT POSS LEFT INSERTION VASCULAR PORT Anesthesia History Anesthesia History - community development aide: Anesthesia History - community development aide Hx Hospitalization Yes: [facility] 202201/06/24 09:55 Any Problems With Anesthesia Yes: AWAKENED DURING KNEE 01/06/24 09:55 REPLACEMENT 02/2023 Cholinesterase deficiency No 01/06/24 09:55 You/Your Family Experience No 01/06/24 09:55 fever (hyperthermia) with Relationship Recent Exposure to Contagious No 01/09/24 10:19 Disease Does patient have nerve No 01/06/24 09:55 stimulator Patient instructed to have device shut off --Does patient have Pacemaker No 01/09/24 10:19 or ICD? When Was Last Pacemaker Check QUESTION #4 FULL TEXT: You/Your Family Experience fever (hyperthermia) with Anesthesia Any additional information?: No Last Oral Intake Last Oral intake: Last Oral Intake NPO since 08:30 01/09/24 10:19 Meds taken in AM with sips of Yes 01/09/24 10:19 water? Meds patient instructed to see medlist 01/09/24 10:19 take am of surgery Any additional information?: No PONV PONV - community development aide: PONV - community development aide Female No 01/06/24 09:55 HX of Motion Sickness No 01/06/24 09:55 HX of N/V After Surgery No 01/06/24 09:55 Non-Smoker Yes 01/06/24 09:55 Duration of Surgery greater No 01/06/24 09:55 than 60 minutes Number of Risk Factors 1 01/06/24 09:55 PONV Score Low Risk 01/06/24 09:55 Any additional information?: No Height & Weight Height & Weight: Anesthesia: Height & Weight Height 5 ft 10 in 01/09/24 10:19 Weight: 80 kg 01/09/24 10:19 Body Mass Index (BMI) 25.2 01/09/24 10:19 Respiratory Assessment Respiratory Assessment - community development aide: Respiratory Tract Infection Hx - community development aide Hx Respiratory Tract Infection No 01/06/24 09:55 Any additional information?: No STOP Sleep Apnea STOP Sleep Apnea - community development aide: STOP Sleep Apnea - community development aide Hx Hypertension Yes: CONTROLLED WITH MEDS 01/06/24 09:55 Hx Sleep Apnea No 01/06/24 09:55 CPAP No 08/26/23 09:31 BIPAP No 08/17/23 15:02 Do you snore loudly (louder Yes 01/06/24 09:55 than talking or can be heard Do you often feel tired/ Yes 01/06/24 09:55 fatigued/ sleepy during daytime? Has anyone observed you stop No 01/06/24 09:55 breathing during sleep? STOP Results Positive 01/06/24 09:55 QUESTION #5 FULL TEXT : Do you snore loudly (louder than talking or can be heard through closed doors)? Any additional information?: No 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 History - community development aide: Tobacco Use History - community development aide Tobacco Use Smoking Status Never smoker 01/06/24 09:55 Hx Tobacco Use No 01/06/24 09:55 Years Smoking Packs Smoked per Day Smoking Cessation Date was within the last 15 years Hx Smoking Cessation Date Hx Smoking Cessation Counseling Any additional information?: No Hematologic Medial History Hematologic Hx - community development aide: Hematologic Medical Hx - burnisher Hx of Blood Transfusion Yes 01/06/24 09:55 Hx of Transfusion in last 3 No 01/06/24 09:55 Months Date of Last Transfusion (if within last 3 months) Ever experience any problems No 01/06/24 09:55 with transfusion(s)? Specify any problems Hx of Preganancy in last 3 N/A 01/06/24 09:55 Months Nurse Filling Out Transfusion DSCHRIBER 01/06/24 09:55 & Questions: Date: 01/06/24 01/06/24 09:55 Time: 09:57 01/06/24 09:55 Patient unable to answer at this time (ie. confused, unrespo Any additional information?: No /Reproduction History /Reproductive History - community development aide: /Reproductive Hx- community development aide Hx Now No 01/06/24 09:55 Gestational Age (in weeks): EDC: Hx Hx Para Hx Section SAB No 01/06/24 09:55 Any additional information?: No Active Medications Active Medications: Current Medications Generic Name Dose Route Start Last Admin Trade Name Christopher PRN Reason Stop Dose Admin Lactated Ringer's 1,000 mls @ 15 mls/hr 01/09/24 10:15 01/09/24 10:41 IV 15 mls/hr .Q48H TEE Administration [facility] Medical History (Updated 01/06/24 @ 10:02 by Deneen Olivera) Encounter for education Elevated PSA Torn meniscus Chronic pain COVID History of Clostridium difficile infection Indwelling urethral catheter present Diabetes Gout High cholesterol Non-smoker History of anal cancer Cancer HTN (hypertension) Home Medications ?Medication ?Instructions ?Recorded ?Last Taken ?Type losartan 100 mg tablet 100 mg PO DAILY bp 06/01/13 01/09/24 History metoprolol succinate 100 mg 100 mg PO DAILY bp 06/01/13 01/09/24 History tablet,extended release 24 hr metformin 500 mg tablet,extended 500 mg PO DAILY DIABETES 04/25/20 03/05/23 History release 24 hr rosuvastatin 5 mg tablet 5 mg PO DAILY CHOLESTEROL 12/16/21 03/04/23 History amlodipine 10 mg tablet 10 mg PO DAILY BP 01/07/23 01/09/24 History hydralazine 25 mg tablet 25 mg PO TID 30 days #90 tabs 03/23/23 Unknown Rx abiraterone 500 mg tablet 1,000 mg PO DAILY 12/30/23 Unknown History prednisone 5 mg tablet 5 mg PO BID #60 tabs 01/05/24 01/09/24 Rx lidocaine-prilocaine 2.5 %-2.5 % 1 applic topical ONCE PRN port 01/09/24 Unknown Rx topical cream access 30 days #30 grams omeprazole 20 mg capsule,delayed 20 mg PO DAILY #30 caps 01/09/24 Unknown Rx release ondansetron 8 mg disintegrating 8 mg PO Q8H PRN nausea and 01/09/24 Unknown Rx tablet vomiting #30 tabs Allergy/AdvReac Type Severity Reaction Status Date / Time hydromorphone (From Dilaudid) AdvReac Other Verified 01/06/24 09:52 meperidine (From Demerol) AdvReac Nausea/Vom/ Verified 01/06/24 09:52 Diarrhea Family History Father Myocardial infarction Surgical History (Updated 01/06/24 @ 10:02 by Deneen Olivera) Hx of colectomy History of total left knee replacement S/P total knee arthroplasty Hx of cystoscopy Hx of left knee surgery Hx of cystoscopy Hx of cystoscopy Hx of cystoscopy (~05/28/20) Hx of cystoscopy (~01/23/20) Hx of dilation of urethra Hx of cystoscopy Hx of cystoscopy Hx of cystoscopy History of removal of Port-a-Cath Hx of colonoscopy Hx of cataract surgery History of back surgery History of cholecystectomy History of appendectomy Social History household members: spouse Smoking Status: Never smoker alcohol intake: never substance use type: does not use Prior Cardiac Testing/Procedures Prior Cardiac Testing/Procedures: Echocardiogram Review of Systems (Anesthesia) ROS Narrative System reviewed and no additional complaints, except as documented. Physical Exam Const alert and oriented x3 Orientation / Consciousness: awake HEENT dentition normal Neck full ROM Resp normal respiratory effort, normal air movement and clear to auscultation bilaterally Cardio regular rate and regular rhythm Back/Spine normal ROM Extremity full ROM Skin Rashes: no rashes Neuro oriented x3 and moves all extremities
[2024-01-09 11:04] LABS: Bedside Glucose 98 mg/dL (74-106)
--- NOTE | 2024-01-09 11:16 | PCM.HP.BLA ---
History and Physical Date of Admission: 01/09/24 Intake Vital Signs 01/02/2413:37 01/03/2409:39 Height 5 ft 10 in 5 ft 10 in Weight: 178 lb 9.191 oz BMI 25.6 BP 179/84 H Blood Pressure Location Rt brachial Position Sitting Respiration 18 Intake Visit Reasons: PORT PLACEMENT Chief Complaint: port Clinical Cytogeneticist Scientist Required: No Is patient in pain?: No Allergies hydromorphone (From Dilaudid) Adverse Reaction (Verified 01/05/24 14:31) Othermeperidine (From Demerol) Adverse Reaction (Verified 01/05/24 14:31) Nausea/Vom/Diarrhea Medications ?Medication ?Instructions ?Recorded ?Confirmed ?Type losartan 100 mg tablet 100 mg PO DAILY bp 06/01/13 01/05/24 History metoprolol succinate 100 mg 100 mg PO DAILY bp 06/01/13 01/05/24 History tablet,extended release 24 hr metformin 500 mg tablet,extended 500 mg PO DAILY DIABETES 04/25/20 01/05/24 History release 24 hr rosuvastatin 5 mg tablet 5 mg PO DAILY CHOLESTEROL 12/16/21 01/05/24 History amlodipine 10 mg tablet 10 mg PO DAILY BP 01/07/23 01/05/24 History acetaminophen 500 mg tablet 1,000 mg (2 x 500 mg) PO Q6H PRN 02/16/23 01/05/24 Rx pain #100 tabs hydralazine 25 mg tablet 25 mg PO TID 30 days #90 tabs 03/23/23 01/05/24 Rx abiraterone 500 mg tablet mg PO 12/30/23 01/05/24 History prednisone 5 mg tablet 5 mg PO BID #60 tabs 01/05/24 01/05/24 Rx Have you fallen in the past year?: No PFSH Medical History (Updated 01/06/24 @ 07:[address] Jose Michele MD) Encounter for education Elevated PSA Torn meniscus Chronic pain COVID History of Clostridium difficile infection Indwelling urethral catheter present Diabetes Gout High cholesterol Non-smoker History of anal cancer Cancer HTN (hypertension) Surgical History Hx of colectomy History of total left knee replacement S/P total knee arthroplasty Hx of cystoscopy Hx of left knee surgery Hx of cystoscopy Hx of cystoscopy Hx of cystoscopy (~05/28/20) Hx of cystoscopy (~01/23/20) Hx of dilation of urethra Hx of cystoscopy Hx of cystoscopy Hx of cystoscopy History of removal of Port-a-Cath Hx of colonoscopy Hx of cataract surgery History of back surgery History of cholecystectomy History of appendectomy Family History Father Myocardial infarction Social History household members: spouse Smoking Status: Never smoker alcohol intake: never substance use type: does not use HPI HPI HPI: Patient is an 78-year-old male here for chest port for prostate cancer. Patient had a history of right chest port in the past. ROS General General: Yes colon cancer; No weight change, appetite, fatigue, breast cancer or weakness HEENT HEENT: No difficulty swallowing, eye injury, eye surgery, swollen glands or hoarseness Endo Endocrine: No thyroid disease, diabetes mellitus, thyroid cancer, Hair loss, heat intolerance or cold intolerance Skin Skin: No rash or changing moles Breast Breast: No left breast lump, right breast lump, nipple discharge, breast pain, abnormal mammogram, abnormal US or breast enlargement Musc Musculoskeletal: Yes arthritis; No back problems, rheumatoid arthritis, gout or joint pain Cardio Cardiovascular: Yes high blood pressure; No murmur, pacemaker, heart disease, atrial fibrillation, heart attack, heart stent, palpitations, shortness of breat with exertion or chest pain Psych Psychiatric: No depression, anxiety or hearing voices Resp Respiratory: No shortness of breath, No sleep apnea, No cough, No COPD, No asthma, No emphysema and No wheezing Gastro Gastrointestinal: No abdominal pain, No nausea or vomiting, No diarrhea, No constipation, No blood in stool, No acid reflux, No hemorrhoids, No ulcers, No gallbladder problem and No black,tarry stools Giovanni Hematologic: No blood thinners, No blood disorders, No bleeding, No anemia and No blood clots Neuro Neurologic: No system reviewed and no additional complaints, except as documented, No as per HPI, No abnormal gait, No abnormal hearing, No abnormal movements, No abnormal speech, No behavioral changes, No burning sensations, No confusion, No convulsions, No disequilibrium, No dizziness, No localized weakness, No frequent falls, No headache(s), No lack of coordination, No loss of vision, No memory loss, No numbness, No other visual disturbances, No radicular pain, No restless legs, No sensory deficit, No syncope, No tingling, No tremor(s), No weakness and No other Exam Const General: cooperative Orientation: alert and oriented x3 HENMT Head: normal to inspection Neck Neck: normal visual inspection and full ROM Chest Chest palpation & inspection: normal inspection of the chest Resp Effort & Inspection: normal respiratory effort Auscultation: clear to auscultation bilaterally Cardio Rate: regular rate Rhythm: regular rhythm GI Inspection: non-distended Palpation: soft and nontender Skin General: no rashes or lesions noted Neuro General: patient alert and patient oriented x3 Extrem General: full ROM Psych Appearance: grossly normal Mental Status: mental status grossly normal Assessment and Plan Assessment and Plan (1) Encounter for insertion of venous access port: Status: Acute Plan: I discussed chest port placement with him in detail. I will attempt a right chest port but if this is too stenotic I will place the left. I discussed the risks including but not limited to bleeding, infection, injury other organs, pneumothorax, line infection or DVT. Patient understands all the risks and is willing to proceed. Jose Michele MD Pager: [facility] [address] [place] [address], [address] [place] [address] Office: I have examined the patient and the H&P has been reviewed. There are no clinical changes since date of exam.
[2024-01-09] MEDS: Cefazolin 2 GM in 0.9% Normal Saline (100mL Bag) 100 ML IV (11:17)
[2024-01-09] MEDS: Lidocaine 1% /Epi 1:100 (20ml) 20 ML Vial (11:30)
[2024-01-09] MEDS: Bupivacaine Mpf 0.5% 30 ML VIAL (11:30)
--- NOTE | 2024-01-09 12:00 | OP.PCM_ITS ---
Report of Operation Date of Procedure: 01/09/24 Pre-Operative Diagnosis: Need for vascular access for chemotherapy Post-Operative Diagnosis: Same Surgery/Procedure Performed:: Ultrasound and fluoroscopy guided left chest port placement utilizing left IJ Type of Anesthesia: Local MAC Specimen's removed: None Estimated Blood Loss (mL): 10 Description of Procedure: After obtaining informed consent patient was brought back to the operating room MAC anesthesia was induced and the left chest and neck were prepped in normal sterile fashion. Ultrasound was used to evaluate both IJs and the left IJ was selected. Next, using a needle, the left IJ was accessed and a guidewire was passed on into the superior vena cava under fluoroscopy guidance. A small incision was made over the puncture site and the dilator introducer was placed over the guidewire. Next this was capped and the pocket was made for the port. 1% lidocaine with epinephrine was injected in the proposed port site. An incision was made with scalpel. Electrocautery was used to make a pocket under the skin and subcutaneous tissue. Hemostasis was obtained. Next, the catheter was tunneled up to the neck incision site and placed through the introducer. The peel-away introducer was removed and the position of the catheter was confirmed on fluoroscopy. Next, the catheter was trimmed and attached to the port with the locking device. Interrupted 2-0 Vicryl sutures were used to anchor the port to the chest wall and then the port was placed inside the pocket. The pocket was then flushed with saline and the port irrigated with saline. There was good blood return and the port flushed easily. Next, heparin was injected into the port. The skin was closed with subcutaneous interrupted 3-0 Vicryl sutures. A single 3-0 Vicryl sutures placed under the skin at the neck incision site. Steri-Strips were placed as well as op sites. Patient tolerated procedure well, was taken to PACU in stable condition. Chest x-ray will be obtained. Grafts/Implants Used: 8 [place] PowerPort Admit VTE Documentation VTE Mechan Device Prophylaxis: SCD's
--- NOTE | 2024-01-09 12:00 | PCM.POST.ANE ---
Anesthesia: Postop Eval I Current Vital Signs Temperature: 97.5 F Pulse Rate: 67 Blood Pressure: 144/68 Respiratory Rate: 18 Pulse Ox: 98 Oxygen Delivery Method: Room Air Assessment Airway patent: Yes Spontaneous unlabored respirations: Yes Mental status: Awake and Calm nausea: No Vomiting: No Anesthesia Complication: No Fluid Hydration Crystalloid volume administer (ml): 100 Total IV fluid infused: 100 Progress Note Anesthesia document: Postop Eval 1 completed: Yes
--- NOTE | 2024-01-09 12:01 | EX.PCM.DISCH ---
Discharge Instructions Procedure Port-A-Cath Diet Discharge Diet: Light diet - advance as tolerated (Pain medication may cause nausea. You should typically eat light foods as you take your pain medication.) Activity Discharge Activity: Return to Normal Activity and May Shower (with your bandage in place in 1-2 days after surgery. DO NOT SHOWER WHEN YOUR PORT IS ACCESSED.) Dressing / Incision Call your doctor if your incision/area has: Continuous Slow Oozing, Sudden Increased Bleeding, Increased Pain/ Swelling, Increased Redness and Foul Smelling Discharge Call your doctor if you observe: Fever of 101 or Higher Remove Dressing in: 2 days Cleanse incision/area with: Soap & Water Follow Up Care Please Follow Up With: Jose Michele MD When: as needed [phone] Test Results: Test results from this visit will be discussed in further detail at your follow-up appointment, if applicable. Discharge Plan Admission Attending Provider: Jose Michele Primary Care Provider: Rigo Izaguirre Instructions Print Language: Hungarian Discharge Orders/Prescriptions Prescriptions: No Action amlodipine 10 mg tablet 10 mg PO DAILY abiraterone 500 mg tablet 1,000 mg PO DAILY prednisone 5 mg tablet 5 mg PO BID Qty: 60 1RF metoprolol succinate 100 MG tablet 100 mg PO DAILY losartan 100 MG tablet 100 mg PO DAILY Patient Comments: BP metformin 500 MG tablet 500 mg PO DAILY rosuvastatin 5 mg tablet 5 mg PO DAILY hydralazine 25 mg Tablet 25 mg PO TID 30 Days Qty: 90 0RF lidocaine-prilocaine 2.5-2.5 % cream 1 applic topical ONCE PRN (Reason: port access) 30 Days Qty: 30 2RF ondansetron 8 mg tablet,disintegrating 8 mg PO Q8H PRN (Reason: nausea and vomiting) Qty: 30 1RF omeprazole 20 mg capsule,delayed release(DR/EC) 20 mg PO DAILY Qty: 30 1RF Referrals / Follow Up: Rigo Izaguirre MD [Primary Care Provider] - Disposition Disposition (needs filled in before D/C Order can be placed): Home, Self Care
--- NOTE | 2024-01-09 12:14 | RAD_ITS ---
STUDY: X-RAY CHEST REASON FOR EXAM: Male, 78 years old. Line placement -- in pacu TECHNIQUE: Single AP portable view of the chest. COMPARISON: Comparison is made with prior study dated September 06, 2013. FINDINGS: A left-sided Port-A-Cath has been placed with the tip at the junction of the superior vena cava and right atrium. EKG electrodes are seen. The lungs are clear and expanded. There is no demonstrated pleural abnormality. Normal size heart. Normal mediastinum and dong. Normal visualized pulmonary arteries. There is atherosclerotic calcification of the aortic arch with tortuosity. There are diffuse degenerative changes of the visualized thoracic spine. Normal visualized ribs, clavicles, and shoulders. There is no demonstrated abnormality of the visualized soft tissue structures of the upper abdomen. RAD/CXR for Line Placement IMPRESSION: A left-sided Port-A-Cath has been placed with the tip at the junction of the superior vena cava and right atrium. Electronically Signed: Matthew Umana MD at 12:43 EDT ,
--- NOTE | 2024-01-09 14:02 | POSTOPAN2_ITS ---
Anesthesia Postop Eval I Sum Postop Eval Completion status Anesthesia document: Postop Eval 1 completed: Yes Anesthesia Postop Eval I Summary Anesthesia Postop Eval I Summary: Anesthesia Postop Eval I: Assessment Summary Airway patent Yes 01/09/24 12:01 FAMILY AND DIVORCE LEGAL ASSISTANT.SCHR Spontaneous unlabored Yes 01/09/24 12:01 FAMILY AND DIVORCE LEGAL ASSISTANT.SCHR respirations Mental status Awake,Calm 01/09/24 12:01 FAMILY AND DIVORCE LEGAL ASSISTANT.SCHR nausea No 01/09/24 12:01 FAMILY AND DIVORCE LEGAL ASSISTANT.SCHR Vomiting No 01/09/24 12:01 FAMILY AND DIVORCE LEGAL ASSISTANT[facility] Anesthesia Postop Eval I: Fluid Summary Crystalloid volume administer 100 01/09/24 12:01 FAMILY AND DIVORCE LEGAL ASSISTANT.SCHR (ml) Colloids volume administered ( ml) Blood Product volume administered (ml) Total IV fluid infused 100 01/09/24 12:01 FAMILY AND DIVORCE LEGAL ASSISTANT[facility] Anesthesia Postop Eval I: Summary Notes Anesthesia Complication No 01/09/24 12:01 FAMILY AND DIVORCE LEGAL ASSISTANT.[facility] Anesthesia Complication Comment: Post-operative progress note Anesthesia: Postop Eval II Evaluation Mental status: Awake and Calm Pain Level: 1 nausea: No Vomiting: No Complications Anesthesia Complication: No
--- NOTE | 2024-01-09 14:02 | PCM.POSTANE2 ---
Anesthesia Postop Eval I Sum Postop Eval Completion status Anesthesia document: Postop Eval 1 completed: Yes Anesthesia Postop Eval I Summary Anesthesia Postop Eval I Summary: Anesthesia Postop Eval I: Assessment Summary Airway patent Yes 01/09/24 12:01 COSMETIC CHEMIST.SCHR Spontaneous unlabored Yes 01/09/24 12:01 COSMETIC CHEMIST.SCHR respirations Mental status Awake,Calm 01/09/24 12:01 COSMETIC CHEMIST.SCHR nausea No 01/09/24 12:01 COSMETIC CHEMIST.SCHR Vomiting No 01/09/24 12:01 [facility] Anesthesia Postop Eval I: Fluid Summary Crystalloid volume administer 100 01/09/24 12:01 COSMETIC CHEMIST.SCHR (ml) Colloids volume administered ( ml) Blood Product volume administered (ml) Total IV fluid infused 100 01/09/24 12:01 COSMETIC CHEMIST.[facility] Anesthesia Postop Eval I: Summary Notes Anesthesia Complication No 01/09/24 12:01 COSMETIC CHEMIST.[facility] Anesthesia Complication Comment: Post-operative progress note Anesthesia: Postop Eval II Evaluation Mental status: Awake and Calm Pain Level: 1 nausea: No Vomiting: No Complications Anesthesia Complication: No
== END 2024-01-09 13:17 | disposition home or self-care (01) ==
LOC: SDC 09:55 → AC 09:56
PROVIDERS: PCP Family Medicine; Referring Provider Surgery; Visit Provider Surgery
PROC: (CPT 36561; principal; 2024-01-09 11:20)
DX: Z45.2 Encounter for adjustment and management of vascular access device (principal); C61 Malignant neoplasm of prostate; E11.9 Type 2 diabetes mellitus without complications; E78.00 Pure hypercholesterolemia, unspecified; I10 Essential (primary) hypertension; Z79.899 Other long term (current) drug therapy; Z79.84 Long term (current) use of oral hypoglycemic drugs; Z86.16 Personal history of COVID-19
CPT/HCPCS: 36561; 00532; 71045; 77001; 82962; J7120; C1788; J2405

== ENCOUNTER → 2024-02-09 | Outpatient (CLI) | payer MEDICARE, OTHER, SELFPAY ==
--- NOTE | 2024-02-09 09:05 | VDLE_ITS ---
Reason For Study: BLE Swelling RIGHT LEFT GSV is normal. GSV is normal. CFV is compressible, spontaneous, phasic, CFV is compressible, spontaneous, phasic, competent and demonstrates normal competent, and demonstrates normal augmentation. augmentation. FV is compressible, spontaneous, phasic, FV is compressible, spontaneous, phasic, competent and demonstrates normal competent and demonstrates normal augmentation. augmentation. POP V is compressible, spontaneous, phasic, POP V is compressible, spontaneous, phasic, competent and demonstrates normal competent and demonstrates normal augmentation. augmentation. T/P Trunk is compressible. T/P Trunk is compressible. PTV is compressible. PTV is compressible. RT PerV is compressible. LT PerV is compressible. Procedure This is a venous duplex using B-mode, color flow and spectral Doppler. Exam performed in department. The study was technically difficult due to limited patient mobility. Limited views were obtained. A preliminary report was called and/or faxed to [facility] Oncology. VL/Venous Duplex US - Pradeep Extrem Interpretation Summary Deep veins of the lower extremities are bilaterally patent and compressible seg mentally. There is no evidence of deep vein thrombosis on either side. Valvular competence appears in tact within the proximal deep venous systems bilaterally. The great saphenous veins appear bila terally patent and compressible segmentally. Ordering Physician: Domenica Salvador Referring Physician: Rigo Izaguirre Performed By: Aidan Banegas, RVT
== END | disposition home or self-care (01) ==
LOC: CVS 09:04
PROVIDERS: PCP Family Medicine; Referring Provider Nurse Practitioner Family; Visit Provider Nurse Practitioner Family
DX: R22.43 Localized swelling, mass and lump, lower limb, bilateral (principal)
CPT/HCPCS: 93970

== ENCOUNTER 2024-04-02 10:19 | Inpatient (IN) | payer MEDICARE, OTHER, SELFPAY ==
[2024-04-02] VITALS (11 sets, daily range): BP systolic 118–144; BP diastolic 60–66; PULSE 89–104; RESP 16–23; TEMP 36.2–36.7; O2SAT 96–100; BMI 23.3; BMI 23.6
--- NOTE | 2024-04-02 10:31 | EKG12_ITS ---
Test Reason : WEAKNESS Blood Pressure : */* mmHG Vent. Rate : 102 BPM Atrial Rate : 102 BPM P-R Int : 142 ms QRS Dur : 124 ms QT Int : 380 ms P-R-T Axes : 76 268 48 degrees QTcB Int : 495 ms Sinus tachycardia Right bundle branch block Abnormal ECG Confirmed by YUE LUU, DENICE ([id number]), slot editor ALLEN CELIS ([id number]) on 04/03/2024 1:50:24 PM Referred By: Confirmed By: DENICE TURNER MD
--- NOTE | 2024-04-02 10:32 | EDS_ITS ---
HPI History of Present Illness Chief Complaint: Weakness Detail of Chief Complaint: Weakness and respiratory symptoms Informant: patient and EMS Onset/Context/Timing Onset: Days ( My last good day was Tuesday .) Context: Sudden Onset Timing: Continuous Quality: Weakness, no energy, cough and dyspnea Location: Generalized and respiratory Current Severity: Mild Maximum Severity: Moderate Worsened by: Attempt to do anything Relieved by: Nothing Associated Symptoms Associated Symptoms: Subjective fever with chills Narrative Narrative: Patient is an 79-year-old male with history of prostate cancer and metastasis to liver. He is on chemotherapy. He states he has had diarrhea since onset of chemo 9 weeks ago. He received chemo last week. He was unable to give me exact date. He is seen by the tax map technician/oncologist affiliated with the hospital. He does have history of chemo induced nausea and vomiting. Patient denies headache, visual, ocular auditory symptoms. Patient does endorse nasal drainage without rhinorrhea or congestion. He denies sore throat. He does endorse cough. Cough is nonproductive. He does endorse shortness of b reath since starting Tuesday. He denies chest discomfort. He denies abdominal pain, nausea or vomiting. He had diarrhea for the past 9 weeks. He denies dysuria, frequency, urgency or hematuria. He has not noted any skin lesions. Patient states he has no energy. Prior similar symptoms: Yes Recent Illness/Hospitalization: Yes [facility] Medical History Generalized weakness CINV (chemotherapy-induced nausea and vomiting) 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 Anemia Edema of both lower legs Prerenal azotemia Diarrhea due to drug Encounter for education Elevated PSA Torn meniscus Chronic pain COVID History of Clostridium difficile infection Indwelling urethral catheter present Diabetes Gout High cholesterol Non-smoker History of anal cancer Cancer HTN (hypertension) Home Medications ?Medication ?Instructions ?Recorded ?Last Taken ?Type losartan 100 mg tablet 100 mg PO DAILY bp 06/01/13 01/09/24 History metoprolol succinate 100 mg 100 mg PO DAILY bp 06/01/13 01/09/24 History tablet,extended release 24 hr metformin 500 mg tablet,extended 500 mg PO DAILY DIABETES 04/25/20 03/05/23 History release 24 hr rosuvastatin 5 mg tablet 5 mg PO DAILY CHOLESTEROL 12/16/21 03/04/23 History amlodipine 10 mg tablet 10 mg PO DAILY BP 01/07/23 01/09/24 History hydralazine 25 mg tablet 25 mg PO TID 30 days #90 tabs 03/23/23 Unknown Rx abiraterone 500 mg tablet 1,000 mg PO DAILY 12/30/23 Unknown History lidocaine-prilocaine 2.5 %-2.5 % 1 applic topical ONCE PRN port 01/09/24 Unknown Rx topical cream access 30 days #30 grams omeprazole 20 mg capsule,delayed 20 mg PO DAILY #30 caps 01/09/24 Unknown Rx release potassium chloride 20 mEq 40 meq (2 x 20 mEq) PO DAILY 30 03/08/24 Unknown Rx tablet,extended release(part/cryst) days #60 tabs prednisone 5 mg tablet 5 mg PO BID #60 tabs 03/14/24 Unknown Rx loperamide 2 mg capsule (Imodium 2 mg PO Q6H PRN loose stool 03/22/24 Unknown History A-D) ondansetron HCl 8 mg tablet 8 mg PO Q8H #30 tabs 03/28/24 Unknown Rx prochlorperazine maleate 10 mg 10 mg PO Q6H PRN nausea and 03/28/24 Unknown Rx tablet (Compazine) vomiting #30 tabs Allergy/AdvReac Type Severity Reaction Status Date / Time hydromorphone (From Dilaudid) AdvReac Other Verified 03/28/24 11:04 meperidine (From Demerol) AdvReac Nausea/Vom/ Verified 03/28/24 11:04 Diarrhea Family History Father Myocardial infarction Surgical History Hx of colectomy History of total left knee replacement S/P total knee arthroplasty Hx of cystoscopy Hx of left knee surgery Hx of cystoscopy Hx of cystoscopy Hx of cystoscopy (~05/28/20) Hx of cystoscopy (~01/23/20) Hx of dilation of urethra Hx of cystoscopy Hx of cystoscopy Hx of cystoscopy History of removal of Port-a-Cath Hx of colonoscopy Hx of cataract surgery History of back surgery History of cholecystectomy History of appendectomy Social History household members: spouse Smoking Status: Never smoker alcohol intake: never substance use type: does not use ROS ROS ED Constitutional Constitutional ED: Reports chills, fever(s), subjective, sweats and weight loss Eyes Eyes: Denies blurry vision or change in vision ENT ENT ED: Denies ear pain, rhinorrhea or sore throat Cardiovascular Cardiovascular: Denies chest pain, orthopnea, palpitations or paroxysmal nocturnal dyspnea Respiratory/Chest Respiratory/Chest: Reports cough, dyspnea and dyspnea on exertion; Denies orthopnea, paroxysmal nocturnal dyspnea or sputum Gastrointestinal Gastrointestinal: Reports diarrhea; Denies abdominal pain, constipation, melena, nausea or vomiting Genitourinary Genitourinary ED: Denies dysuria, hematuria or urinary frequency Musculoskeletal Musculoskeletal: Denies arthralgias, back pain or myalgias Integumentary Denies rash Neurologic Neurologic: Reports weakness; Denies paresthesias Hematologic/Lymphatic Hematologic/Lymphatic: Reports systems reviewed and no addt'l complaints, except as documented EXAM Physical Exam Const Vital Signs: 04/02/24 10:20 04/02/24 11:44 04/02/24 12:05 Temperature 98.0 F 97.9 F 97.6 F L Temperature Source Axillary Oral Oral Pulse Rate 104 H 97 92 Respiratory Rate 16 23 H 16 Blood Pressure 118/60 125/62 H 122/62 H Blood Pressure Mean 79 83 82 Pulse Ox 98 96 97 Oxygen Delivery Method Room Air Room Air 04/02/24 13:00 Temperature 97.9 F Temperature Source Oral Pulse Rate 93 Respiratory Rate 17 Blood Pressure 137/66 H Blood Pressure Mean 89 Pulse Ox 96 Oxygen Delivery Method Room Air Positive well nourished and well developed Constitutional Narrative: Patient appears pale. He does not appear well either. General Appearance ED: well developed, NAD and pallor; Negative for cyanotic or diaphoretic HEENT Reports dry mucous membranes HEENT Narrative: Head is atraumatic no cephalic. Ears normal. Nares patent. Mouth ED: Yes dry mucous membranes Mouth: dry mucous membranes Eyes PERRL and EOMs intact bilaterally General Eye ED: Negative for pale conjunctiva or scleral icterus Neck no lymphadenopathy, supple and no JVD Resp normal respiratory effort and clear to auscultation bilaterally Cardio regular rate, regular rhythm, S1 normal heart sound and no murmurs GI normal to inspection, nondistended, normoactive bowel sounds, non-tender, non- distended and no masses; Negative for hepatosplenomegaly Back/Spine no CVA tenderness Back/Spine Narrative: Inspection is normal. Extremity Extremity Narrative: Pale with no palpable DP pulse either side. Capillary refill is less than 2 seconds. He does have stigmata of peripheral arterial disease. Neuro oriented x3 and CN's II-XII intact bilaterally Sensorium / Orientation: alert Psych mental status grossly normal Skin no rashes or lesions noted and No skin turgor normal General Skin Exam: pallor; Negative for jaundice MDM MDM MDM Narrative Medical decision making narrative: In light of patient having chemo last week with subjective fever and chills infectious as well as metabolic workup was undertaken. Since patient is not febrile at this time, hypoxic or tachypneic blood cultures were not ordered. If blood work is remarkable for neutropenia or there is a source of infection will obtain blood cultures. Review of prior records reveals patient has chronic anemia with hemoglobin varying between 10.0 11.2. Patient does have evidence of renal insufficiency with creatinine varying between 1.28 and 1.61. BUN to creatinine ratio is been elevated for the past 1 month. He has seen by Narda Salvador. History & Record Review Additional record(s) reviewed:: Prior outpatient record, Prior ED visit and Prior labs Lab Data Attestation: I reviewed the patient's lab results. Lab results narrative: CBC reveals anemia. This is chronic. White count differential are normal. Basic metabolic panel reveals a nonanion gap acidosis. Patient was noted to have a nonanion gap acidosis March 28 as well. BUN and creatinine are 41 and 1.64 which is approximately baseline. BUN to creatinine ratio 25:1. Labs: Laboratory Results - last 24 hr 04/02/24 04/02/24 10:40 12:31 WBC 10.9 RBC 3.94 L Hgb 11.3 L Hct 34.8 L MCV 88.3 MCH 28.7 MCHC 32.5 RDW Std Deviation 57.4 H RDW Coeff of [place] 18.3 H Plt Count 210 MPV 9.9 Immature Gran % (Auto) 0.600 Neut % (Auto) 83.2 H Lymph % (Auto) 4.2 L [place] % (Auto) 11.8 H Eos % (Auto) 0.0 Baso % (Auto) 0.2 Absolute Neuts (auto) 9.1 H Absolute Lymphs (auto) 0.46 L Nucleated RBC % 0 Sodium 140 Potassium 3.3 L Chloride 114 H Carbon Dioxide 16.0 L Anion Gap 10 BUN 41 H Creatinine 1.64 H Estim Creat Clear Calc 36.48 Est GFR (MDRD) Af Amer 52 L Est GFR (MDRD) Non-Af 43 L BUN/Creatinine Ratio 25.0 H Glucose 145 H Lactic Acid 1.3 Calcium 7.9 L Total Bilirubin 0.80 AST 16 ALT 20 Alkaline Phosphatase 66 Total Protein 4.4 L Albumin 1.8 L Globulin 2.6 Albumin/Globulin Ratio 0.7 L Urine Color Carol Urine Clarity Cloudy Urine pH 8.0 Ur Specific [place] 1.010 Urine Protein 500 H Urine Glucose (UA) Normal Urine Ketones 5 H Urine Occult Blood 150 H Urine Nitrite Negative Urine Bilirubin Negative Urine Urobilinogen Normal Ur Leukocyte Esterase 500 H Urine RBC 5-10 SEEN Urine WBC 25-50 SEEN Ur Squamous Epith Cells 0 SEEN Amorphous Sediment 3+ PHOS Urine Bacteria 3+ Urine Mucus 0 SEEN Urinalysis is cloudy to turbid. Concern he may have a urinary tract infection. Macro is positive for protein, ketones, occult blood and leukoesterase. Micro is pending at time of this addendum 1319 Radiography Chest X-Ray - ED: 2 View, Read by ED Physician, Unchanged, Heart, Lungs (Chronic changes noted.), Mediastinum, Bony Structures, No Acute Disease and Chronic Changes Diagnostic Testing: Clinical Impression(s) from Imaging Studies Chest X-Ray 04/02/24 10:50 IMPRESSION: No acute abnormality is seen. Electronically Signed: Matthew Umana MD at 11:06 EST , EKG Initial EKG: Attestation: I personally reviewed and interpreted this EKG as follows: Interpretation: Sinus Tachycardia (Rate is 102. There is evidence of right bundle branch block. DC interval is 142 ms Rickers duration 124 ms. QT is 390 ms.) Management Discussion w/another healthcare provider: Hospitalist (Case was discussed with Dr. Karolina Paz. Patient be admitted [facility]. CT of the abdomen was obtained to assess for obstruction since he has had increasing creatinine levels.) Treatment and Re-Evaluation :: Because patient is unable to stand or ambulate and he does have evidence of infection will contact hospitalist for admission. Dr. Gonzales his oncologist was paged as well since he received chemo last week. Discharge Plan Triage Chief Complaint: Weakness ED Provider: Noé Malik Dx/Rx/DC Orders Clinical Impression: Complicated urinary tract infection, Chemotherapy induced diarrhea, Diabetes, 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, Generalized weakness, Acute on chronic kidney failure Prescriptions: No Action amlodipine 10 mg tablet 10 mg PO DAILY abiraterone 500 mg tablet 1,000 mg PO DAILY potassium chloride 20 mEq tablet,ER particles/crystals 40 meq PO DAILY 30 Days Qty: 60 0RF loperamide [Imodium A-D] 2 mg capsule 2 mg PO Q6H PRN (Reason: loose stool) ondansetron HCl 8 mg tablet 8 mg PO Q8H Qty: 30 2RF prochlorperazine maleate [Compazine] 10 mg tablet 10 mg PO Q6H PRN (Reason: nausea and vomiting) Qty: 30 2RF metoprolol succinate 100 MG tablet 100 mg PO DAILY losartan 100 MG tablet 100 mg PO DAILY Patient Comments: BP metformin 500 MG tablet 500 mg PO DAILY rosuvastatin 5 mg tablet 5 mg PO DAILY hydralazine 25 mg Tablet 25 mg PO TID 30 Days Qty: 90 0RF lidocaine-prilocaine 2.5-2.5 % cream 1 applic topical ONCE PRN (Reason: port access) 30 Days Qty: 30 2RF omeprazole 20 mg capsule,delayed release(DR/EC) 20 mg PO DAILY Qty: 30 1RF prednisone 5 mg tablet 5 mg PO BID Qty: 60 3RF Primary Care Provider: Rigo Izaguirre Referrals: Rigo Izaguirre MD [Primary Care Provider] - Print Language: Peruvian Disposition Disposition: Acute Care Hospital [facility]
[2024-04-02 10:49] LABS: Absolute Lymphocyte Count 0.46 X10^3/uL (0.83-4.51); Absolute Neutrophil Count 9.1 X10^3/uL (2.0-7.7); Basophil# 0.02 X10^3/uL; Basophil% 0.2 % (0-1); Hematocrit 34.8 % (40-54); Hemoglobin 11.3 g/dL (13.0-16.5); Lymphocyte # 0.46 X10^3/ul (0.83-4.51); Lymphocyte % 4.2 % (19-41); Mean Corp Hgb Conc 32.5 g/dL (32-36); Mean Corpuscular Hgb 28.7 pg (27.0-32.0); Mean Corpuscular Volume 88.3 fL (80-94); Mean Platelet Vol. 9.9 fl (6.2-12.0); Monocyte# 1.28 X10^3/uL; Monocyte% 11.8 % (0-10); NRBC Flagged by Analyzer 0 % (0-5); Neutrophil # 9.05 X10^3/uL (2.7-7.7); Neutrophil % 83.2 % (47-70); POSITIVE DIFFERENTIAL YES; Platelet Count 210 K/mm3 (150-450); RBC Distribution Width CV 18.3 % (11.6-14.6); RBC Distribution Width SD 57.4 fl (35.1-43.9); Red Blood Count 3.94 M/mm3 (4.6-6.2); White Blood Count 10.9 K/mm3 (4.4-11.0)
--- NOTE | 2024-04-02 10:50 | RAD_ITS ---
STUDY: X-RAY CHEST REASON FOR EXAM: Male, 79 years old. Cough, dyspnea . Recent chemotherapy treatment. TECHNIQUE: AP and lateral views of the chest. COMPARISON: Comparison is made with prior study dated January 09, 2024. FINDINGS: A left-sided dash catheter seen with the tip at the junction of the superior vena cava and right atrium. EKG electrodes are seen. The lungs are clear and expanded. There is no demonstrated pleural abnormality. Normal size heart. Normal mediastinum and dong. Normal visualized pulmonary arteries. Normal visualized aortic arch and descending thoracic aorta. There are diffuse degenerative changes of the visualized thoracic spine. Normal visualized ribs, clavicles, and shoulders. There is no demonstrated abnormality of the visualized soft tissue structures of the upper abdomen. RAD/Chest PA and Lateral IMPRESSION: No acute abnormality is seen. Electronically Signed: Matthew Umana MD at 11:06 [facility] ,
[2024-04-02 11:05] LABS: ALB/GLOB Ratio 0.7 RATIO (0.9-2.4); AST(SGOT) 16 U/L (15-37); Alanine Aminotransfer ALT/SGPT 20 U/L (16-61); Albumin, Serum 1.8 g/dL (3.2-5.0); Alkaline Phosphatase 66 U/L (45-117); Anion Gap 10 (5-15); BUN 41 mg/dL (7-18); Calcium,Total 7.9 mg/dL (8.5-10.1); Chloride 114 mmol/L (98-107); Creatinine, Serum 1.64 mg/dL (0.70-1.30); EST Glomerular Filtration Rate 43 mL/min (>60); Est Glom Filt Rate - Afr Amer 52 mL/min (>60); Estimated Creatinine Clearance 36.48 ml/min; Globulin 2.6 g/dL (2.2-4.2); Glucose 145 mg/dL (74-106); Potassium 3.3 mmol/L (3.5-5.1); Protein, Total 4.4 g/dL (6.4-8.2); Sodium Level 140 mmol/L (136-145)
[2024-04-02 11:24] LABS: Lactic Acid 1.3 mmol/L (0.4-1.9)
[2024-04-02 12:38] LABS: Mucous, Urine 0 SEEN /hpf (<or=2+); Squamous Epithelial Cells - UA 0 SEEN /hpf (0-5)
[2024-04-02 12:49] LABS: Color, Urine Amber (Yellow); Glucose, Dipstick Normal (Normal); Ketone-Dipstick 5 mg/dl (Negative); Leukocyte Esterase-Dipstick 500 /ul (Negative); Nitrite-Dipstick Negative (Negative); Occult Blood-Urine 150 /ul (Negative); Protein-Dipstick 500 mg/dl (Negative); Urine Bilirubin Dipstick Negative (Negative); Urine Clarity Cloudy (Clear); Urine Urobilinogen Normal (Normal)
[2024-04-02 13:28] LABS: White Blood Cells 25-50 SEEN /hpf (0-5)
[2024-04-02 13:29] LABS: Amorphous Sediment 3+ PHOS; Bacteria 3+ /hpf (None Seen); Red Blood Cells-Urine 5-10 SEEN /hpf (0-5)
[2024-04-02] MEDS: Ceftriaxone 2 GM in 0.9% Normal Saline (50mL MB+) 50 ML IV (13:47)
--- NOTE | 2024-04-02 13:49 | CT_ITS ---
STUDY: CT ABDOMEN AND PELVIS WITHOUT CONTRAST REASON FOR EXAM: Male, 79 years old. History of metastatic prostate cancer. Weakness. Bilateral renal stents. RADIATION DOSAGE (If Supplied By Facility): CTDIvol = ( 7.17 ) mGy, DLP = ( 377.69 ) mGycm TECHNIQUE: Transaxial images were obtained from the dome of the diaphragm to the symphysis pubis without oral contrast, and without intravenous contrast. Sagittal and coronal images were reconstructed. Individualized dose optimization techniques were used for this CT. COMPARISON: Comparison is made with prior study dated December 29, 2023. FINDINGS: Mild degree of increased markings at the lung bases suggest some bibasilar atelectasis. Coronary artery calcification. Several hypodense lesions are seen throughout the liver although without intravenous contrast ministration they are not as well visualized as prior study suggestive of metastatic deposits. There are surgical clips in the gallbladder fossa consistent with a prior cholecystectomy. Normal spleen. Normal pancreas. Normal bilateral adrenal glands. Bilateral hydronephrosis and hydroureter. Bilateral double-J stent catheters are seen. Nonspecific bilateral perinephric stranding. Stable 5.47 x 5.8 cm cyst in the posterior mid and inferior aspects of the right kidney. Normal visualized stomach. Normal small intestine. Surgical anastomosis at the level of the sigmoid colon. A colostomy is seen in the left lower anterior quadrant. The appendix is visualized and appears normal. There is diffuse atherosclerotic calcification of the abdominal aorta and its major visceral branches, without a demonstrated aneurysm. Normal inferior vena cava. Normal retroperitoneum. Diffuse bladder wall thickening. A Guthrie catheter is seen within the urinary bladder. Stable sacral soft tissue density. Heterogeneous appearance of the prostate with calcifications. Normal abdominal wall. There are diffuse degenerative changes of the visualized lumbar spine. There is evidence of degenerative changes of the sacroiliac joints bilaterally. 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 CT/Abdomen/Pelvis without Cont IMPRESSION: Bilateral hydronephrosis and hydroureter down to the level of the bladder with bilateral double-J stent catheters. Bladder wall thickening. Guthrie catheter is seen within the urinary bladder. Stable presacral soft tissue density. Findings in keeping with hepatic metastasis. Electronically Signed: Matthew Umana MD at 14:46 EST ,
[2024-04-02 14:50] LABS: Base Excess -8 mmol/L (-2 to +2); Bicarbonate 15.7 mmol/L (22-26); Blood Gas Specimen Type ART; Mode Not entered; O2 Delivery Device Room Air; PO2 101 mmHG (75-100); SITE R Brach; SO2 98 % (95-99); Total Carbon Dioxide 16 mmol/L; pCO2 22.8 mmHg (35-45); pH 7.45 (7.35-7.45)
--- NOTE | 2024-04-02 15:06 | PCM.HP.STD ---
HPI - General General Date of Admission: 04/02/24 Date of Service: 04/02/24 Chief Complaint: Malaise/Generalized Weakness HPI Narrative VILMA SAM, is a 79 M who presented to the emergency department at [facility] after few days of general malaise and fatigue. Patient states that he started feeling poorly over the weekend and reported today is just not even been able to get out of bed has been feeling so badly. He received his last chemotherapy with docetaxel on 03/28 (sees Dr. Gonzales). Patient states he has not been tolerating this chemo well with diarrhea and nausea. He states that he has tried the loperamide and it does not seem to help his diarrhea at all. He stated he stopped taking abiraterone (Xtandi) over the last couple days due to the severe side effects and he feels now he is getting constipated. He has an ostomy and there is hard stool coming out of his ostomy at this point. He states that he does have stents in place for his ureters and they are supposed to be changed every 6 months however it has been sometime since they have been changed. He is unable to tell me the last time they were addressed. It appears per our records here that his last operative note at which time these were addressed was from 08/26/2023. Patient states his appetites been poor and this has been fairly consistent since he has been on his chemo. He has had some upper respiratory symptoms with a cough that is dry and nonproductive. He denies any nasal drainage or congestion. He denies headache. Vital signs on presentation showed temperature of 98, heart rate 104, blood pressure 118/60, respiratory rate 16 and pulse ox was 98% on room air. CBC shows a normal white count however he has a significant left shift with an 83.2% neutrophilia. He has a stable anemia with a hemoglobin of 11.3 and platelet counts normal. Chemistry showed normal sodium with hypokalemia and a potassium of 3.3, elevated chloride of 144 and a serum bicarb of 16. BUN is 41 and serum creatinine is 1.64 (baseline appears to fluctuate however it appears his baseline is about 1.2-1.3. His serum creatinine is slowly been worsening over time. Lactate was normal at 1.3. Liver functions normal. UA was obtained and consistent with significant infection showing some ketones, leukoesterase at 500, white cells, and 3+ bacteria. ABG was obtained and showed a pH of 7.45/pCO2 of 22.8/pO2 of 101 on room air and a bicarb of 15.7. Chest x-ray is unremarkable. With his UA looking away did I requested a CT of the abdomen pelvis to be done which showed bilateral hydronephrosis and hydroureter down to the level of the bladder with bilateral double-J stents/catheters in place, bladder wall thickening, Lyman in place, stable presacral soft tissue density and findings consistent with hepatic metastasis. Previous urine cultures have been done in March of last year which showed Enterococcus and November of this year which showed Citrobacter. Both organisms were fairly sensitive. Will broaden him out from ceftriaxone to Zosyn and urine culture was ordered prior to antibiotics being administrated. 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 Anemia Edema of both lower legs Prerenal azotemia Diarrhea due to drug Encounter for education Elevated PSA Torn meniscus Chronic pain COVID History of Clostridium difficile infection Indwelling urethral catheter present Diabetes Gout High cholesterol Non-smoker History of anal cancer Cancer HTN (hypertension) Home Medications ?Medication ?Instructions ?Recorded ?Last Taken ?Type losartan 100 mg tablet 100 mg PO DAILY bp 06/01/13 01/09/24 History metoprolol succinate 100 mg 100 mg PO DAILY bp 06/01/13 01/09/24 History tablet,extended release 24 hr metformin 500 mg tablet,extended 500 mg PO DAILY DIABETES 04/25/20 03/05/23 History release 24 hr rosuvastatin 5 mg tablet 5 mg PO DAILY CHOLESTEROL 12/16/21 03/04/23 History amlodipine 10 mg tablet 10 mg PO DAILY BP 01/07/23 01/09/24 History hydralazine 25 mg tablet 25 mg PO TID 30 days #90 tabs 03/23/23 Unknown Rx abiraterone 500 mg tablet 1,000 mg PO DAILY 12/30/23 Unknown History lidocaine-prilocaine 2.5 %-2.5 % 1 applic topical ONCE PRN port 01/09/24 Unknown Rx topical cream access 30 days #30 grams omeprazole 20 mg capsule,delayed 20 mg PO DAILY #30 caps 01/09/24 Unknown Rx release potassium chloride 20 mEq 40 meq (2 x 20 mEq) PO DAILY 30 03/08/24 Unknown Rx tablet,extended release(part/cryst) days #60 tabs prednisone 5 mg tablet 5 mg PO BID #60 tabs 03/14/24 Unknown Rx loperamide 2 mg capsule (Imodium 2 mg PO Q6H PRN loose stool 03/22/24 Unknown History A-D) ondansetron HCl 8 mg tablet 8 mg PO Q8H #30 tabs 03/28/24 Unknown Rx prochlorperazine maleate 10 mg 10 mg PO Q6H PRN nausea and 03/28/24 Unknown Rx tablet (Compazine) vomiting #30 tabs Allergy/AdvReac Type Severity Reaction Status Date / Time hydromorphone (From Dilaudid) AdvReac Other Verified 04/02/24 15:48 meperidine (From Demerol) AdvReac Nausea/Vom/ Verified 04/02/24 15:48 Diarrhea Family History Father Myocardial infarction Surgical History Hx of colectomy History of total left knee replacement S/P total knee arthroplasty Hx of cystoscopy Hx of left knee surgery Hx of cystoscopy Hx of cystoscopy Hx of cystoscopy (~05/28/20) Hx of cystoscopy (~01/23/20) Hx of dilation of urethra Hx of cystoscopy Hx of cystoscopy Hx of cystoscopy History of removal of Port-a-Cath Hx of colonoscopy Hx of cataract surgery History of back surgery History of cholecystectomy History of appendectomy Social History household members: spouse Smoking Status: Never smoker alcohol intake: never substance use type: does not use ROS Constitutional Constitutional: Reports anorexia, fatigue, malaise and weakness; Denies change in weight, chills, fever(s), night sweats or other Eyes Eyes: Denies blurry vision, change in eye color, change in vision, discharge from eye(s), double vision, erythema, eye pain, loss of vision or other ENT HEENT: Denies abnormal hearing, dysphagia, ear pain, epistaxis, headache(s), hearing loss, nasal congestion, nasal discharge, post nasal drip, sinus pressure, sore throat or other Cardiovascular Cardiovascular: Denies chest pain, claudication, dyspnea on exertion, edema, lightheadedness, orthopnea, palpitations, paroxysmal nocturnal dyspnea, rapid heart rate, syncope or other Respiratory/Chest Respiratory/Chest: Reports cough; Denies dyspnea, excessive phlegm production, hemoptysis, productive cough, shortness of breath at rest, shortness of breath with exertion, wheezing or other Gastrointestinal Gastrointestinal: Reports constipation, diarrhea and nausea; Denies abdominal pain, coffee ground emesis, dyspepsia, hematemesis, hematochezia, loose stools, melena, vomiting or other Genitourinary Genitourinary: Reports other Details: chronic lyman-Urine looks cloudy ; Denies burning urination, difficulty urinating, dysuria, hematuria, nocturia, urinary frequency, urinary hesitancy, urinary incontinence or urinary urgency Musculoskeletal Musculoskeletal: Denies arthralgias, back pain, joint pain, joint stiffness, joint swelling, myalgias, neck pain or other Neurologic Neurologic: Denies abnormal gait, abnormal speech, confusion, disequilibrium, dizziness, focal weakness, headache(s), numbness, paresthesias, seizure-like activity, seizures, syncope, tingling, tremor(s) or other Psychiatric Psychiatric: Denies anxiety, depression, homicidal ideation, suicidal ideation or other Endocrine Endocrinology: Denies change in body appearance, cold intolerance, excessive sweating, heat intolerance, polydipsia, polyuria or other Hematologic/Lymphatic Hematologic/Lymphatic: Denies anemia, easy bleeding, easy bruising, lymphadenopathy or other Allergic/Immunologic Allergic/Immunologic: Denies rhinitis, hives, eczemia, asthma or other Vital Signs Vital Signs Vital Signs: 04/02/24 10:20 04/02/24 11:44 04/02/24 12:05 Temperature 98.0 F 97.9 F 97.6 F L Temperature Source Axillary Oral Oral Pulse Rate 104 H 97 92 Respiratory Rate 16 23 H 16 Blood Pressure 118/60 125/62 H 122/62 H Blood Pressure Mean 79 83 82 Pulse Ox 98 96 97 Oxygen Delivery Method Room Air Room Air 04/02/24 13:00 04/02/24 14:00 04/02/24 14:12 Temperature 97.9 F 98 F 98 F Temperature Source Oral Oral Pulse Rate 93 93 93 Respiratory Rate 17 16 16 Blood Pressure 137/66 H 144/61 H 144/61 H Blood Pressure Mean 89 88 88 Pulse Ox 96 96 96 Oxygen Delivery Method Room Air Room Air Weight Weight: 73.7 kg Body Mass Index (BMI) 23.3 Physical Exam Const alert, oriented x3, no apparent distress and average body habitus; Negative for healthy appearing or well nourished Constitutional Narrative: Ill-appearing, older, white male, lying in bed, does not appear toxic however, looks somewhat malnourished General Appearance: cooperative Orientation / Consciousness: Negative for confused HEENT normocephalic and head/scalp atraumatic; Negative for hearing grossly normal bilaterally or moist oral mucous membranes HEENT Narrative: Bilateral temporal wasting, mild hearing loss, mucous membranes are dry, Mallampati 2, no thrush, dentition is fair for age Eyes PERRL, EOMs intact bilaterally and conjunctivae normal Eyes Narrative: No scleral icterus Neck no lymphadenopathy and supple Neck Narrative: Trachea midline, no thyroid enlargement Resp no retractions, no use of accessory muscles and clear to auscultation bilaterally Resp Narrative: Tachypneic but no signs of respiratory distress on room air Auscultation: Negative for rales, rhonchi or wheezes Cardio regular rate, regular rhythm, S1 normal heart sound, S2 normal heart sound, no murmurs, no rub, no gallops and no clicks GI normal to inspection, nondistended, normoactive bowel sounds, soft to palpation and non-tender GI Narrative: Ostomy left lower quadrant with palpable hard stool noted coming out of his ostomy Extremity no clubbing, cyanosis or edema Extremity Narrative: Decreased lean muscle mass, pedal pulses are 2+ bilaterally Skin no wounds, No skin turgor normal, no jaundice, no petechiae and no mottling Skin Narrative: Mediport accessed left upper chest-clean and dry with no signs of infection, appears mildly dehydrated with slightly abnormal skin turgor Neuro oriented x3, moves all extremities and no focal motor deficits Speech: speech normal Psych affect normal Psych Narrative: Very pleasant, eye contact is good, patient interacts appropriately Results Lab / Micro Data 04/02/24 10:40 04/02/24 10:40 Labs: Laboratory Results - last 24 hr 04/02/24 10:40: WBC 10.9, RBC 3.94 L, Hgb 11.3 L, Hct 34.8 L, MCV 88.3, MCH 28.7, MCHC 32.5, RDW Std Deviation 57.4 H, RDW Coeff of Edmar 18.3 H, Plt Count 210, MPV 9.9, Immature Gran % (Auto) 0.600, Neut % (Auto) 83.2 H, Lymph % (Auto) 4.2 L, Ransom % (Auto) 11.8 H, Eos % (Auto) 0.0, Baso % (Auto) 0.2, Absolute Neuts (auto) 9.1 H, Absolute Lymphs (auto) 0.46 L, Nucleated RBC % 0, Sodium 140, Potassium 3.3 L, Chloride 114 H, Carbon Dioxide 16.0 L, Anion Gap 10, BUN 41 H, Creatinine 1.64 H, Estim Creat Clear Calc 36.48, Est GFR (MDRD) Af Amer 52 L, Est GFR (MDRD) Non-Af 43 L, BUN/Creatinine Ratio 25.0 H, Glucose 145 H, Lactic Acid 1.3, Calcium 7.9 L, Total Bilirubin 0.80, AST 16, ALT 20, Alkaline Phosphatase 66, Total Protein 4.4 L, Albumin 1.8 L, Globulin 2.6, Albumin/Globulin Ratio 0.7 L 04/02/24 12:31: Urine Color Carol, Urine Clarity Cloudy, Urine pH 8.0, Ur Specific Marrero 1.010, Urine Protein 500 H, Urine Glucose (UA) Normal, Urine Ketones 5 H, Urine Occult Blood 150 H, Urine Nitrite Negative, Urine Bilirubin Negative, Urine Urobilinogen Normal, Ur Leukocyte Esterase 500 H, Urine RBC 5-10 SEEN, Urine WBC 25-50 SEEN, Ur Squamous Epith Cells 0 SEEN, Amorphous Sediment 3+ PHOS, Urine Bacteria 3+, Urine Mucus 0 SEEN ABG Data ABG results: ABG 04/02/24 14:47 Specimen Type ART Sample Site R Brach pH 7.45 Bicarbonate Actual 15.7 L Total CO2 16 Base Excess -8 L O2 Saturation 98 ABG pCO2 22.8 L ABG pO2 101 H O2 Delivery Device Room Air Vent Mode Not entered Imaging Radiology Impression Chest X-Ray 04/02/24 10:50 IMPRESSION: No acute abnormality is seen. Electronically Signed: Matthew Umana MD at 11:06 EST , Abdomen/Pelvis CT 04/02/24 13:49 IMPRESSION: Bilateral hydronephrosis and hydroureter down to the level of the bladder with bilateral double-J stent catheters. Bladder wall thickening. Lyman catheter is seen within the urinary bladder. Stable presacral soft tissue density. Findings in keeping with hepatic metastasis. Electronically Signed: Matthew Umana MD at 14:46 EST , Assessment & Plan Assessment/Plan (1) Acute on chronic kidney failure: (2) Chemotherapy induced diarrhea: (3) Complicated urinary tract infection: (4) Generalized weakness: (5) Respiratory alkalosis: (6) Metabolic acidosis: (7) Hypokalemia: (8) Hyperchloremia: PLAN: Plan Complicated urinary tract infection -Patient with history of obstruction and chronic Lyman/bilateral J stents/catheters -Change Lyman -Urine culture pending -Will transition from ceftriaxone to Zosyn for broader coverage to ensure Pseudomonas with history of immunocompromise state -Imaging showed hydroureter and hydronephrosis -Consult urology--> Case discussed with Dr. Navarro -Plan for OR probably tomorrow with stent exchange -Will need to monitor closely after stent exchange for signs of sepsis -N.p.o. after midnight Respiratory alkalosis/metabolic acidosis--> multifactorial(elevated chloride/mild starvation ketosis/MEAGAN/diarrhea) -ABG shows primary alkalosis with a pH of 7.45/pCO2 22.8/pO2 101--> estimated bicarb on gases 15.7 -Will utilize LR for now at 75 cc/h and repeat BMP every 4 hours x 3 -If next BMP does not show improvement in his acidosis we will transition to bicarb drip as his respiratory alkalosis appears to be a compensation for his acidosis predominantly with overcompensation noted -Respiratory rate at the time my evaluation was 30 MEAGAN on CKD stage IIIa -Baseline serum creatinine appears to be between 1.2 and 1.3 -1.64 at the time of admission and has slowly been trending up -IV fluids with LR at 75 cc/h -Exchange Lyman -Urology consultation for J stent/catheter exchange -Repeat BMP in a.m. Chemo induced diarrhea -Patient has been holding Xtandi for the last several days so his diarrhea has resolved -Hold home loperamide since he is not taking the medication however he reports it has been resistant to every measure given to him by oncology -Patient reports stool is slowly getting hard -MiraLAX x 1 dose today and monitor closely for constipation Hypokalemia -Potassium replacement -Recheck in a.m. Generalized weakness/debility due to acute illness -PT/OT consultation Poor p.o. intake -Suspect malnutrition -Dietitian is consulted -Patient reports he has had poor p.o. intake for several days -Ensure added Metastatic prostate cancer -Follows with Dr. Gonzales -hold Xtandi due to diarrhea and encouraged patient to have further discussion with Dr. Gonzales at next visit as patient states it has been refractory to everything they have given him to decrease his diarrhea -last chemotherapy with docetaxel on 03/28 Essential hypertension/hyperlipidemia -Hold him on amlodipine and losartan for now as I am concerned after stent exchange she could get hypotensive and he is on a lot of antihypertensives -Continue home hydralazine 25mg 3 times daily -Continue home metoprolol -Restart medications as blood pressure allows -Continue home rosuvastatin Chemo induced nausea -Continue home as needed medications History of gout -No current issues and patient does not take any medication on a regular basis DM-2 -Hold home metformin -A1c in June 2023 was 6.2 -Monitor blood sugars -Will hold off on SSI and scheduled Accu-Cheks for now but if blood sugars rise dramatically will need to reassess Chronic anemia -Mild -Monitor History of anal cancer -Remission DVT prophylaxis -High risk with history of cancer -Enoxaparin 40 mg daily and encourage mobility CODE STATUS -DNR CCA okay for short-term intubation per discussion with patient at the time of admission Charges/Coding Visit Charges Inpatient E&M: 07726 Init Hosp L3
[2024-04-02] MEDS: Lactated Ringers 1,000 ML 75 ML IV (16:07)
[2024-04-02 16:58] LABS: Anion Gap 10 (5-15); BUN 42 mg/dL (7-18); BUN/Creat Ratio 26.6 RATIO (10-20); Calcium,Total 8.1 mg/dL (8.5-10.1); Chloride 114 mmol/L (98-107); Creatinine, Serum 1.58 mg/dL (0.70-1.30); EST Glomerular Filtration Rate 45 mL/min (>60); Est Glom Filt Rate - Afr Amer 54 mL/min (>60); Estimated Creatinine Clearance 37.86 ml/min; Glucose 126 mg/dL (74-106); Potassium 3.3 mmol/L (3.5-5.1); Sodium Level 142 mmol/L (136-145)
[2024-04-02] MEDS: Polyethylene Glycol 3350 17 GM PACKET PO (17:26)
[2024-04-02] MEDS: Potassium Chloride Oral Tablet 20 MEQ 40 MEQ PO (17:26)
[2024-04-02] MEDS: predniSONE 5 MG Tablet PO (17:26)
--- NOTE | 2024-04-02 18:09 | PCM.HOSP.N ---
Hospitalist Note Serum bicarb is trending up with utilization of lactated Ringer's. Will continue for 2 L and then reevaluate in the morning.
[2024-04-02] MEDS: Ondansetron 4 MG/2 ML Vial IV (20:07)
--- OUTSIDE RECORDS SUMMARY | 2024-04-02 20:12 | XMS RPT_ITS | CCD ---
Author Organization [facility] Care Team Providers Care Air Intelligence Specialist Name Role Phone Rigo Manrique MD Primary [...] Melatonin; Translations: [MELATONIN] Drug Allergy 08-08-2013 Rash [facility] (2 sources) Meperidine; Translations: [MEPERIDINE (PF)] Drug Allergy 07-17-2013 Vomiting [facility] Medications Completed/Discontinued Medications Medication Drug Class(es) Dates Sig (Normalized) Sig (Original) amLODIPine 5 mg oral tablet (1 source) Dihydropyridine Calcium Channel Sophia Start: 05-24-2013 take 2 tablets by mouth once daily amLODIPine (NORVASC) 5 mg tablet Take 10 mg by mouth once daily. 0 05/24/2013 Active Comment on above: Take 10 mg by mouth once daily. benazepril hydrochloride 20 mg oral tablet (1 source) Angiotensin Converting Enzyme Inhibitor Start: 07-11-2013 take 1 tablet by mouth once daily BENAZEPRIL 20 mg tablet Take 20 mg by mouth once daily. 0 07/11/2013 Active Comment on above: Take 20 mg by mouth once daily. 0.375 ml leuprolide acetate 60 mg/ml prefilled syringe (1 source) Gonadotropin Releasing Hormone Receptor Agonist Leuprolide Acetate (ELIVIKYD, 3 MONTH,) 22.5 mg syrg Inject 22.5 mg subcutaneously every 3 months. 0 Active Comment on above: Inject 22.5 mg subcu taneously every 3 months. losartan potassium 100 mg oral tablet (1 source) Angiotensin 2 Receptor Sophia take 1 tablet by mouth once daily losartan 100 mg tablet Take 100 mg by mouth once daily. 0 Active Comment on above: Take 100 mg by mouth once daily. metFORMIN hydrochloride 500 mg oral tablet (1 source) Biguanide take 1 tablet by mouth once daily at breakfast metFORMIN (GLUCOPHAGE) 500 mg tablet Take 500 mg by mouth daily with breakfast. 0 Active Comment on above: Take 500 mg by mouth daily with breakfast. 24 hr metoprolol succinate 100 mg extended release oral tablet (1 source) beta-Adrenergic Sophia take 100 mg by mouth once daily metoprolol succinate XL, long acting, 100 mg Tb24 Take 100 mg by mouth once daily. 0 Active Comment on above: Take 100 mg by mouth once daily. simvastatin 20 mg oral tablet (1 source) HMG-CoA Reductase Inhibitor take 2 tablets by mouth once daily at bedtime simvastatin 20 mg tablet Take 40 mg by mouth daily at bedtime. 0 Active Comment on above: Take 40 mg by mouth daily at bedtime. Problems Active Problems Problem Classification Problem Date [...] Results Test Name Value Interpretation Reference Range Facility CBC W Auto Differential pane l (Bld)on 05-26-2022 Basophils (Bld) [#/Vol] 0.07 10*3/uL Normal <0.11 [facility] Comment on above: Order Comment: Speci men Type: BLOOD SPECIMEN Ordering Facility: [facility] Address: [address] [place] [phone] Performed By: #### 5 7021-8 #### [facility] CLIA [id number] [address] [place] [address] [place] Basophils/100 WBC (Bld) 1.1 % Normal [facility] Comment on above: Order Comment: Speci men Type: BLOOD SPECIMEN Ordering Facility: [facility] Address: [address] [address] Performed By: #### 5 7021-8 #### [facility] CLIA [id number] [address] [place] [address] [place] Differential cell count method Nom (Bld) Auto Normal [facility] Comment on above: Order Comment: Speci men Type: BLOOD SPECIMEN Ordering Facility: [facility] Address: [address] [address] Performed By: #### 5 7021-8 #### [facility] CLIA [id number] [address] [place] [address] [place] Eosinophils (Bld) [#/Vol] 0.35 10*3/uL Normal <0.46 [facility] Comment on above: Order Comment: Speci men Type: BLOOD SPECIMEN Ordering Facility: [facility] Address: [address] [address] Performed By: #### 5 7021-8 #### [facility] CLIA [id number] [address] [place] [address] [place] Eosinophils/100 WBC (Bld) 5.6 % Normal [facility] Comment on above: Order Comment: Speci men Type: BLOOD SPECIMEN Ordering Facility: [facility] Address: [address] Performed By: #### 5 7021-8 #### [facility] CLIA [id number] [address] [place] [address] [place] Erythrocyte distribution width (RBC) [Ratio] 15.3 % High 11.5-15.0 [facility] Comment on above: Order Comment: Speci men Type: BLOOD SPECIMEN Ordering Facility: [facility] Address: [address] [address] Performed By: #### 5 7021-8 #### [facility] CLIA [id number] [address] [place] [address] [place] Hematocrit (Bld) [Volume fraction] 36.2 % Low 39.0-51.0 [facility] Comment on above: Order Comment: Speci men Type: BLOOD SPECIMEN Ordering Facility: [facility] Address: [address] [place] [address] Performed By: #### 5 7021-8 #### [facility] [id number] [address] [place] [address] [place] Hemoglobin (Bld) [Mass/Vol] 11.8 g/dL Low 13.0-17.0 [facility] Comment on above: Order Comment: Speci men Type: BLOOD SPECIMEN Ordering Facility: [facility] Address: [address] [place] [address] Performed By: #### 5 7021-8 #### [facility] [id number] [address] [place] [address] [place] Immature granulocytes (Bld) [#/Vol] 0.03 10*3/uL Normal <0.10 [facility] Comment on above: Order Comment: Speci men Type: BLOOD SPECIMEN Ordering Facility: [facility] Address: [address] [place] [address] Performed By: #### 5 7021-8 #### [facility] [id number] [address] [place] [address] [place] Immature granulocytes/100 WBC (Bld) 0.5 % Normal [facility] Comment on above: Order Comment: Speci men Type: BLOOD SPECIMEN Ordering Facility: [facility] Address: [address] [place] [address] Performed By: #### 5 7021-8 #### [facility] [id number] [address] [place] [address] [place] Lymphocytes (Bld) [#/Vol] 1.25 10*3/uL Normal 1.00-4.00 [facility] Comment on above: Order Comment: Speci men Type: BLOOD SPECIMEN Ordering Facility: [facility] Address: [address] [place] [address] Performed By: #### 5 7021-8 #### [facility] CLIA [id number] [address] [place] [address] [facility] Lymphocytes/100 WBC (Bld) 20.0 % Normal [facility] Comment on above: Order Comment: Speci men Type: BLOOD SPECIMEN Ordering Facility: [facility] Address: [address] [place] [address] Performed By: #### 5 7021-8 #### [facility] [id number] [address] [place] [address] [place] MCH (RBC) [Entitic mass] 26.6 pg Normal 26.0-34.0 [facility] Comment on above: Order Comment: Speci men Type: BLOOD SPECIMEN Ordering Facility: [facility] Address: [address] [place] [address] Performed By: #### 5 7021-8 #### [facility] [id number] [address] [place] [address] [place] MCHC (RBC) [Mass/Vol] 32.6 g/dL Normal 30.5-36.0 [facility] Comment on above: Order Comment: Speci men Type: BLOOD SPECIMEN Ordering Facility: [facility] Address: [address] [place], [place] [id number] Performed By: #### 5 7021-8 #### [facility] [id number] [address] [place] [address] [place] MCV (RBC) [Entitic vol] 81.5 fL Normal 80.0-100.0 [facility] Comment on above: Order Comment: Speci men Type: BLOOD SPECIMEN Ordering Facility: [facility] Address: [address] Performed By: #### 5 7021-8 #### [facility] CLIA [id number] [address] [place] [address] [place] Monocytes (Bld) [#/Vol] 0.54 10*3/uL Normal <0.87 [facility] Comment on above: Order Comment: Speci men Type: BLOOD SPECIMEN Ordering Facility: [facility] Address: [address] [address] Performed By: #### 5 7021-8 #### [facility] CLIA [id number] [address] [place] [address] [place] Monocytes/100 WBC (Bld) 8.7 % Normal [facility] Comment on above: Order Comment: Speci men Type: BLOOD SPECIMEN Ordering Facility: [facility] Address: [address] [address] Performed By: #### 5 7021-8 #### [facility] CLIA [id number] [address] [place] [address] [place] Neutrophils (Bld) [#/Vol] 4.00 10*3/uL Normal 1.45-7.50 [facility] Comment on above: Order Comment: Speci men Type: BLOOD SPECIMEN Ordering Facility: [facility] Address: [address] Performed By: #### 5 7021-8 #### [facility] CLIA [id number] [address] [place] [address] [place] Neutrophils/100 WBC (Bld) 64.1 % Normal [facility] Comment on above: Order Comment: Speci men Type: BLOOD SPECIMEN Ordering Facility: [facility] Address: [address] Performed By: #### 5 7021-8 #### [facility] CLIA [id number] [address] [place] [address] [place] Nucleated RBC (Bld) [#/Vol] 10*3/uL Normal <0.01 [facility] Comment on above: Order Comment: Speci men Type: BLOOD SPECIMEN Ordering Facility: [facility] Address: [address] [place] [address] Performed By: #### 5 7021-8 #### [facility] CLIA [id number] [address] [place] [address] [place] Nucleated RBC/100 WBC (Bld) [Ratio] 0.0 /100 WBC Normal [facility] Comment on above: Order Comment: Speci men Type: BLOOD SPECIMEN Ordering Facility: [facility] Address: [address] [place] [address] Performed By: #### 5 7021-8 #### [facility] CLIA [id number] [address] [place] [address] [place] Platelet mean volume (Bld) [Entitic vol] 9.7 fL Normal 9.0-12.7 [facility] Comment on above: Order Comment: Speci men Type: BLOOD SPECIMEN Ordering Facility: [facility] Address: [address] [place] [address] Performed By: #### 5 7021-8 #### [facility] CLIA [id number] [address] [place] [address] [place] Platelets (Bld) [#/Vol] 234 10*3/uL Normal 150-400 [facility] Comment on above: Order Comment: Speci men Type: BLOOD SPECIMEN Ordering Facility: [facility] Address: [address] [place] [address] Performed By: #### 5 7021-8 #### [facility] CLIA [id number] [address] [place] [address] [place] RBC (Bld) [#/Vol] 4.44 10*6/uL Normal 4.20-6.00 [facility] Comment on above: Order Comment: Speci men Type: BLOOD SPECIMEN Ordering Facility: [facility] Address: [address] Performed By: #### 5 7021-8 #### [facility] CLIA [id number] [address] [place] [address] [place] WBC (Bld) [#/Vol] 6.24 10*3/uL Normal 3.70-11.00 [facility] Comment on above: Order Comment: Speci men Type: BLOOD SPECIMEN Ordering Facility: [facility] Address: [address] Performed By: #### 5 7021-8 #### [facility] CLIA [id number] [address] [place] [address] [place] CNOVSPon 05-26-2022 CNOVSP Visit (SP) Office (H EMAWS) VILMA SMITH ([id number]) 1945 M Date Time Provider Department 05/26/22 3:00 PM PACO EDMONDS During your visit today, we recorded the following information about you: Temperature Pulse Blood pressure Weight 97.1 degrees 68/minute 133/70 90.7 kg Paco Edmonds MD 05/27/2022 10:53 AM Signed Hematology and Medical Oncology PATIENT NAME: Vilma Smith. CLINIC NO: [id number]. ATTENDING PHYSICIAN: Paco Edmonds MD. DATE OF [...] Abs Lymph 1.00 - 4.00 k/uL 1.25 Isabela% % 8.7 Abs Isabela <0.87 k/uL 0.54 Eosin% % 5.6 Abs [...] Bilirubin, Total 0.2 - 1.3 mg/dL 0.3 Alkali (more content not included)... Normal [facility] metabolic 2000 panelon 05-26-2022 Albumin [Mass/Vol] 4.4 g/dL Normal 3.9-4.9 [facility] Comment on above: Order Comment: Speci men Type: BLOOD SPECIMEN Ordering Facility: [facility] Address: [address] [place] [address] Performed By: #### 2 4323-8 #### [facility] [id number] [address] [place] [address] [place] ALP [Catalytic activity/Vol] 93 U/L Normal 38-113 [facility] Comment on above: Order Comment: Speci men Type: BLOOD SPECIMEN Ordering Facility: [facility] Address: [address] [address] Performed By: #### 2 4323-8 #### [facility] [id number] [address] [place] [address] [place] ALT [Catalytic activity/Vol] 21 U/L Normal 10-54 [facility] Comment on above: Order Comment: Speci men Type: BLOOD SPECIMEN Ordering Facility: [facility] Address: [address] [address] Performed By: #### 2 4323-8 #### [facility] [id number] [address] [place] [address] [place] Anion gap [Moles/Vol] 10 mmol/L Normal 9-18 [facility] Comment on above: Order Comment: Speci men Type: BLOOD SPECIMEN Ordering Facility: [facility] Address: [address] [address] Performed By: #### 2 4323-8 #### [facility] CLIA [id number] [address] [place] [address] [place] AST [Catalytic activity/Vol] 18 U/L Normal 14-40 [facility] Comment on above: Order Comment: Speci men Type: BLOOD SPECIMEN Ordering Facility: [facility] Address: [address] [place] [address] Performed By: #### 2 4323-8 #### [facility] CLIA [id number] [address] [place] [address] [place] Bilirubin [Mass/Vol] 0.3 mg/dL Normal 0.2-1.3 [facility] Comment on above: Order Comment: Speci men Type: BLOOD SPECIMEN Ordering Facility: [facility] Address: [address] [place] [address] Performed By: #### 2 4323-8 #### [facility] CLIA [id number] [address] [place] [address] [place] Calcium [Mass/Vol] 10.0 mg/dL Normal 8.5-10.2 [facility] Comment on above: Order Comment: Speci men Type: BLOOD SPECIMEN Ordering Facility: [facility] Address: [address] [place] [address] Performed By: #### 2 4323-8 #### [facility] CLIA [id number] [address] [place] [address] [place] Chloride [Moles/Vol] 105 mmol/L Normal 97-105 [facility] Comment on above: Order Comment: Speci men Type: BLOOD SPECIMEN Ordering Facility: [facility] Address: [address] [place] [address] Performed By: #### 2 4323-8 #### [facility] CLIA [id number] [address] [place] [address] [place] CO2 [Moles/Vol] 25 mmol/L Normal 22-30 [facility] Comment on above: Order Comment: Speci men Type: BLOOD SPECIMEN Ordering Facility: [facility] Address: [address] [address] Performed By: #### 2 4323-8 #### [facility] [id number] [address] [place] [address] [place] Creatinine [Mass/Vol] 1.52 mg/dL High 0.73-1.22 [facility] Comment on above: Order Comment: Speci men Type: BLOOD SPECIMEN Ordering Facility: [facility] Address: [address] [address] Performed By: #### 2 4323-8 #### [facility] [id number] [address] [place] [address] [place] ESTIMATED GLOMERULAR FILTRATION RATE 46 mL/min/1.73m??? Low >=60 [facility] Comment on above: Order Comment: Mathewi men Type: BLOOD SPECIMEN Ordering Facility: [facility] Address: [address] [place] [address] Result Comment: Veronica mated Glomerular Filtration Rate (eGFR) is calculated using the 2020 CKD-EPI creatinine equation. This equation utilizes serum creatinine, sex, and age as parameters. The creatinine assay has traceable calibration to isotope dilution-mass spectrometry. Refer to KDIGO guidelines for clinical interpretation. In patients with unstable renal function, e.g. those with acute kidney injury, the eGFR may not accurately reflect actual GFR. Performed By: #### 2 4323-8 #### [facility] [id number] [address] [place] [address] [place] Glucose [Mass/Vol] 158 mg/dL High 74-99 [facility] Comment on above: Order Comment: Mathewi men Type: BLOOD SPECIMEN Ordering Facility: [facility] Address: [address] [place] [address] Result Comment: The [place] [employer] (ADA) provides guidance for cutoff values for fasting glucose and random glucose. The ADA defines fasting as no caloric intake for at least 8 hours. Fasting plasma glucose results between 100 to 125 mg/dL indicate increased risk for diabetes (prediabetes). Fasting plasma glucose results greater than or equal to 126 mg/dL meet the criteria for diagnosis of diabetes. In the absence of unequivocal hyperglycemia, results should be confirmed by repeat testing. In a patient with classic symptoms of hyperglycemia or hyperglycemic crisis, random plasma glucose results greater than or equal to 200 mg/dL meet the criteria for diagnosis of diabetes. Reference: Standards of Medical Care in Diabetes 2016, [place] [employer]. Diabetes Care. 2016.39(Suppl 1). Performed By: #### 2 4323-8 #### [facility] CLIA [id number] [address] [place] [address] [place] Potassium [Moles/Vol] 4.5 mmol/L Normal 3.7-5.1 [facility] Comment on above: Order Comment: Chyna peterson Type: BLOOD SPECIMEN Ordering Facility: [facility] Address: [address] [place] [address] Performed By: #### 2 4323-8 #### [facility] [id number] [address] [place] [address] [place] Protein [Mass/Vol] 7.0 g/dL Normal 6.3-8.0 [facility] Comment on above: Order Comment: Chyna peterson Type: BLOOD SPECIMEN Ordering Facility: [facility] Address: [address] [place] [address] Performed By: #### 2 4323-8 #### [facility] [id number] [address] [place] [address] [place] Sodium [Moles/Vol] 140 mmol/L Normal 136-144 [facility] Comment on above: Order Comment: Chyna peterson Type: BLOOD SPECIMEN Ordering Facility: [facility] Address: [address] [place] [address] Performed By: #### 2 4323-8 #### [facility] [id number] [address] [place] [address] [place] Urea nitrogen [Mass/Vol] 32 mg/dL High 9-24 [facility] Comment on above: Order Comment: Speci men Type: BLOOD SPECIMEN Ordering Facility: [facility] Address: [address] [place] [address] Performed By: #### 2 4323-8 #### [facility] CLIA [id number] [address] [place] [address] [place] Ferritin SerPl-mCncon 2022 Ferritin [Mass/Vol] 51.0 ng/mL Normal 30.3-565.7 [facility] Comment on above: Order Comment: Speci men Type: BLOOD SPECIMEN Ordering Facility: [facility] Address: [place] [address] Performed By: #### 2 276-4, 02055-9 #### [facility] CLIA [id number] [address] [place] [address] [place] Iron and Iron binding capaci ty panelon 05-26-2022 Iron [Mass/Vol] 42 ug/dL Normal 41-186 [facility] Comment on above: Order Comment: Speci men Type: BLOOD SPECIMEN Ordering Facility: [facility] Address: [address] [place] [address] Performed By: #### 2 276-4, 43668-8 #### [facility] CLIA [id number] [address] [place] [address] [place] Iron binding capacity [Mass/Vol] 355 ug/dL Normal 232-386 [facility] Comment on above: Order Comment: Speci men Type: BLOOD SPECIMEN Ordering Facility: [facility] Address: [address] [place] [address] Performed By: #### 2 276-4, 13156-6 #### [facility] CLIA [id number] [address] [id number] [place] Iron/TIBC [Molar ratio] 11.8 % Low 15.0-57.0 [facility] Comment on above: Order Comment: Speci men Type: BLOOD SPECIMEN Ordering Facility: [facility] Address: [address] [place], [place] [id number] Performed By: #### 2 276-4, 24332-8 #### [facility] CLIA [id number] [address] [facility] [place] [facility] [address] [facility] CNOVSPon 11-19-2021 CNOVSP Visit (SP) Office (H EMAWS) VILMA SMITH ([id number]) 1945 M Date Time Provider Department 11/19/21 11:10 AM PACO EDMONDS During your visit today, we recorded the following information about you: Temperature Pulse Blood pressure Weight 97 degrees 80/minute 155/76 89.8 kg Height 1.71 m Paco Edmonds MD 11/20/2021 9:00 AM Signed Hematology and Medical Oncology PATIENT NAME: Vilma Smith. CLINIC NO: [id number]. ATTENDING PHYSICIAN: Paco Edmonds MD. DATE OF [...] soft, non-tender, non-distended, without organomegaly or palpable masses.?Colostomy?normal?fun ctioning. EXTREMITIES No edema NEURO Awake, alert and [...] Abs Lymph 1.00 - 4.00 k/uL 1.17 Isabela% % 9.0 Abs Isabela <0.87 k/uL 0.57 Eosin% % 8.4 Abs Eosin <0.46 k/uL 0. (more content not included)... Normal [facility] CBC W Auto Differential pane l (Bld)on 11-17-2021 Basophils (Bld) [#/Vol] 0.04 10*3/uL Normal <0.11 [facility] Comment on above: Order Comment: Speci men Type: BLOOD SPECIMEN Ordering Facility: [facility] Address: [address] [place] [address] Performed By: #### 5 7021-8 #### [facility] CLIA [id number] [address] [place] [address] [place] Basophils/100 WBC (Bld) 0.6 % Normal [facility] Comment on above: Order Comment: Speci men Type: BLOOD SPECIMEN Ordering Facility: [facility] Address: [address] [place] [address] Performed By: #### 5 7021-8 #### [facility] CLIA [id number] [address] [place] [address] [place] Differential cell count method Nom (Bld) Auto Normal [facility] Comment on above: Order Comment: Speci men Type: BLOOD SPECIMEN Ordering Facility: [facility] Address: [address] [place] [address] Performed By: #### 5 7021-8 #### [facility] CLIA [id number] [address] [place] [address] [place] Eosinophils (Bld) [#/Vol] 0.53 10*3/uL High <0.46 [facility] [facility] Comment on above: Order Comment: Speci men Type: BLOOD SPECIMEN Ordering Facility: [facility] Address: [address] [place], [place] [address] Performed By: #### 5 7021-8 #### [facility] CLIA [id number] [address] [place] [address] [place] Eosinophils/100 WBC (Bld) 8.4 % Normal [facility] Comment on above: Order Comment: Speci men Type: BLOOD SPECIMEN Ordering Facility: [facility] Address: [address] [place], [place] [phone] Performed By: #### 5 7021-8 #### [facility] CLIA [id number] [address] [place] [address] [place] Erythrocyte distribution width (RBC) [Ratio] 15.6 % High 11.5-15.0 [facility] Comment on above: Order Comment: Speci men Type: BLOOD SPECIMEN Ordering Facility: [facility] Address: [address] [place] [address] Performed By: #### 5 7021-8 #### [facility] CLIA [id number] [address] [place] [address] [place] Hematocrit (Bld) [Volume fraction] 38.4 % Low 39.0-51.0 [facility] Comment on above: Order Comment: Speci men Type: BLOOD SPECIMEN Ordering Facility: [facility] Address: [address] [place] [address] Performed By: #### 5 7021-8 #### [facility] [id number] [address] [place] [address] [place] Hemoglobin (Bld) [Mass/Vol] 12.4 g/dL Low 13.0-17.0 [facility] Comment on above: Order Comment: Speci men Type: BLOOD SPECIMEN Ordering Facility: [facility] Address: [address] [place] [address] Performed By: #### 5 7021-8 #### [facility] [id number] [address] [place] [address] [place] IMMATURE GRAN % 0.6 % Normal [facility] Comment on above: Order Comment: Speci men Type: BLOOD SPECIMEN Ordering Facility: [facility] Address: [address] [place] [address] Performed By: #### 5 7021-8 #### [facility] [id number] [address] [place] [address] [place] IMMATURE GRAN ABS 0.04 k/uL Normal <0.10 [facility] Comment on above: Order Comment: Speci men Type: BLOOD SPECIMEN Ordering Facility: [facility] Address: [address] [place] [address] Performed By: #### 5 7021-8 #### [facility] CLIA [id number] [address] [place] [address] [place] Lymphocytes (Bld) [#/Vol] 1.17 10*3/uL Normal 1.00-4.00 [facility] Comment on above: Order Comment: Speci men Type: BLOOD SPECIMEN Ordering Facility: [facility] Address: [address] [place] [address] Performed By: #### 5 7021-8 #### [facility] CLIA [id number] [address] [place] [address] [place] Lymphocytes/100 WBC (Bld) 18.5 % Normal [facility] Comment on above: Order Comment: Speci men Type: BLOOD SPECIMEN Ordering Facility: [facility] Address: [address] [place] [address] Performed By: #### 5 7021-8 #### [facility] CLIA [id number] [address] [place] [address] [place] MCH (RBC) [Entitic mass] 26.6 pg Normal 26.0-34.0 [facility] Comment on above: Order Comment: Speci men Type: BLOOD SPECIMEN Ordering Facility: [facility] Address: [address] [place], [place] [id number] Performed By: #### 5 7021-8 #### [facility] CLIA [id number] [address] [place] [address] [place] MCHC (RBC) [Mass/Vol] 32.3 g/dL Normal 30.5-36.0 [facility] Comment on above: Order Comment: Speci men Type: BLOOD SPECIMEN Ordering Facility: [facility] Address: [address] [place], [place] [phone] Performed By: #### 5 7021-8 #### [facility] CLIA [id number] [address] [place] [address] [place] MCV (RBC) [Entitic vol] 82.2 fL Normal 80.0-100.0 [facility] Comment on above: Order Comment: Speci men Type: BLOOD SPECIMEN Ordering Facility: [facility] Address: [address] [place], [place] [phone] Performed By: #### 5 7021-8 #### [facility] CLIA [id number] [address] [place] [address] [place] Monocytes (Bld) [#/Vol] 0.57 10*3/uL Normal <0.87 [facility] Comment on above: Order Comment: Speci men Type: BLOOD SPECIMEN Ordering Facility: [facility] Address: [address] [place], [place] [phone] Performed By: #### 5 7021-8 #### [facility] CLIA [id number] [address] [place] [address] [place] Monocytes/100 WBC (Bld) 9.0 % Normal [facility] Comment on above: Order Comment: Speci men Type: BLOOD SPECIMEN Ordering Facility: [facility] Address: [address] [place], [place] [phone] Performed By: #### 5 7021-8 #### [facility] CLIA [id number] [address] [place] [address] [place] Neutrophils (Bld) [#/Vol] 3.99 10*3/uL Normal 1.45-7.50 [facility] Comment on above: Order Comment: Speci men Type: BLOOD SPECIMEN Ordering Facility: [facility] Address: [address] [place], [place] [phone] Performed By: #### 5 7021-8 #### [facility] CLIA [id number] [address] [place] [address] [place] Neutrophils/100 WBC (Bld) 62.9 % Normal [facility] Comment on above: Order Comment: Speci men Type: BLOOD SPECIMEN Ordering Facility: [facility] Address: [address] [place] [address] Performed By: #### 5 7021-8 #### [facility] CLIA [id number] [address] [place] [address] [place] Nucleated RBC (Bld) [#/Vol] 10*3/uL Normal <0.01 [facility] Comment on above: Order Comment: Speci men Type: BLOOD SPECIMEN Ordering Facility: [facility] Address: [address] [place] [address] Performed By: #### 5 7021-8 #### [facility] CLIA [id number] [address] [place] [address] [place] Nucleated RBC/100 WBC (Bld) [Ratio] 0.0 /100 WBC Normal [facility] Comment on above: Order Comment: Speci men Type: BLOOD SPECIMEN Ordering Facility: [facility] Address: [address] [place] [address] Performed By: #### 5 7021-8 #### [facility] CLIA [id number] [address] [place] [address] [place] Platelet mean volume (Bld) [Entitic vol] 9.6 fL Normal 9.0-12.7 [facility] Comment on above: Order Comment: Speci men Type: BLOOD SPECIMEN Ordering Facility: [facility] Address: [address] [place] [address] Performed By: #### 5 7021-8 #### [facility] CLIA [id number] [address] [place] [address] [place] Platelets (Bld) [#/Vol] 225 10*3/uL Normal 150-400 [facility] Comment on above: Order Comment: Speci men Type: BLOOD SPECIMEN Ordering Facility: [facility] Address: [address] [place] [address] Performed By: #### 5 7021-8 #### [facility] CLIA [id number] [address] [place] [address] [place] RBC (Bld) [#/Vol] 4.67 10*6/uL Normal 4.20-6.00 [facility] Comment on above: Order Comment: Speci men Type: BLOOD SPECIMEN Ordering Facility: [facility] Address: [address] [place] [address] Performed By: #### 5 7021-8 #### [facility] CLIA [id number] [address] [place] [address] [place] WBC (Bld) [#/Vol] 6.34 10*3/uL Normal 3.70-11.00 [facility] Comment on above: Order Comment: Speci men Type: BLOOD SPECIMEN Ordering Facility: [facility] Address: [address] [place] [address] Performed By: #### 5 7021-8 #### [facility] CLIA [id number] [address] [place] [address] [place] CT CHEST WO IVCONon 11-18-19 CT CHEST WO IVCON * * *Final Report* * * DATE OF EXAM: Nov 17 2021 10:45AM [facility] 0541 - CT CHEST WO IVCON / PROCEDURE REASON: multiple diagnoses * * * * Physician Interpretation * * * * EXAMINATION: CHEST CT WITHOUT CONTRAST CLINICAL HISTORY: Lung nodules Malignant neoplasm of prostate (HCC) Technique: Spiral CT acquisition of the chest from the thoracic inlet to the upper abdomen without contrast. MQ: [id number]_6 CT Radiation dose: Integrated Dose-length product (DLP) for this visit = 235 mGy*cm CT Dose Reduction Employed: Automated exposure control(AEC) and iterative recon Comparison: CT chest on 04/30/2021. RESULT: Limitations: None. Lines, tubes, and devices: None. Lung parenchyma and airways: The central airways are patent. A cluster of solid nodules is again demonstrated in the anterior left upper lobe without interval changes, series 6 images 71-82. No new nodules identified. No masses. Lungs are clear without consolidations Pleural space: No pleural effusion. No pleural thickening. Lower neck, lymph nodes, and mediastinum: The imaged thyroid gland is normal. No lymphadenopathy in the supraclavicular, axillary, mediastinal, or hilar regions. Heart, pericardium, and thoracic vessels: The thoracic aorta and main pulmonary artery are normal in caliber. The cardiac chambers are normal in size. Punctate and linear Coronary artery atherosclerotic calcifications are noted, although the study is not optimized for coronary assessment. No pericardial effusion or thickening. Bones and soft tissues: Osteophyte formation seen in the spine. No destructive bone lesion. The chest wall soft tissue remains unremarkable. Upper abdomen: Limited study through the upper abdomen demonstrates no interval changes. Spring Tier (topogram) images: No additional findings. IMPRESSION: Stable cluster of solid nodules in the left upper lobe. No new or enlarging nodules identified. Certified Surgical Technician: ILENE Transcribe Date/Time: Nov 18 2021 4:37P Dictated by : BHASKAR SANDOVAL MD This examination was interpreted and the report reviewed and electronically signed by: BHASKAR SANDOVAL MD on Nov 18 2021 5:00PM EST [id number] Normal [facility] Comprehensive metabolic 2000 panelon 11-17-2021 Albumin [Mass/Vol] 4.3 g/dL Normal 3.9-4.9 [facility] Comment on above: Order Comment: Chyna peterson Type: BLOOD SPECIMEN Ordering Facility: [facility] Address: [address] [place] [address] Performed By: #### 2 4323-8 #### [facility] CLIA [id number] [address] [place] [address] [place] ALP [Catalytic activity/Vol] 84 U/L Normal 38-113 [facility] Comment on above: Order Comment: Chyna peterson Type: BLOOD SPECIMEN Ordering Facility: [facility] Address: [address] [id number] Performed By: #### 2 4323-8 #### [facility] CLIA [id number] [address] [place] [address] [place] ALT [Catalytic activity/Vol] 19 U/L Normal 10-54 [facility] Comment on above: Order Comment: Speci men Type: BLOOD SPECIMEN Ordering Facility: [facility] Address: [address] [place] [address] Performed By: #### 2 4323-8 #### [facility] CLIA [id number] [address] [place] [address] [place] Anion gap [Moles/Vol] 16 mmol/L Normal 9-18 [facility] Comment on above: Order Comment: Speci men Type: BLOOD SPECIMEN Ordering Facility: [facility] Address: [address] [place] [address] Performed By: #### 2 4323-8 #### [facility] CLIA [id number] [address] [place] [address] [place] AST [Catalytic activity/Vol] 16 U/L Normal 14-40 [facility] Comment on above: Order Comment: Speci men Type: BLOOD SPECIMEN Ordering Facility: [facility] Address: [address] [place] [address] Performed By: #### 2 4323-8 #### [facility] CLIA [id number] [address] [place] [address] [place] Bilirubin [Mass/Vol] 0.3 mg/dL Normal 0.2-1.3 [facility] Comment on above: Order Comment: Speci men Type: BLOOD SPECIMEN Ordering Facility: [facility] Address: [address] [place], [place] [phone] Performed By: #### 2 4323-8 #### [facility] CLIA [id number] [address] [place] [address] [place] Calcium [Mass/Vol] 9.4 mg/dL Normal 8.5-10.2 [facility] Comment on above: Order Comment: Speci men Type: BLOOD SPECIMEN Ordering Facility: [facility] Address: [address] [place] [address] Performed By: #### 2 4323-8 #### [facility] CLIA [id number] [address] [place] [address] [place] Chloride [Moles/Vol] 107 mmol/L High 97-105 [facility] Comment on above: Order Comment: Speci men Type: BLOOD SPECIMEN Ordering Facility: [facility] Address: [address] [place] [address] Performed By: #### 2 4323-8 #### [facility] CLIA [id number] [address] [place] [address] [place] CO2 [Moles/Vol] 16 mmol/L Low 22-30 [facility] Comment on above: Order Comment: Speci men Type: BLOOD SPECIMEN Ordering Facility: [facility] Address: [address] [place] [address] Performed By: #### 2 4323-8 #### [facility] CLIA [id number] [address] [place] [address] [place] Creatinine [Mass/Vol] 1.46 mg/dL High 0.73-1.22 [facility] Comment on above: Order Comment: Speci men Type: BLOOD SPECIMEN Ordering Facility: [facility] Address: [address] [place], [place] [id number] Performed By: #### 2 4323-8 #### [facility] CLIA [id number] [address] [place] [address] [place] ESTIMATED GLOMERULAR FILTRATION RATE 49 mL/min/1.73m??? Low >=60 [facility] Comment on above: Order Comment: Speci men Type: BLOOD SPECIMEN Ordering Facility: [facility] Address: [address] [place], [place] [phone] Result Comment: Veronica mated Glomerular Filtration Rate (eGFR) is calculated using the 2020 CKD-EPI creatinine equation. This equation utilizes serum creatinine, sex, and age as parameters. The creatinine assay has traceable calibration to isotope dilution-mass spectrometry. Refer to KDIGO guidelines for clinical interpretation. In patients with unstable renal function, e.g. those with acute kidney injury, the eGFR may not accurately reflect actual GFR. Performed By: #### 2 4323-8 #### [facility] [id number] [address] [place] [address] [place] Glucose [Mass/Vol] 136 mg/dL High 74-99 [facility] Comment on above: Order Comment: Chyna peterson Type: BLOOD SPECIMEN Ordering Facility: [facility] Address: [address] [place] [address] Result Comment: The [place] [employer] (ADA) provides guidance for cutoff values for fasting glucose and random glucose. The ADA defines fasting as no caloric intake for at least 8 hours. Fasting plasma glucose results between 100 to 125 mg/dL indicate increased risk for diabetes (prediabetes). Fasting plasma glucose results greater than or equal to 126 mg/dL meet the criteria for diagnosis of diabetes. In the absence of unequivocal hyperglycemia, results should be confirmed by repeat testing. In a patient with classic symptoms of hyperglycemia or hyperglycemic crisis, random plasma glucose results greater than or equal to 200 mg/dL meet the criteria for diagnosis of diabetes. Reference: Standards of Medical Care in Diabetes 2016, [place] [employer]. Diabetes Care. 2016.39(Suppl 1). Performed By: #### 2 4323-8 #### [facility] [id number] [address] [place] [address] [place] Potassium [Moles/Vol] 4.8 mmol/L Normal 3.7-5.1 [facility] Comment on above: Order Comment: Chyna peterson Type: BLOOD SPECIMEN Ordering Facility: [facility] Address: [address] [place] [address] Performed By: #### 2 4323-8 #### [facility] CLIA [id number] [address] [place] [address] [place] Protein [Mass/Vol] 7.7 g/dL Normal 6.3-8.0 [facility] Comment on above: Order Comment: Speci men Type: BLOOD SPECIMEN Ordering Facility: [facility] Address: [address] [place] [address] Performed By: #### 2 4323-8 #### [facility] CLIA [id number] [address] [place] [address] [place] Sodium [Moles/Vol] 139 mmol/L Normal 136-144 [facility] Comment on above: Order Comment: Speci men Type: BLOOD SPECIMEN Ordering Facility: [facility] Address: [address] [place] [address] Performed By: #### 2 4323-8 #### [facility] CLIA [id number] [address] [place] [address] [place] Urea nitrogen [Mass/Vol] 34 mg/dL High 9-24 [facility] Comment on above: Order Comment: Speci men Type: BLOOD SPECIMEN Ordering Facility: [facility] Address: [address] [place] [address] Performed By: #### 2 4323-8 #### [facility] CLIA [id number] [address] [place] [address] [place] Ferritin SerPl-mCncon 2021 Ferritin [Mass/Vol] 105.0 ng/mL Normal 30.3-565.7 [facility] Comment on above: Order Comment: Speci men Type: BLOOD SPECIMEN Ordering Facility: [facility] Address: [address] [place] [address] Performed By: #### 5 0190-8, 2276-4 #### [facility] CLIA [id number] [address] [place] [address] [place] [address] [place] Iron and Iron binding capaci ty panelon 11-17-2021 Iron [Mass/Vol] 45 ug/dL Normal 41-186 [facility] Comment on above: Order Comment: Speci men Type: BLOOD SPECIMEN Ordering Facility: [facility] Address: [address] [place] [address] Performed By: #### 5 0190-8, 2276-4 #### [facility] CLIA [id number] [address] [place] [address] [place] Iron binding capacity [Mass/Vol] 326 ug/dL Normal 232-386 [facility] Comment on above: Order Comment: Speci men Type: BLOOD SPECIMEN Ordering Facility: [facility] Address: [address] [place] [address] Performed By: #### 5 0190-8, 2276-4 #### [facility] CLIA [id number] [address] [place] [address] [place] Iron/TIBC [Molar ratio] 13.8 % Low 15.0-57.0 [facility] Comment on above: Order Comment: Speci men Type: BLOOD SPECIMEN Ordering Facility: [facility] Address: [address] [place] [address] Performed By: #### 5 0190-8, 2276-4 #### [facility] CLIA [id number] [address] [place] [address] [place] PSA [facility]-ncon 11-17-2021 Prostate specific Ag [Mass/Vol] 2.04 ng/mL Normal <2.60 [facility] Comment on above: Order Comment: Speci men Type: BLOOD SPECIMEN Ordering Facility: [facility] Address: [address] [place] [address] Result Comment: Tota l PSA test methodology used is the Electrochemiluminescence Immunoassay by [employer]. Total PSA values by differing methodologies cannot be interchanged. Performed By: #### 2 857-1 #### [facility] CLIA [id number] [address] [id number] [place] Encounters Encounter Date Encounter Type Care Provider Facility Start: 05-26-2022 End: 05-26-2022 ambulatory PACO EDMONDS Facility:[facility] Start: 11-19-2021 End: 11-19-2021 ambulatory PACO EDMONDS Facility:[facility] Start: 11-17-2021 End: 11-17-2021 ambulatory PACO EDMONDS Facility:[facility] Start: 11-17-2021 End: 11-17-2021 Subsequent hospital visit by physician Ct [facility] (I-Stat) Work Phone: [facility] Comment on above: Lung nodules [R91.8] Procedures Date Procedure Procedure Detail Performing Clinician Start: 11-17-2021 Ct thorax w/o contra st material Paco Edmonds MD Work Phone: Start: 09-28-[address] screening assessment [address] (I-Stat) Work Phone: Plan of Treatment Date Care Activity Detail Author Start: 11-17-2024 DIABETES SCREEN DIABETES SCREEN [facility] Start: 01-14-2022 Influenza vaccination INFLUENZA (#1) [facility] Start: 05-16-2021 ADVANCE DIRECTIVE DISCUSSION ADVANCE DIRECTIVE DISCUSSION [facility] Start: 09-28-2018 Adult depression screening assessment DEPRESSION SCREENING [facility] Start: 01-14-2008 PNEUMOCOCCAL: 65+ (1 - PCV) PNEUMOCOCCAL: 65+ (1 - PCV) [facility] Start: 1993 SHINGRIX VACCINE (1 of 2) SHINGRIX VACCINE (1 of 2) [facility] Start: 1962 Urine microalbumin profile DTAP,TDAP,TD (1 - Tdap) [facility] Start: 1961 ANNUAL PCP TEAM NAVIGATION OFFICER ANETA DISEASE VISIT ANNUAL PCP TEAM CHRONIC DISEASE VISIT [facility] Start: 1961 BP CONTROLLED (<130/80) BP CON TROLLED (<130/80) [facility] Ct thorax w/o contra st material CT CHEST WO IVCON Radiology Routine Lung nodules Malignant neoplasm of prostate (HCC) 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) 11/17/2021 10:45 AM EDT [facility] Work Phone: [facility] Immunizations Immunization Date Immunization Notes Care Provider Fa cility 03-12-2015 influenza, high dose seasonal, preservative-free Ct (I-Stat) Work Phone: [facility] Payers Date Payer Category Payer Private Health Insurance [facility] AARP SUPPLEMENT [id number] 2012-Present [phone] [address] [place] [address] Indemnity [id number] 2012 Unknown [id number] 2007 Medicare MEDICARE MEDICAR E A AND B [id number] 2007-Present [phone] [address] [address] [place] [address] Medicare [id number] 2007 Medicare [id number] Social History Date Type Detail Facility Start: 04-30-2013 Tobacco smoking stat us IDIS Never smoked tobacco [facility] Start: 04-30-2013 Tobacco use and exposure Smoke less tobacco non-user [facility] Start: 05-13-2021 Alcohol intake Current drinke r of alcohol (finding) [facility] Start: 06-17-2016 History SDOH Alcohol Comment rare [facility] Start: 1945 Sex Assigned At Male [facility] Start: 11-07-2021 End: 11-17-2021 Exposure to SARS-CoV-2 (event) Not sure [facility] Progress note 05-26-2022 Note Date & Type Note Facility 05-26-2022 Note HNO ID: [id number] Author: Paco Edmonds MD Service: ? Author Type: Physician Type: Progress Notes Filed: 05/27/2022 10:53 AM Note Text: Hematology and Medical Oncology PATIENT NAME: Vilma Smith. CLINIC NO: [id number]. ATTENDING PHYSICIAN: Paco Edmonds MD. DATE OF [...] Patient had progression of prostate cancer in 2017. He developed bilateral hydronephrosis as well as bilateral pulmonary nodules. He saw Dr. Cunningham and started on androgen ablation therapy. He had bilateral ureteral stents and has no flank pain or hematuria. Follow-up CT scan last month showed improvement or decrease in size of his pulmonary nodules as well as hydronephrosis and decrease in his PSA. Current treatment: OCTAVIA ( hormone sensitive; metastatic prostate cancer ) [...] Abs Lymph 1.00 - 4.00 k/uL 1.25 Isabela% % 8.7 Abs Isabela <0.87 k/uL 0.54 Eosin% % 5.6 Abs [...] - 105 mmol (more content not included)... [facility] Progress note 11-19-2021 Note Date & Type Note Facility 11-19-2021 Note HNO ID: [id number] Author: Paco Edmonds MD Service: ? Author Type: Physician Type: Progress Notes Filed: 11/20/2021 9:00 AM Note Text: Hematology and Medical Oncology PATIENT NAME: Vilma Smith. CLINIC NO: [id number]. ATTENDING PHYSICIAN: Paco Edmonds MD. DATE OF [...] Abs Lymph 1.00 - 4.00 k/uL 1.17 Isabela% % 9.0 Abs Isabela <0.87 k/uL 0.57 Eosin% % 8.4 Abs [...] % 13.8 ( (more content not included)... [facility] Progress note 11-17-2021 Note Date & Type Note Facility 11-17-2021 Note HNO ID: [id number] Author: RT Pieor(Titus) Service: ? Author Type: Call Or Contact Centre Coach Type: Progress Notes Filed: 11/17/2021 12:04 PM [...] IV DATA: Not applicable SIGNED BY: RT Gurpreet(R) November 17, 2021 12:03 PM [facility] History of Present illness Narrative 11-17-2021 YAN Harry) - 11/17/2021 10:20 AM EDT Note Date [...] IV DATA: Not applicable SIGNED BY: RT Gurpreet(R) November 17, 2021 12:03 PM documented in this encounter [facility] History of Past illness Narrative 07-27-2013 Note Date & Type Note Facility 07-27-2013 History of Past i llness Narrative Problem Noted Date Resolved Date Post-op pain 07/27/2013 01/11/2014 Overview: Oxycodone 5/325 mg 1-2 tablets by mouth Q 4 PRN for post-operative pain control. Ileus 07/24/2013 01/11/2014 Overview: Patient with 300 cc output from ostomy overnight -continue to monitor output Rectal adenocarcinoma 06/20/2013 02/11/2014 Anal lesion 04/30/2013 03/11/2014 Rectal cancer 02/11/2014 documented as of this encounter (statuses as of 11/18/2021) [facility] Evaluation note Note Date & Type Note Facility Evaluation note Diagnosis Lung nodules Other nonspecific abnormal finding of lung field Malignant neoplasm of prostate (HCC) Malignant neoplasm of prostate 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) documented in this encounter [facility] Reason for Referral Specialty Diagnoses / Procedures Referred By Contac t Referred To Contact CT IMAGING Diagnoses Lung nodules Malignant neoplasm of prostate (HCC) 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) Procedures CT CHEST WO [facility] CAT SCAN OF CHEST Paco Edmonds MD [address] [place] [address] Ct Imaging Referral ID Status Reason Start Date Expiration Date V isits Requested Visits Authorized [id number] Closed Auto-Generate d Referral 11/11/2021 06/12/2022 1 1 Advance Directives No Advanced Directives Records FoundDocuments on File Type Date Recorded Patient Manager Code Expl anation Advance Directive(s) 06/21/2017 9:26 AM [...] or prosecute any alcohol or drug abuse patient.[facility] Reason for Visit (unrecogniz ed section and content) Reason Comments Radiology CT Specialty Diagnoses / Procedures Referred By Contac t Referred To Contact CT IMAGING Diagnoses Lung nodules Malignant neoplasm of prostate (HCC) 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) Procedures CT CHEST WO [facility] CAT SCAN OF CHEST Paco Edmonds MD [address] [place] [address] Ct Imaging Referral ID Status Reason Start Date Expiration Date V isits Requested Visits Authorized [id number] Closed Auto-Generate d Referral 11/11/2021 06/12/2022 1 1 Care Teams (unrecognized sec tion and content) Air Intelligence Specialist Relationship Specialty Start Date End Date Rigo Manrique MD PCP - General Family Practice 03/21/17 Siddharth Navarro [address] [place] [address] [phone] Specialty Tree Trimmer Helper Urology 09/28/17 (unrecognized sect ion and content) No Status Records Found INFORMATION SOURCE (unrecogn ized section and content) DATE CREATED AUTHOR 05/28/2022 [facility] FOR RECORDS PERTAINING TO PATIENTS WHO ARE [...] BE BASED ON THE PRIMARY CLINICAL RECORDS. [facility]. provides no warranty or guarantee of the accuracy or completeness of information in this document.
[2024-04-02 20:20] LABS: Anion Gap 8 (5-15); BUN 42 mg/dL (7-18); BUN/Creat Ratio 26.4 RATIO (10-20); Chloride 113 mmol/L (98-107); Creatinine, Serum 1.59 mg/dL (0.70-1.30); EST Glomerular Filtration Rate 45 mL/min (>60); Est Glom Filt Rate - Afr Amer 54 mL/min (>60); Estimated Creatinine Clearance 37.62 ml/min; Glucose 164 mg/dL (74-106); Potassium 3.3 mmol/L (3.5-5.1); Sodium Level 140 mmol/L (136-145)
[2024-04-02] MEDS: 0.9% Normal Saline (1000mL) 1,000 ML 75 ML IV (23:09)
[2024-04-02] MEDS: Piperacil/Tazobactam 3.375 GM in 0.9% Normal Saline (50mL MB+) 50 ML IV (23:09)
[2024-04-02] MEDS: hydrALAZINE 25 MG Tablet PO (23:13)
[2024-04-02] MEDS: Acetaminophen 500 MG Tablet 1000 MG PO (23:13)
[2024-04-02] MEDS: Atorvastatin Calcium 10 MG Tablet PO (23:13)
[2024-04-03] VITALS (18 sets, daily range): BP systolic 113–161; BP diastolic 53–82; PULSE 66–88; RESP 14–18; TEMP 36.3–37.6; O2SAT 99–100; BMI 23.6
[2024-04-03 00:07] LABS: Anion Gap 8 (5-15); BUN 39 mg/dL (7-18); BUN/Creat Ratio 29.1 RATIO (10-20); Calcium,Total 8.2 mg/dL (8.5-10.1); Chloride 114 mmol/L (98-107); Creatinine, Serum 1.34 mg/dL (0.70-1.30); EST Glomerular Filtration Rate 54 mL/min (>60); Est Glom Filt Rate - Afr Amer 66 mL/min (>60); Estimated Creatinine Clearance 44.64 ml/min; Glucose 162 mg/dL (74-106); Potassium 3.9 mmol/L (3.5-5.1); Sodium Level 142 mmol/L (136-145)
[2024-04-03] MEDS: Ondansetron 4 MG/2 ML Vial IV (05:58)
[2024-04-03] MEDS: Piperacil/Tazobactam 3.375 GM in 0.9% Normal Saline (50mL MB+) 50 ML IV ×3 (05:59→22:43)
[2024-04-03] MEDS: hydrALAZINE 25 MG Tablet PO ×3 (05:59→22:44)
[2024-04-03] MEDS: Acetaminophen 500 MG Tablet 1000 MG PO ×3 (05:59→22:44)
[2024-04-03 06:57] LABS: Absolute Lymphocyte Count 0.46 X10^3/uL (0.83-4.51); Absolute Neutrophil Count 5.8 X10^3/uL (2.0-7.7); Basophil# 0.01 X10^3/uL; Basophil% 0.1 % (0-1); Eosinophil# 0.01 X10^3/uL; Eosinophils% 0.1 % (0-5); Hematocrit 33.4 % (40-54); Hemoglobin 10.7 g/dL (13.0-16.5); Lymphocyte # 0.46 X10^3/ul (0.83-4.51); Lymphocyte % 6.5 % (19-41); Mean Corpuscular Hgb 28.6 pg (27.0-32.0); Mean Corpuscular Volume 89.3 fL (80-94); Mean Platelet Vol. 10.1 fl (6.2-12.0); Monocyte# 0.77 X10^3/uL; Monocyte% 10.9 % (0-10); NRBC Flagged by Analyzer 0 % (0-5); Neutrophil # 5.77 X10^3/uL (2.7-7.7); Neutrophil % 81.7 % (47-70); POSITIVE DIFFERENTIAL YES; Platelet Count 208 K/mm3 (150-450); RBC Distribution Width CV 18.3 % (11.6-14.6); Red Blood Count 3.74 M/mm3 (4.6-6.2); White Blood Count 7.1 K/mm3 (4.4-11.0)
--- NOTE | 2024-04-03 07:22 | PCM.CONS.U ---
Assessment & Plan Assessment/Plan (1) Acute on chronic kidney failure: PLAN: Plan for cystoscopy and bilateral stent change today to help improve his renal function and also help clear out this recent infection patient is undergoing chemotherapy for his advanced cancer. 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 He is due for stent change organ to proceed with cystoscopy bilateral stent change today in the operating room has been on the add-on schedule hopefully around noon today. 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 Anemia Edema of both lower legs Prerenal azotemia Diarrhea due to drug Encounter for education Elevated PSA Torn meniscus Chronic pain COVID History of Clostridium difficile infection Indwelling urethral catheter present Diabetes Gout High cholesterol Non-smoker History of anal cancer Cancer HTN (hypertension) Home Medications ?Medication ?Instructions ?Recorded ?Last Taken ?Type losartan 100 mg tablet 100 mg PO DAILY bp 06/01/13 01/09/24 History metoprolol succinate 100 mg 100 mg PO DAILY bp 06/01/13 01/09/24 History tablet,extended release 24 hr metformin 500 mg tablet,extended 500 mg PO DAILY DIABETES 04/25/20 03/05/23 History release 24 hr rosuvastatin 5 mg tablet 5 mg PO DAILY CHOLESTEROL 12/16/21 03/04/23 History amlodipine 10 mg tablet 10 mg PO DAILY BP 01/07/23 01/09/24 History hydralazine 25 mg tablet 25 mg PO TID 30 days #90 tabs 03/23/23 Unknown Rx abiraterone 500 mg tablet 1,000 mg PO DAILY 12/30/23 Unknown History lidocaine-prilocaine 2.5 %-2.5 % 1 applic topical ONCE PRN port 01/09/24 Unknown Rx topical cream access 30 days #30 grams omeprazole 20 mg capsule,delayed 20 mg PO DAILY #30 caps 01/09/24 Unknown Rx release potassium chloride 20 mEq 40 meq (2 x 20 mEq) PO DAILY 30 03/08/24 Unknown Rx tablet,extended release(part/cryst) days #60 tabs prednisone 5 mg tablet 5 mg PO BID #60 tabs 03/14/24 Unknown Rx loperamide 2 mg capsule (Imodium 2 mg PO Q6H PRN loose stool 03/22/24 Unknown History A-D) ondansetron HCl 8 mg tablet 8 mg PO Q8H #30 tabs 03/28/24 Unknown Rx prochlorperazine maleate 10 mg 10 mg PO Q6H PRN nausea and 03/28/24 Unknown Rx tablet (Compazine) vomiting #30 tabs Allergy/AdvReac Type Severity Reaction Status Date / Time hydromorphone (From Dilaudid) AdvReac Other Verified 04/02/24 15:48 meperidine (From Demerol) AdvReac Nausea/Vom/ Verified 04/02/24 15:48 Diarrhea Family History Father Myocardial infarction Surgical History Hx of colectomy History of total left knee replacement S/P total knee arthroplasty Hx of cystoscopy Hx of left knee surgery Hx of cystoscopy Hx of cystoscopy Hx of cystoscopy (~05/28/20) Hx of cystoscopy (~01/23/20) Hx of dilation of urethra Hx of cystoscopy Hx of cystoscopy Hx of cystoscopy History of removal of Port-a-Cath Hx of colonoscopy Hx of cataract surgery History of back surgery History of cholecystectomy History of appendectomy Social History household members: spouse Smoking Status: Never smoker alcohol intake: never substance use type: does not use ROS Constitutional Constitutional: Denies chills, fever(s) or malaise Eyes Eyes: Denies blurry vision or change in vision ENT HEENT: Reports none Cardiovascular Cardiovascular: Denies chest pain or palpitations Respiratory/Chest Respiratory/Chest: Denies cough or shortness of breath with exertion Gastrointestinal Gastrointestinal: Denies abdominal pain, constipation or diarrhea Musculoskeletal Musculoskeletal: Denies back pain, joint stiffness or joint swelling Integumentary Integumentary: Denies dry skin, jaundice, lesions or rash Neurologic Neurologic: Denies confusion, syncope or weakness Psychiatric Psychiatric: Reports none; Denies anxiety or depression Endocrine Endocrinology: Denies excessive sweating, fatigue or flushing Hematologic/Lymphatic Hematologic/Lymphatic: Denies anemia, easy bleeding or easy bruising Physical Exam Const alert and oriented x3 General Appearance: cooperative HEENT normocephalic and head/scalp atraumatic Eyes PERRL and EOMs intact bilaterally Neck supple, no JVD and no carotid bruits Resp normal respiratory effort, normal air movement and clear to auscultation bilaterally Cardio regular rate and no murmurs GI normal to inspection, nondistended, normoactive bowel sounds and soft to palpation Extremity normal capillary refill General Extremity: no tenderness to palpation of joints or extremities; Negative for edema Skin no rashes or lesions noted and no wounds General Skin Exam: no breakdown Neuro CN's II-XII intact bilaterally Psych affect normal Appearance: appropriate Lab / Micro Data 04/03/24 06:33 04/02/24 23:42 Labs: Laboratory Results - last 24 hr 04/02/24 10:40: WBC 10.9, RBC 3.94 L, Hgb 11.3 L, Hct 34.8 L, MCV 88.3, MCH 28.7, MCHC 32.5, RDW Std Deviation 57.4 H, RDW Coeff of [place] 18.3 H, Plt Count 210, MPV 9.9, Immature Gran % (Auto) 0.600, Neut % (Auto) 83.2 H, Lymph % (Auto) 4.2 L, [place] % (Auto) 11.8 H, Eos % (Auto) 0.0, Baso % (Auto) 0.2, Absolute Neuts (auto) 9.1 H, Absolute Lymphs (auto) 0.46 L, Nucleated RBC % 0, Sodium 140, Potassium 3.3 L, Chloride 114 H, Carbon Dioxide 16.0 L, Anion Gap 10, BUN 41 H, Creatinine 1.64 H, Estim Creat Clear Calc 36.48, Est GFR (MDRD) Af Amer 52 L, Est GFR (MDRD) Non-Af 43 L, BUN/Creatinine Ratio 25.0 H, Glucose 145 H, Lactic Acid 1.3, Calcium 7.9 L, Total Bilirubin 0.80, AST 16, ALT 20, Alkaline Phosphatase 66, Total Protein 4.4 L, Albumin 1.8 L, Globulin 2.6, Albumin/Globulin Ratio 0.7 L 04/02/24 12:31: Urine Color Carol, Urine Clarity Cloudy, Urine pH 8.0, Ur Specific [place] 1.010, Urine Protein 500 H, Urine Glucose (UA) Normal, Urine Ketones 5 H, Urine Occult Blood 150 H, Urine Nitrite Negative, Urine Bilirubin Negative, Urine Urobilinogen Normal, Ur Leukocyte Esterase 500 H, Urine RBC 5-10 SEEN, Urine WBC 25-50 SEEN, Ur Squamous Epith Cells 0 SEEN, Amorphous Sediment 3+ PHOS, Urine Bacteria 3+, Urine Mucus 0 SEEN 04/02/24 16:20: Sodium 142, Potassium 3.3 L, Chloride 114 H, Carbon Dioxide 19.0 L, Anion Gap 10, BUN 42 H, Creatinine 1.58 H, Estim Creat Clear Calc 37.86, Est GFR (MDRD) Af Amer 54 L, Est GFR (MDRD) Non-Af 45 L, BUN/Creatinine Ratio 26.6 H, Glucose 126 H, Calcium 8.1 L 04/02/24 19:53: Sodium 140, Potassium 3.3 L, Chloride 113 H, Carbon Dioxide 19.0 L, Anion Gap 8, BUN 42 H, Creatinine 1.59 H, Estim Creat Clear Calc 37.62, Est GFR (MDRD) Af Amer 54 L, Est GFR (MDRD) Non-Af 45 L, BUN/Creatinine Ratio 26.4 H, Glucose 164 H, Calcium 8.0 L 04/02/24 23:42: Sodium 142, Potassium 3.9, Chloride 114 H, Carbon Dioxide 19.0 L, Anion Gap 8, BUN 39 H, Creatinine 1.34 H, Estim Creat Clear Calc 44.64, Est GFR (MDRD) Af Amer 66, Est GFR (MDRD) Non-Af 54 L, BUN/Creatinine Ratio 29.1 H, Glucose 162 H, Calcium 8.2 L 04/03/24 06:33: WBC 7.1, RBC 3.74 L, Hgb 10.7 L, Hct 33.4 L, MCV 89.3, MCH 28.6, MCHC 32.0, RDW Std Deviation 58.0 H, RDW Coeff of [place] 18.3 H, Plt Count 208, MPV 10.1, Immature Gran % (Auto) 0.700, Neut % (Auto) 81.7 H, Lymph % (Auto) 6.5 L, Charlotte % (Auto) 10.9 H, Eos % (Auto) 0.1, Baso % (Auto) 0.1, Absolute Neuts (auto) 5.8, Absolute Lymphs (auto) 0.46 L, Nucleated RBC % 0 Micro: Microbiology 04/02/24 14:18 Mucosa - Nasopharyngeal Respiratory Panel (PCR) - Final ABG Data ABG results: ABG 04/02/24 14:47 Specimen Type ART Sample Site R Brach pH 7.45 Bicarbonate Actual 15.7 L Total CO2 16 Base Excess -8 L O2 Saturation 98 ABG pCO2 22.8 L ABG pO2 101 H O2 Delivery Device Room Air Vent Mode Not entered Imaging Radiology Impression Chest X-Ray 04/02/24 10:50 IMPRESSION: No acute abnormality is seen. Electronically Signed: Matthew Umana MD at 11:06 EST , Abdomen/Pelvis CT 04/02/24 13:49 IMPRESSION: Bilateral hydronephrosis and hydroureter down to the level of the bladder with bilateral double-J stent catheters. Bladder wall thickening. Guthrie catheter is seen within the urinary bladder. Stable presacral soft tissue density. Findings in keeping with hepatic metastasis. Electronically Signed: Matthew Umana MD at 14:46 EST ,
[2024-04-03 07:29] LABS: ALB/GLOB Ratio 0.6 RATIO (0.9-2.4); AST(SGOT) 16 U/L (15-37); Alanine Aminotransfer ALT/SGPT 20 U/L (16-61); Albumin, Serum 1.8 g/dL (3.2-5.0); Alkaline Phosphatase 67 U/L (45-117); Anion Gap 5 (5-15); BUN 36 mg/dL (7-18); BUN/Creat Ratio 24.5 RATIO (10-20); Calcium,Total 8.1 mg/dL (8.5-10.1); Chloride 117 mmol/L (98-107); Creatinine, Serum 1.47 mg/dL (0.70-1.30); EST Glomerular Filtration Rate 49 mL/min (>60); Est Glom Filt Rate - Afr Amer 59 mL/min (>60); Estimated Creatinine Clearance 40.69 ml/min; Globulin 2.9 g/dL (2.2-4.2); Glucose 150 mg/dL (74-106); Magnesium 1.5 mg/dL (1.6-2.6); Phosphorus 2.8 mg/dL (2.5-4.9); Protein, Total 4.7 g/dL (6.4-8.2); Sodium Level 143 mmol/L (136-145)
--- NOTE | 2024-04-03 07:29 | PCM.PN.HOSP ---
Reason for Visit Reason for Visit: Diagnoses Malignant neoplasm of prostate (04/02/24) Secondary malignant neoplasm of liver and intrahepatic bile duct (04/02/24) Acidosis, unspecified (04/02/24) Alkalosis (04/02/24) Hypokalemia (04/02/24) Other disorders of electrolyte and fluid balance, not elsewhere classified (04/02/24) Toxic gastroenteritis and colitis (04/02/24) Acute kidney failure, unspecified (04/02/24) Chronic kidney disease, unspecified (04/02/24) Urinary tract infection, site not specified (04/02/24) Weakness (04/02/24) Adverse effect of antineoplastic and immunosuppressive drugs, initial encounter (04/02/24) Subjective Subjective And nausea. Though feeling better currently. Objective Data Objective Data Vital Signs: Vital Signs Temp Pulse Resp BP Pulse Ox O2 Del Method 36.3 C L 85 18 145/67 H 99 Room Air 04/03/24 03:03 04/03/24 05:59 04/03/24 03:03 04/03/24 05:59 04/03/24 03:03 04/03/24 03:07 Oxygen Delivery Method Room Air Weight: 74.7 kg Body Mass Index (BMI) 23.6 Intake & Output: Intake and Output for Last 24 Hours 04/01/24 04/02/24 04/03/24 23:59 23:59 23:59 Intake Total 562.5 / 762.5 280 / 280 Output Total 200 / 700 900 / 900 Balance 362.5 / 62.5 -620 / -620 Lab / Micro Data 04/03/24 06:33 04/03/24 06:33 Labs: Laboratory Results - last 24 hr 04/02/24 10:40: WBC 10.9, RBC 3.94 L, Hgb 11.3 L, Hct 34.8 L, MCV 88.3, MCH 28.7, MCHC 32.5, RDW Std Deviation 57.4 H, RDW Coeff of [place] 18.3 H, Plt Count 210, MPV 9.9, Immature Gran % (Auto) 0.600, Neut % (Auto) 83.2 H, Lymph % (Auto) 4.2 L, [place] % (Auto) 11.8 H, Eos % (Auto) 0.0, Baso % (Auto) 0.2, Absolute Neuts (auto) 9.1 H, Absolute Lymphs (auto) 0.46 L, Nucleated RBC % 0, Sodium 140, Potassium 3.3 L, Chloride 114 H, Carbon Dioxide 16.0 L, Anion Gap 10, BUN 41 H, Creatinine 1.64 H, Estim Creat Clear Calc 36.48, Est GFR (MDRD) Af Amer 52 L, Est GFR (MDRD) Non-Af 43 L, BUN/Creatinine Ratio 25.0 H, Glucose 145 H, Lactic Acid 1.3, Calcium 7.9 L, Total Bilirubin 0.80, AST 16, ALT 20, Alkaline Phosphatase 66, Total Protein 4.4 L, Albumin 1.8 L, Globulin 2.6, Albumin/Globulin Ratio 0.7 L 04/02/24 12:31: Urine Color Carol, Urine Clarity Cloudy, Urine pH 8.0, Ur Specific [place] 1.010, Urine Protein 500 H, Urine Glucose (UA) Normal, Urine Ketones 5 H, Urine Occult Blood 150 H, Urine Nitrite Negative, Urine Bilirubin Negative, Urine Urobilinogen Normal, Ur Leukocyte Esterase 500 H, Urine RBC 5-10 SEEN, Urine WBC 25-50 SEEN, Ur Squamous Epith Cells 0 SEEN, Amorphous Sediment 3+ PHOS, Urine Bacteria 3+, Urine Mucus 0 SEEN 04/02/24 16:20: Sodium 142, Potassium 3.3 L, Chloride 114 H, Carbon Dioxide 19.0 L, Anion Gap 10, BUN 42 H, Creatinine 1.58 H, Estim Creat Clear Calc 37.86, Est GFR (MDRD) Af Amer 54 L, Est GFR (MDRD) Non-Af 45 L, BUN/Creatinine Ratio 26.6 H, Glucose 126 H, Calcium 8.1 L 04/02/24 19:53: Sodium 140, Potassium 3.3 L, Chloride 113 H, Carbon Dioxide 19.0 L, Anion Gap 8, BUN 42 H, Creatinine 1.59 H, Estim Creat Clear Calc 37.62, Est GFR (MDRD) Af Amer 54 L, Est GFR (MDRD) Non-Af 45 L, BUN/Creatinine Ratio 26.4 H, Glucose 164 H, Calcium 8.0 L 04/02/24 23:42: Sodium 142, Potassium 3.9, Chloride 114 H, Carbon Dioxide 19.0 L, Anion Gap 8, BUN 39 H, Creatinine 1.34 H, Estim Creat Clear Calc 44.64, Est GFR (MDRD) Af Amer 66, Est GFR (MDRD) Non-Af 54 L, BUN/Creatinine Ratio 29.1 H, Glucose 162 H, Calcium 8.2 L 04/03/24 06:33: WBC 7.1, RBC 3.74 L, Hgb 10.7 L, Hct 33.4 L, MCV 89.3, MCH 28.6, MCHC 32.0, RDW Std Deviation 58.0 H, RDW Coeff of [place] 18.3 H, Plt Count 208, MPV 10.1, Immature Gran % (Auto) 0.700, Neut % (Auto) 81.7 H, Lymph % (Auto) 6.5 L, [place] % (Auto) 10.9 H, Eos % (Auto) 0.1, Baso % (Auto) 0.1, Absolute Neuts (auto) 5.8, Absolute Lymphs (auto) 0.46 L, Nucleated RBC % 0 Micro: Microbiology 04/02/24 14:18 Mucosa - Nasopharyngeal Respiratory Panel (PCR) - Final ABG Data ABG results: ABG 04/02/24 14:47 Specimen Type ART Sample Site R Brach pH 7.45 Bicarbonate Actual 15.7 L Total CO2 16 Base Excess -8 L O2 Saturation 98 ABG pCO2 22.8 L ABG pO2 101 H O2 Delivery Device Room Air Vent Mode Not entered Radiography Diagnostic Testing: Radiology Impression Chest X-Ray 04/02/24 10:50 IMPRESSION: No acute abnormality is seen. Electronically Signed: Matthew Umana MD at 11:06 EST , Abdomen/Pelvis CT 04/02/24 13:49 IMPRESSION: Bilateral hydronephrosis and hydroureter down to the level of the bladder with bilateral double-J stent catheters. Bladder wall thickening. Guthrie catheter is seen within the urinary bladder. Stable presacral soft tissue density. Findings in keeping with hepatic metastasis. Electronically Signed: Matthew Umana MD at 14:46 EST , Physical Exam Const alert and no apparent distress Constitutional Narrative: Up in bed. Alert. Nontoxic. Afebrile. HEENT head/scalp atraumatic and moist oral mucous membranes Resp normal respiratory effort, no retractions, no use of accessory muscles and clear to auscultation bilaterally Cardio regular rate, regular rhythm, S1 normal heart sound and S2 normal heart sound GI normal to inspection, nondistended, normoactive bowel sounds, soft to palpation, non-tender and non-distended Extremity normal to inspection and no clubbing, cyanosis or edema Neuro Sensorium / Orientation: awake and alert Psych affect normal Assessment & Plan Assessment/Plan (1) Acute on chronic kidney failure: (2) Chemotherapy induced diarrhea: (3) Complicated urinary tract infection: (4) Generalized weakness: (5) Respiratory alkalosis: (6) Metabolic acidosis: (7) Hypokalemia: (8) Hyperchloremia: PLAN: Plan Complicated urinary tract infection Patient with history of obstruction and chronic Guthrie/bilateral J stents/catheters Guthrie changed abx w pip/tazo follow up Cx CT showed bilateral hydroneprhosis and hydroureter down to the level of the bladder with bilateral double-J stents. contacted and plan is for stent exchange MEAGAN ruled out. Creatinine similiar to back in February. Chemo induced diarrhea Patient has been holding Xtandi for the last several days so his diarrhea has resolved Hold home loperamide since he is not taking the medication however he reports it has been resistant to every measure given to him by oncology Patient reports stool is slowly getting hard Hypokalemia improved with replacement. Debility PT OT eval and treat Metastatic prostate cancer Follows with Dr. Gonzales hold Xtandi due to diarrhea and encouraged patient to have further discussion with Dr. Gonzales at next visit as patient states it has been refractory to everything they have given him to decrease his diarrhea last chemotherapy with docetaxel on 03/28 Chronic conditions: HTN: amlodipine and losartan held for now. Continue hydralazine HLP: continue statin Essential hypertension/hyperlipidemia DM2: metformin held. Stable. Expectant mgmt. VTE prophylaxis: enoxaparin. Charges/Coding Visit Charges Inpatient E&M: 16818 Subs Hosp L2
[2024-04-03] MEDS: 0.9 % NaCl (Sterile) Posiflush 10 mL IV (09:17)
[2024-04-03] MEDS: proCHLORPERazine 10 MG/2 ML Vial 5 MG IV (09:18)
[2024-04-03] MEDS: Metoprolol(XL)Succ 100 MG Tablet PO (09:21)
--- NOTE | 2024-04-03 09:23 | WOUNDNOTE ---
Was consulted d/t patient having colostomy. patient has had colostomy for over 10 years and cares for the ostomy himself at home. pt currently uses a 2 piece disposable appliance. states he changes the flange 1-2 times a week and changes the bag once or twice a day depending on how loose his stool is. pt states he did not bring any appliances with him. pt asking this nurse to change the appliance this am. do not have the exact appliance that patient has, but changes the appliance to something similar. had suggested we use a drainable appliance, but patient prefers the disposable ones. pt had a moderate amount of unformed brown stool when appliance was off. patient cleaned and new appliance was placed. pt tolerated well.
[2024-04-03] MEDS: Magnesium Sulfate 2 GM in Dextrose 5%-Water (100mL Bag) 100 ML IV (09:35)
--- NOTE | 2024-04-03 10:20 | PRE.ANES_ITS ---
ASA Classification* ASA Classification ASA Classification: 3 and E Assessment & Plan Anesthesia* Anesthesia Assessment Anesthesia Assessment: Discussed sedation and/or anesthesia options, risks, benefits, and alternatives with patient/parents/legal guardian/POA. Questions invited. The patient/parents/legal guardian/POA seems to understand and agrees to proceed with anesthesia plan. Reviewed the physical assessment, medical history, allergy history and patient home medications list prior to surgery/procedure/anesthetic and documented any changes. Performed airway and anesthesia risk assessments. Anesthesia Type Anesthesia Type: MAC History Source History Obtained from:: Patient and Chart Anesthesia Focused Assessment* Temperature: 97.9 F Pulse Rate: 88 Blood Pressure: 161/82 Respiratory Rate: 18 Pulse Ox: 99 Oxygen Delivery Method: Room Air Airway Assessment Mouth opens: >3 cm Mallampati Score: IV Teeth Condition: Missing (Patient has a couple missing teeth. The rest of the teeth are tight.) Neck Range of motion (ROM): Limited ROM Pertinent Findings EKG Pertinent Findings:: April 02, 2024. Sinus tachycardia 102 bpm. Right bundle branch block. Focused Labs Anesthesia Preop lab: CBC WBC 7.1 K/mm3 (4.4-11.0) 04/03/24 06:33 RBC 3.74 M/mm3 (4.6-6.2) L 04/03/24 06:33 Hgb 10.7 g/dL (13.0-16.5) L 04/03/24 06:33 Hct 33.4 % (40-54) L 04/03/24 06:33 Plt Count 208 K/mm3 (150-450) 04/03/24 06:33 CHEMISTRY Potassium 4.0 mmol/L (3.5-5.1) 04/03/24 06:33 Sodium 143 mmol/L (136-145) 04/03/24 06:33 Magnesium 1.5 mg/dL (1.6-2.6) L 04/03/24 06:33 Phosphorus 2.8 mg/dL (2.5-4.9) 04/03/24 06:33 BUN 36 mg/dL (7-18) H 04/03/24 06:33 Creatinine 1.47 mg/dL (0.70-1.30) H 04/03/24 06:33 Glucose 150 mg/dL (74-106) H 04/03/24 06:33 POC Glucose 98 mg/dL (74-106) 01/09/24 10:31 TSH 2.06 uIU/mL (0.358-3.74) 10/03/23 11:31 COAG PT 13.6 SECONDS (11.7-14.9) 02/02/24 09:25 Pre-Assessment Diagnosis/Proposed Procedure Planned Operative Procedure(s): Cystoscopy with bilateral stent change. 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 When Was Last Pacemaker Check QUESTION #4 FULL TEXT: You/Your Family Experience fever (hyperthermia) with Anesthesia Last Oral Intake Last Oral intake: Last Oral Intake NPO since 00:00 04/03/24 09:23 Meds taken in AM with sips of Yes 04/03/24 09:23 water? Meds patient instructed to see MAr 04/03/24 09:23 take am of surgery Any additional information?: Yes Meds taken in AM with sips of water?: Yes PONV PONV - supervisor waterproofing: PONV - supervisor waterproofing Female HX of Motion Sickness HX of N/V After Surgery Non-Smoker Duration of Surgery greater than 60 minutes Number of Risk Factors PONV Score Height & Weight Height & Weight: Anesthesia: Height & Weight Height 5 ft 10.08 in 04/03/24 09:23 Weight: 74.7 kg 04/03/24 09:23 Body Mass Index (BMI) 23.6 04/03/24 09:23 Respiratory Assessment Respiratory Assessment - supervisor waterproofing: Respiratory Tract Infection Hx - supervisor waterproofing Hx Respiratory Tract Infection No 04/02/24 20:12 STOP Sleep Apnea STOP Sleep Apnea - supervisor waterproofing: STOP Sleep Apnea - supervisor waterproofing Hx Hypertension Yes: CONTROLLED WITH MEDS 04/03/24 09:50 Hx Sleep Apnea No 04/02/24 14:22 CPAP No 04/02/24 14:22 BIPAP No 04/02/24 14:22 Do you snore loudly (louder No 04/02/24 14:22 than talking or can be heard Do you often feel tired/ No 04/02/24 14:22 fatigued/ sleepy during daytime? Has anyone observed you stop No 04/02/24 14:22 breathing during sleep? STOP Results Negative 04/02/24 14:22 QUESTION #5 FULL TEXT : Do you snore loudly (louder than talking or can be heard through closed doors)? 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 History - supervisor waterproofing: Tobacco Use History - supervisor waterproofing Tobacco Use Smoking Status Never smoker 04/02/24 14:22 Hx Tobacco Use No 04/02/24 14:22 Years Smoking Packs Smoked per Day Smoking Cessation Date was within the last 15 years Hx Smoking Cessation Date Hx Smoking Cessation Counseling Hematologic Medial History Hematologic Hx - supervisor waterproofing: Hematologic Medical Hx - carcass splitter Hx of Blood Transfusion No 04/02/24 14:22 Hx of Transfusion in last 3 No 04/02/24 14:22 Months Date of Last Transfusion (if within last 3 months) Ever experience any problems No 04/02/24 14:22 with transfusion(s)? Specify any problems Hx of Preganancy in last 3 N/A 04/02/24 14:22 Months Nurse Filling Out Transfusion TCLEVIDEN 04/02/24 14:22 & Questions: Date: 04/02/24 04/02/24 14:22 Time: 15:53 04/02/24 14:22 Patient unable to answer at this time (ie. confused, unrespo /Reproduction History /Reproductive History - supervisor waterproofing: /Reproductive Hx- supervisor waterproofing Hx Now Gestational Age (in weeks): EDC: Hx Hx Para Hx Section SAB No 01/06/24 09:55 Active Medications Active Medications: Current Medications Generic Name Dose Route Start Last Admin Trade Name Freq PRN Reason Stop Dose Admin Acetaminophen 1,000 mg 04/02/24 22:00 04/03/24 05:59 Acetaminophen 500 Mg Tablet PO 1,000 mg Q8 TEE Administration Albuterol Sulfate 2.5 mg 04/02/24 15:38 Albuterol 2.5 Mg/3 Ml Vial.Neb. INHALATION Q2H PRN PRN SOB &/OR WHEEZING Atorvastatin Calcium 10 mg 04/02/24 22:00 04/02/24 23:13 Atorvastatin Calcium 10 Mg Tablet PO 10 mg QHS TEE Administration Calamine/Phenol 1 applic 04/02/24 16:26 Menthol/Lanolin/Calamine/Znox 113 Gm Tube TOPICAL TID PRN DIAPER RASH Protocol Enoxaparin Sodium 40 mg 04/03/24 10:00 04/03/24 07:25 Enoxaparin 40 Mg/0.4 Ml Syringe SC Not Given DAILY TEE Heparin Sodium (Beef Lung) 50 units 04/02/24 15:47 Heparin Pf Lock 10 Units/Ml 50 Units/5 Ml Syringe IV UD PRN Port-a-Cath (VAD)Heparin Flush Hydralazine HCl 25 mg 04/02/24 22:00 04/03/24 05:59 Hydralazine 25 Mg Tablet PO 25 mg TID TEE Administration Protocol Piperacillin Sod/Tazobactam 50 mls @ 12.5 mls/hr 04/02/24 22:00 04/03/24 05:59 Sod 3.375 gm/ Sodium Chloride IV 12.5 mls/hr Q8 TEE Administration Sodium Chloride 1,000 mls @ 75 mls/hr 04/02/24 22:50 04/03/24 09:35 IV 04/03/24 18:49 0 mls/hr .[id number] TEE Infusion Protocol Magnesium Sulfate 2 gm/ 104 mls @ 52 mls/hr 04/03/24 09:30 04/03/24 09:35 Dextrose IV 04/03/24 11:29 52 mls/hr X1 ONE Administration Lidocaine/Prilocaine 5 gm 04/02/24 15:38 Lidocaine/Prilocaine Hcl 5 Gm Tube TOPICAL PRN PRN port access Protocol Loperamide HCl 2 mg 04/02/24 15:38 Loperamide 2 Mg Capsule PO Q6H PRN loose stool Metoprolol Succinate 100 mg 04/03/24 10:00 04/03/24 09:21 Metoprolol(Xl)Succ 100 Mg Tablet PO 100 mg DAILY TEE Administration Protocol Nutritional Formula (Lactose Free) 118 ml 04/02/24 18:00 04/03/24 07:25 Ensure Compact 118 Ml Liquid PO Not Given 4X/DAY [facility] Ondansetron HCl 4 mg 04/02/24 15:38 04/03/24 05:58 Ondansetron 4 Mg/2 Ml Vial IV 4 mg Q8H PRN PRN Administration NAUSEA/VOMITING Oxycodone HCl 5 mg 04/02/24 15:38 Oxycodone 5 Mg Tablet PO Q6H PRN PRN Pain Score 4-10 Polyethylene Glycol 17 gm 04/02/24 16:00 04/03/24 09:17 Polyethylene Glycol 3350 17 Gm Packet PO Not Given DAILY TEE Prednisone 5 mg 04/02/24 17:00 04/03/24 09:17 Prednisone 5 Mg Tablet PO Not Given BIDCM [facility] Prochlorperazine Edisylate 5 mg 04/03/24 08:36 04/03/24 09:18 Prochlorperazine 10 Mg/2 Ml Vial IV 5 mg Q4H PRN PRN Administration NAUSEA/VOMITING Sodium Chloride 10 - 40 ml 04/02/24 15:47 04/03/24 09:17 0.9 % Nacl (Sterile) Posiflush 10 Ml IV 20 ml UD PRN Administration Port access or dressing change Sodium Chloride 10 - 40 ml 04/02/24 15:47 0.9% Saline Lock 10 Ml Syringe IV UD PRN Port-a-Cath (VAD) Flush PFSH Medical History Generalized weakness CINV (chemotherapy-induced nausea and vomiting) 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 Anemia Edema of both lower legs Prerenal azotemia Diarrhea due to drug Encounter for education Elevated PSA Torn meniscus Chronic pain COVID History of Clostridium difficile infection Indwelling urethral catheter present Diabetes Gout High cholesterol Non-smoker History of anal cancer Cancer HTN (hypertension) Home Medications ?Medication ?Instructions ?Recorded ?Last Taken ?Type losartan 100 mg tablet 100 mg PO DAILY bp 06/01/13 01/09/24 History metoprolol succinate 100 mg 100 mg PO DAILY bp 06/01/13 01/09/24 History tablet,extended release 24 hr metformin 500 mg tablet,extended 500 mg PO DAILY DIABETES 04/25/20 03/05/23 History release 24 hr rosuvastatin 5 mg tablet 5 mg PO DAILY CHOLESTEROL 12/16/21 03/04/23 History amlodipine 10 mg tablet 10 mg PO DAILY BP 01/07/23 01/09/24 History hydralazine 25 mg tablet 25 mg PO TID 30 days #90 tabs 03/23/23 Unknown Rx abiraterone 500 mg tablet 1,000 mg PO DAILY 12/30/23 Unknown History lidocaine-prilocaine 2.5 %-2.5 % 1 applic topical ONCE PRN port 01/09/24 Unknown Rx topical cream access 30 days #30 grams omeprazole 20 mg capsule,delayed 20 mg PO DAILY #30 caps 01/09/24 Unknown Rx release potassium chloride 20 mEq 40 meq (2 x 20 mEq) PO DAILY 30 03/08/24 Unknown Rx tablet,extended release(part/cryst) days #60 tabs prednisone 5 mg tablet 5 mg PO BID #60 tabs 03/14/24 Unknown Rx loperamide 2 mg capsule (Imodium 2 mg PO Q6H PRN loose stool 03/22/24 Unknown History A-D) ondansetron HCl 8 mg tablet 8 mg PO Q8H #30 tabs 03/28/24 Unknown Rx prochlorperazine maleate 10 mg 10 mg PO Q6H PRN nausea and 03/28/24 Unknown Rx tablet (Compazine) vomiting #30 tabs Allergy/AdvReac Type Severity Reaction Status Date / Time hydromorphone (From Dilaudid) AdvReac Other Verified 04/02/24 15:48 meperidine (From Demerol) AdvReac Nausea/Vom/ Verified 04/02/24 15:48 Diarrhea Family History Father Myocardial infarction Surgical History Hx of colectomy History of total left knee replacement S/P total knee arthroplasty Hx of cystoscopy Hx of left knee surgery Hx of cystoscopy Hx of cystoscopy Hx of cystoscopy (~05/28/20) Hx of cystoscopy (~01/23/20) Hx of dilation of urethra Hx of cystoscopy Hx of cystoscopy Hx of cystoscopy History of removal of Port-a-Cath Hx of colonoscopy Hx of cataract surgery History of back surgery History of cholecystectomy History of appendectomy Social History household members: spouse Smoking Status: Never smoker alcohol intake: never substance use type: does not use Review of Systems (Anesthesia) ROS Narrative System reviewed and no additional complaints, except as documented.
--- OUTSIDE RECORDS SUMMARY | 2024-04-03 10:34 | XMS RPT_ITS | CCD ---
Author Organization [facility] Care Team Providers Care [employer] Operator Name Role Phone Rigo Manrique MD Primary Care Provider 1( [phone] Siddharth Navarro Unavailable PACO EDMONDS Referring Unavailable [...] Melatonin; Translations: [MELATONIN] Drug Allergy 08-08-2013 Rash [facility] (2 sources) Meperidine; Translations: [MEPERIDINE (PF)] Drug Allergy 07-17-2013 Vomiting [facility] Medications Completed/Discontinued Medications Medication Drug Class(es) Dates [...] Basophils (Bld) [#/Vol] 0.07 10*3/uL Normal <0.11 [facility] Comment on above: Order Comment: Speci men Type: BLOOD SPECIMEN Ordering Facility: [facility] Address: [address] [place] [phone] Performed By: #### 5 7021-8 #### [facility] CLIA [id number] [address] [place] [address] [place] Basophils/100 WBC (Bld) 1.1 % Normal [facility] Comment on above: Order Comment: Speci men Type: BLOOD SPECIMEN Ordering Facility: [facility] Address: [address] [address] Performed By: #### 5 7021-8 #### [facility] CLIA [id number] [address] [place] [address] [place] Differential cell count method Nom (Bld) Auto Normal [facility] Comment on above: Order Comment: Speci men Type: BLOOD SPECIMEN Ordering Facility: [facility] Address: [address] [address] Performed By: #### 5 7021-8 #### [facility] CLIA [id number] [address] [place] [address] [place] Eosinophils (Bld) [#/Vol] 0.35 10*3/uL Normal <0.46 [facility] Comment on above: Order Comment: Speci men Type: BLOOD SPECIMEN Ordering Facility: [facility] Address: [address] [address] Performed By: #### 5 7021-8 #### [facility] CLIA [id number] [address] [place] [address] [place] Eosinophils/100 WBC (Bld) 5.6 % Normal [facility] Comment on above: Order Comment: Speci men Type: BLOOD SPECIMEN Ordering Facility: [facility] Address: [address] Performed By: #### 5 7021-8 #### [facility] CLIA [id number] [address] [place] [address] [place] Erythrocyte distribution width (RBC) [Ratio] 15.3 % High 11.5-15.0 [facility] Comment on above: Order Comment: Speci men Type: BLOOD SPECIMEN Ordering Facility: [facility] Address: [address] [address] Performed By: #### 5 7021-8 #### [facility] CLIA [id number] [address] [place] [address] [place] Hematocrit (Bld) [Volume fraction] 36.2 % Low 39.0-51.0 [facility] Comment on above: Order Comment: Speci men Type: BLOOD SPECIMEN Ordering Facility: [facility] Address: [address] [place] [address] Performed By: #### 5 7021-8 #### [facility] [id number] [address] [place] [address] [place] Hemoglobin (Bld) [Mass/Vol] 11.8 g/dL Low 13.0-17.0 [facility] Comment on above: Order Comment: Speci men Type: BLOOD SPECIMEN Ordering Facility: [facility] Address: [address] [place] [address] Performed By: #### 5 7021-8 #### [facility] [id number] [address] [place] [address] [place] Immature granulocytes (Bld) [#/Vol] 0.03 10*3/uL Normal <0.10 [facility] Comment on above: Order Comment: Speci men Type: BLOOD SPECIMEN Ordering Facility: [facility] Address: [address] [place] [address] Performed By: #### 5 7021-8 #### [facility] [id number] [address] [place] [address] [place] Immature granulocytes/100 WBC (Bld) 0.5 % Normal [facility] Comment on above: Order Comment: Speci men Type: BLOOD SPECIMEN Ordering Facility: [facility] Address: [address] [place] [address] Performed By: #### 5 7021-8 #### [facility] [id number] [address] [place] [address] [place] Lymphocytes (Bld) [#/Vol] 1.25 10*3/uL Normal 1.00-4.00 [facility] Comment on above: Order Comment: Speci men Type: BLOOD SPECIMEN Ordering Facility: [facility] Address: [address] [place] [address] Performed By: #### 5 7021-8 #### [facility] CLIA [id number] [address] [place] [address] STATES [facility] Lymphocytes/100 WBC (Bld) 20.0 % Normal [facility] Comment on above: Order Comment: Speci men Type: BLOOD SPECIMEN Ordering Facility: [facility] Address: [address] [place] [address] Performed By: #### 5 7021-8 #### [facility] [id number] [address] [place] [address] [place] MCH (RBC) [Entitic mass] 26.6 pg Normal 26.0-34.0 [facility] Comment on above: Order Comment: Speci men Type: BLOOD SPECIMEN Ordering Facility: [facility] Address: [address] [place] [address] Performed By: #### 5 7021-8 #### [facility] [id number] [address] [place] [address] [place] MCHC (RBC) [Mass/Vol] 32.6 g/dL Normal 30.5-36.0 [facility] Comment on above: Order Comment: Speci men Type: BLOOD SPECIMEN Ordering Facility: [facility] Address: [address] [place], [place] [address] Performed By: #### 5 7021-8 #### [facility] [id number] [address] [place] [address] [place] MCV (RBC) [Entitic vol] 81.5 fL Normal 80.0-100.0 [facility] Comment on above: Order Comment: Speci men Type: BLOOD SPECIMEN Ordering Facility: [facility] Address: [address] Performed By: #### 5 7021-8 #### [facility] CLIA [id number] [address] [place] [address] [place] Monocytes (Bld) [#/Vol] 0.54 10*3/uL Normal <0.87 [facility] Comment on above: Order Comment: Speci men Type: BLOOD SPECIMEN Ordering Facility: [facility] Address: [address] [address] Performed By: #### 5 7021-8 #### [facility] CLIA [id number] [address] [place] [address] [place] Monocytes/100 WBC (Bld) 8.7 % Normal [facility] Comment on above: Order Comment: Speci men Type: BLOOD SPECIMEN Ordering Facility: [facility] Address: [address] [address] Performed By: #### 5 7021-8 #### [facility] CLIA [id number] [address] [place] [address] [place] Neutrophils (Bld) [#/Vol] 4.00 10*3/uL Normal 1.45-7.50 [facility] Comment on above: Order Comment: Speci men Type: BLOOD SPECIMEN Ordering Facility: [facility] Address: [address] Performed By: #### 5 7021-8 #### [facility] CLIA [id number] [address] [place] [address] [place] Neutrophils/100 WBC (Bld) 64.1 % Normal [facility] Comment on above: Order Comment: Speci men Type: BLOOD SPECIMEN Ordering Facility: [facility] Address: [address] Performed By: #### 5 7021-8 #### [facility] CLIA [id number] [address] [place] [address] [place] Nucleated RBC (Bld) [#/Vol] 10*3/uL Normal <0.01 [facility] Comment on above: Order Comment: Speci men Type: BLOOD SPECIMEN Ordering Facility: [facility] Address: [address] [place] [address] Performed By: #### 5 7021-8 #### [facility] CLIA [id number] [address] [place] [address] [place] Nucleated RBC/100 WBC (Bld) [Ratio] 0.0 /[address] [facility] Comment on above: Order Comment: Speci men Type: BLOOD SPECIMEN Ordering Facility: [facility] Address: [address] [place] [address] Performed By: #### 5 7021-8 #### [facility] CLIA [id number] [address] [place] [address] [place] Platelet mean volume (Bld) [Entitic vol] 9.7 fL Normal 9.0-12.7 [facility] Comment on above: Order Comment: Speci men Type: BLOOD SPECIMEN Ordering Facility: [facility] Address: [address] [place] [address] Performed By: #### 5 7021-8 #### [facility] CLIA [id number] [address] [place] [address] [place] Platelets (Bld) [#/Vol] 234 10*3/uL Normal 150-400 [facility] Comment on above: Order Comment: Speci men Type: BLOOD SPECIMEN Ordering Facility: [facility] Address: [address] [place] [address] Performed By: #### 5 7021-8 #### [facility] CLIA [id number] [address] [place] [address] [place] RBC (Bld) [#/Vol] 4.44 10*6/uL Normal 4.20-6.00 [facility] Comment on above: Order Comment: Speci men Type: BLOOD SPECIMEN Ordering Facility: [facility] Address: [address] Performed By: #### 5 7021-8 #### [facility] CLIA [id number] [address] [place] [address] [place] WBC (Bld) [#/Vol] 6.24 10*3/uL Normal 3.70-11.00 [facility] Comment on above: Order Comment: Speci men Type: BLOOD SPECIMEN Ordering Facility: [facility] Address: [address] Performed By: #### 5 7021-8 #### [facility] CLIA [id number] [address] [place] [address] [place] CNOVSPon 05-26-2022 CNOVSP Visit (SP) Office (H EMAWS) VILMA SMITH ([id number]) 1945 M Date Time Provider Department 05/26/22 3:00 PM PACO EDMONDS During your visit today, we recorded the following information about you: Temperature Pulse Blood pressure Weight 97.1 degrees 68/minute 133/70 90.7 kg Paco Edmonds MD 05/27/2022 10:53 AM Signed Hematology and Medical Oncology PATIENT NAME: Vilma Smith. CLINIC NO: [id number]. ATTENDING PHYSICIAN: Paco Edmonds MD. DATE OF [...] Abs Lymph 1.00 - 4.00 k/uL 1.25 Prowers% % 8.7 Abs Prowers <0.87 k/uL 0.54 Eosin% % 5.6 Abs [...] 0.3 Alkali (more content not included)... Normal [facility] metabolic 2000 panelon 05-26-2022 Albumin [Mass/Vol] 4.4 g/dL Normal 3.9-4.9 [facility] Comment on above: Order Comment: Speci men Type: BLOOD SPECIMEN Ordering Facility: [facility] Address: [address] [place] [address] Performed By: #### 2 4323-8 #### [facility] [id number] [address] [place] [address] [place] ALP [Catalytic activity/Vol] 93 U/L Normal 38-113 [facility] Comment on above: Order Comment: Speci men Type: BLOOD SPECIMEN Ordering Facility: [facility] Address: [address] [address] Performed By: #### 2 4323-8 #### [facility] [id number] [address] [place] [address] [place] ALT [Catalytic activity/Vol] 21 U/L Normal 10-54 [facility] Comment on above: Order Comment: Speci men Type: BLOOD SPECIMEN Ordering Facility: [facility] Address: [address] [address] Performed By: #### 2 4323-8 #### [facility] [id number] [address] [place] [address] [place] Anion gap [Moles/Vol] 10 mmol/L Normal 9-18 [facility] Comment on above: Order Comment: Speci men Type: BLOOD SPECIMEN Ordering Facility: [facility] Address: [address] [address] Performed By: #### 2 4323-8 #### [facility] CLIA [id number] [address] [place] [address] [place] AST [Catalytic activity/Vol] 18 U/L Normal 14-40 [facility] Comment on above: Order Comment: Speci men Type: BLOOD SPECIMEN Ordering Facility: [facility] Address: [address] [place] [address] Performed By: #### 2 4323-8 #### [facility] CLIA [id number] [address] [place] [address] [place] Bilirubin [Mass/Vol] 0.3 mg/dL Normal 0.2-1.3 [facility] Comment on above: Order Comment: Speci men Type: BLOOD SPECIMEN Ordering Facility: [facility] Address: [address] [place] [address] Performed By: #### 2 4323-8 #### [facility] CLIA [id number] [address] [place] [address] [place] Calcium [Mass/Vol] 10.0 mg/dL Normal 8.5-10.2 [facility] Comment on above: Order Comment: Speci men Type: BLOOD SPECIMEN Ordering Facility: [facility] Address: [address] [place] [address] Performed By: #### 2 4323-8 #### [facility] CLIA [id number] [address] [place] [address] [place] Chloride [Moles/Vol] 105 mmol/L Normal 97-105 [facility] Comment on above: Order Comment: Speci men Type: BLOOD SPECIMEN Ordering Facility: [facility] Address: [address] [place] [address] Performed By: #### 2 4323-8 #### [facility] CLIA [id number] [address] [place] [address] [place] CO2 [Moles/Vol] 25 mmol/L Normal 22-30 [facility] Comment on above: Order Comment: Speci men Type: BLOOD SPECIMEN Ordering Facility: [facility] Address: [address] [address] Performed By: #### 2 4323-8 #### [facility] [id number] [address] [place] [address] [place] Creatinine [Mass/Vol] 1.52 mg/dL High 0.73-1.22 [facility] Comment on above: Order Comment: Speci men Type: BLOOD SPECIMEN Ordering Facility: [facility] Address: [address] [address] Performed By: #### 2 4323-8 #### [facility] [id number] [address] [place] [address] [place] ESTIMATED GLOMERULAR FILTRATION RATE 46 mL/min/1.73m??? Low >=60 [facility] Comment on above: Order Comment: Mathewi men Type: BLOOD SPECIMEN Ordering Facility: [facility] Address: [address] [place] [address] Result Comment: Veronica mated Glomerular Filtration Rate [...] GFR. Performed By: #### 2 4323-8 #### [facility] [id number] [address] [place] [address] [place] Glucose [Mass/Vol] 158 mg/dL High 74-99 [facility] Comment on above: Order Comment: Mathewi men Type: BLOOD SPECIMEN Ordering Facility: [facility] Address: [address] [place] [address] Result Comment: The [place] [employer] (ADA) provides guidance for cutoff [...] Standards of Medical Care in Diabetes 2016, [place] [employer]. Diabetes Care. 2016.39(Suppl 1). Performed By: #### 2 4323-8 #### [facility] CLIA [id number] [address] [place] [address] [place] Potassium [Moles/Vol] 4.5 mmol/L Normal 3.7-5.1 [facility] Comment on above: Order Comment: Chyna peterson Type: BLOOD SPECIMEN Ordering Facility: [facility] Address: [address] [place] [address] Performed By: #### 2 4323-8 #### [facility] [id number] [address] [place] [address] [place] Protein [Mass/Vol] 7.0 g/dL Normal 6.3-8.0 [facility] Comment on above: Order Comment: Chyna peterson Type: BLOOD SPECIMEN Ordering Facility: [facility] Address: [address] [place] [address] Performed By: #### 2 4323-8 #### [facility] [id number] [address] [place] [address] [place] Sodium [Moles/Vol] 140 mmol/L Normal 136-144 [facility] Comment on above: Order Comment: Chyna peterson Type: BLOOD SPECIMEN Ordering Facility: [facility] Address: [address] [place] [address] Performed By: #### 2 4323-8 #### [facility] [id number] [address] [place] [address] [place] Urea nitrogen [Mass/Vol] 32 mg/dL High 9-24 [facility] Comment on above: Order Comment: Speci men Type: BLOOD SPECIMEN Ordering Facility: [facility] Address: [address] [place] [address] Performed By: #### 2 4323-8 #### [facility] CLIA [id number] [address] [place] [address] [place] Ferritin SerPl-mCncon 2022 Ferritin [Mass/Vol] 51.0 ng/mL Normal 30.3-565.7 [facility] Comment on above: Order Comment: Speci men Type: BLOOD SPECIMEN Ordering Facility: [facility] Address: [place] [address] Performed By: #### 2 276-4, 51379-9 #### [facility] CLIA [id number] [address] [place] [address] [place] Iron and Iron binding capaci ty panelon 05-26-2022 Iron [Mass/Vol] 42 ug/dL Normal 41-186 [facility] Comment on above: Order Comment: Speci men Type: BLOOD SPECIMEN Ordering Facility: [facility] Address: [address] [place] [address] Performed By: #### 2 276-4, 09981-6 #### [facility] CLIA [id number] [address] [place] [address] [place] Iron binding capacity [Mass/Vol] 355 ug/dL Normal 232-386 [facility] Comment on above: Order Comment: Speci men Type: BLOOD SPECIMEN Ordering Facility: [facility] Address: [address] [place] [phone] Performed By: #### 2 276-4, 18146-4 #### [facility] CLIA [id number] [address] [id number] [place] Iron/TIBC [Molar ratio] 11.8 % Low 15.0-57.0 [facility] Comment on above: Order Comment: Speci men Type: BLOOD SPECIMEN Ordering Facility: [facility] Address: [address] [place], [place] [address] Performed By: #### 2 276-4, 32994-7 #### [facility] CLIA [id number] [address] [facility] [address] [facility] CNOVSPon 11-19-2021 CNOVSP Visit (SP) Office (H EMAWS) VILMA SMITH ([id number]) 1945 M Date Time Provider Department 11/19/21 11:10 AM PACO EDMONDS During your visit today, we recorded the following information about you: Temperature Pulse Blood pressure Weight 97 degrees 80/minute 155/76 89.8 kg Height 1.71 m Paco Edmonds MD 11/20/2021 9:00 AM Signed Hematology and Medical Oncology PATIENT NAME: Vilma Smith. CLINIC NO: [id number]. ATTENDING PHYSICIAN: Paco Edmonds MD. DATE OF [...] Abs Lymph 1.00 - 4.00 k/uL 1.17 Prowers% % 9.0 Abs Prowers <0.87 k/uL 0.57 Eosin% % 8.4 Abs Eosin <0.46 k/uL 0. (more content not included)... Normal [facility] CBC W Auto Differential pane l (Bld)on 11-17-2021 Basophils (Bld) [#/Vol] 0.04 10*3/uL Normal <0.11 [facility] Comment on above: Order Comment: Speci men Type: BLOOD SPECIMEN Ordering Facility: [facility] Address: [address] [place] [address] Performed By: #### 5 7021-8 #### [facility] CLIA [id number] [address] [place] [address] [place] Basophils/100 WBC (Bld) 0.6 % Normal [facility] Comment on above: Order Comment: Speci men Type: BLOOD SPECIMEN Ordering Facility: [facility] Address: [address] [place] [address] Performed By: #### 5 7021-8 #### [facility] CLIA [id number] [address] [place] [address] [place] Differential cell count method Nom (Bld) Auto Normal [facility] Comment on above: Order Comment: Speci men Type: BLOOD SPECIMEN Ordering Facility: [facility] Address: [address] [place] [address] Performed By: #### 5 7021-8 #### [facility] CLIA [id number] [address] [place] [address] [place] Eosinophils (Bld) [#/Vol] 0.53 10*3/uL High <0.46 [facility] Comment on above: Order Comment: Speci men Type: BLOOD SPECIMEN Ordering Facility: [facility] Address: [address] [place], [place] [address] Performed By: #### 5 7021-8 #### [facility] CLIA [id number] [address] [place] [address] [place] Eosinophils/100 WBC (Bld) 8.4 % Normal [facility] Comment on above: Order Comment: Speci men Type: BLOOD SPECIMEN Ordering Facility: [facility] Address: [address] [place], [place] [address] Performed By: #### 5 7021-8 #### [facility] CLIA [id number] [address] [place] [address] [place] Erythrocyte distribution width (RBC) [Ratio] 15.6 % High 11.5-15.0 [facility] Comment on above: Order Comment: Speci men Type: BLOOD SPECIMEN Ordering Facility: [facility] Address: [address] [place] [address] Performed By: #### 5 7021-8 #### [facility] CLIA [id number] [address] [place] [address] [place] Hematocrit (Bld) [Volume fraction] 38.4 % Low 39.0-51.0 [facility] Comment on above: Order Comment: Speci men Type: BLOOD SPECIMEN Ordering Facility: [facility] Address: [address] [place] [address] Performed By: #### 5 7021-8 #### [facility] [id number] [address] [place] [address] [place] Hemoglobin (Bld) [Mass/Vol] 12.4 g/dL Low 13.0-17.0 [facility] Comment on above: Order Comment: Speci men Type: BLOOD SPECIMEN Ordering Facility: [facility] Address: [address] [place] [address] Performed By: #### 5 7021-8 #### [facility] [id number] [address] [place] [address] [place] IMMATURE GRAN % 0.6 % Normal [facility] Comment on above: Order Comment: Speci men Type: BLOOD SPECIMEN Ordering Facility: [facility] Address: [address] [place] [address] Performed By: #### 5 7021-8 #### [facility] [id number] [address] [place] [address] [place] IMMATURE GRAN ABS 0.04 k/uL Normal <0.10 [facility] Comment on above: Order Comment: Speci men Type: BLOOD SPECIMEN Ordering Facility: [facility] Address: [address] [place] [address] Performed By: #### 5 7021-8 #### [facility] CLIA [id number] [address] [place] [address] [place] Lymphocytes (Bld) [#/Vol] 1.17 10*3/uL Normal 1.00-4.00 [facility] Comment on above: Order Comment: Speci men Type: BLOOD SPECIMEN Ordering Facility: [facility] Address: [address] [place] [address] Performed By: #### 5 7021-8 #### [facility] CLIA [id number] [address] [place] [address] [place] Lymphocytes/100 WBC (Bld) 18.5 % Normal [facility] Comment on above: Order Comment: Speci men Type: BLOOD SPECIMEN Ordering Facility: [facility] Address: [address] [place] [address] Performed By: #### 5 7021-8 #### [facility] CLIA [id number] [address] [place] [address] [place] MCH (RBC) [Entitic mass] 26.6 pg Normal 26.0-34.0 [facility] Comment on above: Order Comment: Speci men Type: BLOOD SPECIMEN Ordering Facility: [facility] Address: [address] [place], [place] [address] Performed By: #### 5 7021-8 #### [facility] CLIA [id number] [address] [place] [address] [place] MCHC (RBC) [Mass/Vol] 32.3 g/dL Normal 30.5-36.0 [facility] Comment on above: Order Comment: Speci men Type: BLOOD SPECIMEN Ordering Facility: [facility] Address: [address] [place], [place] [address] Performed By: #### 5 7021-8 #### [facility] CLIA [id number] [address] [place] [address] [place] MCV (RBC) [Entitic vol] 82.2 fL Normal 80.0-100.0 [facility] Comment on above: Order Comment: Speci men Type: BLOOD SPECIMEN Ordering Facility: [facility] Address: [address] [place], [place] [address] Performed By: #### 5 7021-8 #### [facility] CLIA [id number] [address] [place] [address] [place] Monocytes (Bld) [#/Vol] 0.57 10*3/uL Normal <0.87 [facility] Comment on above: Order Comment: Speci men Type: BLOOD SPECIMEN Ordering Facility: [facility] Address: [address] [place], [place] [address] Performed By: #### 5 7021-8 #### [facility] CLIA [id number] [address] [place] [address] [place] Monocytes/100 WBC (Bld) 9.0 % Normal [facility] Comment on above: Order Comment: Speci men Type: BLOOD SPECIMEN Ordering Facility: [facility] Address: [address] [place], [place] [address] Performed By: #### 5 7021-8 #### [facility] CLIA [id number] [address] [place] [address] [place] Neutrophils (Bld) [#/Vol] 3.99 10*3/uL Normal 1.45-7.50 [facility] Comment on above: Order Comment: Speci men Type: BLOOD SPECIMEN Ordering Facility: [facility] Address: [address] [place], [place] [address] Performed By: #### 5 7021-8 #### [facility] CLIA [id number] [address] [place] [address] [place] Neutrophils/100 WBC (Bld) 62.9 % Normal [facility] Comment on above: Order Comment: Speci men Type: BLOOD SPECIMEN Ordering Facility: [facility] Address: [address] [place] [address] Performed By: #### 5 7021-8 #### [facility] CLIA [id number] [address] [place] [address] [place] Nucleated RBC (Bld) [#/Vol] 10*3/uL Normal <0.01 [facility] Comment on above: Order Comment: Speci men Type: BLOOD SPECIMEN Ordering Facility: [facility] Address: [address] [place] [address] Performed By: #### 5 7021-8 #### [facility] CLIA [id number] [address] [place] [address] [place] Nucleated RBC/100 WBC (Bld) [Ratio] 0.0 /[address] [facility] Comment on above: Order Comment: Speci men Type: BLOOD SPECIMEN Ordering Facility: [facility] Address: [address] [place] [address] Performed By: #### 5 7021-8 #### [facility] CLIA [id number] [address] [place] [address] [place] Platelet mean volume (Bld) [Entitic vol] 9.6 fL Normal 9.0-12.7 [facility] Comment on above: Order Comment: Speci men Type: BLOOD SPECIMEN Ordering Facility: [facility] Address: [address] [place] [address] Performed By: #### 5 7021-8 #### [facility] CLIA [id number] [address] [place] [address] [place] Platelets (Bld) [#/Vol] 225 10*3/uL Normal 150-400 [facility] Comment on above: Order Comment: Speci men Type: BLOOD SPECIMEN Ordering Facility: [facility] Address: [address] [place] [address] Performed By: #### 5 7021-8 #### [facility] CLIA [id number] [address] [place] [address] [place] RBC (Bld) [#/Vol] 4.67 10*6/uL Normal 4.20-6.00 [facility] Comment on above: Order Comment: Speci men Type: BLOOD SPECIMEN Ordering Facility: [facility] Address: [address] [place] [address] Performed By: #### 5 7021-8 #### [facility] CLIA [id number] [address] [place] [address] [place] WBC (Bld) [#/Vol] 6.34 10*3/uL Normal 3.70-11.00 [facility] Comment on above: Order Comment: Speci men Type: BLOOD SPECIMEN Ordering Facility: [facility] Address: [address] [place] [address] Performed By: #### 5 7021-8 #### [facility] CLIA [id number] [address] [place] [address] [place] CT CHEST WO IVCONon 11-18-19 CT CHEST WO IVCON * * *Final Report* * * DATE OF EXAM: Nov 17 2021 10:45AM [facility] 0541 - CT CHEST WO IVCON / [...] the upper abdomen demonstrates no interval changes. Process Supervisor (topogram) images: No additional findings. IMPRESSION: Stable cluster of solid nodules in the left upper lobe. No new or enlarging nodules identified. Can Operator: ILENE Transcribe Date/Time: Nov 18 2021 4:37P Dictated by : BHASKAR SANDOVAL MD This examination was interpreted and the report reviewed and electronically signed by: BHASKAR SANDOVAL MD on Nov 18 2021 5:00PM EST [id number] Normal [facility] Comprehensive metabolic 2000 panelon 11-17-2021 Albumin [Mass/Vol] 4.3 g/dL Normal 3.9-4.9 [facility] Comment on above: Order Comment: Chyna peterson Type: BLOOD SPECIMEN Ordering Facility: [facility] Address: [address] [place] [address] Performed By: #### 2 4323-8 #### [facility] CLIA [id number] [address] [place] [address] [place] ALP [Catalytic activity/Vol] 84 U/L Normal 38-113 [facility] Comment on above: Order Comment: Chyna peterson Type: BLOOD SPECIMEN Ordering Facility: [facility] Address: [address] [id number] Performed By: #### 2 4323-8 #### [facility] CLIA [id number] [address] [place] [address] [place] ALT [Catalytic activity/Vol] 19 U/L Normal 10-54 [facility] Comment on above: Order Comment: Speci men Type: BLOOD SPECIMEN Ordering Facility: [facility] Address: [address] [place] [address] Performed By: #### 2 4323-8 #### [facility] CLIA [id number] [address] [place] [address] [place] Anion gap [Moles/Vol] 16 mmol/L Normal 9-18 [facility] Comment on above: Order Comment: Speci men Type: BLOOD SPECIMEN Ordering Facility: [facility] Address: [address] [place] [address] Performed By: #### 2 4323-8 #### [facility] CLIA [id number] [address] [place] [address] [place] AST [Catalytic activity/Vol] 16 U/L Normal 14-40 [facility] Comment on above: Order Comment: Speci men Type: BLOOD SPECIMEN Ordering Facility: [facility] Address: [address] [place] [address] Performed By: #### 2 4323-8 #### [facility] CLIA [id number] [address] [place] [address] [place] Bilirubin [Mass/Vol] 0.3 mg/dL Normal 0.2-1.3 [facility] Comment on above: Order Comment: Speci men Type: BLOOD SPECIMEN Ordering Facility: [facility] Address: [address] [place], [place] [address] Performed By: #### 2 4323-8 #### [facility] CLIA [id number] [address] [place] [address] [place] Calcium [Mass/Vol] 9.4 mg/dL Normal 8.5-10.2 [facility] Comment on above: Order Comment: Speci men Type: BLOOD SPECIMEN Ordering Facility: [facility] Address: [address] [place] [address] Performed By: #### 2 4323-8 #### [facility] CLIA [id number] [address] [place] [address] [place] Chloride [Moles/Vol] 107 mmol/L High 97-105 [facility] Comment on above: Order Comment: Speci men Type: BLOOD SPECIMEN Ordering Facility: [facility] Address: [address] [place] [address] Performed By: #### 2 4323-8 #### [facility] CLIA [id number] [address] [place] [address] [place] CO2 [Moles/Vol] 16 mmol/L Low 22-30 [facility] Comment on above: Order Comment: Speci men Type: BLOOD SPECIMEN Ordering Facility: [facility] Address: [address] [place] [address] Performed By: #### 2 4323-8 #### [facility] CLIA [id number] [address] [place] [address] [place] Creatinine [Mass/Vol] 1.46 mg/dL High 0.73-1.22 [facility] Comment on above: Order Comment: Speci men Type: BLOOD SPECIMEN Ordering Facility: [facility] Address: [address] [place], [place] [address] Performed By: #### 2 4323-8 #### [facility] CLIA [id number] [address] [place] [address] [place] ESTIMATED GLOMERULAR FILTRATION RATE 49 mL/min/1.73m??? Low >=60 [facility] Comment on above: Order Comment: Speci men Type: BLOOD SPECIMEN Ordering Facility: [facility] Address: [address] [place], [place] [address] Result Comment: Veronica mated Glomerular Filtration Rate [...] GFR. Performed By: #### 2 4323-8 #### [facility] [id number] [address] [place] [address] [place] Glucose [Mass/Vol] 136 mg/dL High 74-99 [facility] Comment on above: Order Comment: Chyna peterson Type: BLOOD SPECIMEN Ordering Facility: [facility] Address: [address] [place] [address] Result Comment: The [place] [employer] (ADA) provides guidance for cutoff [...] Standards of Medical Care in Diabetes 2016, [place] [employer]. Diabetes Care. 2016.39(Suppl 1). Performed By: #### 2 4323-8 #### [facility] [id number] [address] [place] [address] [place] Potassium [Moles/Vol] 4.8 mmol/L Normal 3.7-5.1 [facility] Comment on above: Order Comment: Chyna peterson Type: BLOOD SPECIMEN Ordering Facility: [facility] Address: [address] [place] [address] Performed By: #### 2 4323-8 #### [facility] CLIA [id number] [address] [place] [address] [place] Protein [Mass/Vol] 7.7 g/dL Normal 6.3-8.0 [facility] Comment on above: Order Comment: Speci men Type: BLOOD SPECIMEN Ordering Facility: [facility] Address: [address] [place] [address] Performed By: #### 2 4323-8 #### [facility] CLIA [id number] [address] [place] [address] [place] Sodium [Moles/Vol] 139 mmol/L Normal 136-144 [facility] Comment on above: Order Comment: Speci men Type: BLOOD SPECIMEN Ordering Facility: [facility] Address: [address] [place] [address] Performed By: #### 2 4323-8 #### [facility] CLIA [id number] [address] [place] [address] [place] Urea nitrogen [Mass/Vol] 34 mg/dL High 9-24 [facility] Comment on above: Order Comment: Speci men Type: BLOOD SPECIMEN Ordering Facility: [facility] Address: [address] [place] [address] Performed By: #### 2 4323-8 #### [facility] CLIA [id number] [address] [place] [address] [place] Ferritin SerPl-mCncon 2021 Ferritin [Mass/Vol] 105.0 ng/mL Normal 30.3-565.7 [facility] Comment on above: Order Comment: Speci men Type: BLOOD SPECIMEN Ordering Facility: [facility] Address: [address] [place] [address] Performed By: #### 5 0190-8, 2276-4 #### [facility] CLIA [id number] [address] [place] [address] [place] [address] [place] Iron and Iron binding capaci ty panelon 11-17-2021 Iron [Mass/Vol] 45 ug/dL Normal 41-186 [facility] Comment on above: Order Comment: Speci men Type: BLOOD SPECIMEN Ordering Facility: [facility] Address: [address] [place] [address] Performed By: #### 5 0190-8, 2276-4 #### [facility] CLIA [id number] [address] [place] [address] [place] Iron binding capacity [Mass/Vol] 326 ug/dL Normal 232-386 [facility] Comment on above: Order Comment: Speci men Type: BLOOD SPECIMEN Ordering Facility: [facility] Address: [address] [place] [address] Performed By: #### 5 0190-8, 2276-4 #### [facility] CLIA [id number] [address] [place] [address] [place] Iron/TIBC [Molar ratio] 13.8 % Low 15.0-57.0 [facility] Comment on above: Order Comment: Speci men Type: BLOOD SPECIMEN Ordering Facility: [facility] Address: [address] [place] [address] Performed By: #### 5 0190-8, 2276-4 #### [facility] CLIA [id number] [address] [place] [address] [place] [facility] Prostate specific Ag [Mass/Vol] 2.04 ng/mL Normal <2.60 [facility] Comment on above: Order Comment: Speci men Type: BLOOD SPECIMEN Ordering Facility: [facility] Address: [address] [place] [address] Result Comment: Tota l PSA test methodology used is the Electrochemiluminescence Immunoassay by [employer]. Total PSA values by differing methodologies cannot be interchanged. Performed By: #### 2 857-1 #### [facility] CLIA [id number] [address] [id number] [place] Encounters Encounter Date Encounter Type Care Provider Facility Start: 05-26-2022 End: 05-26-2022 ambulatory PACO EDMONDS Facility:[facility] Start: 11-19-2021 End: 11-19-2021 ambulatory PACO EDMONDS Facility:[facility] Start: 11-17-2021 End: 11-17-2021 ambulatory PACO EDMONDS Facility:[facility] Start: 11-17-2021 End: 11-17-2021 Subsequent hospital visit by physician Ct [facility] Wstr (I-Stat) Work Phone: Cat Scan Comment on above: Lung nodules [R91.8] Procedures Date Procedure Procedure Detail Performing Clinician Start: 11-17-2021 Ct thorax w/o contra st material Paco Edmonds MD Work Phone: Start: 09-28-[address] assessment [address] (I-Stat) Work Phone: Plan of Treatment Date Care Activity Detail Author Start: 11-17-2024 DIABETES SCREEN DIABETES SCREEN [facility] Start: 01-14-2022 Influenza vaccination INFLUENZA (#1) [facility] Start: 05-16-2021 ADVANCE DIRECTIVE DISCUSSION ADVANCE DIRECTIVE DISCUSSION [facility] Start: 09-28-2018 Adult depression screening assessment DEPRESSION SCREENING [facility] Start: 01-14-2008 PNEUMOCOCCAL: 65+ (1 - PCV) PNEUMOCOCCAL: 65+ (1 - PCV) [facility] Start: 1993 SHINGRIX VACCINE (1 of 2) SHINGRIX VACCINE (1 of 2) [facility] Start: 1962 Urine microalbumin profile DTAP,TDAP,TD (1 - Tdap) [facility] Start: 1961 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 ANETA DISEASE VISIT ANNUAL PCP TEAM CHRONIC DISEASE VISIT [facility] Start: 1961 BP CONTROLLED (<130/80) BP CON TROLLED (<130/80) [facility] Ct thorax w/o contra st material CT CHEST WO IVCON Radiology Routine Lung nodules Malignant neoplasm of prostate (HCC) 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) 11/17/2021 10:45 AM EDT [facility] Work Phone: [facility] Immunizations Immunization Date Immunization Notes Care Provider Fa cility 03-12-2015 influenza, high dose seasonal, preservative-free Ct (I-Stat) Work Phone: [facility] Payers Date Payer Category Payer Private Health Insurance [facility] AARP SUPPLEMENT [id number] 2012-Present [phone] [address] [place] [address] Indemnity [id number] 2012 Unknown [id number] 2007 Medicare MEDICARE MEDICAR E A AND B [id number] 2007-Present [phone] [address] [address] [place] [address] Medicare [id number] 2007 Medicare [id number] Social History Date Type Detail Facility Start: 04-30-2013 Tobacco smoking stat us MNIS Never smoked tobacco [facility] Start: 04-30-2013 Tobacco use and exposure Smoke less tobacco non-user [facility] Start: 05-13-2021 Alcohol intake Current drinke r of alcohol (finding) [facility] Start: 06-17-2016 History SDOH Alcohol Comment rare [facility] Start: 1945 Sex Assigned At Male C [facility] Start: 11-07-2021 End: 11-17-2021 Exposure to SARS-CoV-2 (event) Not sure [facility] Progress note 05-26-2022 Note Date & Type Note Facility 05-26-2022 Note HNO ID: [id number] Author: Paco Edmonds MD Service: ? Author Type: Physician Type: Progress Notes Filed: 05/27/2022 10:53 AM Note Text: Hematology and Medical Oncology PATIENT NAME: Vilma Smith. CLINIC NO: [id number]. ATTENDING PHYSICIAN: Paco Edmonds MD. DATE OF [...] Abs Lymph 1.00 - 4.00 k/uL 1.25 Prowers% % 8.7 Abs Prowers <0.87 k/uL 0.54 Eosin% % 5.6 Abs [...] - 105 mmol (more content not included)... [facility] Progress note 11-19-2021 Note Date & Type Note Facility 11-19-2021 Note HNO ID: [id number] Author: Paco Edmonds MD Service: ? Author Type: Physician Type: Progress Notes Filed: 11/20/2021 9:00 AM Note Text: Hematology and Medical Oncology PATIENT NAME: Vilma Smith. CLINIC NO: [id number]. ATTENDING PHYSICIAN: Paco Edmonds MD. DATE OF [...] Abs Lymph 1.00 - 4.00 k/uL 1.17 Prowers% % 9.0 Abs Prowers <0.87 k/uL 0.57 Eosin% % 8.4 Abs [...] % 13.8 ( (more content not included)... [facility] Progress note 11-17-2021 Note Date & Type Note Facility 11-17-2021 Note HNO ID: [id number] Author: RT Piero(Titus) Service: ? 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 History of Present illness Narrative 11-17-2021 [...] 2021 12:03 PM documented in this encounter [facility] History of Past illness Narrative 07-27-2013 Note [...] of this encounter (statuses as of 11/18/2021) [facility] Evaluation note Note Date & Type Note Facility Evaluation note Diagnosis Lung nodules Other nonspecific abnormal finding of lung field Malignant neoplasm of prostate (HCC) Malignant neoplasm of prostate 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) documented in this encounter [facility] Reason for Referral Specialty Diagnoses / Procedures Referred By Contac t Referred To Contact CT IMAGING Diagnoses Lung nodules Malignant neoplasm of prostate (HCC) 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) Procedures CT CHEST WO [facility] CAT SCAN OF CHEST Paco Edmonds MD [address] [place] [address] Ct Imaging Referral ID Status Reason Start Date Expiration Date V isits Requested Visits Authorized [id number] Closed Auto-Generate d Referral 11/11/2021 06/12/2022 1 1 Advance Directives No Advanced Directives Records FoundDocuments on File Type Date Recorded 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 Advance Directive(s) 06/21/2017 9:26 AM [...] or prosecute any alcohol or drug abuse patient.[facility] Reason for Visit (unrecogniz ed section and content) Reason Comments Radiology CT Specialty Diagnoses / Procedures Referred By Contac t Referred To Contact CT IMAGING Diagnoses Lung nodules Malignant neoplasm of prostate (HCC) 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) Procedures CT CHEST WO IVCON CAT SCAN OF CHEST Paco Edmonds MD [address] [place] [address] Ct Imaging Referral ID Status Reason Start Date Expiration Date V isits Requested Visits Authorized [id number] Closed Auto-Generate d Referral 11/11/2021 06/12/2022 1 1 Care Teams (unrecognized sec tion and content) 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 FOR RECORDS PERTAINING TO PATIENTS WHO [...] BE BASED ON THE PRIMARY CLINICAL RECORDS. [employer] [facility]. provides no warranty or guarantee of the accuracy or completeness of information in this document.
--- OUTSIDE RECORDS SUMMARY | 2024-04-03 10:36 | XMS RPT_ITS | CCD ---
Author Organization [facility] Care Team Providers Care Assistant Clinical Nurse Manager Name Role Phone Rigo Manrique MD Primary [...] Melatonin; Translations: [MELATONIN] Drug Allergy 08-08-[address] [facility] (2 sources) Meperidine; Translations: [MEPERIDINE (PF)] Drug Allergy 07-17-[address] [facility] Medications Completed/Discontinued Medications Medication Drug [...] Basophils (Bld) [#/Vol] 0.07 10*3/uL Normal <0.11 [facility] Comment on above: Order Comment: Speci men Type: BLOOD SPECIMEN Ordering Facility: [facility] Address: [address] [place] [address] Performed By: #### 5 7021-8 #### [facility] CLIA [id number] [address] [place] [address] [place] Basophils/100 WBC (Bld) 1.1 % Normal [facility] Comment on above: Order Comment: Speci men Type: BLOOD SPECIMEN Ordering Facility: [facility] Address: [address] [address] Performed By: #### 5 7021-8 #### [facility] CLIA [id number] [address] [place] [address] [place] Differential cell count method Nom (Bld) Auto Normal [facility] Comment on above: Order Comment: Speci men Type: BLOOD SPECIMEN Ordering Facility: [facility] Address: [address] [address] Performed By: #### 5 7021-8 #### [facility] CLIA [id number] [address] [place] [address] [place] Eosinophils (Bld) [#/Vol] 0.35 10*3/uL Normal <0.46 [facility] Comment on above: Order Comment: Speci men Type: BLOOD SPECIMEN Ordering Facility: [facility] Address: [address] [address] Performed By: #### 5 7021-8 #### [facility] CLIA [id number] [address] [place] [address] [place] Eosinophils/100 WBC (Bld) 5.6 % Normal [facility] Comment on above: Order Comment: Speci men Type: BLOOD SPECIMEN Ordering Facility: [facility] Address: [address] Performed By: #### 5 7021-8 #### [facility] CLIA [id number] [address] [place] [address] [place] Erythrocyte distribution width (RBC) [Ratio] 15.3 % High 11.5-15.0 [facility] Comment on above: Order Comment: Speci men Type: BLOOD SPECIMEN Ordering Facility: [facility] Address: [address] [address] Performed By: #### 5 7021-8 #### [facility] CLIA [id number] [address] [place] [address] [place] Hematocrit (Bld) [Volume fraction] 36.2 % Low 39.0-51.0 [facility] Comment on above: Order Comment: Speci men Type: BLOOD SPECIMEN Ordering Facility: [facility] Address: [address] [place] [address] Performed By: #### 5 7021-8 #### [facility] [id number] [address] [place] [address] [place] Hemoglobin (Bld) [Mass/Vol] 11.8 g/dL Low 13.0-17.0 [facility] Comment on above: Order Comment: Speci men Type: BLOOD SPECIMEN Ordering Facility: [facility] Address: [address] [place] [address] Performed By: #### 5 7021-8 #### [facility] [id number] [address] [place] [address] [place] Immature granulocytes (Bld) [#/Vol] 0.03 10*3/uL Normal <0.10 [facility] Comment on above: Order Comment: Speci men Type: BLOOD SPECIMEN Ordering Facility: [facility] Address: [address] [place] [address] Performed By: #### 5 7021-8 #### [facility] [id number] [address] [place] [address] [place] Immature granulocytes/100 WBC (Bld) 0.5 % Normal [facility] Comment on above: Order Comment: Speci men Type: BLOOD SPECIMEN Ordering Facility: [facility] Address: [address] [place] [address] Performed By: #### 5 7021-8 #### [facility] [id number] [address] [place] [address] [place] Lymphocytes (Bld) [#/Vol] 1.25 10*3/uL Normal 1.00-4.00 [facility] Comment on above: Order Comment: Speci men Type: BLOOD SPECIMEN Ordering Facility: [facility] Address: [address] [place] [address] Performed By: #### 5 7021-8 #### [facility] CLIA [id number] [address] [place] [address] [facility] Lymphocytes/100 WBC (Bld) 20.0 % Normal [facility] Comment on above: Order Comment: Speci men Type: BLOOD SPECIMEN Ordering Facility: [facility] Address: [address] [place] [address] Performed By: #### 5 7021-8 #### [facility] [id number] [address] [place] [address] [place] MCH (RBC) [Entitic mass] 26.6 pg Normal 26.0-34.0 [facility] Comment on above: Order Comment: Speci men Type: BLOOD SPECIMEN Ordering Facility: [facility] Address: [address] [place] [address] Performed By: #### 5 7021-8 #### [facility] [id number] [address] [place] [address] [place] MCHC (RBC) [Mass/Vol] 32.6 g/dL Normal 30.5-36.0 [facility] Comment on above: Order Comment: Speci men Type: BLOOD SPECIMEN Ordering Facility: [facility] Address: [address] [place], [place] [address] Performed By: #### 5 7021-8 #### [facility] [id number] [address] [place] [address] [place] MCV (RBC) [Entitic vol] 81.5 fL Normal 80.0-100.0 [facility] Comment on above: Order Comment: Speci men Type: BLOOD SPECIMEN Ordering Facility: [facility] Address: [address] Performed By: #### 5 7021-8 #### [facility] CLIA [id number] [address] [place] [address] [place] Monocytes (Bld) [#/Vol] 0.54 10*3/uL Normal <0.87 [facility] Comment on above: Order Comment: Speci men Type: BLOOD SPECIMEN Ordering Facility: [facility] Address: [address] [address] Performed By: #### 5 7021-8 #### [facility] CLIA [id number] [address] [place] [address] [place] Monocytes/100 WBC (Bld) 8.7 % Normal [facility] Comment on above: Order Comment: Speci men Type: BLOOD SPECIMEN Ordering Facility: [facility] Address: [address] [address] Performed By: #### 5 7021-8 #### [facility] CLIA [id number] [address] [place] [address] [place] Neutrophils (Bld) [#/Vol] 4.00 10*3/uL Normal 1.45-7.50 [facility] Comment on above: Order Comment: Speci men Type: BLOOD SPECIMEN Ordering Facility: [facility] Address: [address] Performed By: #### 5 7021-8 #### [facility] CLIA [id number] [address] [place] [address] [place] Neutrophils/100 WBC (Bld) 64.1 % Normal [facility] Comment on above: Order Comment: Speci men Type: BLOOD SPECIMEN Ordering Facility: [facility] Address: [address] Performed By: #### 5 7021-8 #### [facility] CLIA [id number] [address] [place] [address] [place] Nucleated RBC (Bld) [#/Vol] 10*3/uL Normal <0.01 [facility] Comment on above: Order Comment: Speci men Type: BLOOD SPECIMEN Ordering Facility: [facility] Address: [address] [place] [address] Performed By: #### 5 7021-8 #### [facility] CLIA [id number] [address] [place] [address] [place] Nucleated RBC/100 WBC (Bld) [Ratio] 0.0 /100 WBC Normal [facility] Comment on above: Order Comment: Speci men Type: BLOOD SPECIMEN Ordering Facility: [facility] Address: [address] [place] [address] Performed By: #### 5 7021-8 #### [facility] CLIA [id number] [address] [place] [address] [place] Platelet mean volume (Bld) [Entitic vol] 9.7 fL Normal 9.0-12.7 [facility] Comment on above: Order Comment: Speci men Type: BLOOD SPECIMEN Ordering Facility: [facility] Address: [address] [place] [address] Performed By: #### 5 7021-8 #### [facility] CLIA [id number] [address] [place] [address] [place] Platelets (Bld) [#/Vol] 234 10*3/uL Normal 150-400 [facility] Comment on above: Order Comment: Speci men Type: BLOOD SPECIMEN Ordering Facility: [facility] Address: [address] [place] [address] Performed By: #### 5 7021-8 #### [facility] CLIA [id number] [address] [place] [address] [place] RBC (Bld) [#/Vol] 4.44 10*6/uL Normal 4.20-6.00 [facility] Comment on above: Order Comment: Speci men Type: BLOOD SPECIMEN Ordering Facility: [facility] Address: [address] Performed By: #### 5 7021-8 #### [facility] CLIA [id number] [address] [place] [address] [place] WBC (Bld) [#/Vol] 6.24 10*3/uL Normal 3.70-11.00 [facility] Comment on above: Order Comment: Speci men Type: BLOOD SPECIMEN Ordering Facility: [facility] Address: [address] Performed By: #### 5 7021-8 #### [facility] CLIA [id number] [address] [place] [address] [place] CNOVSPon 05-26-2022 CNOVSP Visit (SP) Office (H EMAWS) VILMA SMITH ([id number]) 1945 M Date Time Provider Department 05/26/22 3:00 PM PACO EDMONDS During your visit today, we recorded the following information about you: Temperature Pulse Blood pressure Weight 97.1 degrees 68/minute 133/70 90.7 kg Paco Edmonds MD 05/27/2022 10:53 AM Signed Hematology and Medical Oncology PATIENT NAME: Vilma Smith. CLINIC NO: [id number]. ATTENDING PHYSICIAN: Paco Edmonds MD. DATE OF [...] Abs Lymph 1.00 - 4.00 k/uL 1.25 Crockett% % 8.7 Abs Crockett <0.87 k/uL 0.54 Eosin% % 5.6 Abs [...] 0.3 Alkali (more content not included)... Normal [facility] metabolic 2000 panelon 05-26-2022 Albumin [Mass/Vol] 4.4 g/dL Normal 3.9-4.9 [facility] Comment on above: Order Comment: Speci men Type: BLOOD SPECIMEN Ordering Facility: [facility] Address: [address] [place] [address] Performed By: #### 2 4323-8 #### [facility] [id number] [address] [place] [address] [place] ALP [Catalytic activity/Vol] 93 U/L Normal 38-113 [facility] Comment on above: Order Comment: Speci men Type: BLOOD SPECIMEN Ordering Facility: [facility] Address: [address] [address] Performed By: #### 2 4323-8 #### [facility] [id number] [address] [place] [address] [place] ALT [Catalytic activity/Vol] 21 U/L Normal 10-54 [facility] Comment on above: Order Comment: Speci men Type: BLOOD SPECIMEN Ordering Facility: [facility] Address: [address] [address] Performed By: #### 2 4323-8 #### [facility] [id number] [address] [place] [address] [place] Anion gap [Moles/Vol] 10 mmol/L Normal 9-18 [facility] Comment on above: Order Comment: Speci men Type: BLOOD SPECIMEN Ordering Facility: [facility] Address: [address] [address] Performed By: #### 2 4323-8 #### [facility] CLIA [id number] [address] [place] [address] [place] AST [Catalytic activity/Vol] 18 U/L Normal 14-40 [facility] Comment on above: Order Comment: Speci men Type: BLOOD SPECIMEN Ordering Facility: [facility] Address: [address] [place] [address] Performed By: #### 2 4323-8 #### [facility] CLIA [id number] [address] [place] [address] [place] Bilirubin [Mass/Vol] 0.3 mg/dL Normal 0.2-1.3 [facility] Comment on above: Order Comment: Speci men Type: BLOOD SPECIMEN Ordering Facility: [facility] Address: [address] [place] [address] Performed By: #### 2 4323-8 #### [facility] CLIA [id number] [address] [place] [address] [place] Calcium [Mass/Vol] 10.0 mg/dL Normal 8.5-10.2 [facility] Comment on above: Order Comment: Speci men Type: BLOOD SPECIMEN Ordering Facility: [facility] Address: [address] [place] [address] Performed By: #### 2 4323-8 #### [facility] CLIA [id number] [address] [place] [address] [place] Chloride [Moles/Vol] 105 mmol/L Normal 97-105 [facility] Comment on above: Order Comment: Speci men Type: BLOOD SPECIMEN Ordering Facility: [facility] Address: [address] [place] [address] Performed By: #### 2 4323-8 #### [facility] CLIA [id number] [address] [place] [address] [place] CO2 [Moles/Vol] 25 mmol/L Normal 22-30 [facility] Comment on above: Order Comment: Speci men Type: BLOOD SPECIMEN Ordering Facility: [facility] Address: [address] [address] Performed By: #### 2 4323-8 #### [facility] [id number] [address] [place] [address] [place] Creatinine [Mass/Vol] 1.52 mg/dL High 0.73-1.22 [facility] Comment on above: Order Comment: Speci men Type: BLOOD SPECIMEN Ordering Facility: [facility] Address: [address] [address] Performed By: #### 2 4323-8 #### [facility] [id number] [address] [place] [address] [place] ESTIMATED GLOMERULAR FILTRATION RATE 46 mL/min/1.73m??? Low >=60 [facility] Comment on above: Order Comment: Mathewi men Type: BLOOD SPECIMEN Ordering Facility: [facility] Address: [address] [place] [address] Result Comment: Veronica mated Glomerular Filtration Rate [...] GFR. Performed By: #### 2 4323-8 #### [facility] [id number] [address] [place] [address] [place] Glucose [Mass/Vol] 158 mg/dL High 74-99 [facility] Comment on above: Order Comment: Mathewi men Type: BLOOD SPECIMEN Ordering Facility: [facility] Address: [address] [place] [address] Result Comment: The [place] [employer] (ADA) provides guidance for cutoff [...] Standards of Medical Care in Diabetes 2016, [place] [employer]. Diabetes Care. 2016.39(Suppl 1). Performed By: #### 2 4323-8 #### [facility] CLIA [id number] [address] [place] [address] [place] Potassium [Moles/Vol] 4.5 mmol/L Normal 3.7-5.1 [facility] Comment on above: Order Comment: Chyna peterson Type: BLOOD SPECIMEN Ordering Facility: [facility] Address: [address] [place] [address] Performed By: #### 2 4323-8 #### [facility] [id number] [address] [place] [address] [place] Protein [Mass/Vol] 7.0 g/dL Normal 6.3-8.0 [facility] Comment on above: Order Comment: Chyna peterson Type: BLOOD SPECIMEN Ordering Facility: [facility] Address: [address] [place] [address] Performed By: #### 2 4323-8 #### [facility] [id number] [address] [place] [address] [place] Sodium [Moles/Vol] 140 mmol/L Normal 136-144 [facility] Comment on above: Order Comment: Chyna peterson Type: BLOOD SPECIMEN Ordering Facility: [facility] Address: [address] [place] [address] Performed By: #### 2 4323-8 #### [facility] [id number] [address] [place] [address] [place] Urea nitrogen [Mass/Vol] 32 mg/dL High 9-24 [facility] Comment on above: Order Comment: Speci men Type: BLOOD SPECIMEN Ordering Facility: [facility] Address: [address] [place] [address] Performed By: #### 2 4323-8 #### [facility] CLIA [id number] [address] [place] [address] [place] Ferritin SerPl-mCncon 2022 Ferritin [Mass/Vol] 51.0 ng/mL Normal 30.3-565.7 [facility] Comment on above: Order Comment: Speci men Type: BLOOD SPECIMEN Ordering Facility: [facility] Address: [place] [address] Performed By: #### 2 276-4, 79725-6 #### [facility] CLIA [id number] [address] [place] [address] [place] Iron and Iron binding capaci ty panelon 05-26-2022 Iron [Mass/Vol] 42 ug/dL Normal 41-186 [facility] Comment on above: Order Comment: Speci men Type: BLOOD SPECIMEN Ordering Facility: [facility] Address: [address] [place] [address] Performed By: #### 2 276-4, 97841-6 #### [facility] CLIA [id number] [address] [place] [address] [place] Iron binding capacity [Mass/Vol] 355 ug/dL Normal 232-386 [facility] Comment on above: Order Comment: Speci men Type: BLOOD SPECIMEN Ordering Facility: [facility] Address: [address] [place] [address] Performed By: #### 2 276-4, 06812-9 #### [facility] CLIA [id number] [address] [id number] [place] Iron/TIBC [Molar ratio] 11.8 % Low 15.0-57.0 [facility] Comment on above: Order Comment: Speci men Type: BLOOD SPECIMEN Ordering Facility: [facility] Address: [address] [place], [place] [address] Performed By: #### 2 276-4, 72967-1 #### [facility] CLIA [id number] [address] [facility] [address] [facility] CNOVSPon 11-19-2021 CNOVSP Visit (SP) Office (H EMAWS) VILMA SMITH ([id number]) 1945 M Date Time Provider Department 11/19/21 11:10 AM PACO EDMONDS During your visit today, we recorded the following information about you: Temperature Pulse Blood pressure Weight 97 degrees 80/minute 155/76 89.8 kg Height 1.71 m Paco Edmonds MD 11/20/2021 9:00 AM Signed Hematology and Medical Oncology PATIENT NAME: Vilma Smith. CLINIC NO: [id number]. ATTENDING PHYSICIAN: Paco Edmonds MD. DATE OF [...] Abs Lymph 1.00 - 4.00 k/uL 1.17 Crockett% % 9.0 Abs Crockett <0.87 k/uL 0.57 Eosin% % 8.4 Abs Eosin <0.46 k/uL 0. (more content not included)... Normal [facility] CBC W Auto Differential pane l (Bld)on 11-17-2021 Basophils (Bld) [#/Vol] 0.04 10*3/uL Normal <0.11 [facility] Comment on above: Order Comment: Speci men Type: BLOOD SPECIMEN Ordering Facility: [facility] Address: [address] [place] [address] Performed By: #### 5 7021-8 #### [facility] CL[facility] [id number] [address] [place] [address] [place] Basophils/100 WBC (Bld) 0.6 % Normal [facility] Comment on above: Order Comment: Speci men Type: BLOOD SPECIMEN Ordering Facility: [facility] Address: [address] [place] [address] Performed By: #### 5 7021-8 #### [facility] CLIA [id number] [address] [place] [address] [place] Differential cell count method Nom (Bld) Auto Normal [facility] Comment on above: Order Comment: Speci men Type: BLOOD SPECIMEN Ordering Facility: [facility] Address: [address] [place] [address] Performed By: #### 5 7021-8 #### [facility] CLIA [id number] [address] [place] [address] [place] Eosinophils (Bld) [#/Vol] 0.53 10*3/uL High <0.46 [facility] Comment on above: Order Comment: Speci men Type: BLOOD SPECIMEN Ordering Facility: [facility] Address: [address] [place], [place] [address] Performed By: #### 5 7021-8 #### [facility] CLIA [id number] [address] [place] [address] [place] Eosinophils/100 WBC (Bld) 8.4 % Normal [facility] Comment on above: Order Comment: Speci men Type: BLOOD SPECIMEN Ordering Facility: [facility] Address: [address] [place], [place] [address] Performed By: #### 5 7021-8 #### [facility] CLIA [id number] [address] [place] [address] [place] Erythrocyte distribution width (RBC) [Ratio] 15.6 % High 11.5-15.0 [facility] Comment on above: Order Comment: Speci men Type: BLOOD SPECIMEN Ordering Facility: [facility] Address: [address] [place] [address] Performed By: #### 5 7021-8 #### [facility] CLIA [id number] [address] [place] [address] [place] Hematocrit (Bld) [Volume fraction] 38.4 % Low 39.0-51.0 [facility] Comment on above: Order Comment: Speci men Type: BLOOD SPECIMEN Ordering Facility: [facility] Address: [address] [place] [address] Performed By: #### 5 7021-8 #### [facility] [id number] [address] [place] [address] [place] Hemoglobin (Bld) [Mass/Vol] 12.4 g/dL Low 13.0-17.0 [facility] Comment on above: Order Comment: Speci men Type: BLOOD SPECIMEN Ordering Facility: [facility] Address: [address] [place] [address] Performed By: #### 5 7021-8 #### [facility] [id number] [address] [place] [address] [place] IMMATURE GRAN % 0.6 % Normal [facility] Comment on above: Order Comment: Speci men Type: BLOOD SPECIMEN Ordering Facility: [facility] Address: [address] [place] [address] Performed By: #### 5 7021-8 #### [facility] [id number] [address] [place] [address] [place] IMMATURE GRAN ABS 0.04 k/uL Normal <0.10 [facility] Comment on above: Order Comment: Speci men Type: BLOOD SPECIMEN Ordering Facility: [facility] Address: [address] [place] [address] Performed By: #### 5 7021-8 #### [facility] CLIA [id number] [address] [place] [address] [place] Lymphocytes (Bld) [#/Vol] 1.17 10*3/uL Normal 1.00-4.00 [facility] Comment on above: Order Comment: Speci men Type: BLOOD SPECIMEN Ordering Facility: [facility] Address: [address] [place] [address] Performed By: #### 5 7021-8 #### [facility] CLIA [id number] [address] [place] [address] [place] Lymphocytes/100 WBC (Bld) 18.5 % Normal [facility] Comment on above: Order Comment: Speci men Type: BLOOD SPECIMEN Ordering Facility: [facility] Address: [address] [place] [address] Performed By: #### 5 7021-8 #### [facility] CLIA [id number] [address] [place] [address] [place] MCH (RBC) [Entitic mass] 26.6 pg Normal 26.0-34.0 [facility] Comment on above: Order Comment: Speci men Type: BLOOD SPECIMEN Ordering Facility: [facility] Address: [address] [place], [place] [id number] Performed By: #### 5 7021-8 #### [facility] CLIA [id number] [address] [place] [address] [place] MCHC (RBC) [Mass/Vol] 32.3 g/dL Normal 30.5-36.0 [facility] Comment on above: Order Comment: Speci men Type: BLOOD SPECIMEN Ordering Facility: [facility] Address: [address] [place], [place] [address] Performed By: #### 5 7021-8 #### [facility] CLIA [id number] [address] [place] [address] [place] MCV (RBC) [Entitic vol] 82.2 fL Normal 80.0-100.0 [facility] Comment on above: Order Comment: Speci men Type: BLOOD SPECIMEN Ordering Facility: [facility] Address: [address] [place], [place] [address] Performed By: #### 5 7021-8 #### [facility] CLIA [id number] [address] [place] [address] [place] Monocytes (Bld) [#/Vol] 0.57 10*3/uL Normal <0.87 [facility] Comment on above: Order Comment: Speci men Type: BLOOD SPECIMEN Ordering Facility: [facility] Address: [address] [place], [place] [address] Performed By: #### 5 7021-8 #### [facility] CLIA [id number] [address] [place] [address] [place] Monocytes/100 WBC (Bld) 9.0 % Normal [facility] Comment on above: Order Comment: Speci men Type: BLOOD SPECIMEN Ordering Facility: [facility] Address: [address] [place], [place] [address] Performed By: #### 5 7021-8 #### [facility] CLIA [id number] [address] [place] [address] [place] Neutrophils (Bld) [#/Vol] 3.99 10*3/uL Normal 1.45-7.50 [facility] Comment on above: Order Comment: Speci men Type: BLOOD SPECIMEN Ordering Facility: [facility] Address: [address] [place], [place] [address] Performed By: #### 5 7021-8 #### [facility] CLIA [id number] [address] [place] [address] [place] Neutrophils/100 WBC (Bld) 62.9 % Normal [facility] Comment on above: Order Comment: Speci men Type: BLOOD SPECIMEN Ordering Facility: [facility] Address: [address] [place] [address] Performed By: #### 5 7021-8 #### [facility] CLIA [id number] [address] [place] [address] [place] Nucleated RBC (Bld) [#/Vol] 10*3/uL Normal <0.01 [facility] Comment on above: Order Comment: Speci men Type: BLOOD SPECIMEN Ordering Facility: [facility] Address: [address] [place] [address] Performed By: #### 5 7021-8 #### [facility] CLIA [id number] [address] [place] [address] [place] Nucleated RBC/100 WBC (Bld) [Ratio] 0.0 /100 WBC Normal [facility] Comment on above: Order Comment: Speci men Type: BLOOD SPECIMEN Ordering Facility: [facility] Address: [address] [place] [address] Performed By: #### 5 7021-8 #### [facility] CLIA [id number] [address] [place] [address] [place] Platelet mean volume (Bld) [Entitic vol] 9.6 fL Normal 9.0-12.7 [facility] Comment on above: Order Comment: Speci men Type: BLOOD SPECIMEN Ordering Facility: [facility] Address: [address] [place] [address] Performed By: #### 5 7021-8 #### [facility] CLIA [id number] [address] [place] [address] [place] Platelets (Bld) [#/Vol] 225 10*3/uL Normal 150-400 [facility] Comment on above: Order Comment: Speci men Type: BLOOD SPECIMEN Ordering Facility: [facility] Address: [address] [place] [address] Performed By: #### 5 7021-8 #### [facility] CLIA [id number] [address] [place] [address] [place] RBC (Bld) [#/Vol] 4.67 10*6/uL Normal 4.20-6.00 [facility] Comment on above: Order Comment: Speci men Type: BLOOD SPECIMEN Ordering Facility: [facility] Address: [address] [place] [address] Performed By: #### 5 7021-8 #### [facility] CLIA [id number] [address] [place] [address] [place] WBC (Bld) [#/Vol] 6.34 10*3/uL Normal 3.70-11.00 [facility] Comment on above: Order Comment: Speci men Type: BLOOD SPECIMEN Ordering Facility: [facility] Address: [address] [place] [address] Performed By: #### 5 7021-8 #### [facility] CLIA [id number] [address] [place] [address] [place] CT CHEST WO IVCONon 11-18-19 CT CHEST WO IVCON * * *Final Report* * * DATE OF EXAM: Nov 17 2021 10:45AM [facility] 0541 - CT CHEST WO IVCON / [...] the upper abdomen demonstrates no interval changes. Distributor Of Directories (topogram) images: No additional findings. IMPRESSION: Stable cluster of solid nodules in the left upper lobe. No new or enlarging nodules identified. Cooling System Operator: ILENE Transcribe Date/Time: Nov 18 2021 4:37P Dictated by : BHASKAR SANDOVAL MD This examination was interpreted and the report reviewed and electronically signed by: BHASKAR SANDOVAL MD on Nov 18 2021 5:00PM EST [id number] Normal [facility] Comprehensive metabolic 2000 panelon 11-17-2021 Albumin [Mass/Vol] 4.3 g/dL Normal 3.9-4.9 [facility] Comment on above: Order Comment: Chyna peterson Type: BLOOD SPECIMEN Ordering Facility: [facility] Address: [address] [place] [address] Performed By: #### 2 4323-8 #### [facility] CLIA [id number] [address] [place] [address] [place] ALP [Catalytic activity/Vol] 84 U/L Normal 38-113 [facility] Comment on above: Order Comment: Chyna peterson Type: BLOOD SPECIMEN Ordering Facility: [facility] Address: [address] [id number] Performed By: #### 2 4323-8 #### [facility] CLIA [id number] [address] [place] [address] [place] ALT [Catalytic activity/Vol] 19 U/L Normal 10-54 [facility] Comment on above: Order Comment: Speci men Type: BLOOD SPECIMEN Ordering Facility: [facility] Address: [address] [place] [address] Performed By: #### 2 4323-8 #### [facility] CLIA [id number] [address] [place] [address] [place] Anion gap [Moles/Vol] 16 mmol/L Normal 9-18 [facility] Comment on above: Order Comment: Speci men Type: BLOOD SPECIMEN Ordering Facility: [facility] Address: [address] [place] [address] Performed By: #### 2 4323-8 #### [facility] CLIA [id number] [address] [place] [address] [place] AST [Catalytic activity/Vol] 16 U/L Normal 14-40 [facility] Comment on above: Order Comment: Speci men Type: BLOOD SPECIMEN Ordering Facility: [facility] Address: [address] [place] [address] Performed By: #### 2 4323-8 #### [facility] CLIA [id number] [address] [place] [address] [place] Bilirubin [Mass/Vol] 0.3 mg/dL Normal 0.2-1.3 [facility] Comment on above: Order Comment: Speci men Type: BLOOD SPECIMEN Ordering Facility: [facility] Address: [address] [place], [place] [address] Performed By: #### 2 4323-8 #### [facility] CLIA [id number] [address] [place] [address] [place] Calcium [Mass/Vol] 9.4 mg/dL Normal 8.5-10.2 [facility] Comment on above: Order Comment: Speci men Type: BLOOD SPECIMEN Ordering Facility: [facility] Address: [address] [place] [address] Performed By: #### 2 4323-8 #### [facility] CLIA [id number] [address] [place] [address] [place] Chloride [Moles/Vol] 107 mmol/L High 97-105 [facility] Comment on above: Order Comment: Speci men Type: BLOOD SPECIMEN Ordering Facility: [facility] Address: [address] [place] [address] Performed By: #### 2 4323-8 #### [facility] CLIA [id number] [address] [place] [address] [place] CO2 [Moles/Vol] 16 mmol/L Low 22-30 [facility] Comment on above: Order Comment: Speci men Type: BLOOD SPECIMEN Ordering Facility: [facility] Address: [address] [place] [address] Performed By: #### 2 4323-8 #### [facility] CLIA [id number] [address] [place] [address] [place] Creatinine [Mass/Vol] 1.46 mg/dL High 0.73-1.22 [facility] Comment on above: Order Comment: Speci men Type: BLOOD SPECIMEN Ordering Facility: [facility] Address: [address] [place], [place] [address] Performed By: #### 2 4323-8 #### [facility] CLIA [id number] [address] [place] [address] [place] ESTIMATED GLOMERULAR FILTRATION RATE 49 mL/min/1.73m??? Low >=60 [facility] Comment on above: Order Comment: Speci men Type: BLOOD SPECIMEN Ordering Facility: [facility] Address: [address] [place], [place] [address] Result Comment: Veronica mated Glomerular Filtration Rate [...] GFR. Performed By: #### 2 4323-8 #### [id number] [address] [place] [address] [place] Glucose [Mass/Vol] 136 mg/dL High 74-99 [facility] Comment on above: Order Comment: Chyna peterson Type: BLOOD SPECIMEN Ordering Facility: [facility] Address: [address] [place] [address] Result Comment: The [place] [employer] (ADA) provides guidance for cutoff [...] Standards of Medical Care in Diabetes 2016, [place] [employer]. Diabetes Care. 2016.39(Suppl 1). Performed By: #### 2 4323-8 #### [facility] [id number] [address] [place] [address] [place] Potassium [Moles/Vol] 4.8 mmol/L Normal 3.7-5.1 [facility] Comment on above: Order Comment: Chyna peterson Type: BLOOD SPECIMEN Ordering Facility: [facility] Address: [address] [place] [address] Performed By: #### 2 4323-8 #### [facility] CLIA [id number] [address] [place] [address] [place] Protein [Mass/Vol] 7.7 g/dL Normal 6.3-8.0 [facility] Comment on above: Order Comment: Speci men Type: BLOOD SPECIMEN Ordering Facility: [facility] Address: [address] [place] [address] Performed By: #### 2 4323-8 #### [facility] CLIA [id number] [address] [place] [address] [place] Sodium [Moles/Vol] 139 mmol/L Normal 136-144 [facility] Comment on above: Order Comment: Speci men Type: BLOOD SPECIMEN Ordering Facility: [facility] Address: [address] [place] [address] Performed By: #### 2 4323-8 #### [facility] CLIA [id number] [address] [place] [address] [place] Urea nitrogen [Mass/Vol] 34 mg/dL High 9-24 [facility] Comment on above: Order Comment: Speci men Type: BLOOD SPECIMEN Ordering Facility: [facility] Address: [address] [place] [address] Performed By: #### 2 4323-8 #### [facility] CLIA [id number] [address] [place] [address] [place] Ferritin SerPl-mCncon 2021 Ferritin [Mass/Vol] 105.0 ng/mL Normal 30.3-565.7 [facility] Comment on above: Order Comment: Speci men Type: BLOOD SPECIMEN Ordering Facility: [facility] Address: [address] [place] [address] Performed By: #### 5 0190-8, 2276-4 #### [facility] CLIA [id number] [address] [place] [address] [place] [address] [place] Iron and Iron binding capaci ty panelon 11-17-2021 Iron [Mass/Vol] 45 ug/dL Normal 41-186 [facility] Comment on above: Order Comment: Speci men Type: BLOOD SPECIMEN Ordering Facility: [facility] Address: [address] [place] [address] Performed By: #### 5 0190-8, 2276-4 #### [facility] CLIA [id number] [address] [place] [address] [place] Iron binding capacity [Mass/Vol] 326 ug/dL Normal 232-386 [facility] Comment on above: Order Comment: Speci men Type: BLOOD SPECIMEN Ordering Facility: [facility] Address: [address] [place] [address] Performed By: #### 5 0190-8, 2276-4 #### [facility] CLIA [id number] [address] [place] [address] [place] Iron/TIBC [Molar ratio] 13.8 % Low 15.0-57.0 [facility] Comment on above: Order Comment: Speci men Type: BLOOD SPECIMEN Ordering Facility: [facility] Address: [address] [place] [address] Performed By: #### 5 0190-8, 2276-4 #### [facility] CLIA [id number] [address] [place] [address] [place] PSA [facility]-ncon 11-17-2021 Prostate specific Ag [Mass/Vol] 2.04 ng/mL Normal <2.60 [facility] Comment on above: Order Comment: Speci men Type: BLOOD SPECIMEN Ordering Facility: [facility] Address: [address] [place] [address] Result Comment: Tota l PSA test methodology used is the Electrochemiluminescence Immunoassay by [employer]. Total PSA values by differing methodologies cannot be interchanged. Performed By: #### 2 857-1 #### [facility] CLIA [id number] [address] [id number] [place] Encounters Encounter Date Encounter Type Care Provider Facility Start: 05-26-2022 End: 05-26-2022 ambulatory PACO EDMONDS Facility:[facility] Start: 11-19-2021 End: 11-19-2021 ambulatory PACO EDMONDS Facility:[facility] Start: 11-17-2021 End: 11-17-2021 ambulatory PACO EDMONDS Facility:[facility] Start: 11-17-2021 End: 11-17-2021 Subsequent hospital visit by physician Ct [facility] ([facility]) Work Phone: Cat Scan Comment on above: Lung nodules [R91.8] Procedures Date Procedure Procedure Detail Performing Clinician Start: 11-17-2021 Ct thorax w/o contra st material Paco Edmonds MD Work Phone: Start: 09-28-[address] screening assessment [address] ([facility]) Work Phone: Plan of Treatment Date Care Activity Detail Author Start: 11-17-2024 DIABETES SCREEN DIABETES SCREEN [facility] Start: 01-14-2022 Influenza vaccination INFLUENZA (#1) [facility] Start: 05-16-2021 ADVANCE DIRECTIVE DISCUSSION ADVANCE DIRECTIVE DISCUSSION [facility] Start: 09-28-2018 Adult depression screening assessment DEPRESSION SCREENING [facility] Start: 01-14-2008 PNEUMOCOCCAL: 65+ (1 - PCV) PNEUMOCOCCAL: 65+ (1 - PCV) [facility] Start: 1993 SHINGRIX VACCINE (1 of 2) SHINGRIX VACCINE (1 of 2) [facility] Start: 1962 Urine microalbumin profile DTAP,TDAP,TD (1 - Tdap) [facility] Start: 1961 ANNUAL PCP TEAM INCENDIARY POWDER MIXER ANETA DISEASE VISIT ANNUAL PCP TEAM CHRONIC DISEASE VISIT [facility] Start: 1961 BP CONTROLLED (<130/80) BP CON TROLLED (<130/80) [facility] Ct thorax w/o contra st material CT CHEST WO IVCON Radiology Routine Lung nodules Malignant neoplasm of prostate (HCC) 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) 11/17/2021 10:45 AM EDT [facility] Work Phone: [facility] Immunizations Immunization Date Immunization Notes Care Provider Fa cility 03-12-2015 influenza, high dose seasonal, preservative-free Ct ([facility]) Work Phone: [facility] Payers Date Payer Category Payer Private Health Insurance [facility] AARP SUPPLEMENT [id number] 2012-Present [phone] [address] [place] [address] Indemnity [id number] 2012 Unknown [id number] 2007 Medicare MEDICARE MEDICAR E A AND B [id number] 2007-Present [phone] [address] [address] [place] [address] Medicare [id number] 2007 Medicare [id number] Social History Date Type Detail Facility Start: 04-30-2013 Tobacco smoking stat us NMIS Never smoked tobacco [facility] Start: 04-30-2013 Tobacco use and exposure Smoke less tobacco non-user [facility] Start: 05-13-2021 Alcohol intake Current drinke r of alcohol (finding) [facility] Start: 06-17-2016 History SDOH Alcohol Comment rare [facility] Start: 1945 Sex Assigned At Male [facility] Start: 11-07-2021 End: 11-17-2021 Exposure to SARS-CoV-2 (event) Not sure [facility] Progress note 05-26-2022 Note Date & Type Note Facility 05-26-2022 Note HNO ID: [id number] Author: Paco Edmonds MD Service: ? Author Type: Physician Type: Progress Notes Filed: 05/27/2022 10:53 AM Note Text: Hematology and Medical Oncology PATIENT NAME: Vilma Smith. CLINIC NO: [id number]. ATTENDING PHYSICIAN: Paco Edmonds MD. DATE OF [...] Abs Lymph 1.00 - 4.00 k/uL 1.25 Crockett% % 8.7 Abs Crockett <0.87 k/uL 0.54 Eosin% % 5.6 Abs [...] - 105 mmol (more content not included)... [facility] Progress note 11-19-2021 Note Date & Type Note Facility 11-19-2021 Note HNO ID: [id number] Author: Paco Edmonds MD Service: ? Author Type: Physician Type: Progress Notes Filed: 11/20/2021 9:00 AM Note Text: Hematology and Medical Oncology PATIENT NAME: Vilma Smith. CLINIC NO: [id number]. ATTENDING PHYSICIAN: Paco Edmonds MD. DATE OF [...] Abs Lymph 1.00 - 4.00 k/uL 1.17 Crockett% % 9.0 Abs Crockett <0.87 k/uL 0.57 Eosin% % 8.4 Abs [...] % 13.8 ( (more content not included)... [facility] Progress note 11-17-2021 Note Date & Type Note Facility 11-17-2021 Note HNO ID: [id number] Author: RT Piero(Titus) Service: ? Author Type: Dentofacial Orthopedics Dentist Type: Progress Notes Filed: 11/17/2021 12:04 PM [...] RT Gurpreet(R) November 17, 2021 12:03 PM [facility] History of Present illness Narrative 11-17-2021 YAN [...] 2021 12:03 PM documented in this encounter [facility] History of Past illness Narrative [...] of this encounter (statuses as of 11/18/2021) [facility] Evaluation note Note Date & Type Note Facility Evaluation note Diagnosis Lung nodules Other nonspecific abnormal finding of lung field Malignant neoplasm of prostate (HCC) Malignant neoplasm of prostate 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) documented in this encounter [facility] Reason for Referral Specialty Diagnoses / Procedures Referred By Contac t Referred To Contact CT IMAGING Diagnoses Lung nodules Malignant neoplasm of prostate (HCC) 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) Procedures CT CHEST WO [facility] CAT SCAN OF CHEST Paco Edmonds MD [address] [place] [address] Ct Imaging Referral ID Status Reason Start Date Expiration Date V isits Requested Visits Authorized [id number] Closed Auto-Generate d Referral 11/11/2021 06/12/2022 1 1 Advance Directives No Advanced Directives Records FoundDocuments on File Type Date Recorded Patient Classroom Assistant Expl anation Advance Directive(s) 06/21/2017 9:26 AM [...] or prosecute any alcohol or drug abuse patient.[facility] Reason for Visit (unrecogniz ed section and content) Reason Comments Radiology CT Specialty Diagnoses / Procedures Referred By Contac t Referred To Contact CT IMAGING Diagnoses Lung nodules Malignant neoplasm of prostate (HCC) 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) Procedures CT CHEST WO IVCON CAT SCAN OF CHEST Paco Edmonds MD [address] [place] [address] Ct Imaging Referral ID Status Reason Start Date Expiration Date V isits Requested Visits Authorized [id number] Closed Auto-Generate d Referral 11/11/2021 06/12/2022 1 1 Care Teams (unrecognized sec tion and content) Assistant Clinical Nurse Manager Relationship Specialty Start Date End Date Rigo Manrique MD PCP - General Family Practice 03/21/17 Siddharth Navarro [address] [place] [address] [phone] Specialty Caul Fat Puller Urology 09/28/17 (unrecognized sect ion and content) No Status Records Found INFORMATION SOURCE (unrecogn ized section and content) DATE CREATED AUTHOR 05/28/2022 [facility] FOR RECORDS PERTAINING TO PATIENTS WHO ARE [...] BE BASED ON THE PRIMARY CLINICAL RECORDS. [facility]. provides no warranty or guarantee of the accuracy or completeness of information in this document.
--- NOTE | 2024-04-03 11:36 | PCM.OPRPT ---
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 The urethra and genitals were prepped and draped in usual sterile fashion. Using a 21 [place] rigid cystourethroscope the entire length of the urethra was normal then went into the bladder. Identified the trigone the left and right ureteral orifice. I then cannulated the Left ureteral orifice and advanced a wire up into the kidney. I then backloaded a 5 [place] open ended catheter over the wire and injected contrast to delineate the anatomy. After the retrograde was performed I then used fluoroscopic images and guidance to advanced a wire up into the kidney and over the 0.038 glidewire I advanced a 6 [place] by 26 cm double pigtail stent. I then pulled the 0.038 Glidewire off and the stent coiled in the kidney bladder good position. The bladder was then drained. We confirmed the position of the stent by fluoroscopy. Using a 21 [place] rigid cystourethroscope the entire length of the urethra was normal then went into the bladder. Identified the trigone the left and right ureteral orifice. I then cannulated the right ureteral orifice and advanced a wire up into the kidney. I then backloaded a 5 [place] open ended catheter over the wire and injected contrast to delineate the anatomy. After the retrograde was performed I then used fluoroscopic images and guidance to advanced a wire up into the kidney and over the 0.038 glidewire I advanced a 6 [place] by 26 cm double pigtail stent. I then pulled the 0.038 Glidewire off and the stent coiled in the kidney bladder good position. The bladder was then drained. We confirmed the position of the stent by fluoroscopy. Patient anesthetic was reversed and was taken back to the PACU in good condition. Surgical Findings: Bilateral stents were changed Dye Colorist Formulator jewel stringer: No Complications Complications: No Admit VTE Documentation VTE Present on Admission: No VTE Mechan Device Prophylaxis: SCD's VTE Pharm Prophylaxis ordered?: No
--- NOTE | 2024-04-03 11:49 | PCM.POST.ANE ---
Anesthesia: Postop Eval I Current Vital Signs Temperature: 99.3 F Pulse Rate: 66 Blood Pressure: 113/62 Respiratory Rate: 14 Pulse Ox: 99 Oxygen Delivery Method: Room Air Assessment Airway patent: Yes Spontaneous unlabored respirations: Yes Mental status: Awake and Calm nausea: No Vomiting: No Anesthesia Complication: No Fluid Hydration Crystalloid volume administer (ml): 100 Total IV fluid infused: 100 Progress Note Anesthesia document: Postop Eval 1 completed: Yes
--- NOTE | 2024-04-03 12:15 | CASEMGMT ---
RN CM into pt room, pt is off floor at this time. RN CM will complete assessment at a later time.
--- NOTE | 2024-04-03 12:43 | CHAPLAIN ---
Type of Pastoral Visit ___ Initial Visit ___ Follow-up Visit ___ On-call Visit ___ General Patient Visit ___ Spiritual Assessment ___ Family Conference ___ Bereavement ___ Rapid Response ___ Code Blue ___ Other (describe below) Pastoral Care Referral From ___ Patient ___ Family ___ Nurse ___ Physician ___ Division Chair ___ Oil Process [place] ___ Other (describe below) Sacrament/Intervention ___ Active listening ___ Anointing ___ Quaker ___ Bereavement ___ Communion ___ Sue exploration ___ ___ Life review ___ Prayer ___ Reconciliation ___ Sacrament of Sick ___ Supportive presence ___ Wedding ___ Other (describe below) Pastoral Comments patient was out of the room for surgery
--- NOTE | 2024-04-03 14:00 | CASEMGMT ---
NATHAN STOUT Assessment: Face to Face with pt for initial transition planning/care coordination assessment. RN ARGELIA introduced self and role at [facility], pt voices understanding and consents to assessment. Pt is A&O x4 and answers all questions appropriately at this time. Pt sitting up in bed in no distress. Care providers, pharmacy, and demographics verified/updated. Admitting Dx: complicated UTI, FTT Strata Score: 2 PCP:Dmitriy Specialists:Melanie, uro; Prah, onc Preferred Pharmacy: [facility] Insurance: [facility], [employer] Prescription Benefit: yes LNOK: Dartomas Smith, Living Arrangements: Pt lives with in a single story home with 2 steps to enter with a rail. Pt reports he was I in ADLs and denies concerns at home. Transportation: Pt drives self and denies concerns with transportation. DME:cane, walker, grab bars in shower HHC/SNF: [facility] HHC in the past and denies SNF stays Pt states no concerns with going home at time of dc. Pt states he is feeling much better. Pt has a chronic lyman that he goes monthly to Dr. Navarro's office for change of and a colostomy that pt is I with. Pt gets his ostomy supplies from [employer]. Pt requested business card for this RN ARGELIA. Pt states no further concerns/needs. CM to follow. Advised pt to ask CM if any further question/concerns/needs arise, voices understanding. Pt Goal: Home Plan: Home Deyanira EVANS CM
[2024-04-03] MEDS: 0.9% Normal Saline (1000mL) 1,000 ML 75 ML IV (14:22)
--- NOTE | 2024-04-03 16:01 | PCM.POSTANE2 ---
Anesthesia Postop Eval I Sum Postop Eval Completion status Anesthesia document: Postop Eval 1 completed: Yes Anesthesia Postop Eval I Summary Anesthesia Postop Eval I Summary: Anesthesia Postop Eval I: Assessment Summary Airway patent Yes 04/03/24 11:49 [email or web address] Spontaneous unlabored Yes 04/03/24 11:49 [email or web address] respirations Mental status Awake,Calm 04/03/24 11:49 [email or web address] nausea No 04/03/24 11:49 [email or web address] Vomiting No 04/03/24 11:49 [email or web address] Anesthesia Postop Eval I: Fluid Summary Crystalloid volume administer 100 04/03/24 11:49 [email or web address] (ml) Colloids volume administered ( ml) Blood Product volume administered (ml) Total IV fluid infused 100 04/03/24 11:49 [email or web address] Anesthesia Postop Eval I: Summary Notes Anesthesia Complication No 04/03/24 11:49 [email or web address] Anesthesia Complication Comment: Post-operative progress note Anesthesia: Postop Eval II Evaluation Mental status: Awake and Calm Pain Level: 1 nausea: No Vomiting: No Complications Anesthesia Complication: No
[2024-04-03] MEDS: predniSONE 5 MG Tablet PO (16:11)
[2024-04-03] MEDS: Atorvastatin Calcium 10 MG Tablet PO (22:44)
[2024-04-04] VITALS (13 sets, daily range): BP systolic 127–152; BP diastolic 65–77; PULSE 73–80; RESP 16–18; TEMP 36.3–36.8; O2SAT 95–100
[2024-04-04 04:56] LABS: Absolute Lymphocyte Count 0.56 X10^3/uL (0.83-4.51); Absolute Neutrophil Count 5.3 X10^3/uL (2.0-7.7); Basophil# 0.01 X10^3/uL; Basophil% 0.2 % (0-1); Eosinophil# 0.01 X10^3/uL; Eosinophils% 0.2 % (0-5); Lymphocyte # 0.56 X10^3/ul (0.83-4.51); Lymphocyte % 8.6 % (19-41); Mean Corpuscular Volume 90.3 fL (80-94); Mean Platelet Vol. 10.1 fl (6.2-12.0); Monocyte# 0.61 X10^3/uL; Monocyte% 9.4 % (0-10); NRBC Flagged by Analyzer 0 % (0-5); Neutrophil # 5.26 X10^3/uL (2.7-7.7); POSITIVE DIFFERENTIAL YES; Platelet Count 197 K/mm3 (150-450); RBC Distribution Width CV 17.9 % (11.6-14.6); RBC Distribution Width SD 58.8 fl (35.1-43.9); Red Blood Count 3.21 M/mm3 (4.6-6.2); White Blood Count 6.5 K/mm3 (4.4-11.0)
[2024-04-04 05:27] LABS: Anion Gap 3 (5-15); BUN 33 mg/dL (7-18); BUN/Creat Ratio 24.1 RATIO (10-20); Calcium,Total 7.8 mg/dL (8.5-10.1); Chloride 118 mmol/L (98-107); Creatinine, Serum 1.37 mg/dL (0.70-1.30); EST Glomerular Filtration Rate 53 mL/min (>60); Est Glom Filt Rate - Afr Amer 64 mL/min (>60); Estimated Creatinine Clearance 43.66 ml/min; Glucose 187 mg/dL (74-106); Potassium 3.8 mmol/L (3.5-5.1); Sodium Level 143 mmol/L (136-145)
[2024-04-04] MEDS: hydrALAZINE 25 MG Tablet PO ×3 (05:56→21:16)
[2024-04-04] MEDS: Acetaminophen 500 MG Tablet 1000 MG PO ×3 (05:56→21:16)
[2024-04-04] MEDS: Piperacil/Tazobactam 3.375 GM in 0.9% Normal Saline (50mL MB+) 50 ML IV ×3 (05:57→21:15)
--- NOTE | 2024-04-04 07:20 | PN.HOSP_ITS ---
Reason for Visit Reason for Visit: Diagnoses Malignant neoplasm of prostate (04/02/24) Secondary malignant neoplasm of liver and intrahepatic bile duct (04/02/24) Acidosis, unspecified (04/02/24) Alkalosis (04/02/24) Hypokalemia (04/02/24) Other disorders of electrolyte and fluid balance, not elsewhere classified (04/02/24) Toxic gastroenteritis and colitis (04/02/24) Acute kidney failure, unspecified (04/02/24) Chronic kidney disease, unspecified (04/02/24) Urinary tract infection, site not specified (04/02/24) Weakness (04/02/24) Adverse effect of antineoplastic and immunosuppressive drugs, initial encounter (04/02/24) Subjective Subjective Feels well post stent exchange. Objective Data Objective Data Vital Signs: Vital Signs Temp Pulse Resp BP Pulse Ox O2 Del Method 36.6 C 77 18 127/65 H 99 Room Air 04/04/24 03:23 04/04/24 05:56 04/04/24 03:23 04/04/24 05:56 04/04/24 03:23 04/04/24 03:36 Oxygen Delivery Method Room Air Weight: 74.7 kg Body Mass Index (BMI) 23.6 Intake & Output: Intake and Output for Last 24 Hours 04/02/24 04/03/24 04/04/24 23:59 23:59 23:59 Intake Total 562.5 / 762.5 1844.0 / 1844.0 1350 / 1350 Output Total 200 / 700 1760 / 1760 600 / 600 Balance 362.5 / 62.5 84.0 / 84.0 750 / 750 Lab / Micro Data 04/04/24 04:10 04/04/24 04:10 Labs: Laboratory Results - last 24 hr 04/03/24 06:33: Sodium 143, Potassium 4.0, Chloride 117 H, Carbon Dioxide 21.0, Anion Gap 5, BUN 36 H, Creatinine 1.47 H, Estim Creat Clear Calc 40.69, Est GFR (MDRD) Af Amer 59 L, Est GFR (MDRD) Non-Af 49 L, BUN/Creatinine Ratio 24.5 H, G lucose 150 H, Calcium 8.1 L, Phosphorus 2.8, Magnesium 1.5 L, Total Bilirubin 0.40, AST 16, ALT 20, Alkaline Phosphatase 67, Total Protein 4.7 L, Albumin 1.8 L, Globulin 2.9, Albumin/Globulin Ratio 0.6 L 04/04/24 04:10: WBC 6.5, RBC 3.21 L, Hgb 9.0 L, Hct 29.0 L, MCV 90.3, MCH 28.0, MCHC 31.0 L, RDW Std Deviation 58.8 H, RDW Coeff of [place] 17.9 H, Plt Count 197, MPV 10.1, Immature Gran % (Auto) 0.600, Neut % (Auto) 81.0 H, Lymph % (Auto) 8.6 L, [place] % (Auto) 9.4, Eos % (Auto) 0.2, Baso % (Auto) 0.2, Absolute Neuts (auto) 5.3, Absolute Lymphs (auto) 0.56 L, Nucleated RBC % 0, Sodium 143, Potassium 3.8, Chloride 118 H, Carbon Dioxide 22.0, Anion Gap 3 L, BUN 33 H, Creatinine 1.37 H, Estim Creat Clear Calc 43.66, Est GFR (MDRD) Af Amer 64, Est GFR (MDRD) Non-Af 53 L, BUN/Creatinine Ratio 24.1 H, Glucose 187 H, Calcium 7.8 L Micro: Microbiology 04/02/24 12:31 Urine Catheter - Catheter Urine Culture - Preliminary 04/02/24 14:18 Mucosa - Nasopharyngeal Respiratory Panel (PCR) - Final Physical Exam Const alert and no apparent distress HEENT head/scalp atraumatic and moist oral mucous membranes Resp normal respiratory effort, no retractions, no use of accessory muscles and clear to auscultation bilaterally Cardio regular rate, regular rhythm, S1 normal heart sound and S2 normal heart sound GI normal to inspection, nondistended, normoactive bowel sounds, soft to palpation, non-tender and non-distended Extremity normal to inspection, full ROM and no clubbing, cyanosis or edema Neuro oriented x3, CN's II-XII intact bilaterally, moves all extremities and no focal motor deficits Psych affect normal Assessment & Plan Assessment/Plan (1) Acute on chronic kidney failure: (2) Chemotherapy induced diarrhea: (3) Complicated urinary tract infection: (4) Generalized weakness: (5) Respiratory alkalosis: (6) Metabolic acidosis: (7) Hypokalemia: (8) Hyperchloremia: PLAN: Plan Complicated urinary tract infection (CAUTI, possible stent-related) * Guthrie changed * abx w pip/tazo * follow up Cx * CT showed bilateral hydroneprhosis and hydroureter down to the level of the bladder with bilateral double-J stents. * performed cystoscopy and bilateral stent change on 04/03 MEAGAN ruled out. Creatinine similar to back in February. Chemo induced diarrhea * Patient has been holding Xtandi for the last several days so his diarrhea has resolved * Hold home loperamide since he is not taking the medication however he reports it has been resistant to every measure given to him by oncology * Patient reports stool is slowly getting hard Hypokalemia * improved with replacement. Debility * PT OT eval and treat Metastatic prostate cancer * Follows with Dr. Gonzales * hold Xtandi due to diarrhea and encouraged patient to have further discussion with Dr. Gonzales at next visit as patient states it has been refractory to everything they have given him to decrease his diarrhea * last chemotherapy with docetaxel on 03/28 Chronic conditions: * HTN: amlodipine and losartan held for now. Continue hydralazine * HLP: continue statin * Essential hypertension/hyperlipidemia * DM2: metformin held. Stable. Expectant mgmt. VTE prophylaxis: enoxaparin. Disposition: Waiting on final urine culture result (which are just growing gram- negative rods at this time) if it has something amenable to oral antibiotics and plan to be to discharge him hopefully Charges/Coding Visit Charges Inpatient E&M: 59279 Subs Hosp L2
[2024-04-04] MEDS: predniSONE 5 MG Tablet PO ×2 (08:44→18:35)
[2024-04-04] MEDS: Enoxaparin 40 MG/0.4 ML Syringe SC (10:55)
[2024-04-04] MEDS: Metoprolol(XL)Succ 100 MG Tablet PO (10:56)
--- NOTE | 2024-04-04 15:45 | CHAPLAIN ---
Type of Pastoral Visit _x__ Initial Visit ___ Follow-up Visit ___ On-call Visit ___ General Patient Visit ___ Spiritual Assessment ___ Family Conference ___ Bereavement ___ Rapid Response ___ Code Blue ___ Other (describe below) Pastoral Care Referral From _x__ Patient ___ Family ___ Nurse ___ Physician ___ Brick Sorter ___ Hogshead Weigher ___ Other (describe below) Sacrament/Intervention _x__ Active listening ___ Anointing ___ Yazidism ___ Bereavement ___ Communion _x__ Sue exploration ___ _x__ Life review _x__ Prayer ___ Reconciliation ___ Sacrament of Sick _x__ Supportive presence ___ Wedding ___ Other (describe below) Pastoral Comments patient is welcoming and specifically states that he had requested a visit; pt was out of the room yesterday for a procedure; pt gives some background on his health condition and states how he is handling it and what he is facing in these days through the treatments; pt has also had new health issues recently which gives pt concern about his own ability to see that she is taken care of in case of my illness or passing ; pt speaks openly about his thoughts on continuing treatments and facing his ; pt and have no children and very limited support so this is more emotionally involved; pt is not connected to a sue community but was raised in the [place] roman catholic; patient does not consider himself druze but asked this boat designer to remember him in prayer; pt asked for a follow up visit if possible
[2024-04-04] MEDS: Atorvastatin Calcium 10 MG Tablet PO (21:19)
[2024-04-05] VITALS (16 sets, daily range): BP systolic 130–168; BP diastolic 64–92; PULSE 75–86; RESP 16–18; TEMP 36.3–36.8; O2SAT 98–99
[2024-04-05] MEDS: Piperacil/Tazobactam 3.375 GM in 0.9% Normal Saline (50mL MB+) 50 ML IV ×3 (06:50→21:29)
[2024-04-05] MEDS: hydrALAZINE 25 MG Tablet PO ×3 (06:50→21:29)
[2024-04-05] MEDS: Acetaminophen 500 MG Tablet 1000 MG PO ×3 (06:51→21:29)
[2024-04-05 07:08] LABS: Absolute Lymphocyte Count 0.76 X10^3/uL (0.83-4.51); Absolute Neutrophil Count 5.8 X10^3/uL (2.0-7.7); Basophil# 0.03 X10^3/uL; Basophil% 0.4 % (0-1); Eosinophil# 0.02 X10^3/uL; Eosinophils% 0.3 % (0-5); Hematocrit 31.6 % (40-54); Hemoglobin 10.2 g/dL (13.0-16.5); Lymphocyte # 0.76 X10^3/ul (0.83-4.51); Lymphocyte % 10.4 % (19-41); Mean Corp Hgb Conc 32.3 g/dL (32-36); Mean Corpuscular Hgb 28.7 pg (27.0-32.0); Mean Corpuscular Volume 88.8 fL (80-94); Mean Platelet Vol. 10.1 fl (6.2-12.0); Monocyte% 8.2 % (0-10); NRBC Flagged by Analyzer 0 % (0-5); Neutrophil # 5.83 X10^3/uL (2.7-7.7); Platelet Count 216 K/mm3 (150-450); RBC Distribution Width CV 17.8 % (11.6-14.6); RBC Distribution Width SD 56.3 fl (35.1-43.9); Red Blood Count 3.56 M/mm3 (4.6-6.2); White Blood Count 7.3 K/mm3 (4.4-11.0)
--- NOTE | 2024-04-05 07:17 | PN.HOSP_ITS ---
Reason for Visit Reason for Visit: Diagnoses Malignant neoplasm of prostate (04/02/24) Secondary malignant neoplasm of liver and intrahepatic bile duct (04/02/24) Acidosis, unspecified (04/02/24) Alkalosis (04/02/24) Hypokalemia (04/02/24) Other disorders of electrolyte and fluid balance, not elsewhere classified (04/02/24) Toxic gastroenteritis and colitis (04/02/24) Acute kidney failure, unspecified (04/02/24) Chronic kidney disease, unspecified (04/02/24) Urinary tract infection, site not specified (04/02/24) Weakness (04/02/24) Adverse effect of antineoplastic and immunosuppressive drugs, initial encounter (04/02/24) Subjective Subjective Feels well. Requesting a regular diet. States that he never smoked, but smoking is on his PMx. Objective Data Objective Data Vital Signs: Vital Signs Temp Pulse Resp BP Pulse Ox O2 Del Method 36.8 C 75 18 168/77 H 99 Room Air 04/05/24 06:44 04/05/24 06:50 04/05/24 06:44 04/05/24 06:44 04/05/24 06:44 04/05/24 06:44 Oxygen Delivery Method Room Air Weight: 74.7 kg Body Mass Index (BMI) 23.6 Intake & Output: Intake and Output for Last 24 Hours 04/03/24 04/04/24 04/05/24 23:59 23:59 23:59 Intake Total 1844.0 / 1844.0 1967 / 1967 50 / 50 Output Total 1760 / 1760 1500 / 1500 650 / 650 Balance 84.0 / 84.0 468 / 468 -600 / -600 Lab / Micro Data 04/05/24 06:32 04/05/24 06:32 Labs: Laboratory Results - last 24 hr 04/05/24 06:32: WBC 7.3, RBC 3.56 L, Hgb 10.2 L, Hct 31.6 L, MCV 88.8, MCH 28.7, MCHC 32.3, RDW Std Deviation 56.3 H, RDW Coeff of [place]mar 17.8 H, Plt Count 216, MPV 10.1, Immature Gran % (Auto) 0.700, Neut % (Auto) 80.0 H, Lymph % (Auto) 10.4 L, [place] % (Auto) 8.2, Eos % (Auto) 0.3, Baso % (Auto) 0.4, Absolute Neuts (auto) 5.8, Absolute Lymphs (auto) 0.76 L, Nucleated RBC % 0 Micro: Microbiology 04/02/24 12:31 Urine Catheter - Catheter Urine Culture - Preliminary Gram negative roel Gram negative roel#2 04/02/24 14:18 Mucosa - Nasopharyngeal Respiratory Panel (PCR) - Final Physical Exam Const alert and no apparent distress Constitutional Narrative: up in chair. afebrile. non-toxic. HEENT head/scalp atraumatic and moist oral mucous membranes Resp normal respiratory effort, no retractions, no use of accessory muscles and clear to auscultation bilaterally Cardio regular rate, regular rhythm, S1 normal heart sound and S2 normal heart sound GI normal to inspection, nondistended, normoactive bowel sounds, soft to palpation, non-tender and non-distended Neuro Sensorium / Orientation: awake and alert Assessment & Plan Assessment/Plan (1) Complicated urinary tract infection: (2) Chemotherapy induced diarrhea: PLAN: Plan Complicated urinary tract infection (CAUTI, possible stent-related) * Guthrie changed * abx w pip/tazo * CT showed bilateral hydroneprhosis and hydroureter down to the level of the bladder with bilateral double-J stents. * performed cystoscopy and bilateral stent change on 04/03 * Cultures showing Proteus vulgaris and possible Pseudomonas * MEAGAN ruled out. Creatinine similar to back in February. Chemo induced diarrhea * Patient has been holding Xtandi for the last several days so his diarrhea has resolved * Hold home loperamide since he is not taking the medication however he reports it has been resistant to every measure given to him by oncology * Patient reports stool is slowly getting hard Hypokalemia * improved with replacement. Debility * PT OT eval and treat Metastatic prostate cancer * Follows with Dr. Gonzales * hold Xtandi due to diarrhea and encouraged patient to have further discussion with Dr. Gonzales at next visit as patient states it has been refractory to everything they have given him to decrease his diarrhea * last chemotherapy with docetaxel on 03/28 Chronic conditions: * HTN: amlodipine and losartan held for now. Continue hydralazine * HLP: continue statin * Essential hypertension/hyperlipidemia * DM2: metformin held. Stable. Expectant mgmt. VTE prophylaxis: enoxaparin. Disposition: Waiting on final urine culture result (which are just growing gram- negative rods at this time) if it has something amenable to oral antibiotics. Charges/Coding Visit Charges Inpatient E&M: 94917 Subs Hosp L2
[2024-04-05 07:41] LABS: Anion Gap 4 (5-15); BUN 23 mg/dL (7-18); BUN/Creat Ratio 19.7 RATIO (10-20); Chloride 118 mmol/L (98-107); Creatinine, Serum 1.17 mg/dL (0.70-1.30); EST Glomerular Filtration Rate 64 mL/min (>60); Est Glom Filt Rate - Afr Amer 77 mL/min (>60); Estimated Creatinine Clearance 51.13 ml/min; Glucose 123 mg/dL (74-106); Potassium 3.8 mmol/L (3.5-5.1); Sodium Level 142 mmol/L (136-145)
--- NOTE | 2024-04-05 07:52 | PCM.CONS.U ---
HPI Consult Data Date of Consult: 04/05/24 HPI Narrative HPI Narrative: VILMA SAM, is a 79 M who presents status post stent change the other day the Guthrie catheter was also placed urine output is good urine is now clear awaiting urine cultures continue with treatments he can follow-up with me as an outpatient no further intervention I think is necessary from urology signing off call with questions [facility] Medical History Generalized weakness CINV (chemotherapy-induced nausea and vomiting) 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 Anemia Edema of both lower legs Prerenal azotemia Diarrhea due to drug Encounter for education Elevated PSA Torn meniscus Chronic pain COVID History of Clostridium difficile infection Indwelling urethral catheter present Diabetes Gout High cholesterol Non-smoker History of anal cancer Cancer HTN (hypertension) Home Medications ?Medication ?Instructions ?Recorded ?Last Taken ?Type losartan 100 mg tablet 100 mg PO DAILY bp 06/01/13 01/09/24 History metoprolol succinate 100 mg 100 mg PO DAILY bp 06/01/13 01/09/24 History tablet,extended release 24 hr metformin 500 mg tablet,extended 500 mg PO DAILY DIABETES 04/25/20 03/05/23 History release 24 hr rosuvastatin 5 mg tablet 5 mg PO DAILY CHOLESTEROL 12/16/21 03/04/23 History amlodipine 10 mg tablet 10 mg PO DAILY BP 01/07/23 01/09/24 History hydralazine 25 mg tablet 25 mg PO TID 30 days #90 tabs 03/23/23 Unknown Rx abiraterone 500 mg tablet 1,000 mg PO DAILY 12/30/23 Unknown History lidocaine-prilocaine 2.5 %-2.5 % 1 applic topical ONCE PRN port 01/09/24 Unknown Rx topical cream access 30 days #30 grams omeprazole 20 mg capsule,delayed 20 mg PO DAILY #30 caps 01/09/24 Unknown Rx release potassium chloride 20 mEq 40 meq (2 x 20 mEq) PO DAILY 30 03/08/24 Unknown Rx tablet,extended release(part/cryst) days #60 tabs prednisone 5 mg tablet 5 mg PO BID #60 tabs 03/14/24 Unknown Rx loperamide 2 mg capsule (Imodium 2 mg PO Q6H PRN loose stool 03/22/24 Unknown History A-D) ondansetron HCl 8 mg tablet 8 mg PO Q8H #30 tabs 03/28/24 Unknown Rx prochlorperazine maleate 10 mg 10 mg PO Q6H PRN nausea and 03/28/24 Unknown Rx tablet (Compazine) vomiting #30 tabs Allergy/AdvReac Type Severity Reaction Status Date / Time hydromorphone (From Dilaudid) AdvReac Other Verified 04/02/24 15:48 meperidine (From Demerol) AdvReac Nausea/Vom/ Verified 04/02/24 15:48 Diarrhea Family History Father Myocardial infarction Surgical History Hx of colectomy History of total left knee replacement S/P total knee arthroplasty Hx of cystoscopy Hx of left knee surgery Hx of cystoscopy Hx of cystoscopy Hx of cystoscopy (~05/28/20) Hx of cystoscopy (~01/23/20) Hx of dilation of urethra Hx of cystoscopy Hx of cystoscopy Hx of cystoscopy History of removal of Port-a-Cath Hx of colonoscopy Hx of cataract surgery History of back surgery History of cholecystectomy History of appendectomy Social History household members: spouse Smoking Status: Never smoker alcohol intake: never substance use type: does not use Lab / Micro Data 04/05/24 06:32 04/05/24 06:32 Labs: Laboratory Results - last 24 hr 04/05/24 06:32: WBC 7.3, RBC 3.56 L, Hgb 10.2 L, Hct 31.6 L, MCV 88.8, MCH 28.7, MCHC 32.3, RDW Std Deviation 56.3 H, RDW Coeff of [place] 17.8 H, Plt Count 216, MPV 10.1, Immature Gran % (Auto) 0.700, Neut % (Auto) 80.0 H, Lymph % (Auto) 10.4 L, [place] % (Auto) 8.2, Eos % (Auto) 0.3, Baso % (Auto) 0.4, Absolute Neuts (auto) 5.8, Absolute Lymphs (auto) 0.76 L, Nucleated RBC % 0, Sodium 142, Potassium 3.8, Chloride 118 H, Carbon Dioxide 20.0 L, Anion Gap 4 L, BUN 23 H, Creatinine 1.17, Estim Creat Clear Calc 51.13, Est GFR (MDRD) Af Amer 77, Est GFR (MDRD) Non-Af 64, BUN/Creatinine Ratio 19.7, Glucose 123 H, Calcium 8.0 L Micro: Microbiology 04/02/24 12:31 Urine Catheter - Catheter Urine Culture - Preliminary Gram negative roel Gram negative roel#2
[2024-04-05] MEDS: predniSONE 5 MG Tablet PO ×2 (08:29→16:36)
[2024-04-05] MEDS: Metoprolol(XL)Succ 100 MG Tablet PO (08:30)
[2024-04-05] MEDS: Enoxaparin 40 MG/0.4 ML Syringe SC (11:24)
[2024-04-05] MEDS: Atorvastatin Calcium 10 MG Tablet PO (21:29)
[2024-04-06] VITALS (10 sets, daily range): BP systolic 134–163; BP diastolic 49–83; PULSE 69–78; RESP 12–18; TEMP 36.3–37.1; O2SAT 98–100
[2024-04-06] MEDS: Piperacil/Tazobactam 3.375 GM in 0.9% Normal Saline (50mL MB+) 50 ML IV ×3 (05:40→21:38)
[2024-04-06] MEDS: hydrALAZINE 25 MG Tablet PO ×3 (05:42→21:37)
[2024-04-06] MEDS: Acetaminophen 500 MG Tablet 1000 MG PO ×3 (05:43→21:37)
[2024-04-06] MEDS: predniSONE 5 MG Tablet PO ×2 (08:50→16:37)
[2024-04-06] MEDS: Enoxaparin 40 MG/0.4 ML Syringe SC (08:50)
[2024-04-06] MEDS: Metoprolol(XL)Succ 100 MG Tablet PO (08:51)
--- NOTE | 2024-04-06 11:35 | CASEMGMT ---
Addendum entered by Rossy Velasco 04/06/24 14:29: Spoke with hospitalist, pt prelim cx are back. Hospitalist spoke with pt. Plan for dc tomorrow pending results of cultures. Original Note: NATHAN STOUT notified that pt was asking for RN CM. NATHAN STOUT into pt room, pt states he understands that he is awaiting cx results but feels he is stagnant . Pt is concerned about going home over the weekend as he does not have transportation. He states his is home alone and she is not one to ask for help. Discussed options for transportation home if he dc's over the weekend. Pt states he does have funds for a taxi. Pt states he asked the hospitalist if he can go home with treatment and if the cx grow to change the treatment as an outpt. SW then notified NATHAN STOUT that pt results were in and that pt nurse is in touch with the hospitalist. Pt is aware of this and RN CM will be back in touch with him. Pt very pleasant, just worried about his .
--- NOTE | 2024-04-06 15:28 | PN.HOSP_ITS ---
Reason for Visit Reason for Visit: Diagnoses Malignant neoplasm of prostate (04/02/24) Secondary malignant neoplasm of liver and intrahepatic bile duct (04/02/24) Acidosis, unspecified (04/02/24) Alkalosis (04/02/24) Hypokalemia (04/02/24) Other disorders of electrolyte and fluid balance, not elsewhere classified (04/02/24) Toxic gastroenteritis and colitis (04/02/24) Acute kidney failure, unspecified (04/02/24) Chronic kidney disease, unspecified (04/02/24) Urinary tract infection, site not specified (04/02/24) Weakness (04/02/24) Adverse effect of antineoplastic and immunosuppressive drugs, initial encounter (04/02/24) Subjective Subjective Upset about the slow pace of the microbiology results. Concerned about his at home by herself. Objective Data Objective Data Vital Signs: Vital Signs Temp Pulse Resp BP Pulse Ox O2 Del Method 36.3 C L 78 16 152/71 H 99 Room Air 04/06/24 10:15 04/06/24 10:15 04/06/24 10:15 04/06/24 10:15 04/06/24 10:15 04/06/24 10:15 Oxygen Delivery Method Room Air Weight: 74.7 kg Body Mass Index (BMI) 23.6 Intake & Output: Intake and Output for Last 24 Hours 04/04/24 04/05/24 04/06/24 23:59 23:59 23:59 Intake Total 1967 / 1967 1050 / 1050 400 / 400 Output Total 1500 / 1500 1500 / 1500 Balance 468 / 468 -450 / -450 400 / 400 Lab / Micro Data 04/05/24 06:32 04/05/24 06:32 Micro: Microbiology 04/02/24 12:31 Urine Catheter - Catheter Urine Culture - Preliminary Proteus vulgaris GNR Poss Pseudomonas sp 04/02/24 14:18 Mucosa - Nasopharyngeal Respiratory Panel (PCR) - Final Physical Exam Const alert and no apparent distress HEENT head/scalp atraumatic and moist oral mucous membranes Resp normal respiratory effort, no retractions, no use of accessory muscles and clear to auscultation bilaterally Cardio regular rate, regular rhythm, S1 normal heart sound and S2 normal heart sound GI normal to inspection, nondistended, normoactive bowel sounds and soft to palpation Neuro Sensorium / Orientation: awake and alert Assessment & Plan Assessment/Plan (1) Complicated urinary tract infection: (2) Chemotherapy induced diarrhea: PLAN: Plan Complicated urinary tract infection (CAUTI, possible stent-related) * Guthrie changed * abx w pip/tazo * CT showed bilateral hydroneprhosis and hydroureter down to the level of the bladder with bilateral double-J stents. * performed cystoscopy and bilateral stent change on 04/03 * Cultures showing Proteus vulgaris and possible Pseudomonas. DW Microbiology, they said they should have the results of the Pseudomonas in the AM on 04/07. * DW patient and told him I would need him to stay until tomorrow to see the final results of the UCx so that I may dc him with the appropriate PO abx. I also told him I could not exclude and MDRO that would require IV abx. MEAGAN ruled out. Creatinine similar to back in February. Chemo induced diarrhea * Patient has been holding Xtandi for the last several days so his diarrhea has resolved * Hold home loperamide since he is not taking the medication however he reports it has been resistant to every measure given to him by oncology * Patient reports stool is slowly getting hard Hypokalemia * improved with replacement. Debility * PT OT eval and treat Metastatic prostate cancer * Follows with Dr. Gonzales * hold Xtandi due to diarrhea and encouraged patient to have further discussion with Dr. Gonzales at next visit as patient states it has been refractory to everything they have given him to decrease his diarrhea * last chemotherapy with docetaxel on 03/28 Chronic conditions: * HTN: amlodipine and losartan held for now. Continue hydralazine * HLP: continue statin * Essential hypertension/hyperlipidemia * DM2: metformin held. Stable. Expectant mgmt. VTE prophylaxis: enoxaparin. Disposition: Waiting on final urine culture result (which are just growing gram- negative rods at this time) if it has something amenable to oral antibiotics. Greater than 40 minutes of which greater than 50% of time was at the bedside, discussing microbiology test and that this is taking longer because he found a second organism after the first and that just restart the whole process. I told him that he would benefit from staying in the hospital until those results are finalized so that I can send him home with either the correct oral antibiotic or if multidrug-resistant organism may require IV antibiotics. Charges/Coding Visit Charges Inpatient E&M: 85277 Subs Hosp L2
[2024-04-06] MEDS: Atorvastatin Calcium 10 MG Tablet PO (21:38)
[2024-04-07] VITALS (9 sets, daily range): BP systolic 142–179; BP diastolic 77–92; PULSE 72–90; RESP 15–18; TEMP 36.6–36.8; O2SAT 99
[2024-04-07] MEDS: Piperacil/Tazobactam 3.375 GM in 0.9% Normal Saline (50mL MB+) 50 ML IV (05:49)
[2024-04-07] MEDS: Acetaminophen 500 MG Tablet 1000 MG PO ×2 (05:49→14:04)
[2024-04-07] MEDS: hydrALAZINE 25 MG Tablet PO ×2 (05:50→14:04)
[2024-04-07] MEDS: predniSONE 5 MG Tablet PO (09:04)
[2024-04-07] MEDS: Enoxaparin 40 MG/0.4 ML Syringe SC (09:05)
[2024-04-07] MEDS: Metoprolol(XL)Succ 100 MG Tablet PO (09:06)
--- NOTE | 2024-04-07 14:04 | DS.PCM_ITS ---
Providers Date of Admission: 04/02/24 Primary Care Physician: Dr. Rigo Izaguirre MD Consultations 04/02/24 15:38 Consult: Urology Routine Consulting Provider: Siddharth Navarro Reason for Consult: Hydroureter/Hydronephrosis EMERGENT Consult: No MD Notified: Yes Date Notified: 04/02/24 Time Notified: 15:00 Method of Notification: Verbal 04/02/24 16:27 Consult: Onc/Wound/clerk checker Routine Comment: Reason for Consult:: pt with colostomy Reason For Visit: COMPLICATED UTI, FAILURE TO THRIVE, ACUTE ON Diagnosis Discharge Diagnosis (1) Complicated urinary tract infection: Status: Acute Code(s): N39.0 - Urinary tract infection, site not specified (2) Chemotherapy induced diarrhea: Status: Acute Code(s): K52.1 - Toxic gastroenteritis and colitis; T45.1X5A - Adverse effect of antineoplastic and immunosuppressive drugs, initial encounter Plan Complicated urinary tract infection (CAUTI, possible stent-related) * Guthrie changed * abx w pip/tazo * CT showed bilateral hydroneprhosis and hydroureter down to the level of the bladder with bilateral double-J stents. * performed cystoscopy and bilateral stent change on 04/03 * Cultures showing Proteus vulgaris and possible Pseudomonas. DW Microbiology, they said they should have the results of the Pseudomonas in the AM on 04/07. * DW patient and told him I would need him to stay until tomorrow to see the final results of the UCx so that I may dc him with the appropriate PO abx. I also told him I could not exclude and MDRO that would require IV abx. MEAGAN ruled out. Creatinine similar to back in February. Chemo induced diarrhea * Patient has been holding Xtandi for the last several days so his diarrhea has resolved * Hold home loperamide since he is not taking the medication however he reports it has been resistant to every measure given to him by oncology * Patient reports stool is slowly getting hard Hypokalemia * improved with replacement. Debility * PT OT eval and treat Metastatic prostate cancer * Follows with Dr. Gonzales * hold Xtandi due to diarrhea and encouraged patient to have further discussion with Dr. Gonzales at next visit as patient states it has been refractory to everything they have given him to decrease his diarrhea * last chemotherapy with docetaxel on 11/13 Chronic conditions: * HTN: amlodipine and losartan held for now. Continue hydralazine * HLP: continue statin * Essential hypertension/hyperlipidemia * DM2: metformin held. Stable. Expectant mgmt. VTE prophylaxis: enoxaparin. Disposition: Waiting on final urine culture result (which are just growing gram- negative rods at this time) if it has something amenable to oral antibiotics. Greater than 40 minutes of which greater than 50% of time was at the bedside, discussing microbiology test and that this is taking longer because he found a second organism after the first and that just restart the whole process. I told him that he would benefit from staying in the hospital until those results are finalized so that I can send him home with either the correct oral antibiotic or if multidrug-resistant organism may require IV antibiotics. Medications at Discharge Home Medications losartan 100 mg tablet 100 mg PO DAILY bp 06/01/13 metoprolol succinate 100 mg tablet,extended release 24 hr 100 mg PO DAILY bp 06/01/13 rosuvastatin 5 mg tablet 5 mg PO DAILY CHOLESTEROL 12/16/21 amlodipine 10 mg tablet 10 mg PO DAILY BP 01/07/23 hydralazine 25 mg tablet 25 mg PO TID 30 days #90 tabs 03/23/23 lidocaine-prilocaine 2.5 %-2.5 % topical cream 1 applic topical ONCE PRN port access 30 days #30 grams 01/09/24 omeprazole 20 mg capsule,delayed release 20 mg PO DAILY #30 caps 01/09/24 prednisone 5 mg tablet 5 mg PO BID #60 tabs 03/14/24 loperamide 2 mg capsule (Imodium A-D) 2 mg PO Q6H PRN loose stool 03/22/24 ondansetron HCl 8 mg tablet 8 mg PO Q8H #30 tabs 03/28/24 prochlorperazine maleate 10 mg tablet (Compazine) 10 mg PO Q6H PRN nausea and vomiting #30 tabs 03/28/24 levofloxacin 750 mg tablet 750 mg PO DAILY #2 tabs 04/07/24 Hospital Course Operations - (Cystoscopy with stent exchange.) Summary of Care Provided Minutes Spent on Discharge: 32 Hospital Course: Patient presents with a complicated urinary tract infection due to catheter associate urinary tract fraction is possible stent related. Patient had a catheter changed over as well as stents replaced on cystoscopy. Culture grew out Proteus and Pseudomonas. Patient is already completed 5 days of antibiotics of discharged with 2 more days of levofloxacin as both those agents are sensitive to that. Patient did have chemo induced diarrhea that is since improved. Patient follow-up with his oncologist as outpatient. Weight / BMI Weight Weight: 74.7 kg Body Mass Index (BMI) 23.6 ABG / Lab / Microbiology Data 04/05/24 06:32 04/05/24 06:32 Microbiology: Microbiology 04/02/24 12:31 Urine Catheter - Catheter Urine Culture - Final Proteus vulgaris Pseudomonas aeruginosa 04/02/24 14:18 Mucosa - Nasopharyngeal Respiratory Panel (PCR) - Final D/C Instructions Discharge Diet: No restrictions DC O2, CPAP, BIPAP Needs Additional Home O2 Discharge instructions: No DC home with Oxygen: No Meaningful Use Info Meaningful Use Meaningful Use Diagnoses (Choose all that apply): None applicable Ischemic Stroke Statin Dosing Therapy Reference: STATIN DOSE THERAPY REFERENCE: * Patients > 75 years receive moderate or high dose statin therapy. * Patients 75 years or YOUNGER should receive HIGH intensity statin dose unless contraindicated. You will be required to document reason for non-treatment if statin daily dose does not meet guidelines. HIGH DOSE STATIN THERAPY DAILY Atorvastatin > than or = to 40 mg Rosuvastatin > than or = to 20 mg Amlodipine + Atorvastatin > than or = to 2.5/40 mg Ezetimibe + Simvastatin 10/80 mg Simvastatin 80mg Discharge Plan Admission Admit Date/Time: 04/02/24 14:57 Primary Reason for Your Visit: urinary tract infection. Attending Provider: Hamzah Bob Primary Care Provider: Rigo Izaguirre Consulting Providers: Siddharth Navarro; Karolina Paz Discharge Orders/Prescriptions Prescriptions: New levofloxacin 750 mg tablet 750 mg PO DAILY Qty: 2 0RF Continued amlodipine 10 mg tablet 10 mg PO DAILY loperamide [Imodium A-D] 2 mg capsule 2 mg PO Q6H PRN (Reason: loose stool) ondansetron HCl 8 mg tablet 8 mg PO Q8H Qty: 30 2RF prochlorperazine maleate [Compazine] 10 mg tablet 10 mg PO Q6H PRN (Reason: nausea and vomiting) Qty: 30 2RF metoprolol succinate 100 MG tablet 100 mg PO DAILY losartan 100 MG tablet 100 mg PO DAILY Patient Comments: BP rosuvastatin 5 mg tablet 5 mg PO DAILY hydralazine 25 mg Tablet 25 mg PO TID 30 Days Qty: 90 0RF lidocaine-prilocaine 2.5-2.5 % cream 1 applic topical ONCE PRN (Reason: port access) 30 Days Qty: 30 2RF omeprazole 20 mg capsule,delayed release(DR/EC) 20 mg PO DAILY Qty: 30 1RF prednisone 5 mg tablet 5 mg PO BID Qty: 60 3RF Discontinued abiraterone 500 mg tablet 1,000 mg PO DAILY potassium chloride 20 mEq tablet,ER particles/crystals 40 meq PO DAILY 30 Days Qty: 60 0RF metformin 500 MG tablet 500 mg PO DAILY Referrals / Follow Up: Siddharth Navarro MD [Med Staff - Active Staff] - Within 1 Month Rigo Izaguirre MD [Primary Care Provider] - Within 2 Weeks Disposition Disposition (needs filled in before D/C Order can be placed): Home, Self Care Charges/Coding Visit Charges Inpatient E&M: 50600 Disch Hosp >30min
[2024-04-07] MEDS: 0.9 % NaCl (Sterile) Posiflush 10 mL IV (14:10)
== END 2024-04-07 14:27 | disposition home or self-care (01) | DRG 660 ==
LOC: ED 13:56 → MS3 14:25
PROVIDERS: Urology; Admitting Provider Internal Medicine; Emergency Provider Emergency Medicine; PCP Family Medicine
PROC: 0T788DZ Dilation of Bilateral Ureters with Intraluminal Device, Via Natural or Artificial Opening Endoscopic (ICD-10-PCS; CPT 52332; principal; 2024-04-03 10:50)
DX: T83.511A Infection and inflammatory reaction due to indwelling urethral catheter, initial encounter (principal); N13.6 Pyonephrosis; C78.7 Secondary malignant neoplasm of liver and intrahepatic bile duct; K52.1 Toxic gastroenteritis and colitis; B96.4 Proteus (mirabilis) (morganii) as the cause of diseases classified elsewhere; Z66 Do not resuscitate; N18.31 Chronic kidney disease, stage 3a; E11.22 Type 2 diabetes mellitus with diabetic chronic kidney disease; I12.9 Hypertensive chronic kidney disease with stage 1 through stage 4 chronic kidney disease, or unspecified chronic kidney disease; D63.0 Anemia in neoplastic disease; Z93.3 Colostomy status; E78.00 Pure hypercholesterolemia, unspecified; E87.6 Hypokalemia; C61 Malignant neoplasm of prostate; X58.XXXA Exposure to other specified factors, initial encounter; T45.1X5A Adverse effect of antineoplastic and immunosuppressive drugs, initial encounter; B96.5 Pseudomonas (aeruginosa) (mallei) (pseudomallei) as the cause of diseases classified elsewhere; R53.81 Other malaise; Z90.49 Acquired absence of other specified parts of digestive tract; Z79.52 Long term (current) use of systemic steroids; Z79.84 Long term (current) use of oral hypoglycemic drugs; Z79.899 Other long term (current) drug therapy; Z85.048 Personal history of other malignant neoplasm of rectum, rectosigmoid junction, and anus; Z86.16 Personal history of COVID-19
CPT/HCPCS: 36415; 36591; 36600; 71046; 74176; 76000; 80048; 80053; 81001; 82803; 83605; 83735; 84100; 85025; 87077; 87086; 87088; 87186; 87633; 93005; 94668; 97116; 97162; 97166; 97530; 97535; 99285; J7030; J7040; J7120; A4216; C1769; C2617; J0696; J2405

== ENCOUNTER → 2024-05-08 | Outpatient (CLI) | payer MEDICARE, OTHER, SELFPAY ==
--- NOTE | 2024-05-08 12:35 | CT_ITS ---
STUDY: CT ABDOMEN AND PELVIS WITH CONTRAST REASON FOR EXAM: Male, 79 years old. PROSTATE CA RADIATION DOSAGE (If Supplied By Facility): CTDIvol = ( 11.82 ) mGy, DLP = ( 558.85 ) mGycm TECHNIQUE: Transaxial images were obtained from the dome of the diaphragm to the symphysis pubis without oral contrast. IV 100mL Isovue-300 was administered. Sagittal and coronal images were reconstructed. Individualized dose optimization techniques were used for this CT. COMPARISON: April 02, 2024. FINDINGS: The visualized lung bases are unremarkable. The visualized portions of the heart are within normal limits. Multiple lesions are noted within the liver likely metastasis measuring up to 5.8 cm. Status post cholecystectomy. There is dilatation of the biliary system. Normal spleen. Normal pancreas. Normal bilateral adrenal glands. 6 cm cyst in the right kidney. Atrophic left kidney. Bilateral ureteral stents in place. Bilateral ureteral wall thickening. Normal visualized stomach. Normal small intestine. Prior surgery of the colon. The appendix is nonvisualized. Normal abdominal aorta. Normal inferior vena cava. There is adenopathy in the left retroperitoneum. Guthrie catheter in the urinary bladder with diffuse wall thickening. There is a presacral 4.7 x 3.8 x 4.4 cm possible collection or masslike density. Fatty density in the inguinal canals. There is a colostomy through the left anterior abdominal wall. Degenerative vertebral changes. Degenerative changes of the hips. CT/Abdomen/Pelvis W IV Cont ONLY IMPRESSION: Diffuse hepatic metastasis. Right renal cyst. Atrophic left kidney. Bilateral ureteral stents in place. Bilateral ureteral wall thickening. Guthrie catheter in the urinary bladder with diffuse wall thickening. There is a presacral relative stable collection or masslike density. Left worsening retroperitoneal adenopathy. Electronically Signed: Joaquín Dutton DO at 15:14 EST ,
[2024-05-08] MEDS: 0.9 % NaCl (Sterile) Posiflush 10 mL IV (12:55)
[2024-05-08] MEDS: 0.9% Saline Lock 10 ML Syringe IV (13:05)
== END | disposition home or self-care (01) ==
LOC: CT 12:34
PROVIDERS: PCP Family Medicine; Referring Provider Internal Medicine Medical Oncology; Visit Provider Internal Medicine Medical Oncology
DX: C61 Malignant neoplasm of prostate (principal)
CPT/HCPCS: 74177; Q9967; A4216

== ENCOUNTER 2024-06-26 16:21 | Inpatient (IN) | payer MEDICARE, OTHER, SELFPAY ==
[2024-06-26] VITALS (11 sets, daily range): BP systolic 144–173; BP diastolic 64–100; PULSE 88–104; RESP 20–28; TEMP 36.5–37.5; O2SAT 89–98; BMI 22.6
--- NOTE | 2024-06-26 16:55 | EKG12_ITS ---
Test Reason : Blood Pressure : */* mmHG Vent. Rate : 108 BPM Atrial Rate : 108 BPM P-R Int : 118 ms QRS Dur : 122 ms QT Int : 350 ms P-R-T Axes : 66 251 44 degrees QTcB Int : 469 ms Sinus tachycardia Right bundle branch block Abnormal ECG Confirmed by Messi Lopez ([id number]), technical writer and editor [employer] ([id number]) on 06/27/2024 11:24:54 AM Referred By: Confirmed By: Messi Lopez
--- NOTE | 2024-06-26 17:05 | RAD_ITS ---
PROCEDURE: CHEST 1 VIEW (PORTABLE) REASON FOR EXAM: 79-year-old male, cough. TECHNIQUE: Frontal view of the chest. COMPARISON: Chest radiograph 04/02/2024. FINDINGS: Left chest port remains in place with tip terminating in the right atrium. The superior aspect of the catheter appears coiled within the left internal jugular vein, new since prior examination. The heart size is normal. The lungs are clear. No focal consolidation, pleural effusion or pneumothorax. Degenerative changes are identified within the thoracic spine and bilateral shoulder joints. RAD/Chest 1 View (Portable) IMPRESSION: 1. No acute finding. 2. Partially coiled port catheter within the lower neck. Correlation with port functioning recommended. Reading Location: [id number]
[2024-06-26 17:16] LABS: Absolute Lymphocyte Count 0.41 X10^3/uL (0.83-4.51); Absolute Neutrophil Count 6.1 X10^3/uL (2.0-7.7); Basophil# 0.01 X10^3/uL; Basophil% 0.1 % (0-1); Hematocrit 39.4 % (40-54); Hemoglobin 12.4 g/dL (13.0-16.5); Lymphocyte # 0.41 X10^3/ul (0.83-4.51); Lymphocyte % 5.8 % (19-41); Mean Corp Hgb Conc 31.5 g/dL (32-36); Mean Corpuscular Hgb 27.1 pg (27.0-32.0); Mean Corpuscular Volume 86.2 fL (80-94); Mean Platelet Vol. 9.7 fl (6.2-12.0); Monocyte# 0.58 X10^3/uL; Monocyte% 8.1 % (0-10); NRBC Flagged by Analyzer 0 % (0-5); Neutrophil # 6.09 X10^3/uL (2.7-7.7); POSITIVE DIFFERENTIAL YES; Platelet Count 122 K/mm3 (150-450); RBC Distribution Width CV 16.2 % (11.6-14.6); RBC Distribution Width SD 50.5 fl (35.1-43.9); Red Blood Count 4.57 M/mm3 (4.6-6.2); White Blood Count 7.1 K/mm3 (4.4-11.0)
[2024-06-26 17:21] LABS: Neutrophil % 85.6 % (47-70)
[2024-06-26] MEDS: 0.9% Normal Saline (1000mL) 1,000 ML 1000 ML IV (17:25)
[2024-06-26 17:42] LABS: ALB/GLOB Ratio 0.7 RATIO (0.9-2.4); AST(SGOT) 70 U/L (15-37); Alanine Aminotransfer ALT/SGPT 62 U/L (16-61); Albumin, Serum 2.6 g/dL (3.2-5.0); Alkaline Phosphatase 132 U/L (45-117); Anion Gap 10 (5-15); BUN 28 mg/dL (7-18); BUN/Creat Ratio 18.8 RATIO (10-20); Chloride 108 mmol/L (98-107); Creatinine, Serum 1.49 mg/dL (0.70-1.30); EST Glomerular Filtration Rate 48 mL/min (>60); Est Glom Filt Rate - Afr Amer 58 mL/min (>60); Estimated Creatinine Clearance 39.43 ml/min; Globulin 3.6 g/dL (2.2-4.2); Glucose 147 mg/dL (74-106); Potassium 3.7 mmol/L (3.5-5.1); Protein, Total 6.2 g/dL (6.4-8.2); Sodium Level 139 mmol/L (136-145)
[2024-06-26 18:01] LABS: Mucous, Urine 0 SEEN /hpf (<or=2+); Squamous Epithelial Cells - UA 0 SEEN /hpf (0-5)
--- NOTE | 2024-06-26 18:04 | ED.RN ---
pt does not know home medications and does not have a list.
[2024-06-26 18:11] LABS: Color, Urine Yellow (Yellow); Glucose, Dipstick Normal (Normal); Ketone-Dipstick Negative (Negative); Leukocyte Esterase-Dipstick 500 /ul (Negative); Nitrite-Dipstick Negative (Negative); Occult Blood-Urine 50 /ul (Negative); Protein-Dipstick 500 mg/dl (Negative); Urine Bilirubin Dipstick Negative (Negative); Urine Clarity Cloudy (Clear); Urine Urobilinogen Normal (Normal)
--- NOTE | 2024-06-26 18:53 | EX.ED.DYSGE1 ---
HPI History of Present Illness Chief Complaint: Weakness Detail of Chief Complaint: Generalized weakness unable to rise from couch or bed Informant: patient Onset/Context/Timing Onset: Yesterday Context: Sudden Onset Timing: Continuous Quality: Congestion, cough, weakness Location: Predominately respiratory Current Severity: Mild Maximum Severity: Moderate Worsened by: Nothing Relieved by: Nothing Associated Symptoms Associated Symptoms: Patient had problems with Guthrie and colostomy because he was unable to rise Narrative Narrative: Patient presents by EMS because of generalized weakness unable to get up or care for himself. He was unable to rise to empty his Guthrie bag or colostomy bag. The colostomy bag detach from his abdomen because it was overflowing with fecal matter and patient arrived with fecal matter over his abdomen and lower extremities. Patient complains of subjective fever and aches. He patient states he feels terrible. Patient had runny nose for several years. It is worse over the past 24 to 48 hours. He does have a cough. 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 Dr. Jordan Gonzales is changing his chemo regimen. Discussed CODE STATUS. Patient states he wants 1-2 rounds to see if he can stay alive. Prior similar symptoms: No Recent Illness/Hospitalization: No PFSH PFS Medical History 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 Generalized weakness CINV (chemotherapy-induced nausea and vomiting) 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 Anemia Edema of both lower legs Prerenal azotemia Diarrhea due to drug Encounter for education Elevated PSA Torn meniscus Chronic pain COVID History of Clostridium difficile infection Indwelling urethral catheter present Diabetes Gout High cholesterol Non-smoker History of anal cancer Cancer HTN (hypertension) Home Medications ?Medication ?Instructions ?Recorded ?Last Taken ?Type losartan 100 mg tablet 100 mg PO DAILY bp 06/01/13 01/09/24 History metoprolol succinate 100 mg 100 mg PO DAILY bp 06/01/13 01/09/24 History tablet,extended release 24 hr rosuvastatin 5 mg tablet 5 mg PO DAILY CHOLESTEROL 12/16/21 03/04/23 History amlodipine 10 mg tablet 10 mg PO DAILY BP 01/07/23 01/09/24 History hydralazine 25 mg tablet 25 mg PO TID 30 days #90 tabs 03/23/23 Unknown Rx lidocaine-prilocaine 2.5 %-2.5 % 1 applic topical ONCE PRN port 01/09/24 Unknown Rx topical cream access 30 days #30 grams loperamide 2 mg capsule (Imodium 2 mg PO Q6H PRN loose stool 03/22/24 Unknown History A-D) ondansetron HCl 8 mg tablet 8 mg PO Q8H #30 tabs 03/28/24 Unknown Rx prochlorperazine maleate 10 mg 10 mg PO Q6H PRN nausea and 03/28/24 Unknown Rx tablet (Compazine) vomiting #30 tabs prednisone 5 mg tablet 5 mg PO BID 30 days #60 tabs 05/10/24 Unknown Rx potassium chloride 20 mEq 20 meq PO DAILY 30 days #30 tabs 05/28/24 Unknown Rx tablet,extended release(part/cryst) Allergy/AdvReac Type Severity Reaction Status Date / Time hydromorphone (From Dilaudid) AdvReac Other Verified 06/26/24 16:28 meperidine (From Demerol) AdvReac Nausea/Vom/ Verified 06/26/24 16:28 Diarrhea Family History Father Myocardial infarction Surgical History Hx of colectomy History of total left knee replacement S/P total knee arthroplasty Hx of cystoscopy Hx of left knee surgery Hx of cystoscopy Hx of cystoscopy Hx of cystoscopy (~05/28/20) Hx of cystoscopy (~01/23/20) Hx of dilation of urethra Hx of cystoscopy Hx of cystoscopy Hx of cystoscopy History of removal of Port-a-Cath Hx of colonoscopy Hx of cataract surgery History of back surgery History of cholecystectomy History of appendectomy Social History household members: spouse Smoking Status: Never smoker alcohol intake: never substance use type: does not use ROS ROS ED Constitutional Constitutional ED: Reports chills, fever(s) and subjective; Denies sweats or weight loss Eyes Eyes: Denies blurry vision, change in vision or diplopia ENT ENT ED: Denies ear pain, rhinorrhea or sore throat Cardiovascular Cardiovascular: Denies chest pain, orthopnea, palpitations, paroxysmal nocturnal dyspnea or racing heartbeat Respiratory/Chest Respiratory/Chest: Reports cough and dyspnea; Denies dyspnea on exertion, orthopnea or paroxysmal nocturnal dyspnea Gastrointestinal Gastrointestinal: Reports nausea; Denies abdominal pain or vomiting Genitourinary Genitourinary ED: Denies dysuria, hematuria or urinary frequency Musculoskeletal Musculoskeletal: Reports arthralgias and myalgias Integumentary Denies abscess, Abrasions or rash Neurologic Neurologic: Reports weakness; Denies paresthesias Endocrine Endocrinology: Denies cold intolerance or heat intolerance Hematologic/Lymphatic Hematologic/Lymphatic: Reports systems reviewed and no addt'l complaints, except as documented EXAM Physical Exam Const Vital Signs: 06/26/24 16:23 06/26/24 16:26 06/26/24 16:29 Temperature 98 F 98 F Temperature Source Oral Oral Pulse Rate 103 H 104 H Respiratory Rate 23 H 21 H Respiratory Effort Normal Respiratory Pattern Normal Blood Pressure 149/78 H 149/78 H Blood Pressure Mean 101 101 Pulse Ox 90 89 Oxygen Delivery Method Room Air Room Air Oxygen Flow Rate (L/min) 06/26/24 17:26 06/26/24 18:00 06/26/24 19:00 Temperature 98 F 97.7 F L 97.9 F Temperature Source Oral Oral Oral Pulse Rate 97 100 100 Respiratory Rate 23 H 23 H 23 H Respiratory Effort Respiratory Pattern Blood Pressure 144/100 H 169/73 H 169/73 H Blood Pressure Mean 114 105 105 Pulse Ox 97 97 98 Oxygen Delivery Method Nasal Cannula Nasal Cannula Oxygen Flow Rate (L/min) 2 2 06/26/24 20:00 06/26/24 20:00 06/26/24 20:19 Temperature 98.2 F 98.2 F Temperature Source Temporal Pulse Rate 94 93 92 Respiratory Rate 25 H 24 H 20 H Respiratory Effort Respiratory Pattern Blood Pressure 166/76 H 166/76 H 166/76 H Blood Pressure Mean 106 106 106 Pulse Ox 96 94 97 Oxygen Delivery Method Oxygen Flow Rate (L/min) Positive well nourished and well developed Constitutional Narrative: Patient does not look well. His vitals are remarkable for tachycardia and tachypnea. He is hypoxic. General Appearance ED: well developed and pallor HEENT Reports dry mucous membranes HEENT Narrative: Head is atraumatic no cephalic. Ears normal. Nares patent with clear discharge. Posterior pharynx out erythema or exudate. Mouth ED: Yes dry mucous membranes Mouth: dry mucous membranes Eyes PERRL and EOMs intact bilaterally Neck no lymphadenopathy, supple and no JVD Resp normal respiratory effort and No clear to auscultation bilaterally Auscultation: rales bilateral base Cardio regular rate, regular rhythm, S1 normal heart sound, S2 normal heart sound and no murmurs GI normal to inspection, nondistended, normoactive bowel sounds, non-tender, non-distended and no masses; Negative for hepatosplenomegaly Palpation: soft Back/Spine no CVA tenderness Extremity Extremity Narrative: Patient has stigmata of peripheral arterial disease. He has a palpable DP pulse on the left. He has a palpable PT pulse on the right. He is edema of both feet. General Extremety ED: Yes edema General Extremity: edema Neuro oriented x3 and CN's II-XII intact bilaterally Neuro Narrative: He is awake but not alert. Sensorium / Orientation: Negative for alert Skin no rashes or lesions noted, no wounds and No skin turgor normal General Skin Exam: pallor; Negative for elasticity normal or jaundice MDM MDM MDM Narrative Medical decision making narrative: Differential diagnosis would include COVID, influenza, pneumonia failure to thrive and debility due to his metastatic prostate cancer. Since he appears pale obtain CBC to assess H&H as well as white count. Competence of metabolic panel to assess for any endorgan dysfunction. UA to rule out urinary tract infection. Rapid antigen for COVID, influenza and RSV was obtained. Lab Data Attestation: I reviewed the patient's lab results. Lab results narrative: White count is remarkable for mild anemia and unchanged from baseline. BUN and creatinine are 28 and 1.49 which is approximately patient's baseline. Glucose is elevated 147 with normal CO2 anion gap. AST ALT and alk phos are elevated most likely due to his metastatic prostate cancer to liver. Urinalysis reveals UTI with greater than 100 WBCs and 3+ bacteria. Will send culture. Rapid antigen was positive for influenza A. Labs: Laboratory Results - last 24 hr 06/26/24 06/26/24 17:00 17:53 WBC 7.1 RBC 4.57 L Hgb 12.4 L Hct 39.4 L MCV 86.2 MCH 27.1 MCHC 31.5 L RDW Std Deviation 50.5 H RDW Coeff of [place] 16.2 H Plt Count 122 L MPV 9.7 Immature Gran % (Auto) 0.400 Neut % (Auto) 85.6 H Lymph % (Auto) 5.8 L [place] % (Auto) 8.1 Eos % (Auto) 0.0 Baso % (Auto) 0.1 Absolute Neuts (auto) 6.1 Absolute Lymphs (auto) 0.41 L Nucleated RBC % 0 Sodium 139 Potassium 3.7 Chloride 108 H Carbon Dioxide 21.0 Anion Gap 10 BUN 28 H Creatinine 1.49 H Estim Creat Clear Calc 39.43 Est GFR (MDRD) Af Amer 58 L Est GFR (MDRD) Non-Af 48 L BUN/Creatinine Ratio 18.8 Glucose 147 H Calcium 9.0 Total Bilirubin 0.80 AST 70 H ALT 62 H Alkaline Phosphatase 132 H Total Protein 6.2 L Albumin 2.6 L Globulin 3.6 Albumin/Globulin Ratio 0.7 L Urine Color Yellow Urine Clarity Cloudy Urine pH 7.0 Ur Specific [place] 1.010 Urine Protein 500 H Urine Glucose (UA) Normal Urine Ketones Negative Urine Occult Blood 50 H Urine Nitrite Negative Urine Bilirubin Negative Urine Urobilinogen Normal Ur Leukocyte Esterase 500 H Urine RBC 0-5 SEEN Urine WBC >100 SEEN Ur Squamous Epith Cells 0 SEEN Urine Bacteria 3+ Urine Mucus 0 SEEN Radiography Diagnostic Testing: Clinical Impression(s) from Imaging Studies Chest X-Ray 06/26/24 17:05 IMPRESSION: 1. No acute finding. 2. Partially coiled port catheter within the lower neck. Correlation with port functioning recommended. Reading Location: [facility] EKG Initial EKG: Attestation: I personally reviewed and interpreted this EKG as follows: Interpretation: Sinus Tachycardia (Sinus tachycardia of 108 with right bundle branch block. MN interval 218 ms. Cures duration 122 ms. QT duration 350 ms. [place] is normal.) Management Discussion w/another healthcare provider: Hospitalist (Spoke with Dr. Star Garrett. Patient history physical results and treatment was discussed. Full admit MedSurg) Treatment and Re-Evaluation :: Since patient has evidence of UTI culture was obtained and Rocephin was ordered. Will contact hospitalist for admission Discharge Plan Dx/Rx/DC Orders Clinical Impression: Complicated UTI (urinary tract infection), Edema of both lower legs, Anemia, 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, Influenza A, Physical debility, Chronic kidney disease (CKD), Sinus tachycardia by electrocardiography Disposition Disposition: Acute Care Hospital [facility]
[2024-06-26 18:54] LABS: Bacteria 3+ /hpf (None Seen); Red Blood Cells-Urine 0-5 SEEN /hpf (0-5); White Blood Cells >100 SEEN /hpf (0-5)
[2024-06-26] MEDS: Ceftriaxone 1 GM/50 ML BAG IV (19:39)
--- NOTE | 2024-06-26 20:32 | PCM.HP.STD ---
[facility] - General General Date of Admission: 06/26/24 Date of Service: 06/26/24 Chief Complaint: Generalized Weakness, Runny Nose and Cough. HPI Narrative VILMA SMITH, is a 79 M with a past medical history of essential hypertension; on metoprolol, hydralazine, losartan and amlodipine, hyperlipidemia; on rosuvastatin, history of prostate cancer; with metastatic spread to liver followed by Dr. Jordan Gonzales of the oncology service with recent change to his chemotherapeutic regimen given via Left chest port, history of bilateral hydronephrosis due to ureteric obstruction, CKD; stage IIIa, history of anal cancer with bowel obstruction (2022); s/p colectomy with subsequent colostomy, chemotherapy and radiation, chronic anemia, history of UTI, history of COVID-19 (2019), history of C. difficile colitis (2020), history of cholecystectomy, history of appendectomy, history of cataract surgery, history of back surgery L2-L3 x 2, gout and OA; with DJD of the Left knee causing chronic stiffness; s/p Left TKR and chronic debility who presents to [facility] ER complaining of generalized weakness, runny nose and cough. Mr. Smith reports his symptoms began approximately 2 days prior to admission with a gradual-onset of generalized weakness, malaise and congested cough with subjective fever and chills. Earlier today he noted he was unable to get up or care for himself with patient having overflow from both his Guthrie bag and colostomy bag causing sudden detachment and overflowing with fecal matter covering his abdomen and lower extremities. He also admits to subjective fever and generalized body aches and states overall he feels terrible. He admits to nausea but he denies vomiting, abdominal pain, diarrhea or constipation. He additionally denies dysuria, hematuria, urinary frequency, rash or headache. Patient wants to be Full Code at least through 1-2 rounds of chemotherapy to see if he can stay alive. He denies similar previous episodes of recent hospitalization. In the ER he was noted to have laboratory evidence of Acute Cystitis; without hematuria complicated by recently diagnosed Influenza A both combining to cause Generalized Weakness with Ambulatory Dysfunction in the setting of known chronic metastatic prostate cancer; with impending oral chemotherapy and he was then admitted to the general medical floor for ongoing care for stay that is expected to extend beyond 2 midnights. [facility] Medical History Chronic indwelling Guthrie catheter 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 Generalized weakness CINV (chemotherapy-induced nausea and vomiting) 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 Anemia Edema of both lower legs Prerenal azotemia Diarrhea due to drug Encounter for education Elevated PSA Torn meniscus Chronic pain COVID History of Clostridium difficile infection Indwelling urethral catheter present Diabetes Gout High cholesterol Non-smoker History of anal cancer Cancer HTN (hypertension) Home Medications ?Medication ?Instructions ?Recorded ?Last Taken ?Type losartan 100 mg tablet 100 mg PO DAILY bp 06/01/13 01/09/24 History metoprolol succinate 100 mg 100 mg PO DAILY bp 06/01/13 01/09/24 History tablet,extended release 24 hr rosuvastatin 5 mg tablet 5 mg PO DAILY CHOLESTEROL 12/16/21 03/04/23 History amlodipine 10 mg tablet 10 mg PO DAILY BP 01/07/23 01/09/24 History hydralazine 25 mg tablet 25 mg PO TID 30 days #90 tabs 03/23/23 Unknown Rx lidocaine-prilocaine 2.5 %-2.5 % 1 applic topical ONCE PRN port 01/09/24 Unknown Rx topical cream access 30 days #30 grams loperamide 2 mg capsule (Imodium 2 mg PO Q6H PRN loose stool 03/22/24 Unknown History A-D) ondansetron HCl 8 mg tablet 8 mg PO Q8H #30 tabs 03/28/24 Unknown Rx prochlorperazine maleate 10 mg 10 mg PO Q6H PRN nausea and 03/28/24 Unknown Rx tablet (Compazine) vomiting #30 tabs potassium chloride 20 mEq 20 meq PO DAILY 30 days #30 tabs 05/28/24 Unknown Rx tablet,extended release(part/cryst) Allergy/AdvReac Type Severity Reaction Status Date / Time hydromorphone (From Dilaudid) AdvReac Other Verified 06/26/24 16:28 meperidine (From Demerol) AdvReac Nausea/Vom/ Verified 06/26/24 16:28 Diarrhea Family History Father Myocardial infarction Surgical History Hx of colectomy History of total left knee replacement S/P total knee arthroplasty Hx of cystoscopy Hx of left knee surgery Hx of cystoscopy Hx of cystoscopy Hx of cystoscopy (~05/28/20) Hx of cystoscopy (~01/23/20) Hx of dilation of urethra Hx of cystoscopy Hx of cystoscopy Hx of cystoscopy History of removal of Port-a-Cath Hx of colonoscopy Hx of cataract surgery History of back surgery History of cholecystectomy History of appendectomy Social History household members: spouse Smoking Status: Never smoker alcohol intake: never substance use type: does not use ROS ROS Narrative Review of Systems: Patient admits to subjective fever and chills. Eyes: Patient denies changes in vision or discharge from eyes. ENT: Patient admits to runny nose but denies sore throat or ear pain. Resp: Patient admits to cough and dyspnea on exertion. CV: Patient denies chest pain, palpitations, heart racing or significantly increased lower extremity edema. GI: Patient admits to nausea but denies vomiting, abdominal pain, diarrhea or constipation. : Patient denies dysuria, hematuria or urinary frequency. MSK: Patient admits to arthralgias and myalgias. Skin: Patient denies rash, abscess, wounds or jaundice. Psych: Patient denies symptoms of uncontrolled depression or anxiety. Neuro: Patient denies headache, paresthesias or focal neurologic deficits. Allergy: Patient denies lip swelling, tongue swelling or urticaria. Hematology: Patient denies easy bleeding or easy bruisability. Endocrinology: Patient denies polyuria, polydipsia or polyphagia. 14 point review of systems otherwise negative save for positives noted above in HPI. Vital Signs Vital Signs Vital Signs: 06/26/24 16:23 06/26/24 16:26 06/26/24 16:29 Temperature 98 F 98 F Temperature Source Oral Oral Pulse Rate 103 H 104 H Respiratory Rate 23 H 21 H Respiratory Effort Normal Respiratory Pattern Normal Blood Pressure 149/78 H 149/78 H Blood Pressure Mean 101 101 Pulse Ox 90 89 Oxygen Delivery Method Room Air Room Air Oxygen Flow Rate (L/min) 06/26/24 17:26 06/26/24 18:00 06/26/24 19:00 Temperature 98 F 97.7 F L 97.9 F Temperature Source Oral Oral Oral Pulse Rate 97 100 100 Respiratory Rate 23 H 23 H 23 H Respiratory Effort Respiratory Pattern Blood Pressure 144/100 H 169/73 H 169/73 H Blood Pressure Mean 114 105 105 Pulse Ox 97 97 98 Oxygen Delivery Method Nasal Cannula Nasal Cannula Oxygen Flow Rate (L/min) 2 2 06/26/24 20:00 06/26/24 20:00 06/26/24 20:19 Temperature 98.2 F 98.2 F Temperature Source Temporal Pulse Rate 94 93 92 Respiratory Rate 25 H 24 H 20 H Respiratory Effort Respiratory Pattern Blood Pressure 166/76 H 166/76 H 166/76 H Blood Pressure Mean 106 106 106 Pulse Ox 96 94 97 Oxygen Delivery Method Oxygen Flow Rate (L/min) Weight Weight: 158 lb 1.143 oz Body Mass Index (BMI) 22.6 Physical Exam Const alert, oriented x3 and average body habitus Constitutional Narrative: Patient noted to be tachycardic and mildly tachypneic along with hypoxia. General Appearance: cooperative HEENT normocephalic, head/scalp atraumatic and hearing grossly normal bilaterally HEENT Narrative: Mucous membranes dry. Eyes PERRL, EOMs intact bilaterally and conjunctivae normal Neck no lymphadenopathy and supple Resp Resp Narrative: Diminished breath sounds throughout with bibasilar rales. Auscultation: rales Cardio regular rate and regular rhythm Cardio Narrative: Regular tachycardia at ~106 bpm noted. GI normal to inspection, nondistended, normoactive bowel sounds, soft to palpation, non-tender and non-distended GI Narrative: Colostomy bag in place. Extremity normal to inspection and full ROM Extremity Narrative: Patient has mild edema both feet. Neuro oriented x3, CN's II-XII intact bilaterally, moves all extremities and no focal motor deficits Sensorium / Orientation: awake, alert, oriented to person, oriented to place and oriented to time Speech: speech normal Psych affect normal Results Medical Records Data Attestation: I reviewed the patient's medical records Lab / Micro Data Attestation: I reviewed the patient's lab results. 06/27/24 04:24 06/27/24 04:24 Labs: Laboratory Results - last 24 hr 06/26/24 17:00: WBC 7.1, RBC 4.57 L, Hgb 12.4 L, Hct 39.4 L, MCV 86.2, MCH 27.1, MCHC 31.5 L, RDW Std Deviation 50.5 H, RDW Coeff of Edmar 16.2 H, Plt Count 122 L, MPV 9.7, Immature Gran % (Auto) 0.400, Neut % (Auto) 85.6 H, Lymph % (Auto) 5.8 L, [place]in[place] % (Auto) 8.1, Eos % (Auto) 0.0, Baso % (Auto) 0.1, Absolute Neuts (auto) 6.1, Absolute Lymphs (auto) 0.41 L, Nucleated RBC % 0, Sodium 139, Potassium 3.7, Chloride 108 H, Carbon Dioxide 21.0, Anion Gap 10, BUN 28 H, Creatinine 1.49 H, Estim Creat Clear Calc 39.43, Est GFR (MDRD) Af Amer 58 L, Est GFR (MDRD) Non-Af 48 L, BUN/Creatinine Ratio 18.8, Glucose 147 H, Calcium 9.0, Total Bilirubin 0.80, AST 70 H, ALT 62 H, Alkaline Phosphatase 132 H, Total Protein 6.2 L, Albumin 2.6 L, Globulin 3.6, Albumin/Globulin Ratio 0.7 L 06/26/24 17:53: Urine Color Yellow, Urine Clarity Cloudy, Urine pH 7.0, Ur Specific Arma 1.010, Urine Protein 500 H, Urine Glucose (UA) Normal, Urine Ketones Negative, Urine Occult Blood 50 H, Urine Nitrite Negative, Urine Bilirubin Negative, Urine Urobilinogen Normal, Ur Leukocyte Esterase 500 H, Urine RBC 0-5 SEEN, Urine WBC >100 SEEN, Ur Squamous Epith Cells 0 SEEN, Urine Bacteria 3+, Urine Mucus 0 SEEN Micro: Microbiology 06/26/24 17:26 Mucosa - Nose SARS-CoV-2, Influenza & RSV (PCR) - Final Influenzae A Imaging Radiology Impression Chest X-Ray 06/26/24 17:05 IMPRESSION: 1. No acute finding. 2. Partially coiled port catheter within the lower neck. Correlation with port functioning recommended. Reading Location: [facility] Assessment & Plan Assessment/Plan (1) Acute cystitis without hematuria: (2) Influenza A: (3) Generalized weakness: (4) Ambulatory dysfunction: (5) History of anal cancer: (6) Chemotherapy management, encounter for: (7) 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: (8) Chronic kidney disease (CKD): QUALIFIERS: Chronic kidney disease stage 3 subtype: stage 3a (GFR 45-59) Chronic kidney disease stage: stage 3 (moderate) Qualified Code(s): N18.31 - Chronic kidney disease, stage 3a PLAN: Plan 1. Acute Cystitis; without hematuria in the setting of a known history of UTI - Admit to general medical floor. Continue empiric IV ceftriaxone begun in the ER and await culture and sensitivity data. Give acetaminophen as needed for [id number] (level 1-5/10) pain or fever. Give morphine IV as needed for severe (level 6-10/10) pain. 2. Recently diagnosed Influenza A complicating #1 - Place on droplet and contact precautions and start Tamiflu plus give supplemental vitamin D3, vitamin C and zinc to help boost immunity and hopefully speedy recovery. 3. Generalized Weakness with Ambulatory Dysfunction in the setting of known chronic metastatic prostate cancer; to be started soon on oral chemotherapy compounded #1 & #2 - PT/OT and case management consult and treat on rounds in the a.m. for further recommendations with help appreciated in advance. 4. History of anal cancer with bowel obstruction (2022); s/p colectomy with subsequent colostomy, chemotherapy and radiation adding to the medical complexity of #1 - #3 - Noted. 5. Essential Hypertension; on metoprolol, hydralazine, losartan and amlodipine - Maintain home regimen. 6. Hyperlipidemia; on rosuvastatin - Resume statin as previous. 7. History of bilateral hydronephrosis due to ureteric obstruction - Noted. 8. CKD; stage IIIa - Stable. Check renal indices daily to ensure continued stability. 9. Chronic anemia - Stable with hemoglobin of 12.4 g/dL and MCV of 86.2 fL present on admission. 10. History of COVID-19 (2019) - Noted. 11. History of C. difficile colitis (2020) - Noted with no evidence of recurrence at this time. 12. History of cholecystectomy - Noted. 13. History of appendectomy - Noted. 14. History of cataract surgery - Noted. 15. History of back surgery L2-L3 x 2 - Stable. 16. Gout - Stable with no evidence of acute flare. 17. OA; with DJD of the Left knee causing chronic stiffness; s/p Left TKR and chronic debility - Give acetaminophen prn according to scale noted above. PT/OT to consult this admission. 18. DVT prophylaxis - Lovenox 40 mg sq daily plus SCD's. Total time: Approximately (but not less than) 75 minutes. Charges/Coding Visit Charges Inpatient E&M: 05227 Init Hosp L3
--- NOTE | 2024-06-26 21:52 | NURSING ---
pt doesn't know his home meds. asked patient if there was someone we can call. patient states his but she won't understand because she had a stroke in september.
[2024-06-26] MEDS: 0.9% Saline Lock 10 ML Syringe IV (22:43)
[2024-06-26] MEDS: 0.9% Normal Saline (1000mL) 1,000 ML 70 ML IV (22:43)
[2024-06-26] MEDS: Atorvastatin Calcium 10 MG Tablet PO (23:03)
[2024-06-26] MEDS: hydrALAZINE 25 MG Tablet PO (23:04)
[2024-06-26] MEDS: Lactobacillis Acidophilus 1 CAP PO (23:04)
[2024-06-26] MEDS: Oseltamivir Phosphate 30 MG Capsule PO (23:09)
[2024-06-26] MEDS: guaiFENesin 10 ML UDC (200MG/10ML) 20 ML PO (23:17)
[2024-06-26] MEDS: MELATONIN 3 MG TABLET PO (23:17)
[2024-06-26] MEDS: Ondansetron 4 MG/2 ML Vial IV (23:29)
[2024-06-27] VITALS (22 sets, daily range): BP systolic 114–177; BP diastolic 39–89; PULSE 74–103; RESP 20–28; TEMP 36.4–36.9; O2SAT 88–100; BMI 24.9
[2024-06-27] MEDS: Acetaminophen 325 MG Tablet 650 MG PO (02:59)
--- NOTE | 2024-06-27 03:17 | EKG12_ITS ---
Test Reason : RYTHM CHANGE Blood Pressure : */* mmHG Vent. Rate : 95 BPM Atrial Rate : 95 BPM P-R Int : 142 ms QRS Dur : 128 ms QT Int : 376 ms P-R-T Axes : 70 244 52 degrees QTcB Int : 472 ms Sinus rhythm with frequent Premature ventricular complexes Indeterminate axis Right bundle branch block Abnormal ECG When compared with ECG of 26-Jun-2024 17:11, MANUAL COMPARISON REQUIRED DATA IS UNCONFIRMED Confirmed by Messi Lopez ([id number]), videotape editor TIP HAIR ([id number]) on 06/27/2024 11:29:52 AM Referred By: BE Confirmed By: Messi Lopez
[2024-06-27 04:43] LABS: Absolute Neutrophil Count 4.8 X10^3/uL (2.0-7.7); Basophil# 0.01 X10^3/uL; Basophil% 0.2 % (0-1); Hematocrit 34.9 % (40-54); Hemoglobin 11.1 g/dL (13.0-16.5); Lymphocyte % 7.1 % (19-41); Mean Corp Hgb Conc 31.8 g/dL (32-36); Mean Corpuscular Hgb 27.3 pg (27.0-32.0); Mean Corpuscular Volume 85.7 fL (80-94); Mean Platelet Vol. 10.4 fl (6.2-12.0); Monocyte# 0.39 X10^3/uL; Monocyte% 6.9 % (0-10); NRBC Flagged by Analyzer 0 % (0-5); Neutrophil # 4.83 X10^3/uL (2.7-7.7); Neutrophil % 85.6 % (47-70); POSITIVE DIFFERENTIAL YES; Platelet Count 119 K/mm3 (150-450); RBC Distribution Width CV 16.4 % (11.6-14.6); RBC Distribution Width SD 51.1 fl (35.1-43.9); Red Blood Count 4.07 M/mm3 (4.6-6.2); White Blood Count 5.6 K/mm3 (4.4-11.0)
[2024-06-27 05:08] LABS: ALB/GLOB Ratio 0.7 RATIO (0.9-2.4); AST(SGOT) 68 U/L (15-37); Alanine Aminotransfer ALT/SGPT 55 U/L (16-61); Albumin, Serum 2.2 g/dL (3.2-5.0); Alkaline Phosphatase 108 U/L (45-117); Anion Gap 8 (5-15); BUN 31 mg/dL (7-18); Calcium,Total 8.2 mg/dL (8.5-10.1); Chloride 113 mmol/L (98-107); Creatinine, Serum 1.41 mg/dL (0.70-1.30); EST Glomerular Filtration Rate 51 mL/min (>60); Est Glom Filt Rate - Afr Amer 62 mL/min (>60); Estimated Creatinine Clearance 40.51 ml/min; Globulin 3.2 g/dL (2.2-4.2); Glucose 125 mg/dL (74-106); Magnesium 1.7 mg/dL (1.6-2.6); Phosphorus 3.7 mg/dL (2.5-4.9); Potassium 3.7 mmol/L (3.5-5.1); Protein, Total 5.4 g/dL (6.4-8.2); Sodium Level 142 mmol/L (136-145); Thyroid Stim Hormone (TSH) 0.583 uIU/mL (0.358-3.740)
[2024-06-27] MEDS: 0.9% Saline Lock 10 ML Syringe IV (05:14)
[2024-06-27] MEDS: guaiFENesin 10 ML UDC (200MG/10ML) 20 ML PO ×2 (05:23→20:38)
[2024-06-27] MEDS: hydrALAZINE 25 MG Tablet PO ×2 (05:30→20:39)
[2024-06-27] MEDS: Ascorbic Acid 500 MG Tablet 1000 MG PO ×2 (09:35→18:45)
[2024-06-27] MEDS: Lactobacillis Acidophilus 1 CAP PO ×4 (09:35→20:39)
[2024-06-27] MEDS: amLODIPine 10 MG Tablet PO (09:35)
[2024-06-27] MEDS: Enoxaparin 30 MG/0.3 ML Syringe SC (09:35)
[2024-06-27] MEDS: Losartan Potassium 100 MG Tablet PO (09:35)
[2024-06-27] MEDS: Oseltamivir Phosphate 30 MG Capsule PO ×2 (09:36→20:38)
[2024-06-27] MEDS: Cholecalciferol (Vit D3) 125 MCG CAPSULE (5,000 UNITS) PO (09:36)
[2024-06-27] MEDS: Zinc Sulfate 50 mg zinc (220 mg) ORAL capsule PO (09:36)
[2024-06-27] MEDS: Metoprolol(XL)Succ 100 MG Tablet PO (09:36)
[2024-06-27] MEDS: Potassium Chloride Oral Tablet 20 MEQ PO (09:36)
--- NOTE | 2024-06-27 09:40 | WOUNDNOTE ---
Was consulted by nursing d/t patient having a colostomy. patient currently uses a 2 piece disposable appliance. pt states he brought plenty of bags with him. appliance is intact. no sign of leak. no stool noted in the appliance. pt states he is typically quite self sufficient with the appliances. pt aware to call for needs or if issues arise.
--- NOTE | 2024-06-27 15:15 | CASEMGMT ---
Addendum entered by Rossy Velasco 06/27/24 15:30: Pt goes to Dr. Navarro's office monthly for catheter change. Original Note: NATHAN STOUT Assessment: Face to Face with pt for initial transition planning/care coordination assessment. RN ARGELIA introduced self and role at [facility], pt voices understanding and consents to assessment. Pt is A&O x4 and answers all questions appropriately at this time. Pt sitting up in chair in no distress with oxygen on. Care providers, pharmacy, and demographics verified/updated. Admitting Dx: UTI, influenza A, generalized weakness Strata Score: 3 PCP:Dmitriy Specialists:Janet, onc; genet Navarro Preferred Pharmacy: [facility] Insurance: [facility], [employer] Prescription Benefit: yes LNOK: Darvel Kich, Living Arrangements: Pt lives with in a single story home with 2 steps to enter with a rail. Pt reports he is I in ADLs and performs IADLs. Pt denies concerns at home. Transportation: Pt drives self and denies concerns with transportation. DME:walk in shower, shower chair, cane, walker- Pt has a lyman and colostomy and uses [employer] to get supplies. HHC/SNF: Denies hx of Pt states no concerns with going home at time of dc. Discussed possible oxygen for homegoing. Provided pt with a verbal local in network list of DME companies, pt chose [employer]. Discussed HHC with pt, pt states he feels he does not need this unless he cannot walk. Encouraged pt to use IS and pickle, pt demonstrated for RN ARGELIA. Pt states no further concerns/needs. CM to follow. Advised pt to ask CM if any further questions/concerns/needs arise, voices understanding. Pt Goal: Home Plan: Home, follow therapy and for oxygen Deyanira EVANS CM
--- NOTE | 2024-06-27 18:56 | PN.HOSP_ITS ---
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) Influenza due to other identified influenza virus with other respiratory manifestations (06/26/24) Chronic kidney disease, stage 3a (06/26/24) Chronic kidney disease, unspecified (06/26/24) Acute cystitis without hematuria (06/26/24) Difficulty in walking, not elsewhere classified (06/26/24) Weakness (06/26/24) Encounter for antineoplastic chemotherapy (06/26/24) Personal history of other malignant neoplasm of rectum, rectosigmoid junction, and anus (06/26/24) Subjective Subjective Patient was seen and examined today, he is currently on 2 L of oxygen via nasal cannula. The numbers of organisms in his urine culture was lower than 100,000, I have elected to take him off IV antibiotics at this time and place him on oral antibiotics starting tonight. Patient does not complain of any shortness of breath at rest. Objective Data Objective Data Vital Signs: Vital Signs Temp Pulse Resp BP Pulse Ox O2 Del Method O2 Flow Rate 97.7 F L 77 20 H 118/47 L 94 Nasal Cannula 2 06/27/24 14:49 06/27/24 15:00 06/27/24 14:49 06/27/24 14:49 06/27/24 14:49 06/27/24 15:00 06/27/24 15:00 Oxygen Flow Rate (L/min) 2 Oxygen Delivery Method Nasal Cannula Weight: 76.4 kg Body Mass Index (BMI) 24.9 Intake & Output: Intake and Output for Last 24 Hours 06/25/24 06/26/24 06/27/24 23:59 23:59 23:59 Intake Total 1050 / 1050 1620 / 1620 Output Total 500 / 500 Balance 1050 / 1050 1120 / 1120 Lab / Micro Data 06/27/24 04:24 06/27/24 04:24 Labs: Laboratory Results - last 24 hr 06/27/24 04:24: WBC 5.6, RBC 4.07 L, Hgb 11.1 L, Hct 34.9 L, MCV 85.7, MCH 27.3, MCHC 31.8 L, RDW Std Deviation 51.1 H, RDW Coeff of Edmar 16.4 H, Plt Count 119 L, MPV 10.4, Immature Gran % (Auto) 0.200, Neut % (Auto) 85.6 H, Lymph % (Auto) 7.1 L, Major % (Auto) 6.9, Eos % (Auto) 0.0, Baso % (Auto) 0.2, Absolute Neuts (auto) 4.8, Absolute Lymphs (auto) 0.40 L, Nucleated RBC % 0, Sodium 142, Potassium 3.7, Chloride 113 H, Carbon Dioxide 21.0, Anion Gap 8, BUN 31 H, Creatinine 1.41 H, Estim Creat Clear Calc 40.51, Est GFR (MDRD) Af Amer 62, Est GFR (MDRD) Non- Af 51 L, BUN/Creatinine Ratio 22.0 H, Glucose 125 H, Calcium 8.2 L, Phosphorus 3.7, Magnesium 1.7, Total Bilirubin 0.50, AST 68 H, ALT 55, Alkaline Phosphatase 108, Total Protein 5.4 L, Albumin 2.2 L, Globulin 3.2, Albumin/Globulin Ratio 0.7 L, TSH 0.583 Micro: Microbiology 06/26/24 17:53 Urine Catheter - Guthrie Urine Culture - Preliminary Gram negative roel 06/26/24 23:40 Mucosa - Nasopharyngeal Respiratory Panel (PCR) - Final Influenza A (Subtype H1) 06/26/24 17:26 Mucosa - Nose SARS-CoV-2, Influenza & RSV (PCR) - Final Influenzae A Physical Exam Const alert, oriented x3 and no apparent distress General Appearance: cooperative, well kempt and well developed Orientation / Consciousness: awake, oriented to person, oriented to place and oriented to time HEENT normocephalic, head/scalp atraumatic and moist oral mucous membranes Eyes PERRL, EOMs intact bilaterally and conjunctivae normal Neck supple, no JVD, thyroid normal and no carotid bruits General: trachea midline Resp normal respiratory effort, no retractions and no use of accessory muscles Resp Narrative: Scattered expiratory wheezing is noted bilaterally which is not severe Auscultation: Negative for rales, rhonchi or wheezes Cardio regular rate, regular rhythm, S1 normal heart sound, S2 normal heart sound, no murmurs, no rub and no gallops GI normal to inspection, nondistended, normoactive bowel sounds, soft to palpation, non-tender and non-distended Extremity no clubbing, cyanosis or edema Skin no rashes or lesions noted General Skin Exam: no breakdown Neuro oriented x3, CN's II-XII intact bilaterally, moves all extremities, no focal motor deficits and no sensory deficits noted Sensorium / Orientation: awake and alert Speech: speech normal Psych affect normal Assessment & Plan Assessment/Plan (1) Influenza A: PLAN: Plan 1. Influenza A with hypoxia-patient will remain on Tamiflu, oxygen will be weaned if possible #2 hypoxia secondary to influenza A-oxygen will be weaned if possible #3 probable cystitis-patient was transitioned over to oral Keflex adjusted for his renal function, it is possible the bacteriuria is from his chronic Guthrie catheter #4 chronic kidney disease stage IIIb-complicates care, management, recovery, and prognosis #5 acute debility secondary to influenza A and probable cystitis-patient is being seen by PT and OT #6 type 2 diabetes-patient is currently on metformin-I will write for this medication while in the hospital, I do not feel the patient needs fingerstick blood sugars #7 chronic indwelling Guthrie catheter-complicates care, management, recovery, and prognosis #8 prostate cancer-complicates care, management, recovery, and prognosis Total clinical time spent by myself addressing the patient's medical issues, reviewing all of his data, and collaborating with patient's care team: 35 minutes Charges/Coding Visit Charges Inpatient E&M: 48454 Subs Hosp L2
[2024-06-27] MEDS: metFORMIN HCl 500 MG Tablet PO (20:38)
[2024-06-27] MEDS: Cephalexin 500 MG Capsule PO (20:38)
[2024-06-27] MEDS: Atorvastatin Calcium 10 MG Tablet PO (20:38)
[2024-06-27] MEDS: MELATONIN 3 MG TABLET PO (20:39)
[2024-06-28] VITALS (22 sets, daily range): BP systolic 109–142; BP diastolic 47–63; PULSE 70–94; RESP 14–32; TEMP 35.7–37.1; O2SAT 83–97; BMI 25.0
[2024-06-28] MEDS: hydrALAZINE 25 MG Tablet PO ×3 (06:46→22:10)
[2024-06-28] MEDS: Menthol/Lanolin/Calamine/Znox 113 GM Tube 1 APPLIC TOPICAL ×3 (06:46→22:10)
[2024-06-28] MEDS: 0.9% Saline Lock 10 ML Syringe IV (06:48)
[2024-06-28 08:00] LABS: Magnesium 1.8 mg/dL (1.6-2.6); Phosphorus 2.7 mg/dL (2.5-4.9)
[2024-06-28] MEDS: metFORMIN HCl 500 MG Tablet PO ×2 (10:28→17:16)
[2024-06-28] MEDS: Losartan Potassium 100 MG Tablet PO (10:29)
[2024-06-28] MEDS: Lactobacillis Acidophilus 1 CAP PO ×4 (10:29→22:10)
[2024-06-28] MEDS: Ascorbic Acid 500 MG Tablet 1000 MG PO ×2 (10:29→17:16)
[2024-06-28] MEDS: Enoxaparin 30 MG/0.3 ML Syringe SC (10:30)
[2024-06-28] MEDS: amLODIPine 10 MG Tablet PO (10:30)
[2024-06-28] MEDS: Cephalexin 500 MG Capsule PO ×2 (10:30→22:10)
[2024-06-28] MEDS: Metoprolol(XL)Succ 100 MG Tablet PO (10:30)
[2024-06-28] MEDS: Potassium Chloride Oral Tablet 20 MEQ PO (10:30)
[2024-06-28] MEDS: Oseltamivir Phosphate 30 MG Capsule PO ×2 (10:30→22:10)
[2024-06-28] MEDS: Cholecalciferol (Vit D3) 125 MCG CAPSULE (5,000 UNITS) PO (10:31)
[2024-06-28] MEDS: Zinc Sulfate 50 mg zinc (220 mg) ORAL capsule PO (10:31)
--- NOTE | 2024-06-28 14:44 | CASEMGMT ---
Discharge Planning A list of?providers including quality and resource use data and consistent with the patient's preferred geographic region, medical needs, and insurance network was created in [employer] Guide.? This list was provided to the SW. Maile Madrigal Discharge Planning Asst.
--- NOTE | 2024-06-28 16:33 | CHAPLAIN ---
Type of Pastoral Visit _x__ Initial Visit ___ Follow-up Visit ___ On-call Visit ___ General Patient Visit ___ Spiritual Assessment ___ Family Conference ___ Bereavement ___ Rapid Response ___ Code Blue ___ Other (describe below) Pastoral Care Referral From _x__ Patient ___ Family ___ Nurse ___ Physician ___ Bill Board Poster ___ Buffing Wheel Raker ___ Other (describe below) Sacrament/Intervention _x__ Active listening ___ Anointing ___ Mosque ___ Bereavement ___ Communion ___ Sue exploration ___ ___ Life review _x__ Prayer ___ Reconciliation ___ Sacrament of Sick _x__ Supportive presence ___ Wedding ___ Other (describe below) Pastoral Comments found this patient to be worried and upset stating I need to be home by tomorrow; pt tells of calling his who must be confused and doesn't understand what I was asking her to do with the phones; pt is worried about her because of her stroke and seizures in last months; pt has no family in this state and only person to call in neighborhood did not answer the phone; pt asks about calling the police for well check on ; pt also states he has lost his shoes in the hospital and only has pajama pants to wear home and is without his wallet; pt is tearful and wonders out loud what he and his can do for future support; discussion went to having help at home; pt says is very stubborn about having people come to the house; student nurse and floor nurse both stop into room in this visit; floor nurse makes call to police department and they report that answers phone and is fine; pt is tearful and expresses thanks for the help; pt welcomes a prayer; pt asks for decisions to be made about future care to be acceptable to his ; pt expresses appreciation for the support today
--- NOTE | 2024-06-28 20:15 | PCM.PN.HOSP ---
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) Influenza due to other identified influenza virus with other respiratory manifestations (06/26/24) Chronic kidney disease, stage 3a (06/26/24) Chronic kidney disease, unspecified (06/26/24) Acute cystitis without hematuria (06/26/24) Difficulty in walking, not elsewhere classified (06/26/24) Weakness (06/26/24) Encounter for antineoplastic chemotherapy (06/26/24) Personal history of other malignant neoplasm of rectum, rectosigmoid junction, and anus (06/26/24) Subjective Subjective Patient was seen and examined today, he states he would like to try to go home, he is worried about his who he takes care of at home. Patient is still on 3 L of oxygen, he states he does not use oxygen at home. Patient was standby assist when walking today and ambulated approximately 140 feet. Additional therapy is being recommended. Objective Data Objective Data Vital Signs: Vital Signs Temp Pulse Resp BP Pulse Ox O2 Del Method O2 Flow Rate 98.3 F 73 20 H 109/47 L 93 Nasal Cannula 3 06/28/24 15:04 06/28/24 15:04 06/28/24 15:04 06/28/24 15:04 06/28/24 15:04 06/28/24 15:04 06/28/24 15:04 Oxygen Flow Rate (L/min) 3 Oxygen Delivery Method Nasal Cannula Weight: 76.5 kg Body Mass Index (BMI) 25.0 Intake & Output: Intake and Output for Last 24 Hours 06/26/24 06/27/24 06/28/24 23:59 23:59 23:59 Intake Total 1050 / 1050 1620 / 1620 540 / 540 Output Total 500 / 1100 1850 / 1850 Balance 1050 / 1050 1120 / 520 -1310 / -1310 Lab / Micro Data 06/27/24 04:24 06/27/24 04:24 Labs: Laboratory Results - last 24 hr 06/28/24 06:40: Phosphorus 2.7, Magnesium 1.8 Micro: Microbiology 06/26/24 17:53 Urine Catheter - Guthrie Urine Culture - Preliminary Pseudomonas aeruginosa Gram positive organism 06/26/24 23:40 Mucosa - Nasopharyngeal Respiratory Panel (PCR) - Final Influenza A (Subtype H1) 06/26/24 17:26 Mucosa - Nose SARS-CoV-2, Influenza & RSV (PCR) - Final Influenzae A Physical Exam Narrative alert, oriented x3 and no apparent distress General Appearance: cooperative, well kempt and well developed Orientation / Consciousness: awake, oriented to person, oriented to place and oriented to time HEENT normocephalic, head/scalp atraumatic and moist oral mucous membranes Eyes PERRL, EOMs intact bilaterally and conjunctivae normal Neck supple, no JVD, thyroid normal and no carotid bruits General: trachea midline Resp normal respiratory effort, no retractions and no use of accessory muscles Resp Narrative: Scattered expiratory wheezing is noted bilaterally which is not severe Auscultation: Negative for rales, rhonchi or wheezes Cardio regular rate, regular rhythm, S1 normal heart sound, S2 normal heart sound, no murmurs, no rub and no gallops GI normal to inspection, nondistended, normoactive bowel sounds, soft to palpation, non-tender and non-distended Extremity no clubbing, cyanosis or edema Skin no rashes or lesions noted General Skin Exam: no breakdown Neuro oriented x3, CN's II-XII intact bilaterally, moves all extremities, no focal motor deficits and no sensory deficits noted Sensorium / Orientation: awake and alert Speech: speech normal Psych affect normal Assessment & Plan Assessment/Plan (1) Influenza A: PLAN: Plan Assessment & Plan Assessment/Plan Plan 1. Influenza A with hypoxia-patient will remain on Tamiflu, oxygen will be weaned if possible #2 hypoxia secondary to influenza A-oxygen will be weaned if possible #3 probable cystitis-patient was transitioned over to oral Keflex adjusted for his renal function, it is possible the bacteriuria is from his chronic Guthrie catheter #4 chronic kidney disease stage IIIb-complicates care, management, recovery, and prognosis #5 acute debility secondary to influenza A and probable cystitis-patient is being seen by PT and OT, patient would like to go home rather than go to an extended care facility #6 type 2 diabetes-patient is currently on metformin-I will write for this medication while in the hospital, I do not feel the patient needs fingerstick blood sugars #7 chronic indwelling Guthrie catheter-complicates care, management, recovery, and prognosis #8 prostate cancer-complicates care, management, recovery, and prognosis Total clinical time spent by myself addressing the patient's medical issues, reviewing all of his data, and collaborating with patient's care team: 35 minutes Charges/Coding Visit Charges Inpatient E&M: 65487 Subs Hosp L2
[2024-06-28] MEDS: Atorvastatin Calcium 10 MG Tablet PO (22:10)
[2024-06-28] MEDS: Loperamide 2 MG Capsule PO (22:10)
[2024-06-29] VITALS (8 sets, daily range): BP systolic 110–149; BP diastolic 38–63; PULSE 75–87; RESP 16–26; TEMP 36.2–36.4; O2SAT 92–96; BMI 24.0
[2024-06-29] MEDS: Acetaminophen 325 MG Tablet 650 MG PO (00:49)
[2024-06-29] MEDS: Loperamide 2 MG Capsule PO (04:56)
[2024-06-29] MEDS: hydrALAZINE 25 MG Tablet PO (04:56)
--- NOTE | 2024-06-29 08:35 | RAD_ITS ---
PROCEDURE: CHEST 1 VIEW (PORTABLE) REASON FOR EXAM: Hypoxia. TECHNIQUE: Frontal view of the chest. COMPARISON: Comparison is made with prior study dated June 26, 2024. FINDINGS: A left-sided port a catheter is in-situ with the tip at the junction of the superior vena cava and right atrium. The heart size is normal. The lungs are clear. RAD/Chest 1 View (Portable) IMPRESSION: No acute abnormality is seen. Stable examination. Reading Location: [facility]
--- NOTE | 2024-06-29 08:59 | WOUNDNOTE ---
Ostomy appliance remains intact. pt denies any needs at this time. aware to call if needs arise. pt states he is hoping to go home today.
[2024-06-29] MEDS: Metoprolol(XL)Succ 100 MG Tablet PO (09:23)
[2024-06-29] MEDS: Ascorbic Acid 500 MG Tablet 1000 MG PO (09:23)
[2024-06-29] MEDS: metFORMIN HCl 500 MG Tablet PO (09:24)
[2024-06-29] MEDS: Oseltamivir Phosphate 30 MG Capsule PO (09:24)
[2024-06-29] MEDS: Lactobacillis Acidophilus 1 CAP PO (09:24)
[2024-06-29] MEDS: Cholecalciferol (Vit D3) 125 MCG CAPSULE (5,000 UNITS) PO (09:24)
[2024-06-29] MEDS: Potassium Chloride Oral Tablet 20 MEQ PO (09:24)
[2024-06-29] MEDS: Cephalexin 500 MG Capsule PO (09:24)
[2024-06-29] MEDS: Zinc Sulfate 50 mg zinc (220 mg) ORAL capsule PO (09:24)
[2024-06-29] MEDS: Enoxaparin 30 MG/0.3 ML Syringe SC (09:24)
[2024-06-29] MEDS: amLODIPine 10 MG Tablet PO (09:25)
[2024-06-29] MEDS: Losartan Potassium 100 MG Tablet PO (09:25)
[2024-06-29] MEDS: Menthol/Lanolin/Calamine/Znox 113 GM Tube 1 APPLIC TOPICAL (09:25)
--- NOTE | 2024-06-29 09:43 | CASEMGMT ---
Social Work- SW met with pt to discuss concerns expressed to digital associate. Pt reports that he does not want HHC, as is not agreeable at this time and he would like to discuss it with her when he returns home. Pt reports that his had a stroke in September and has had two seizures since then. He reports she is pretty independent and can cook and clean and grocery shops. Pt reports when she is calem, her speech is good, ehrn she is upset or frustrated, her speech is worthless. Pt reports that he sets up her meds, but does not remind her to take them, as she is temperamental if she feels he is interfering. Pt reports that he spoke with [facility] previously about in-home assistance, as he has been undergoing chemo, but was not agreeable. SW provided [facility] and private duty list for additional resources. Pt reports that he is concerned about discharge over the weekend due to transportation concerns. Pt reports that he has no one who can assist with transport and pt will need to take the [facility] van home. Pt reports that he left the home via squad and did not have coat, wallet, or keys and is uncertain if he had shoes. Staff looked in ED for shoes, as pt does not have shoes in his room, but were unable to locate any that matched the description pt provided. SW reached out to the [facility] closet to secure shoes and coat for pt. SW received a message from Jacy at [facility] that she had met with pt and had concerns that pt needs assistance at home. Phyllis at PCP office also has concerns according to Jacy. Jacy reports that the concerns are due to pt declining health due to cancer. Jacy reports that she will follow up next week. SW will share concerns with pt. SW remains available to follow. MARY Sanchez
--- NOTE | 2024-06-29 11:22 | CASEMGMT ---
NATHAN CM NOTE: Home amb O2 testing has been completed. Pt does not qualify for home O2. Bernard SMITH RN CM
--- NOTE | 2024-06-29 12:36 | CASEMGMT ---
Addendum entered by Shanelle Moctezuma 06/29/24 12:52: WARNER followed up with Jacy at [facility] re: patient agreement to services. Jacy will call to follow-up. MARY Sanchez Original Note: Social Work- SW followed up with pt to provide printed resources and further discuss in-home assistance. Pt again declined [facility], but is agreeable to calling [facility] to establish services after an in-depth conversation on pt and pt needs and benefits of establishing supports before any further decline in health. Pt updated of 2PM transport time by [facility] karri. Pt did select a warm blanket and coat from [employer] closet and will layer socks for transport home. Pt was appreciative of resources and support. Pt reports no additional needs at this time. Plan: home, no needs MARY Sanchez
--- NOTE | 2024-06-29 13:03 | PCM.DC ---
Discharge Instructions Diet Discharge Diet: 1800 Calorie Control Diet DC O2, CPAP, BIPAP needs RN Home O2 Qualification: Home O2 Qualification: Is the patient on home oxygen No 06/29/24 09:51 Home O2 Qualification: AT REST 1- Pulse Ox at rest 96 06/29/24 09:51 Home O2 Qualification: WITH AMBULATION 1- Pulse Ox with ambulation 93 06/29/24 09:51 1- Oxygen Flow Rate with 0 06/29/24 09:51 ambulation Home O2 Discharge instructions: No Dressing / Incision Discharge Activity: Return to Normal Activity Weight Bearing Status: Full weight bearing Follow Up Care Test Results: Test results from this visit will be discussed in further detail at your follow-up appointment, if applicable. Discharge Plan Admission Admit Date/Time: 06/26/24 21:04 Primary Reason for Your Visit: Influenza A, hypoxia Attending Provider: Mango Sal Primary Care Provider: Rigo Izaguirre Consulting Providers: Star Emanuel Discharge Orders/Prescriptions Prescriptions: New metformin 500 mg Tablet 500 mg PO BIDCM Qty: 60 0RF oseltamivir 30 mg Capsule 30 mg PO BID Qty: 5 0RF Continued amlodipine 10 mg tablet 10 mg PO DAILY loperamide [Imodium A-D] 2 mg capsule 2 mg PO Q6H PRN (Reason: loose stool) ondansetron HCl 8 mg tablet 8 mg PO Q8H Qty: 30 2RF prochlorperazine maleate [Compazine] 10 mg tablet 10 mg PO Q6H PRN (Reason: nausea and vomiting) Qty: 30 2RF metoprolol succinate 100 MG tablet 100 mg PO DAILY losartan 100 MG tablet 100 mg PO DAILY Patient Comments: BP rosuvastatin 5 mg tablet 5 mg PO DAILY hydralazine 25 mg Tablet 25 mg PO TID 30 Days Qty: 90 0RF polysaccharide iron complex 150 mg iron capsule 150 mg PO DAILY lidocaine-prilocaine 2.5-2.5 % cream 1 applic topical ONCE PRN (Reason: port access) 30 Days Qty: 30 2RF potassium chloride 20 mEq tablet,ER particles/crystals 20 meq PO DAILY 30 Days Qty: 30 0RF Discontinued metformin 500 mg tablet 500 mg PO DAILY Referrals / Follow Up: Rigo Izaguirre MD [Primary Care Provider] - Within 2 Weeks Disposition Disposition (needs filled in before D/C Order can be placed): Home, Self Care
--- NOTE | 2024-06-29 13:13 | DS.PCM_ITS ---
Providers Date of Admission: 06/26/24 Date of Discharge: 06/29/24 Primary Care Physician: Dr. Rigo Izaguirre MD Consultations 06/27/24 07:30 Consult: Onc/Wound/loan operations specialist Routine Comment: Reason for Consult:: Colostomy Reason For Visit: UTI, INFLUENZA A, GENERALIZED WEAKNESS AND Diagnosis Discharge Diagnosis (1) Influenza A: Status: Acute Code(s): J10.1 - Influenza due to other identified influenza virus with other respiratory manifestations Plan Assessment & Plan Assessment/Plan 1. Influenza A with hypoxia #2 hypoxia secondary to influenza A-oxygen will be weaned if possible #3 acute cystitis was ruled out-patient has bacteriuria secondary to chronic indwelling Guthrie catheter #4 chronic kidney disease stage IIIb-complicates care, management, recovery, and prognosis #5 acute debility secondary to influenza A and probable cystitis-patient is being seen by PT and OT, patient would like to go home rather than go to an extended care facility #6 type 2 diabetes-patient is currently on metformin-I will write for this medication while in the hospital, I do not feel the patient needs fingerstick blood sugars #7 chronic indwelling Guthrie catheter-complicates care, management, recovery, and prognosis #8 prostate cancer-complicates care, management, recovery, and prognosis Total clinical time spent by myself addressing the patient's medical issues, reviewing all of his data, and collaborating with patient's care team: 35 minutes Medications at Discharge Home Medications losartan 100 mg tablet 100 mg PO DAILY bp 06/01/13 metoprolol succinate 100 mg tablet,extended release 24 hr 100 mg PO DAILY bp 06/01/13 rosuvastatin 5 mg tablet 5 mg PO DAILY CHOLESTEROL 12/16/21 amlodipine 10 mg tablet 10 mg PO DAILY BP 01/07/23 hydralazine 25 mg tablet 25 mg PO TID bp 30 days #90 tabs 03/23/23 lidocaine-prilocaine 2.5 %-2.5 % topical cream 1 applic topical ONCE PRN port access 30 days #30 grams 01/09/24 loperamide 2 mg capsule (Imodium A-D) 2 mg PO Q6H PRN loose stool 03/22/24 ondansetron HCl 8 mg tablet 8 mg PO Q8H #30 tabs 03/28/24 prochlorperazine maleate 10 mg tablet (Compazine) 10 mg PO Q6H PRN nausea and vomiting #30 tabs 03/28/24 polysaccharide iron complex 150 mg iron capsule 150 mg PO DAILY supplement 06/27/24 metformin 500 mg tablet 500 mg PO BIDCM #60 tabs 06/29/24 oseltamivir 30 mg capsule 30 mg PO BID #5 caps 06/29/24 Hospital Course Operations None Procedures None Summary of Care Provided Minutes Spent on Discharge: 32 Hospital Course: This 79-year-old white male was seen in the emergency room at [facility] with complaints of generalized weakness and inability to perform ADLs at home. Workup in the emergency room included a CBC which was abnormal for a hemoglobin of 12.4, patient's white blood cell count was normal, creatinine was elevated at 1.49 and BUN was 28. Patient had a chronic indwelling Guthrie, UA showed more than 100 white cells and +3 bacteria. Chest x-ray showed no acute disease, patient's influenza A test was positive. Patient was admitted to [place] [address], he was felt initially to have acute cystitis and placed on IV antibiotics, he was placed on Tamiflu and seen by PT and OT. Patient was hypoxic on admission, his oxygen was eventually weaned off. On 06/29/2024, patient was seen and examined: On examination he appeared in good health and spirits. Vital signs as documented. Skin warm and dry and without overt rashes. Neck without JVD, neck was supple, trachea midline, thyroid was normal. Lungs clear bilaterally, normal air movement was noted. Heart exam notable for regular rhythm, normal sounds and absence of murmurs, rubs or gallops. Abdomen unremarkable and without evidence of organomegaly, masses, or abdominal aortic enlargement. Patient has a colostomy, bowel sounds are present, abdomen is not distended. Extremities nonedematous, no cyanosis was noted, no clubbing was noted. Neuro: Cranial nerves II through XII are grossly intact, no focal motor deficits were noted, sensation to light touch and pinprick intact, motor exam 5/5 throughout. Psych: Patient is alert and oriented x3, he does not appear anxious or depressed, he does not appear agitated. Patient was discharged home in stable condition on 06/29/2024. Weight / BMI Weight Weight: 73.7 kg Body Mass Index (BMI) 24.0 ABG / Lab / Microbiology Data 06/27/24 04:24 06/27/24 04:24 Microbiology: Microbiology 06/26/24 17:53 Urine Catheter - Guthrie Urine Culture - Final Pseudomonas aeruginosa Enterococcus faecalis 06/26/24 23:40 Mucosa - Nasopharyngeal Respiratory Panel (PCR) - Final Influenza A (Subtype H1) 06/26/24 17:26 Mucosa - Nose SARS-CoV-2, Influenza & RSV (PCR) - Final Influenzae A Radiography Diagnostic Testing: Radiology Impression Chest X-Ray 06/29/24 08:35 IMPRESSION: No acute abnormality is seen. Stable examination. Reading Location: [id number] D/C Instructions Discharge Diet: 1800 Calorie Control Diet Weight Bearing Status: Full weight bearing DC O2, CPAP, BIPAP Needs RN Home O2 Qualification: Home O2 Qualification: Is the patient on home oxygen No 06/29/24 09:51 Home O2 Qualification: AT REST 1- Pulse Ox at rest 96 06/29/24 09:51 Home O2 Qualification: WITH AMBULATION 1- Pulse Ox with ambulation 93 06/29/24 09:51 1- Oxygen Flow Rate with 0 06/29/24 09:51 ambulation Home O2 Discharge instructions: No Meaningful Use Info Meaningful Use Meaningful Use Diagnoses (Choose all that apply): None applicable Ischemic Stroke Statin Dosing Therapy Reference: STATIN DOSE THERAPY REFERENCE: * Patients > 75 years receive moderate or high dose statin therapy. * Patients 75 years or YOUNGER should receive HIGH intensity statin dose unless contraindicated. You will be required to document reason for non-treatment if statin daily dose does not meet guidelines. HIGH DOSE STATIN THERAPY DAILY Atorvastatin > than or = to 40 mg Rosuvastatin > than or = to 20 mg Amlodipine + Atorvastatin > than or = to 2.5/40 mg Ezetimibe + Simvastatin 10/80 mg Simvastatin 80mg Discharge Plan Admission Admit Date/Time: 06/26/24 21:04 Primary Reason for Your Visit: Influenza A, hypoxia Attending Provider: Mango Sal Primary Care Provider: Rigo Izaguirre Consulting Providers: Star Emanuel Discharge Orders/Prescriptions Prescriptions: New metformin 500 mg Tablet 500 mg PO BIDCM Qty: 60 0RF oseltamivir 30 mg Capsule 30 mg PO BID Qty: 5 0RF Continued amlodipine 10 mg tablet 10 mg PO DAILY loperamide [Imodium A-D] 2 mg capsule 2 mg PO Q6H PRN (Reason: loose stool) ondansetron HCl 8 mg tablet 8 mg PO Q8H Qty: 30 2RF prochlorperazine maleate [Compazine] 10 mg tablet 10 mg PO Q6H PRN (Reason: nausea and vomiting) Qty: 30 2RF metoprolol succinate 100 MG tablet 100 mg PO DAILY losartan 100 MG tablet 100 mg PO DAILY Patient Comments: BP rosuvastatin 5 mg tablet 5 mg PO DAILY hydralazine 25 mg Tablet 25 mg PO TID 30 Days Qty: 90 0RF polysaccharide iron complex 150 mg iron capsule 150 mg PO DAILY lidocaine-prilocaine 2.5-2.5 % cream 1 applic topical ONCE PRN (Reason: port access) 30 Days Qty: 30 2RF Discontinued metformin 500 mg tablet 500 mg PO DAILY Referrals / Follow Up: Rigo Izaguirre MD [Primary Care Provider] - Within 2 Weeks Disposition Disposition (needs filled in before D/C Order can be placed): Home, Self Care Charges/Coding Visit Charges Inpatient E&M: 16541 Disch Hosp >30min
== END 2024-06-29 13:44 | disposition home or self-care (01) | DRG 194 ==
LOC: ED 19:02 → MS3 21:52
PROVIDERS: Admitting Provider Internal Medicine; Emergency Provider Emergency Medicine; PCP Family Medicine; Visit Provider Internal Medicine
DX: J10.1 Influenza due to other identified influenza virus with other respiratory manifestations (principal); C78.7 Secondary malignant neoplasm of liver and intrahepatic bile duct; E11.22 Type 2 diabetes mellitus with diabetic chronic kidney disease; N18.32 Chronic kidney disease, stage 3b; I12.9 Hypertensive chronic kidney disease with stage 1 through stage 4 chronic kidney disease, or unspecified chronic kidney disease; Z93.3 Colostomy status; E78.00 Pure hypercholesterolemia, unspecified; C61 Malignant neoplasm of prostate; M17.12 Unilateral primary osteoarthritis, left knee; R82.71 Bacteriuria; Z86.16 Personal history of COVID-19; Z79.899 Other long term (current) drug therapy; X58.XXXA Exposure to other specified factors, initial encounter
CPT/HCPCS: 36415; 36591; 71045; 80053; 81001; 83735; 84100; 84443; 85025; 87077; 87086; 87088; 87184; 87186; 87631; 87633; 93005; 94668; 97162; 97166; 97530; 97535; 97802; 99285; A4216; J2405

== ENCOUNTER 2024-07-27 10:38 | Day surgery (SDC) | payer MEDICARE, OTHER, SELFPAY ==
--- NOTE | 2024-07-20 11:54 | PAT.ANE_ITS ---
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 When Was Last Pacemaker Check QUESTION #4 FULL TEXT: You/Your Family Experience fever (hyperthermia) with Anesthesia Last Oral Intake Last Oral intake: Last Oral Intake NPO since Meds taken in AM with sips of water? Meds patient instructed to take am of surgery PONV PONV - roll cutting operator: PONV - roll cutting operator Female No 07/20/24 11:09 HX of Motion Sickness No 07/20/24 11:09 HX of N/V After Surgery Yes 07/20/24 11:09 Non-Smoker No 07/20/24 11:09 Duration of Surgery greater No 07/20/24 11:09 than 60 minutes Number of Risk Factors 1 07/20/24 11:09 PONV Score Low Risk 07/20/24 11:09 Height & Weight Height & Weight: Anesthesia: Height & Weight Height 5 ft 9 in 07/12/24 14:21 Respiratory Assessment Respiratory Assessment - roll cutting operator: Respiratory Tract Infection Hx - roll cutting operator Hx Respiratory Tract Infection No 07/20/24 11:09 STOP Sleep Apnea STOP Sleep Apnea - roll cutting operator: STOP Sleep Apnea - roll cutting operator Hx Hypertension Yes: CONTROLLED ON MED 07/20/24 11:09 Hx Sleep Apnea No 07/20/24 11:09 CPAP No 07/20/24 11:09 BIPAP No 07/20/24 11:09 Do you snore loudly (louder No 07/20/24 11:09 than talking or can be heard Do you often feel tired/ No 07/20/24 11:09 fatigued/ sleepy during daytime? Has anyone observed you stop No 07/20/24 11:09 breathing during sleep? STOP Results Negative 07/20/24 11:09 QUESTION #5 FULL TEXT : Do you snore loudly (louder than talking or can be heard through closed doors)? 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 Specify any problems Hx of Preganancy in last 3 N/A 07/20/24 11:09 Months Nurse Filling Out Transfusion VCHRISTIN 07/20/24 11:09 & Questions: Date: 07/20/24 07/20/24 11:09 Time: 11:10 07/20/24 11:09 Patient unable to answer at this time (ie. 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 Generalized weakness CINV (chemotherapy-induced nausea and vomiting) 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 Anemia Edema of both lower legs Prerenal azotemia Diarrhea due to drug Chemotherapy management, encounter for Encounter for education Elevated PSA Torn meniscus Chronic pain COVID History of Clostridium difficile infection Indwelling urethral catheter present Diabetes Gout High cholesterol Non-smoker History of anal cancer Cancer HTN (hypertension) Home Medications ?Medication ?Instructions ?Recorded ?Last Taken ?Type losartan 100 mg tablet 100 mg PO DAILY bp 06/01/13 01/09/24 History metoprolol succinate 100 mg 100 mg PO DAILY bp 4 01/09/24 History tablet,extended release 24 hr rosuvastatin 5 mg tablet 5 mg PO DAILY CHOLESTEROL 03/04/23 History amlodipine 10 mg tablet 10 mg PO DAILY BP 01/07/23 0 01/09/24 History hydralazine 25 mg tablet 25 mg PO TID bp 30 days #90 tabs 03/23/23 Unknown Rx lidocaine-prilocaine 2.5 %-2.5 % 1 applic topical ONCE PRN port 01/09/24 Unknown Rx topical cream access 30 days #30 grams metformin 500 mg tablet 500 mg PO BIDCM #60 tabs Unknown Rx Allergy/AdvReac Type Severity Reaction Status Date / Time hydromorphone (From Dilaudid) AdvReac Other Verified 07/20/24 10:54 meperidine (From Demerol) AdvReac Nausea/Vom/ Verified 07/20/24 10:54 Diarrhea Family History Father Myocardial infarction Surgical History (Updated 07/20/24 @ 11:09 by Leilani Berman) Hx of colectomy History of total left knee replacement S/P total knee arthroplasty Hx of cystoscopy Hx of left knee surgery Hx of cystoscopy Hx of cystoscopy Hx of cystoscopy (~05/28/20) Hx of cystoscopy (~01/23/20) Hx of dilation of urethra Hx of cystoscopy Hx of cystoscopy Hx of cystoscopy History of removal of Port-a-Cath Hx of colonoscopy Hx of cataract surgery History of back surgery History of cholecystectomy History of appendectomy Social History household members: spouse Smoking Status: Never smoker alcohol intake: never substance use type: does not use Audit: Pertinent Findings Pertinent Findings EKG Perinent findings: 06/27/2024 sinus rhythm frequent PVCs right bundle branch block Echo (EF%) pertinent findings: 11/11/2023 EF 65% Pulmonary function results/spirometer pertinent findings: Chest x-ray 06/29/2024 no acute abnormality seen Recommendation Anesthesia Recommendation Anesthesia recommendation: OPTIMIZED for anesthesia
--- NOTE | 2024-07-27 10:38 | PCM.PRE.AN2 ---
ASA Classification* ASA Classification ASA Classification: 3 Assessment & Plan Anesthesia* Anesthesia Assessment Anesthesia Assessment: Discussed sedation and/or anesthesia options, risks, benefits, and alternatives with patient/parents/legal guardian/POA. Questions invited. The patient/parents/legal guardian/POA seems to understand and agrees to proceed with anesthesia plan. Reviewed the physical assessment, medical history, allergy history and patient home medications list prior to surgery/procedure/anesthetic and documented any changes. Performed airway and anesthesia risk assessments. Anesthesia Type Anesthesia Type: MAC Anesthesia Focused Assessment* Airway Assessment Mouth opens: >3 cm Mallampati Score: II Focused Labs Anesthesia Preop lab: CBC WBC 8.8 K/mm3 (4.4-11.0) 07/26/24:07/26/24 RBC 4.51 M/mm3 (4.6-6.2) L 07/26/24 13:07/26/24 Hgb 11.7 g/dL (13.0-16.5) L 07/26/24:07/26/24 Hct 36.8 % (40-54) L 07/26/24 13:07/26/24 Plt Count 255 K/mm3 (150-450) 07/26/24 13:07/26/24 CHEMISTRY Potassium 4.1 mmol/L (3.3-5.1) 07/26/24:07/26/24 Sodium 140 mmol/L (133-145) 07/26/24 13:07/26/24 Magnesium 1.8 mg/dL (1.6-2.6) 06/28/24 06:40 06/28/24 Phosphorus 2.7 mg/dL (2.5-4.9) 06/28/24 06:40 06/28/24 BUN 27 mg/dL (4-19) H 07/26/24:07/26/24 Creatinine 1.49 mg/dL (0.70-1.20) H 07/26/24 13:07/26/24 Glucose 173 mg/dL (70-99) H 07/26/24 13:07/26/24 POC Glucose 98 mg/dL (74-106) 01/09/24 10:31 01/09/24 TSH 2.570 uIU/mL (0.300-4.200) 07/26/24 13:34 07/26/24 COAG PT 13.6 SECONDS (11.7-14.9) 02/02/24 09:25 02/02/24 Pre-Assessment Diagnosis/Proposed Procedure Planned Operative Procedure(s): (B) Cysto,Insertion Stent Anesthesia History Anesthesia History - electroneurodiagnostic technologist: Anesthesia History - electroneurodiagnostic technologist Hx Hospitalization Yes: [facility] 202207/20/24 11:09 Any Problems With Anesthesia No 07/20/24 11:09 Cholinesterase deficiency No 07/20/24 11:09 You/Your Family Experience No 07/20/24 11:09 fever (hyperthermia) with Relationship Recent Exposure to Contagious No 04/02/24 20:12 Disease Does patient have nerve No 07/20/24 11:09 stimulator Patient instructed to have device shut off --Does patient have Pacemaker or ICD? When Was Last Pacemaker Check QUESTION #4 FULL TEXT: You/Your Family Experience fever (hyperthermia) with Anesthesia Last Oral Intake Last Oral intake: Last Oral Intake NPO since Meds taken in AM with sips of water? Meds patient instructed to take am of surgery PONV PONV - electroneurodiagnostic technologist: PONV - electroneurodiagnostic technologist Female No 07/20/24 11:09 HX of Motion Sickness No 07/20/24 11:09 HX of N/V After Surgery Yes 07/20/24 11:09 Non-Smoker No 07/20/24 11:09 Duration of Surgery greater No 07/20/24 11:09 than 60 minutes Number of Risk Factors 1 07/20/24 11:09 PONV Score Low Risk 07/20/24 11:09 Height & Weight Height & Weight: Anesthesia: Height & Weight Height 5 ft 9 in 07/26/24 13:53 Respiratory Assessment Respiratory Assessment - electroneurodiagnostic technologist: Respiratory Tract Infection Hx - electroneurodiagnostic technologist Hx Respiratory Tract Infection No 07/20/24 11:09 STOP Sleep Apnea STOP Sleep Apnea - electroneurodiagnostic technologist: STOP Sleep Apnea - electroneurodiagnostic technologist Hx Hypertension Yes: CONTROLLED ON MED 07/20/24 11:09 Hx Sleep Apnea No 07/20/24 11:09 CPAP No 07/20/24 11:09 BIPAP No 07/20/24 11:09 Do you snore loudly (louder No 07/20/24 11:09 than talking or can be heard Do you often feel tired/ No 07/20/24 11:09 fatigued/ sleepy during daytime? Has anyone observed you stop No 07/20/24 11:09 breathing during sleep? STOP Results Negative 07/20/24 11:09 QUESTION #5 FULL TEXT : Do you snore loudly (louder than talking or can be heard through closed doors)? 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 Specify any problems Hx of Preganancy in last 3 N/A 07/20/24 11:09 Months Nurse Filling Out Transfusion VCHRISTIN 07/20/24 11:09 & Questions: Date: 07/20/24 07/20/24 11:09 Time: 11:10 07/20/24 11:09 Patient unable to answer at this time (ie. confused, unrespo /Reproduction History /Reproductive History - electroneurodiagnostic technologist: /Reproductive Hx- electroneurodiagnostic technologist Hx Now No 07/20/24 11:09 Gestational Age (in weeks): EDC: Hx Hx Para Hx Section SAB No 07/20/24 11:09 Active Medications Active Medications: Current Medications Generic Name Dose Route Start Last Admin Trade Name Freq PRN Reason Stop Dose Admin Cefazolin Sodium 2 gm/ N/A 20 mls @ 400 mls/hr 07/27/24 12:30 IV 07/27/24 12:32 PREOP ONE PFSH Medical History 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 History of echocardiogram Fatigue Chronic indwelling Guthrie catheter Ambulatory dysfunction Sinus tachycardia by electrocardiography Chronic kidney disease (CKD) Physical debility Influenza A Complicated UTI (urinary tract infection) Generalized weakness CINV (chemotherapy-induced nausea and vomiting) 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 Anemia Edema of both lower legs Prerenal azotemia Diarrhea due to drug Chemotherapy management, encounter for Encounter for education Elevated PSA Torn meniscus Chronic pain COVID History of Clostridium difficile infection Indwelling urethral catheter present Diabetes Gout High cholesterol Non-smoker History of anal cancer Cancer HTN (hypertension) Home Medications ?Medication ?Instructions ?Recorded ?Last Taken ?Type losartan 100 mg tablet 100 mg PO DAILY bp 06/01/13 01/09/24 History metoprolol succinate 100 mg 100 mg PO DAILY bp 06/01/13 01/09/24 History tablet,extended release 24 hr rosuvastatin 5 mg tablet 5 mg PO DAILY CHOLESTEROL 12/16/21 03/04/23 History amlodipine 10 mg tablet 10 mg PO DAILY BP 01/07/23 01/09/24 History hydralazine 25 mg tablet 25 mg PO TID bp 30 days #90 tabs 03/23/23 Unknown Rx lidocaine-prilocaine 2.5 %-2.5 % 1 applic topical ONCE PRN port 01/09/24 Unknown Rx topical cream access 30 days #30 grams metformin 500 mg tablet 500 mg PO BIDCM #60 tabs 06/29/24 Unknown Rx ondansetron HCl 8 mg tablet 8 mg PO Q8H #30 tabs 07/26/24 Unknown Rx Allergy/AdvReac Type Severity Reaction Status Date / Time hydromorphone (From Dilaudid) AdvReac Other Verified 07/26/24 13:52 meperidine (From Demerol) AdvReac Nausea/Vom/ Verified 07/26/24 13:52 Diarrhea Family History Father Myocardial infarction Surgical History Hx of colectomy History of total left knee replacement S/P total knee arthroplasty Hx of cystoscopy Hx of left knee surgery Hx of cystoscopy Hx of cystoscopy Hx of cystoscopy (~05/28/20) Hx of cystoscopy (~01/23/20) Hx of dilation of urethra Hx of cystoscopy Hx of cystoscopy Hx of cystoscopy History of removal of Port-a-Cath Hx of colonoscopy Hx of cataract surgery History of back surgery History of cholecystectomy History of appendectomy Social History household members: spouse Smoking Status: Never smoker alcohol intake: never substance use type: does not use Review of Systems (Anesthesia) ROS Narrative System reviewed and no additional complaints, except as documented.
[2024-07-27 11:11] VITALS: BP 140/71; PULSE 76; RESP 16; TEMP 37; O2SAT 99; BMI 23.6
[2024-07-27] MEDS: Cefazolin 2 GM in Syringe IV (12:30)
--- NOTE | 2024-07-27 12:53 | PCM.HP.STD ---
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 History of echocardiogram Fatigue Chronic indwelling Guthrie catheter Ambulatory dysfunction Sinus tachycardia by electrocardiography Chronic kidney disease (CKD) Physical debility Influenza A Complicated UTI (urinary tract infection) Generalized weakness CINV (chemotherapy-induced nausea and vomiting) 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 Anemia Edema of both lower legs Prerenal azotemia Diarrhea due to drug Chemotherapy management, encounter for Encounter for education Elevated PSA Torn meniscus Chronic pain COVID History of Clostridium difficile infection Indwelling urethral catheter present Diabetes Gout High cholesterol Non-smoker History of anal cancer Cancer HTN (hypertension) Home Medications ?Medication ?Instructions ?Recorded ?Last Taken ?Type losartan 100 mg tablet 100 mg PO DAILY bp 06/01/13 07/26/24 History metoprolol succinate 100 mg 100 mg PO DAILY bp 06/01/13 07/26/24 History tablet,extended release 24 hr rosuvastatin 5 mg tablet 5 mg PO DAILY CHOLESTEROL 12/16/21 07/26/24 History amlodipine 10 mg tablet 10 mg PO DAILY BP 01/07/23 07/26/24 History hydralazine 25 mg tablet 25 mg PO TID bp 30 days #90 tabs 03/23/23 07/26/24 Rx lidocaine-prilocaine 2.5 %-2.5 % 1 applic topical ONCE PRN port 01/09/24 07/26/24 Rx topical cream access 30 days #30 grams metformin 500 mg tablet 500 mg PO BIDCM #60 tabs 06/29/24 07/26/24 Rx ondansetron HCl 8 mg tablet 8 mg PO Q8H #30 tabs 07/26/24 07/27/24 Rx apalutamide 240 mg tablet (Erleada) 240 mg PO DAILY prostate cancer 07/27/24 07/26/24 History ciprofloxacin HCl 500 mg tablet 500 mg PO BID #10 tabs 07/27/24 Unknown Rx (Cipro) Allergy/AdvReac Type Severity Reaction Status Date / Time hydromorphone (From Dilaudid) AdvReac Other Verified 07/27/24 11:09 meperidine (From Demerol) AdvReac Nausea/Vom/ Verified 07/27/24 11:09 Diarrhea Family History Father Myocardial infarction Surgical History Hx of colectomy History of total left knee replacement S/P total knee arthroplasty Hx of cystoscopy Hx of left knee surgery Hx of cystoscopy Hx of cystoscopy Hx of cystoscopy (~05/28/20) Hx of cystoscopy (~01/23/20) Hx of dilation of urethra Hx of cystoscopy Hx of cystoscopy Hx of cystoscopy History of removal of Port-a-Cath Hx of colonoscopy Hx of cataract surgery History of back surgery History of cholecystectomy History of appendectomy Social History household members: spouse Smoking Status: Never smoker alcohol intake: never substance use type: does not use Vital Signs Vital Signs Vital Signs: 07/27/24 11:11 07/27/24 11:11 Temperature 98.6 F Temperature Source Temporal Pulse Rate 76 Respiratory Rate 16 Respiratory Pattern Normal Blood Pressure 140/71 H Blood Pressure Mean 94 Blood Pressure Source Monitor Blood Pressure Position Semi-Fowlers Blood Pressure Location Left Arm Pulse Ox 99 Oxygen Delivery Method Room Air Weight Weight: 72.575 kg Body Mass Index (BMI) 23.6
--- NOTE | 2024-07-27 12:54 | DCINST_ITS ---
Discharge Instructions Diet Discharge Diet: No restrictions DC O2, CPAP, BIPAP needs Home O2 Discharge instructions: No Dressing / Incision Discharge Activity: Return to Normal Activity and May Not Drive (while taking narcotic pain medications.) Dressing / Incision Call your doctor if you observe: Fever of 101 or Higher Follow Up Care Please Follow Up With: Siddharth Navarro MD When: Call [phone] for an appointment Test Results: Test results from this visit will be discussed in further detail at your follow- up appointment, if applicable. Discharge Plan Admission Primary Reason for Your Visit: stent change Attending Provider: Siddharth Navarro Primary Care Provider: Rigo Izaguirre Instructions Print Language: Malay Discharge Orders/Prescriptions Prescriptions: New ciprofloxacin HCl [Cipro] 500 mg tablet 500 mg PO BID Qty: 10 0RF Continued amlodipine 10 mg tablet 10 mg PO DAILY ondansetron HCl 8 mg tablet 8 mg PO Q8H Qty: 30 2RF metoprolol succinate 100 MG tablet 100 mg PO DAILY losartan 100 MG tablet 100 mg PO DAILY Patient Comments: BP rosuvastatin 5 mg tablet 5 mg PO DAILY hydralazine 25 mg Tablet 25 mg PO TID 30 Days Qty: 90 0RF metformin 500 mg Tablet 500 mg PO BIDCM Qty: 60 0RF Erleada 240 mg tablet 240 mg PO DAILY lidocaine-prilocaine 2.5-2.5 % cream 1 applic topical ONCE PRN (Reason: port access) 30 Days Qty: 30 2RF Referrals / Follow Up: Siddharth Navarro MD [Med Staff - Active Staff] - Rigo Izaguirre MD [Primary Care Provider] - Disposition Disposition (needs filled in before D/C Order can be placed): Home, Self Care
--- NOTE | 2024-07-27 12:54 | PCM.OPRPT ---
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 Post-Operative Diagnosis: The same Surgery/Procedure Performed: Cystoscopy bilateral stent changes with Guthrie catheter placement life scientists: No Type of Anesthesia: General RN Documented Start/Stop Times: Operation Date: 07/27/24 12:30 Case Time Into Pre-Op 07/27/24 11:00 Out of Pre-Op 07/27/24 12:19 Anesthesia Start 07/27/24 12:23 Into Room 07/27/24 12:23 Procedure Start 07/27/24 12:42 Procedure End 07/27/24 12:50 Procedure Start Time: 12:42 Procedure Stop Time: 12:55 Select all DRAINS/GRAFTS/IMPLANTS that apply: Drains Drain details: 6 x 26 new stents bilateral Estimated Blood Loss: 5 Specimen collected: No Description of surgery: Is an 79-year-old male who has advanced prostate cancer he has chronic obstruction of both ureters which is made managed with stents the stents are due to be changed stents are getting old and not draining anymore so I taken back to surgery today change about the stents and also placed a new Guthrie catheter. Patient underwent a general anesthetic was placed in dorsolithotomy position. The Guthrie catheter was removed. Went to the bladder with a 21 Frisian rigid cystourethroscope the entire length of the urethra was normal prostate was scarred in I then went into the bladder identified the right ureteral orifice and the right stent pulled the stent out put a wire through the stent up into the kidney performed a retrograde pyelogram and then placed a new stent on the right side, and then went to the left side grabbed the existing stent on the left side pulled out the meatus put a wire through the stent after back loading the wire then the put a Pollick catheter up performed retrograde pyelogram and then placed in this new stent on the left side once both stents were in good position then the patient's bladder was drained to put a new catheter into the bladder patient was taken back to the PACU in good condition I will see him back in 1 month for a Guthrie change in the office. Surgical Findings: New stents placed on both sides Complications Complications: No Admit VTE Documentation VTE Present on Admission: No VTE Mechan Device Prophylaxis: SCD's VTE Pharm Prophylaxis ordered?: No
[2024-07-27 12:58] VITALS: BP 146/69; PULSE 71; RESP 18; TEMP 36.5; O2SAT 98
--- NOTE | 2024-07-27 12:58 | PCM.POST.ANE ---
Anesthesia: Postop Eval I Current Vital Signs Temperature: 97.7 F Pulse Rate: 71 Blood Pressure: 146/69 Respiratory Rate: 18 Pulse Ox: 98 Assessment Airway patent: Yes Spontaneous unlabored respirations: Yes nausea: No Vomiting: No Anesthesia Complication: No Fluid Hydration Crystalloid volume administer (ml): 500 Total IV fluid infused: 500 Progress Note Anesthesia document: Postop Eval 1 completed: Yes
[2024-07-27 13:00] VITALS: BP 140/71; BP 146/69; PULSE 71; RESP 16; TEMP 36.5; O2SAT 96
[2024-07-27 13:05] VITALS: BP 140/71; BP 149/71; PULSE 70; RESP 16; O2SAT 97
[2024-07-27 13:10] VITALS: BP 140/71; BP 165/70; PULSE 72; RESP 16; TEMP 36.5; O2SAT 96
[2024-07-27 13:45] VITALS: BP 140/71
--- NOTE | 2024-07-27 14:06 | SUR.PHASEII ---
[facility] [place]
--- NOTE | 2024-07-27 14:53 | POSTOPAN2_ITS ---
Anesthesia Postop Eval I Sum Postop Eval Completion status Anesthesia document: Postop Eval 1 completed: Yes Anesthesia Postop Eval I Summary Anesthesia Postop Eval I Summary: Anesthesia Postop Eval I: Assessment Summary Airway patent Yes 07/27/24 12:58 PUNCH PRESS OPERATOR [email or web address] Spontaneous unlabored Yes 07/27/24 12:58 PUNCH PRESS OPERATOR HELPER.CSIR respirations Mental status nausea No 07/27/24 12:58 PUNCH PRESS OPERATOR HELPER.CSIR Vomiting No 07/27/24 12:58 PUNCH PRESS OPERATOR HELPER.CSIR Anesthesia Postop Eval I: Fluid Summary Crystalloid volume administer 500 07/27/24 12:58 PUNCH PRESS OPERATOR HELPER.CSIR (ml) Colloids volume administered ( ml) Blood Product volume administered (ml) Total IV fluid infused 500 07/27/24 12:58 PUNCH PRESS OPERATOR HELPER.CSIR Anesthesia Postop Eval I: Summary Notes Anesthesia Complication No 07/27/24 12:58 PUNCH PRESS OPERATOR HELPER.CSIR Anesthesia Complication Comment: Post-operative progress note Anesthesia: Postop Eval II Evaluation Mental status: Awake Pain Level: 0 nausea: No Vomiting: No
--- NOTE | 2024-07-27 14:53 | PCM.POSTANE2 ---
Anesthesia Postop Eval I Sum Postop Eval Completion status Anesthesia document: Postop Eval 1 completed: Yes Anesthesia Postop Eval I Summary Anesthesia Postop Eval I Summary: Anesthesia Postop Eval I: Assessment Summary Airway patent Yes 07/27/24 12:58 RUBBER GASKET INSPECTOR [email or web address] Spontaneous unlabored Yes 07/27/24 12:58 RUBBER GASKET INSPECTOR TRIMMER.CSIR respirations Mental status nausea No 07/27/24 12:58 RUBBER GASKET INSPECTOR TRIMMER.CSIR Vomiting No 07/27/24 12:58 RUBBER GASKET INSPECTOR TRIMMER.CSIR Anesthesia Postop Eval I: Fluid Summary Crystalloid volume administer 500 07/27/24 12:58 RUBBER GASKET INSPECTOR TRIMMER.CSIR (ml) Colloids volume administered ( ml) Blood Product volume administered (ml) Total IV fluid infused 500 07/27/24 12:58 RUBBER GASKET INSPECTOR TRIMMER.CSIR Anesthesia Postop Eval I: Summary Notes Anesthesia Complication No 07/27/24 12:58 RUBBER GASKET INSPECTOR TRIMMER.CSIR Anesthesia Complication Comment: Post-operative progress note Anesthesia: Postop Eval II Evaluation Mental status: Awake Pain Level: 0 nausea: No Vomiting: No
== END 2024-07-27 14:07 | disposition home or self-care (01) ==
LOC: SDC 10:38 → AC 10:40
PROVIDERS: PCP Family Medicine; Referring Provider Urology; Visit Provider Urology
PROC: (CPT 52332; principal; 2024-07-27 12:20)
DX: C61 Malignant neoplasm of prostate (principal); E11.22 Type 2 diabetes mellitus with diabetic chronic kidney disease; N18.9 Chronic kidney disease, unspecified; E78.00 Pure hypercholesterolemia, unspecified; I12.9 Hypertensive chronic kidney disease with stage 1 through stage 4 chronic kidney disease, or unspecified chronic kidney disease; Z79.899 Other long term (current) drug therapy; Z79.84 Long term (current) use of oral hypoglycemic drugs; Z86.16 Personal history of COVID-19
CPT/HCPCS: 52332; 00910; 76000; A4216; C1769; C2617; J2405

== ENCOUNTER 2024-09-05 03:52 | Emergency (ER) | payer MEDICARE, OTHER, SELFPAY ==
[2024-09-05] VITALS (10 sets, daily range): BP systolic 112–147; BP diastolic 68–96; PULSE 64–104; RESP 11–20; TEMP 35.7–37.2; O2SAT 97–100; BMI 21.9
--- NOTE | 2024-09-05 04:24 | CT_ITS ---
PROCEDURE: ABDOMEN/PELVIS WITHOUT CONT 09/05/2024 REASON FOR EXAM: ABD PAIN TECHNIQUE: Abdomen and pelvis CT without intravenous contrast. Noncontrast technique limits evaluation of the abdominal and pelvic viscera. Coronal and Sagittal reconstruction series were provided. One or more dose reduction techniques were used (e.g., Automated exposure control, adjustment of the mA and/or kV according to patient size, use of iterative reconstruction technique). PATIENT PREPARATION: Per protocol ORAL CONTRAST TYPE: None. COMPARISON: CT scan on 10/17/2023. FINDINGS: Mild bilateral basilar atelectatic pulmonary changes. Increase in the size and number of ill-defined hypodense liver lesions, probably diffuse metastatic disease that has increased. The largest metastatic mass is in the right hepatic lobe measuring 10.9 cm on the current exam. Unchanged 6.5 cm right renal cyst. Bilateral double-J nephroureteral stents are again noted, unchanged. Mild increase in moderate right hydroureteronephrosis. Mild decrease in left mild left hydroureteronephrosis. Unchanged prostatomegaly. Unchanged prostatic calcifications. Unchanged left lower quadrant colostomy. Guthrie catheter balloon is seen in the bladder. Diffuse thickening of the bladder. Chronic bladder outlet obstruction versus cystitis. Presacral soft tissue thickening/mass lesion is unchanged. Bilateral fat containing inguinal hernias without incarceration. Moderate osteopenia. Moderate diffuse spondylosis. Fluid-filled distended stomach. Fluid-filled mildly dilated small bowel loops. Surgical changes of the small bowels in the right lower quadrant. Findings may represent ileus versus developing partial/low-grade bowel obstruction. Prior appendectomy. Prior cholecystectomy. Guthrie catheter balloon is seen in the bladder. Normal extrahepatic biliary system. Normal unenhanced spleen. Normal pancreas. Normal bilateral adrenal glands. There is no right renal mass. There are no right renal calculi. There is no left renal mass. There are no left renal calculi. There is no demonstrated peritoneal fluid. Heavily calcified atheromatous plaques of the abdominal aorta. Normal inferior vena cava. CT/Abdomen/Pelvis without Cont IMPRESSION: 1. Mild bilateral basilar atelectatic pulmonary changes. 2. Increase in the size and number of ill-defined hypodense liver lesions, prob ably diffuse metastatic disease that has increased. 3. Unchanged 6.5 cm right renal cyst. 4. Bilateral double-J nephroureteral stents are again noted, unchanged. 5. Mild increase in moderate right hydroureteronephrosis. 6. Mild decrease in left mild left hydroureteronephrosis. 7. Unchanged prostatomegaly. 8. Unchanged prostatic calcifications. 9. Unchanged left lower quadrant colostomy. 10. Guthrie catheter balloon is seen in the bladder. 11. Diffuse thickening of the bladder. Chronic bladder outlet obstruction versu s cystitis. 12. Presacral soft tissue thickening/mass lesion is unchanged. 13. Bilateral fat containing inguinal hernias without incarceration. 14. Moderate osteopenia. 15. Moderate diffuse spondylosis. 16. Fluid-filled distended stomach. 17. Fluid-filled mildly dilated small bowel loops. 18. Surgical changes of the small bowels in the right lower quadrant. 19. Findings may represent ileus versus developing partial/low-grade bowel obst ruction. 20. Prior appendectomy. 21. Prior cholecystectomy. 22. Guthrie catheter balloon is seen in the bladder. Reading [facility]
[2024-09-05] MEDS: 0.9% Normal Saline (1000mL) 1,000 ML 999 ML IV ×2 (04:30→05:26)
[2024-09-05 04:54] LABS: Absolute Lymphocyte Count 0.19 X10^3/uL (0.83-4.51); Absolute Neutrophil Count 18.2 X10^3/uL (2.0-7.7); Basophil# 0.02 X10^3/uL; Basophil% 0.1 % (0-1); Hematocrit 33.4 % (40-54); Hemoglobin 11.3 g/dL (13.0-16.5); Lymphocyte # 0.19 X10^3/ul (0.83-4.51); Mean Corp Hgb Conc 33.8 g/dL (32-36); Mean Corpuscular Hgb 25.6 pg (27.0-32.0); Mean Corpuscular Volume 75.7 fL (80-94); Monocyte# 0.85 X10^3/uL; Monocyte% 4.4 % (0-10); NRBC Flagged by Analyzer 0 % (0-5); Neutrophil % 93.8 % (47-70); POSITIVE DIFFERENTIAL YES; Platelet Count 174 K/mm3 (150-450); RBC Distribution Width CV 18.8 % (11.6-14.6); RBC Distribution Width SD 51.4 fl (35.1-43.9); Red Blood Count 4.41 M/mm3 (4.6-6.2); White Blood Count 19.4 K/mm3 (4.4-11.0)
[2024-09-05] MEDS: Ondansetron 4 MG/2 ML Vial IV (04:57)
[2024-09-05] MEDS: dexAMETHasone 10 MG/ML Vial IV (04:57)
--- NOTE | 2024-09-05 05:13 | RAD_ITS ---
PROCEDURE: CHEST 1 VIEW (PORTABLE) 09/05/2024 REASON FOR EXAM: COUGH TECHNIQUE: Frontal view of the chest. COMPARISON: 06/29/2024 FINDINGS: The lungs are clear. A left-sided port is again noted, appears unchanged. The cardiac and mediastinal contours appear within limits. Atherosclerotic change of the aortic arch again noted. RAD/Chest 1 View (Portable) IMPRESSION: No evidence of acute disease. Reading Location: [id number]
[2024-09-05 05:14] LABS: International Normalized Ratio 1.9
[2024-09-05 05:15] LABS: Partial Thromboplast Time 38.6 Seconds (24.1-36.2)
[2024-09-05] MEDS: Morphine 4 MG/ML Syringe IV (05:25)
--- NOTE | 2024-09-05 05:31 | ED.RN ---
Patient's urine is thick and a light brown color.
[2024-09-05 05:33] LABS: AST(SGOT) 180 U/L (<=37); Alanine Aminotransfer ALT/SGPT 169 U/L (<=46); Albumin, Serum 2.5 g/dL (3.4-4.8); Alkaline Phosphatase 666 U/L (40-129); Anion Gap 22 (5-15); BUN 137 mg/dL (4-19); BUN/Creat Ratio 32.7 RATIO (10-20); Bilirubin, Direct 1.47 mg/dL (0.00-0.30); Calcium,Total 9.1 mg/dL (7.6-11.0); Carbon Dioxide 14.2 mmol/L (21.0-32.0); Chloride 101 mmol/L (98-108); Creatinine, Serum 4.19 mg/dL (0.70-1.20); EST Glomerular Filtration Rate 14 (>60); Globulin 3.3 g/dL (2.2-4.2); Glucose 291 mg/dL (70-99); Lipase 126 U/L (13-75); Magnesium 2.3 mg/dL (1.5-2.2); Potassium 5.1 mmol/L (3.3-5.1); Protein, Total 5.8 g/dL (5.9-8.4); Sodium Level 138 mmol/L (133-145); Total Bilirubin 2.03 mg/dL (0.00-1.30)
[2024-09-05 05:38] LABS: Mucous, Urine 0 SEEN /hpf (<or=2+); Squamous Epithelial Cells - UA 0 SEEN /hpf (0-5)
[2024-09-05 05:45] LABS: Color, Urine Brown (Yellow); Glucose, Dipstick Normal (Normal); Ketone-Dipstick 5 mg/dl (Negative); Leukocyte Esterase-Dipstick 500 /ul (Negative); Nitrite-Dipstick Negative (Negative); Occult Blood-Urine 250 /ul (Negative); Urine Clarity Turbid (Clear); Urine Urobilinogen 1 mg/dl (Normal)
[2024-09-05] MEDS: Piperacil/Tazobactam 3.375 GM in 0.9% Normal Saline (50mL MB+) 50 ML IV (05:45)
[2024-09-05 05:59] LABS: Procalcitonin 5.24 ng/mL (<=0.10)
[2024-09-05] MEDS: proCHLORPERazine 10 MG/2 ML Vial 5 MG IV (06:05)
[2024-09-05 06:06] LABS: Lactic Acid 3.4 mmol/L (0.0-2.0)
[2024-09-05 06:10] LABS: Urine Bilirubin Dipstick 1 mg/dL (Negative)
[2024-09-05 06:12] LABS: Bacteria 4+ /hpf (None Seen); Red Blood Cells-Urine 25-50 SEEN /hpf (0-5); White Blood Cells >100 SEEN /hpf (0-5)
[2024-09-05] MEDS: Vancomycin IV 1,000 MG/200 ML BAG 200 MG IV (06:43)
--- NOTE | 2024-09-05 07:44 | PN.HOSP_ITS ---
Hospitalist Note Mr. Smith is a a very pleasant 79-year-old white male who presents emergency department at [facility] on 09/05/2024 with abdominal pain that had been persistent for 2 days that was centralized and radiated to his chest. He has a known history of metastatic prostate cancer and remote colon cancer status post colectomy and colostomy for which he follows with Dr. Gonzales. His last visit with oncology was on 08/27/2024 at which time his PSA had been elevated to greater than 1100 and disease was expected to be refractory to the chemotherapy he was receiving. Chemotherapy was discontinued as the patient did not want to try anymore and his overall functional status was extremely poor per documentation at that time. Prognosis was felt to be poor and was thought to be weeks to months. Hospice was discussed at that time and the patient indicated he was not yet ready and palliative care was suggested. Patient reports palliative care had not yet contacted him. 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 Thought from oncology was to initiate palliative care and transition to hospice care is appropriate. On presentation today vital signs were as follows: Temperature 96.2, heart rate 87, blood pressure 112/91, respiratory rate was 16 and pulse ox 100% room air. CBC was markedly abnormal with a leukocytosis having a white count of 19.4, hemoglobin of 11.3 with microcytosis, platelet count 174,000 and he has considerable left shift of the 93.8% neutrophilia. Coags were abnormal with a PTT of 22, INR was 1.9 and PTT is 38.6 on no anticoagulation. Chemistry panel was markedly abnormal with a serum bicarb of 14.2, anion gap of 22, BUN of 137 with a serum creatinine of 4.19 (baseline creatinine appears to run between 1.4 and 1.6). He had a markedly elevated lactic acid at 3.4. His glucose was 291. Bilirubin was 2 with a direct bili of 1.4, AST of 180, ALT of 169 and an alk phos of 666. These are all new elevations. His lipase was 126 and his procalcitonin was 5.24. His urinalysis was consistent with dehydration and infection. His specific gravity is 1.02 there is occult blood, ketones, leuk esterase, greater than 100,000 white cells and 4+ bacteria. Imaging was pursued in the form of chest x-ray and CT abdomen pelvis. Chest x-ray was negative for any acute findings. CT of the abdomen pelvis was markedly abnormal with mild bibasilar atelectasis, worsening metastatic disease in the liver with the largest metastatic mass in the right hepatic lobe measuring 10.9 cm, bilateral double-J nephroureteral stents that were unchanged with mild to moderate bilateral hydronephrosis with worsening hydronephrosis on the right, unchanged prostatomegaly, Guthrie catheter in the bladder, diffuse bladder wall thickening, presacral soft tissue thickening/mass, bilateral inguinal hernias containing fat, moderate osteopenia, moderate diffuse spondylosis, and fluid-filled distended stomach with multiple dilated small bowel loops consistent with ileus versus partial small bowel obstruction. Patient met criteria for sepsis. Highly suspect gram-negative bacteremia from urinary tract infection. Cultures were sent in emergency department and broad- spectrum antibiotics with vancomycin and Zosyn were initiated. Given his previous poor prognosis and current state. I went down had extensive co nversation with the patient regarding goals of care. He does have a that lives at home and he helps care for her. She had a stroke but is overall fairly independent at this time. We did discuss the fact that he is fairly ill with a poor functional status begin with, acute kidney injury and would likely require stent exchange based on his current infection that is probably bladder related. Previous cultures were noted and they were with drug-resistant organisms. We discussed his worsening metastatic disease to his liver as well as his worsening liver function in conjunction with coagulopathy related to liver dysfunction and the fact that he would likely not be able to go home after discharge and care for himself or his given his debility at baseline along with acute issues found on admission. Given all the data the patient was able to reflect and decided he would like to discuss options with hospice. I do think that he would qualify for the IPU at this time that would be the patient's desire if possible. I discussed the case with case management and they will get hospice involved to evaluate him with hopeful discharge to hospice later today. CODE STATUS is DNR CC. Procedures Hospitalists Procedures: 80405 Advncd Care Plan 30 Min
[2024-09-05 08:00] LABS: Urine Sodium 66 mmol/L (Not Establ.)
--- NOTE | 2024-09-05 08:12 | EX.ED.DYSGE1 ---
HPI History of Present Illness Chief Complaint: Abd Pain Informant: patient and EMS Narrative Narrative: Patient is a 79-year-old male with past medical history of liver cancer. He states that he has been having bouts of generalized abdominal discomfort and nausea for the last 2 to 3 days. He states that he has not been eating or drinking much secondary to the symptoms. He states he is having worsening weakness and unwell feeling. With concern for potential infection he called EMS and was brought in for evaluation [facility] Medical History 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 History of echocardiogram Fatigue Chronic indwelling Guthrie catheter Ambulatory dysfunction Sinus tachycardia by electrocardiography Chronic kidney disease (CKD) Physical debility Influenza A Complicated UTI (urinary tract infection) Generalized weakness CINV (chemotherapy-induced nausea and vomiting) 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 Anemia Edema of both lower legs Prerenal azotemia Diarrhea due to drug Chemotherapy management, encounter for Encounter for education Elevated PSA Torn meniscus Chronic pain COVID History of Clostridium difficile infection Indwelling urethral catheter present Diabetes Gout High cholesterol Non-smoker History of anal cancer Cancer HTN (hypertension) Home Medications ?Medication ?Instructions ?Recorded ?Last Taken ?Type losartan 100 mg tablet 100 mg PO DAILY bp 06/01/13 07/26/24 History metoprolol succinate 100 mg 100 mg PO DAILY bp 06/01/13 07/26/24 History tablet,extended release 24 hr rosuvastatin 5 mg tablet 5 mg PO DAILY CHOLESTEROL 12/16/21 07/26/24 History amlodipine 10 mg tablet 10 mg PO DAILY BP 01/07/23 07/26/24 History hydralazine 25 mg tablet 25 mg PO TID bp 30 days #90 tabs 03/23/23 07/26/24 Rx metformin 500 mg tablet 500 mg PO BIDCM #60 tabs 06/29/24 07/26/24 Rx dexamethasone 4 mg tablet 4 mg PO QDAY #30 tabs 08/27/24 Unknown Rx ondansetron HCl 8 mg tablet 8 mg PO Q8H #30 tabs 08/27/24 Unknown Rx prochlorperazine maleate 5 mg 5 mg PO TID PRN nausea and 08/27/24 Unknown Rx tablet (Compazine) vomiting #30 tabs Allergy/AdvReac Type Severity Reaction Status Date / Time hydromorphone (From Dilaudid) AdvReac Other Verified 09/05/24 04:00 meperidine (From Demerol) AdvReac Nausea/Vom/ Verified 09/05/24 04:00 Diarrhea Family History Father Myocardial infarction Surgical History Hx of colectomy History of total left knee replacement S/P total knee arthroplasty Hx of cystoscopy Hx of left knee surgery Hx of cystoscopy Hx of cystoscopy Hx of cystoscopy (~05/28/20) Hx of cystoscopy (~01/23/20) Hx of dilation of urethra Hx of cystoscopy Hx of cystoscopy Hx of cystoscopy History of removal of Port-a-Cath Hx of colonoscopy Hx of cataract surgery History of back surgery History of cholecystectomy History of appendectomy Social History household members: spouse Smoking Status: Never smoker alcohol intake: never substance use type: does not use ROS ROS ED Constitutional Constitutional ED: Reports other Details: Positive fatigue ; Denies chills or fever(s) Eyes Eyes: Denies change in vision ENT ENT ED: Denies sore throat Cardiovascular Cardiovascular: Denies chest pain Respiratory/Chest Respiratory/Chest: Denies cough or dyspnea Gastrointestinal Gastrointestinal: Reports abdominal pain and nausea; Denies diarrhea or vomiting Musculoskeletal Musculoskeletal: Denies back pain or myalgias Integumentary Denies rash Neurologic Neurologic: Reports weakness; Denies headache(s) Hematologic/Lymphatic Hematologic/Lymphatic: Reports easy bleeding and easy bruising EXAM Physical Exam Const Vital Signs: 09/05/24 03:52 09/05/24 05:45 09/05/24 06:45 Temperature 96.2 F L 96.2 F L Temperature Source Temporal Oral Pulse Rate 104 H 89 87 Respiratory Rate 20 H 16 16 Blood Pressure 145/87 H 112/91 H 140/91 H Blood Pressure Mean 106 98 107 Pulse Ox 99 100 100 Oxygen Delivery Method Room Air Room Air Room Air 09/05/24 07:00 Temperature Temperature Source Pulse Rate 90 Respiratory Rate 16 Blood Pressure 147/78 H Blood Pressure Mean 101 Pulse Ox 100 Oxygen Delivery Method Room Air Positive well developed and cachectic General Appearance ED: well developed and cachectic Nutritional Appearance: cachectic HEENT Reports dry mucous membranes HEENT Narrative: No tongue or lip swelling no oral lesions no airway edema or compromise No secondary findings of infection in the posterior pharynx Mucous membranes are dry and tacky Mouth ED: Yes dry mucous membranes Mouth: dry mucous membranes Eyes PERRL and EOMs intact bilaterally General Eye ED: Yes pale conjunctiva; Negative for scleral icterus Neck supple Neck Narrative: No nuchal rigidity or meningeal signs noted Chest Wall palpation of chest normal Resp normal respiratory effort and clear to auscultation bilaterally Resp Narrative: Breath sounds are diminished throughout but overall clear to auscultation without signs of respiratory distress Cardio regular rhythm Rate: other Other Details: Slightly tachycardic rate with regular rhythm GI non-distended and no masses GI Narrative: Abdomen is soft and nondistended with hypoactive bowel sounds Ostomy is in place in the left lower abdomen without stool present within the bag There is mild diffuse pain with palpation without voluntary guarding or rigidity No increased tympany No pulsatile mass Auscultation: hypoactive bowel sounds Palpation: soft Narrative: Indwelling Guthrie catheter is in place with large amount of sediment and discolored urine within the bag. No testicular swelling or masses noted No overlying soft tissue changes to suggest Geoffrey's gangrene Extremity normal to inspection Neuro oriented x3, CN's II-XII intact bilaterally and no sensory deficits noted Sensorium / Orientation: alert Psych Psych Narrative: Patient has a depressed/flat affect Mood & Affect: depressed Skin Skin Narrative: Skin is pale in color There are multiple ecchymotic lesions noted Skin turgor is increased consistent with dehydration MDM MDM MDM Narrative Medical decision making narrative: Patient arrived to the ER slightly tachycardic but overall with stable vital. History and exam is concerning for dehydration leading to acute kidney injury. There is also concern for ileus versus small bowel obstruction as he has persistent nausea and no output in his ostomy. Secondary to this basic blood work was obtained and a CT of the abdomen pelvis was ordered. The patient's white blood cell count came back elevated at 19.4 and there is left shift with absolute neutrophil count elevated at 18 and lactic acid up at 3.4. These findings are concerning for sepsis and therefore he was given 2 L of IV fluid which is consistent with the 30 mL/kg fluid bolus present within the sepsis protocol. Blood cultures were obtained and the patient was started on vancomycin and Zosyn. Urine sample did show signs of infection which is most likely the source of his sepsis. However labs did confirm severe dehydration with a creatinine of 4.2 which is drastically increased from his previous of 1.5. His liver enzymes have also drastically increased which correlate with the CT scan displaying worsening of his metastatic/cancer load. The case was discussed with the hospitalist as patient is meeting septic criteria as well as acute kidney injury criteria. With the CT scan showing potentially development of small bowel obstruction there is concern he may need an NG tube and with his urosepsis and ureteral stents already in place there is concern these may harbor infection and will need changed out as well. The patient's prior record from his oncologist was reviewed and that note states that the patient has a poor prognosis with most likely only weeks to months to live. The patient also is no longer performing any type of treatment such as chemotherapy. As this patient's outcome is likely very poor based on the significant intervention needed and his underlying medical disease process it was felt that hospice would be his most humane and best plan of care. The hospitalist did discuss this with the patient and at this time he is agreeable to hospice placement. Therefore hospice was contacted and they will evaluate the patient in ER to discuss inpatient treatment History & Record Review Discussion w/independent historian: EMS personnel and Patient Additional record(s) reviewed:: Prior outpatient record Lab Data Attestation: I reviewed the patient's lab results. Labs: Laboratory Results - last 24 hr 09/05/24 09/05/24 09/05/24 04:30 05:20 05:30 WBC 19.4 H RBC 4.41 L Hgb 11.3 L Hct 33.4 L MCV 75.7 L MCH 25.6 L MCHC 33.8 RDW Std Deviation 51.4 H RDW Coeff of [place] 18.8 H Plt Count 174 MPV TNP Immature Gran % (Auto) 0.700 Neut % (Auto) 93.8 H Lymph % (Auto) 1.0 L [place] % (Auto) 4.4 Eos % (Auto) 0.0 Baso % (Auto) 0.1 Absolute Neuts (auto) 18.2 H Absolute Lymphs (auto) 0.19 L Nucleated RBC % 0 PT 22.0 H INR 1.9 APTT 38.6 H Sodium 138 Potassium 5.1 Chloride 101 Carbon Dioxide 14.2 L Anion Gap 22 H BUN 137 H* Creatinine 4.19 H Estim Creat Clear Calc 13.20 L Est GFR (MDRD) Non-Af 14 L BUN/Creatinine Ratio 32.7 H Glucose 291 H Lactic Acid 3.4 H* Calcium 9.1 Magnesium 2.3 H Total Bilirubin 2.03 H Direct Bilirubin 1.47 H AST 180 H ALT 169 H Alkaline Phosphatase 666 H Total Protein 5.8 L Albumin 2.5 L Globulin 3.3 Lipase 126 H Procalcitonin 5.24 H Urine Color Brown Urine Clarity Turbid Urine pH 5.0 Ur Specific [place] 1.020 Urine Protein TNP Urine Glucose (UA) Normal Urine Ketones 5 H Urine Occult Blood 250 H Urine Nitrite Negative Urine Bilirubin 1 H Urine Urobilinogen 1 H Ur Leukocyte Esterase 500 H Urine RBC 25-50 SEEN Urine WBC >100 SEEN Ur Squamous Epith Cells 0 SEEN Urine Bacteria 4+ Urine Mucus 0 SEEN U Random Total Protein 255.0 H Ur Random Sodium 66 Urine Creatinine 46.20 Radiography Diagnostic Testing: Clinical Impression(s) from Imaging Studies Abdomen/Pelvis CT 09/05/24 04:24 IMPRESSION: 1. Mild bilateral basilar atelectatic pulmonary changes. 2. Increase in the size and number of ill-defined hypodense liver lesions, probably diffuse metastatic disease that has increased. 3. Unchanged 6.5 cm right renal cyst. 4. Bilateral double-J nephroureteral stents are again noted, unchanged. 5. Mild increase in moderate right hydroureteronephrosis. 6. Mild decrease in left mild left hydroureteronephrosis. 7. Unchanged prostatomegaly. 8. Unchanged prostatic calcifications. 9. Unchanged left lower quadrant colostomy. 10. Guthrie catheter balloon is seen in the bladder. 11. Diffuse thickening of the bladder. Chronic bladder outlet obstruction versus cystitis. 12. Presacral soft tissue thickening/mass lesion is unchanged. 13. Bilateral fat containing inguinal hernias without incarceration. 14. Moderate osteopenia. 15. Moderate diffuse spondylosis. 16. Fluid-filled distended stomach. 17. Fluid-filled mildly dilated small bowel loops. 18. Surgical changes of the small bowels in the right lower quadrant. 19. Findings may represent ileus versus developing partial/low-grade bowel obstruction. 20. Prior appendectomy. 21. Prior cholecystectomy. 22. Guthrie catheter balloon is seen in the bladder. [facility] 09/05/24 05:13 IMPRESSION: No evidence of acute disease. Reading Location: [id number] Management Discussion w/another healthcare provider: Hospitalist and Turning Sander Tender Discharge Plan Triage Chief Complaint: Abd Pain ED Provider: Karthikeyan Sebastian Dx/Rx/DC Orders Clinical Impression: Acute kidney injury, Severe dehydration, UTI (urinary tract infection), Sepsis, SBO (small bowel obstruction), Cancer of liver Prescriptions: No Action amlodipine 10 mg tablet 10 mg PO DAILY ondansetron HCl 8 mg tablet 8 mg PO Q8H Qty: 30 2RF prochlorperazine maleate [Compazine] 5 mg tablet 5 mg PO TID PRN (Reason: nausea and vomiting) Qty: 30 0RF dexamethasone 4 mg tablet 4 mg PO QDAY Qty: 30 0RF metoprolol succinate 100 MG tablet 100 mg PO DAILY losartan 100 MG tablet 100 mg PO DAILY Patient Comments: BP rosuvastatin 5 mg tablet 5 mg PO DAILY hydralazine 25 mg Tablet 25 mg PO TID 30 Days Qty: 90 0RF metformin 500 mg Tablet 500 mg PO BIDCM Qty: 60 0RF Primary Care Provider: Rigo Izaguirre Referrals: Rigo Izaguirre MD [Primary Care Provider] - Print Language: Slovak Disposition Disposition: Hospice in Medical Facility
--- NOTE | 2024-09-05 08:14 | CASEMGMT ---
Social Work- SW notified of hospice referral request by physician. SW called and completed referral to [facility]. [facility] to notify of assessment time when scheduled. SW remains available to follow. Physician updated. MARY Sanchez
[2024-09-05] MEDS: 0.9% Normal Saline (1000mL) 1,000 ML 150 ML IV (09:30)
[2024-09-05 09:36] LABS: Reflex Lactate? Y
--- NOTE | 2024-09-05 13:09 | CM.ED ---
Social Work SW met with hospice nurse and patient. Patient agreeable to IPU and signed paperwork with hospice nurse. SW asked patient if he felt his was safe being home on her own, patient stated that was able to care for self but that she does not drive. Patient asked that SW call his to inform her of discharge plan. Same done, was understanding of the discharge plans and told SW that she was safe on her own at this time. SW offered to coordinate a ride so could visit patient in the hospice unit, declined stating she has a dog to care for and as this time she would just prefer to talk with patient over the phone. Hospice nurse made aware of same. Plan: inpatient hospice unit pending transportation Roseanna Santamaria MSW, FORCE DISPATCHER
[2024-09-05] MEDS: Morphine 2 MG/ML Syringe IV (18:23)
--- NOTE | 2024-09-07 10:49 | CASEMGMT ---
Social Work- SW called [facility] to follow up on pt transfer. Pt remains in IPU. Pt has not visited at this time. SW called [facility], Jacy, and left a message to inquire if services had ever been established. SW called pt Claudia. Claudia has challenges speaking over the phone. Nichelle, [facility] speech, was in the home and was able to assist pt in having conversation and offered coordination with SW. Pt is being picked up by hospice volunteers at 11:30 today to allow Claudia to visit pt in IPU. This will be an ongoing option for Claudia to utilize. Nichelle reports that [facility] was scheduled to be d/c today, however, she is going to ask for extension given the current circumstances. Nichelle will request [facility] SW. Nichelle reports that Claudia is not able to effectively pay bills or preform written communication and also struggles with more complex thinking. Nichelle reports that physically pt is able to manage the home and ADLs, including med management. Claudia drove prior to seizure in February and has been awaiting clearance for return to driving, however, there is no timeline for this. Claudia is reluctant to allow or ask for assistance. Claudia did indicate that a cousin in [place] did offer to come up. Cousin is Emily Feliz [phone]; work number: [phone]. Claudia is agreeable to SW reaching out to Emily. Pt also has a sister Marti in [place], [place] who is disabled herself, but could be utilized as emotional support. Marti's contact information is [phone]. SW to follow for needs, verification if [facility] is able to continue services. MARY Sanchez
--- NOTE | 2024-09-11 15:00 | CASEMGMT ---
Social Work- WARNER called [facility] and spoke with Cassandra regarding extension of HHC for pt . Cassandra reports that services have been extended and WARNER Keller will be making a visit Tuesday. Cassandra reports that pt has several caregivers/family members who have reached out and are stepping up to formulate plans for termite exterminator helper assistance for pt . WARNER spoke with Jacy at [facility] who reports that pt has not been receiving services at this time. MARY Sanchez
== END 2024-09-05 19:00 | disposition hospice, inpatient (51) ==
PROVIDERS: Internal Medicine; Emergency Provider Emergency Medicine; PCP Family Medicine; Visit Provider Emergency Medicine
DX: N17.9 Acute kidney failure, unspecified (principal); C22.9 Malignant neoplasm of liver, not specified as primary or secondary; K56.609 Unspecified intestinal obstruction, unspecified as to partial versus complete obstruction; E11.22 Type 2 diabetes mellitus with diabetic chronic kidney disease; I12.9 Hypertensive chronic kidney disease with stage 1 through stage 4 chronic kidney disease, or unspecified chronic kidney disease; N18.9 Chronic kidney disease, unspecified; E78.00 Pure hypercholesterolemia, unspecified; N39.0 Urinary tract infection, site not specified; Z79.899 Other long term (current) drug therapy; Z79.84 Long term (current) use of oral hypoglycemic drugs; Z86.16 Personal history of COVID-19
CPT/HCPCS: 36591; 51702; 71045; 74176; 80048; 80076; 81001; 82570; 83605; 83690; 83735; 84145; 84156; 84300; 85025; 85610; 85730; 87040; 87077; 87086; 87088; 87186; 96361; 96365; 96375; 96376; 99285; A4216; J2405